=== PATIENT | female | born 1985 | race Caucasian/White ===

== ENCOUNTER 2017-09-14 00:18 | Inpatient (IN) | payer BC ==
[2017-09-14] MEDS ORDERED: Water For Irrigation,Sterile 1,000 ML Container IRR PRN (00:33)
[2017-09-14] MEDS ORDERED: Sodium Chloride 0.9% 2.5 ML Syringe FLUSH PRN (00:33)
[2017-09-14] MEDS ORDERED: Sodium Chloride 0.9% 10 ML Syringe FLUSH PRN (00:33)
[2017-09-14] MEDS ORDERED: Carboprost Tromethamine 250 MCG/1 ML Amp IM PRN (00:33)
[2017-09-14] MEDS ORDERED: Nalbuphine 10 MG/1 ML Vial IVPUSH PRN (00:33)
[2017-09-14] MEDS ORDERED: Misoprostol 200 MCG Tab PO PRN (00:33)
[2017-09-14] MEDS ORDERED: Ampicillin 2 GM in Sodium Chloride 0.9% 100 ML IV ONE (00:33)
[2017-09-14] MEDS ORDERED: Methylergonovine 0.2 MG/1 ML Amp IM PRN (00:33)
[2017-09-14] MEDS ORDERED: Lidocaine 1% 50 ML MDV INJECT PRN (00:33)
[2017-09-14] MEDS ORDERED: Misoprostol 25 MCG (1/4 of 100 MCG) Tab VAG PRN (00:38)
[2017-09-14] MEDS ORDERED: Terbutaline 1 MG/ML SDV SUBCUT PRN (00:38)
[2017-09-14] MEDS ORDERED: Misoprostol 25 MCG (1/4 of 100 MCG) Tab VAG SCH (00:45)
[2017-09-14] MEDS: Lactated Ringers 1,000 ML IV SCH ×4 (01:00→09:35)
[2017-09-14] MEDS: Butorphanol 1 MG/ML SDV IVPUSH PRN ×2 (04:06→08:06)
[2017-09-14] MEDS: Ampicillin 1 GM in Sodium Chloride 0.9% 50 ML IV SCH ×3 (06:21→14:08)
[2017-09-14] MEDS ORDERED: fentaNYL 100 MCG/2 ML SDV ONE (08:25)
[2017-09-14] MEDS ORDERED: Ropivacaine HCl/PF 100 ML ONE (08:26)
--- NOTE | 2017-09-14 09:07 | PCM.PREANE ---
Preanesthetic Assessment - Procedure Proposed Procedure: labor epidural - Anesthesia/Transfusion/Family Hx Anesthesia History: Prior Anesthesia Without Reaction Family History of Anesthesia Reaction: No Transfusion History: No Prior Transfusion(s) Intubation History: Unknown - Review of Systems General: Other (active labor) Pulmonary: No Symptoms Cardiovascular: No Symptoms Gastrointestinal: Other (severe GERD) Neurological: Other (pain of labor) Other: Reports: Anxiety - Physical Assessment NPO Status Date: 09/14/17 NPO Status Time: 07:00 Height: 5 ft 2 in Weight: 134 lb ASA Class: 2 Mental Status: Alert & Oriented x3 Airway Class: Mallampati = 1 Dentition: Reports: Normal Dentition Thyro-Mental Finger Breadths: 3 Mouth Opening Finger Breadths: 3 ROM/Head Extension: Full Lungs: Clear to Auscultation, Normal Respiratory Effort Cardiovascular: Regular Rate, Regular Rhythm, No Murmurs - Lab Values: Laboratory Last Values WBC 8.77 K/uL (4.0-11.0) 09/14/17 01:00 RBC 3.47 M/uL (4.30-5.90) L 09/14/17 01:00 Hgb 11.1 g/dL (12.0-16.0) L 09/14/17 01:00 Hct 33.4 % (36.0-46.0) L 09/14/17 01:00 MCV 96.3 fL (80.0-98.0) 09/14/17 01:00 MCH 32.0 pg (27.0-32.0) 09/14/17 01:00 MCHC 33.2 g/dL (31.0-37.0) 09/14/17 01:00 RDW Std Deviation 47.0 fl (28.0-62.0) 09/14/17 01:00 RDW Coeff of Blue 14 % (11.0-15.0) 09/14/17 01:00 Plt Count 202 K/uL (150-400) 09/14/17 01:00 MPV 11.60 fL (7.40-12.00) 09/14/17 01:00 Blood Type O NEGATIVE 09/14/17 01:00 Antibody Screen NEGATIVE 09/14/17 01:00 - Allergies Allergies/Adverse Reactions: Allergies Allergy/AdvReac Type Severity Reaction Status Date / Time codeine Allergy Nausea and Verified 09/14/17 00:32 Vomiting - Blood Blood Available: No Product(s) Available: None - Acknowledgements Anesthesia Type Planned: Epidural Pt an Appropriate Candidate for the Planned Anesthesia: Yes Alternatives and Risks of Anesthesia Discussed w Pt/Guardian: Yes Pt/Guardian Understands and Agrees with Anesthesia Plan: Yes PreAnesthesia Questionnaire HEENT History: Reports: None Respiratory History: Reports: Other (See Below) Other Respiratory History: pluerisy Gastrointestinal History: Reports: Other (See Below) Other Gastrointestinal History: heartburn Genitourinary History: Reports: Other (See Below) Other Genitourinary History: yeast infection during Musculoskeletal History: Reports: Back Pain, Chronic Other Musculoskeletal History: hx herniated disc in lower back Oncologic (Cancer) History: Reports: Cervix - Infectious Disease History Infectious Disease History: Reports: Chicken Pox - Past Surgical History HEENT Surgical History: Reports: Oral Surgery Other HEENT Surgeries/Procedures: teeth removed at 26 years of age wears dentures Oncologic Surgical History: Reports: Other (See Below) Other Oncologic Surgeries/Procedures: LEEP - SUBSTANCE USE Smoking Status *Q: Current Every Day Smoker Tobacco Use Within Last Twelve Months: Smokeless Tobacco Second Hand Smoke Exposure: No Recreational Drug Use History: No - CURRENT (IN HOUSE) MEDS Current Meds: Current Medications Butorphanol Tartrate (Stadol) 1 mg IVPUSH Q1H PRN PRN Reason: Pain Last Admin: 09/14/17 08:06 Dose: 1 mg Carboprost Tromethamine (Hemabate Ds) 250 mcg IM ASDIRECTED PRN PRN Reason: Post Hemorrhage Lactated Ringer's (Ringers, Lactated) 1,000 mls @ 150 mls/hr IV ASDIRECTED DENISE Last Admin: 09/14/17 08:41 Dose: 150 mls/hr Oxytocin/Sodium Chloride (Oxytocin 30 Unit/500 Ml-Ns) 30 unit in 500 mls @ 2 mls/hr IV TITRATE DENISE; 2 MUNITS/MIN PRN Reason: Protocol Ampicillin Sodium 1 gm/ Sodium (Chloride) 50 mls @ 100 mls/hr IV Q4H DENISE Last Admin: 09/14/17 06:21 Dose: 100 mls/hr Lidocaine HCl (Xylocaine 1%) 50 ml INJECT .ONCE PRN PRN Reason: Laceration repair Methylergonovine Maleate (Methergine) 0.2 mg IM ASDIRECTED PRN PRN Reason: Post Hemorrhage Misoprostol (Cytotec) 200 mcg PO .ONCE PRN PRN Reason: Post Hemorrhage Misoprostol (Cytotec) 25 mcg VAG .ONCE DENISE Last Admin: 09/14/17 02:12 Dose: 25 mcg Misoprostol (Cytotec) 25 mcg VAG Q4H PRN PRN Reason: Cervical Ripening Nalbuphine HCl (Nubain) 10 mg IVPUSH Q1H PRN PRN Reason: Pain (severe 7-10) Sodium Chloride (Saline Flush) 10 ml FLUSH ASDIRECTED PRN PRN Reason: Keep Vein Open Sodium Chloride (Saline Flush) 2.5 ml FLUSH ASDIRECTED PRN PRN Reason: Keep Vein Open Sterile Water (Sterile Water For Irrigation) 1,000 ml IRR ASDIRECTED PRN PRN Reason: delivery Terbutaline Sulfate (Brethine) 0.25 mg SUBCUT ASDIRECTED PRN PRN Reason: Tacysystole Discontinued Medications Fentanyl (Sublimaze) Confirm Administered Dose 100 mcg .ROUTE .STK-MED ONE Stop: 09/14/17 08:26 Ampicillin Sodium 2 gm/ Sodium (Chloride) 100 mls @ 200 mls/hr IV ONETIME ONE Stop: 09/14/17 01:02 Last Admin: 09/14/17 01:25 Dose: 200 mls/hr Ropivacaine (Naropin 0.2%) Confirm Administered Dose 100 mls @ as directed .ROUTE .STK-MED ONE Stop: 09/14/17 08:27
--- NOTE | 2017-09-14 10:39 | PCM.SN ---
- Free Text/Narrative Note: Pump alarmed. bedside changes and patient vitals observed - no change, comfortable, labor progressing.
[2017-09-14] MEDS: Oxytocin/0.9 % Sodium Chloride 30 UNIT/500 ML BAG IV SCH ×2 (16:05→16:36)
[2017-09-14] MEDS ORDERED: Oxytocin 10 Units/1 ML SDV ONE (16:26)
[2017-09-14] MEDS ORDERED: Bisacodyl 10 MG Supp RECTAL PRN (16:41)
[2017-09-14] MEDS ORDERED: Docusate Sodium 100 MG Cap PO PRN (16:41)
[2017-09-14] MEDS ORDERED: Benzocaine/Menthol 20%-0.5% Spray 78 GM Cannister TOP PRN (16:41)
[2017-09-14] MEDS ORDERED: Ibuprofen 400 MG Tab PO PRN (16:41)
[2017-09-14] MEDS ORDERED: Acetaminophen 500 MG Tab PO PRN ×2 (16:41)
[2017-09-14] MEDS ORDERED: Witch Hazel Medicated Pads 40/Jar TOP PRN (16:41)
[2017-09-14] MEDS ORDERED: Lanolin 100% Cream 7 GM Tube TOP PRN (16:41)
[2017-09-14] MEDS: Ibuprofen 800 MG Tab PO PRN (17:36)
[2017-09-14] MEDS: oxyCODONE 5 MG Tab PO PRN ×2 (18:09→21:28)
--- NOTE | 2017-09-14 21:26 | PCM48HPAN ---
Post Anesthesia Note - EVALUATION WITHIN 48HRS OF ANESTHETIC Vital Signs in Normal Range: Yes Patient Participated in Evaluation: Yes Respiratory Function Stable: Yes Airway Patent: Yes Cardiovascular Function Stable: Yes Hydration Status Stable: Yes Pain Control Satisfactory: Yes Nausea and Vomiting Control Satisfactory: Yes Mental Status Recovered: Yes - COMMENTS/OBSERVATIONS Free Text/Narrative:: epidural cath removed by RN intact after delivery early this afternoon. Holding baby and feeling very well without complaint. very happy with choice of having epidural analgesia to permit an easier labor than her prior two pregnancies/ deliveries.
[2017-09-15] MEDS: oxyCODONE 5 MG Tab PO PRN ×4 (01:21→17:41)
[2017-09-15] MEDS: Ibuprofen 800 MG Tab PO PRN ×3 (01:22→16:35)
[2017-09-15] MEDS ORDERED: Measles, Mumps & Rubella Vaccine 0.5 ML SDV SUBCUT ONE (10:56)
--- NOTE | 2017-09-15 11:01 | PCM.PNPP ---
- General Info Date of Service: 09/15/17 Admission Dx/Problem (Free Text): 32 yo P3 s/p PPD1 Subjective Update: Patient seen at bedside , ambulating , voiding tolerating regular diet, she complains of back pain and bilateral pedal edema , non tender Functional Status: Reports: Pain Controlled, Tolerating Diet - Review of Systems General: Reports: No Symptoms HEENT: Reports: No Symptoms Pulmonary: Reports: No Symptoms Cardiovascular: Reports: No Symptoms Gastrointestinal: Reports: No Symptoms Genitourinary: Reports: No Symptoms Musculoskeletal: Reports: No Symptoms Skin: Reports: No Symptoms Neurological: Reports: No Symptoms Psychiatric: Reports: No Symptoms - General Info Date of Service: 09/15/17 - Patient Data Vital Signs - Most Recent: Last Vital Signs Temp 36.3 C 09/15/17 08:16 Pulse 65 09/15/17 08:16 Resp 16 09/15/17 08:16 BP 95/63 09/15/17 08:16 Pulse Ox 97 09/15/17 08:16 Weight - Most Recent: 60.781 kg Lab Results - Last 24 Hours: Laboratory Results - last 24 hr 09/14/17 09/15/17 Range/Units 16:41 05:34 Hgb 10.0 L (12.0-16.0) g/dL Hct 30.7 L (36.0-46.0) % Rhogam Indicated NO, MOM+BABY RH NEG Med Orders - Current: Current Medications Acetaminophen (Tylenol Extra Strength) 500 mg PO Q4H PRN PRN Reason: Pain Last Admin: 09/14/17 21:29 Dose: 500 mg Acetaminophen (Tylenol Extra Strength) 1,000 mg PO Q4H PRN PRN Reason: Pain Benzocaine/Menthol (Dermoplast Pain Relief 20%-0.5% [place]) 78 gm TOP ASDIRECTED PRN PRN Reason: Perineal Comfort Measure Last Admin: 09/14/17 18:14 Dose: 1 sprays(dnu) Bisacodyl (Dulcolax) 10 mg RECTAL .ONCE PRN PRN Reason: Constipation Butorphanol Tartrate (Stadol) 1 mg IVPUSH Q1H PRN PRN Reason: Pain Last Admin: 09/14/17 08:06 Dose: 1 mg Carboprost Tromethamine (Hemabate Ds) 250 mcg IM ASDIRECTED PRN PRN Reason: Post Hemorrhage Docusate Sodium (Colace) 100 mg PO BID PRN PRN Reason: Constipation Emollient Ointment (Lansinoh Hpa) 0 gm TOP ASDIRECTED PRN PRN Reason: Sore Nipples Last Admin: 09/14/17 18:13 Dose: 1 applic Lactated Ringer's (Ringers, Lactated) 1,000 mls @ 150 mls/hr IV ASDIRECTED DENISE Last Admin: 09/14/17 09:35 Dose: 150 mls/hr Oxytocin/Sodium Chloride (Oxytocin 30 Unit/500 Ml-Ns) 30 unit in 500 mls @ 2 mls/hr IV TITRATE DENISE; 2 MUNITS/MIN PRN Reason: Protocol Last Admin: 09/14/17 16:36 Dose: 500 mls/hr Ampicillin Sodium 1 gm/ Sodium (Chloride) 50 mls @ 100 mls/hr IV Q4H [facility] Last Admin: 09/14/17 14:08 Dose: 100 mls/hr Ibuprofen (Motrin) 400 mg PO Q4H PRN PRN Reason: Pain Ibuprofen (Motrin) 800 mg PO Q6H PRN PRN Reason: Pain Last Admin: 09/15/17 08:12 Dose: 800 mg Lidocaine HCl (Xylocaine 1%) 50 ml INJECT .ONCE PRN PRN Reason: Laceration repair Measles/Mumps/Rubella Vaccine Live (M-M-R Ii Vaccine) 0.5 ml SUBCUT .ONCE ONE Stop: 09/15/17 10:57 Methylergonovine Maleate (Methergine) 0.2 mg IM ASDIRECTED PRN PRN Reason: Post Hemorrhage Misoprostol (Cytotec) 200 mcg PO .ONCE PRN PRN Reason: Post Hemorrhage Misoprostol (Cytotec) 25 mcg VAG .ONCE DENISE Last Admin: 09/14/17 02:12 Dose: 25 mcg Misoprostol (Cytotec) 25 mcg VAG Q4H PRN PRN Reason: Cervical Ripening Nalbuphine HCl (Nubain) 10 mg IVPUSH Q1H PRN PRN Reason: Pain (severe 7-10) Oxycodone HCl (Oxycodone) 5 mg PO Q2H PRN PRN Reason: Pain Last Admin: 09/15/17 08:13 Dose: 5 mg Sodium Chloride (Saline Flush) 10 ml FLUSH ASDIRECTED PRN PRN Reason: Keep Vein Open Sodium Chloride (Saline Flush) 2.5 ml FLUSH ASDIRECTED PRN PRN Reason: Keep Vein Open Sterile Water (Sterile Water For Irrigation) 1,000 ml IRR ASDIRECTED PRN PRN Reason: delivery Last Admin: 09/14/17 16:18 Dose: 1,000 ml Terbutaline Sulfate (Brethine) 0.25 mg SUBCUT ASDIRECTED PRN PRN Reason: Tacysystole Witch Nandini (Tucks) 1 pad TOP ASDIRECTED PRN PRN Reason: comfort care Last Admin: 09/14/17 18:15 Dose: 2 pad Discontinued Medications Fentanyl (Sublimaze) Confirm Administered Dose 100 mcg .ROUTE .STK-MED ONE Stop: 09/14/17 08:26 Ampicillin Sodium 2 gm/ Sodium (Chloride) 100 mls @ 200 mls/hr IV ONETIME ONE Stop: 09/14/17 01:02 Last Admin: 09/14/17 01:25 Dose: 200 mls/hr Ropivacaine (Naropin 0.2%) Confirm Administered Dose 100 mls @ as directed .ROUTE .STK-MED ONE Stop: 09/14/17 08:27 Oxytocin (Pitocin) Confirm Administered Dose 10 unit .ROUTE .STK-MED ONE Stop: 09/14/17 16:27 - Infant Interaction Infant Disposition, : Cadet at Bedside Support Person: - Recovery Exam Fundal Tone: Firm Fundal Level: 1 Fingerbreadths Below Umbilicus Fundal Placement: Midline Lochia Amount: Scant Lochia Color: Rubra/Red Perineum Description: Edematous Episiotomy/Laceration: Approximated Bladder Status: Voiding Urinary Elimination: Voided - Exam General: Alert HEENT: Pupils Equal Lungs: Clear to Auscultation Cardiovascular: Regular Rate GI/Abdominal Exam: Normal Bowel Sounds Extremities: Normal Inspection - Problem List & Annotations (1) Vaginal delivery SNOMED Code(s): 147998128 Code(s): O80 - ENCOUNTER FOR FULL-TERM UNCOMPLICATED DELIVERY Status: Acute Current Visit: Yes - Problem List Review Problem List Initiated/Reviewed/Updated: Yes - My Orders Last 24 Hours: My Active Orders 09/14/17 16:41 Acetaminophen [Tylenol Extra Strength] 1,000 mg PO Q4H PRN Acetaminophen [Tylenol Extra Strength] 500 mg PO Q4H PRN Benzocaine/Menthol [Dermoplast Pain Relief 20%-0.5% [place]] 78 gm TOP ASDIRECTED PRN Bisacodyl [Dulcolax] 10 mg RECTAL .ONCE PRN Docusate Sodium [Colace] 100 mg PO BID PRN Ibuprofen [Motrin] 400 mg PO Q4H PRN Ibuprofen [Motrin] 800 mg PO Q6H PRN Lanolin [Lansinoh HPA] See Dose Instructions TOP ASDIRECTED PRN Witch Nandini [Tucks] 1 pad TOP ASDIRECTED PRN oxyCODONE 5 mg PO Q2H PRN 09/14/17 16:42 Patient Status [ADT] Routine May Shower [RC] ASDIRECTED Vital Signs [RC] PER UNIT ROUTINE Assess Lochia [WOMSER] Per Unit Routine Assess Uterine Involution [WOMSER] Per Unit Routine Peripheral IV Discontinue [OM.PC] Routine 09/15/17 10:56 Vaccines to be Administered [RC] PER UNIT ROUTINE Measles, Mumps & Rubella [M-M-R II Vaccine] 0.5 ml SUBCUT .ONCE ONE 09/15/17 Breakfast Regular Diet [DIET] - Assessment Assessment:: 32 yo P3 s/p , 2nd degree laceration repaired , RH negative , rh negative - Plan Plan:: Discharge home today Continue Iron and PNV OTC pain control with Motrin and tylenol MMR before discharge
--- NOTE | 2017-09-15 17:41 | OR ---
SURGEON: SUHA PETER DATE OF PROCEDURE: PREOPERATIVE DIAGNOSES: A 32-year-old 5, para 2-0-2-2, at 39 weeks 0 days for an elective induction of labor. GBS positive , O negative. mild intermittent asthma. POSTOPERATIVE DIAGNOSES: A 32-year-old, para 3 now, status post normal spontaneous vaginal delivery. Second-degree perineal laceration repaired . ESTIMATED BLOOD LOSS: 350. ANESTHESIA: Epidural. BRIEF HISTORY: The patient is a 32-year-old, G5, P2-0-2-2, at 39 weeks 0 days, wanted to be induced electively because of the availability of her . She had an uncomplicated , except for lower back pain, which she managed with pain reliever and she was seen by chiropractor. O negative, received RhoGAM, had mild intermittent asthma which was well controlled. On admission for induction, she was 1, 70, -3. Ampicillin was given for GBS prophylaxis She received one dose of Cytotec after which she became 4, 50, -3. The patient progressed on her own and when she was re-evaluated, she was 6, 50, -2 , AROM done., Clear fluid was noted. The patient had a normal labor course and became fully dilated. Throughout the induction period, the patient had a category 1 heart tracing. When the patient was fully dilated, she was encouraged to push. The patient pushed for about an hour FINDINGS: A live female delivered at 1604 hours, score was 9 and 9. Wt 7lb 50z She had a 3-vessel cord and also a second-degree perineal laceration was noted which was repaired. PROCEDURE DETAILS: After the patient was noted to be fully dilated, she was encouraged to push. With the patient's good pushing effort,there was a gradual descent of head through the perineum. With maternal pushing effort, the head was delivered, then the shoulder was allowed to restitute. Anterior shoulder was delivered, followed by the posterior shoulder. There was cord noted around the body, which was reduced. After delivery of the baby, the baby was placed on the mother's abdomen. Delayed cord clamping was observed. The cord was then clamped and cut. The placenta was delivered via controlled contraction. After delivery of the placenta, placenta was inspected and noted to be intact. The perineum was also then inspected and noted to have a second-degree laceration which was repaired with 3-0 Monocryl interlocking. After repair of the perineum. The uterus was found to be firm, and the perineum was found to be hemostatic. All instrument and pad counts were correct x2, and the patient was bonding with mother. LYNNE JUAREZ /[id number] JOSÉ MIGUEL
[2017-09-17] MEDS ORDERED: Measles, Mumps & Rubella Vaccine 0.5 ML SDV SUBCUT ONE (10:56)
== END 2017-09-15 18:55 | disposition home or self-care (01) | DRG 560 ==
LOC: MW.OBCHECK 00:18 → MW.OB 00:23 → OBSVTOIN 16:04
PROVIDERS: ADMIT Obstetrics & Gynecology; ATTEND Obstetrics & Gynecology
PROC: 10E0XZZ Delivery of Products of Conception, External Approach (ICD-10-PCS; principal; 2017-09-14)
PROC: 3E0P7VZ Introduction of Hormone into Female Reproductive, Via Natural or Artificial Opening (ICD-10-PCS; 2017-09-14)
PROC: 10907ZC Drainage of Amniotic Fluid, Therapeutic from Products of Conception, Via Natural or Artificial Opening (ICD-10-PCS; 2017-09-14)
PROC: 0KQM0ZZ Repair Perineum Muscle, Open Approach (ICD-10-PCS; 2017-09-14)
DX: O70.1 Second degree perineal laceration during delivery (principal); Z3A.39 39 weeks gestation of pregnancy; Z37.0 Single live birth; J45.909 Unspecified asthma, uncomplicated
CPT/HCPCS: 36415; 51702; 59025; 59409; 85014; 85018; 85027; 86850; 86900; 86901; A9270-GY; J0290; J0595; J2590; J7030; J7050; J7120

== ENCOUNTER 2020-09-17 08:35 | Emergency (ER) | payer BC ==
[2020-09-17] MEDS ORDERED: Sodium Chloride 0.9% 2.5 ML Syringe FLUSH PRN (08:50)
[2020-09-17] MEDS ORDERED: Sodium Chloride 0.9% 10 ML Syringe FLUSH PRN (08:50)
[2020-09-17 09:33] LABS: CARBON DIOXIDE,CO2 31.7 mmol/L (21.0-32.0); POTASSIUM,K 2.8 mmol/L (3.5-5.1)
[2020-09-17] MEDS ORDERED: fentaNYL 50 MCG/ML SDV IVPUSH ONE ×2 (09:35→12:35)
[2020-09-17] MEDS ORDERED: Famotidine 20 MG/2 ML SDV IVPUSH ONE (09:35)
[2020-09-17] MEDS ORDERED: Ondansetron 4 MG/2 ML SDV IVPUSH ONE ×2 (09:35→12:35)
[2020-09-17] MEDS ORDERED: Potassium Chloride 10% 20 MEQ/15 ML Soln 30 ML UD Cup PO ONE (09:58)
[2020-09-17] MEDS ORDERED: Magnesium Sulfate/Water 2 GM in Premix Bag 1 BAG IV ONE (09:58)
[2020-09-17] MEDS ORDERED: Lactated Ringers 1,000 ML IV ONE (09:58)
--- NOTE | 2020-09-17 10:23 | EDM.PDOC ---
ED HPI GENERAL MEDICAL PROBLEM - General Chief Complaint: Abdominal Pain Stated Complaint: LIVER ISSUES Time Seen by Provider: 09/17/20 08:48 Source of Information: Reports: Patient, Old Records History Limitations: Reports: No Limitations - History of Present Illness INITIAL COMMENTS - FREE TEXT/NARRATIVE: This is a 35-year-old female with a past medical history of alcohol dependence and GERD, being worked up for new alcoholic liver disease presenting with nausea, vomiting, diarrhea, abdominal pain, fatigue, and cough. Symptoms present for 1 week. She is following with a family physician here in the area who is suspicious that the patient has alcoholic liver disease, although she has not been referred to a boiler house supervisor or screen print operator yet. The patient states that she was noted to have abnormal liver function tests which were ordered by her primary doctor within the past few weeks. No sick contacts. Denies fever, chest pain, shortness of breath, hematemesis, bloody stools, dysuria, urinary frequency. Does complain of some intermittent epigastric abdominal pain primarily when she is vomiting. At present she is having epigastric abdominal pain and nausea. ROS: A 10-point review of systems was negative, except as noted in the HPI (or in the ROS section of this note). Past medical history: Reviewed, no additional pertinent history. Surgical history: Reviewed in system, no additional pertinent history. Social history: Reviewed in system, no additional pertinent history. Family history: Reviewed in system, no additional pertinent history. PHYSICAL EXAM Vital signs reviewed. Nursing notes reviewed. Constitutional: Awake, alert, non-distressed. Head: Normocephalic, atraumatic. Eyes: EOMI, conjunctiva normal, no discharge, slight scleral icterus. Ears, Nose, Throat: External ears and nose normal, moist oral mucosa. Cardiovascular: Tachycardic, 2+ radial pulse, capillary refill less than 2 seconds. Pulmonary: normal work of breathing, no accessory muscle use. Abdomen/GI: Soft, mild epigastric tenderness, nondistended, no guarding or rigidity, no masses. Musculoskeletal: No deformities. Integumentary: Appropriate color for ethnicity, warm, dry, no pallor or jaundice, no rash. Neurologic: Alert, answering questions appropriately, normal speech, no facial droop, moving all extremities well. Psychiatric: Appropriate mood and affect, normal thought process. This patient was seen and evaluated during the 2019 SARS-CoV-2 novel coronavirus pandemic period. Community viral transmission is ongoing at time of this encounter and the emergency department is operating under pandemic response procedures. Left Upper Abdomen Pain Score (Numeric/FACES): 10 - Related Data Allergies Allergy/AdvReac Type Severity Reaction Status Date / Time codeine Allergy Nausea and Verified 09/17/20 08:42 Vomiting Home Meds: Home Meds Omeprazole 20 mg PO DAILY 09/17/20 [History] Ondansetron [Zofran] 4 mg PO Q8H PRN #15 tab 09/17/20 [Rx] Potassium Chloride 40 meq PO DAILY 5 Days #10 packet 09/17/20 [Rx] Past Medical History HEENT History: Reports: None Respiratory History: Reports: Other (See Below) Other Respiratory History: pluerisy Gastrointestinal History: Reports: Other (See Below) Other Gastrointestinal History: heartburn Genitourinary History: Reports: Other (See Below) Other Genitourinary History: yeast infection during Musculoskeletal History: Reports: Back Pain, Chronic Other Musculoskeletal History: hx herniated disc in lower back Oncologic (Cancer) History: Reports: Cervix - Infectious Disease History Infectious Disease History: Reports: Chicken Pox, Influenza - Past Surgical History HEENT Surgical History: Reports: Oral Surgery Other HEENT Surgeries/Procedures: teeth removed at 26 years of age wears dentures Oncologic Surgical History: Reports: Other (See Below) Other Oncologic Surgeries/Procedures: LEEP Social & Family History - Family History HEENT: Reports: Cataract, Glaucoma, Impaired Vision Cardiac: Reports: CAD, High Cholesterol, Hypertension GI: Reports: Cholelithiasis, Hepatitis OBGYN: Reports: Endometriosis Musculoskeletal: Reports: Arthritis, Back pain, Chronic, Neck Pain, Chronic, Osteoarthritis, RA Neurological: Reports: Alzheimers Disease, Dementia, Parkinson's Psychiatric: Reports: ADD, ADHD, Anxiety, Depression, Emotional Problems, Learning Disability, Mood Swings, Panic Attack Endocrine/Metabolic: Reports: Diabetes, type II, Hyperthyroidism Oncologic: Reports: Leukemia - Tobacco Use Tobacco Use Status *Q: Never Tobacco User - Caffeine Use Caffeine Use: Reports: Soda - Alcohol Use Days Per Week of Alcohol Use: 7 Number of Drinks Per Day: 7 Total Drinks Per Week: 49 - Recreational Drug Use Recreational Drug Use: No ED ROS GENERAL - Review of Systems Review Of Systems: See Below ED EXAM, GENERAL - Physical Exam Exam: See Below #1 Interpretation EKG Interpretation Comments: 12-Lead ECG Interpretation Acquired: 10:24 AM Rhythm: Sinus rhythm Rate: 60 bpm [place]: Normal Intervals: Normal Ectopy: None RV Strain: No obvious RV strain pattern. ST Segments/T-Waves: Biphasic T waves in leads V2 through 4, otherwise no acute changes Acute Ischemic Changes: None apparent Interpretation: No STEMI Course - Vital Signs Text/Narrative:: 35-year-old female presenting with a 1 week history of cough, abdominal pain, nausea, vomiting, diarrhea, fatigue, and jaundice. Patient mildly tachycardic but hemodynamically stable, afebrile, well-appearing, looks nontoxic. Differential diagnosis includes but is not limited to: Alcoholic hepatitis, obstructive hepatic pathology, cholecystitis, cholangitis, viral hepatitis, acetaminophen overdose, COVID-19, sepsis, intra-abdominal infection, gastritis, less likely acute coronary syndrome, pancreatitis, Boerhaave syndrome, and many others. CBC shows mild thrombocytopenia, otherwise normal cell lines. Metabolic panel shows hypokalemia with a potassium of 2.8, creatinine is mildly elevated at 1.1. Troponin is negative. Lipase is within normal limits, test is negative. LFTs show elevated total bilirubin at 7.7, AST 226, ALT 134, alkaline phosphatase 177. Patient has a history of alcoholic hepatitis by history although this is not documented in her chart and she does not receive care in our system. 10:22 AM: Ordered lactated Ringer's bolus, magnesium sulfate IV, p.o. potassium. IV fentanyl for pain, added on acetaminophen level. CT abdomen/pelvis and Covid test are pending. 11:10 AM: Tylenol level is negative. We are awaiting COVID-19 testing and radiology read of the CT abdomen/pelvis. Patient is resting comfortably. 12:07 PM: CT abdomen/pelvis shows severe diffuse hepatic steatosis, unchanged from most recent CT scan on 08/19/2020. Hepatomegaly and severe hepatic steatosis are stable. No acute findings today. We are waiting on the rapid Covid test. 2:19 PM: Covid testing is positive. I believe that explains the patient's symptoms of nausea, vomiting, diarrhea, abdominal pain, fatigue, and cough. She is not hypoxic and shows no signs of respiratory compromise or impairment at this point her twelve-lead EKG looks nonischemic and her troponin is negative. Her bilirubin is fairly elevated at 7.7, however, her CT abdomen/pelvis looks unchanged from July 2020. At this point I have a low suspicion for an obstructive pathology such as choledocholithiasis and the patient does not really have any infectious symptoms to suggest a sending cholangitis or any other acute intra-abdominal surgical emergency at this point. She has no leukocytosis and her tachycardia resolved with some IV fluids. Her LFTs are elevated however this could be due to either alcohol use or viral infection with COVID-19. I see no ECG changes such as U-waves to suggest severe hypokalemia. She does not seem to have any evidence of a surgical emergency at this point. I do not think that we need to involve a boiler house supervisor or screen print operator given that her primary doctor is working her up for her elevated LFTs. Otherwise her symptoms could be explained by COVID-19 infection. We did give her some magnesium sulfate and p.o. potassium. We gave her some Zofran and she is able to tolerate p.o. intake after this. Her pain seems to be fairly well controlled. We did discuss observation stay versus discharge home. Unfortunately, we do not have any beds at our facility for COVID-19 positive patients at this point. The patient is not interested in being transferred to another hospital to [facility] further treatment for her pain and nausea. She wants to go home. I am going to prescribe some Zofran for nausea and vomiting. We recommended acetaminophen as well, maximum dose 300 mg/day for any pain. I strictly explained the need to follow-up with your primary doctor in the next few days to recheck her serum potassium and her LFTs. I explained her CT scan findings and told her that she needs to follow-up with her primary doctor closely for further work-up of the elevated liver function tests to see if she needs to be referred to a boiler house supervisor or screen print operator for further work- up. The patient voiced understanding and has no questions at this point. We also discussed Covid isolation precautions and return precautions. Plan: Patient is stable to discharge home with outpatient primary care clinic follow-up. Strict emergency department return precautions were provided, patient indicated understanding. All questions were answered prior to departure. Discharged in good condition. Last Recorded V/S: Last Vital Signs Temp 35.6 C L 09/17/20 13:02 Pulse 104 H 09/17/20 08:43 Resp 18 09/17/20 08:43 BP 112/79 09/17/20 08:43 Pulse Ox 95 09/17/20 08:43 - Orders/Labs/Meds Orders: Active Orders 24 hr Category Date Time Status EKG 12 Lead [EKG Documentation Completion] [RC] STAT Care 09/17/20 09:38 Active Pulse Oximetry [RC] ASDIRECTED Care 09/17/20 08:50 Active Nothing Per Oral Diet [DIET] Diet 09/17/20 Breakfast Active CORONAVIRUS COVID-19 PCR PHL Stat Lab 09/17/20 12:15 Received Sodium Chloride 0.9% [Saline Flush] Med 09/17/20 08:50 Active 10 ml FLUSH ASDIRECTED PRN Sodium Chloride 0.9% [Saline Flush] Med 09/17/20 08:50 Active 2.5 ml FLUSH ASDIRECTED PRN Saline Lock Insert [OM.PC] Stat Oth 09/17/20 08:51 Ordered Medication Orders Sodium Chloride (Saline Flush) 10 ml FLUSH ASDIRECTED PRN PRN Reason: Keep Vein Open Last Admin: 09/17/20 10:07 Dose: 10 ml Documented by: [id number] Sodium Chloride (Saline Flush) 2.5 ml FLUSH ASDIRECTED PRN PRN Reason: Keep Vein Open Last Admin: 09/17/20 10:08 Dose: 2.5 ml Documented by: [id number] Labs: Laboratory Tests 09/17/20 09/17/20 09/17/20 Range/Units 09:00 09:00 09:00 WBC 9.64 (4.0-11.0) K/uL RBC 3.70 L (4.30-5.90) M/uL Hgb 14.7 (12.0-16.0) g/dL Hct 40.7 (36.0-46.0) % MCV 110.0 H (80.0-98.0) fL MCH 39.7 H (27.0-32.0) pg MCHC 36.1 (31.0-37.0) g/dL RDW Std Deviation 55.8 (28.0-62.0) fl RDW Coeff of Blue 14 (11.0-15.0) % Plt Count 147 L (150-400) K/uL MPV 12.70 H (7.40-12.00) fL Neut % (Auto) 88.3 H (48.0-80.0) % Lymph % (Auto) 6.5 L (16.0-40.0) % Barrow % (Auto) 5.0 (0.0-15.0) % Eos % (Auto) 0.0 (0.0-7.0) % Baso % (Auto) 0.2 (0.0-1.5) % Neut # (Auto) 8.5 H (1.4-5.7) K/uL Lymph # (Auto) 0.6 (0.6-2.4) K/uL Barrow # (Auto) 0.5 (0.0-0.8) K/uL Eos # (Auto) 0.0 (0.0-0.7) K/uL Baso # (Auto) 0.0 (0.0-0.1) K/uL Nucleated RBC % 0.0 /100WBC Nucleated RBCs # 0 K/uL Sodium 139 (136-145) mmol/L Potassium 2.8 L (3.5-5.1) mmol/L Chloride 96 L (98-107) mmol/L Carbon Dioxide 31.7 (21.0-32.0) mmol/L BUN 10 (7.0-18.0) mg/dL Creatinine 1.1 H (0.6-1.0) mg/dL Est Cr Clr Drug Dosing 48.10 mL/min Estimated GFR (MDRD) 56.2 ml/min Glucose 100 (74-106) mg/dL Calcium 8.6 (8.5-10.1) mg/dL Total Bilirubin 7.7 H (0.2-1.0) mg/dL AST 226 H (15-37) IU/L ALT 134 H (14-63) IU/L Alkaline Phosphatase 177 H (46-116) U/L Troponin I (0.000-0.056) ng/mL Total Protein 6.4 (6.4-8.2) g/dL Albumin 3.0 L (3.4-5.0) g/dL Globulin 3.4 (2.6-4.0) g/dL Albumin/Globulin Ratio 0.9 (0.9-1.6) Lipase 200 (73-393) U/L HCG, Qual NEGATIVE (NEG) Acetaminophen ug/mL SARS CoV-2 RNA Rapid TORITO (NEGATIVE) 09/17/20 09/17/20 09/17/20 Range/Units 09:00 09:00 12:15 WBC (4.0-11.0) K/uL RBC (4.30-5.90) M/uL Hgb (12.0-16.0) g/dL Hct (36.0-46.0) % MCV (80.0-98.0) fL MCH (27.0-32.0) pg MCHC (31.0-37.0) g/dL RDW Std Deviation (28.0-62.0) fl RDW Coeff of Blue (11.0-15.0) % Plt Count (150-400) K/uL MPV (7.40-12.00) fL Neut % (Auto) (48.0-80.0) % Lymph % (Auto) (16.0-40.0) % Barrow % (Auto) (0.0-15.0) % Eos % (Auto) (0.0-7.0) % Baso % (Auto) (0.0-1.5) % Neut # (Auto) (1.4-5.7) K/uL Lymph # (Auto) (0.6-2.4) K/uL Barrow # (Auto) (0.0-0.8) K/uL Eos # (Auto) (0.0-0.7) K/uL Baso # (Auto) (0.0-0.1) K/uL Nucleated RBC % /100WBC Nucleated RBCs # K/uL Sodium (136-145) mmol/L Potassium (3.5-5.1) mmol/L Chloride (98-107) mmol/L Carbon Dioxide (21.0-32.0) mmol/L BUN (7.0-18.0) mg/dL Creatinine (0.6-1.0) mg/dL Est Cr Clr Drug Dosing mL/min Estimated GFR (MDRD) ml/min Glucose (74-106) mg/dL Calcium (8.5-10.1) mg/dL Total Bilirubin (0.2-1.0) mg/dL AST (15-37) IU/L ALT (14-63) IU/L Alkaline Phosphatase (46-116) U/L Troponin I < 0.050 (0.000-0.056) ng/mL Total Protein (6.4-8.2) g/dL Albumin (3.4-5.0) g/dL Globulin (2.6-4.0) g/dL Albumin/Globulin Ratio (0.9-1.6) Lipase (73-393) U/L HCG, Qual (NEG) Acetaminophen <2.0 ug/mL SARS CoV-2 RNA Rapid TORITO POSITIVE H (NEGATIVE) Meds: Medications Generic Name Dose Route Start Last Admin Trade Name Freq PRN Reason Stop Dose Admin Sodium Chloride 10 ml 09/17/20 08:50 09/17/20 10:07 Saline Flush FLUSH 10 ml ASDIRECTED PRN Administration Keep Vein Open Sodium Chloride 2.5 ml 09/17/20 08:50 09/17/20 10:08 Saline Flush FLUSH 2.5 ml ASDIRECTED PRN Administration Keep Vein Open Discontinued Medications Generic Name Dose Route Start Last Admin Trade Name Freq PRN Reason Stop Dose Admin Famotidine 20 mg 09/17/20 09:35 09/17/20 10:18 Pepcid IVPUSH 09/17/20 09:36 20 mg ONETIME ONE Administration Fentanyl 50 mcg 09/17/20 09:35 09/17/20 10:13 Fentanyl IVPUSH 09/17/20 09:36 50 mcg ONETIME ONE Administration Fentanyl 50 mcg 09/17/20 12:35 09/17/20 12:58 Fentanyl IVPUSH 09/17/20 12:36 50 mcg ONETIME ONE Administration Lactated Ringer's 1,000 mls @ 999 mls/hr 09/17/20 09:58 09/17/20 10:05 Ringers, Lactated IV 09/17/20 10:58 999 mls/hr .BOLUS ONE Administration Magnesium Sulfate 2 gm/ Premix 50 mls @ 50 mls/hr 09/17/20 09:58 09/17/20 1 2:12 IV 09/17/20 10:57 50 mls/hr ONETIME ONE Administration Ondansetron HCl 4 mg 09/17/20 09:35 09/17/20 10:09 Zofran IVPUSH 09/17/20 09:36 4 mg ONETIME ONE Administration Ondansetron HCl 4 mg 09/17/20 12:35 09/17/20 12:54 Zofran IVPUSH 09/17/20 12:36 4 mg ONETIME ONE Administration Potassium Chloride 60 meq 09/17/20 09:58 09/17/20 10:23 Potassium Chloride PO 09/17/20 09:59 60 meq ONETIME ONE Administration Departure - Departure Time of Disposition: 14:24 Disposition: Home, Self-Care 01 Condition: Good Clinical Impression: COVID-19 virus infection, Hypokalemia, Serum total bilirubin elevated, Abnormal liver function test, Nausea, vomiting, and diarrhea - Discharge Information *PRESCRIPTION DRUG MONITORING PROGRAM REVIEWED*: Not Applicable *COPY OF PRESCRIPTION DRUG MONITORING REPORT IN PATIENT TATE: Not Applicable Prescriptions: Potassium Chloride 40 meq PO DAILY 5 Days #10 packet Ondansetron [Zofran] 4 mg PO Q8H PRN #15 tab PRN Reason: Nausea/Vomiting Instructions: COVID-19 Frequently Asked Questions, COVID-19, Liver Function Tests, Hypokalemia, Nausea and Vomiting, Adult, COVID-19: How to Protect Yourself and Others - CDC, Potassium Content of Foods, Prevent the Spread of COVID-19 if You Are Sick - [facility] Referrals: Amber Goldsmith CERTIFIED INCOME TAX PREPARER [Primary Care Provider] - 3 Days (For reevaluation of your symptoms and to have your blood potassium and liver function tests rechecked.) Forms: ED Department Discharge Additional Instructions: You were seen in the emergency department for abdominal pain, nausea, vomiting, diarrhea, and cough. The CT scan of your abdomen and pelvis shows no new findings compared to your most recent CT scan. Your liver function tests are abnormally elevated. This is not new. I do want you to follow-up closely with your primary doctor in the next few days to have your liver function tests and your blood potassium level rechecked. We are going to prescribe some potassium supplementation that you can take for the next few days to help improve your potassium level. We are also going to give you a handout about certain foods that you can eat to help boost your potassium. For pain, you can take acetaminophen which is available [id number]. You can take up to 3000 mg of acetaminophen in a 24-hour period. For diarrhea you can take [id number] Imodium A-D as directed on the package. Your COVID-19 test was positive. You need to stay home from work or school and isolate from others as much as possible. You need to wear a mask or face covering and you should cover your cough or sneeze. Wash your hands frequently. Try to isolate yourself from family members or others as much as you can. You may develop new symptoms such as a headache, sore throat, cough, sneezing, nasal congestion or drainage, chest congestion, nausea, vomiting, diarrhea, body aches, or chills. These are not unusual. Recommendations from the Centers for Disease Control (CDC) are that you should isolate at home for at least 10 days from the start of your symptoms. When your symptoms are improving for a period of 24 hours and you have no fever (without the use of fever reducing medications like acetaminophen or ibuprofen), you may discontinue isolation and go back to work/school. If you are still feeling unwell at the end of the 10-day period, you should continue to isolate until you have been feeling better for 24 hours. Anyone that lives with you or anyone that has been in close contact (within 6 feet for 15 total minutes) recently (3-4 days before your symptoms started) needs to be tested for COVID. You can take any standard wyvh-lvg-[id number] medications for cold or flu type symptoms including fever reducing medications (acetaminophen or ibuprofen), cough medications (Robitussin, cough drops or lozenges), or medications like TheraFlu or DayQuil/NyQuil. Be sure you are drinking plenty of fluids. If you are still feeling sick beyond 10-14 days after the onset of your symptoms I would recommend contacting your primary medical doctor's office for further guidance. Warning signs to come back to the emergency department include shortness of breath, chest pain, lightheadedness, loss of consciousness, if you are unable to swallow or handle drinking fluids, or if you have any other new and concerning symptoms. Thank you for choosing the [facility] emergency department in [place] for your medical needs today. It was a pleasure caring for you. The following information is given to patients seen in the emergency department who are being discharged. This information is to outline your options for follow-up care. We provide all patients seen in our emergency department with a follow-up referral. The need for follow-up, as well as the timing and circumstances, are variable depending upon the specifics of your emergency department visit. If you don't have a primary care physician on staff, we will provide you with a referral. We always advise you to contact your personal physician following an emergency department visit to inform them of the circumstance of the visit and for follow-up with them and/or the need for any referrals to a consulting specialist. The emergency department will also refer you to a specialist when appropriate. This referral assures that you have the opportunity for follow-up care with a specialist. All of these measure are taken in an effort to provide you with optimal care, which includes your follow-up. Under all circumstances we always encourage you to contact your private physician who remains a resource for coordinating your care. When calling for follow-up care, please make the office aware that this follow-up is from your recent emergency room visit. If for any reason you are refused follow-up, please contact the Emergency Department at and asked to speak to the emergency department charge nurse. If you do not have a primary care physician that is caring for you, you can contact these clinics below to set up an appointment to establish care: [facility] - Primary Care [address] [place] [address] [id number] [facility] [address] [place] [id number] Sepsis Event Note (ED) - Evaluation Sepsis Screening Result: No Definite Risk - Focused Exam Vital Signs: Vital Signs Temp Temp Pulse Resp BP Pulse Ox 09/17/20 13:02 35.6 C L 09/17/20 08:43 35.6 C L 104 H 18 112/79 95 - My Orders Last 24 Hours: My Active Orders 09/17/20 Breakfast Nothing Per Oral Diet [DIET] 09/17/20 08:50 Pulse Oximetry [RC] ASDIRECTED Sodium Chloride 0.9% [Saline Flush] 10 ml FLUSH ASDIRECTED PRN Sodium Chloride 0.9% [Saline Flush] 2.5 ml FLUSH ASDIRECTED PRN 09/17/20 08:51 Saline Lock Insert [OM.PC] Stat 09/17/20 09:38 EKG 12 Lead [EKG Documentation Completion] [RC] STAT 09/17/20 12:15 CORONAVIRUS COVID-19 PCR PHL Stat - Assessment/Plan Last 24 Hours: My Active Orders 09/17/20 Breakfast Nothing Per Oral Diet [DIET] 09/17/20 08:50 Pulse Oximetry [RC] ASDIRECTED Sodium Chloride 0.9% [Saline Flush] 10 ml FLUSH ASDIRECTED PRN Sodium Chloride 0.9% [Saline Flush] 2.5 ml FLUSH ASDIRECTED PRN 09/17/20 08:51 Saline Lock Insert [OM.PC] Stat 09/17/20 09:38 EKG 12 Lead [EKG Documentation Completion] [RC] STAT 09/17/20 12:15 CORONAVIRUS COVID-19 PCR PHL Stat
--- NOTE | 2020-09-17 11:53 | CT ---
INDICATION: Epigastric abdomen pain. TECHNIQUE: CT abdomen and pelvis acquired with 100 cc Isovue 370 IV contrast. COMPARISON: August 19, 2020. FINDINGS: Lower chest: Unremarkable. Liver: Enlarged with severe diffuse hepatic steatosis, these findings are unchanged. No focal lesion. Gallbladder and bile ducts: Unremarkable. No stones or inflammation. No biliary dilatation. Pancreas: Unremarkable. No mass or inflammation. Spleen: Unremarkable. Normal in size. No masses. Adrenal glands: Unremarkable. No nodules. Kidneys: Unremarkable. No masses, stones, or hydronephrosis. GI tract: Unremarkable. Normal in caliber. No sign of mass or inflammation. Normal appendix. Vasculature: Unremarkable. Mesenteric arteries are patent. Lymph nodes: No lymphadenopathy. Omentum/Peritoneum/Abdominal Wall: Unremarkable. No sign of mass or infiltration. No free air or significant free fluid. Pelvis: Unremarkable. Bones: Unremarkable for age. IMPRESSION: 1. No changes from the prior exam. 2. No acute or specific finding to explain epigastric abdomen pain. 3. Stable hepatomegaly and severe hepatic steatosis. Please note that all CT scans at this facility use dose modulation, iterative reconstruction, and/or weight-based dosing when appropriate to reduce radiation dose to as low as reasonably achievable. Dictated by Jayson Coley MD @ Sep 17 2020 11:38AM Signed by Dr. Jayson Coley @ Sep 17 2020 11:52AM
== END 2020-09-17 14:59 | disposition home or self-care (01) ==
LOC: MW.ED 08:35
DX: U07.1 COVID-19 (principal); E87.6 Hypokalemia; E80.6 Other disorders of bilirubin metabolism; R79.89 Other specified abnormal findings of blood chemistry; K21.9 Gastro-esophageal reflux disease without esophagitis; Z79.899 Other long term (current) drug therapy; Z88.5 Allergy status to narcotic agent
CPT/HCPCS: 36415; 74177; 80053; 80307; 83690; 84484; 84703; 85025; 87635; 93005; 96365; 96366; 96375; 96376; 99284; A9270; J2405; J3010; J3475; J3490; J7120; 93010; 99285; U0002

== ENCOUNTER 2020-09-19 14:38 | Emergency (ER) | payer BC ==
[2020-09-19] MEDS ORDERED: Sodium Chloride 0.9% 1,000 ML IV ONE (15:17)
[2020-09-19] MEDS ORDERED: Ibuprofen 400 MG Tab PO ONE (15:17)
--- NOTE | 2020-09-19 15:29 | PCM.SN.2 ---
- Free Text/Narrative Note: EKG Time 320pm Rate 90 NSR no LAN
--- NOTE | 2020-09-19 15:55 | CR ---
INDICATION: pain/SOB. 1 image sent. TECHNIQUE: Chest 1 view. COMPARISON: None. FINDINGS: Cardiovascular and mediastinum: Heart size and vasculature are normal in caliber and appearance. Mediastinum is within normal limits. Lungs and pleural space: Lungs are clear. No sign of infiltrate or mass. No sign of pleural effusion. No pneumothorax. Bones and soft tissues: No significant findings. IMPRESSION: Unremarkable chest. Dictated by: Garrett Edwards MD @ 09/19/2020 15:53:01 (Electronically Signed)
[2020-09-19 16:22] LABS: CARBON DIOXIDE,CO2 30.1 mmol/L (21.0-32.0); POTASSIUM,K 2.8 mmol/L (3.5-5.1)
[2020-09-19] MEDS ORDERED: Potassium Chloride 20 MEQ Tab.ER PO ONE (16:45)
--- NOTE | 2020-09-19 16:47 | EDM.PDOC ---
ED HPI GENERAL MEDICAL PROBLEM - General Chief Complaint: Respiratory Problem Stated Complaint: TROUBLE BREATHING,CHEST PAIN Time Seen by Provider: 09/19/20 14:39 Source of Information: Reports: Patient History Limitations: Reports: No Limitations - History of Present Illness INITIAL COMMENTS - FREE TEXT/NARRATIVE: HISTORY AND PHYSICAL: History of present illness: Patient is a 35-year-old female, who was diagnosed with COVID-19 2 days ago on 09/17/2020, who presents to the ED today with concern of generalized body aches, nausea, fatigue, and cough. Patient states that she was seen in the emergency room 2 days ago and was diagnosed with COVID-19. Patient states she is here today because she feels "too tired and rundown "and thought this was atypical of her Covid 19 diagnosis but states she does not feel worse than her evaluation 2 days ago in the ER but does express some improvement of symptoms. Patient states that she is in the process of being evaluated for new alcoholic liver disease and follows with a family practice physician but has not been formally evaluated by GI or a apartment rental clerk. Patient states that she has had abnormal liver function tests which is being further looked into by her primary care provider within the past 1 month. Patient denies any other symptoms or concerns. Patient denies fever, chills, chest pain, shortness of breath. Denies headache, neck stiff ness, change in vision, syncope, or near syncope. Denies vomiting, abdominal pain, diarrhea, constipation, or dysuria. Has not noted any blood in urine or stool. Patient has been eating and drinking appropriately. Review of systems: As per history of present illness and below otherwise all systems reviewed and negative. Past medical history: As per history of present illness and as reviewed below otherwise noncontributory. Surgical history: As per history of present illness and as reviewed below otherwise noncontributory. Social history: See social history for further information Family history: As per history of present illness and as reviewed below otherwise noncontributory. Physical exam: General: Patient is alert, oriented, and in no acute distress. Patient sitting comfortably on exam table. Vitals stable and reviewed by me along with nursing documentation. HEENT: Atraumatic, normocephalic, pupils equal and reactive bilaterally, negative for conjunctival pallor, slight scleral icterus, mucous membranes moist, TMs normal bilaterally, throat clear, neck supple, nontender, trachea midline. No drooling or trismus noted. No meningeal signs. No hot potato voice noted. Lungs: Patient speaking clearly without breathlessness, no wheezing or stridor, no accessory muscle use or respiratory distress. Auscultation deferred due to c fel[place] COV-ID 19 outbreak. Heart: Auscultation deferred due to current COV-ID 19 outbreak. Abdomen: Soft, nondistended, nontender. Negative for masses or hepatosplenomegaly. Negative for costovertebral tenderness. Pelvis: Stable nontender. Genitourinary: Deferred. Rectal: Deferred. Skin: Intact, warm, dry. No lesions or rashes noted. Extremities: Atraumatic, negative for cords or calf pain. Neurovascular unremarkable. Neuro: Awake, alert, oriented. Cranial nerves II through XII unremarkable. Cerebellum unremarkable. Motor and sensory unremarkable throughout. Exam nonfocal. Notes: Patient's vitals are stable, she is well-appearing and looks nontoxic on exam. Patient is hypokalemic but stable from prior labs 2 days ago during her ED visit. EKG does not show any U waves or evidence of severe hypokalemia, see Dr. Briseno's documentation for further EKG interpretation. Bilirubin as improved from prior labwork 2 days ago and patient does not complain of abdominal pain today. COVID19 2 days ago was positive and likely explains the cause of patients fatigue, cough, nausea, and generalized body aches. LFT's are stable from prior labwork with improving bilirubin. She is not hypoxic and vitals stable throughout stay in ED. Discussed the importance for follow up with her PCP in the next few days for repeat of her potassium and LFT's and need for further evaluation by GI/hepatology. Patient's symptoms improved with therapeutics in the ED today. Signs of that were prompt return to the ED thoroughly discussed with patient. Voices understanding and is agreeable to plan of care. Denies any further questions or concerns at this time. Diagnostics: EKG, CBC, CMP, Serum hcg, CXR, Trop Therapeutics: NS, Ibuprofen, Zofran, Potassium PO Prescription: None Impression: COVID-19 infection Transaminitis Hypokalemia Plan: 1. Your vital signs and oxygen saturation are well enough that you were able to monitor your symptoms at home. Continue to monitor for trouble breathing, new confusion or inability to arouse, bluish lips or face or any of the other symptoms we discussed -if this occurs please return to the emergency room.Continue to monitor your health at home for worsening symptoms so that you can be taken care of and treated quickly if needed. 2. Please self quarantine until 10 days have passed since your symptoms began AND you are fever free (<100.4 degrees fahrenheit) for 24 hours without the use of fever-reducing medications AND symptoms are improving. You should restrict activities outside of your home, except for getting medical care. Do not go to work, school, or public areas. Avoid using public transportation, ride-sharing, or taxis. 3. You may use ibuprofen as needed for pain and fever management. 4. For more specific guidelines regarding isolation/quarantine please visit this website. https://www.health.[place].gov/sites/www/files/documents/Files/BREANNA/coronavirus/Factsh eet_for_People_With_COVID-19.pdf Definitive disposition and diagnosis as appropriate pending reevaluation and review of above. chest Pain Score (Numeric/FACES): 10 generalized bodyaches Pain Score (Numeric/FACES): 10 - Related Data Allergies Allergy/AdvReac Type Severity Reaction Status Date / Time codeine Allergy Nausea and Verified 09/17/20 08:42 Vomiting Home Meds: Home Meds Omeprazole 20 mg PO DAILY 09/17/20 [History] Ondansetron [Zofran] 4 mg PO Q8H PRN #15 tab 09/17/20 [Rx] Potassium Chloride 40 meq PO DAILY 5 Days #10 packet 09/17/20 [Rx] Past Medical History HEENT History: Reports: None Respiratory History: Reports: Other (See Below) Other Respiratory History: pluerisy Gastrointestinal History: Reports: Other (See Below) Other Gastrointestinal History: heartburn Genitourinary History: Reports: Other (See Below) Other Genitourinary History: yeast infection during Musculoskeletal History: Reports: Back Pain, Chronic Other Musculoskeletal History: hx herniated disc in lower back Oncologic (Cancer) History: Reports: Cervix - Infectious Disease History Infectious Disease History: Reports: Chicken Pox, Influenza - Past Surgical History HEENT Surgical History: Reports: Oral Surgery Other HEENT Surgeries/Procedures: teeth removed at 26 years of age wears dentures Respiratory Surgical History: Reports: None GI Surgical History: Reports: None Female Surgical History: Reports: None Musculoskeletal Surgical History: Reports: None Oncologic Surgical History: Reports: Other (See Below) Other Oncologic Surgeries/Procedures: LEEP Social & Family History - Family History Family Medical History: No Pertinent Family History HEENT: Reports: Cataract, Glaucoma, Impaired Vision Cardiac: Reports: CAD, High Cholesterol, Hypertension GI: Reports: Cholelithiasis, Hepatitis OBGYN: Reports: Endometriosis Musculoskeletal: Reports: Arthritis, Back pain, Chronic, Neck Pain, Chronic, Osteoarthritis, RA Neurological: Reports: Alzheimers Disease, Dementia, Parkinson's Psychiatric: Reports: ADD, ADHD, Anxiety, Depression, Emotional Problems, Learning Disability, Mood Swings, Panic Attack Endocrine/Metabolic: Reports: Diabetes, type II, Hyperthyroidism Oncologic: Reports: Leukemia - Tobacco Use Tobacco Use Status *Q: Never Tobacco User Second Hand Smoke Exposure: No - Caffeine Use Caffeine Use: Reports: Coffee - Recreational Drug Use Recreational Drug Use: No ED ROS GENERAL - Review of Systems Review Of Systems: Comprehensive ROS is negative, except as noted in HPI. ED EXAM, GENERAL - Physical Exam Exam: See Below (see dictation) Course - Vital Signs Last Recorded V/S: Last Vital Signs Temp 97.6 F 09/19/20 14:47 Pulse 84 09/19/20 17:10 Resp 17 09/19/20 17:10 BP 114/63 09/19/20 17:10 Pulse Ox 100 09/19/20 17:10 - Orders/Labs/Meds Labs: Laboratory Tests 09/19/20 09/19/20 09/19/20 Range/Units 15:48 15:48 15:48 WBC 3.72 L (4.0-11.0) K/uL RBC 3.11 L (4.30-5.90) M/uL Hgb 12.3 (12.0-16.0) g/dL Hct 34.9 L (36.0-46.0) % MCV 112.2 H (80.0-98.0) fL MCH 39.5 H (27.0-32.0) pg MCHC 35.2 (31.0-37.0) g/dL RDW Std Deviation 56.6 (28.0-62.0) fl RDW Coeff of Blue 14 (11.0-15.0) % Plt Count 118 L (150-400) K/uL MPV 12.10 H (7.40-12.00) fL Neut % (Auto) 78.2 (48.0-80.0) % Lymph % (Auto) 10.5 L (16.0-40.0) % [place] % (Auto) 10.5 (0.0-15.0) % Eos % (Auto) 0.5 (0.0-7.0) % Baso % (Auto) 0.3 (0.0-1.5) % Neut # (Auto) 2.9 (1.4-5.7) K/uL Lymph # (Auto) 0.4 L (0.6-2.4) K/uL [place] # (Auto) 0.4 (0.0-0.8) K/uL Eos # (Auto) 0.0 (0.0-0.7) K/uL Baso # (Auto) 0.0 (0.0-0.1) K/uL Nucleated RBC % 0.0 /100WBC Nucleated RBCs # 0 K/uL Sodium 135 L (136-145) mmol/L Potassium 2.8 L (3.5-5.1) mmol/L Chloride 98 (98-107) mmol/L Carbon Dioxide 30.1 (21.0-32.0) mmol/L BUN 5 L (7.0-18.0) mg/dL Creatinine 1.1 H (0.6-1.0) mg/dL Est Cr Clr Drug Dosing 52.35 mL/min Estimated GFR (MDRD) 56.2 ml/min Glucose 110 H (74-106) mg/dL Calcium 8.3 L (8.5-10.1) mg/dL Total Bilirubin 4.7 H (0.2-1.0) mg/dL AST 287 H (15-37) IU/L ALT 132 H (14-63) IU/L Alkaline Phosphatase 150 H (46-116) U/L Troponin I (0.000-0.056) ng/mL Total Protein 5.5 L (6.4-8.2) g/dL Albumin 2.4 L (3.4-5.0) g/dL Globulin 3.1 (2.6-4.0) g/dL Albumin/Globulin Ratio 0.8 L (0.9-1.6) HCG, Qual NEGATIVE (NEG) 09/19/20 Range/Units 15:48 WBC (4.0-11.0) K/uL RBC (4.30-5.90) M/uL Hgb (12.0-16.0) g/dL Hct (36.0-46.0) % MCV (80.0-98.0) fL MCH (27.0-32.0) pg MCHC (31.0-37.0) g/dL RDW Std Deviation (28.0-62.0) fl RDW Coeff of Blue (11.0-15.0) % Plt Count (150-400) K/uL MPV (7.40-12.00) fL Neut % (Auto) (48.0-80.0) % Lymph % (Auto) (16.0-40.0) % [place] % (Auto) (0.0-15.0) % Eos % (Auto) (0.0-7.0) % Baso % (Auto) (0.0-1.5) % Neut # (Auto) (1.4-5.7) K/uL Lymph # (Auto) (0.6-2.4) K/uL [place] # (Auto) (0.0-0.8) K/uL Eos # (Auto) (0.0-0.7) K/uL Baso # (Auto) (0.0-0.1) K/uL Nucleated RBC % /100WBC Nucleated RBCs # K/uL Sodium (136-145) mmol/L Potassium (3.5-5.1) mmol/L Chloride (98-107) mmol/L Carbon Dioxide (21.0-32.0) mmol/L BUN (7.0-18.0) mg/dL Creatinine (0.6-1.0) mg/dL Est Cr Clr Drug Dosing mL/min Estimated GFR (MDRD) ml/min Glucose (74-106) mg/dL Calcium (8.5-10.1) mg/dL Total Bilirubin (0.2-1.0) mg/dL AST (15-37) IU/L ALT (14-63) IU/L Alkaline Phosphatase (46-116) U/L Troponin I < 0.050 (0.000-0.056) ng/mL Total Protein (6.4-8.2) g/dL Albumin (3.4-5.0) g/dL Globulin (2.6-4.0) g/dL Albumin/Globulin Ratio (0.9-1.6) HCG, Qual (NEG) Meds: Medications Discontinued Medications Generic Name Dose Route Start Last Admin Trade Name Freq PRN Reason Stop Dose Admin Sodium Chloride 1,000 mls @ 999 mls/hr 09/19/20 15:17 09/19/20 15:49 Normal Saline IV 09/19/20 16:17 999 mls/hr BOLUS ONE Administration Ibuprofen 600 mg 09/19/20 15:17 09/19/20 15:42 Motrin PO 09/19/20 15:18 600 mg ONETIME ONE Administration Potassium Chloride 40 meq 09/19/20 16:45 09/19/20 17:07 Klor-Con M20 PO 09/19/20 16:46 40 meq ONETIME ONE Administration Departure - Departure Time of Disposition: 16:46 Disposition: Home, Self-Care 01 Clinical Impression: COVID-19 virus infection, Hypokalemia, Transaminitis - Discharge Information Instructions: COVID-19 Frequently Asked Questions Referrals: Amber Goldsmith PHOTOGRAPHER APPRENTICE LITHOGRAPHIC [Primary Care Provider] - Forms: ED Department Discharge Additional Instructions: The following information is given to patients seen in the emergency department who are being discharged to home. This information is to outline your options for follow-up care. We provide all patients seen in our emergency department with a follow-up referral. The need for follow-up, as well as the timing and circumstances, are variable depending upon the specifics of your emergency department visit. If you don't have a primary care physician on staff, we will provide you with a referral. We always advise you to contact your personal physician following an emergency department visit to inform them of the circumstance of the visit and for follow-up with them and/or the need for any referrals to a consulting sp ecialist. The emergency department will also refer you to a specialist when appropriate. This referral assures that you have the opportunity for follow-up care with a specialist. All of these measure are taken in an effort to provide you with optimal care, which includes your follow-up. Under all circumstances we always encourage you to contact your private physician who remains a resource for coordinating your care. When calling for follow-up care, please make the office aware that this follow-up is from your recent emergency room visit. If for any reason you are refused follow-up, please contact the [facility] Emergency Department at and asked to speak to the emergency department charge nurse. [facility] [address] [place] [address] [id number] [facility] [address] [place] [address] 1. Your vital signs and oxygen saturation are well enough that you were able to monitor your symptoms at home. Continue to monitor for trouble breathing, new confusion or inability to arouse, bluish lips or face or any of the other symptoms we discussed -if this occurs please return to the emergency room.Continue to monitor your health at home for worsening symptoms so that you can be taken care of and treated quickly if needed. 2. Please self quarantine until 10 days have passed since your symptoms began AND you are fever free (<100.4 degrees fahrenheit) for 24 hours without the use of fever-reducing medications AND symptoms are improving. You should restrict activities outside of your home, except for getting medical care. Do not go to work, school, or public areas. Avoid using public transportation, ride-sharing, or taxis. 3. You may use ibuprofen as needed for pain and fever management. 4. For more specific guidelines regarding isolation/quarantine please visit this website. https://www.health.[place].gov/sites/www/files/documents/Files/BREANNA/coronavirus/Factsh eet_for_People_With_COVID-19.pdf Sepsis Event Note (ED) - Evaluation Sepsis Screening Result: No Definite Risk - Focused Exam Vital Signs: Vital Signs Temp Pulse Resp BP Pulse Ox 09/19/20 17:10 84 17 114/63 100 09/19/20 14:47 97.6 F 97 19 108/73 100
== END 2020-09-19 17:02 | disposition home or self-care (01) ==
LOC: MW.ED 14:38
DX: U07.1 COVID-19 (principal); E87.6 Hypokalemia; R74.01 Elevation of levels of liver transaminase levels; Z88.5 Allergy status to narcotic agent; Z79.899 Other long term (current) drug therapy
CPT/HCPCS: 36415; 71045; 80053; 84484; 84703; 85025; 93005; 99285; A9270; J7030; 93010; 99284

== ENCOUNTER 2020-10-05 13:47 | Observation (INO) | payer BC ==
[2020-10-05] MEDS ORDERED: Sodium Chloride 0.9% 1,000 ML IV ONE (14:12)
[2020-10-05 14:57] LABS: BLOOD UREA NITROGEN,BUN 6 mg/dL (7.0-18.0); CARBON DIOXIDE,CO2 27.8 mmol/L (21.0-32.0); CHLORIDE,CL 99 mmol/L (98-107); GLUCOSE RANDOM 89 mg/dL (74-106); LIPASE 137 U/L (73-393); SODIUM,NA 137 mmol/L (136-145)
[2020-10-05] MEDS ORDERED: Potassium Chloride 20 MEQ Tab.ER PO ONE (15:06)
--- NOTE | 2020-10-05 15:19 | US ---
INDICATION: Right upper quadrant abdominal pain and jaundice. TECHNIQUE: Ultrasound abdomen limited. Sonographic images of the right upper quadrant were obtained using bean-scale and color Doppler images. COMPARISON: CT abdomen and pelvis 09/17/2020. FINDINGS: Liver: The liver is enlarged measuring 21.3 cm in length. The liver parenchyma is diffusely echogenic consistent with hepatic steatosis. No masses. No intrahepatic biliary dilatation. The main portal vein demonstrates hepatopetal flow. Moderate ascites. Gallbladder: No stones or sludge. The gallbladder wall is upper limits of normal in thickness measuring 3 mm which is likely related to the presence of abdominal ascites. Negative sonographic Zepeda`s sign. Common bile duct: Normal in caliber measuring 2 mm. Pancreas: Not well seen due to overlying bowel gas. Right kidney: Measures 9.4 cm in length. Normal echotexture and cortex. No masses, stones, or hydronephrosis. Vasculature: Proximal abdominal aorta and IVC are normal. IMPRESSION: 1. Hepatomegaly and hepatic steatosis. 2. Moderate ascites new from the prior CT. Dictated by Grace Palma MD @ Oct 05 2020 3:08PM Signed by Dr. Grace Palma @ Oct 05 2020 3:18PM
[2020-10-05] MEDS ORDERED: Iopamidol 755 MG/ML 500 ML Multipack Bottle IVPUSH ONE ×2 (15:38→15:40)
--- NOTE | 2020-10-05 16:05 | CT ---
INDICATION : Abdominal pain. Abdominal distension. TECHNIQUE : CT Scan of the abdomen and pelvis. 56 cc of Isovue IV COMPARISON : CT scans of the abdomen and pelvis September 17, 2020 and August 19, 2020. FINDINGS: Lung bases: Clear. Liver: Markedly decreased attenuation with no mass. No portal vein thrombus. Gallbladder: No calcified stones. Spleen: Unremarkable. Pancreas: Unremarkable. Adrenal glands: Unremarkable. Kidneys: Unremarkable.No hydronephrosis. GI tract: There is extensive wall thickening and mucosal enhancement involving the entire colon. Gastric mucosa is also diffuse enhancing nonspecific. Aorta and retroperitoneum: Aorta is normal in caliber. Lymph nodes: No pathologic retroperitoneal, mesenteric, or pelvic lymph node enlargement. Urinary bladder: Unremarkable. Pelvis: Pelvic ascites. Unremarkable appearance of the uterus and ovaries. Miscellaneous abdomen:There is a large amount of abdominal ascites. Fluid is present in the 4 quadrants. Large amount of fluid in the upper pelvis. Skeletal:No suspicious lesions. IMPRESSION: 1. Pancolitis. This could be seen with infection or ulcerative colitis. The colitis shows worsening since the previous study. 2. Abnormal low dense liver. This is stable from the prior exam. Correlate with liver function studies. Suspect parenchymal liver disease. Correlate with history of alcohol use. This could be seen with steatohepatitis from nonalcoholic fatty liver disease or alcoholic hepatitis. 3. Significant development of ascites which could be from increased hepatic dysfunction. Please note that all CT scans at this facility use dose modulation, iterative reconstruction, and/or weight-based dosing when appropriate to reduce radiation dose to as low as reasonably achievable. Dictated by Jc Dyer MD @ Oct 05 2020 3:56PM Signed by Dr. Jc Dyer @ Oct 05 2020 4:04PM
--- NOTE | 2020-10-05 16:12 | PCM.SN.2 ---
- Free Text/Narrative Note: EKG normal sinus rhythm heart rate 98 [place] 79 [place] 137 QT 456 Q waves in V1 and V2 and nonspecific ST changes. This is compared to 09/19/2020 and the Q waves were persistent at that time through V3 which is likely lead placement. The rest of the changes are not new. Impression no obvious injury
[2020-10-05] MEDS ORDERED: HYDROmorphone 1 MG/ML Syringe IVPUSH ONE (16:45)
[2020-10-05] MEDS ORDERED: LORazepam 2 MG/ML SDV IVPUSH ONE (16:45)
[2020-10-05] MEDS ORDERED: Ondansetron 4 MG/2 ML SDV IVPUSH ONE (16:46)
[2020-10-05] MEDS ORDERED: Piperacillin/Tazobactam 4.5 GM in Sodium Chloride 0.9% 100 ML IV ONE (16:47)
--- NOTE | 2020-10-05 17:10 | EDM.PDOC ---
ED HPI GENERAL MEDICAL PROBLEM - General Chief Complaint: Abdominal Pain Stated Complaint: SWOLLEN ABDOMINEN/PAIN Time Seen by Provider: 10/05/20 13:53 Source of Information: Reports: Patient History Limitations: Reports: No Limitations - History of Present Illness INITIAL COMMENTS - FREE TEXT/NARRATIVE: HISTORY AND PHYSICAL: History of present illness: Is a 35-year-old female who presents to the ED today with concern of abdominal distention, increased hardness/firmness of her abdomen, and generalized abdominal pain that is worse on the right upper quadrant but states it is also "all over ". Patient states that she has been having symptoms for the last 2 to 3 days. Patient states that she used to have an issue with chronic alcoholism and "has liver issues "which have not been fully evaluated but is in the process of getting this figured out. Patient states that she stopped drinking in July. Patient states on Tuesday, it was her and her 's anniversary so she had "only 1 "alcoholic beverage that night. Patient states when she woke up the following morning, she began having abdominal distention, firmness, and generalized abdominal pain that is slightly worse on the right. Patient states that her belly "now looks like it did when she was ". Patient states that she has not had any drinks of alcohol since Tuesday and only had the one drink and has not had any since. Patient states that she has had a tubal ligation but denies any other abdominal surgeries. Patient states that she has had chills and has been shaking off and on but has not had a fever at home. Patient denies fever, chest pain, shortness of breath, or cough. Denies headache, neck stiff ness, change in vision, syncope, or near syncope. Denies nausea, vomiting, diarrhea, constipation, or dysuria. Has not noted any blood in urine or stool. Patient has been eating and drinking appropriately. Review of systems: As per history of present illness and below otherwise all systems reviewed and negative. Past medical history: As per history of present illness and as reviewed below otherwise noncontributory. Surgical history: As per history of present illness and as reviewed below otherwise noncontributory. Social history: See social history for further information Family history: As per history of present illness and as reviewed below otherwise noncontrib utory. Physical exam: General: Patient is alert, oriented, and in no acute distress. Patient laying comfortably on exam table. HEENT: Atraumatic, normocephalic, pupils equal and reactive bilaterally, negative for conjunctival pallor or scleral icterus, mucous membranes moist, TMs normal bilaterally, throat clear, neck supple, nontender, trachea midline. No drooling or trismus noted. No meningeal signs. No hot potato voice noted. Lungs: Clear to auscultation, breath sounds equal bilaterally, chest nontender. Heart: S1S2, regular rate and rhythm without overt murmur Abdomen: Abdomen is distended and tender diffusely; worse in the RUQ. Possible hepatomegaly but exam of abdomen limited due to pain. Negative for masses or splenomegaly. Negative for costovertebral tenderness. Pelvis: Stable nontender. Genitourinary: Deferred. Rectal: Deferred. Skin: Intact, warm, dry. No lesions or rashes noted. Extremities: Atraumatic, negative for cords or calf pain. Neurovascular unremarkable. Neuro: Awake, alert, oriented. Cranial nerves II through XII unremarkable. Cerebellum unremarkable. Motor and sensory unremarkable throughout. Exam nonfocal. Notes: Dr. Finney directly involved in patient care. Patient's bilirubin, AST, ALT, and alk phos are elevated today but are relevantly similar/the same to past labwork. Ultrasound of the right upper quadrant shows hepatomegaly with hepatic steatosis. Moderate ascites from prior CT. Abdominal pelvic CT shows pancolitis. The colitis shows worsening since prior study. Abnormal low-density liver. This is stable from prior. Correlate with history of alcohol use or suspect parenchymal liver disease. Hepatohepatitis versus alcoholic hepatitis. Significant development of ascites which could be from increased hepatic dysfunction. Diagnostic paracentesis to r/o SBP performed along with Dr. Finney. See procedure note below. Dr. Jackson consulted on patient and will admit to observation telemetry. Voices understanding and is agreeable to plan of care. Denies any further questions or concerns at this time. Diagnostics: EKC, CBC. CMP, UA, Lipase, Ammonia, Pt/INR, RUQ US, Abd/pelvic CT scan w cont, diagnostic paracentesis Therapeutics: NS, Dilaudid, Ativan, Lidocaine, Zosyn, Potassium Impression: Pancolitis Hepatitis Ascites Hypokalemia Plan: Admission to observation telemetry to Dr. Jackson Definitive disposition and diagnosis as appropriate pending reevaluation and review of above. Abdomen Pain Score (Numeric/FACES): 7 - Related Data Allergies Allergy/AdvReac Type Severity Reaction Status Date / Time codeine Allergy Mild Nausea and Verified 10/06/20 05:08 Vomiting Home Meds: Home Meds Magnesium 30 mg PO DAILY 10/05/20 [History] Zinc 50 mg PO DAILY 10/05/20 [History] Mirtazapine 15 mg PO BEDTIME 10/06/20 [History] Omeprazole 20 mg PO ACBREAKFAST 10/06/20 [History] traMADol [Ultram] 50 mg PO TID PRN 10/06/20 [History] Past Medical History HEENT History: Reports: None Other HEENT History: Yellow sclera Respiratory History: Reports: Other (See Below) Other Respiratory History: pluerisy Gastrointestinal History: Reports: Other (See Below) Other Gastrointestinal History: heartburn Genitourinary History: Reports: Other (See Below) Other Genitourinary History: yeast infection during Musculoskeletal History: Reports: Back Pain, Chronic Other Musculoskeletal History: hx herniated disc in lower back Oncologic (Cancer) History: Reports: Cervix - Infectious Disease History Infectious Disease History: Reports: Chicken Pox, Influenza, Novel Coronavirus - Past Surgical History HEENT Surgical History: Reports: Oral Surgery Other HEENT Surgeries/Procedures: teeth removed at 26 years of age wears dentures Respiratory Surgical History: Reports: None GI Surgical History: Reports: None Female Surgical History: Reports: None Musculoskeletal Surgical History: Reports: None Oncologic Surgical History: Reports: Other (See Below) Other Oncologic Surgeries/Procedures: LEEP Social & Family History - Family History Family Medical History: No Pertinent Family History HEENT: Reports: Cataract, Glaucoma, Impaired Vision Cardiac: Reports: CAD, High Cholesterol, Hypertension GI: Reports: Cholelithiasis, Hepatitis OBGYN: Reports: Endometriosis Musculoskeletal: Reports: Arthritis, Back pain, Chronic, Neck Pain, Chronic, Osteoarthritis, RA Neurological: Reports: Alzheimers Disease, Dementia, Parkinson's Psychiatric: Reports: ADD, ADHD, Anxiety, Depression, Emotional Problems, Learning Disability, Mood Swings, Panic Attack Endocrine/Metabolic: Reports: Diabetes, type II, Hyperthyroidism Oncologic: Reports: Leukemia - Tobacco Use Tobacco Use Status *Q: Current Some Day Tobacco User Years of Tobacco use: 16 Packs/Tins Daily: 0.2 - Caffeine Use Caffeine Use: Reports: Coffee, Energy Drinks - Recreational Drug Use Recreational Drug Use: No ED ROS GENERAL - Review of Systems Review Of Systems: Comprehensive ROS is negative, except as noted in HPI. ED EXAM, GENERAL - Physical Exam Exam: See Below (see dictation) Course - Vital Signs Last Recorded V/S: Last Vital Signs Temp 96.9 F 10/08/20 07:30 Pulse 95 10/08/20 07:30 Resp 16 10/08/20 04:00 BP 95/65 10/08/20 07:30 Pulse Ox 98 10/08/20 07:30 - Orders/Labs/Meds Orders: Medication Orders Albuterol/Ipratropium (Duoneb 3.0-0.5 Mg/3 Ml) 3 ml NEB Q4HRRT PRN PRN Reason: Shortness Of Breath/wheezing Docusate Sodium (Colace) 100 mg PO BID PRN PRN Reason: Constipation Last Admin: 10/07/20 23:52 Dose: 100 mg Documented by: Admin: 10/07/20 09:28 Dose: 100 mg Documented by: TAVO Cosigned by: LINDA Folic Acid (Folic Acid) 1 mg PO DAILY [facility] Last Admin: 10/08/20 09:02 Dose: 1 mg Documented by: Admin: 10/07/20 09:28 Dose: 1 mg Documented by: TAVO Cosigned by: LINDA Admin: 10/06/20 08:23 Dose: 1 mg Documented by: BRADY Heparin Sodium (Porcine) (Heparin Sodium) 5,000 units SUBCUT Q8H [facility] Last Admin: 10/08/20 06:10 Dose: 5,000 units Documented by: Admin: 10/07/20 20:48 Dose: 5,000 units Documented by: Admin: 10/07/20 13:52 Dose: 5,000 units Documented by: Admin: 10/07/20 04:46 Dose: 5,000 units Documented by: Admin: 10/06/20 21:20 Dose: 5,000 units Documented by: Admin: 10/06/20 14:54 Dose: 5,000 units Documented by: Admin: 10/06/20 04:51 Dose: 5,000 units Documented by: GISSEL Hydromorphone HCl (Dilaudid) 1 mg IVPUSH Q4H PRN PRN Reason: Pain Last Admin: 10/08/20 11:51 Dose: 1 mg Documented by: Admin: 10/08/20 06:34 Dose: 1 mg Documented by: Admin: 10/07/20 23:40 Dose: 1 mg Documented by: Admin: 10/07/20 19:00 Dose: 1 mg Documented by: Admin: 10/07/20 14:16 Dose: 1 mg Documented by: Admin: 10/07/20 09:52 Dose: 1 mg Documented by: TAVO Cosigned by: LINDA Admin: 10/07/20 04:53 Dose: 1 mg Documented by: Admin: 10/06/20 23:43 Dose: 1 mg Documented by: Admin: 10/06/20 17:47 Dose: 1 mg Documented by: Admin: 10/06/20 12:58 Dose: 1 mg Documented by: Admin: 10/06/20 08:22 Dose: 1 mg Documented by: Admin: 10/06/20 04:51 Dose: 1 mg Documented by: Admin: 10/05/20 23:43 Dose: 1 mg Documented by: GISSEL Piperacillin Sod/Tazobactam (Sod 4.5 gm/ Sodium Chloride) 100 mls @ 100 mls/hr IV Q8H [facility] Last Admin: 10/08/20 09:04 Dose: 100 mls/hr Documented by: Infusion: 10/08/20 00:34 Dose: 100 mls/hr Documented by: Admin: 10/07/20 23:34 Dose: 100 mls/hr Documented by: Infusion: 10/07/20 17:14 Dose: 100 mls/hr Documented by: Admin: 10/07/20 16:14 Dose: 100 mls/hr Documented by: Infusion: 10/07/20 08:55 Dose: 100 mls/hr Documented by: Admin: 10/07/20 07:55 Dose: 100 mls/hr Documented by: TAVO Cosigned by: LINDA Infusion: 10/07/20 00:31 Dose: 100 mls/hr Documented by: TAVO Cosigned by: LINDA Admin: 10/06/20 23:31 Dose: 100 mls/hr Documented by: Infusion: 10/06/20 17:59 Dose: 100 mls/hr Documented by: Admin: 10/06/20 16:59 Dose: 100 mls/hr Documented by: Infusion: 10/06/20 09:18 Dose: 100 mls/hr Documented by: Admin: 10/06/20 08:18 Dose: 100 mls/hr Documented by: Infusion: 10/06/20 00:49 Dose: 100 mls/hr Documented by: Admin: 10/05/20 23:49 Dose: 100 mls/hr Documented by: GISSEL Pantoprazole Sodium 40 mg/ (Sodium Chloride) 10 mls @ 300 mls/hr IV DAILY DENISE Last Admin: 10/08/20 09:03 Dose: 300 mls/hr Documented by: Infusion: 10/07/20 09:30 Dose: 300 mls/hr Documented by: Admin: 10/07/20 09:28 Dose: 300 mls/hr Documented by: TAVO Cosigned by: LINDA Infusion: 10/06/20 08:23 Dose: 300 mls/hr Documented by: TAVO Cosigned by: LINDA Admin: 10/06/20 08:21 Dose: 300 mls/hr Documented by: BRADY Ibuprofen (Motrin) 200 mg PO Q8H PRN PRN Reason: Headache/Pain Ondansetron HCl (Zofran) 4 mg IVPUSH Q4H PRN PRN Reason: Nausea/Vomiting Last Admin: 10/08/20 11:50 Dose: 4 mg Documented by: Admin: 10/08/20 06:11 Dose: 4 mg Documented by: Admin: 10/07/20 23:28 Dose: 4 mg Documented by: Admin: 10/07/20 18:46 Dose: 4 mg Documented by: Admin: 10/07/20 13:52 Dose: 4 mg Documented by: Admin: 10/07/20 09:28 Dose: 4 mg Documented by: TAVO Cosigned by: LINDA Admin: 10/07/20 04:38 Dose: 4 mg Documented by: Admin: 10/06/20 23:26 Dose: 4 mg Documented by: Admin: 10/06/20 16:59 Dose: 4 mg Documented by: Admin: 10/06/20 11:51 Dose: 4 mg Documented by: Admin: 10/06/20 08:23 Dose: 4 mg Documented by: Admin: 10/06/20 04:51 Dose: 4 mg Documented by: Admin: 10/05/20 23:43 Dose: 4 mg Documented by: GISSEL Thiamine HCl (Vitamin B-1) 100 mg PO BEDTIME DENISE Last Admin: 10/07/20 20:50 Dose: 100 mg Documented by: Admin: 10/06/20 20:26 Dose: 100 mg Documented by: Admin: 10/05/20 21:46 Dose: 100 mg Documented by: GISSEL Labs: Laboratory Tests 10/05/20 10/05/20 10/05/20 Range/Units 14:25 14:25 14:25 WBC 9.10 (4.0-11.0) K/uL RBC 2.88 L (4.30-5.90) M/uL Hgb 11.2 L (12.0-16.0) g/dL Hct 33.1 L (36.0-46.0) % MCV 114.9 H (80.0-98.0) fL MCH 38.9 H (27.0-32.0) pg MCHC 33.8 (31.0-37.0) g/dL RDW Std Deviation 56.4 (28.0-62.0) fl RDW Coeff of Blue 14 (11.0-15.0) % Plt Count 220 (150-400) K/uL MPV 11.60 (7.40-12.00) fL Neut % (Auto) 81.5 H (48.0-80.0) % Lymph % (Auto) 11.5 L (16.0-40.0) % [place] % (Auto) 6.5 (0.0-15.0) % Eos % (Auto) 0.3 (0.0-7.0) % Baso % (Auto) 0.2 (0.0-1.5) % Neut # (Auto) 7.4 H (1.4-5.7) K/uL Lymph # (Auto) 1.1 (0.6-2.4) K/uL [place] # (Auto) 0.6 (0.0-0.8) K/uL Eos # (Auto) 0.0 (0.0-0.7) K/uL Baso # (Auto) 0.0 (0.0-0.1) K/uL Nucleated RBC % 0.0 /100WBC Nucleated RBCs # 0 K/uL INR 1.31 Sodium 137 (136-145) mmol/L Potassium 3.0 L (3.5-5.1) mmol/L Chloride 99 (98-107) mmol/L Carbon Dioxide 27.8 (21.0-32.0) mmol/L BUN 6 L (7.0-18.0) mg/dL Creatinine 1.0 (0.6-1.0) mg/dL Est Cr Clr Drug Dosing 57.21 mL/min Estimated GFR (MDRD) > 60.0 ml/min Glucose 89 (74-106) mg/dL Calcium 8.4 L (8.5-10.1) mg/dL Total Bilirubin 5.8 H (0.2-1.0) mg/dL AST 197 H (15-37) IU/L ALT 124 H (14-63) IU/L Alkaline Phosphatase 190 H (46-116) U/L Ammonia (19-54) ug/dL Lactate Dehydrogenase (81-234) U/L Total Protein 5.6 L (6.4-8.2) g/dL Albumin 2.4 L (3.4-5.0) g/dL Globulin 3.2 (2.6-4.0) g/dL Albumin/Globulin Ratio 0.8 L (0.9-1.6) Lipase 137 (73-393) U/L Urine Color Urine Appearance Urine pH (5.0-8.0) Ur Specific Compton (1.001-1.035) Urine Protein (NEGATIVE) mg/dL Urine Glucose (UA) (NEGATIVE) mg/dL Urine Ketones (NEGATIVE) mg/dL Urine Occult Blood (NEGATIVE) Urine Nitrite (NEGATIVE) Urine Bilirubin (NEGATIVE) Urine Ictotest Urine Urobilinogen (<2.0) EU/dL Ur Leukocyte Esterase (NEGATIVE) Urine RBC (0-2/HPF) Urine WBC (0-5/HPF) Ur Epithelial Cells (NONE-FEW) Urine Bacteria (NEGATIVE) Urine Mucus (NONE-MOD) Fluid Type Fluid Color Fluid Appearance Fluid WBC /uL Fluid RBC /uL Fluid Mononuclear Cell % Fl Polymorphonucl Cell % Fluid Glucose mg/dL Fluid Total Protein g/dL Fluid Albumin g/dL Fluid LDH U/L 10/05/20 10/05/20 10/05/20 Range/Units 14:25 14:25 14:36 WBC (4.0-11.0) K/uL RBC (4.30-5.90) M/uL Hgb (12.0-16.0) g/dL Hct (36.0-46.0) % MCV (80.0-98.0) fL MCH (27.0-32.0) pg MCHC (31.0-37.0) g/dL RDW Std Deviation (28.0-62.0) fl RDW Coeff of Blue (11.0-15.0) % Plt Count (150-400) K/uL MPV (7.40-12.00) fL Neut % (Auto) (48.0-80.0) % Lymph % (Auto) (16.0-40.0) % [place] % (Auto) (0.0-15.0) % Eos % (Auto) (0.0-7.0) % Baso % (Auto) (0.0-1.5) % Neut # (Auto) (1.4-5.7) K/uL Lymph # (Auto) (0.6-2.4) K/uL [place] # (Auto) (0.0-0.8) K/uL Eos # (Auto) (0.0-0.7) K/uL Baso # (Auto) (0.0-0.1) K/uL Nucleated RBC % /100WBC Nucleated RBCs # K/uL INR Sodium (136-145) mmol/L Potassium (3.5-5.1) mmol/L Chloride (98-107) mmol/L Carbon Dioxide (21.0-32.0) mmol/L BUN (7.0-18.0) mg/dL Creatinine (0.6-1.0) mg/dL Est Cr Clr Drug Dosing mL/min Estimated GFR (MDRD) ml/min Glucose (74-106) mg/dL Calcium (8.5-10.1) mg/dL Total Bilirubin (0.2-1.0) mg/dL AST (15-37) IU/L ALT (14-63) IU/L Alkaline Phosphatase (46-116) U/L Ammonia 21 (19-54) ug/dL Lactate Dehydrogenase 382 H (81-234) U/L Total Protein (6.4-8.2) g/dL Albumin (3.4-5.0) g/dL Globulin (2.6-4.0) g/dL Albumin/Globulin Ratio (0.9-1.6) Lipase (73-393) U/L Urine Color DARK YELLOW Urine Appearance SLT CLOUDY Urine pH 6.5 (5.0-8.0) Ur Specific Compton 1.025 (1.001-1.035) Urine Protein NEGATIVE (NEGATIVE) mg/dL Urine Glucose (UA) NEGATIVE (NEGATIVE) mg/dL Urine Ketones TRACE H (NEGATIVE) mg/dL Urine Occult Blood NEGATIVE (NEGATIVE) Urine Nitrite POSITIVE H (NEGATIVE) Urine Bilirubin MODERATE H (NEGATIVE) Urine Ictotest POSITIVE Urine Urobilinogen 4.0 H (<2.0) EU/dL Ur Leukocyte Esterase NEGATIVE (NEGATIVE) Urine RBC 0-3 (0-2/HPF) Urine WBC 0-3 (0-5/HPF) Ur Epithelial Cells MODERATE (NONE-FEW) Urine Bacteria FEW (NEGATIVE) Urine Mucus LIGHT (NONE-MOD) Fluid Type Fluid Color Fluid Appearance Fluid WBC /uL Fluid RBC /uL Fluid Mononuclear Cell % Fl Polymorphonucl Cell % Fluid Glucose mg/dL Fluid Total Protein g/dL Fluid Albumin g/dL Fluid LDH U/L 10/05/20 10/05/20 10/05/20 Range/Units 18:20 18:20 18:20 WBC (4.0-11.0) K/uL RBC (4.30-5.90) M/uL Hgb (12.0-16.0) g/dL Hct (36.0-46.0) % MCV (80.0-98.0) fL MCH (27.0-32.0) pg MCHC (31.0-37.0) g/dL RDW Std Deviation (28.0-62.0) fl RDW Coeff of Blue (11.0-15.0) % Plt Count (150-400) K/uL MPV (7.40-12.00) fL Neut % (Auto) (48.0-80.0) % Lymph % (Auto) (16.0-40.0) % [place] % (Auto) (0.0-15.0) % Eos % (Auto) (0.0-7.0) % Baso % (Auto) (0.0-1.5) % Neut # (Auto) (1.4-5.7) K/uL Lymph # (Auto) (0.6-2.4) K/uL [place] # (Auto) (0.0-0.8) K/uL Eos # (Auto) (0.0-0.7) K/uL Baso # (Auto) (0.0-0.1) K/uL Nucleated RBC % /100WBC Nucleated RBCs # K/uL INR Sodium (136-145) mmol/L Potassium (3.5-5.1) mmol/L Chloride (98-107) mmol/L Carbon Dioxide (21.0-32.0) mmol/L BUN (7.0-18.0) mg/dL Creatinine (0.6-1.0) mg/dL Est Cr Clr Drug Dosing mL/min Estimated GFR (MDRD) ml/min Glucose (74-106) mg/dL Calcium (8.5-10.1) mg/dL Total Bilirubin (0.2-1.0) mg/dL AST (15-37) IU/L ALT (14-63) IU/L Alkaline Phosphatase (46-116) U/L Ammonia (19-54) ug/dL Lactate Dehydrogenase (81-234) U/L Total Protein (6.4-8.2) g/dL Albumin (3.4-5.0) g/dL Globulin (2.6-4.0) g/dL Albumin/Globulin Ratio (0.9-1.6) Lipase (73-393) U/L Urine Color Urine Appearance Urine pH (5.0-8.0) Ur Specific Compton (1.001-1.035) Urine Protein (NEGATIVE) mg/dL Urine Glucose (UA) (NEGATIVE) mg/dL Urine Ketones (NEGATIVE) mg/dL Urine Occult Blood (NEGATIVE) Urine Nitrite (NEGATIVE) Urine Bilirubin (NEGATIVE) Urine Ictotest Urine Urobilinogen (<2.0) EU/dL Ur Leukocyte Esterase (NEGATIVE) Urine RBC (0-2/HPF) Urine WBC (0-5/HPF) Ur Epithelial Cells (NONE-FEW) Urine Bacteria (NEGATIVE) Urine Mucus (NONE-MOD) Fluid Type PER PER PER Fluid Color YELLOW Fluid Appearance CLEAR Fluid WBC 33 /uL Fluid RBC < 3000 /uL Fluid Mononuclear Cell 88 % Fl Polymorphonucl Cell 12 % Fluid Glucose 94 mg/dL Fluid Total Protein <2.0 g/dL Fluid Albumin <0.6 g/dL Fluid LDH 44 U/L 10/05/20 Range/Units 19:53 WBC (4.0-11.0) K/uL RBC (4.30-5.90) M/uL Hgb (12.0-16.0) g/dL Hct (36.0-46.0) % MCV (80.0-98.0) fL MCH (27.0-32.0) pg MCHC (31.0-37.0) g/dL RDW Std Deviation (28.0-62.0) fl RDW Coeff of Blue (11.0-15.0) % Plt Count (150-400) K/uL MPV (7.40-12.00) fL Neut % (Auto) (48.0-80.0) % Lymph % (Auto) (16.0-40.0) % [place] % (Auto) (0.0-15.0) % Eos % (Auto) (0.0-7.0) % Baso % (Auto) (0.0-1.5) % Neut # (Auto) (1.4-5.7) K/uL Lymph # (Auto) (0.6-2.4) K/uL [place] # (Auto) (0.0-0.8) K/uL Eos # (Auto) (0.0-0.7) K/uL Baso # (Auto) (0.0-0.1) K/uL Nucleated RBC % /100WBC Nucleated RBCs # K/uL INR Sodium (136-145) mmol/L Potassium (3.5-5.1) mmol/L Chloride (98-107) mmol/L Carbon Dioxide (21.0-32.0) mmol/L BUN (7.0-18.0) mg/dL Creatinine (0.6-1.0) mg/dL Est Cr Clr Drug Dosing mL/min Estimated GFR (MDRD) ml/min Glucose (74-106) mg/dL Calcium (8.5-10.1) mg/dL Total Bilirubin (0.2-1.0) mg/dL AST (15-37) IU/L ALT (14-63) IU/L Alkaline Phosphatase (46-116) U/L Ammonia 64 H (19-54) ug/dL Lactate Dehydrogenase (81-234) U/L Total Protein (6.4-8.2) g/dL Albumin (3.4-5.0) g/dL Globulin (2.6-4.0) g/dL Albumin/Globulin Ratio (0.9-1.6) Lipase (73-393) U/L Urine Color Urine Appearance Urine pH (5.0-8.0) Ur Specific [place] (1.001-1.035) Urine Protein (NEGATIVE) mg/dL Urine Glucose (UA) (NEGATIVE) mg/dL Urine Ketones (NEGATIVE) mg/dL Urine Occult Blood (NEGATIVE) Urine Nitrite (NEGATIVE) Urine Bilirubin (NEGATIVE) Urine Ictotest Urine Urobilinogen (<2.0) EU/dL Ur Leukocyte Esterase (NEGATIVE) Urine RBC (0-2/HPF) Urine WBC (0-5/HPF) Ur Epithelial Cells (NONE-FEW) Urine Bacteria (NEGATIVE) Urine Mucus (NONE-MOD) Fluid Type Fluid Color Fluid Appearance Fluid WBC /uL Fluid RBC /uL Fluid Mononuclear Cell % Fl Polymorphonucl Cell % Fluid Glucose mg/dL Fluid Total Protein g/dL Fluid Albumin g/dL Fluid LDH U/L Meds: Medications Generic Name Dose Route Start Last Admin Trade Name Freq PRN Reason Stop Dose Admin Albuterol/Ipratropium 3 ml 10/05/20 19:18 Duoneb 3.0-0.5 Mg/3 Ml NEB Q4HRRT PRN Shortness Of Breath/wheezing Docusate Sodium 100 mg 10/07/20 09:16 10/07/20 23:52 Colace PO 100 mg BID PRN Administration Constipation Folic Acid 1 mg 10/06/20 09:00 10/08/20 09:02 Folic Acid PO 1 mg DAILY DENISE Administration Heparin Sodium (Porcine) 5,000 units 10/06/20 05:30 10/08/20 06:10 Heparin Sodium SUBCUT 5,000 units Q8H DENISE Administration Hydromorphone HCl 1 mg 10/05/20 21:45 10/08/20 11:51 Dilaudid IVPUSH 1 mg Q4H PRN Administration Pain Piperacillin Sod/Tazobactam 100 mls @ 100 mls/hr 10/06/20 00:00 10/08/20 09:04 Sod 4.5 gm/ Sodium Chloride IV 100 mls/hr Q8H DENISE Administration Pantoprazole Sodium 40 mg/ 10 mls @ 300 mls/hr 10/06/20 09:00 10/08/20 09:03 Sodium Chloride IV 300 mls/hr DAILY DENISE Administration Ibuprofen 200 mg 10/07/20 11:33 Motrin PO Q8H PRN Headache/Pain Ondansetron HCl 4 mg 10/05/20 21:45 10/08/20 11:50 Zofran IVPUSH 4 mg Q4H PRN Administration Nausea/Vomiting Thiamine HCl 100 mg 10/05/20 21:00 10/07/20 20:50 Vitamin B-1 PO 100 mg BEDTIME DENISE Administration Discontinued Medications Generic Name Dose Route Start Last Admin Trade Name Freq PRN Reason Stop Dose Admin [place] Butter/Phenylephrine 1 each 10/06/20 00:04 10/06/20 04:49 Preparation H Supp RECTAL 10/06/20 00:05 1 each ONETIME ONE Administration Furosemide 20 mg 10/06/20 00:10 10/06/20 00:50 Lasix PO 10/06/20 00:11 Not Given ONETIME ONE Heparin Sodium (Porcine) 5,000 units 10/05/20 19:30 10/05/20 21:46 Heparin Sodium SUBCUT 5,000 units Q8H DENISE Administration Hydromorphone HCl 1 mg 10/05/20 16:45 10/05/20 17:38 Dilaudid IVPUSH 10/05/20 16:46 1 mg ONETIME ONE Administration Sodium Chloride 1,000 mls @ 999 mls/hr 10/05/20 14:12 10/05/20 15:38 Normal Saline IV 10/05/20 15:12 999 mls/hr BOLUS ONE Administration Piperacillin Sod/Tazobactam 100 mls @ 100 mls/hr 10/05/20 16:47 10/05/20 17:26 Sod 4.5 gm/ Sodium Chloride IV 10/05/20 17:46 100 mls/hr ONETIME ONE Administration Magnesium Sulfate 2 gm in 50 mls @ 50 mls/hr 10/06/20 11:09 10/06/20 11:51 Magnesium Sulfate In Water Premix IV 10/06/20 12:08 50 mls/hr ONETIME ONE Administration Ibuprofen 400 mg 10/07/20 03:14 10/07/20 03:41 Motrin PO 10/07/20 03:15 400 mg ONETIME ONE Administration Ibuprofen 200 mg 10/07/20 09:14 10/07/20 09:52 Motrin PO 200 mg Q4H PRN Administration Headache/Pain Iopamidol 56 ml 10/05/20 15:40 10/05/20 15:40 Isovue Multipack-370 (76%) IVPUSH 10/05/20 15:41 56 ml ONETIME ONE Administration Lactulose 10 gm 10/05/20 21:21 10/05/20 21:45 Chronulac PO 10/05/20 21:22 10 gm ONETIME ONE Administration Lidocaine HCl 10 ml 10/05/20 15:36 10/05/20 17:46 Xylocaine-Mpf 1% INJECT 10/05/20 15:37 Not Given ONETIME ONE Lidocaine HCl 10 ml 10/05/20 16:06 10/05/20 17:46 Xylocaine-Mpf 1% INJECT 10/05/20 16:07 10 ml ONETIME ONE Administration Lorazepam 1 mg 10/05/20 16:45 10/05/20 17:38 Ativan IVPUSH 10/05/20 16:46 1 mg ONETIME ONE Administration Ondansetron HCl 4 mg 10/05/20 16:46 10/05/20 17:37 Zofran IVPUSH 10/05/20 16:47 4 mg ONETIME ONE Administration Pantoprazole Sodium 40 mg 10/06/20 07:30 Protonix PO ACBREAKFAST DENISE Potassium Chloride 40 meq 10/05/20 15:06 10/05/20 15:41 Klor-Con M20 PO 10/05/20 15:07 40 meq ONETIME ONE Administration Potassium Chloride 20 meq 10/06/20 14:00 10/07/20 13:52 Potassium Chloride PO 10/07/20 14:01 20 meq TID DENISE Administration Potassium Chloride 40 meq 10/07/20 20:40 10/08/20 09:43 Klor-Con M20 PO 10/07/20 20:41 Not Given ONETIME ONE Potassium Chloride 40 meq 10/07/20 23:30 10/07/20 23:26 Klor-Con M20 PO 10/07/20 23:31 40 meq ONETIME ONE Administration Potassium Chloride 40 meq 10/08/20 08:11 10/08/20 09:03 Klor-Con M20 PO 10/08/20 08:12 40 meq ONETIME ONE Administration Spironolactone 50 mg 10/06/20 00:10 10/06/20 00:54 Aldactone PO 10/06/20 00:11 50 mg ONETIME ONE Administration Departure - Departure Time of Disposition: 19:32 Disposition: Refer to Observation Clinical Impression: Pancolitis, Hepatitis, Hypokalemia, Transaminitis Ascites Qualifiers: Ascites type: other type Qualified Code(s): R18.8 - Other ascites - Discharge Information Sepsis Event Note (ED) - Evaluation Sepsis Screening Result: No Definite Risk - Free Text/Narrative Note: Procedure: Diagnostic paracentesis Indication: Ascites with abdominal pain Procedure simplex operator: NYASIA Tracey and Rocky Finney MD Attending physician: Rocky Finney MD Ultrasound was used to binu location Consent: Consent was obtained from patient prior to the procedure. All indications, risks versus benefits, were thoroughly discussed and explained at length with patient. All questions were answered. Seizure summary: Ultrasound was used to binu location A timeout was performed. Hands were washed immediately prior to the procedure. I wore a mask with protective eyewear/shield, sterile gown and gloves were used throughout the entire procedure. The area was cleansed and draped in the usual sterile fashion with chlorhexidine scrub. Anesthesia was achieved with 1% lidocaine. To the left lower side of the abdomen was prepped and draped in a sterile fashion using chlorhexidine scrub. 1% lidocaine was used to numb the skin, soft tissue, and peritoneum. The paracentesis catheter was inserted and advanced with negative pressure until yellow/clear-colored fluid was aspirated. Approximately 20 mL of ascitic fluid was collected and sent to the lab for further analysis. The catheter was removed and there was not any fluid leaking. A Tegaderm sterile Band-Aid was applied over the puncture wound. Patient tolerated the procedure well without any immediate complications. Estimated blood loss 0.
[2020-10-05] MEDS ORDERED: Albuterol/Ipratropium 3.0-0.5 MG/3 ML Neb Soln NEB PRN (19:18)
--- NOTE | 2020-10-05 19:23 | PCM.HP.2 ---
H&P History of Present Illness - General Date of Service: 10/05/20 Admit Problem/Dx: Admission Diagnosis/Problem Admission Diagnosis/Problem Colitis - History of Present Illness Initial Comments - Free Text/Narative: This is a 35-year-old female with a past medical history of alcohol dependence and GERD, being worked up for new alcoholic liver disease presenting with with concern of increasing abdominal distention, and generalized abdominal pain which is more pronounced on the right upper quadrant. Patient states that she has been having symptoms for the last 2 to 3 days. Patient states that she has known liver issues due to her chronic alcohol use, for which she follows with her PCP, hasn't seen a GI/escrow representative yet because she was diagnosed with covid few weeks back. . Patient states that she stopped drinking in July but on Tuesday, it was her and her 's anniversary so she had "only 1 "alcoholic beverage that night and next AM her symptoms started. Patient states that she has not had any drinks of alcohol since Tuesday. Patient states that she has had chills and has been shaking off and on but has not had a fever at home. Denied chest pain, shortness of breath, hematemesis, bloody stools, dysuria, urinary frequency, SOB, cough. Abdomen Pain Score (Numeric/FACES): 7 - Related Data Allergies/Adverse Reactions: Allergies Allergy/AdvReac Type Severity Reaction Status Date / Time codeine Allergy Nausea and Verified 10/05/20 14:09 Vomiting Home Medications: Home Meds Magnesium 30 mg PO 10/05/20 [History] Zinc 50 mg PO 10/05/20 [History] Past Medical History HEENT History: Reports: None Other HEENT History: Yellow sclera Respiratory History: Reports: Other (See Below) Other Respiratory History: pluerisy Gastrointestinal History: Reports: Other (See Below) Other Gastrointestinal History: heartburn Genitourinary History: Reports: Other (See Below) Other Genitourinary History: yeast infection during Musculoskeletal History: Reports: Back Pain, Chronic Other Musculoskeletal History: hx herniated disc in lower back Oncologic (Cancer) History: Reports: Cervix - Infectious Disease History Infectious Disease History: Reports: Chicken Pox, Influenza, Novel Coronavirus - Past Surgical History HEENT Surgical History: Reports: Oral Surgery Other HEENT Surgeries/Procedures: teeth removed at 26 years of age wears dentures Respiratory Surgical History: Reports: None GI Surgical History: Reports: None Female Surgical History: Reports: None Musculoskeletal Surgical History: Reports: None Oncologic Surgical History: Reports: Other (See Below) Other Oncologic Surgeries/Procedures: LEEP Social & Family History - Family History Family Medical History: No Pertinent Family History HEENT: Reports: Cataract, Glaucoma, Impaired Vision Cardiac: Reports: CAD, High Cholesterol, Hypertension GI: Reports: Cholelithiasis, Hepatitis OBGYN: Reports: Endometriosis Musculoskeletal: Reports: Arthritis, Back pain, Chronic, Neck Pain, Chronic, Osteoarthritis, RA Neurological: Reports: Alzheimers Disease, Dementia, Parkinson's Psychiatric: Reports: ADD, ADHD, Anxiety, Depression, Emotional Problems, Learning Disability, Mood Swings, Panic Attack Endocrine/Metabolic: Reports: Diabetes, type II, Hyperthyroidism Oncologic: Reports: Leukemia - Tobacco Use Tobacco Use Status *Q: Current Some Day Tobacco User Years of Tobacco use: 16 Packs/Tins Daily: 0.2 - Caffeine Use Caffeine Use: Reports: Coffee, Energy Drinks - Recreational Drug Use Recreational Drug Use: No H&P Review of Systems - Review of Systems: Review Of Systems: See Below General: Reports: Chills, Weakness. Denies: Fever, Malaise, Fatigue Pulmonary: Denies: Shortness of Breath, Wheezing Cardiovascular: Denies: Chest Pain, Palpitations, Dyspnea on Exertion Gastrointestinal: Reports: Abdominal Pain, Anorexia, Distension. Denies: Black Stool, Bloody Stool, Constipation, Difficulty Swallowing, Hematemesis, Melena, Mucous in Stool Musculoskeletal: Denies: Neck Pain, Shoulder Pain, Arm Pain Skin: Denies: Cyanosis, Jaundice, Mottled, Pallor, Diaphoresis, Dryness Psychiatric: Denies: Confusion, Depression, Mood Lability, Agitation Neurological: Denies: Confusion, Dizziness, Headache, Numbness Exam - Exam Exam: See Below - Vital Signs Vital Signs: Last Vital Signs Temp 36.0 C L 10/05/20 14:01 Pulse 109 H 10/05/20 14:01 Resp 18 10/05/20 14: BP 110/80 10/05/20 14:01 Pulse Ox 98 10/05/20 14:01 Weight: 46.6 kg - Exam Quality Assessment: No: Supplemental Oxygen General: Alert, Oriented, Mild Distress Neck: Supple, Trachea Midline Lungs: Clear to Auscultation, Normal Respiratory Effort Cardiovascular: Regular Rate, Regular Rhythm GI/Abdominal Exam: Distended, Tender, Abnormal Bowel Sounds, Hepatomegaly. No: Splenomegaly Extremities: Normal Inspection, Normal Range of Motion, Non-Tender. No: Pedal Edema Skin: Warm Neuro Extensive - Mental Status: Alert, Oriented x3, Normal Mood/Affect, Normal Cognition, Memory Intact - Patient Data Lab Results Last 24 hrs: Laboratory Results - last 24 hr 10/05/20 10/05/20 10/05/20 Range/Units 14:25 14:25 14:25 WBC 9.10 (4.0-11.0) K/uL RBC 2.88 L (4.30-5.90) M/uL Hgb 11.2 L (12.0-16.0) g/dL Hct 33.1 L (36.0-46.0) % MCV 114.9 H (80.0-98.0) fL MCH 38.9 H (27.0-32.0) pg MCHC 33.8 (31.0-37.0) g/dL RDW Std Deviation 56.4 (28.0-62.0) fl RDW Coeff of Blue 14 (11.0-15.0) % Plt Count 220 (150-400) K/uL MPV 11.60 (7.40-12.00) fL Neut % (Auto) 81.5 H (48.0-80.0) % Lymph % (Auto) 11.5 L (16.0-40.0) % [place] % (Auto) 6.5 (0.0-15.0) % Eos % (Auto) 0.3 (0.0-7.0) % Baso % (Auto) 0.2 (0.0-1.5) % Neut # (Auto) 7.4 H (1.4-5.7) K/uL Lymph # (Auto) 1.1 (0.6-2.4) K/uL [place] # (Auto) 0.6 (0.0-0.8) K/uL Eos # (Auto) 0.0 (0.0-0.7) K/uL Baso # (Auto) 0.0 (0.0-0.1) K/uL Nucleated RBC % 0.0 /100WBC Nucleated RBCs # 0 K/uL INR 1.31 Sodium 137 (136-145) mmol/L Potassium 3.0 L (3.5-5.1) mmol/L Chloride 99 (98-107) mmol/L Carbon Dioxide 27.8 (21.0-32.0) mmol/L BUN 6 L (7.0-18.0) mg/dL Creatinine 1.0 (0.6-1.0) mg/dL Est Cr Clr Drug Dosing 57.21 mL/min Estimated GFR (MDRD) > 60.0 ml/min Glucose 89 (74-106) mg/dL Calcium 8.4 L (8.5-10.1) mg/dL Total Bilirubin 5.8 H (0.2-1.0) mg/dL AST 197 H (15-37) IU/L ALT 124 H (14-63) IU/L Alkaline Phosphatase 190 H (46-116) U/L Ammonia (19-54) ug/dL Lactate Dehydrogenase (81-234) U/L Total Protein 5.6 L (6.4-8.2) g/dL Albumin 2.4 L (3.4-5.0) g/dL Globulin 3.2 (2.6-4.0) g/dL Albumin/Globulin Ratio 0.8 L (0.9-1.6) Lipase 137 (73-393) U/L Urine Color Urine Appearance Urine pH (5.0-8.0) Ur Specific [place] (1.001-1.035) Urine Protein (NEGATIVE) mg/dL Urine Glucose (UA) (NEGATIVE) mg/dL Urine Ketones (NEGATIVE) mg/dL Urine Occult Blood (NEGATIVE) Urine Nitrite (NEGATIVE) Urine Bilirubin (NEGATIVE) Urine Ictotest Urine Urobilinogen (<2.0) EU/dL Ur Leukocyte Esterase (NEGATIVE) Urine RBC (0-2/HPF) Urine WBC (0-5/HPF) Ur Epithelial Cells (NONE-FEW) Urine Bacteria (NEGATIVE) Urine Mucus (NONE-MOD) Fluid Type Fluid Color Fluid Appearance Fluid WBC /uL Fluid RBC /uL Fluid Mononuclear Cell % Fl Polymorphonucl Cell % Fluid Glucose mg/dL Fluid Total Protein g/dL Fluid Albumin g/dL Fluid LDH U/L 10/05/20 10/05/20 10/05/20 Range/Units 14:25 14:25 14:36 WBC (4.0-11.0) K/uL RBC (4.30-5.90) M/uL Hgb (12.0-16.0) g/dL Hct (36.0-46.0) % MCV (80.0-98.0) fL MCH (27.0-32.0) pg MCHC (31.0-37.0) g/dL RDW Std Deviation (28.0-62.0) fl RDW Coeff of Blue (11.0-15.0) % Plt Count (150-400) K/uL MPV (7.40-12.00) fL Neut % (Auto) (48.0-80.0) % Lymph % (Auto) (16.0-40.0) % [place] % (Auto) (0.0-15.0) % Eos % (Auto) (0.0-7.0) % Baso % (Auto) (0.0-1.5) % Neut # (Auto) (1.4-5.7) K/uL Lymph # (Auto) (0.6-2.4) K/uL [place] # (Auto) (0.0-0.8) K/uL Eos # (Auto) (0.0-0.7) K/uL Baso # (Auto) (0.0-0.1) K/uL Nucleated RBC % /100WBC Nucleated RBCs # K/uL INR Sodium (136-145) mmol/L Potassium (3.5-5.1) mmol/L Chloride (98-107) mmol/L Carbon Dioxide (21.0-32.0) mmol/L BUN (7.0-18.0) mg/dL Creatinine (0.6-1.0) mg/dL Est Cr Clr Drug Dosing mL/min Estimated GFR (MDRD) ml/min Glucose (74-106) mg/dL Calcium (8.5-10.1) mg/dL Total Bilirubin (0.2-1.0) mg/dL AST (15-37) IU/L ALT (14-63) IU/L Alkaline Phosphatase (46-116) U/L Ammonia 21 (19-54) ug/dL Lactate Dehydrogenase 382 H (81-234) U/L Total Protein (6.4-8.2) g/dL Albumin (3.4-5.0) g/dL Globulin (2.6-4.0) g/dL Albumin/Globulin Ratio (0.9-1.6) Lipase (73-393) U/L Urine Color DARK YELLOW Urine Appearance SLT CLOUDY Urine pH 6.5 (5.0-8.0) Ur Specific [place] 1.025 (1.001-1.035) Urine Protein NEGATIVE (NEGATIVE) mg/dL Urine Glucose (UA) NEGATIVE (NEGATIVE) mg/dL Urine Ketones TRACE H (NEGATIVE) mg/dL Urine Occult Blood NEGATIVE (NEGATIVE) Urine Nitrite POSITIVE H (NEGATIVE) Urine Bilirubin MODERATE H (NEGATIVE) Urine Ictotest POSITIVE Urine Urobilinogen 4.0 H (<2.0) EU/dL Ur Leukocyte Esterase NEGATIVE (NEGATIVE) Urine RBC 0-3 (0-2/HPF) Urine WBC 0-3 (0-5/HPF) Ur Epithelial Cells MODERATE (NONE-FEW) Urine Bacteria FEW (NEGATIVE) Urine Mucus LIGHT (NONE-MOD) Fluid Type Fluid Color Fluid Appearance Fluid WBC /uL Fluid RBC /uL Fluid Mononuclear Cell % Fl Polymorphonucl Cell % Fluid Glucose mg/dL Fluid Total Protein g/dL Fluid Albumin g/dL Fluid LDH U/L 10/05/20 10/05/20 10/05/20 Range/Units 18:20 18:20 18:20 WBC (4.0-11.0) K/uL RBC (4.30-5.90) M/uL Hgb (12.0-16.0) g/dL Hct (36.0-46.0) % MCV (80.0-98.0) fL MCH (27.0-32.0) pg MCHC (31.0-37.0) g/dL RDW Std Deviation (28.0-62.0) fl RDW Coeff of Blue (11.0-15.0) % Plt Count (150-400) K/uL MPV (7.40-12.00) fL Neut % (Auto) (48.0-80.0) % Lymph % (Auto) (16.0-40.0) % [place] % (Auto) (0.0-15.0) % Eos % (Auto) (0.0-7.0) % Baso % (Auto) (0.0-1.5) % Neut # (Auto) (1.4-5.7) K/uL Lymph # (Auto) (0.6-2.4) K/uL [place] # (Auto) (0.0-0.8) K/uL Eos # (Auto) (0.0-0.7) K/uL Baso # (Auto) (0.0-0.1) K/uL Nucleated RBC % /100WBC Nucleated RBCs # K/uL INR Sodium (136-145) mmol/L Potassium (3.5-5.1) mmol/L Chloride (98-107) mmol/L Carbon Dioxide (21.0-32.0) mmol/L BUN (7.0-18.0) mg/dL Creatinine (0.6-1.0) mg/dL Est Cr Clr Drug Dosing mL/min Estimated GFR (MDRD) ml/min Glucose (74-106) mg/dL Calcium (8.5-10.1) mg/dL Total Bilirubin (0.2-1.0) mg/dL AST (15-37) IU/L ALT (14-63) IU/L Alkaline Phosphatase (46-116) U/L Ammonia (19-54) ug/dL Lactate Dehydrogenase (81-234) U/L Total Protein (6.4-8.2) g/dL Albumin (3.4-5.0) g/dL Globulin (2.6-4.0) g/dL Albumin/Globulin Ratio (0.9-1.6) Lipase (73-393) U/L Urine Color Urine Appearance Urine pH (5.0-8.0) Ur Specific [place] (1.001-1.035) Urine Protein (NEGATIVE) mg/dL Urine Glucose (UA) (NEGATIVE) mg/dL Urine Ketones (NEGATIVE) mg/dL Urine Occult Blood (NEGATIVE) Urine Nitrite (NEGATIVE) Urine Bilirubin (NEGATIVE) Urine Ictotest Urine Urobilinogen (<2.0) EU/dL Ur Leukocyte Esterase (NEGATIVE) Urine RBC (0-2/HPF) Urine WBC (0-5/HPF) Ur Epithelial Cells (NONE-FEW) Urine Bacteria (NEGATIVE) Urine Mucus (NONE-MOD) Fluid Type PER PER Fluid Color YELLOW Fluid Appearance CLEAR Fluid WBC 33 /uL Fluid RBC < 3000 /uL Fluid Mononuclear Cell 88 % Fl Polymorphonucl Cell 12 % Fluid Glucose 94 mg/dL Fluid Total Protein <2.0 g/dL Fluid Albumin <0.6 g/dL Fluid LDH 44 U/L Result Diagrams: 10/05/20 14:25 10/05/20 14:25 Donny Results Last 24 hrs: Microbiology 10/05/20 16:51 Anaerobic Blood Culture - Final Blood - Venous - Lab Draw 10/05/20 16:08 Anaerobic Blood Culture - Final Blood - Venous Sepsis Event Note - Evaluation Sepsis Screening Result: No Definite Risk - Focused Exam Vital Signs: Vital Signs Temp Pulse Resp BP Pulse Ox 10/05/20 14:01 36.0 C L 109 H 18 110/80 98 - Problem List (1) Ascites SNOMED Code(s): 178889788 ICD Code: R18.8 - OTHER ASCITES Status: Acute Current Visit: Yes Qualifiers: Ascites type: other type Qualified Code(s): R18.8 - Other ascites (2) Hepatitis SNOMED Code(s): 475162659 ICD Code: K75.9 - INFLAMMATORY LIVER DISEASE, UNSPECIFIED Status: Acute Current Visit: Yes (3) Hypokalemia SNOMED Code(s): 53017542 ICD Code: E87.6 - HYPOKALEMIA Status: Acute Current Visit: Yes (4) Pancolitis SNOMED Code(s): 010061252 ICD Code: K51.00 - ULCERATIVE (CHRONIC) PANCOLITIS WITHOUT COMPLICATIONS Status: Acute Current Visit: Yes (5) Transaminitis SNOMED Code(s): 349313094, 730330495 ICD Code: R74.01 - ELEVATION OF LEVELS OF LIVER TRANSAMINASE LEVELS Status: Acute Current Visit: Yes (6) Abnormal liver function test SNOMED Code(s): 894483726 ICD Code: R94.5 - ABNORMAL RESULTS OF LIVER FUNCTION STUDIES Status: Acute Current Visit: No (7) Alcoholic hepatitis SNOMED Code(s): 542279957 ICD Code: K70.10 - ALCOHOLIC HEPATITIS WITHOUT ASCITES Status: Acute Current Visit: Yes Problem List Initiated/Reviewed/Updated: Yes Orders Last 24hrs: Active Orders 24 hr Category Date Time Status Admission Status [Patient Status] [ADT] Stat ADT 10/05/20 18:58 Active Antiembolic Devices [RC] PER UNIT ROUTINE Care 10/05/20 19:20 Ordered EKG Documentation Completion [RC] STAT Care 10/05/20 14:15 Active Oxygen Therapy [RC] PRN Care 10/05/20 19:18 Ordered RT Aerosol Therapy [RC] ASDIRECTED Care 10/05/20 19:20 Ordered VTE/DVT Education [RC] PER UNIT ROUTINE Care 10/05/20 19:18 Ordered Vital Signs [RC] Q4H Care 10/05/20 19:18 Ordered AMMONIA VENOUS [CHEM] Stat Lab 10/05/20 19:22 Ordered CULTURE BLOOD [BC] Stat Lab 10/05/20 16:08 Results CULTURE BLOOD [BC] Stat Lab 10/05/20 16:51 Results CULTURE BODY FLUID + SMEAR [RM] Stat Lab 10/05/20 18:20 Received CULTURE URINE [RM] Stat Lab 10/05/20 14:36 Received GLUCOSE,BODY FLUID [BF] Stat Lab 10/05/20 18:20 Results GRAM STAIN [RM] Stat Lab 10/05/20 18:20 Received LACTATE DEHYDROGENASE,BODY FL [BF] Stat Lab 10/05/20 18:20 Results PROTEIN,BODY FLUID [BF] Stat Lab 10/05/20 18:20 Results Albuterol/Ipratropium [DuoNeb 3.0-0.5 MG/3 ML] Med 10/05/20 19:18 Ordered 3 ml NEB Q4HRRT PRN Heparin Sodium Med 10/05/20 19:30 Ordered 5,000 units SUBCUT Q8H Piperacillin/Tazobactam [Piperacil-Tazobact] 4.5 gm Med 10/06/20 00:00 Ordered Sodium Chloride 0.9% [Normal Saline] 100 ml IV Q8H Blood Culture x2 Reflex Set [OM.PC] Stat Oth 10/05/20 15:34 Ordered Sequential Compression Device [OM.PC] Per Unit Routine Oth 10/05/20 19:19 Ordered Resuscitation Status Routine Resus Stat 10/05/20 19:18 Ordered Medication Orders Albuterol/Ipratropium (Duoneb 3.0-0.5 Mg/3 Ml) 3 ml NEB Q4HRRT PRN PRN Reason: Shortness Of Breath/wheezing Heparin Sodium (Porcine) (Heparin Sodium) 5,000 units SUBCUT Q8H DENISE Piperacillin Sod/Tazobactam (Sod 4.5 gm/ Sodium Chloride) 100 mls @ 100 mls/hr IV Q8H DENISE Assessment/Plan Comment:: 35 y/o F admitted for abdominla pain Known h/o alcoholic hepatitis SAAG is 1.8 g/dl, ascites likely due to PHT CT scan showed pancolitis, start IV antibiotics f/u on UA start clear diet and advance as tolerated Zofran for N/V Dilaudid for pain [employer] daily Will need outpatient eval by escrow representative Counselled against alcohol use
[2020-10-05] MEDS ORDERED: Heparin Sodium 5,000 Units/ML Vial SUBCUT SCH (19:30)
[2020-10-05] MEDS ORDERED: Lactulose Soln 10 GM/15 ML 15 ML UD Cup PO ONE (21:21)
[2020-10-05] MEDS: Thiamine 100 MG Tab PO SCH (21:46)
[2020-10-05] MEDS: Ondansetron 4 MG/2 ML SDV IVPUSH PRN (23:43)
[2020-10-05] MEDS: HYDROmorphone 1 MG/ML Syringe IVPUSH PRN (23:43)
[2020-10-05] MEDS: Piperacillin/Tazobactam 4.5 GM in Sodium Chloride 0.9% 100 ML IV SCH (23:49)
[2020-10-06] MEDS ORDERED: Cocoa Butter/Phenylephrine Rectal Supp RECTAL ONE (00:04)
[2020-10-06] MEDS ORDERED: Spironolactone 25 MG Tab PO ONE (00:10)
[2020-10-06] MEDS ORDERED: Furosemide 20 MG Tab PO ONE (00:10)
[2020-10-06] MEDS: HYDROmorphone 1 MG/ML Syringe IVPUSH PRN ×5 (04:51→23:43)
[2020-10-06] MEDS: Heparin Sodium 5,000 Units/ML Vial SUBCUT SCH ×3 (04:51→21:20)
[2020-10-06] MEDS: Ondansetron 4 MG/2 ML SDV IVPUSH PRN ×5 (04:51→23:26)
[2020-10-06 06:59] LABS: BLOOD UREA NITROGEN,BUN 7 mg/dL (7.0-18.0); CARBON DIOXIDE,CO2 28.2 mmol/L (21.0-32.0); CHLORIDE,CL 101 mmol/L (98-107); GLUCOSE RANDOM 92 mg/dL (74-106); SODIUM,NA 137 mmol/L (136-145)
[2020-10-06] MEDS ORDERED: Pantoprazole 40 MG Tab.CR PO SCH (07:30)
[2020-10-06] MEDS: Piperacillin/Tazobactam 4.5 GM in Sodium Chloride 0.9% 100 ML IV SCH ×3 (08:18→23:31)
[2020-10-06] MEDS: Pantoprazole 40 MG in Sodium Chloride 0.9% 10 ML IV SCH (08:21)
[2020-10-06] MEDS: Folic Acid 1 MG Tab PO SCH (08:23)
[2020-10-06] MEDS ORDERED: Magnesium Sulfate/Water 2 GM/50 ML BAG IV ONE (11:09)
[2020-10-06] MEDS: Potassium Chloride 10% 20 MEQ/15 ML Soln 30 ML UD Cup PO SCH ×2 (14:54→21:21)
--- NOTE | 2020-10-06 16:58 | PCM.PN ---
<Marcos Grajeda - Last Filed: 10/06/20 17:07> - General Info Date of Service: 10/06/20 Subjective Update: Patient denies fever, chills, nausea. Patient states abdominal pain and right upper quadrant pain. Patient also states generalized weakness and fatigue with decreased appetite. - Review of Systems General: Reports: Weakness, Fatigue. Denies: Fever, Chills Pulmonary: Denies: Shortness of Breath Cardiovascular: Denies: Chest Pain Gastrointestinal: Reports: Abdominal Pain, Decreased Appetite, Diarrhea Neurological: Denies: Confusion, Dizziness, Headache - Patient Data Vitals - Most Recent: Last Vital Signs Temp 96.9 F 10/06/20 12:00 Pulse 89 10/06/20 12:00 Resp 16 10/06/20 12:00 BP 112/76 10/06/20 12:00 Pulse Ox 97 10/06/20 12:00 Weight - Most Recent: 44.622 kg I&O - Last 24 Hours: Intake & Output 10/06/20 10/06/20 10/06/20 06:59 14:59 22:59 Intake Total 700 Output Total 400 Balance 300 Lab Results Last 24 Hours: Laboratory Results - last 24 hr 10/05/20 10/05/20 10/05/20 Range/Units 18:20 18:20 18:20 WBC (4.0-11.0) K/uL RBC (4.30-5.90) M/uL Hgb (12.0-16.0) g/dL Hct (36.0-46.0) % MCV (80.0-98.0) fL MCH (27.0-32.0) pg MCHC (31.0-37.0) g/dL RDW Std Deviation (28.0-62.0) fl RDW Coeff of Blue (11.0-15.0) % Plt Count (150-400) K/uL MPV (7.40-12.00) fL Neut % (Auto) (48.0-80.0) % Lymph % (Auto) (16.0-40.0) % [place] % (Auto) (0.0-15.0) % Eos % (Auto) (0.0-7.0) % Baso % (Auto) (0.0-1.5) % Neut # (Auto) (1.4-5.7) K/uL Lymph # (Auto) (0.6-2.4) K/uL [place] # (Auto) (0.0-0.8) K/uL Eos # (Auto) (0.0-0.7) K/uL Baso # (Auto) (0.0-0.1) K/uL Nucleated RBC % /100WBC Nucleated RBCs # K/uL Sodium (136-145) mmol/L Potassium (3.5-5.1) mmol/L Chloride (98-107) mmol/L Carbon Dioxide (21.0-32.0) mmol/L BUN (7.0-18.0) mg/dL Creatinine (0.6-1.0) mg/dL Est Cr Clr Drug Dosing mL/min Estimated GFR (MDRD) ml/min Glucose (74-106) mg/dL Calcium (8.5-10.1) mg/dL Phosphorus (2.6-4.7) mg/dL Magnesium (1.8-2.4) mg/dL Total Bilirubin (0.2-1.0) mg/dL AST (15-37) IU/L ALT (14-63) IU/L Alkaline Phosphatase (46-116) U/L Ammonia (19-54) ug/dL Total Protein (6.4-8.2) g/dL Albumin (3.4-5.0) g/dL Globulin (2.6-4.0) g/dL Albumin/Globulin Ratio (0.9-1.6) Fluid Type PER PER PER Fluid Color YELLOW Fluid Appearance CLEAR Fluid WBC 33 /uL Fluid RBC < 3000 /uL Fluid Mononuclear Cell 88 % Fl Polymorphonucl Cell 12 % Fluid Glucose 94 mg/dL Fluid Total Protein <2.0 g/dL Fluid Albumin <0.6 g/dL Fluid LDH 44 U/L 10/05/20 10/06/20 10/06/20 Range/Units 19:53 05:53 05:53 WBC 10.07 (4.0-11.0) K/uL RBC 2.52 L (4.30-5.90) M/uL Hgb 9.8 L (12.0-16.0) g/dL Hct 29.1 L (36.0-46.0) % MCV 115.5 H (80.0-98.0) fL MCH 38.9 H (27.0-32.0) pg MCHC 33.7 (31.0-37.0) g/dL RDW Std Deviation 56.4 (28.0-62.0) fl RDW Coeff of Blue 14 (11.0-15.0) % Plt Count 184 (150-400) K/uL MPV 11.60 (7.40-12.00) fL Neut % (Auto) 77.6 (48.0-80.0) % Lymph % (Auto) 14.8 L (16.0-40.0) % [place] % (Auto) 6.6 (0.0-15.0) % Eos % (Auto) 0.6 (0.0-7.0) % Baso % (Auto) 0.4 (0.0-1.5) % Neut # (Auto) 7.8 H (1.4-5.7) K/uL Lymph # (Auto) 1.5 (0.6-2.4) K/uL [place] # (Auto) 0.7 (0.0-0.8) K/uL Eos # (Auto) 0.1 (0.0-0.7) K/uL Baso # (Auto) 0.0 (0.0-0.1) K/uL Nucleated RBC % 0.0 /100WBC Nucleated RBCs # 0 K/uL Sodium 137 (136-145) mmol/L Potassium 3.0 L (3.5-5.1) mmol/L Chloride 101 (98-107) mmol/L Carbon Dioxide 28.2 (21.0-32.0) mmol/L BUN 7 (7.0-18.0) mg/dL Creatinine 0.7 (0.6-1.0) mg/dL Est Cr Clr Drug Dosing 78.27 mL/min Estimated GFR (MDRD) > 60.0 ml/min Glucose 92 (74-106) mg/dL Calcium 7.8 L (8.5-10.1) mg/dL Phosphorus 3.2 (2.6-4.7) mg/dL Magnesium 1.6 L (1.8-2.4) mg/dL Total Bilirubin 4.8 H (0.2-1.0) mg/dL AST 133 H (15-37) IU/L ALT 95 H (14-63) IU/L Alkaline Phosphatase 150 H (46-116) U/L Ammonia 64 H (19-54) ug/dL Total Protein 4.8 L (6.4-8.2) g/dL Albumin 2.0 L (3.4-5.0) g/dL Globulin 2.8 (2.6-4.0) g/dL Albumin/Globulin Ratio 0.7 L (0.9-1.6) Fluid Type Fluid Color Fluid Appearance Fluid WBC /uL Fluid RBC /uL Fluid Mononuclear Cell % Fl Polymorphonucl Cell % Fluid Glucose mg/dL Fluid Total Protein g/dL Fluid Albumin g/dL Fluid LDH U/L 10/06/20 Range/Units 12:15 WBC (4.0-11.0) K/uL RBC (4.30-5.90) M/uL Hgb 10.1 L (12.0-16.0) g/dL Hct 30.3 L (36.0-46.0) % MCV (80.0-98.0) fL MCH (27.0-32.0) pg MCHC (31.0-37.0) g/dL RDW Std Deviation (28.0-62.0) fl RDW Coeff of Blue (11.0-15.0) % Plt Count (150-400) K/uL MPV (7.40-12.00) fL Neut % (Auto) (48.0-80.0) % Lymph % (Auto) (16.0-40.0) % [place] % (Auto) (0.0-15.0) % Eos % (Auto) (0.0-7.0) % Baso % (Auto) (0.0-1.5) % Neut # (Auto) (1.4-5.7) K/uL Lymph # (Auto) (0.6-2.4) K/uL [place] # (Auto) (0.0-0.8) K/uL Eos # (Auto) (0.0-0.7) K/uL Baso # (Auto) (0.0-0.1) K/uL Nucleated RBC % /100WBC Nucleated RBCs # K/uL Sodium (136-145) mmol/L Potassium (3.5-5.1) mmol/L Chloride (98-107) mmol/L Carbon Dioxide (21.0-32.0) mmol/L BUN (7.0-18.0) mg/dL Creatinine (0.6-1.0) mg/dL Est Cr Clr Drug Dosing mL/min Estimated GFR (MDRD) ml/min Glucose (74-106) mg/dL Calcium (8.5-10.1) mg/dL Phosphorus (2.6-4.7) mg/dL Magnesium (1.8-2.4) mg/dL Total Bilirubin (0.2-1.0) mg/dL AST (15-37) IU/L ALT (14-63) IU/L Alkaline Phosphatase (46-116) U/L Ammonia (19-54) ug/dL Total Protein (6.4-8.2) g/dL Albumin (3.4-5.0) g/dL Globulin (2.6-4.0) g/dL Albumin/Globulin Ratio (0.9-1.6) Fluid Type Fluid Color Fluid Appearance Fluid WBC /uL Fluid RBC /uL Fluid Mononuclear Cell % Fl Polymorphonucl Cell % Fluid Glucose mg/dL Fluid Total Protein g/dL Fluid Albumin g/dL Fluid LDH U/L Donny Results Last 24 Hours: Microbiology 10/05/20 16:08 Aerobic Blood Culture - Preliminary Blood - Venous NO GROWTH AFTER 1 DAY Anaerobic Blood Culture - Final 10/05/20 18:20 Gram Stain - Final Peritoneal Fluid Body Fluid Culture - Preliminary NO GROWTH AFTER 1 DAY 10/05/20 16:51 Anaerobic Blood Culture - Final Blood - Venous - Lab Draw Med Orders - Current: Current Medications Albuterol/Ipratropium (Duoneb 3.0-0.5 Mg/3 Ml) 3 ml NEB Q4HRRT PRN PRN Reason: Shortness Of Breath/wheezing Folic Acid (Folic Acid) 1 mg PO DAILY DENISE Last Admin: 10/06/20 08:23 Dose: 1 mg Documented by: Heparin Sodium (Porcine) (Heparin Sodium) 5,000 units SUBCUT Q8H DENISE Last Admin: 10/06/20 14:54 Dose: 5,000 units Documented by: Hydromorphone HCl (Dilaudid) 1 mg IVPUSH Q4H PRN PRN Reason: Pain Last Admin: 10/06/20 12:58 Dose: 1 mg Documented by: Piperacillin Sod/Tazobactam (Sod 4.5 gm/ Sodium Chloride) 100 mls @ 100 mls/hr IV Q8H [facility] Last Admin: 10/06/20 08:18 Dose: 100 mls/hr Documented by: Pantoprazole Sodium 40 mg/ (Sodium Chloride) 10 mls @ 300 mls/hr IV DAILY [facility] Last Admin: 10/06/20 08:21 Dose: 300 mls/hr Documented by: Ondansetron HCl (Zofran) 4 mg IVPUSH Q4H PRN PRN Reason: Nausea/Vomiting Last Admin: 10/06/20 11:51 Dose: 4 mg Documented by: Potassium Chloride (Potassium Chloride) 20 meq PO TID DENISE Stop: 10/07/20 14:01 Last Admin: 10/06/20 14:54 Dose: 20 meq Documented by: Thiamine HCl (Vitamin B-1) 100 mg PO BEDTIME [facility] Last Admin: 10/05/20 21:46 Dose: 100 mg Documented by: Discontinued Medications Megargel Butter/Phenylephrine (Preparation H Supp) 1 each RECTAL ONETIME ONE Stop: 10/06/20 00:05 Last Admin: 10/06/20 04:49 Dose: 1 each Documented by: Furosemide (Lasix) 20 mg PO ONETIME ONE Stop: 10/06/20 00:11 Last Admin: 10/06/20 00:50 Dose: Not Given Documented by: Heparin Sodium (Porcine) (Heparin Sodium) 5,000 units SUBCUT Q8H [facility] Last Admin: 10/05/20 21:46 Dose: 5,000 units Documented by: Hydromorphone HCl (Dilaudid) 1 mg IVPUSH ONETIME ONE Stop: 10/05/20 16:46 Last Admin: 10/05/20 17:38 Dose: 1 mg Documented by: Sodium Chloride (Normal Saline) 1,000 mls @ 999 mls/hr IV BOLUS ONE Stop: 10/05/20 15:12 Last Admin: 10/05/20 15:38 Dose: 999 mls/hr Documented by: Piperacillin Sod/Tazobactam (Sod 4.5 gm/ Sodium Chloride) 100 mls @ 100 mls/hr IV ONETIME ONE Stop: 10/05/20 17:46 Last Admin: 10/05/20 17:26 Dose: 100 mls/hr Documented by: Magnesium Sulfate (Magnesium Sulfate In Water Premix) 2 gm in 50 mls @ 50 mls/hr IV ONETIME ONE Stop: 10/06/20 12:08 Last Admin: 10/06/20 11:51 Dose: 50 mls/hr Documented by: Iopamidol (Isovue Multipack-370 (76%)) 56 ml IVPUSH ONETIME ONE Stop: 10/05/20 15:41 Last Admin: 10/05/20 15:40 Dose: 56 ml Documented by: Lactulose (Chronulac) 10 gm PO ONETIME ONE Stop: 10/05/20 21:22 Last Admin: 10/05/20 21:45 Dose: 10 gm Documented by: Lidocaine HCl (Xylocaine-Mpf 1%) 10 ml INJECT ONETIME ONE Stop: 10/05/20 15:37 Last Admin: 10/05/20 17:46 Dose: Not Given Documented by: Lidocaine HCl (Xylocaine-Mpf 1%) 10 ml INJECT ONETIME ONE Stop: 10/05/20 16:07 Last Admin: 10/05/20 17:46 Dose: 10 ml Documented by: Lorazepam (Ativan) 1 mg IVPUSH ONETIME ONE Stop: 10/05/20 16:46 Last Admin: 10/05/20 17:38 Dose: 1 mg Documented by: Ondansetron HCl (Zofran) 4 mg IVPUSH ONETIME ONE Stop: 10/05/20 16:47 Last Admin: 10/05/20 17:37 Dose: 4 mg Documented by: Pantoprazole Sodium (Protonix) 40 mg PO ACBREAKFAST DENISE Potassium Chloride (Klor-Con M20) 40 meq PO ONETIME ONE Stop: 10/05/20 15:07 Last Admin: 10/05/20 15:41 Dose: 40 meq Documented by: Spironolactone (Aldactone) 50 mg PO ONETIME ONE Stop: 10/06/20 00:11 Last Admin: 10/06/20 00:54 Dose: 50 mg Documented by: - Exam General: Alert, Oriented Lungs: Clear to Auscultation, Normal Respiratory Effort Cardiovascular: Regular Rate, Regular Rhythm GI/Abdominal Exam: Normal Bowel Sounds, Soft, Tender Psy/Mental Status: Alert Sepsis Event Note - Evaluation Sepsis Screening Result: No Definite Risk - Focused Exam Vital Signs: Vital Signs Temp Pulse Resp BP Pulse Ox 10/06/20 12:00 96.9 F 89 16 112/76 97 10/06/20 08:00 97 F 97 18 111/80 99 - Problem List Review Problem List Initiated/Reviewed/Updated: Yes - My Orders Last 24 Hours: My Active Orders 10/06/20 Lunch Clear Liquid Diet [DIET] 10/06/20 11:23 OCCULT BLOOD DIAGNOSTIC [OP] Routine 10/06/20 14:00 Potassium Chloride 20 meq PO TID - Plan Plan:: PancolitisZosyn Q8, clear liquid diet advance as tolerated, Zofran, Dilaudid, daily CMP HepatitisDaily CMP, outpatient evaluation beamer helper Hypokalemia K+ 3.0, 20 mEq potassium chloride rider solution TID prescribed Hypomagnesemia Mg+ 1.6, 2 g magnesium sulfate prescribed <Kacey Jackson - Last Filed: 10/07/20 12:35> - Patient Data Vitals - Most Recent: Last Vital Signs Temp 35.6 C L 10/07/20 11:00 Pulse 93 10/07/20 11:00 Resp 16 10/07/20 11:00 BP 101/66 10/07/20 11:00 Pulse Ox 100 10/07/20 11:00 I&O - Last 24 Hours: Intake & Output 10/06/20 10/07/20 10/07/20 22:59 06:59 14:59 Intake Total 300 860 Output Total 350 300 Balance -50 560 Lab Results Last 24 Hours: Laboratory Results - last 24 hr 10/06/20 10/07/20 10/07/20 Range/Units 12:15 08:35 08:35 WBC 7.40 (4.0-11.0) K/uL RBC 2.57 L (4.30-5.90) M/uL Hgb 10.1 L 10.1 L (12.0-16.0) g/dL Hct 30.3 L 29.8 L (36.0-46.0) % MCV 116.0 H (80.0-98.0) fL MCH 39.3 H (27.0-32.0) pg MCHC 33.9 (31.0-37.0) g/dL RDW Std Deviation 56.3 (28.0-62.0) fl RDW Coeff of Blue 13 (11.0-15.0) % Plt Count 180 (150-400) K/uL MPV 11.50 (7.40-12.00) fL Neut % (Auto) 79.4 (48.0-80.0) % Lymph % (Auto) 13.4 L (16.0-40.0) % [place] % (Auto) 5.8 (0.0-15.0) % Eos % (Auto) 1.1 (0.0-7.0) % Baso % (Auto) 0.3 (0.0-1.5) % Neut # (Auto) 5.9 H (1.4-5.7) K/uL Lymph # (Auto) 1.0 (0.6-2.4) K/uL [place] # (Auto) 0.4 (0.0-0.8) K/uL Eos # (Auto) 0.1 (0.0-0.7) K/uL Baso # (Auto) 0.0 (0.0-0.1) K/uL Nucleated RBC % 0.0 /100WBC Nucleated RBCs # 0 K/uL Sodium 136 (136-145) mmol/L Potassium 3.0 L (3.5-5.1) mmol/L Chloride 100 (98-107) mmol/L Carbon Dioxide 27.3 (21.0-32.0) mmol/L BUN 6 L (7.0-18.0) mg/dL Creatinine 0.8 (0.6-1.0) mg/dL Est Cr Clr Drug Dosing 68.48 mL/min Estimated GFR (MDRD) > 60.0 ml/min Glucose 97 (74-106) mg/dL Calcium 7.9 L (8.5-10.1) mg/dL Phosphorus 2.5 L (2.6-4.7) mg/dL Magnesium 2.1 (1.8-2.4) mg/dL Total Bilirubin 3.9 H (0.2-1.0) mg/dL AST 147 H (15-37) IU/L ALT 95 H (14-63) IU/L Alkaline Phosphatase 152 H (46-116) U/L Total Protein 5.2 L (6.4-8.2) g/dL Albumin 2.2 L (3.4-5.0) g/dL Globulin 3.0 (2.6-4.0) g/dL Albumin/Globulin Ratio 0.7 L (0.9-1.6) Donny Results Last 24 Hours: Microbiology 10/05/20 18:20 Gram Stain - Final Peritoneal Fluid Body Fluid Culture - Preliminary NO GROWTH AFTER 2 DAYS 10/05/20 14:36 Urine Culture - Final Urine, Clean Catch MIXED ELIJAH >100,000 CFU/ML 10/05/20 16:51 Aerobic Blood Culture - Preliminary Blood - Venous - Lab Draw NO GROWTH AFTER 1 DAY Anaerobic Blood Culture - Final 10/05/20 16:08 Aerobic Blood Culture - Preliminary Blood - Venous NO GROWTH AFTER 1 DAY Anaerobic Blood Culture - Final Med Orders - Current: Current Medications Albuterol/Ipratropium (Duoneb 3.0-0.5 Mg/3 Ml) 3 ml NEB Q4HRRT PRN PRN Reason: Shortness Of Breath/wheezing Docusate Sodium (Colace) 100 mg PO BID PRN PRN Reason: Constipation Last Admin: 10/07/20 09:28 Dose: 100 mg Documented by: Folic Acid (Folic Acid) 1 mg PO DAILY [facility] Last Admin: 10/07/20 09:28 Dose: 1 mg Documented by: Heparin Sodium (Porcine) (Heparin Sodium) 5,000 units SUBCUT Q8H [facility] Last Admin: 10/07/20 04:46 Dose: 5,000 units Documented by: Hydromorphone HCl (Dilaudid) 1 mg IVPUSH Q4H PRN PRN Reason: Pain Last Admin: 10/07/20 09:52 Dose: 1 mg Documented by: Piperacillin Sod/Tazobactam (Sod 4.5 gm/ Sodium Chloride) 100 mls @ 100 mls/hr IV Q8H [facility] Last Admin: 10/07/20 07:55 Dose: 100 mls/hr Documented by: Pantoprazole Sodium 40 mg/ (Sodium Chloride) 10 mls @ 300 mls/hr IV DAILY [facility] Last Admin: 10/07/20 09:28 Dose: 300 mls/hr Documented by: Ibuprofen (Motrin) 200 mg PO Q8H PRN PRN Reason: Headache/Pain Ondansetron HCl (Zofran) 4 mg IVPUSH Q4H PRN PRN Reason: Nausea/Vomiting Last Admin: 10/07/20 09:28 Dose: 4 mg Documented by: Potassium Chloride (Potassium Chloride) 20 meq PO TID DENISE Stop: 10/07/20 14:01 Last Admin: 10/07/20 06:59 Dose: 20 meq Documented by: Thiamine HCl (Vitamin B-1) 100 mg PO BEDTIME DENISE Last Admin: 10/06/20 20:26 Dose: 100 mg Documented by: Discontinued Medications Megargel Butter/Phenylephrine (Preparation H Supp) 1 each RECTAL ONETIME ONE Stop: 10/06/20 00:05 Last Admin: 10/06/20 04:49 Dose: 1 each Documented by: Furosemide (Lasix) 20 mg PO ONETIME ONE Stop: 10/06/20 00:11 Last Admin: 10/06/20 00:50 Dose: Not Given Documented by: Heparin Sodium (Porcine) (Heparin Sodium) 5,000 units SUBCUT Q8H DENISE Last Admin: 10/05/20 21:46 Dose: 5,000 units Documented by: Hydromorphone HCl (Dilaudid) 1 mg IVPUSH ONETIME ONE Stop: 10/05/20 16:46 Last Admin: 10/05/20 17:38 Dose: 1 mg Documented by: Sodium Chloride (Normal Saline) 1,000 mls @ 999 mls/hr IV BOLUS ONE Stop: 10/05/20 15:12 Last Admin: 10/05/20 15:38 Dose: 999 mls/hr Documented by: Piperacillin Sod/Tazobactam (Sod 4.5 gm/ Sodium Chloride) 100 mls @ 100 mls/hr IV ONETIME ONE Stop: 10/05/20 17:46 Last Admin: 10/05/20 17:26 Dose: 100 mls/hr Documented by: Magnesium Sulfate (Magnesium Sulfate In Water Premix) 2 gm in 50 mls @ 50 mls/hr IV ONETIME ONE Stop: 10/06/20 12:08 Last Admin: 10/06/20 11:51 Dose: 50 mls/hr Documented by: Ibuprofen (Motrin) 400 mg PO ONETIME ONE Stop: 10/07/20 03:15 Last Admin: 10/07/20 03:41 Dose: 400 mg Documented by: Ibuprofen (Motrin) 200 mg PO Q4H PRN PRN Reason: Headache/Pain Last Admin: 10/07/20 09:52 Dose: 200 mg Documented by: Iopamidol (Isovue Multipack-370 (76%)) 56 ml IVPUSH ONETIME ONE Stop: 10/05/20 15:41 Last Admin: 10/05/20 15:40 Dose: 56 ml Documented by: Lactulose (Chronulac) 10 gm PO ONETIME ONE Stop: 10/05/20 21:22 Last Admin: 10/05/20 21:45 Dose: 10 gm Documented by: Lidocaine HCl (Xylocaine-Mpf 1%) 10 ml INJECT ONETIME ONE Stop: 10/05/20 15:37 Last Admin: 10/05/20 17:46 Dose: Not Given Documented by: Lidocaine HCl (Xylocaine-Mpf 1%) 10 ml INJECT ONETIME ONE Stop: 10/05/20 16:07 Last Admin: 10/05/20 17:46 Dose: 10 ml Documented by: Lorazepam (Ativan) 1 mg IVPUSH ONETIME ONE Stop: 10/05/20 16:46 Last Admin: 10/05/20 17:38 Dose: 1 mg Documented by: Ondansetron HCl (Zofran) 4 mg IVPUSH ONETIME ONE Stop: 10/05/20 16:47 Last Admin: 10/05/20 17:37 Dose: 4 mg Documented by: Pantoprazole Sodium (Protonix) 40 mg PO ACBREAKFAST DENISE Potassium Chloride (Klor-Con M20) 40 meq PO ONETIME ONE Stop: 10/05/20 15:07 Last Admin: 10/05/20 15:41 Dose: 40 meq Documented by: Spironolactone (Aldactone) 50 mg PO ONETIME ONE Stop: 10/06/20 00:11 Last Admin: 10/06/20 00:54 Dose: 50 mg Documented by: Sepsis Event Note - Focused Exam Vital Signs: Vital Signs Temp Pulse Resp BP Pulse Ox 10/07/20 11:00 35.6 C L 93 16 101/66 100 10/07/20 07:00 36.0 C L 92 18 105/74 100 10/07/20 03:43 35.9 C L 91 18 105/70 99 - Problem List & Annotations (1) Ascites SNOMED Code(s): 001583238 Code(s): R18.8 - OTHER ASCITES Status: Acute Current Visit: Yes Qualifiers: Ascites type: other type Qualified Code(s): R18.8 - Other ascites (2) Hepatitis SNOMED Code(s): 800153139 Code(s): K75.9 - INFLAMMATORY LIVER DISEASE, UNSPECIFIED Status: Acute Current Visit: Yes (3) Hypokalemia SNOMED Code(s): 20752940 Code(s): E87.6 - HYPOKALEMIA Status: Acute Current Visit: Yes (4) Pancolitis SNOMED Code(s): 321558818 Code(s): K51.00 - ULCERATIVE (CHRONIC) PANCOLITIS WITHOUT COMPLICATIONS Status: Acute Current Visit: Yes (5) Transaminitis SNOMED Code(s): 513840366, 986854232 Code(s): R74.01 - ELEVATION OF LEVELS OF LIVER TRANSAMINASE LEVELS Status: Acute Current Visit: Yes (6) Abnormal liver function test SNOMED Code(s): 881888923 Code(s): R94.5 - ABNORMAL RESULTS OF LIVER FUNCTION STUDIES Status: Acute Current Visit: No (7) Alcoholic hepatitis SNOMED Code(s): 744976767 Code(s): K70.10 - ALCOHOLIC HEPATITIS WITHOUT ASCITES Status: Acute Current Visit: Yes - My Orders Last 24 Hours: My Active Orders 10/06/20 20:37 Communication Order [RC] PRN - Plan Plan:: I have seen and evaluated the patient and agree with the residents note unless specified in my note
[2020-10-06] MEDS: Thiamine 100 MG Tab PO SCH (20:26)
[2020-10-07] MEDS ORDERED: Ibuprofen 400 MG Tab PO ONE (03:14)
[2020-10-07] MEDS: Ondansetron 4 MG/2 ML SDV IVPUSH PRN ×5 (04:38→23:28)
[2020-10-07] MEDS: Heparin Sodium 5,000 Units/ML Vial SUBCUT SCH ×3 (04:46→20:48)
[2020-10-07] MEDS: HYDROmorphone 1 MG/ML Syringe IVPUSH PRN ×5 (04:53→23:40)
[2020-10-07] MEDS: Potassium Chloride 10% 20 MEQ/15 ML Soln 30 ML UD Cup PO SCH ×2 (06:59→13:52)
[2020-10-07] MEDS: Piperacillin/Tazobactam 4.5 GM in Sodium Chloride 0.9% 100 ML IV SCH ×3 (07:55→23:34)
[2020-10-07] MEDS ORDERED: Ibuprofen 200 MG Tab PO PRN ×2 (09:14→11:33)
[2020-10-07 09:23] LABS: BLOOD UREA NITROGEN,BUN 6 mg/dL (7.0-18.0); CARBON DIOXIDE,CO2 27.3 mmol/L (21.0-32.0); CHLORIDE,CL 100 mmol/L (98-107); GLUCOSE RANDOM 97 mg/dL (74-106); SODIUM,NA 136 mmol/L (136-145)
[2020-10-07] MEDS: Pantoprazole 40 MG in Sodium Chloride 0.9% 10 ML IV SCH (09:28)
[2020-10-07] MEDS: Folic Acid 1 MG Tab PO SCH (09:28)
[2020-10-07] MEDS: Docusate Sodium 100 MG Cap PO PRN ×2 (09:28→23:52)
[2020-10-07] MEDS ORDERED: Potassium Chloride 20 MEQ Tab.ER PO ONE ×2 (20:40→23:30)
[2020-10-07] MEDS: Thiamine 100 MG Tab PO SCH (20:50)
--- NOTE | 2020-10-07 22:50 | PCM.PN ---
<Marcos Grajeda - Last Filed: 10/07/20 20:43> - General Info Date of Service: 10/07/20 Subjective Update: Patient states decreased abdominal pain decreased right upper quadrant pain this morning. Patient denies nausea or vomiting, and would like to advance her diet to see how she tolerates. Patient denies fever chills. - Review of Systems General: Reports: Weakness. Denies: Fever, Chills Pulmonary: Denies: Shortness of Breath, Pleuritic Chest Pain Cardiovascular: Denies: Chest Pain, Palpitations Gastrointestinal: Reports: Abdominal Pain, Decreased Appetite. Denies: Nausea, Vomiting Neurological: Denies: Dizziness, Headache Psychiatric: Denies: Confusion - Patient Data Vitals - Most Recent: Last Vital Signs Temp 97.0 F 10/07/20 15:00 Pulse 81 10/07/20 15:00 Resp 16 10/07/20 15:00 BP 112/74 10/07/20 15:00 Pulse Ox 100 10/07/20 15:00 Weight - Most Recent: 44.622 kg I&O - Last 24 Hours: Intake & Output 10/07/20 10/07/20 10/07/20 06:59 14:59 22:59 Intake Total 860 960 Output Total 300 250 Balance 560 710 Lab Results Last 24 Hours: Laboratory Results - last 24 hr 10/07/20 10/07/20 Range/Units 08:35 08:35 WBC 7.40 (4.0-11.0) K/uL RBC 2.57 L (4.30-5.90) M/uL Hgb 10.1 L (12.0-16.0) g/dL Hct 29.8 L (36.0-46.0) % MCV 116.0 H (80.0-98.0) fL MCH 39.3 H (27.0-32.0) pg MCHC 33.9 (31.0-37.0) g/dL RDW Std Deviation 56.3 (28.0-62.0) fl RDW Coeff of Blue 13 (11.0-15.0) % Plt Count 180 (150-400) K/uL MPV 11.50 (7.40-12.00) fL Neut % (Auto) 79.4 (48.0-80.0) % Lymph % (Auto) 13.4 L (16.0-40.0) % [place] % (Auto) 5.8 (0.0-15.0) % Eos % (Auto) 1.1 (0.0-7.0) % Baso % (Auto) 0.3 (0.0-1.5) % Neut # (Auto) 5.9 H (1.4-5.7) K/uL Lymph # (Auto) 1.0 (0.6-2.4) K/uL [place] # (Auto) 0.4 (0.0-0.8) K/uL Eos # (Auto) 0.1 (0.0-0.7) K/uL Baso # (Auto) 0.0 (0.0-0.1) K/uL Nucleated RBC % 0.0 /100WBC Nucleated RBCs # 0 K/uL Sodium 136 (136-145) mmol/L Potassium 3.0 L (3.5-5.1) mmol/L Chloride 100 (98-107) mmol/L Carbon Dioxide 27.3 (21.0-32.0) mmol/L BUN 6 L (7.0-18.0) mg/dL Creatinine 0.8 (0.6-1.0) mg/dL Est Cr Clr Drug Dosing 68.48 mL/min Estimated GFR (MDRD) > 60.0 ml/min Glucose 97 (74-106) mg/dL Calcium 7.9 L (8.5-10.1) mg/dL Phosphorus 2.5 L (2.6-4.7) mg/dL Magnesium 2.1 (1.8-2.4) mg/dL Total Bilirubin 3.9 H (0.2-1.0) mg/dL AST 147 H (15-37) IU/L ALT 95 H (14-63) IU/L Alkaline Phosphatase 152 H (46-116) U/L Total Protein 5.2 L (6.4-8.2) g/dL Albumin 2.2 L (3.4-5.0) g/dL Globulin 3.0 (2.6-4.0) g/dL Albumin/Globulin Ratio 0.7 L (0.9-1.6) Donny Results Last 24 Hours: Microbiology 10/05/20 16:51 Aerobic Blood Culture - Preliminary Blood - Venous - Lab Draw NO GROWTH AFTER 2 DAYS Anaerobic Blood Culture - Final 10/05/20 16:08 Aerobic Blood Culture - Preliminary Blood - Venous NO GROWTH AFTER 2 DAYS Anaerobic Blood Culture - Final 10/05/20 18:20 Gram Stain - Final Peritoneal Fluid Body Fluid Culture - Preliminary NO GROWTH AFTER 2 DAYS 10/05/20 14:36 Urine Culture - Final Urine, Clean Catch MIXED ELIJAH >100,000 CFU/ML Med Orders - Current: Current Medications Albuterol/Ipratropium (Duoneb 3.0-0.5 Mg/3 Ml) 3 ml NEB Q4HRRT PRN PRN Reason: Shortness Of Breath/wheezing Docusate Sodium (Colace) 100 mg PO BID PRN PRN Reason: Constipation Last Admin: 10/07/20 09:28 Dose: 100 mg Documented by: Folic Acid (Folic Acid) 1 mg PO DAILY [facility] Last Admin: 10/07/20 09:28 Dose: 1 mg Documented by: Heparin Sodium (Porcine) (Heparin Sodium) 5,000 units SUBCUT Q8H [facility] Last Admin: 10/07/20 13:52 Dose: 5,000 units Documented by: Hydromorphone HCl (Dilaudid) 1 mg IVPUSH Q4H PRN PRN Reason: Pain Last Admin: 10/07/20 19:00 Dose: 1 mg Documented by: Piperacillin Sod/Tazobactam (Sod 4.5 gm/ Sodium Chloride) 100 mls @ 100 mls/hr IV Q8H [facility] Last Admin: 10/07/20 16:14 Dose: 100 mls/hr Documented by: Pantoprazole Sodium 40 mg/ (Sodium Chloride) 10 mls @ 300 mls/hr IV DAILY [facility] Last Admin: 10/07/20 09:28 Dose: 300 mls/hr Documented by: Ibuprofen (Motrin) 200 mg PO Q8H PRN PRN Reason: Headache/Pain Ondansetron HCl (Zofran) 4 mg IVPUSH Q4H PRN PRN Reason: Nausea/Vomiting Last Admin: 10/07/20 18:46 Dose: 4 mg Documented by: Thiamine HCl (Vitamin B-1) 100 mg PO BEDTIME [facility] Last Admin: 10/06/20 20:26 Dose: 100 mg Documented by: Discontinued Medications Butner Butter/Phenylephrine (Preparation H Supp) 1 each RECTAL ONETIME ONE Stop: 10/06/20 00:05 Last Admin: 10/06/20 04:49 Dose: 1 each Documented by: Furosemide (Lasix) 20 mg PO ONETIME ONE Stop: 10/06/20 00:11 Last Admin: 10/06/20 00:50 Dose: Not Given Documented by: Heparin Sodium (Porcine) (Heparin Sodium) 5,000 units SUBCUT Q8H [facility] Last Admin: 10/05/20 21:46 Dose: 5,000 units Documented by: Hydromorphone HCl (Dilaudid) 1 mg IVPUSH ONETIME ONE Stop: 10/05/20 16:46 Last Admin: 10/05/20 17:38 Dose: 1 mg Documented by: Sodium Chloride (Normal Saline) 1,000 mls @ 999 mls/hr IV BOLUS ONE Stop: 10/05/20 15:12 Last Admin: 10/05/20 15:38 Dose: 999 mls/hr Documented by: Piperacillin Sod/Tazobactam (Sod 4.5 gm/ Sodium Chloride) 100 mls @ 100 mls/hr IV ONETIME ONE Stop: 10/05/20 17:46 Last Admin: 10/05/20 17:26 Dose: 100 mls/hr Documented by: Magnesium Sulfate (Magnesium Sulfate In Water Premix) 2 gm in 50 mls @ 50 mls/hr IV ONETIME ONE Stop: 10/06/20 12:08 Last Admin: 10/06/20 11:51 Dose: 50 mls/hr Documented by: Ibuprofen (Motrin) 400 mg PO ONETIME ONE Stop: 10/07/20 03:15 Last Admin: 10/07/20 03:41 Dose: 400 mg Documented by: Ibuprofen (Motrin) 200 mg PO Q4H PRN PRN Reason: Headache/Pain Last Admin: 10/07/20 09:52 Dose: 200 mg Documented by: Iopamidol (Isovue Multipack-370 (76%)) 56 ml IVPUSH ONETIME ONE Stop: 10/05/20 15:41 Last Admin: 10/05/20 15:40 Dose: 56 ml Documented by: Lactulose (Chronulac) 10 gm PO ONETIME ONE Stop: 10/05/20 21:22 Last Admin: 10/05/20 21:45 Dose: 10 gm Documented by: Lidocaine HCl (Xylocaine-Mpf 1%) 10 ml INJECT ONETIME ONE Stop: 10/05/20 15:37 Last Admin: 10/05/20 17:46 Dose: Not Given Documented by: Lidocaine HCl (Xylocaine-Mpf 1%) 10 ml INJECT ONETIME ONE Stop: 10/05/20 16:07 Last Admin: 10/05/20 17:46 Dose: 10 ml Documented by: Lorazepam (Ativan) 1 mg IVPUSH ONETIME ONE Stop: 10/05/20 16:46 Last Admin: 10/05/20 17:38 Dose: 1 mg Documented by: Ondansetron HCl (Zofran) 4 mg IVPUSH ONETIME ONE Stop: 10/05/20 16:47 Last Admin: 10/05/20 17:37 Dose: 4 mg Documented by: Pantoprazole Sodium (Protonix) 40 mg PO ACBREAKFAST [facility] Potassium Chloride (Klor-Con M20) 40 meq PO ONETIME ONE Stop: 10/05/20 15:07 Last Admin: 10/05/20 15:41 Dose: 40 meq Documented by: Potassium Chloride (Potassium Chloride) 20 meq PO TID [facility] Stop: 10/07/20 14:01 Last Admin: 10/07/20 13:52 Dose: 20 meq Documented by: Spironolactone (Aldactone) 50 mg PO ONETIME ONE Stop: 10/06/20 00:11 Last Admin: 10/06/20 00:54 Dose: 50 mg Documented by: - Exam General: Alert, Oriented Lungs: Clear to Auscultation, Normal Respiratory Effort Cardiovascular: Regular Rate, Regular Rhythm GI/Abdominal Exam: Normal Bowel Sounds, Soft, Tender Extremities: No Pedal Edema Sepsis Event Note - Evaluation Sepsis Screening Result: No Definite Risk - Focused Exam Vital Signs: Vital Signs Temp Pulse Resp BP Pulse Ox 10/07/20 15:00 97.0 F 81 16 112/74 100 10/07/20 11:00 96.1 F L 93 16 101/66 100 - Problem List & Annotations (1) Alcoholic hepatitis SNOMED Code(s): 189185720 Code(s): K70.10 - ALCOHOLIC HEPATITIS WITHOUT ASCITES Status: Acute (2) Hepatitis SNOMED Code(s): 506689949 Code(s): K75.9 - INFLAMMATORY LIVER DISEASE, UNSPECIFIED Status: Acute (3) Transaminitis SNOMED Code(s): 856362980, 017180970 Code(s): R74.01 - ELEVATION OF LEVELS OF LIVER TRANSAMINASE LEVELS Status: Acute - Problem List Review Problem List Initiated/Reviewed/Updated: Yes - My Orders Last 24 Hours: My Active Orders 10/07/20 Breakfast Soft Diet [DIET] 10/07/20 09:16 Docusate Sodium [Colace] 100 mg PO BID PRN 10/07/20 11:33 Ibuprofen [Motrin] 200 mg PO Q8H PRN 10/08/20 05:11 CBC WITH AUTO DIFF [HEME] AM CMP [COMPREHENSIVE METABOLIC PN,CMP] [CHEM] AM - Plan Plan:: PancolitisZosyn Q8, soft diet, Zofran, Dilaudid, daily CMP HepatitisDaily CMP, outpatient evaluation external grinder <Kacey Jackson - Last Filed: 10/08/20 21:15> - Patient Data Vitals - Most Recent: Last Vital Signs Temp 36.1 C 10/08/20 07:30 Pulse 95 10/08/20 07:30 Resp 16 10/08/20 04:00 BP 95/65 10/08/20 07:30 Pulse Ox 98 10/08/20 07:30 I&O - Last 24 Hours: Intake & Output 10/08/20 10/08/20 10/08/20 06:59 14:59 22:59 Intake Total 948 860 Output Total 651 350 Balance 297 510 Lab Results Last 24 Hours: Laboratory Results - last 24 hr 10/06/20 10/07/20 10/08/20 Range/Units 05:53 08:35 06:38 WBC 5.78 (4.0-11.0) K/uL RBC 2.53 L (4.30-5.90) M/uL Hgb 9.9 L (12.0-16.0) g/dL Hct 28.9 L (36.0-46.0) % MCV 114.2 H (80.0-98.0) fL MCH 39.1 H (27.0-32.0) pg MCHC 34.3 (31.0-37.0) g/dL RDW Std Deviation 54.9 (28.0-62.0) fl RDW Coeff of Blue 13 (11.0-15.0) % Plt Count 170 (150-400) K/uL MPV 11.40 (7.40-12.00) fL Neut % (Auto) 74.2 (48.0-80.0) % Lymph % (Auto) 17.8 (16.0-40.0) % [place] % (Auto) 6.4 (0.0-15.0) % Eos % (Auto) 0.9 (0.0-7.0) % Baso % (Auto) 0.7 (0.0-1.5) % Neut # (Auto) 4.3 (1.4-5.7) K/uL Lymph # (Auto) 1.0 (0.6-2.4) K/uL [place] # (Auto) 0.4 (0.0-0.8) K/uL Eos # (Auto) 0.1 (0.0-0.7) K/uL Baso # (Auto) 0.0 (0.0-0.1) K/uL Nucleated RBC % 0.0 /100WBC Nucleated RBCs # 0 K/uL Sodium (136-145) mmol/L Potassium (3.5-5.1) mmol/L Chloride (98-107) mmol/L Carbon Dioxide (21.0-32.0) mmol/L BUN (7.0-18.0) mg/dL Creatinine (0.6-1.0) mg/dL Est Cr Clr Drug Dosing mL/min Estimated GFR (MDRD) ml/min Glucose (74-106) mg/dL Calcium (8.5-10.1) mg/dL Total Bilirubin (0.2-1.0) mg/dL AST (15-37) IU/L ALT (14-63) IU/L Alkaline Phosphatase (46-116) U/L Total Protein (6.4-8.2) g/dL Albumin (3.4-5.0) g/dL Globulin (2.6-4.0) g/dL Albumin/Globulin Ratio (0.9-1.6) Vitamin B12 1157 H (193-986) pg/mL Hepatitis A IgM Ab Negative (Negative) Hep Bs Antigen Negative (Negative) Hep B Core IgM Ab Negative (Negative) Hepatitis C Antibody <0.1 (0.0-0.9) s/co ratio 10/08/20 Range/Units 06:38 WBC (4.0-11.0) K/uL RBC (4.30-5.90) M/uL Hgb (12.0-16.0) g/dL Hct (36.0-46.0) % MCV (80.0-98.0) fL MCH (27.0-32.0) pg MCHC (31.0-37.0) g/dL RDW Std Deviation (28.0-62.0) fl RDW Coeff of Blue (11.0-15.0) % Plt Count (150-400) K/uL MPV (7.40-12.00) fL Neut % (Auto) (48.0-80.0) % Lymph % (Auto) (16.0-40.0) % [place] % (Auto) (0.0-15.0) % Eos % (Auto) (0.0-7.0) % Baso % (Auto) (0.0-1.5) % Neut # (Auto) (1.4-5.7) K/uL Lymph # (Auto) (0.6-2.4) K/uL [place] # (Auto) (0.0-0.8) K/uL Eos # (Auto) (0.0-0.7) K/uL Baso # (Auto) (0.0-0.1) K/uL Nucleated RBC % /100WBC Nucleated RBCs # K/uL Sodium 139 (136-145) mmol/L Potassium 3.2 L (3.5-5.1) mmol/L Chloride 101 (98-107) mmol/L Carbon Dioxide 28.0 (21.0-32.0) mmol/L BUN 5 L (7.0-18.0) mg/dL Creatinine 0.7 (0.6-1.0) mg/dL Est Cr Clr Drug Dosing 78.27 mL/min Estimated GFR (MDRD) > 60.0 ml/min Glucose 69 L (74-106) mg/dL Calcium 8.1 L (8.5-10.1) mg/dL Total Bilirubin 3.3 H (0.2-1.0) mg/dL AST 80 H (15-37) IU/L ALT 93 H (14-63) IU/L Alkaline Phosphatase 147 H (46-116) U/L Total Protein 5.1 L (6.4-8.2) g/dL Albumin 2.2 L (3.4-5.0) g/dL Globulin 2.9 (2.6-4.0) g/dL Albumin/Globulin Ratio 0.8 L (0.9-1.6) Vitamin B12 (193-986) pg/mL Hepatitis A IgM Ab (Negative) Hep Bs Antigen (Negative) Hep B Core IgM Ab (Negative) Hepatitis C Antibody (0.0-0.9) s/co ratio Donny Results Last 24 Hours: Microbiology 10/05/20 16:51 Aerobic Blood Culture - Preliminary Blood - Venous - Lab Draw NO GROWTH AFTER 3 DAYS Anaerobic Blood Culture - Final 10/05/20 16:08 Aerobic Blood Culture - Preliminary Blood - Venous NO GROWTH AFTER 3 DAYS Anaerobic Blood Culture - Final 10/05/20 18:20 Gram Stain - Final Peritoneal Fluid Body Fluid Culture - Final NO GROWTH AFTER 3 DAYS Med Orders - Current: Current Medications Discontinued Medications Albuterol/Ipratropium (Duoneb 3.0-0.5 Mg/3 Ml) 3 ml NEB Q4HRRT PRN PRN Reason: Shortness Of Breath/wheezing Butner Butter/Phenylephrine (Preparation H Supp) 1 each RECTAL ONETIME ONE Stop: 10/06/20 00:05 Last Admin: 10/06/20 04:49 Dose: 1 each Documented by: Docusate Sodium (Colace) 100 mg PO BID PRN PRN Reason: Constipation Last Admin: 10/07/20 23:52 Dose: 100 mg Documented by: Folic Acid (Folic Acid) 1 mg PO DAILY [facility] Last Admin: 10/08/20 09:02 Dose: 1 mg Documented by: Furosemide (Lasix) 20 mg PO ONETIME ONE Stop: 10/06/20 00:11 Last Admin: 10/06/20 00:50 Dose: Not Given Documented by: Heparin Sodium (Porcine) (Heparin Sodium) 5,000 units SUBCUT Q8H [facility] Last Admin: 10/05/20 21:46 Dose: 5,000 units Documented by: Heparin Sodium (Porcine) (Heparin Sodium) 5,000 units SUBCUT Q8H [facility] Last Admin: 10/08/20 12:53 Dose: 5,000 units Documented by: Hydromorphone HCl (Dilaudid) 1 mg IVPUSH ONETIME ONE Stop: 10/05/20 16:46 Last Admin: 10/05/20 17:38 Dose: 1 mg Documented by: Hydromorphone HCl (Dilaudid) 1 mg IVPUSH Q4H PRN PRN Reason: Pain Last Admin: 10/08/20 11:51 Dose: 1 mg Documented by: Sodium Chloride (Normal Saline) 1,000 mls @ 999 mls/hr IV BOLUS ONE Stop: 10/05/20 15:12 Last Admin: 10/05/20 15:38 Dose: 999 mls/hr Documented by: Piperacillin Sod/Tazobactam (Sod 4.5 gm/ Sodium Chloride) 100 mls @ 100 mls/hr IV ONETIME ONE Stop: 10/05/20 17:46 Last Admin: 10/05/20 17:26 Dose: 100 mls/hr Documented by: Piperacillin Sod/Tazobactam (Sod 4.5 gm/ Sodium Chloride) 100 mls @ 100 mls/hr IV Q8H [facility] Last Admin: 10/08/20 09:04 Dose: 100 mls/hr Documented by: Pantoprazole Sodium 40 mg/ (Sodium Chloride) 10 mls @ 300 mls/hr IV DAILY [facility] Last Admin: 10/08/20 09:03 Dose: 300 mls/hr Documented by: Magnesium Sulfate (Magnesium Sulfate In Water Premix) 2 gm in 50 mls @ 50 mls/hr IV ONETIME ONE Stop: 10/06/20 12:08 Last Admin: 10/06/20 11:51 Dose: 50 mls/hr Documented by: Ibuprofen (Motrin) 400 mg PO ONETIME ONE Stop: 10/07/20 03:15 Last Admin: 10/07/20 03:41 Dose: 400 mg Documented by: Ibuprofen (Motrin) 200 mg PO Q4H PRN PRN Reason: Headache/Pain Last Admin: 10/07/20 09:52 Dose: 200 mg Documented by: Ibuprofen (Motrin) 200 mg PO Q8H PRN PRN Reason: Headache/Pain Iopamidol (Isovue Multipack-370 (76%)) 56 ml IVPUSH ONETIME ONE Stop: 10/05/20 15:41 Last Admin: 10/05/20 15:40 Dose: 56 ml Documented by: Lactulose (Chronulac) 10 gm PO ONETIME ONE Stop: 10/05/20 21:22 Last Admin: 10/05/20 21:45 Dose: 10 gm Documented by: Lactulose (Chronulac) 10 gm PO ONETIME ONE Stop: 10/08/20 12:20 Last Admin: 10/08/20 12:53 Dose: 10 gm Documented by: Lidocaine HCl (Xylocaine-Mpf 1%) 10 ml INJECT ONETIME ONE Stop: 10/05/20 15:37 Last Admin: 10/05/20 17:46 Dose: Not Given Documented by: Lidocaine HCl (Xylocaine-Mpf 1%) 10 ml INJECT ONETIME ONE Stop: 10/05/20 16:07 Last Admin: 10/05/20 17:46 Dose: 10 ml Documented by: Lorazepam (Ativan) 1 mg IVPUSH ONETIME ONE Stop: 10/05/20 16:46 Last Admin: 10/05/20 17:38 Dose: 1 mg Documented by: Ondansetron HCl (Zofran) 4 mg IVPUSH ONETIME ONE Stop: 10/05/20 16:47 Last Admin: 10/05/20 17:37 Dose: 4 mg Documented by: Ondansetron HCl (Zofran) 4 mg IVPUSH Q4H PRN PRN Reason: Nausea/Vomiting Last Admin: 10/08/20 11:50 Dose: 4 mg Documented by: Pantoprazole Sodium (Protonix) 40 mg PO ACBREAKFAST [facility] Potassium Chloride (Klor-Con M20) 40 meq PO ONETIME ONE Stop: 10/05/20 15:07 Last Admin: 10/05/20 15:41 Dose: 40 meq Documented by: Potassium Chloride (Potassium Chloride) 20 meq PO TID [facility] Stop: 10/07/20 14:01 Last Admin: 10/07/20 13:52 Dose: 20 meq Documented by: Potassium Chloride (Klor-Con M20) 40 meq PO ONETIME ONE Stop: 10/07/20 20:41 Last Admin: 10/08/20 09:43 Dose: Not Given Documented by: Potassium Chloride (Klor-Con M20) 40 meq PO ONETIME ONE Stop: 10/07/20 23:31 Last Admin: 10/07/20 23:26 Dose: 40 meq Documented by: Potassium Chloride (Klor-Con M20) 40 meq PO ONETIME ONE Stop: 10/08/20 08:12 Last Admin: 10/08/20 09:03 Dose: 40 meq Documented by: Spironolactone (Aldactone) 50 mg PO ONETIME ONE Stop: 10/06/20 00:11 Last Admin: 10/06/20 00:54 Dose: 50 mg Documented by: Thiamine HCl (Vitamin B-1) 100 mg PO BEDTIME [facility] Last Admin: 10/07/20 20:50 Dose: 100 mg Documented by: - Problem List & Annotations (1) Ascites SNOMED Code(s): 382280814 Code(s): R18.8 - OTHER ASCITES Status: Acute Qualifiers: Ascites type: other type Qualified Code(s): R18.8 - Other ascites (2) Hepatitis SNOMED Code(s): 120810386 Code(s): K75.9 - INFLAMMATORY LIVER DISEASE, UNSPECIFIED Status: Acute (3) Hypokalemia SNOMED Code(s): 19494689 Code(s): E87.6 - HYPOKALEMIA Status: Acute (4) Pancolitis SNOMED Code(s): 022053770 Code(s): K51.00 - ULCERATIVE (CHRONIC) PANCOLITIS WITHOUT COMPLICATIONS Status: Acute (5) Transaminitis SNOMED Code(s): 461321522, 285247437 Code(s): R74.01 - ELEVATION OF LEVELS OF LIVER TRANSAMINASE LEVELS Status: Acute (6) Abnormal liver function test SNOMED Code(s): 419152038 Code(s): R94.5 - ABNORMAL RESULTS OF LIVER FUNCTION STUDIES Status: Acute (7) Alcoholic hepatitis SNOMED Code(s): 157701559 Code(s): K70.10 - ALCOHOLIC HEPATITIS WITHOUT ASCITES Status: Acute - Plan Plan:: I have seen and evaluated the patient and agree with the residents note unless specified in my note
[2020-10-08] MEDS: Heparin Sodium 5,000 Units/ML Vial SUBCUT SCH ×2 (06:10→12:53)
[2020-10-08] MEDS: Ondansetron 4 MG/2 ML SDV IVPUSH PRN ×2 (06:11→11:50)
[2020-10-08] MEDS: HYDROmorphone 1 MG/ML Syringe IVPUSH PRN ×2 (06:34→11:51)
[2020-10-08 07:14] LABS: BLOOD UREA NITROGEN,BUN 5 mg/dL (7.0-18.0); CHLORIDE,CL 101 mmol/L (98-107); POTASSIUM,K 3.2 mmol/L (3.5-5.1); SODIUM,NA 139 mmol/L (136-145)
[2020-10-08 07:25] LABS: GLUCOSE RANDOM 69 mg/dL (74-106)
[2020-10-08] MEDS ORDERED: Potassium Chloride 20 MEQ Tab.ER PO ONE (08:11)
[2020-10-08] MEDS: Folic Acid 1 MG Tab PO SCH (09:02)
[2020-10-08] MEDS: Pantoprazole 40 MG in Sodium Chloride 0.9% 10 ML IV SCH (09:03)
[2020-10-08] MEDS: Piperacillin/Tazobactam 4.5 GM in Sodium Chloride 0.9% 100 ML IV SCH (09:04)
[2020-10-08] MEDS ORDERED: Lactulose Soln 10 GM/15 ML 15 ML UD Cup PO ONE (12:19)
--- NOTE | 2020-10-08 17:40 | PCM.DCSUM1 ---
<Marcos Grajeda - Last Filed: 10/08/20 18:00> Discharge Summary - Hospital Course Free Text/Narrative:: 35-year-old female admitted for pancolitis. Past medical history includes alcohol dependence and GERD. Patient presented to the ED with concerns of new alcoholic liver disease, increasing abdominal distention, and generalized abdominal pain specifically right upper quadrant. Patient states that she has been having symptoms for the last 2 to 3 days. Patient states that she has known liver issues due to her chronic alcohol use, for which she follows with her PCP, but hasn't seen a GI/educational audiologist yet because she was diagnosed with covid few weeks ago. Patient denies any recent substantial alcohol consumption but states that she had 1 alcoholic beverage 2 days prior to admission. Ultrasound abdomen findings, liver parenchyma echogenic with hepatic steatosis no biliary dilatation, moderate ascites. No cholecystitis, hepatomegaly and hepatic steatosis, moderate ascites. Abdomen pelvis CT impression pancolitis. Patient treated with Zosyn, diet was advanced to soft as tolerated, Dilaudid for abdominal pain, Zofran for nausea. Patient stable throughout admission, experience bouts of hypokalemia which was replaced with oral potassium supplementation. Transaminitis on discharge AST, 80 ALT, 93 alkaline phosphatase 147. Patient also stated mild right upper quadrant tenderness and constipation upon discharge. Patient given the choice to stay one more night if needed, patient stated that she would like to go home. Patient discharged on 3 days of Flag Simonayl. Prescribed lactulose and advised to follow a healthy liver diet (low protein), prescribed tramadol for pain, Zofran for nausea. Patient to follow up outpatient with educational audiologist, PCP, and will review any medications with PCP as needed. - Discharge Data Discharge Date: 10/08/20 Discharge Disposition: Home, Self-Care 01 Condition: Stable - Referral to Home Health Primary Care Physician: Amber Goldsmith NP - Discharge Diagnosis/Problem(s) (1) Alcoholic hepatitis SNOMED Code(s): 605676213 ICD Code: K70.10 - ALCOHOLIC HEPATITIS WITHOUT ASCITES Status: Acute (2) Hepatitis SNOMED Code(s): 578641812 ICD Code: K75.9 - INFLAMMATORY LIVER DISEASE, UNSPECIFIED Status: Acute (3) Transaminitis SNOMED Code(s): 014534663, 254409630 ICD Code: R74.01 - ELEVATION OF LEVELS OF LIVER TRANSAMINASE LEVELS Status: Acute - Patient Instructions Diet, Other: LOW PROTEIN DIET Activity: As Tolerated Driving: Do Not Drive Showering/Bathing: May Shower Notify Provider of: Fever, Increased Pain, Swelling and Redness, Drainage, Nausea and/or Vomiting Other/Special Instructions: Follow up with PCP, [employer]. Take medications as prescribed. Discuss Lactulose with PCP regarding specific daily dosage - Discharge Plan Prescriptions/Med Rec: Ciprofloxacin HCl [Cipro] 500 mg PO BID 3 Days #6 tablet metroNIDAZOLE [Flagyl] 500 mg PO Q8H 3 Days #9 tab Lactulose 10 gm PO DAILY #300 ml traMADol [Ultram] 50 mg PO TID PRN #18 tab PRN Reason: Pain (Severe 7-10) Ondansetron [Zofran] 4 mg PO Q8H PRN #18 tab PRN Reason: Nausea/Vomiting Home Medications: Home Meds Magnesium 30 mg PO DAILY 10/05/20 [History] Zinc 50 mg PO DAILY 10/05/20 [History] Mirtazapine 15 mg PO BEDTIME 10/06/20 [History] Omeprazole 20 mg PO ACBREAKFAST 10/06/20 [History] Ciprofloxacin HCl [Cipro] 500 mg PO BID 3 Days #6 tablet 10/08/20 [Rx] Lactulose 10 gm PO DAILY #300 ml 10/08/20 [Rx] Ondansetron [Zofran] 4 mg PO Q8H PRN #18 tab 10/08/20 [Rx] metroNIDAZOLE [Flagyl] 500 mg PO Q8H 3 Days #9 tab 10/08/20 [Rx] traMADol [Ultram] 50 mg PO TID PRN #18 tab 10/08/20 [Rx] Patient Handouts: Paracentesis, Care After, Hypokalemia, Tramadol tablets, Ascites, Lactulose oral solution, Ciprofloxacin tablets, Metronidazole tablets or capsules Referrals: Amber Goldsmith NP [Primary Care Provider] - 10/14/20 10:15 am - Discharge Summary/Plan Comment DC Time >30 min.: Yes - Review of Systems General: Denies: Fever, Chills Pulmonary: Denies: Shortness of Breath Cardiovascular: Denies: Chest Pain, Dyspnea on Exertion Gastrointestinal: Reports: Abdominal Pain, Constipation. Denies: Diarrhea, Nausea, Vomiting Neurological: Denies: Confusion, Dizziness, Headache - Patient Data Vitals - Most Recent: Last Vital Signs Temp 96.9 F 10/08/20 07:30 Pulse 95 10/08/20 07:30 Resp 16 10/08/20 04:00 BP 95/65 10/08/20 07:30 Pulse Ox 98 10/08/20 07:30 Weight - Most Recent: 44.622 kg I&O - Last 24 hours: Intake & Output 10/08/20 10/08/20 10/08/20 06:59 14:59 22:59 Intake Total 948 860 Output Total 651 350 Balance 297 510 Lab Results - Last 24 hrs: Laboratory Results - last 24 hr 10/06/20 10/07/20 10/08/20 Range/Units 05:53 08:35 06:38 WBC 5.78 (4.0-11.0) K/uL RBC 2.53 L (4.30-5.90) M/uL Hgb 9.9 L (12.0-16.0) g/dL Hct 28.9 L (36.0-46.0) % MCV 114.2 H (80.0-98.0) fL MCH 39.1 H (27.0-32.0) pg MCHC 34.3 (31.0-37.0) g/dL RDW Std Deviation 54.9 (28.0-62.0) fl RDW Coeff of Blue 13 (11.0-15.0) % Plt Count 170 (150-400) K/uL MPV 11.40 (7.40-12.00) fL Neut % (Auto) 74.2 (48.0-80.0) % Lymph % (Auto) 17.8 (16.0-40.0) % [place] % (Auto) 6.4 (0.0-15.0) % Eos % (Auto) 0.9 (0.0-7.0) % Baso % (Auto) 0.7 (0.0-1.5) % Neut # (Auto) 4.3 (1.4-5.7) K/uL Lymph # (Auto) 1.0 (0.6-2.4) K/uL [place] # (Auto) 0.4 (0.0-0.8) K/uL Eos # (Auto) 0.1 (0.0-0.7) K/uL Baso # (Auto) 0.0 (0.0-0.1) K/uL Nucleated RBC % 0.0 /100WBC Nucleated RBCs # 0 K/uL Sodium (136-145) mmol/L Potassium (3.5-5.1) mmol/L Chloride (98-107) mmol/L Carbon Dioxide (21.0-32.0) mmol/L BUN (7.0-18.0) mg/dL Creatinine (0.6-1.0) mg/dL Est Cr Clr Drug Dosing mL/min Estimated GFR (MDRD) ml/min Glucose (74-106) mg/dL Calcium (8.5-10.1) mg/dL Total Bilirubin (0.2-1.0) mg/dL AST (15-37) IU/L ALT (14-63) IU/L Alkaline Phosphatase (46-116) U/L Total Protein (6.4-8.2) g/dL Albumin (3.4-5.0) g/dL Globulin (2.6-4.0) g/dL Albumin/Globulin Ratio (0.9-1.6) Vitamin B12 1157 H (193-986) pg/mL Hepatitis A IgM Ab Negative (Negative) Hep Bs Antigen Negative (Negative) Hep B Core IgM Ab Negative (Negative) Hepatitis C Antibody <0.1 (0.0-0.9) s/co ratio 10/08/20 Range/Units 06:38 WBC (4.0-11.0) K/uL RBC (4.30-5.90) M/uL Hgb (12.0-16.0) g/dL Hct (36.0-46.0) % MCV (80.0-98.0) fL MCH (27.0-32.0) pg MCHC (31.0-37.0) g/dL RDW Std Deviation (28.0-62.0) fl RDW Coeff of Blue (11.0-15.0) % Plt Count (150-400) K/uL MPV (7.40-12.00) fL Neut % (Auto) (48.0-80.0) % Lymph % (Auto) (16.0-40.0) % [place] % (Auto) (0.0-15.0) % Eos % (Auto) (0.0-7.0) % Baso % (Auto) (0.0-1.5) % Neut # (Auto) (1.4-5.7) K/uL Lymph # (Auto) (0.6-2.4) K/uL [place] # (Auto) (0.0-0.8) K/uL Eos # (Auto) (0.0-0.7) K/uL Baso # (Auto) (0.0-0.1) K/uL Nucleated RBC % /100WBC Nucleated RBCs # K/uL Sodium 139 (136-145) mmol/L Potassium 3.2 L (3.5-5.1) mmol/L Chloride 101 (98-107) mmol/L Carbon Dioxide 28.0 (21.0-32.0) mmol/L BUN 5 L (7.0-18.0) mg/dL Creatinine 0.7 (0.6-1.0) mg/dL Est Cr Clr Drug Dosing 78.27 mL/min Estimated GFR (MDRD) > 60.0 ml/min Glucose 69 L (74-106) mg/dL Calcium 8.1 L (8.5-10.1) mg/dL Total Bilirubin 3.3 H (0.2-1.0) mg/dL AST 80 H (15-37) IU/L ALT 93 H (14-63) IU/L Alkaline Phosphatase 147 H (46-116) U/L Total Protein 5.1 L (6.4-8.2) g/dL Albumin 2.2 L (3.4-5.0) g/dL Globulin 2.9 (2.6-4.0) g/dL Albumin/Globulin Ratio 0.8 L (0.9-1.6) Vitamin B12 (193-986) pg/mL Hepatitis A IgM Ab (Negative) Hep Bs Antigen (Negative) Hep B Core IgM Ab (Negative) Hepatitis C Antibody (0.0-0.9) s/co ratio IAN Results - Last 24 hrs: Microbiology 10/05/20 16:51 Aerobic Blood Culture - Preliminary Blood - Venous - Lab Draw NO GROWTH AFTER 3 DAYS Anaerobic Blood Culture - Final 10/05/20 16:08 Aerobic Blood Culture - Preliminary Blood - Venous NO GROWTH AFTER 3 DAYS Anaerobic Blood Culture - Final 10/05/20 18:20 Gram Stain - Final Peritoneal Fluid Body Fluid Culture - Final NO GROWTH AFTER 3 DAYS Med Orders - Current: Current Medications Discontinued Medications Albuterol/Ipratropium (Duoneb 3.0-0.5 Mg/3 Ml) 3 ml NEB Q4HRRT PRN PRN Reason: Shortness Of Breath/wheezing Wilkinson Butter/Phenylephrine (Preparation H Supp) 1 each RECTAL ONETIME ONE Stop: 10/06/20 00:05 Last Admin: 10/06/20 04:49 Dose: 1 each Documented by: Docusate Sodium (Colace) 100 mg PO BID PRN PRN Reason: Constipation Last Admin: 10/07/20 23:52 Dose: 100 mg Documented by: Folic Acid (Folic Acid) 1 mg PO DAILY [facility] Last Admin: 10/08/20 09:02 Dose: 1 mg Documented by: Furosemide (Lasix) 20 mg PO ONETIME ONE Stop: 10/06/20 00:11 Last Admin: 10/06/20 00:50 Dose: Not Given Documented by: Heparin Sodium (Porcine) (Heparin Sodium) 5,000 units SUBCUT Q8H [facility] Last Admin: 10/05/20 21:46 Dose: 5,000 units Documented by: Heparin Sodium (Porcine) (Heparin Sodium) 5,000 units SUBCUT Q8H [facility] Last Admin: 10/08/20 12:53 Dose: 5,000 units Documented by: Hydromorphone HCl (Dilaudid) 1 mg IVPUSH ONETIME ONE Stop: 10/05/20 16:46 Last Admin: 10/05/20 17:38 Dose: 1 mg Documented by: Hydromorphone HCl (Dilaudid) 1 mg IVPUSH Q4H PRN PRN Reason: Pain Last Admin: 10/08/20 11:51 Dose: 1 mg Documented by: Sodium Chloride (Normal Saline) 1,000 mls @ 999 mls/hr IV BOLUS ONE Stop: 10/05/20 15:12 Last Admin: 10/05/20 15:38 Dose: 999 mls/hr Documented by: Piperacillin Sod/Tazobactam (Sod 4.5 gm/ Sodium Chloride) 100 mls @ 100 mls/hr IV ONETIME ONE Stop: 10/05/20 17:46 Last Admin: 10/05/20 17:26 Dose: 100 mls/hr Documented by: Piperacillin Sod/Tazobactam (Sod 4.5 gm/ Sodium Chloride) 100 mls @ 100 mls/hr IV Q8H DENISE Last Admin: 10/08/20 09:04 Dose: 100 mls/hr Documented by: Pantoprazole Sodium 40 mg/ (Sodium Chloride) 10 mls @ 300 mls/hr IV DAILY DENISE Last Admin: 10/08/20 09:03 Dose: 300 mls/hr Documented by: Magnesium Sulfate (Magnesium Sulfate In Water Premix) 2 gm in 50 mls @ 50 mls/hr IV ONETIME ONE Stop: 10/06/20 12:08 Last Admin: 10/06/20 11:51 Dose: 50 mls/hr Documented by: Ibuprofen (Motrin) 400 mg PO ONETIME ONE Stop: 10/07/20 03:15 Last Admin: 10/07/20 03:41 Dose: 400 mg Documented by: Ibuprofen (Motrin) 200 mg PO Q4H PRN PRN Reason: Headache/Pain Last Admin: 10/07/20 09:52 Dose: 200 mg Documented by: Ibuprofen (Motrin) 200 mg PO Q8H PRN PRN Reason: Headache/Pain Iopamidol (Isovue Multipack-370 (76%)) 56 ml IVPUSH ONETIME ONE Stop: 10/05/20 15:41 Last Admin: 10/05/20 15:40 Dose: 56 ml Documented by: Lactulose (Chronulac) 10 gm PO ONETIME ONE Stop: 10/05/20 21:22 Last Admin: 10/05/20 21:45 Dose: 10 gm Documented by: Lactulose (Chronulac) 10 gm PO ONETIME ONE Stop: 10/08/20 12:20 Last Admin: 10/08/20 12:53 Dose: 10 gm Documented by: Lidocaine HCl (Xylocaine-Mpf 1%) 10 ml INJECT ONETIME ONE Stop: 10/05/20 15:37 Last Admin: 10/05/20 17:46 Dose: Not Given Documented by: Lidocaine HCl (Xylocaine-Mpf 1%) 10 ml INJECT ONETIME ONE Stop: 10/05/20 16:07 Last Admin: 10/05/20 17:46 Dose: 10 ml Documented by: Lorazepam (Ativan) 1 mg IVPUSH ONETIME ONE Stop: 10/05/20 16:46 Last Admin: 10/05/20 17:38 Dose: 1 mg Documented by: Ondansetron HCl (Zofran) 4 mg IVPUSH ONETIME ONE Stop: 10/05/20 16:47 Last Admin: 10/05/20 17:37 Dose: 4 mg Documented by: Ondansetron HCl (Zofran) 4 mg IVPUSH Q4H PRN PRN Reason: Nausea/Vomiting Last Admin: 10/08/20 11:50 Dose: 4 mg Documented by: Pantoprazole Sodium (Protonix) 40 mg PO ACBREAKFAST [facility] Potassium Chloride (Klor-Con M20) 40 meq PO ONETIME ONE Stop: 10/05/20 15:07 Last Admin: 10/05/20 15:41 Dose: 40 meq Documented by: Potassium Chloride (Potassium Chloride) 20 meq PO TID [facility] Stop: 10/07/20 14:01 Last Admin: 10/07/20 13:52 Dose: 20 meq Documented by: Potassium Chloride (Klor-Con M20) 40 meq PO ONETIME ONE Stop: 10/07/20 20:41 Last Admin: 10/08/20 09:43 Dose: Not Given Documented by: Potassium Chloride (Klor-Con M20) 40 meq PO ONETIME ONE Stop: 10/07/20 23:31 Last Admin: 10/07/20 23:26 Dose: 40 meq Documented by: Potassium Chloride (Klor-Con M20) 40 meq PO ONETIME ONE Stop: 10/08/20 08:12 Last Admin: 10/08/20 09:03 Dose: 40 meq Documented by: Spironolactone (Aldactone) 50 mg PO ONETIME ONE Stop: 10/06/20 00:11 Last Admin: 10/06/20 00:54 Dose: 50 mg Documented by: Thiamine HCl (Vitamin B-1) 100 mg PO BEDTIME [facility] Last Admin: 10/07/20 20:50 Dose: 100 mg Documented by: - Exam General: Reports: Alert, Oriented Lungs: Reports: Clear to Auscultation, Normal Respiratory Effort Cardiovascular: Reports: Regular Rate, Regular Rhythm GI/Abdominal Exam: Normal Bowel Sounds, Soft, Tender (RUQ) Extremities: No Pedal Edema <Manuel,Hooria - Last Filed: 10/12/20 19:02> Discharge Summary - Hospital Course Free Text/Narrative:: .' I have seen and evaluated the patient. I have discussed findings and treatment plan with resident. I agree with the assessment and plan in the following note. - Referral to Home Health Primary Care Physician: Amber Goldsmith NP - Discharge Diagnosis/Problem(s) (1) Ascites SNOMED Code(s): 933751336 ICD Code: R18.8 - OTHER ASCITES Status: Acute Qualifiers: Ascites type: other type Qualified Code(s): R18.8 - Other ascites (2) Hepatitis SNOMED Code(s): 253552640 ICD Code: K75.9 - INFLAMMATORY LIVER DISEASE, UNSPECIFIED Status: Acute (3) Hypokalemia SNOMED Code(s): 77997435 ICD Code: E87.6 - HYPOKALEMIA Status: Acute (4) Pancolitis SNOMED Code(s): 813316233 ICD Code: K51.00 - ULCERATIVE (CHRONIC) PANCOLITIS WITHOUT COMPLICATIONS Status: Acute (5) Transaminitis SNOMED Code(s): 390501568, 540345930 ICD Code: R74.01 - ELEVATION OF LEVELS OF LIVER TRANSAMINASE LEVELS Status: Acute (6) Abnormal liver function test SNOMED Code(s): 344714130 ICD Code: R94.5 - ABNORMAL RESULTS OF LIVER FUNCTION STUDIES Status: Acute (7) Alcoholic hepatitis SNOMED Code(s): 396611846 ICD Code: K70.10 - ALCOHOLIC HEPATITIS WITHOUT ASCITES Status: Acute - Patient Data Vitals - Most Recent: Last Vital Signs Temp 36.1 C 10/08/20 07:30 Pulse 95 10/08/20 07:30 Resp 16 10/08/20 04:00 BP 95/65 10/08/20 07:30 Pulse Ox 98 10/08/20 07:30 Med Orders - Current: Current Medications Discontinued Medications Albuterol/Ipratropium (Duoneb 3.0-0.5 Mg/3 Ml) 3 ml NEB Q4HRRT PRN PRN Reason: Shortness Of Breath/wheezing [place] Butter/Phenylephrine (Preparation H Supp) 1 each RECTAL ONETIME ONE Stop: 10/06/20 00:05 Last Admin: 10/06/20 04:49 Dose: 1 each Documented by: Docusate Sodium (Colace) 100 mg PO BID PRN PRN Reason: Constipation Last Admin: 10/07/20 23:52 Dose: 100 mg Documented by: Folic Acid (Folic Acid) 1 mg PO DAILY [facility] Last Admin: 10/08/20 09:02 Dose: 1 mg Documented by: Furosemide (Lasix) 20 mg PO ONETIME ONE Stop: 10/06/20 00:11 Last Admin: 10/06/20 00:50 Dose: Not Given Documented by: Heparin Sodium (Porcine) (Heparin Sodium) 5,000 units SUBCUT Q8H [facility] Last Admin: 10/05/20 21:46 Dose: 5,000 units Documented by: Heparin Sodium (Porcine) (Heparin Sodium) 5,000 units SUBCUT Q8H [facility] Last Admin: 10/08/20 12:53 Dose: 5,000 units Documented by: Hydromorphone HCl (Dilaudid) 1 mg IVPUSH ONETIME ONE Stop: 10/05/20 16:46 Last Admin: 10/05/20 17:38 Dose: 1 mg Documented by: Hydromorphone HCl (Dilaudid) 1 mg IVPUSH Q4H PRN PRN Reason: Pain Last Admin: 10/08/20 11:51 Dose: 1 mg Documented by: Sodium Chloride (Normal Saline) 1,000 mls @ 999 mls/hr IV BOLUS ONE Stop: 10/05/20 15:12 Last Admin: 10/05/20 15:38 Dose: 999 mls/hr Documented by: Piperacillin Sod/Tazobactam (Sod 4.5 gm/ Sodium Chloride) 100 mls @ 100 mls/hr IV ONETIME ONE Stop: 10/05/20 17:46 Last Admin: 10/05/20 17:26 Dose: 100 mls/hr Documented by: Piperacillin Sod/Tazobactam (Sod 4.5 gm/ Sodium Chloride) 100 mls @ 100 mls/hr IV Q8H [facility] Last Admin: 10/08/20 09:04 Dose: 100 mls/hr Documented by: Pantoprazole Sodium 40 mg/ (Sodium Chloride) 10 mls @ 300 mls/hr IV DAILY [facility] Last Admin: 10/08/20 09:03 Dose: 300 mls/hr Documented by: Magnesium Sulfate (Magnesium Sulfate In Water Premix) 2 gm in 50 mls @ 50 mls/hr IV ONETIME ONE Stop: 10/06/20 12:08 Last Admin: 10/06/20 11:51 Dose: 50 mls/hr Documented by: Ibuprofen (Motrin) 400 mg PO ONETIME ONE Stop: 10/07/20 03:15 Last Admin: 10/07/20 03:41 Dose: 400 mg Documented by: Ibuprofen (Motrin) 200 mg PO Q4H PRN PRN Reason: Headache/Pain Last Admin: 10/07/20 09:52 Dose: 200 mg Documented by: Ibuprofen (Motrin) 200 mg PO Q8H PRN PRN Reason: Headache/Pain Iopamidol (Isovue Multipack-370 (76%)) 56 ml IVPUSH ONETIME ONE Stop: 10/05/20 15:41 Last Admin: 10/05/20 15:40 Dose: 56 ml Documented by: Lactulose (Chronulac) 10 gm PO ONETIME ONE Stop: 10/05/20 21:22 Last Admin: 10/05/20 21:45 Dose: 10 gm Documented by: Lactulose (Chronulac) 10 gm PO ONETIME ONE Stop: 10/08/20 12:20 Last Admin: 10/08/20 12:53 Dose: 10 gm Documented by: Lidocaine HCl (Xylocaine-Mpf 1%) 10 ml INJECT ONETIME ONE Stop: 10/05/20 15:37 Last Admin: 10/05/20 17:46 Dose: Not Given Documented by: Lidocaine HCl (Xylocaine-Mpf 1%) 10 ml INJECT ONETIME ONE Stop: 10/05/20 16:07 Last Admin: 10/05/20 17:46 Dose: 10 ml Documented by: Lorazepam (Ativan) 1 mg IVPUSH ONETIME ONE Stop: 10/05/20 16:46 Last Admin: 10/05/20 17:38 Dose: 1 mg Documented by: Ondansetron HCl (Zofran) 4 mg IVPUSH ONETIME ONE Stop: 10/05/20 16:47 Last Admin: 10/05/20 17:37 Dose: 4 mg Documented by: Ondansetron HCl (Zofran) 4 mg IVPUSH Q4H PRN PRN Reason: Nausea/Vomiting Last Admin: 10/08/20 11:50 Dose: 4 mg Documented by: Pantoprazole Sodium (Protonix) 40 mg PO ACBREAKFAST [facility] Potassium Chloride (Klor-Con M20) 40 meq PO ONETIME ONE Stop: 10/05/20 15:07 Last Admin: 10/05/20 15:41 Dose: 40 meq Documented by: Potassium Chloride (Potassium Chloride) 20 meq PO TID [facility]ISE Stop: 10/07/20 14:01 Last Admin: 10/07/20 13:52 Dose: 20 meq Documented by: Potassium Chloride (Klor-Con M20) 40 meq PO ONETIME ONE Stop: 10/07/20 20:41 Last Admin: 10/08/20 09:43 Dose: Not Given Documented by: Potassium Chloride (Klor-Con M20) 40 meq PO ONETIME ONE Stop: 10/07/20 23:31 Last Admin: 10/07/20 23:26 Dose: 40 meq Documented by: Potassium Chloride (Klor-Con M20) 40 meq PO ONETIME ONE Stop: 10/08/20 08:12 Last Admin: 10/08/20 09:03 Dose: 40 meq Documented by: Spironolactone (Aldactone) 50 mg PO ONETIME ONE Stop: 10/06/20 00:11 Last Admin: 10/06/20 00:54 Dose: 50 mg Documented by: Thiamine HCl (Vitamin B-1) 100 mg PO BEDTIME [facility] Last Admin: 10/07/20 20:50 Dose: 100 mg Documented by:
== END 2020-10-08 15:30 | disposition home or self-care (01) ==
LOC: MW.ED 13:47 → MW.MS 20:51
PROVIDERS: ADMIT Student in an Organized Health Care Education/Training Program; ATTEND Student in an Organized Health Care Education/Training Program
DX: K70.11 Alcoholic hepatitis with ascites (principal); K21.9 Gastro-esophageal reflux disease without esophagitis; I25.10 Atherosclerotic heart disease of native coronary artery without angina pectoris; E78.00 Pure hypercholesterolemia, unspecified; I10 Essential (primary) hypertension; E11.9 Type 2 diabetes mellitus without complications; F41.9 Anxiety disorder, unspecified; F32.9 Major depressive disorder, single episode, unspecified; E05.90 Thyrotoxicosis, unspecified without thyrotoxic crisis or storm; F17.210 Nicotine dependence, cigarettes, uncomplicated; G30.9 Alzheimer's disease, unspecified; F02.81 Dementia in other diseases classified elsewhere, unspecified severity, with behavioral disturbance; E87.6 Hypokalemia; K51.00 Ulcerative (chronic) pancolitis without complications; Z88.5 Allergy status to narcotic agent; Z98.890 Other specified postprocedural states; Z79.899 Other long term (current) drug therapy
CPT/HCPCS: 36415; 49083; 74177; 76705; 80053; 80074; 81001; 82140; 82607; 82945; 83615; 83690; 83735; 84100; 84157; 85014; 85018; 85025; 85610; 87040; 87070; 87086; 87205; 89050; 93005; 96365; 96375; 99285; A9270; C9113; J1170; J1644; J2001; J2060; J2405; J2543; J3475; J7030; J7050; Q9967; 93010

== ENCOUNTER 2020-10-10 18:28 | Inpatient (IN) | payer BC ==
--- NOTE | 2020-10-10 19:02 | EDM.PDOC ---
ED HPI GENERAL MEDICAL PROBLEM - General Chief Complaint: Fever Stated Complaint: FEVER Time Seen by Provider: 10/10/20 18:31 Source of Information: Reports: Patient History Limitations: Reports: No Limitations - History of Present Illness INITIAL COMMENTS - FREE TEXT/NARRATIVE: HISTORY AND PHYSICAL: History of present illness: Patient is a 35-year-old female who presents to the emergency room with complaints of generalized abdominal pain and low grade fevers. She was admitted to our hospital on 10/05/2020 through 10/08/2020 for ascites, alcoholic hepatitis, pancolitis and received IV Zosyn and pain medication. She has a past medical history of alcohol dependence, GERD and liver disease. She states her last alcoholic drink was October 05 and has not had any since. It was shortly after having this alcoholic beverage that she started to have abdominal pain and was admitted. After she was discharged on 10/08 she states she felt that her abdomen was slowly "filling back up" and is tender to touch. She has had fevers of 99-100 Fahrenheit. 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 Patient denies any chills, headache, change in vision, syncope or near syncope. Denies any chest pain, back pain, shortness of breath or cough. Denies any nausea, vomiting, diarrhea, constipation or dysuria. Has not noted any blood in urine or stool. Patient has been eating and drinking appropriately. Review of systems: As per history of present illness and below otherwise all systems reviewed and negative. Past medical history: As per history of present illness and as reviewed below otherwise noncontributory. Surgical history: As per history of present illness and as reviewed below otherwise no ncontributory. Social history: See social history for further information Family history: As per history of present illness and as reviewed below otherwise noncontributory. Physical exam: General: Well developed and well nourished 35 year old female. Alert and orientated x 3. Nontoxic in appearance and in no acute distress. Vital signs are stable and have been reviewed by me. Nursing notes were reviewed. HEENT: Atraumatic, normocephalic, pupils equal and reactive bilaterally, negative for conjunctival pallor or scleral icterus, mucous membranes moist, TMs normal bilaterally, throat clear, neck supple, nontender, trachea midline. No drooling or trismus noted. No meningeal signs. No hot potato voice noted. Lungs: Clear to auscultation, breath sounds equal bilaterally, chest nontender. Normal work of breathing, no accessory muscles used. Heart: S1S2, regular rate and rhythm without overt murmur Abdomen: Moderately distended/ascites, semi-firm to touch, tender throughout. Paracentesis sites noted without erythema (mild redness where tape dressing was). Negative for costovertebral tenderness. Pelvis: Stable nontender. Skin: Paracentesis sites noted to left lower abdomen without erythema (mild redness where tape dressing was). Otherwise skin is intact, warm, dry. No lesions or rashes noted. Hematologic: No petechiae or purpra. Mucosa appropriate color and normal nail bed color and refill. Extremities: Atraumatic, moves all extremities per self without difficulty or deficits, negative for cords or calf pain. Neurovascular unremarkable. Neuro: Awake, alert, oriented. Cranial nerves II through XII unremarkable. Cerebellum unremarkable. Motor and sensory unremarkable throughout. Exam nonfocal. Psychiatric: Mood and affect are appropriate. Normal thought process. Answering questions appropriately. Notes: Patient's potassium is 3.0, AST 135, ALT in 90, alk phos 161, total bili 3.2, lipase is 830. Her urine shows +2 bacteria with positive nitrates. Patient had been on Cipro and Flagyl p.o., patient states she has been compliant with these. Since she has failed outpatient therapy I will offer her admission for the pancreatitis and UTI. I have talked with the patient about today's findings, in addition to providing specific details for plan of care. She is agreeable to admission. Dr. Brooks, hospitalist was consulted and he is agreeable to admit this patient for further care and management. Diagnostics: CBC, CMP, Lipase, UA, HCGU, [employer]: Dilaudid, Zofran, Zosyn, K-Gonzalo 40meQ Impression: UTI (failed outpatient therapy) Pancreatitis Hypokalemia Plan: Observation admission with telemetry to [facility] Definitive disposition and diagnosis as appropriate pending reevaluation and review of above. Duration: Day(s): Location: Reports: Abdomen Abdomen Pain Score (Numeric/FACES): 10 - Related Data Allergies Allergy/AdvReac Type Severity Reaction Status Date / Time codeine Allergy Mild Nausea and Verified 10/10/20 18:37 Vomiting Home Meds: Home Meds Magnesium 30 mg PO DAILY 10/05/20 [History] Zinc 50 mg PO DAILY 10/05/20 [History] Mirtazapine 15 mg PO BEDTIME 10/06/20 [History] Omeprazole 20 mg PO ACBREAKFAST 10/06/20 [History] Ciprofloxacin HCl [Cipro] 500 mg PO BID 3 Days #6 tablet 10/08/20 [Rx] Lactulose 10 gm PO DAILY #300 ml 10/08/20 [Rx] Ondansetron [Zofran] 4 mg PO Q8H PRN #18 tab 10/08/20 [Rx] metroNIDAZOLE [Flagyl] 500 mg PO Q8H 3 Days #9 tab 10/08/20 [Rx] traMADol [Ultram] 50 mg PO TID PRN #18 tab 10/08/20 [Rx] Past Medical History HEENT History: Reports: None Other HEENT History: Yellow sclera Respiratory History: Reports: Other (See Below) Other Respiratory History: pluerisy Gastrointestinal History: Reports: Other (See Below) Other Gastrointestinal History: heartburn Genitourinary History: Reports: Other (See Below) Other Genitourinary History: yeast infection during Musculoskeletal History: Reports: Back Pain, Chronic Other Musculoskeletal History: hx herniated disc in lower back Oncologic (Cancer) History: Reports: Cervix - Infectious Disease History Infectious Disease History: Reports: Chicken Pox, Influenza, Novel Coronavirus - Past Surgical History HEENT Surgical History: Reports: Oral Surgery Other HEENT Surgeries/Procedures: teeth removed at 26 years of age wears dentures Respiratory Surgical History: Reports: None GI Surgical History: Reports: None Female Surgical History: Reports: None Musculoskeletal Surgical History: Reports: None Oncologic Surgical History: Reports: Other (See Below) Other Oncologic Surgeries/Procedures: LEEP Social & Family History - Family History Family Medical History: No Pertinent Family History HEENT: Reports: Cataract, Glaucoma, Impaired Vision Cardiac: Reports: CAD, High Cholesterol, Hypertension GI: Reports: Cholelithiasis, Hepatitis OBGYN: Reports: Endometriosis Musculoskeletal: Reports: Arthritis, Back pain, Chronic, Neck Pain, Chronic, Osteoarthritis, RA Neurological: Reports: Alzheimers Disease, Dementia, Parkinson's Psychiatric: Reports: ADD, ADHD, Anxiety, Depression, Emotional Problems, Learning Disability, Mood Swings, Panic Attack Endocrine/Metabolic: Reports: Diabetes, type II, Hyperthyroidism Oncologic: Reports: Leukemia - Tobacco Use Tobacco Use Status *Q: Never Tobacco User - Caffeine Use Caffeine Use: Reports: None - Recreational Drug Use Recreational Drug Use: No ED ROS GENERAL - Review of Systems Review Of Systems: Comprehensive ROS is negative, except as noted in HPI. ED EXAM, GENERAL - Physical Exam Exam: See Below (See dictation) Course - Vital Signs Last Recorded V/S: Last Vital Signs Temp 97.3 F 10/10/20 18:38 Pulse 113 H 10/10/20 19:24 Resp 18 10/10/20 19:24 BP 108/60 10/10/20 19:24 Pulse Ox 100 10/10/20 19:24 - Orders/Labs/Meds Orders: Active Orders 24 hr Category Date Time Status Admission Status [Patient Status] [ADT] Stat ADT 10/10/20 20:16 Ordered CULTURE URINE [RM] Stat Lab 10/10/20 19:05 Received HCG QUALITATIVE,URINE [URCHEM] Stat Lab 10/10/20 20:22 Ordered MAGNESIUM [CHEM] Stat Lab 10/10/20 20:16 Ordered Piperacillin/Tazobactam [Piperacil-Tazobact] 4.5 gm Med 10/10/20 20:16 Ordered Sodium Chloride 0.9% [Normal Saline] 100 ml IV ONETIME Potassium Chloride Riders [KCL 40 MEQ in Water 100 ML] Med 10/10/20 20:20 Ordered 40 meq Premix Bag 1 bag IV ONETIME Medication Orders Piperacillin Sod/Tazobactam (Sod 4.5 gm/ Sodium Chloride) 100 mls @ 100 mls/hr IV ONETIME ONE Stop: 10/10/20 21:15 Potassium Chloride 40 meq/ (Premix) 100 mls @ 25 mls/hr IV ONETIME ONE Stop: 10/11/20 00:19 Labs: Laboratory Tests 10/10/20 10/10/20 10/10/20 Range/Units 09:20 09:20 19:05 WBC 8.65 (4.0-11.0) K/uL RBC 2.65 L (4.30-5.90) M/uL Hgb 10.3 L (12.0-16.0) g/dL Hct 30.5 L (36.0-46.0) % MCV 115.1 H (80.0-98.0) fL MCH 38.9 H (27.0-32.0) pg MCHC 33.8 (31.0-37.0) g/dL RDW Std Deviation 59.4 (28.0-62.0) fl RDW Coeff of Blue 14 (11.0-15.0) % Plt Count 183 (150-400) K/uL MPV 11.10 (7.40-12.00) fL Neut % (Auto) 79.1 (48.0-80.0) % Lymph % (Auto) 10.3 L (16.0-40.0) % Greer % (Auto) 10.2 (0.0-15.0) % Eos % (Auto) 0.2 (0.0-7.0) % Baso % (Auto) 0.2 (0.0-1.5) % Neut # (Auto) 6.8 H (1.4-5.7) K/uL Lymph # (Auto) 0.9 (0.6-2.4) K/uL Greer # (Auto) 0.9 H (0.0-0.8) K/uL Eos # (Auto) 0.0 (0.0-0.7) K/uL Baso # (Auto) 0.0 (0.0-0.1) K/uL Nucleated RBC % 0.0 /100WBC Nucleated RBCs # 0 K/uL Lactate (0.20-2.00) mmol/L Sodium 136 (136-145) mmol/L Potassium 3.0 L (3.5-5.1) mmol/L Chloride 102 (98-107) mmol/L Carbon Dioxide 27.4 (21.0-32.0) mmol/L BUN 6 L (7.0-18.0) mg/dL Creatinine 0.8 (0.6-1.0) mg/dL Est Cr Clr Drug Dosing 76.89 mL/min Estimated GFR (MDRD) > 60.0 ml/min Glucose 96 (74-106) mg/dL Calcium 8.0 L (8.5-10.1) mg/dL Total Bilirubin 3.2 H (0.2-1.0) mg/dL AST 135 H (15-37) IU/L ALT 90 H (14-63) IU/L Alkaline Phosphatase 161 H (46-116) U/L Total Protein 5.5 L (6.4-8.2) g/dL Albumin 2.2 L (3.4-5.0) g/dL Globulin 3.3 (2.6-4.0) g/dL Albumin/Globulin Ratio 0.7 L (0.9-1.6) Lipase 830 H (73-393) U/L Urine Color DARK YELLOW Urine Appearance SLT CLOUDY Urine pH 7.0 (5.0-8.0) Ur Specific [place] >= 1.030 (1.001-1.035) Urine Protein 100 H (NEGATIVE) mg/dL Urine Glucose (UA) NEGATIVE (NEGATIVE) mg/dL Urine Ketones TRACE H (NEGATIVE) mg/dL Urine Occult Blood TRACE-INTACT H (NEGATIVE) Urine Nitrite POSITIVE H (NEGATIVE) Urine Bilirubin MODERATE H (NEGATIVE) Urine Ictotest POSITIVE Urine Urobilinogen 1.0 (<2.0) EU/dL Ur Leukocyte Esterase TRACE H (NEGATIVE) Urine RBC 0-2 (0-2/HPF) Urine WBC 0-2 (0-5/HPF) Ur Epithelial Cells FEW (NONE-FEW) Other Crystals Urine Bacteria 2+ H (NEGATIVE) Urine Mucus MODERATE (NONE-MOD) 10/10/20 Range/Units 19:20 WBC (4.0-11.0) K/uL RBC (4.30-5.90) M/uL Hgb (12.0-16.0) g/dL Hct (36.0-46.0) % MCV (80.0-98.0) fL MCH (27.0-32.0) pg MCHC (31.0-37.0) g/dL RDW Std Deviation (28.0-62.0) fl RDW Coeff of Blue (11.0-15.0) % Plt Count (150-400) K/uL MPV (7.40-12.00) fL Neut % (Auto) (48.0-80.0) % Lymph % (Auto) (16.0-40.0) % Greer % (Auto) (0.0-15.0) % Eos % (Auto) (0.0-7.0) % Baso % (Auto) (0.0-1.5) % Neut # (Auto) (1.4-5.7) K/uL Lymph # (Auto) (0.6-2.4) K/uL Greer # (Auto) (0.0-0.8) K/uL Eos # (Auto) (0.0-0.7) K/uL Baso # (Auto) (0.0-0.1) K/uL Nucleated RBC % /100WBC Nucleated RBCs # K/uL Lactate 1.9 (0.20-2.00) mmol/L Sodium (136-145) mmol/L Potassium (3.5-5.1) mmol/L Chloride (98-107) mmol/L Carbon Dioxide (21.0-32.0) mmol/L BUN (7.0-18.0) mg/dL Creatinine (0.6-1.0) mg/dL Est Cr Clr Drug Dosing mL/min Estimated GFR (MDRD) ml/min Glucose (74-106) mg/dL Calcium (8.5-10.1) mg/dL Total Bilirubin (0.2-1.0) mg/dL AST (15-37) IU/L ALT (14-63) IU/L Alkaline Phosphatase (46-116) U/L Total Protein (6.4-8.2) g/dL Albumin (3.4-5.0) g/dL Globulin (2.6-4.0) g/dL Albumin/Globulin Ratio (0.9-1.6) Lipase (73-393) U/L Urine Color Urine Appearance Urine pH (5.0-8.0) Ur Specific [place] (1.001-1.035) Urine Protein (NEGATIVE) mg/dL Urine Glucose (UA) (NEGATIVE) mg/dL Urine Ketones (NEGATIVE) mg/dL Urine Occult Blood (NEGATIVE) Urine Nitrite (NEGATIVE) Urine Bilirubin (NEGATIVE) Urine Ictotest Urine Urobilinogen (<2.0) EU/dL Ur Leukocyte Esterase (NEGATIVE) Urine RBC (0-2/HPF) Urine WBC (0-5/HPF) Ur Epithelial Cells (NONE-FEW) Other Crystals Urine Bacteria (NEGATIVE) Urine Mucus (NONE-MOD) Meds: Medications Generic Name Dose Route Start Last Admin Trade Name Freq PRN Reason Stop Dose Admin Piperacillin Sod/Tazobactam 100 mls @ 100 mls/hr 10/10/20 20:16 Sod 4.5 gm/ Sodium Chloride IV 10/10/20 21:15 ONETIME ONE Potassium Chloride 40 meq/ 100 mls @ 25 mls/hr 10/10/20 20:20 Premix IV 10/11/20 00:19 ONETIME ONE Discontinued Medications Generic Name Dose Route Start Last Admin Trade Name Galoq PRN Reason Stop Dose Admin Hydromorphone HCl 1 mg 10/10/20 19:20 10/10/20 19:29 Dilaudid IVPUSH 10/10/20 19:21 1 mg ONETIME ONE Administration Ondansetron HCl 4 mg 10/10/20 19:35 10/10/20 19:40 Zofran IVPUSH 10/10/20 19:36 4 mg ONETIME ONE Administration Potassium Chloride 40 meq 10/10/20 20:19 Klor-Con M20 PO 10/10/20 20:20 ONETIME ONE Departure - Departure Time of Disposition: 20:20 Disposition: Refer to Observation Clinical Impression: Hypokalemia Pancreatitis Qualifiers: Chronicity: acute Pancreatitis type: unspecified pancreatitis type Acute pancreatitis complication: unspecified Qualified Code(s): K85.90 - Acute pancreatitis without necrosis or infection, unspecified UTI (urinary tract infection) Qualifiers: Urinary tract infection type: acute cystitis Hematuria presence: with hematuria Qualified Code(s): N30.01 - Acute cystitis with hematuria - Discharge Information Referrals: Amber Goldsmith [employer]RO[employer] PLATFORM DEVELOPER [Primary Care Provider] - Forms: ED Department Discharge Sepsis Event Note (ED) - Evaluation Sepsis Screening Result: Possible Sepsis Risk - Focused Exam Vital Signs: Vital Signs Temp Pulse Resp BP Pulse Ox 10/10/20 19:24 113 H 18 108/60 100 10/10/20 18:38 97.3 F 108 H 18 106/64 100 - My Orders Last 24 Hours: My Active Orders 10/10/20 19:05 CULTURE URINE [RM] Stat 10/10/20 20:16 Admission Status [Patient Status] [ADT] Stat MAGNESIUM [CHEM] Stat Piperacillin/Tazobactam [Piperacil-Tazobact] 4.5 gm Sodium Chloride 0.9% [Normal Saline] 100 ml IV ONETIME 10/10/20 20:20 Potassium Chloride Riders [KCL 40 MEQ in Water 100 ML] 40 meq Premix Bag 1 bag IV ONETIME 10/10/20 20:22 HCG QUALITATIVE,URINE [URCHEM] Stat - Assessment/Plan Last 24 Hours: My Active Orders 10/10/20 19:05 CULTURE URINE [RM] Stat 10/10/20 20:16 Admission Status [Patient Status] [ADT] Stat MAGNESIUM [CHEM] Stat Piperacillin/Tazobactam [Piperacil-Tazobact] 4.5 gm Sodium Chloride 0.9% [Normal Saline] 100 ml IV ONETIME 10/10/20 20:20 Potassium Chloride Riders [KCL 40 MEQ in Water 100 ML] 40 meq Premix Bag 1 bag IV ONETIME 10/10/20 20:22 HCG QUALITATIVE,URINE [URCHEM] Stat
[2020-10-10] MEDS ORDERED: HYDROmorphone 1 MG/ML Syringe IVPUSH ONE (19:20)
[2020-10-10] MEDS ORDERED: Ondansetron 4 MG/2 ML SDV IVPUSH ONE (19:35)
[2020-10-10 19:48] LABS: BLOOD UREA NITROGEN,BUN 6 mg/dL (7.0-18.0); CARBON DIOXIDE,CO2 27.4 mmol/L (21.0-32.0); CHLORIDE,CL 102 mmol/L (98-107); GLUCOSE RANDOM 96 mg/dL (74-106); LIPASE 830 U/L (73-393); SODIUM,NA 136 mmol/L (136-145)
[2020-10-10] MEDS ORDERED: Piperacillin/Tazobactam 4.5 GM in Sodium Chloride 0.9% 100 ML IV ONE (20:16)
[2020-10-10] MEDS ORDERED: Potassium Chloride 20 MEQ Tab.ER PO ONE (20:19)
[2020-10-10] MEDS ORDERED: Potassium Chloride Riders 40 MEQ in Premix Bag 1 BAG IV ONE (20:20)
[2020-10-10] MEDS ORDERED: Sodium Chloride 0.9% with KCl 1,000 ML IV SCH (21:15)
--- NOTE | 2020-10-10 22:39 | PCM.HP.2 ---
H&P History of Present Illness - General Date of Service: 10/10/20 Admit Problem/Dx: Admission Diagnosis/Problem Admission Diagnosis/Problem Pancreatitis - History of Present Illness Initial Comments - Free Text/Narative: 35 yo female with pmh of ETOH abuse and cirrhosis who was admitted 10/05-10/08 for pancolitis/UTI/ascities. Patient had CT scan that showed pancolitis, she received paracentesis and was treated with Zosyn. She was discharged on Ciprofloxacin and Flagyl. PAtient returns with similar abdominal pain and feeling of bloating with myalgias. She was found to have a UTI and lipase of 830. Abdomen Pain Score (Numeric/FACES): 10 - Related Data Allergies/Adverse Reactions: Allergies Allergy/AdvReac Type Severity Reaction Status Date / Time codeine Allergy Mild Nausea and Verified 10/10/20 18:37 Vomiting Home Medications: Home Meds Magnesium 30 mg PO DAILY 10/05/20 [History] Zinc 50 mg PO DAILY 10/05/20 [History] Mirtazapine 15 mg PO BEDTIME 10/06/20 [History] Omeprazole 20 mg PO ACBREAKFAST 10/06/20 [History] Ciprofloxacin HCl [Cipro] 500 mg PO BID 3 Days #6 tablet 10/08/20 [Rx] Lactulose 10 gm PO DAILY #300 ml 10/08/20 [Rx] Ondansetron [Zofran] 4 mg PO Q8H PRN #18 tab 10/08/20 [Rx] metroNIDAZOLE [Flagyl] 500 mg PO Q8H 3 Days #9 tab 10/08/20 [Rx] traMADol [Ultram] 50 mg PO TID PRN #18 tab 10/08/20 [Rx] Past Medical History HEENT History: Reports: None Other HEENT History: Yellow sclera Respiratory History: Reports: Other (See Below) Other Respiratory History: pluerisy Gastrointestinal History: Reports: Other (See Below) Other Gastrointestinal History: heartburn Genitourinary History: Reports: Other (See Below) Other Genitourinary History: yeast infection during Musculoskeletal History: Reports: Back Pain, Chronic Other Musculoskeletal History: hx herniated disc in lower back Oncologic (Cancer) History: Reports: Cervix - Infectious Disease History Infectious Disease History: Reports: Chicken Pox, Influenza, Novel Coronavirus - Past Surgical History HEENT Surgical History: Reports: Oral Surgery Other HEENT Surgeries/Procedures: teeth removed at 26 years of age wears dentures Respiratory Surgical History: Reports: None GI Surgical History: Reports: None Female Surgical History: Reports: None Musculoskeletal Surgical History: Reports: None Oncologic Surgical History: Reports: Other (See Below) Other Oncologic Surgeries/Procedures: LEEP Social & Family History - Family History Family Medical History: No Pertinent Family History HEENT: Reports: Cataract, Glaucoma, Impaired Vision Cardiac: Reports: CAD, High Cholesterol, Hypertension GI: Reports: Cholelithiasis, Hepatitis OBGYN: Reports: Endometriosis Musculoskeletal: Reports: Arthritis, Back pain, Chronic, Neck Pain, Chronic, Osteoarthritis, RA Neurological: Reports: Alzheimers Disease, Dementia, Parkinson's Psychiatric: Reports: ADD, ADHD, Anxiety, Depression, Emotional Problems, Learning Disability, Mood Swings, Panic Attack Endocrine/Metabolic: Reports: Diabetes, type II, Hyperthyroidism Oncologic: Reports: Leukemia - Tobacco Use Tobacco Use Status *Q: Never Tobacco User - Caffeine Use Caffeine Use: Reports: None - Recreational Drug Use Recreational Drug Use: No H&P Review of Systems - Review of Systems: Review Of Systems: Comprehensive ROS is negative, except as noted in HPI. Exam - Exam Exam: See Below - Vital Signs Vital Signs: Last Vital Signs Temp 36.3 C 10/10/20 18:38 Pulse 95 10/10/20 21:30 Resp 16 10/10/20 21:30 BP 111/73 10/10/20 20:38 Pulse Ox 100 10/10/20 21:30 Weight: 52.163 kg - Exam General: Alert, Oriented HEENT: Mucosa Moist & [place] Neck: Supple Lungs: Clear to Auscultation, Normal Respiratory Effort Cardiovascular: Regular Rate, Regular Rhythm GI/Abdominal Exam: Normal Bowel Sounds, Soft, Non-Tender, No Distention, No Mass Extremities: Pedal Edema (+2) Skin: Warm, Dry, Intact Neurological: Cranial Nerves Intact. No: Focal Deficit - Patient Data Lab Results Last 24 hrs: Laboratory Results - last 24 hr 10/10/20 10/10/20 10/10/20 Range/Units 09:20 09:20 19:05 WBC 8.65 (4.0-11.0) K/uL RBC 2.65 L (4.30-5.90) M/uL Hgb 10.3 L (12.0-16.0) g/dL Hct 30.5 L (36.0-46.0) % MCV 115.1 H (80.0-98.0) fL MCH 38.9 H (27.0-32.0) pg MCHC 33.8 (31.0-37.0) g/dL RDW Std Deviation 59.4 (28.0-62.0) fl RDW Coeff of Blue 14 (11.0-15.0) % Plt Count 183 (150-400) K/uL MPV 11.10 (7.40-12.00) fL Neut % (Auto) 79.1 (48.0-80.0) % Lymph % (Auto) 10.3 L (16.0-40.0) % [place] % (Auto) 10.2 (0.0-15.0) % Eos % (Auto) 0.2 (0.0-7.0) % Baso % (Auto) 0.2 (0.0-1.5) % Neut # (Auto) 6.8 H (1.4-5.7) K/uL Lymph # (Auto) 0.9 (0.6-2.4) K/uL [place] # (Auto) 0.9 H (0.0-0.8) K/uL Eos # (Auto) 0.0 (0.0-0.7) K/uL Baso # (Auto) 0.0 (0.0-0.1) K/uL Nucleated RBC % 0.0 /100WBC Nucleated RBCs # 0 K/uL Lactate (0.20-2.00) mmol/L Sodium 136 (136-145) mmol/L Potassium 3.0 L (3.5-5.1) mmol/L Chloride 102 (98-107) mmol/L Carbon Dioxide 27.4 (21.0-32.0) mmol/L BUN 6 L (7.0-18.0) mg/dL Creatinine 0.8 (0.6-1.0) mg/dL Est Cr Clr Drug Dosing 76.89 mL/min Estimated GFR (MDRD) > 60.0 ml/min Glucose 96 (74-106) mg/dL Calcium 8.0 L (8.5-10.1) mg/dL Magnesium (1.8-2.4) mg/dL Total Bilirubin 3.2 H (0.2-1.0) mg/dL AST 135 H (15-37) IU/L ALT 90 H (14-63) IU/L Alkaline Phosphatase 161 H (46-116) U/L Total Protein 5.5 L (6.4-8.2) g/dL Albumin 2.2 L (3.4-5.0) g/dL Globulin 3.3 (2.6-4.0) g/dL Albumin/Globulin Ratio 0.7 L (0.9-1.6) Lipase 830 H (73-393) U/L Urine Color DARK YELLOW Urine Appearance SLT CLOUDY Urine pH 7.0 (5.0-8.0) Ur Specific [place] >= 1.030 (1.001-1.035) Urine Protein 100 H (NEGATIVE) mg/dL Urine Glucose (UA) NEGATIVE (NEGATIVE) mg/dL Urine Ketones TRACE H (NEGATIVE) mg/dL Urine Occult Blood TRACE-INTACT H (NEGATIVE) Urine Nitrite POSITIVE H (NEGATIVE) Urine Bilirubin MODERATE H (NEGATIVE) Urine Ictotest POSITIVE Urine Urobilinogen 1.0 (<2.0) EU/dL Ur Leukocyte Esterase TRACE H (NEGATIVE) Urine RBC 0-2 (0-2/HPF) Urine WBC 0-2 (0-5/HPF) Ur Epithelial Cells FEW (NONE-FEW) Other Crystals Urine Bacteria 2+ H (NEGATIVE) Urine Mucus MODERATE (NONE-MOD) Urine HCG, Qual (NEGATIVE) 10/10/20 10/10/20 10/10/20 Range/Units 19:05 19:20 19:20 WBC (4.0-11.0) K/uL RBC (4.30-5.90) M/uL Hgb (12.0-16.0) g/dL Hct (36.0-46.0) % MCV (80.0-98.0) fL MCH (27.0-32.0) pg MCHC (31.0-37.0) g/dL RDW Std Deviation (28.0-62.0) fl RDW Coeff of Blue (11.0-15.0) % Plt Count (150-400) K/uL MPV (7.40-12.00) fL Neut % (Auto) (48.0-80.0) % Lymph % (Auto) (16.0-40.0) % [place] % (Auto) (0.0-15.0) % Eos % (Auto) (0.0-7.0) % Baso % (Auto) (0.0-1.5) % Neut # (Auto) (1.4-5.7) K/uL Lymph # (Auto) (0.6-2.4) K/uL [place] # (Auto) (0.0-0.8) K/uL Eos # (Auto) (0.0-0.7) K/uL Baso # (Auto) (0.0-0.1) K/uL Nucleated RBC % /100WBC Nucleated RBCs # K/uL Lactate 1.9 (0.20-2.00) mmol/L Sodium (136-145) mmol/L Potassium (3.5-5.1) mmol/L Chloride (98-107) mmol/L Carbon Dioxide (21.0-32.0) mmol/L BUN (7.0-18.0) mg/dL Creatinine (0.6-1.0) mg/dL Est Cr Clr Drug Dosing mL/min Estimated GFR (MDRD) ml/min Glucose (74-106) mg/dL Calcium (8.5-10.1) mg/dL Magnesium 1.8 (1.8-2.4) mg/dL Total Bilirubin (0.2-1.0) mg/dL AST (15-37) IU/L ALT (14-63) IU/L Alkaline Phosphatase (46-116) U/L Total Protein (6.4-8.2) g/dL Albumin (3.4-5.0) g/dL Globulin (2.6-4.0) g/dL Albumin/Globulin Ratio (0.9-1.6) Lipase (73-393) U/L Urine Color Urine Appearance Urine pH (5.0-8.0) Ur Specific [place] (1.001-1.035) Urine Protein (NEGATIVE) mg/dL Urine Glucose (UA) (NEGATIVE) mg/dL Urine Ketones (NEGATIVE) mg/dL Urine Occult Blood (NEGATIVE) Urine Nitrite (NEGATIVE) Urine Bilirubin (NEGATIVE) Urine Ictotest Urine Urobilinogen (<2.0) EU/dL Ur Leukocyte Esterase (NEGATIVE) Urine RBC (0-2/HPF) Urine WBC (0-5/HPF) Ur Epithelial Cells (NONE-FEW) Other Crystals Urine Bacteria (NEGATIVE) Urine Mucus (NONE-MOD) Urine HCG, Qual NEGATIVE (NEGATIVE) Result Diagrams: 10/10/20 09:20 10/10/20 09:20 Sepsis Event Note - Evaluation Sepsis Screening Result: Possible Sepsis Risk - Focused Exam Vital Signs: Vital Signs Temp Pulse Resp BP Pulse Ox 10/10/20 21:30 95 16 100 10/10/20 20:38 103 H 16 111/73 100 10/10/20 19:24 113 H 18 108/60 100 10/10/20 18:38 36.3 C 108 H 18 106/64 100 Problem List Initiated/Reviewed/Updated: Yes Orders Last 24hrs: Active Orders 24 hr Category Date Time Status Admission Status [Patient Status] [ADT] Stat ADT 10/10/20 20:16 Active Antiembolic Devices [RC] PER UNIT ROUTINE Care 10/10/20 22:32 Ordered Oxygen Therapy [RC] PRN Care 10/10/20 22:31 Ordered Up ad Imani [RC] ASDIRECTED Care 10/10/20 22:31 Ordered VTE/DVT Education [RC] PER UNIT ROUTINE Care 10/10/20 22:31 Ordered Vital Signs [RC] Q4H Care 10/10/20 22:31 Ordered Nothing per Oral Now Diet [DIET] Diet 10/10/20 Breakfast Ordered CBC WITH AUTO DIFF [HEME] AM Lab 10/11/20 05:11 Ordered COMPREHENSIVE METABOLIC PN,CMP [CHEM] AM Lab 10/11/20 05:11 Ordered CULTURE BLOOD [BC] Stat Lab 10/10/20 22:30 Ordered CULTURE BLOOD [BC] Stat Lab 10/10/20 22:30 Ordered CULTURE URINE [RM] Stat Lab 10/10/20 19:05 Received INR,PT,PROTHROMBIN TIME [COAG] Routine Lab 10/10/20 22:31 Ordered HYDROmorphone [Dilaudid] Med 10/10/20 22:33 Ordered 1 mg IVPUSH Q3H PRN Lactulose [Chronulac] Med 10/11/20 09:00 Ordered 10 gm PO DAILY Omeprazole Med 10/11/20 07:30 Ordered 20 mg PO ACBREAKFAST Piperacillin/Tazobactam [Piperacil-Tazobact] 3.375 gm Med 10/11/20 02:00 Ordered Sodium Chloride 0.9% [Normal Saline] 50 ml IV Q6H Potassium Chloride Riders [KCL 40 MEQ in Water 100 ML] Med 10/10/20 20:20 Active 40 meq Premix Bag 1 bag IV ONETIME Sodium Chloride 0.9% @ 150 MLS/HR (1,000ml) Med 10/10/20 22:30 Ordered Sodium Chloride 0.9% [Normal Saline] 1,000 ml IV ASDIRECTED Sodium Chloride 0.9% with KCl [Normal Saline with 40 Med 10/10/20 21:15 Active mEq KCl] 1,000 ml IV ASDIRECTED Blood Culture x2 Reflex Set [OM.PC] Stat Oth 10/10/20 22:30 Ordered Sequential Compression Device [OM.PC] Per Unit Routine Oth 10/10/20 22:31 Ordered Resuscitation Status Routine Resus Stat 10/10/20 22:31 Ordered Medication Orders Hydromorphone HCl (Dilaudid) 1 mg IVPUSH Q3H PRN PRN Reason: Pain Potassium Chloride 40 meq/ (Premix) 100 mls @ 25 mls/hr IV ONETIME ONE Stop: 10/11/20 00:19 Last Admin: 10/10/20 21:02 Dose: Not Given Documented by: JOSEPH Potassium Chloride/Sodium Chloride (Normal Saline With 40 Meq Kcl) 1,000 mls @ 175 mls/hr IV ASDIRECTED DENISE Last Admin: 10/10/20 21:28 Dose: 175 mls/hr Documented by: WE[place]INGTON Piperacillin Sod/Tazobactam (Sod 3.375 gm/ Sodium Chloride) 50 mls @ 100 mls/hr IV Q6H DENISE Sodium Chloride (Normal Saline) 1,000 mls @ 150 mls/hr IV ASDIRECTED DENISE Lactulose (Chronulac) 10 gm PO DAILY DENISE Omeprazole (Omeprazole) 20 mg PO ACBREAKFAST PENDING SALE TO [facility] Assessment/Plan Comment:: 35 yo female with pmh of cirrhosis and colitis, who is admitted for UTI and pancreatitis Pancreatitis: treating with bowel rest and IV fluids UTI/pancolitis: treating with Zosyn, cultures pending Cirrhosis: patient will likely need to be place on lasix once pancreatitis has resolved
[2020-10-11] MEDS: HYDROmorphone 1 MG/ML Syringe IVPUSH PRN ×6 (00:15→21:04)
[2020-10-11] MEDS: Piperacillin/Tazobactam 3.375 GM in Sodium Chloride 0.9% 50 ML IV SCH ×4 (02:02→21:10)
[2020-10-11] MEDS: Sodium Chloride 0.9% 1,000 ML IV SCH ×2 (05:10→13:14)
[2020-10-11 07:00] LABS: BLOOD UREA NITROGEN,BUN 5 mg/dL (7.0-18.0); CARBON DIOXIDE,CO2 26.3 mmol/L (21.0-32.0); CHLORIDE,CL 106 mmol/L (98-107); GLUCOSE RANDOM 72 mg/dL (74-106); LIPASE 475 U/L (73-393); POTASSIUM,K 3.8 mmol/L (3.5-5.1); SODIUM,NA 138 mmol/L (136-145)
[2020-10-11] MEDS: Omeprazole 20 MG Cap.CR PO SCH (07:31)
[2020-10-11] MEDS: Lactulose Soln 10 GM/15 ML 15 ML UD Cup PO SCH (08:33)
--- NOTE | 2020-10-11 13:48 | PCM.PN ---
- General Info Date of Service: 10/11/20 - Review of Systems Systems Review Comment:: patient reports abdominal pain, swelling of legs - Patient Data Vitals - Most Recent: Last Vital Signs Temp 36.6 C 10/11/20 12:00 Pulse 91 10/11/20 12:00 Resp 16 10/11/20 12:00 BP 103/67 10/11/20 12:00 Pulse Ox 100 10/11/20 12:00 Weight - Most Recent: 48.172 kg I&O - Last 24 Hours: Intake & Output 10/10/20 10/11/20 10/11/20 22:59 06:59 14:59 Intake Total 1050 Output Total 200 Balance 850 Lab Results Last 24 Hours: Laboratory Results - last 24 hr 10/10/20 10/10/20 10/10/20 Range/Units 09:20 09:20 19:05 WBC 8.65 (4.0-11.0) K/uL RBC 2.65 L (4.30-5.90) M/uL Hgb 10.3 L (12.0-16.0) g/dL Hct 30.5 L (36.0-46.0) % MCV 115.1 H (80.0-98.0) fL MCH 38.9 H (27.0-32.0) pg MCHC 33.8 (31.0-37.0) g/dL RDW Std Deviation 59.4 (28.0-62.0) fl RDW Coeff of Blue 14 (11.0-15.0) % Plt Count 183 (150-400) K/uL MPV 11.10 (7.40-12.00) fL Neut % (Auto) 79.1 (48.0-80.0) % Lymph % (Auto) 10.3 L (16.0-40.0) % Saline % (Auto) 10.2 (0.0-15.0) % Eos % (Auto) 0.2 (0.0-7.0) % Baso % (Auto) 0.2 (0.0-1.5) % Neut # (Auto) 6.8 H (1.4-5.7) K/uL Lymph # (Auto) 0.9 (0.6-2.4) K/uL Saline # (Auto) 0.9 H (0.0-0.8) K/uL Eos # (Auto) 0.0 (0.0-0.7) K/uL Baso # (Auto) 0.0 (0.0-0.1) K/uL Nucleated RBC % 0.0 /100WBC Nucleated RBCs # 0 K/uL INR Lactate (0.20-2.00) mmol/L Sodium 136 (136-145) mmol/L Potassium 3.0 L (3.5-5.1) mmol/L Chloride 102 (98-107) mmol/L Carbon Dioxide 27.4 (21.0-32.0) mmol/L BUN 6 L (7.0-18.0) mg/dL Creatinine 0.8 (0.6-1.0) mg/dL Est Cr Clr Drug Dosing 76.89 mL/min Estimated GFR (MDRD) > 60.0 ml/min Glucose 96 (74-106) mg/dL Calcium 8.0 L (8.5-10.1) mg/dL Magnesium (1.8-2.4) mg/dL Total Bilirubin 3.2 H (0.2-1.0) mg/dL AST 135 H (15-37) IU/L ALT 90 H (14-63) IU/L Alkaline Phosphatase 161 H (46-116) U/L Total Protein 5.5 L (6.4-8.2) g/dL Albumin 2.2 L (3.4-5.0) g/dL Globulin 3.3 (2.6-4.0) g/dL Albumin/Globulin Ratio 0.7 L (0.9-1.6) Lipase 830 H (73-393) U/L Urine Color DARK YELLOW Urine Appearance SLT CLOUDY Urine pH 7.0 (5.0-8.0) Ur Specific [place] >= 1.030 (1.001-1.035) Urine Protein 100 H (NEGATIVE) mg/dL Urine Glucose (UA) NEGATIVE (NEGATIVE) mg/dL Urine Ketones TRACE H (NEGATIVE) mg/dL Urine Occult Blood TRACE-INTACT H (NEGATIVE) Urine Nitrite POSITIVE H (NEGATIVE) Urine Bilirubin MODERATE H (NEGATIVE) Urine Ictotest POSITIVE Urine Urobilinogen 1.0 (<2.0) EU/dL Ur Leukocyte Esterase TRACE H (NEGATIVE) Urine RBC 0-2 (0-2/HPF) Urine WBC 0-2 (0-5/HPF) Ur Epithelial Cells FEW (NONE-FEW) Other Crystals Urine Bacteria 2+ H (NEGATIVE) Urine Mucus MODERATE (NONE-MOD) Urine HCG, Qual (NEGATIVE) 10/10/20 10/10/20 10/10/20 Range/Units 19:05 19:20 19:20 WBC (4.0-11.0) K/uL RBC (4.30-5.90) M/uL Hgb (12.0-16.0) g/dL Hct (36.0-46.0) % MCV (80.0-98.0) fL MCH (27.0-32.0) pg MCHC (31.0-37.0) g/dL RDW Std Deviation (28.0-62.0) fl RDW Coeff of Blue (11.0-15.0) % Plt Count (150-400) K/uL MPV (7.40-12.00) fL Neut % (Auto) (48.0-80.0) % Lymph % (Auto) (16.0-40.0) % Saline % (Auto) (0.0-15.0) % Eos % (Auto) (0.0-7.0) % Baso % (Auto) (0.0-1.5) % Neut # (Auto) (1.4-5.7) K/uL Lymph # (Auto) (0.6-2.4) K/uL Saline # (Auto) (0.0-0.8) K/uL Eos # (Auto) (0.0-0.7) K/uL Baso # (Auto) (0.0-0.1) K/uL Nucleated RBC % /100WBC Nucleated RBCs # K/uL INR Lactate 1.9 (0.20-2.00) mmol/L Sodium (136-145) mmol/L Potassium (3.5-5.1) mmol/L Chloride (98-107) mmol/L Carbon Dioxide (21.0-32.0) mmol/L BUN (7.0-18.0) mg/dL Creatinine (0.6-1.0) mg/dL Est Cr Clr Drug Dosing mL/min Estimated GFR (MDRD) ml/min Glucose (74-106) mg/dL Calcium (8.5-10.1) mg/dL Magnesium 1.8 (1.8-2.4) mg/dL Total Bilirubin (0.2-1.0) mg/dL AST (15-37) IU/L ALT (14-63) IU/L Alkaline Phosphatase (46-116) U/L Total Protein (6.4-8.2) g/dL Albumin (3.4-5.0) g/dL Globulin (2.6-4.0) g/dL Albumin/Globulin Ratio (0.9-1.6) Lipase (73-393) U/L Urine Color Urine Appearance Urine pH (5.0-8.0) Ur Specific [place] (1.001-1.035) Urine Protein (NEGATIVE) mg/dL Urine Glucose (UA) (NEGATIVE) mg/dL Urine Ketones (NEGATIVE) mg/dL Urine Occult Blood (NEGATIVE) Urine Nitrite (NEGATIVE) Urine Bilirubin (NEGATIVE) Urine Ictotest Urine Urobilinogen (<2.0) EU/dL Ur Leukocyte Esterase (NEGATIVE) Urine RBC (0-2/HPF) Urine WBC (0-5/HPF) Ur Epithelial Cells (NONE-FEW) Other Crystals Urine Bacteria (NEGATIVE) Urine Mucus (NONE-MOD) Urine HCG, Qual NEGATIVE (NEGATIVE) 10/10/20 10/11/20 10/11/20 Range/Units 19:20 05:50 05:50 WBC 6.91 (4.0-11.0) K/uL RBC 2.31 L (4.30-5.90) M/uL Hgb 8.9 L (12.0-16.0) g/dL Hct 27.1 L (36.0-46.0) % MCV 117.3 H (80.0-98.0) fL MCH 38.5 H (27.0-32.0) pg MCHC 32.8 (31.0-37.0) g/dL RDW Std Deviation 61.7 (28.0-62.0) fl RDW Coeff of Blue 15 (11.0-15.0) % Plt Count 150 (150-400) K/uL MPV 11.80 (7.40-12.00) fL Neut % (Auto) 75.0 (48.0-80.0) % Lymph % (Auto) 12.2 L (16.0-40.0) % Saline % (Auto) 11.1 (0.0-15.0) % Eos % (Auto) 1.0 (0.0-7.0) % Baso % (Auto) 0.7 (0.0-1.5) % Neut # (Auto) 5.2 (1.4-5.7) K/uL Lymph # (Auto) 0.8 (0.6-2.4) K/uL Saline # (Auto) 0.8 (0.0-0.8) K/uL Eos # (Auto) 0.1 (0.0-0.7) K/uL Baso # (Auto) 0.1 (0.0-0.1) K/uL Nucleated RBC % 0.0 /100WBC Nucleated RBCs # 0 K/uL INR 1.36 Lactate (0.20-2.00) mmol/L Sodium 138 (136-145) mmol/L Potassium 3.8 (3.5-5.1) mmol/L Chloride 106 (98-107) mmol/L Carbon Dioxide 26.3 (21.0-32.0) mmol/L BUN 5 L (7.0-18.0) mg/dL Creatinine 0.7 (0.6-1.0) mg/dL Est Cr Clr Drug Dosing 84.49 mL/min Estimated GFR (MDRD) > 60.0 ml/min Glucose 72 L (74-106) mg/dL Calcium 7.5 L (8.5-10.1) mg/dL Magnesium (1.8-2.4) mg/dL Total Bilirubin 3.3 H (0.2-1.0) mg/dL AST 97 H (15-37) IU/L ALT 75 H (14-63) IU/L Alkaline Phosphatase 130 H (46-116) U/L Total Protein 4.6 L (6.4-8.2) g/dL Albumin 1.8 L (3.4-5.0) g/dL Globulin 2.8 (2.6-4.0) g/dL Albumin/Globulin Ratio 0.6 L (0.9-1.6) Lipase 475 H (73-393) U/L Urine Color Urine Appearance Urine pH (5.0-8.0) Ur Specific [place] (1.001-1.035) Urine Protein (NEGATIVE) mg/dL Urine Glucose (UA) (NEGATIVE) mg/dL Urine Ketones (NEGATIVE) mg/dL Urine Occult Blood (NEGATIVE) Urine Nitrite (NEGATIVE) Urine Bilirubin (NEGATIVE) Urine Ictotest Urine Urobilinogen (<2.0) EU/dL Ur Leukocyte Esterase (NEGATIVE) Urine RBC (0-2/HPF) Urine WBC (0-5/HPF) Ur Epithelial Cells (NONE-FEW) Other Crystals Urine Bacteria (NEGATIVE) Urine Mucus (NONE-MOD) Urine HCG, Qual (NEGATIVE) Donny Results Last 24 Hours: Microbiology 10/10/20 23:18 Anaerobic Blood Culture - Final Blood - Venous - Lab Draw 10/10/20 23:02 Anaerobic Blood Culture - Final Blood - Venous Med Orders - Current: Current Medications Hydromorphone HCl (Dilaudid) 1 mg IVPUSH Q3H PRN PRN Reason: Pain Last Admin: 10/11/20 13:12 Dose: 1 mg Documented by: Potassium Chloride/Sodium Chloride (Normal Saline With 40 Meq Kcl) 1,000 mls @ 175 mls/hr IV ASDIRECTED [facility] Last Admin: 10/10/20 21:28 Dose: 175 mls/hr Documented by: Piperacillin Sod/Tazobactam (Sod 3.375 gm/ Sodium Chloride) 50 mls @ 100 mls/hr IV Q6H [facility] Last Admin: 10/11/20 13:20 Dose: 100 mls/hr Documented by: Sodium Chloride (Normal Saline) 1,000 mls @ 75 mls/hr IV ASDIRECTED [facility] Last Admin: 10/11/20 13:14 Dose: 150 mls/hr Documented by: Lactulose (Chronulac) 10 gm PO DAILY [facility] Last Admin: 10/11/20 08:33 Dose: 10 gm Documented by: Omeprazole (Omeprazole) 20 mg PO ACBREAKFAST [facility] Last Admin: 10/11/20 07:31 Dose: 20 mg Documented by: Ondansetron HCl (Zofran) 4 mg IVPUSH Q4H PRN PRN Reason: Nausea/Vomiting Discontinued Medications Hydromorphone HCl (Dilaudid) 1 mg IVPUSH ONETIME ONE Stop: 10/10/20 19:21 Last Admin: 12/11/20 19:29 Dose: 1 mg Documented by: Piperacillin Sod/Tazobactam (Sod 4.5 gm/ Sodium Chloride) 100 mls @ 100 mls/hr IV ONETIME ONE Stop: 10/10/20 21:15 Last Admin: 10/10/20 20:37 Dose: 100 mls/hr Documented by: Potassium Chloride 40 meq/ (Premix) 100 mls @ 25 mls/hr IV ONETIME ONE Stop: 10/11/20 00:19 Last Admin: 10/10/20 21:02 Dose: Not Given Documented by: Ondansetron HCl (Zofran) 4 mg IVPUSH ONETIME ONE Stop: 10/10/20 19:36 Last Admin: 10/10/20 19:40 Dose: 4 mg Documented by: Potassium Chloride (Klor-Con M20) 40 meq PO ONETIME ONE Stop: 10/10/20 20:20 Last Admin: 10/10/20 20:25 Dose: Not Given Documented by: - Exam General: Alert, Oriented Neck: Supple Lungs: Clear to Auscultation, Normal Respiratory Effort Cardiovascular: Regular Rate, Regular Rhythm GI/Abdominal Exam: Normal Bowel Sounds, Soft, Non-Tender, Distended (mildly). No: Guarding, Rigid, Rebound Extremities: Non-Tender, Pedal Edema (+1 edema) Skin: Warm, Dry, Intact Neurological: No New Focal Deficit Sepsis Event Note - Evaluation Sepsis Screening Result: No Definite Risk - Focused Exam Vital Signs: Vital Signs Temp Pulse Resp BP Pulse Ox 10/11/20 12:00 36.6 C 91 16 103/67 100 10/11/20 08:00 36.9 C 87 16 99/66 95 10/11/20 04:00 36.3 C 79 16 104/71 100 - Problem List Review Problem List Initiated/Reviewed/Updated: Yes - My Orders Last 24 Hours: My Active Orders 10/10/20 22:25 Telemetry Monitoring [Cardiac Monitoring] [RC] Q8H 10/10/20 22:30 Sodium Chloride 0.9% [Normal Saline] 1,000 ml IV ASDIRECTED Blood Culture x2 Reflex Set [OM.PC] Stat 10/10/20 22:31 Oxygen Therapy [RC] PRN Up ad Imani [RC] ASDIRECTED VTE/DVT Education [RC] PER UNIT ROUTINE Vital Signs [RC] Q4H Sequential Compression Device [OM.PC] Per Unit Routine Resuscitation Status Routine 10/10/20 22:32 Antiembolic Devices [RC] Q12H 10/10/20 22:33 HYDROmorphone [Dilaudid] 1 mg IVPUSH Q3H PRN 10/10/20 23:02 CULTURE BLOOD [BC] Stat 10/10/20 23:18 CULTURE BLOOD [BC] Stat 10/11/20 02:00 Piperacillin/Tazobactam [Piperacil-Tazobact] 3.375 gm Sodium Chloride 0.9% [Normal Saline] 50 ml IV Q6H 10/11/20 04:37 Ondansetron [Zofran] 4 mg IVPUSH Q4H PRN 10/11/20 07:30 Omeprazole 20 mg PO ACBREAKFAST 10/11/20 09:00 Lactulose [Chronulac] 10 gm PO DAILY 10/11/20 13:44 Abdomen Ltd [US] Routine - Plan Plan:: 35 yo female with pmh of cirrhosis and colitis, who is admitted for UTI and pancreatitis Pancreatitis: still having pain so will keep NPO, will decrease IV fluid rate as she has been making good urine and will want to avoid to much fluid overload due to her cirrhosis. UTI/pancolitis: treating with Zosyn, cultures pending Cirrhosis: patient will likely need to be place on lasix once pancreatitis has resolved
[2020-10-12] MEDS: HYDROmorphone 1 MG/ML Syringe IVPUSH PRN ×5 (01:41→20:14)
[2020-10-12] MEDS: Sodium Chloride 0.9% 1,000 ML IV SCH ×3 (01:48→17:42)
[2020-10-12] MEDS: Piperacillin/Tazobactam 3.375 GM in Sodium Chloride 0.9% 50 ML IV SCH ×4 (01:49→20:07)
[2020-10-12] MEDS: Omeprazole 20 MG Cap.CR PO SCH (06:53)
[2020-10-12 07:14] LABS: BLOOD UREA NITROGEN,BUN 5 mg/dL (7.0-18.0); CARBON DIOXIDE,CO2 24.9 mmol/L (21.0-32.0); CHLORIDE,CL 105 mmol/L (98-107); GLUCOSE RANDOM 88 mg/dL (74-106); POTASSIUM,K 3.2 mmol/L (3.5-5.1); SODIUM,NA 138 mmol/L (136-145)
[2020-10-12] MEDS: Lactulose Soln 10 GM/15 ML 15 ML UD Cup PO SCH (08:31)
[2020-10-12] MEDS: Ondansetron 4 MG/2 ML SDV IVPUSH PRN (10:01)
[2020-10-12] MEDS ORDERED: oxyCODONE 5 MG Tab PO PRN (12:16)
[2020-10-12] MEDS ORDERED: Potassium Chloride 20 MEQ Tab.ER PO ONE (12:20)
[2020-10-12] MEDS ORDERED: Magnesium Sulfate/Water 2 GM/50 ML Premix Bag IV ONE (12:21)
--- NOTE | 2020-10-12 12:23 | PCM.PN ---
- General Info Date of Service: 10/12/20 - Review of Systems Systems Review Comment:: reports abdominal pain controlled on meds - Patient Data Vitals - Most Recent: Last Vital Signs Temp 36.2 C 10/12/20 07:45 Pulse 104 H 10/12/20 07:45 Resp 17 10/12/20 07:45 BP 100/61 10/12/20 07:45 Pulse Ox 100 10/12/20 07:45 Weight - Most Recent: 48.172 kg I&O - Last 24 Hours: Intake & Output 10/11/20 10/12/20 10/12/20 22:59 06:59 14:59 Intake Total 1570 974 Output Total 400 500 Balance 1170 474 Lab Results Last 24 Hours: Laboratory Results - last 24 hr 10/12/20 10/12/20 Range/Units 05:40 05:40 WBC 6.04 (4.0-11.0) K/uL RBC 1.84 L (4.30-5.90) M/uL Hgb 8.0 L (12.0-16.0) g/dL Hct 21.6 L (36.0-46.0) % MCV 117.4 H (80.0-98.0) fL MCH 43.5 H (27.0-32.0) pg MCHC 37.0 (31.0-37.0) g/dL RDW Std Deviation 58.5 (28.0-62.0) fl RDW Coeff of Blue 14 (11.0-15.0) % Plt Count 130 L (150-400) K/uL MPV 11.80 (7.40-12.00) fL Neut % (Auto) 66.8 (48.0-80.0) % Lymph % (Auto) 18.0 (16.0-40.0) % Gosper % (Auto) 13.4 (0.0-15.0) % Eos % (Auto) 1.5 (0.0-7.0) % Baso % (Auto) 0.3 (0.0-1.5) % Neut # (Auto) 4.0 (1.4-5.7) K/uL Lymph # (Auto) 1.1 (0.6-2.4) K/uL Gosper # (Auto) 0.8 (0.0-0.8) K/uL Eos # (Auto) 0.1 (0.0-0.7) K/uL Baso # (Auto) 0.0 (0.0-0.1) K/uL Nucleated RBC % 0.0 /100WBC Nucleated RBCs # 0 K/uL Sodium 138 (136-145) mmol/L Potassium 3.2 L (3.5-5.1) mmol/L Chloride 105 (98-107) mmol/L Carbon Dioxide 24.9 (21.0-32.0) mmol/L BUN 5 L (7.0-18.0) mg/dL Creatinine 0.8 (0.6-1.0) mg/dL Est Cr Clr Drug Dosing 73.93 mL/min Estimated GFR (MDRD) > 60.0 ml/min Glucose 88 (74-106) mg/dL Calcium 7.5 L (8.5-10.1) mg/dL Phosphorus 2.5 L (2.6-4.7) mg/dL Magnesium 1.6 L (1.8-2.4) mg/dL Total Bilirubin 2.7 H (0.2-1.0) mg/dL AST 78 H (15-37) IU/L ALT 65 H (14-63) IU/L Alkaline Phosphatase 119 H (46-116) U/L Total Protein 4.5 L (6.4-8.2) g/dL Albumin 1.7 L (3.4-5.0) g/dL Globulin 2.8 (2.6-4.0) g/dL Albumin/Globulin Ratio 0.6 L (0.9-1.6) Donny Results Last 24 Hours: Microbiology 10/10/20 19:05 Urine Culture - Final Urine, Clean Catch Normal Urogenital Nina YEAST 10/10/20 23:18 Aerobic Blood Culture - Preliminary Blood - Venous - Lab Draw NO GROWTH AFTER 1 DAY Anaerobic Blood Culture - Final 10/10/20 23:02 Aerobic Blood Culture - Preliminary Blood - Venous NO GROWTH AFTER 1 DAY Anaerobic Blood Culture - Final Med Orders - Current: Current Medications Piperacillin Sod/Tazobactam (Sod 3.375 gm/ Sodium Chloride) 50 mls @ 100 mls/hr IV Q6H DENISE Last Admin: 10/12/20 08:30 Dose: 100 mls/hr Documented by: Sodium Chloride (Normal Saline) 1,000 mls @ 75 mls/hr IV Q13H [facility] Last Admin: 10/12/20 01:48 Dose: 75 mls/hr Documented by: Lactulose (Chronulac) 10 gm PO DAILY [facility] Last Admin: 10/12/20 08:31 Dose: 10 gm Documented by: Magnesium Sulfate (Magnesium Sulfate In Water Premix) 2 gm IV ONETIME ONE Stop: 10/12/20 12:22 Omeprazole (Omeprazole) 20 mg PO ACBREAKFAST [facility] Last Admin: 10/12/20 06:53 Dose: 20 mg Documented by: Ondansetron HCl (Zofran) 4 mg IVPUSH Q4H PRN PRN Reason: Nausea/Vomiting Last Admin: 10/12/20 10:01 Dose: 4 mg Documented by: Oxycodone HCl (Oxycodone) 5 mg PO Q4H PRN PRN Reason: Pain Potassium Chloride (Klor-Con M20) 40 meq PO ONETIME ONE Stop: 10/12/20 12:21 Discontinued Medications Hydromorphone HCl (Dilaudid) 1 mg IVPUSH ONETIME ONE Stop: 10/10/20 19:21 Last Admin: 10/10/20 19:29 Dose: 1 mg Documented by: Hydromorphone HCl (Dilaudid) 1 mg IVPUSH Q3H PRN PRN Reason: Pain Last Admin: 10/12/20 09:51 Dose: 1 mg Documented by: Piperacillin Sod/Tazobactam (Sod 4.5 gm/ Sodium Chloride) 100 mls @ 100 mls/hr IV ONETIME ONE Stop: 10/10/20 21:15 Last Admin: 10/10/20 20:37 Dose: 100 mls/hr Documented by: Potassium Chloride 40 meq/ (Premix) 100 mls @ 25 mls/hr IV ONETIME ONE Stop: 10/11/20 00:19 Last Admin: 10/10/20 21:02 Dose: Not Given Documented by: Potassium Chloride/Sodium Chloride (Normal Saline With 40 Meq Kcl) 1,000 mls @ 175 mls/hr IV ASDIRECTED [facility] Last Admin: 10/10/20 21:28 Dose: 175 mls/hr Documented by: Sodium Chloride (Normal Saline) 1,000 mls @ 75 mls/hr IV ASDIRECTED [facility] Last Admin: 10/11/20 13:14 Dose: 150 mls/hr Documented by: Ondansetron HCl (Zofran) 4 mg IVPUSH ONETIME ONE Stop: 10/10/20 19:36 Last Admin: 10/10/20 19:40 Dose: 4 mg Documented by: Potassium Chloride (Klor-Con M20) 40 meq PO ONETIME ONE Stop: 10/10/20 20:20 Last Admin: 10/10/20 20:25 Dose: Not Given Documented by: - Exam General: Alert, Oriented Lungs: Clear to Auscultation, Normal Respiratory Effort Cardiovascular: Regular Rate, Regular Rhythm GI/Abdominal Exam: Soft, Non-Tender, No Distention Extremities: Non-Tender, Pedal Edema (+1) Skin: Warm, Dry, Intact Sepsis Event Note - Evaluation Sepsis Screening Result: No Definite Risk - Focused Exam Vital Signs: Vital Signs Temp Pulse Resp BP Pulse Ox 10/12/20 07:45 36.2 C 104 H 17 100/61 100 10/12/20 04:00 36.6 C 86 16 105/65 98 10/12/20 00:50 36.6 C 105 H 17 101/67 100 - Problem List Review Problem List Initiated/Reviewed/Updated: Yes - My Orders Last 24 Hours: My Active Orders 10/11/20 13:44 Abdomen Ltd [US] Routine 10/11/20 14:00 Sodium Chloride 0.9% [Normal Saline] 1,000 ml IV Q13H 10/12/20 Breakfast Clear Liquid Diet [DIET] 10/12/20 12:16 oxyCODONE 5 mg PO Q4H PRN 10/12/20 12:20 Potassium Chloride [Klor-Con M20] 40 meq PO ONETIME ONE 10/12/20 12:21 Magnesium Sulfate/Water [Magnesium Sulfate in Water Premix] 2 gm IV ONETIME ON E 10/13/20 05:11 CBC WITH AUTO DIFF [HEME] AM COMPREHENSIVE METABOLIC PN,CMP [CHEM] AM MAGNESIUM [CHEM] AM PHOSPHORUS [CHEM] AM - Plan Plan:: 35 yo female with pmh of cirrhosis and colitis, who is admitted for UTI and pancreatitis Pancreatitis: Will advance to clear liquid diet and switch to PO pain medication. UTI/pancolitis: treating with Zosyn, cultures pending Cirrhosis: patient will likely need to be place on lasix once pancreatitis has resolved
[2020-10-12] MEDS ORDERED: Magnesium Sulfate/Water 2 GM/50 ML BAG IV ONE ×2 (12:45→14:15)
--- NOTE | 2020-10-12 16:05 | US ---
INDICATION: Pancreatitis. TECHNIQUE: Limited right upper quadrant ultrasound. COMPARISON: Correlation is made with an abdominopelvic CT October 05, 2020. FINDINGS: The liver is quite echogenic and enlarged. This is likely related to fatty infiltration or other intrinsic hepatic parenchymal process. The liver measures 17.6 cm in cephalocaudal extent. There is right upper quadrant ascites. There is minimal sludge in the gallbladder. The gallbladder wall is slightly thickened. This may be due to underlying liver disease. No sonographic Zepeda`s sign. Normal common bile duct of 5 mm. No hydronephrosis of the right kidney which measures 9.9 cm in length by 3.8 cm in AP dimension. The visualized inferior vena cava is grossly unremarkable. The visualized proximal aorta is grossly unremarkable. The pancreas is incompletely visualized, better seen on the prior CT October 05, 2020. IMPRESSION: 1. Abnormal appearing liver which is echogenic and enlarged. This may reflect fatty infiltration or other intrinsic hepatic parenchymal processes. 2. Mildly thick-walled gallbladder with sludge. No sonographic Zepeda`s sign. 3. Right upper quadrant ascites. 4. Incomplete visualization of the pancreas. Dictated by Kleber Nance MD @ Oct 12 2020 4:00PM Signed by Dr. Kleber Nance @ Oct 12 2020 4:04PM
[2020-10-13] MEDS: Piperacillin/Tazobactam 3.375 GM in Sodium Chloride 0.9% 50 ML IV SCH ×4 (01:19→20:26)
[2020-10-13] MEDS: HYDROmorphone 1 MG/ML Syringe IVPUSH PRN ×5 (01:23→14:44)
[2020-10-13] MEDS: Sodium Chloride 0.9% 1,000 ML IV SCH (05:12)
[2020-10-13 06:37] LABS: BLOOD UREA NITROGEN,BUN 3 mg/dL (7.0-18.0); CARBON DIOXIDE,CO2 25.6 mmol/L (21.0-32.0); CHLORIDE,CL 106 mmol/L (98-107); GLUCOSE RANDOM 89 mg/dL (74-106); POTASSIUM,K 3.2 mmol/L (3.5-5.1); SODIUM,NA 139 mmol/L (136-145)
[2020-10-13] MEDS: Omeprazole 20 MG Cap.CR PO SCH (06:59)
[2020-10-13] MEDS ORDERED: Phosphorus #1 250 MG Tab PO ONE (08:20)
[2020-10-13] MEDS ORDERED: Potassium Chloride 20 MEQ Tab.ER PO ONE (08:20)
[2020-10-13] MEDS: Lactulose Soln 10 GM/15 ML 15 ML UD Cup PO SCH (10:05)
[2020-10-13] MEDS ORDERED: Fluconazole 150 MG Tab PO ONE (10:23)
--- NOTE | 2020-10-13 11:36 | PCM.PN ---
<Anca Arceo - Last Filed: 10/13/20 11:36> - General Info Date of Service: 10/13/20 Subjective Update: pt. endorsing pain abdomen w. concerns about switching to PO meds; requesting food due to increasing appetite however Having BM in AM .o issue; more formed than usual. - Review of Systems General: Reports: No Symptoms HEENT: Reports: No Symptoms Pulmonary: Reports: No Symptoms Cardiovascular: Reports: No Symptoms, Edema Gastrointestinal: Reports: Abdominal Pain, Flatus, Nausea. Denies: Constipation, Decreased Appetite, Vomiting Genitourinary: Reports: No Symptoms Musculoskeletal: Reports: Joint Swelling Neurological: Reports: No Symptoms. Denies: Confusion, Dizziness Psychiatric: Reports: No Symptoms - Patient Data Vitals - Most Recent: Last Vital Signs Temp 97.3 F 10/13/20 07:30 Pulse 87 10/13/20 07:30 Resp 17 10/13/20 07:30 BP 94/61 10/13/20 07:30 Pulse Ox 99 10/13/20 07:30 Weight - Most Recent: 48.172 kg I&O - Last 24 Hours: Intake & Output 10/12/20 10/13/20 10/13/20 22:59 06:59 14:59 Intake Total 550 850 Output Total 350 600 Balance 200 250 Lab Results Last 24 Hours: Laboratory Results - last 24 hr 10/12/20 10/13/20 10/13/20 Range/Units 05:40 05:45 05:45 WBC 6.04 5.19 (4.0-11.0) K/uL RBC 1.84 L 2.26 L (4.30-5.90) M/uL Hgb 8.0 L 8.9 L (12.0-16.0) g/dL Hct 21.6 L 26.4 L (36.0-46.0) % MCV 117.4 H 116.8 H (80.0-98.0) fL MCH 43.5 H 39.4 H (27.0-32.0) pg MCHC 37.0 33.7 (31.0-37.0) g/dL RDW Std Deviation 58.5 58.1 (28.0-62.0) fl RDW Coeff of Blue 14 14 (11.0-15.0) % Plt Count 130 L 135 L (150-400) K/uL MPV 11.80 11.30 (7.40-12.00) fL Neut % (Auto) 66.8 (48.0-80.0) % Lymph % (Auto) 18.0 (16.0-40.0) % [place] % (Auto) 13.4 (0.0-15.0) % Eos % (Auto) 1.5 (0.0-7.0) % Baso % (Auto) 0.3 (0.0-1.5) % Neut # (Auto) 4.0 (1.4-5.7) K/uL Lymph # (Auto) 1.1 (0.6-2.4) K/uL [place] # (Auto) 0.8 (0.0-0.8) K/uL Eos # (Auto) 0.1 (0.0-0.7) K/uL Baso # (Auto) 0.0 (0.0-0.1) K/uL Add Manual Diff YES Neutrophils % (Manual) 80 (48.0-80.0) % Band Neutrophils % 1 % Lymphocytes % (Manual) 11 L (16.0-40.0) % Monocytes % (Manual) 7 (0.0-15.0) % Eosinophils % (Manual) 1 (0.0-7.0) % Nucleated RBC % 0.0 0.0 /100WBC Absolute Seg Neuts 4.2 (1.4-5.7) Band Neutrophils # 0.1 Lymphocytes # (Manual) 0.6 (0.6-2.4) Monocytes # (Manual) 0.4 (0.0-0.8) Eosinophils # (Manual) 0.1 (0.0-0.7) Nucleated RBCs # 0 0 K/uL INR Sodium 139 (136-145) mmol/L Potassium 3.2 L (3.5-5.1) mmol/L Chloride 106 (98-107) mmol/L Carbon Dioxide 25.6 (21.0-32.0) mmol/L BUN 3 L (7.0-18.0) mg/dL Creatinine 0.7 (0.6-1.0) mg/dL Est Cr Clr Drug Dosing 84.49 mL/min Estimated GFR (MDRD) > 60.0 ml/min Glucose 89 (74-106) mg/dL Calcium 7.6 L (8.5-10.1) mg/dL Phosphorus 1.6 L (2.6-4.7) mg/dL Magnesium 1.9 (1.8-2.4) mg/dL Total Bilirubin 2.6 H (0.2-1.0) mg/dL AST 91 H (15-37) IU/L ALT 66 H (14-63) IU/L Alkaline Phosphatase 125 H (46-116) U/L Total Protein 4.8 L (6.4-8.2) g/dL Albumin 1.8 L (3.4-5.0) g/dL Globulin 3.0 (2.6-4.0) g/dL Albumin/Globulin Ratio 0.6 L (0.9-1.6) 10/13/20 Range/Units 08:31 WBC (4.0-11.0) K/uL RBC (4.30-5.90) M/uL Hgb (12.0-16.0) g/dL Hct (36.0-46.0) % MCV (80.0-98.0) fL MCH (27.0-32.0) pg MCHC (31.0-37.0) g/dL RDW Std Deviation (28.0-62.0) fl RDW Coeff of Blue (11.0-15.0) % Plt Count (150-400) K/uL MPV (7.40-12.00) fL Neut % (Auto) (48.0-80.0) % Lymph % (Auto) (16.0-40.0) % [place] % (Auto) (0.0-15.0) % Eos % (Auto) (0.0-7.0) % Baso % (Auto) (0.0-1.5) % Neut # (Auto) (1.4-5.7) K/uL Lymph # (Auto) (0.6-2.4) K/uL [place] # (Auto) (0.0-0.8) K/uL Eos # (Auto) (0.0-0.7) K/uL Baso # (Auto) (0.0-0.1) K/uL Add Manual Diff Neutrophils % (Manual) (48.0-80.0) % Band Neutrophils % % Lymphocytes % (Manual) (16.0-40.0) % Monocytes % (Manual) (0.0-15.0) % Eosinophils % (Manual) (0.0-7.0) % Nucleated RBC % /100WBC Absolute Seg Neuts (1.4-5.7) Band Neutrophils # Lymphocytes # (Manual) (0.6-2.4) Monocytes # (Manual) (0.0-0.8) Eosinophils # (Manual) (0.0-0.7) Nucleated RBCs # K/uL INR 1.25 Sodium (136-145) mmol/L Potassium (3.5-5.1) mmol/L Chloride (98-107) mmol/L Carbon Dioxide (21.0-32.0) mmol/L BUN (7.0-18.0) mg/dL Creatinine (0.6-1.0) mg/dL Est Cr Clr Drug Dosing mL/min Estimated GFR (MDRD) ml/min Glucose (74-106) mg/dL Calcium (8.5-10.1) mg/dL Phosphorus (2.6-4.7) mg/dL Magnesium (1.8-2.4) mg/dL Total Bilirubin (0.2-1.0) mg/dL AST (15-37) IU/L ALT (14-63) IU/L Alkaline Phosphatase (46-116) U/L Total Protein (6.4-8.2) g/dL Albumin (3.4-5.0) g/dL Globulin (2.6-4.0) g/dL Albumin/Globulin Ratio (0.9-1.6) Donny Results Last 24 Hours: Microbiology 10/10/20 23:18 Aerobic Blood Culture - Preliminary Blood - Venous - Lab Draw NO GROWTH AFTER 2 DAYS Anaerobic Blood Culture - Final 10/10/20 23:02 Aerobic Blood Culture - Preliminary Blood - Venous NO GROWTH AFTER 2 DAYS Anaerobic Blood Culture - Final 10/10/20 19:05 Urine Culture - Final Urine, Clean Catch Normal Urogenital Nina YEAST Med Orders - Current: Current Medications Hydromorphone HCl (Dilaudid) 1 mg IVPUSH Q3H PRN PRN Reason: Pain Last Admin: 10/13/20 08:25 Dose: 1 mg Documented by: Piperacillin Sod/Tazobactam (Sod 3.375 gm/ Sodium Chloride) 50 mls @ 100 mls/hr IV Q6H [facility] Last Admin: 10/13/20 08:25 Dose: 100 mls/hr Documented by: Lactulose (Chronulac) 10 gm PO DAILY [facility] Last Admin: 10/13/20 10:05 Dose: 10 gm Documented by: Mirtazapine (Remeron) 15 mg PO BEDTIME [facility] Omeprazole (Omeprazole) 20 mg PO ACBREAKFAST [facility] Last Admin: 10/13/20 06:59 Dose: 20 mg Documented by: Ondansetron HCl (Zofran) 4 mg IVPUSH Q4H PRN PRN Reason: Nausea/Vomiting Last Admin: 10/12/20 10:01 Dose: 4 mg Documented by: Discontinued Medications Fluconazole (Diflucan) 150 mg PO ONETIME ONE Stop: 10/13/20 10:24 Last Admin: 10/13/20 11:04 Dose: 150 mg Documented by: Hydromorphone HCl (Dilaudid) 1 mg IVPUSH ONETIME ONE Stop: 10/10/20 19:21 Last Admin: 10/10/20 19:29 Dose: 1 mg Documented by: Hydromorphone HCl (Dilaudid) 1 mg IVPUSH Q3H PRN PRN Reason: Pain Last Admin: 10/12/20 09:51 Dose: 1 mg Documented by: Piperacillin Sod/Tazobactam (Sod 4.5 gm/ Sodium Chloride) 100 mls @ 100 mls/hr IV ONETIME ONE Stop: 10/10/20 21:15 Last Admin: 10/10/20 20:37 Dose: 100 mls/hr Documented by: Potassium Chloride 40 meq/ (Premix) 100 mls @ 25 mls/hr IV ONETIME ONE Stop: 10/11/20 00:19 Last Admin: 10/10/20 21:02 Dose: Not Given Documented by: Potassium Chloride/Sodium Chloride (Normal Saline With 40 Meq Kcl) 1,000 mls @ 175 mls/hr IV ASDIRECTED [facility] Last Admin: 10/10/20 21:28 Dose: 175 mls/hr Documented by: Sodium Chloride (Normal Saline) 1,000 mls @ 75 mls/hr IV ASDIRECTED [facility] Last Admin: 10/11/20 13:14 Dose: 150 mls/hr Documented by: Sodium Chloride (Normal Saline) 1,000 mls @ 75 mls/hr IV Q13H [facility] Last Admin: 10/13/20 05:12 Dose: 75 mls/hr Documented by: Magnesium Sulfate (Magnesium Sulfate In Water Premix) 2 gm in 50 mls @ 50 mls/hr IV ONETIME ONE Stop: 10/12/20 13:44 Last Admin: 10/12/20 14:52 Dose: Not Given Documented by: Magnesium Sulfate (Magnesium Sulfate In Water Premix) 2 gm in 50 mls @ 50 mls/hr IV ONETIME ONE Stop: 10/12/20 15:14 Last Admin: 10/12/20 15:26 Dose: 50 mls/hr Documented by: Ondansetron HCl (Zofran) 4 mg IVPUSH ONETIME ONE Stop: 10/10/20 19:36 Last Admin: 10/10/20 19:40 Dose: 4 mg Documented by: Oxycodone HCl (Oxycodone) 5 mg PO Q4H PRN PRN Reason: Pain Last Admin: 10/12/20 13:24 Dose: 5 mg Documented by: Potassium Chloride (Klor-Con M20) 40 meq PO ONETIME ONE Stop: 10/10/20 20:20 Last Admin: 10/10/20 20:25 Dose: Not Given Documented by: Potassium Chloride (Klor-Con M20) 40 meq PO ONETIME ONE Stop: 10/12/20 12:21 Last Admin: 10/12/20 13:23 Dose: 40 meq Documented by: Potassium Chloride (Klor-Con M20) 40 meq PO ONETIME ONE Stop: 10/13/20 08:21 Last Admin: 10/13/20 10:04 Dose: 40 meq Documented by: Sodium Phosphate (Neutra-Phos) 250 mg PO ONETIME ONE Stop: 10/13/20 08:21 Last Admin: 10/13/20 10:05 Dose: 250 mg Documented by: - Exam General: Alert, Oriented, Cooperative, No Acute Distress HEENT: EOMI Neck: Supple Lungs: Clear to Auscultation, Normal Respiratory Effort Cardiovascular: Regular Rate, Regular Rhythm GI/Abdominal Exam: Soft, Other (generalized tenderness w. minimal asciitis ; negative murphys sign; no flank tendenress ) Back Exam: Normal Inspection Extremities: Other (trace edema of l.e ) Neurological: No New Focal Deficit Psy/Mental Status: Alert Sepsis Event Note - Evaluation Sepsis Screening Result: No Definite Risk - Focused Exam Vital Signs: Vital Signs Temp Pulse Resp BP Pulse Ox 10/13/20 07:30 97.3 F 87 17 94/61 99 10/13/20 04:00 97 F 94 17 103/68 100 10/13/20 00:00 97.3 F 99 17 96/61 100 - Problem List Review Problem List Initiated/Reviewed/Updated: Yes - My Orders Last 24 Hours: My Active Orders 10/13/20 Lunch Full Liquid Diet [DIET] 10/13/20 21:00 Mirtazapine [Remeron] 15 mg PO BEDTIME - Plan Plan:: 35 yo female with pmh of cirrhosis and colitis, who is admitted for UTI and pancreatitis Pancreatitis: Will advance to clear liquid diet ; will continue IV pain meds and attempt to switch/wean to oral PRN UTI/pancolitis: Continue Zosyn, cultures pending Cirrhosis: Child -Guo score of B: follow up w. Hepatology in [place], [place] pending. Advised to abstain from ETOH x 6 months Diflucan one time today for vaginal irritation Hyomagnesemia: 2 gm Mg provided ; recheck in am JEFFREY: improving ; discontinue IV fluids Switched to Inpatient status <Kacey Jackson - Last Filed: 10/14/20 20:52> - Patient Data Vitals - Most Recent: Last Vital Signs Temp 36.2 C 10/14/20 17:00 Pulse 96 10/14/20 17:00 Resp 16 10/14/20 17:00 BP 97/59 L 10/14/20 17:00 Pulse Ox 97 10/14/20 17:00 I&O - Last 24 Hours: Intake & Output 10/14/20 10/14/20 10/14/20 06:59 14:59 22:59 Intake Total 600 0 Output Total 300 Balance 300 2049 Lab Results Last 24 Hours: Laboratory Results - last 24 hr 10/14/20 10/14/20 Range/Units 05:47 05:47 WBC 4.17 (4.0-11.0) K/uL RBC 2.35 L (4.30-5.90) M/uL Hgb 9.0 L (12.0-16.0) g/dL Hct 27.4 L (36.0-46.0) % MCV 116.6 H (80.0-98.0) fL MCH 38.3 H (27.0-32.0) pg MCHC 32.8 (31.0-37.0) g/dL RDW Std Deviation 58.7 (28.0-62.0) fl RDW Coeff of Blue 14 (11.0-15.0) % Plt Count 131 L (150-400) K/uL MPV 11.50 (7.40-12.00) fL Neut % (Auto) 66.7 (48.0-80.0) % Lymph % (Auto) 18.7 (16.0-40.0) % [place] % (Auto) 12.2 (0.0-15.0) % Eos % (Auto) 1.7 (0.0-7.0) % Baso % (Auto) 0.7 (0.0-1.5) % Neut # (Auto) 2.8 (1.4-5.7) K/uL Lymph # (Auto) 0.8 (0.6-2.4) K/uL [place] # (Auto) 0.5 (0.0-0.8) K/uL Eos # (Auto) 0.1 (0.0-0.7) K/uL Baso # (Auto) 0.0 (0.0-0.1) K/uL Nucleated RBC % 0.0 /100WBC Nucleated RBCs # 0 K/uL Sodium 138 (136-145) mmol/L Potassium 3.4 L (3.5-5.1) mmol/L Chloride 105 (98-107) mmol/L Carbon Dioxide 24.6 (21.0-32.0) mmol/L BUN 2 L (7.0-18.0) mg/dL Creatinine 0.7 (0.6-1.0) mg/dL Est Cr Clr Drug Dosing 84.49 mL/min Estimated GFR (MDRD) > 60.0 ml/min Glucose 132 H (74-106) mg/dL Calcium 7.8 L (8.5-10.1) mg/dL Total Bilirubin 2.1 H (0.2-1.0) mg/dL AST 90 H (15-37) IU/L ALT 65 H (14-63) IU/L Alkaline Phosphatase 124 H (46-116) U/L Total Protein 5.0 L (6.4-8.2) g/dL Albumin 1.7 L (3.4-5.0) g/dL Globulin 3.3 (2.6-4.0) g/dL Albumin/Globulin Ratio 0.5 L (0.9-1.6) Donny Results Last 24 Hours: Microbiology 10/10/20 23:18 Aerobic Blood Culture - Preliminary Blood - Venous - Lab Draw NO GROWTH AFTER 3 DAYS Anaerobic Blood Culture - Final 10/10/20 23:02 Aerobic Blood Culture - Preliminary Blood - Venous NO GROWTH AFTER 3 DAYS Anaerobic Blood Culture - Final Med Orders - Current: Current Medications Hydromorphone HCl (Dilaudid) 2 mg PO Q6H PRN PRN Reason: Pain Last Admin: 10/14/20 16:31 Dose: 2 mg Documented by: Lactulose (Chronulac) 10 gm PO DAILY [facility] Last Admin: 10/14/20 10:07 Dose: 10 gm Documented by: Mirtazapine (Remeron) 15 mg PO BEDTIME [facility] Last Admin: 10/14/20 20:49 Dose: Not Given Documented by: Multivitamins/Minerals/Vitamin C (Tab-A-Pedro) 1 tab PO DAILY [facility] Last Admin: 10/14/20 10:07 Dose: 1 tab Documented by: Omeprazole (Omeprazole) 20 mg PO ACBREAKFAST [facility] Last Admin: 10/14/20 06:51 Dose: 20 mg Documented by: Ondansetron HCl (Zofran) 4 mg IVPUSH Q4H PRN PRN Reason: Nausea/Vomiting Last Admin: 10/14/20 02:27 Dose: 4 mg Documented by: Discontinued Medications Fluconazole (Diflucan) 150 mg PO ONETIME ONE Stop: 10/13/20 10:24 Last Admin: 10/13/20 11:04 Dose: 150 mg Documented by: Furosemide (Lasix) 20 mg IVPUSH NOW ONE Stop: 10/14/20 11:18 Last Admin: 10/14/20 11:42 Dose: 20 mg Documented by: Hydromorphone HCl (Dilaudid) 1 mg IVPUSH ONETIME ONE Stop: 10/10/20 19:21 Last Admin: 10/10/20 19:29 Dose: 1 mg Documented by: Hydromorphone HCl (Dilaudid) 1 mg IVPUSH Q3H PRN PRN Reason: Pain Last Admin: 10/12/20 09:51 Dose: 1 mg Documented by: Hydromorphone HCl (Dilaudid) 1 mg IVPUSH Q3H PRN PRN Reason: Pain Last Admin: 10/13/20 14:44 Dose: 1 mg Documented by: Hydromorphone HCl (Dilaudid) 1 mg IVPUSH Q6H PRN PRN Reason: Pain Last Admin: 10/14/20 10:07 Dose: 1 mg Documented by: Hydromorphone HCl (Dilaudid) 1 mg IVPUSH ONETIME ONE Stop: 10/13/20 18:01 Last Admin: 10/13/20 18:03 Dose: 1 mg Documented by: Piperacillin Sod/Tazobactam (Sod 4.5 gm/ Sodium Chloride) 100 mls @ 100 mls/hr IV ONETIME ONE Stop: 10/10/20 21:15 Last Admin: 10/10/20 20:37 Dose: 100 mls/hr Documented by: Potassium Chloride 40 meq/ (Premix) 100 mls @ 25 mls/hr IV ONETIME ONE Stop: 10/11/20 00:19 Last Admin: 10/10/20 21:02 Dose: Not Given Documented by: Potassium Chloride/Sodium Chloride (Normal Saline With 40 Meq Kcl) 1,000 mls @ 175 mls/hr IV ASDIRECTED [facility] Last Admin: 10/10/20 21:28 Dose: 175 mls/hr Documented by: Piperacillin Sod/Tazobactam (Sod 3.375 gm/ Sodium Chloride) 50 mls @ 100 mls/hr IV Q6H [facility] Last Admin: 10/14/20 09:41 Dose: 100 mls/hr Documented by: Sodium Chloride (Normal Saline) 1,000 mls @ 75 mls/hr IV ASDIRECTED [facility] Last Admin: 10/11/20 13:14 Dose: 150 mls/hr Documented by: Sodium Chloride (Normal Saline) 1,000 mls @ 75 mls/hr IV Q13H [facility] Last Infusion: 10/13/20 18:34 Dose: Infused Documented by: Magnesium Sulfate (Magnesium Sulfate In Water Premix) 2 gm in 50 mls @ 50 mls/hr IV ONETIME ONE Stop: 10/12/20 13:44 Last Admin: 10/12/20 14:52 Dose: Not Given Documented by: Magnesium Sulfate (Magnesium Sulfate In Water Premix) 2 gm in 50 mls @ 50 mls/hr IV ONETIME ONE Stop: 10/12/20 15:14 Last Admin: 10/12/20 15:26 Dose: 50 mls/hr Documented by: Ondansetron HCl (Zofran) 4 mg IVPUSH ONETIME ONE Stop: 10/10/20 19:36 Last Admin: 10/10/20 19:40 Dose: 4 mg Documented by: Oxycodone HCl (Oxycodone) 5 mg PO Q4H PRN PRN Reason: Pain Last Admin: 10/12/20 13:24 Dose: 5 mg Documented by: Potassium Chloride (Klor-Con M20) 40 meq PO ONETIME ONE Stop: 10/10/20 20:20 Last Admin: 10/10/20 20:25 Dose: Not Given Documented by: Potassium Chloride (Klor-Con M20) 40 meq PO ONETIME ONE Stop: 10/12/20 12:21 Last Admin: 10/12/20 13:23 Dose: 40 meq Documented by: Potassium Chloride (Klor-Con M20) 40 meq PO ONETIME ONE Stop: 10/13/20 08:21 Last Admin: 10/13/20 10:04 Dose: 40 meq Documented by: Potassium Chloride (Klor-Con M20) 40 meq PO ONETIME ONE Stop: 10/14/20 08:28 Last Admin: 10/14/20 10:07 Dose: 40 meq Documented by: Sodium Phosphate (Neutra-Phos) 250 mg PO ONETIME ONE Stop: 10/13/20 08:21 Last Admin: 10/13/20 10:05 Dose: 250 mg Documented by: Sepsis Event Note - Focused Exam Vital Signs: Vital Signs Temp Pulse Resp BP Pulse Ox 10/14/20 17:00 36.2 C 96 16 97/59 L 97 10/14/20 13:58 36.3 C 100 18 102/62 100 10/14/20 11:50 36.6 C 94 18 103/62 100 - Problem List & Annotations (1) Pancreatitis SNOMED Code(s): 50677186 Code(s): K85.90 - ACUTE PANCREATITIS WITHOUT NECROSIS OR INFECTION, UNSP Status: Acute Current Visit: Yes Qualifiers: Chronicity: acute Pancreatitis type: unspecified pancreatitis type Acute pancreatitis complication: unspecified Qualified Code(s): K85.90 - Acute pancreatitis without necrosis or infection, unspecified (2) Alcoholic hepatitis SNOMED Code(s): 931646417 Code(s): K70.10 - ALCOHOLIC HEPATITIS WITHOUT ASCITES Status: Acute Current Visit: No (3) Ascites SNOMED Code(s): 383998922 Code(s): R18.8 - OTHER ASCITES Status: Acute Current Visit: No Qualifiers: Ascites type: other type Qualified Code(s): R18.8 - Other ascites (4) Nausea, vomiting, and diarrhea SNOMED Code(s): 3682046 Code(s): R11.2 - NAUSEA WITH VOMITING, UNSPECIFIED; R19.7 - DIARRHEA, UNSPECIFIED Status: Acute Current Visit: No (5) UTI (urinary tract infection) SNOMED Code(s): 13292283 Code(s): N39.0 - URINARY TRACT INFECTION, SITE NOT SPECIFIED Status: Acute Current Visit: Yes Qualifiers: Urinary tract infection type: acute cystitis Hematuria presence: with hematuria Qualified Code(s): N30.01 - Acute cystitis with hematuria - Plan Plan:: I have seen and evaluated the patient. I have discussed findings and treatment plan with resident. I agree with the assessment and plan in the following note.
[2020-10-13] MEDS: Ondansetron 4 MG/2 ML SDV IVPUSH PRN (11:42)
[2020-10-13] MEDS ORDERED: HYDROmorphone 1 MG/ML Syringe IVPUSH ONE (18:00)
[2020-10-13] MEDS: Mirtazapine 15 MG Tab PO SCH (20:26)
[2020-10-14] MEDS: Piperacillin/Tazobactam 3.375 GM in Sodium Chloride 0.9% 50 ML IV SCH ×2 (02:23→09:41)
[2020-10-14] MEDS: Ondansetron 4 MG/2 ML SDV IVPUSH PRN (02:27)
[2020-10-14] MEDS: HYDROmorphone 1 MG/ML Syringe IVPUSH PRN ×2 (02:28→10:07)
[2020-10-14 06:29] LABS: BLOOD UREA NITROGEN,BUN 2 mg/dL (7.0-18.0); CARBON DIOXIDE,CO2 24.6 mmol/L (21.0-32.0); CHLORIDE,CL 105 mmol/L (98-107); GLUCOSE RANDOM 132 mg/dL (74-106); POTASSIUM,K 3.4 mmol/L (3.5-5.1); SODIUM,NA 138 mmol/L (136-145)
[2020-10-14] MEDS: Omeprazole 20 MG Cap.CR PO SCH (06:51)
[2020-10-14] MEDS ORDERED: Potassium Chloride 20 MEQ Tab.ER PO ONE (08:27)
[2020-10-14] MEDS: Multivitamin Tab PO SCH (10:07)
[2020-10-14] MEDS: Lactulose Soln 10 GM/15 ML 15 ML UD Cup PO SCH (10:07)
[2020-10-14] MEDS ORDERED: Furosemide 40 MG/4 ML VIAL IVPUSH ONE (11:17)
--- NOTE | 2020-10-14 12:43 | PCM.PN ---
<Anca Arceo - Last Filed: 10/14/20 12:36> - General Info Date of Service: 10/14/20 Subjective Update: Mentions some discomfort in abdomen; better compared to yesterday. Requesting more solid foods this AM. Passing BM and urine. Mention swelling in pelvic area has not improved despite elevation and ambulation. - Review of Systems General: Reports: No Symptoms HEENT: Reports: No Symptoms Pulmonary: Reports: No Symptoms Cardiovascular: Reports: No Symptoms Gastrointestinal: Reports: Abdominal Pain, Flatus. Denies: Constipation, Diarrhea, Nausea, Vomiting Genitourinary: Reports: No Symptoms Musculoskeletal: Reports: No Symptoms Neurological: Reports: No Symptoms - Patient Data Vitals - Most Recent: Last Vital Signs Temp 97.8 F 10/14/20 11:50 Pulse 94 10/14/20 11:50 Resp 18 10/14/20 11:50 BP 103/62 10/14/20 11:50 Pulse Ox 100 10/14/20 11:50 Weight - Most Recent: 48.172 kg I&O - Last 24 Hours: Intake & Output 10/13/20 10/14/20 10/14/20 22:59 06:59 14:59 Intake Total 1300 600 Output Total 550 300 Balance 750 300 Lab Results Last 24 Hours: Laboratory Results - last 24 hr 10/14/20 10/14/20 Range/Units 05:47 05:47 WBC 4.17 (4.0-11.0) K/uL RBC 2.35 L (4.30-5.90) M/uL Hgb 9.0 L (12.0-16.0) g/dL Hct 27.4 L (36.0-46.0) % MCV 116.6 H (80.0-98.0) fL MCH 38.3 H (27.0-32.0) pg MCHC 32.8 (31.0-37.0) g/dL RDW Std Deviation 58.7 (28.0-62.0) fl RDW Coeff of Blue 14 (11.0-15.0) % Plt Count 131 L (150-400) K/uL MPV 11.50 (7.40-12.00) fL Neut % (Auto) 66.7 (48.0-80.0) % Lymph % (Auto) 18.7 (16.0-40.0) % Eddy % (Auto) 12.2 (0.0-15.0) % Eos % (Auto) 1.7 (0.0-7.0) % Baso % (Auto) 0.7 (0.0-1.5) % Neut # (Auto) 2.8 (1.4-5.7) K/uL Lymph # (Auto) 0.8 (0.6-2.4) K/uL Eddy # (Auto) 0.5 (0.0-0.8) K/uL Eos # (Auto) 0.1 (0.0-0.7) K/uL Baso # (Auto) 0.0 (0.0-0.1) K/uL Nucleated RBC % 0.0 /100WBC Nucleated RBCs # 0 K/uL Sodium 138 (136-145) mmol/L Potassium 3.4 L (3.5-5.1) mmol/L Chloride 105 (98-107) mmol/L Carbon Dioxide 24.6 (21.0-32.0) mmol/L BUN 2 L (7.0-18.0) mg/dL Creatinine 0.7 (0.6-1.0) mg/dL Est Cr Clr Drug Dosing 84.49 mL/min Estimated GFR (MDRD) > 60.0 ml/min Glucose 132 H (74-106) mg/dL Calcium 7.8 L (8.5-10.1) mg/dL Total Bilirubin 2.1 H (0.2-1.0) mg/dL AST 90 H (15-37) IU/L ALT 65 H (14-63) IU/L Alkaline Phosphatase 124 H (46-116) U/L Total Protein 5.0 L (6.4-8.2) g/dL Albumin 1.7 L (3.4-5.0) g/dL Globulin 3.3 (2.6-4.0) g/dL Albumin/Globulin Ratio 0.5 L (0.9-1.6) Donny Results Last 24 Hours: Microbiology 10/10/20 23:18 Aerobic Blood Culture - Preliminary Blood - Venous - Lab Draw NO GROWTH AFTER 3 DAYS Anaerobic Blood Culture - Final 10/10/20 23:02 Aerobic Blood Culture - Preliminary Blood - Venous NO GROWTH AFTER 3 DAYS Anaerobic Blood Culture - Final Med Orders - Current: Current Medications Hydromorphone HCl (Dilaudid) 2 mg PO Q6H PRN PRN Reason: Pain Lactulose (Chronulac) 10 gm PO DAILY [facility] Last Admin: 10/14/20 10:07 Dose: 10 gm Documented by: Mirtazapine (Remeron) 15 mg PO BEDTIME [facility] Last Admin: 10/13/20 20:26 Dose: Not Given Documented by: Multivitamins/Minerals/Vitamin C (Tab-A-Pedro) 1 tab PO DAILY [facility] Last Admin: 10/14/20 10:07 Dose: 1 tab Documented by: Omeprazole (Omeprazole) 20 mg PO ACBREAKFAST [facility] Last Admin: 10/14/20 06:51 Dose: 20 mg Documented by: Ondansetron HCl (Zofran) 4 mg IVPUSH Q4H PRN PRN Reason: Nausea/Vomiting Last Admin: 10/14/20 02:27 Dose: 4 mg Documented by: Discontinued Medications Fluconazole (Diflucan) 150 mg PO ONETIME ONE Stop: 10/13/20 10:24 Last Admin: 10/13/20 11:04 Dose: 150 mg Documented by: Furosemide (Lasix) 20 mg IVPUSH NOW ONE Stop: 10/14/20 11:18 Last Admin: 10/14/20 11:42 Dose: 20 mg Documented by: Hydromorphone HCl (Dilaudid) 1 mg IVPUSH ONETIME ONE Stop: 10/10/20 19:21 Last Admin: 10/10/20 19:29 Dose: 1 mg Documented by: Hydromorphone HCl (Dilaudid) 1 mg IVPUSH Q3H PRN PRN Reason: Pain Last Admin: 10/12/20 09:51 Dose: 1 mg Documented by: Hydromorphone HCl (Dilaudid) 1 mg IVPUSH Q3H PRN PRN Reason: Pain Last Admin: 10/13/20 14:44 Dose: 1 mg Documented by: Hydromorphone HCl (Dilaudid) 1 mg IVPUSH Q6H PRN PRN Reason: Pain Last Admin: 10/14/20 10:07 Dose: 1 mg Documented by: Hydromorphone HCl (Dilaudid) 1 mg IVPUSH ONETIME ONE Stop: 10/13/20 18:01 Last Admin: 10/13/20 18:03 Dose: 1 mg Documented by: Piperacillin Sod/Tazobactam (Sod 4.5 gm/ Sodium Chloride) 100 mls @ 100 mls/hr IV ONETIME ONE Stop: 10/10/20 21:15 Last Admin: 10/10/20 20:37 Dose: 100 mls/hr Documented by: Potassium Chloride 40 meq/ (Premix) 100 mls @ 25 mls/hr IV ONETIME ONE Stop: 10/11/20 00:19 Last Admin: 10/10/20 21:02 Dose: Not Given Documented by: Potassium Chloride/Sodium Chloride (Normal Saline With 40 Meq Kcl) 1,000 mls @ 175 mls/hr IV ASDIRECTED [facility] Last Admin: 10/10/20 21:28 Dose: 175 mls/hr Documented by: Piperacillin Sod/Tazobactam (Sod 3.375 gm/ Sodium Chloride) 50 mls @ 100 mls/hr IV Q6H [facility] Last Admin: 10/14/20 09:41 Dose: 100 mls/hr Documented by: Sodium Chloride (Normal Saline) 1,000 mls @ 75 mls/hr IV ASDIRECTED [facility] Last Admin: 10/11/20 13:14 Dose: 150 mls/hr Documented by: Sodium Chloride (Normal Saline) 1,000 mls @ 75 mls/hr IV Q13H [facility] Last Infusion: 10/13/20 18:34 Dose: Infused Documented by: Magnesium Sulfate (Magnesium Sulfate In Water Premix) 2 gm in 50 mls @ 50 mls/hr IV ONETIME ONE Stop: 10/12/20 13:44 Last Admin: 10/12/20 14:52 Dose: Not Given Documented by: Magnesium Sulfate (Magnesium Sulfate In Water Premix) 2 gm in 50 mls @ 50 mls/hr IV ONETIME ONE Stop: 10/12/20 15:14 Last Admin: 10/12/20 15:26 Dose: 50 mls/hr Documented by: Ondansetron HCl (Zofran) 4 mg IVPUSH ONETIME ONE Stop: 10/10/20 19:36 Last Admin: 10/10/20 19:40 Dose: 4 mg Documented by: Oxycodone HCl (Oxycodone) 5 mg PO Q4H PRN PRN Reason: Pain Last Admin: 10/12/20 13:24 Dose: 5 mg Documented by: Potassium Chloride (Klor-Con M20) 40 meq PO ONETIME ONE Stop: 10/10/20 20:20 Last Admin: 10/10/20 20:25 Dose: Not Given Documented by: Potassium Chloride (Klor-Con M20) 40 meq PO ONETIME ONE Stop: 10/12/20 12:21 Last Admin: 10/12/20 13:23 Dose: 40 meq Documented by: Potassium Chloride (Klor-Con M20) 40 meq PO ONETIME ONE Stop: 10/13/20 08:21 Last Admin: 10/13/20 10:04 Dose: 40 meq Documented by: Potassium Chloride (Klor-Con M20) 40 meq PO ONETIME ONE Stop: 10/14/20 08:28 Last Admin: 10/14/20 10:07 Dose: 40 meq Documented by: Sodium Phosphate (Neutra-Phos) 250 mg PO ONETIME ONE Stop: 10/13/20 08:21 Last Admin: 10/13/20 10:05 Dose: 250 mg Documented by: - Exam Quality Assessment: No: Supplemental Oxygen General: Alert, Oriented, Cooperative, No Acute Distress HEENT: EOMI Neck: Supple Lungs: Clear to Auscultation, Normal Respiratory Effort Cardiovascular: Regular Rate, Regular Rhythm, Other (+1 pitting edema of lower extremity b/l ) GI/Abdominal Exam: Soft, Non-Tender, No Organomegaly, Other (mild abdominal swelling w.o tendenress note d in LUQ > RUQ ) (Female) Exam: Other (pitting/dependant edema ; nursing staff in room ) Back Exam: Full Range of Motion Extremities: Normal Range of Motion Neurological: No New Focal Deficit Psy/Mental Status: Alert, Normal Mood Sepsis Event Note - Evaluation Sepsis Screening Result: No Definite Risk - Focused Exam Vital Signs: Vital Signs Temp Pulse Resp BP Pulse Ox 10/14/20 11:50 97.8 F 94 18 103/62 100 10/14/20 08:00 98.3 F 93 16 98/69 99 10/14/20 04:00 97.1 F 93 16 95/62 98 - Problem List Review Problem List Initiated/Reviewed/Updated: Yes - My Orders Last 24 Hours: My Active Orders 10/13/20 21:00 Mirtazapine [Remeron] 15 mg PO BEDTIME 10/14/20 09:00 Multivitamins [Tab-A-Pedro] 1 tab PO DAILY 10/15/20 05:11 CBC WITH AUTO DIFF [HEME] AM COMPREHENSIVE METABOLIC PN,CMP [CHEM] AM 10/16/20 05:11 CBC WITH AUTO DIFF [HEME] AM COMPREHENSIVE METABOLIC PN,CMP [CHEM] AM - Plan Plan:: 35 yo female with pmh of cirrhosis and colitis, who is admitted for UTI and pancreatitis Pancreatitis: Will advance to soft diet; switch to oral pain meds and attempt to switch/wean to oral PRN (oral Dilaudid) Negative UA w. yeast on Urine culture : Diflucan provided Pancolitis: advance diet as tolerated Cirrhosis: Child -Guo score of B: follow up w. Hepatology in [place] pending. Pitting edema: one time dose of 20 IV Lasix provided this AM ; recheck for response Hyomagnesemia: 2 gm Mg provided ; recheck in am JEFFREY: improving ; discontinue IV fluids Switched to Inpatient status <Kacey Jackson - Last Filed: 10/14/20 20:27> - Patient Data Vitals - Most Recent: Last Vital Signs Temp 36.2 C 10/14/20 17:00 Pulse 96 10/14/20 17:00 Resp 16 10/14/20 17:00 BP 97/59 L 10/14/20 17:00 Pulse Ox 97 10/14/20 17:00 I&O - Last 24 Hours: Intake & Output 10/14/20 10/14/20 10/14/20 06:59 14:59 22:59 Intake Total 600 0 Output Total 300 Balance 300 2049 Lab Results Last 24 Hours: Laboratory Results - last 24 hr 10/14/20 10/14/20 Range/Units 05:47 05:47 WBC 4.17 (4.0-11.0) K/uL RBC 2.35 L (4.30-5.90) M/uL Hgb 9.0 L (12.0-16.0) g/dL Hct 27.4 L (36.0-46.0) % MCV 116.6 H (80.0-98.0) fL MCH 38.3 H (27.0-32.0) pg MCHC 32.8 (31.0-37.0) g/dL RDW Std Deviation 58.7 (28.0-62.0) fl RDW Coeff of Blue 14 (11.0-15.0) % Plt Count 131 L (150-400) K/uL MPV 11.50 (7.40-12.00) fL Neut % (Auto) 66.7 (48.0-80.0) % Lymph % (Auto) 18.7 (16.0-40.0) % Eddy % (Auto) 12.2 (0.0-15.0) % Eos % (Auto) 1.7 (0.0-7.0) % Baso % (Auto) 0.7 (0.0-1.5) % Neut # (Auto) 2.8 (1.4-5.7) K/uL Lymph # (Auto) 0.8 (0.6-2.4) K/uL Eddy # (Auto) 0.5 (0.0-0.8) K/uL Eos # (Auto) 0.1 (0.0-0.7) K/uL Baso # (Auto) 0.0 (0.0-0.1) K/uL Nucleated RBC % 0.0 /100WBC Nucleated RBCs # 0 K/uL Sodium 138 (136-145) mmol/L Potassium 3.4 L (3.5-5.1) mmol/L Chloride 105 (98-107) mmol/L Carbon Dioxide 24.6 (21.0-32.0) mmol/L BUN 2 L (7.0-18.0) mg/dL Creatinine 0.7 (0.6-1.0) mg/dL Est Cr Clr Drug Dosing 84.49 mL/min Estimated GFR (MDRD) > 60.0 ml/min Glucose 132 H (74-106) mg/dL Calcium 7.8 L (8.5-10.1) mg/dL Total Bilirubin 2.1 H (0.2-1.0) mg/dL AST 90 H (15-37) IU/L ALT 65 H (14-63) IU/L Alkaline Phosphatase 124 H (46-116) U/L Total Protein 5.0 L (6.4-8.2) g/dL Albumin 1.7 L (3.4-5.0) g/dL Globulin 3.3 (2.6-4.0) g/dL Albumin/Globulin Ratio 0.5 L (0.9-1.6) Donny Results Last 24 Hours: Microbiology 10/10/20 23:18 Aerobic Blood Culture - Preliminary Blood - Venous - Lab Draw NO GROWTH AFTER 3 DAYS Anaerobic Blood Culture - Final 10/10/20 23:02 Aerobic Blood Culture - Preliminary Blood - Venous NO GROWTH AFTER 3 DAYS Anaerobic Blood Culture - Final Med Orders - Current: Current Medications Hydromorphone HCl (Dilaudid) 2 mg PO Q6H PRN PRN Reason: Pain Last Admin: 10/14/20 16:31 Dose: 2 mg Documented by: Lactulose (Chronulac) 10 gm PO DAILY [facility] Last Admin: 10/14/20 10:07 Dose: 10 gm Documented by: Mirtazapine (Remeron) 15 mg PO BEDTIME [facility] Last Admin: 10/13/20 20:26 Dose: Not Given Documented by: Multivitamins/Minerals/Vitamin C (Tab-A-Pedro) 1 tab PO DAILY [facility] Last Admin: 10/14/20 10:07 Dose: 1 tab Documented by: Omeprazole (Omeprazole) 20 mg PO ACBREAKFAST [facility] Last Admin: 10/14/20 06:51 Dose: 20 mg Documented by: Ondansetron HCl (Zofran) 4 mg IVPUSH Q4H PRN PRN Reason: Nausea/Vomiting Last Admin: 10/14/20 02:27 Dose: 4 mg Documented by: Discontinued Medications Fluconazole (Diflucan) 150 mg PO ONETIME ONE Stop: 10/13/20 10:24 Last Admin: 10/13/20 11:04 Dose: 150 mg Documented by: Furosemide (Lasix) 20 mg IVPUSH NOW ONE Stop: 10/14/20 11:18 Last Admin: 10/14/20 11:42 Dose: 20 mg Documented by: Hydromorphone HCl (Dilaudid) 1 mg IVPUSH ONETIME ONE Stop: 10/10/20 19:21 Last Admin: 10/10/20 19:29 Dose: 1 mg Documented by: Hydromorphone HCl (Dilaudid) 1 mg IVPUSH Q3H PRN PRN Reason: Pain Last Admin: 10/12/20 09:51 Dose: 1 mg Documented by: Hydromorphone HCl (Dilaudid) 1 mg IVPUSH Q3H PRN PRN Reason: Pain Last Admin: 10/13/20 14:44 Dose: 1 mg Documented by: Hydromorphone HCl (Dilaudid) 1 mg IVPUSH Q6H PRN PRN Reason: Pain Last Admin: 10/14/20 10:07 Dose: 1 mg Documented by: Hydromorphone HCl (Dilaudid) 1 mg IVPUSH ONETIME ONE Stop: 10/13/20 18:01 Last Admin: 10/13/20 18:03 Dose: 1 mg Documented by: Piperacillin Sod/Tazobactam (Sod 4.5 gm/ Sodium Chloride) 100 mls @ 100 mls/hr IV ONETIME ONE Stop: 10/10/20 21:15 Last Admin: 10/10/20 20:37 Dose: 100 mls/hr Documented by: Potassium Chloride 40 meq/ (Premix) 100 mls @ 25 mls/hr IV ONETIME ONE Stop: 10/11/20 00:19 Last Admin: 10/10/20 21:02 Dose: Not Given Documented by: Potassium Chloride/Sodium Chloride (Normal Saline With 40 Meq Kcl) 1,000 mls @ 175 mls/hr IV ASDIRECTED [facility] Last Admin: 10/10/20 21:28 Dose: 175 mls/hr Documented by: Piperacillin Sod/Tazobactam (Sod 3.375 gm/ Sodium Chloride) 50 mls @ 100 mls/hr IV Q6H [facility] Last Admin: 10/14/20 09:41 Dose: 100 mls/hr Documented by: Sodium Chloride (Normal Saline) 1,000 mls @ 75 mls/hr IV ASDIRECTED [facility] Last Admin: 10/11/20 13:14 Dose: 150 mls/hr Documented by: Sodium Chloride (Normal Saline) 1,000 mls @ 75 mls/hr IV Q13H [facility] Last Infusion: 10/13/20 18:34 Dose: Infused Documented by: Magnesium Sulfate (Magnesium Sulfate In Water Premix) 2 gm in 50 mls @ 50 mls/hr IV ONETIME ONE Stop: 10/12/20 13:44 Last Admin: 10/12/20 14:52 Dose: Not Given Documented by: Magnesium Sulfate (Magnesium Sulfate In Water Premix) 2 gm in 50 mls @ 50 mls/hr IV ONETIME ONE Stop: 10/12/20 15:14 Last Admin: 10/12/20 15:26 Dose: 50 mls/hr Documented by: Ondansetron HCl (Zofran) 4 mg IVPUSH ONETIME ONE Stop: 10/10/20 19:36 Last Admin: 10/10/20 19:40 Dose: 4 mg Documented by: Oxycodone HCl (Oxycodone) 5 mg PO Q4H PRN PRN Reason: Pain Last Admin: 10/12/20 13:24 Dose: 5 mg Documented by: Potassium Chloride (Klor-Con M20) 40 meq PO ONETIME ONE Stop: 10/10/20 20:20 Last Admin: 10/10/20 20:25 Dose: Not Given Documented by: Potassium Chloride (Klor-Con M20) 40 meq PO ONETIME ONE Stop: 10/12/20 12:21 Last Admin: 10/12/20 13:23 Dose: 40 meq Documented by: Potassium Chloride (Klor-Con M20) 40 meq PO ONETIME ONE Stop: 10/13/20 08:21 Last Admin: 10/13/20 10:04 Dose: 40 meq Documented by: Potassium Chloride (Klor-Con M20) 40 meq PO ONETIME ONE Stop: 10/14/20 08:28 Last Admin: 10/14/20 10:07 Dose: 40 meq Documented by: Sodium Phosphate (Neutra-Phos) 250 mg PO ONETIME ONE Stop: 10/13/20 08:21 Last Admin: 10/13/20 10:05 Dose: 250 mg Documented by: Sepsis Event Note - Focused Exam Vital Signs: Vital Signs Temp Pulse Resp BP Pulse Ox 10/14/20 17:00 36.2 C 96 16 97/59 L 97 10/14/20 13:58 36.3 C 100 18 102/62 100 10/14/20 11:50 36.6 C 94 18 103/62 100 - Problem List & Annotations (1) Pancreatitis SNOMED Code(s): 77360061 Code(s): K85.90 - ACUTE PANCREATITIS WITHOUT NECROSIS OR INFECTION, UNSP Status: Acute Current Visit: Yes Qualifiers: Chronicity: acute Pancreatitis type: unspecified pancreatitis type Acute pancreatitis complication: unspecified Qualified Code(s): K85.90 - Acute pancreatitis without necrosis or infection, unspecified (2) Alcoholic hepatitis SNOMED Code(s): 031800569 Code(s): K70.10 - ALCOHOLIC HEPATITIS WITHOUT ASCITES Status: Acute Current Visit: No (3) Ascites SNOMED Code(s): 496479752 Code(s): R18.8 - OTHER ASCITES Status: Acute Current Visit: No Qualifiers: Ascites type: other type Qualified Code(s): R18.8 - Other ascites (4) Nausea, vomiting, and diarrhea SNOMED Code(s): 3199315 Code(s): R11.2 - NAUSEA WITH VOMITING, UNSPECIFIED; R19.7 - DIARRHEA, UNSPECIFIED Status: Acute Current Visit: No (5) UTI (urinary tract infection) SNOMED Code(s): 28997077 Code(s): N39.0 - URINARY TRACT INFECTION, SITE NOT SPECIFIED Status: Acute Current Visit: Yes Qualifiers: Urinary tract infection type: acute cystitis Hematuria presence: with hematuria Qualified Code(s): N30.01 - Acute cystitis with hematuria - Plan Plan:: I have seen and evaluated the patient. I have discussed findings and treatment plan with resident. I agree with the assessment and plan in the following note.
[2020-10-14] MEDS: HYDROmorphone 2 MG Tab PO PRN ×2 (16:31→22:40)
[2020-10-14] MEDS: Mirtazapine 15 MG Tab PO SCH (20:49)
[2020-10-15] MEDS: HYDROmorphone 2 MG Tab PO PRN (05:05)
[2020-10-15 06:07] LABS: BLOOD UREA NITROGEN,BUN 2 mg/dL (7.0-18.0); CARBON DIOXIDE,CO2 27.5 mmol/L (21.0-32.0); CHLORIDE,CL 103 mmol/L (98-107); GLUCOSE RANDOM 97 mg/dL (74-106); POTASSIUM,K 3.4 mmol/L (3.5-5.1); SODIUM,NA 138 mmol/L (136-145)
[2020-10-15] MEDS: Omeprazole 20 MG Cap.CR PO SCH (06:32)
[2020-10-15] MEDS ORDERED: Potassium Chloride 20 MEQ Tab.ER PO ONE (08:16)
[2020-10-15] MEDS: Lactulose Soln 10 GM/15 ML 15 ML UD Cup PO SCH (09:13)
[2020-10-15] MEDS: Multivitamin Tab PO SCH (09:13)
[2020-10-15] MEDS ORDERED: Furosemide 40 MG/4 ML VIAL IVPUSH ONE (09:31)
[2020-10-15] MEDS ORDERED: Hydrocortisone 2.5% Crm 30 GM Tube PRN (10:27)
[2020-10-15] MEDS: oxyCODONE 5 MG Tab PO PRN ×3 (11:16→23:05)
--- NOTE | 2020-10-15 11:41 | PCM.PN ---
<Anca Arceo - Last Filed: 10/15/20 12:31> - General Info Date of Service: 10/15/20 Subjective Update: Bedside: mentions good pain control. Moderate response to yesterdays lasix dosing but still having some pelvic swelling. Having multiple BM and urinating w.o issue. Requesting bfast as appetitie is improving. Functional Status: Reports: Pain Controlled - Review of Systems General: Reports: No Symptoms HEENT: Reports: No Symptoms Pulmonary: Reports: No Symptoms Cardiovascular: Reports: No Symptoms Gastrointestinal: Reports: Abdominal Pain, Diarrhea, Flatus. Denies: Constipation, Decreased Appetite, Melena, Nausea, Vomiting Genitourinary: Reports: No Symptoms Musculoskeletal: Reports: No Symptoms Neurological: Denies: Confusion, Dizziness, Headache Psychiatric: Reports: No Symptoms - Patient Data Vitals - Most Recent: Last Vital Signs Temp 97 F 10/15/20 08:00 Pulse 105 H 10/15/20 08:00 Resp 17 10/15/20 08:00 BP 109/62 10/15/20 08:00 Pulse Ox 100 10/15/20 08:00 Weight - Most Recent: 48.172 kg I&O - Last 24 Hours: Intake & Output 10/14/20 10/15/20 10/15/20 22:59 06:59 14:59 Intake Total 2049 600 Output Total 700 Balance 0 -100 Lab Results Last 24 Hours: Laboratory Results - last 24 hr 10/15/20 10/15/20 Range/Units 05:31 05:31 WBC 7.19 (4.0-11.0) K/uL RBC 2.56 L (4.30-5.90) M/uL Hgb 9.9 L (12.0-16.0) g/dL Hct 30.0 L (36.0-46.0) % MCV 117.2 H (80.0-98.0) fL MCH 38.7 H (27.0-32.0) pg MCHC 33.0 (31.0-37.0) g/dL RDW Std Deviation 59.3 (28.0-62.0) fl RDW Coeff of Blue 14 (11.0-15.0) % Plt Count 164 (150-400) K/uL MPV 11.10 (7.40-12.00) fL Neut % (Auto) 61.6 (48.0-80.0) % Lymph % (Auto) 23.4 (16.0-40.0) % [place] % (Auto) 12.2 (0.0-15.0) % Eos % (Auto) 1.8 (0.0-7.0) % Baso % (Auto) 1.0 (0.0-1.5) % Neut # (Auto) 4.4 (1.4-5.7) K/uL Lymph # (Auto) 1.7 (0.6-2.4) K/uL [place] # (Auto) 0.9 H (0.0-0.8) K/uL Eos # (Auto) 0.1 (0.0-0.7) K/uL Baso # (Auto) 0.1 (0.0-0.1) K/uL Nucleated RBC % 0.0 /100WBC Nucleated RBCs # 0 K/uL Sodium 138 (136-145) mmol/L Potassium 3.4 L (3.5-5.1) mmol/L Chloride 103 (98-107) mmol/L Carbon Dioxide 27.5 (21.0-32.0) mmol/L BUN 2 L (7.0-18.0) mg/dL Creatinine 0.7 (0.6-1.0) mg/dL Est Cr Clr Drug Dosing 84.49 mL/min Estimated GFR (MDRD) > 60.0 ml/min Glucose 97 (74-106) mg/dL Calcium 8.4 L (8.5-10.1) mg/dL Total Bilirubin 2.0 H (0.2-1.0) mg/dL AST 94 H (15-37) IU/L ALT 68 H (14-63) IU/L Alkaline Phosphatase 142 H (46-116) U/L Total Protein 5.6 L (6.4-8.2) g/dL Albumin 1.9 L (3.4-5.0) g/dL Globulin 3.7 (2.6-4.0) g/dL Albumin/Globulin Ratio 0.5 L (0.9-1.6) Donny Results Last 24 Hours: Microbiology 10/10/20 23:18 Aerobic Blood Culture - Preliminary Blood - Venous - Lab Draw NO GROWTH AFTER 4 DAYS Anaerobic Blood Culture - Final 10/10/20 23:02 Aerobic Blood Culture - Preliminary Blood - Venous NO GROWTH AFTER 4 DAYS Anaerobic Blood Culture - Final Med Orders - Current: Current Medications [place] Butter/Phenylephrine (Preparation H Supp) 1 each RECTAL DAILY [facility] Hydrocortisone (Hydrocortisone 2.5% Crm) 1 gm .XX TID PRN PRN Reason: Hemorrhoids Lactulose (Chronulac) 10 gm PO DAILY [facility] Last Admin: 10/15/20 09:13 Dose: Not Given Documented by: Multivitamins/Minerals/Vitamin C (Tab-A-Pedro) 1 tab PO DAILY [facility] Last Admin: 10/15/20 09:13 Dose: 1 tab Documented by: Omeprazole (Omeprazole) 20 mg PO ACBREAKFAST [facility] Last Admin: 10/15/20 06:32 Dose: 20 mg Documented by: Ondansetron HCl (Zofran) 4 mg IVPUSH Q4H PRN PRN Reason: Nausea/Vomiting Last Admin: 10/14/20 02:27 Dose: 4 mg Documented by: Oxycodone HCl (Oxycodone) 5 mg PO Q6H PRN PRN Reason: Pain Last Admin: 10/15/20 11:16 Dose: 5 mg Documented by: Discontinued Medications Fluconazole (Diflucan) 150 mg PO ONETIME ONE Stop: 10/13/20 10:24 Last Admin: 10/13/20 11:04 Dose: 150 mg Documented by: Furosemide (Lasix) 20 mg IVPUSH NOW ONE Stop: 10/14/20 11:18 Last Admin: 10/14/20 11:42 Dose: 20 mg Documented by: Furosemide (Lasix) 40 mg IVPUSH NOW ONE Stop: 10/15/20 09:32 Last Admin: 10/15/20 10:20 Dose: 40 mg Documented by: Hydromorphone HCl (Dilaudid) 1 mg IVPUSH ONETIME ONE Stop: 10/10/20 19:21 Last Admin: 10/10/20 19:29 Dose: 1 mg Documented by: Hydromorphone HCl (Dilaudid) 1 mg IVPUSH Q3H PRN PRN Reason: Pain Last Admin: 10/12/20 09:51 Dose: 1 mg Documented by: Hydromorphone HCl (Dilaudid) 1 mg IVPUSH Q3H PRN PRN Reason: Pain Last Admin: 10/13/20 14:44 Dose: 1 mg Documented by: Hydromorphone HCl (Dilaudid) 1 mg IVPUSH Q6H PRN PRN Reason: Pain Last Admin: 10/14/20 10:07 Dose: 1 mg Documented by: Hydromorphone HCl (Dilaudid) 1 mg IVPUSH ONETIME ONE Stop: 10/13/20 18:01 Last Admin: 10/13/20 18:03 Dose: 1 mg Documented by: Hydromorphone HCl (Dilaudid) 2 mg PO Q6H PRN PRN Reason: Pain Last Admin: 10/15/20 05:05 Dose: 2 mg Documented by: Piperacillin Sod/Tazobactam (Sod 4.5 gm/ Sodium Chloride) 100 mls @ 100 mls/hr IV ONETIME ONE Stop: 10/10/20 21:15 Last Admin: 10/10/20 20:37 Dose: 100 mls/hr Documented by: Potassium Chloride 40 meq/ (Premix) 100 mls @ 25 mls/hr IV ONETIME ONE Stop: 10/11/20 00:19 Last Admin: 10/10/20 21:02 Dose: Not Given Documented by: Potassium Chloride/Sodium Chloride (Normal Saline With 40 Meq Kcl) 1,000 mls @ 175 mls/hr IV ASDIRECTED [facility] Last Admin: 10/10/20 21:28 Dose: 175 mls/hr Documented by: Piperacillin Sod/Tazobactam (Sod 3.375 gm/ Sodium Chloride) 50 mls @ 100 mls/hr IV Q6H [facility] Last Admin: 10/14/20 09:41 Dose: 100 mls/hr Documented by: Sodium Chloride (Normal Saline) 1,000 mls @ 75 mls/hr IV ASDIRECTED [facility] Last Admin: 10/11/20 13:14 Dose: 150 mls/hr Documented by: Sodium Chloride (Normal Saline) 1,000 mls @ 75 mls/hr IV Q13H [facility] Last Infusion: 10/13/20 18:34 Dose: Infused Documented by: Magnesium Sulfate (Magnesium Sulfate In Water Premix) 2 gm in 50 mls @ 50 mls/hr IV ONETIME ONE Stop: 10/12/20 13:44 Last Admin: 10/12/20 14:52 Dose: Not Given Documented by: Magnesium Sulfate (Magnesium Sulfate In Water Premix) 2 gm in 50 mls @ 50 mls /hr IV ONETIME ONE Stop: 10/12/20 15:14 Last Admin: 10/12/20 15:26 Dose: 50 mls/hr Documented by: Mirtazapine (Remeron) 15 mg PO BEDTIME [facility] Last Admin: 10/14/20 20:49 Dose: Not Given Documented by: Ondansetron HCl (Zofran) 4 mg IVPUSH ONETIME ONE Stop: 10/10/20 19:36 Last Admin: 10/10/20 19:40 Dose: 4 mg Documented by: Oxycodone HCl (Oxycodone) 5 mg PO Q4H PRN PRN Reason: Pain Last Admin: 10/12/20 13:24 Dose: 5 mg Documented by: Potassium Chloride (Klor-Con M20) 40 meq PO ONETIME ONE Stop: 10/10/20 20:20 Last Admin: 10/10/20 20:25 Dose: Not Given Documented by: Potassium Chloride (Klor-Con M20) 40 meq PO ONETIME ONE Stop: 10/12/20 12:21 Last Admin: 10/12/20 13:23 Dose: 40 meq Documented by: Potassium Chloride (Klor-Con M20) 40 meq PO ONETIME ONE Stop: 10/13/20 08:21 Last Admin: 10/13/20 10:04 Dose: 40 meq Documented by: Potassium Chloride (Klor-Con M20) 40 meq PO ONETIME ONE Stop: 10/14/20 08:28 Last Admin: 10/14/20 10:07 Dose: 40 meq Documented by: Potassium Chloride (Klor-Con M20) 20 meq PO ONETIME ONE Stop: 10/15/20 08:17 Last Admin: 10/15/20 09:13 Dose: 20 meq Documented by: Sodium Phosphate (Neutra-Phos) 250 mg PO ONETIME ONE Stop: 10/13/20 08:21 Last Admin: 10/13/20 10:05 Dose: 250 mg Documented by: - Exam Quality Assessment: No: Supplemental Oxygen General: Alert, Oriented, Cooperative HEENT: EOMI Neck: Supple Lungs: Clear to Auscultation, Normal Respiratory Effort Cardiovascular: Regular Rate, Regular Rhythm GI/Abdominal Exam: Soft, Other (diffuse abd tenderness; improved since yesterday ; decrease in edema of abdoemn/pelvis ) Back Exam: Full Range of Motion Extremities: Other (+1-2 lower extremity edema ) Neurological: No New Focal Deficit Psy/Mental Status: Alert, Normal Affect, Normal Mood Sepsis Event Note - Evaluation Sepsis Screening Result: No Definite Risk - Focused Exam Vital Signs: Vital Signs Temp Pulse Resp BP Pulse Ox 10/15/20 08:00 97 F 105 H 17 109/62 100 10/15/20 04:19 97.7 F 98 17 96/62 98 10/15/20 00:13 97.4 F 96 19 95/64 100 - Problem List & Annotations (1) Pancreatitis SNOMED Code(s): 64978964 Code(s): K85.90 - ACUTE PANCREATITIS WITHOUT NECROSIS OR INFECTION, UNSP Status: Acute Current Visit: Yes Qualifiers: Chronicity: acute Pancreatitis type: unspecified pancreatitis type Acute pancreatitis complication: unspecified Qualified Code(s): K85.90 - Acute pancreatitis without necrosis or infection, unspecified (2) Abnormal liver function test SNOMED Code(s): 631288549 Code(s): R94.5 - ABNORMAL RESULTS OF LIVER FUNCTION STUDIES Status: Acute Current Visit: No (3) Alcoholic hepatitis SNOMED Code(s): 948493448 Code(s): K70.10 - ALCOHOLIC HEPATITIS WITHOUT ASCITES Status: Acute Current Visit: No (4) Ascites SNOMED Code(s): 490795769 Code(s): R18.8 - OTHER ASCITES Status: Acute Current Visit: No Qualifiers: Ascites type: other type Qualified Code(s): R18.8 - Other ascites (5) Hepatitis SNOMED Code(s): 526242806 Code(s): K75.9 - INFLAMMATORY LIVER DISEASE, UNSPECIFIED Status: Acute Current Visit: No - Problem List Review Problem List Initiated/Reviewed/Updated: Yes - My Orders Last 24 Hours: My Active Orders 10/16/20 05:11 CBC WITH AUTO DIFF [HEME] AM COMPREHENSIVE METABOLIC PN,CMP [CHEM] AM - Plan Plan:: 35 yo female with pmh of cirrhosis and colitis, who is admitted for UTI and pancreatitis Pancreatitis: switched pain medications to PO oxycodone for pain control; advancing diet as tolerated. Appetite improving this AM Cirrhosis: good response to yesterday onetime Lasix dosing; repeat this AM and recheck response in AM Will make outpatient w. GI follow-up (hepatology referral) Hypokalemia: replete 20 meq today and recheck CMP in AM <Kacey Jackson - Last Filed: 10/15/20 23:15> - Patient Data Vitals - Most Recent: Last Vital Signs Temp 36.2 C 10/15/20 19:40 Pulse 126 H 10/15/20 19:40 Resp 19 10/15/20 19:40 BP 113/80 10/15/20 19:40 Pulse Ox 98 10/15/20 19:40 I&O - Last 24 Hours: Intake & Output 10/15/20 10/15/20 10/16/20 14:59 22:59 06:59 Intake Total 1200 Output Total 350 Balance 850 Lab Results Last 24 Hours: Laboratory Results - last 24 hr 10/15/20 10/15/20 Range/Units 05:31 05:31 WBC 7.19 (4.0-11.0) K/uL RBC 2.56 L (4.30-5.90) M/uL Hgb 9.9 L (12.0-16.0) g/dL Hct 30.0 L (36.0-46.0) % MCV 117.2 H (80.0-98.0) fL MCH 38.7 H (27.0-32.0) pg MCHC 33.0 (31.0-37.0) g/dL RDW Std Deviation 59.3 (28.0-62.0) fl RDW Coeff of Blue 14 (11.0-15.0) % Plt Count 164 (150-400) K/uL MPV 11.10 (7.40-12.00) fL Neut % (Auto) 61.6 (48.0-80.0) % Lymph % (Auto) 23.4 (16.0-40.0) % [place] % (Auto) 12.2 (0.0-15.0) % Eos % (Auto) 1.8 (0.0-7.0) % Baso % (Auto) 1.0 (0.0-1.5) % Neut # (Auto) 4.4 (1.4-5.7) K/uL Lymph # (Auto) 1.7 (0.6-2.4) K/uL [place] # (Auto) 0.9 H (0.0-0.8) K/uL Eos # (Auto) 0.1 (0.0-0.7) K/uL Baso # (Auto) 0.1 (0.0-0.1) K/uL Nucleated RBC % 0.0 /100WBC Nucleated RBCs # 0 K/uL Sodium 138 (136-145) mmol/L Potassium 3.4 L (3.5-5.1) mmol/L Chloride 103 (98-107) mmol/L Carbon Dioxide 27.5 (21.0-32.0) mmol/L BUN 2 L (7.0-18.0) mg/dL Creatinine 0.7 (0.6-1.0) mg/dL Est Cr Clr Drug Dosing 84.49 mL/min Estimated GFR (MDRD) > 60.0 ml/min Glucose 97 (74-106) mg/dL Calcium 8.4 L (8.5-10.1) mg/dL Total Bilirubin 2.0 H (0.2-1.0) mg/dL AST 94 H (15-37) IU/L ALT 68 H (14-63) IU/L Alkaline Phosphatase 142 H (46-116) U/L Total Protein 5.6 L (6.4-8.2) g/dL Albumin 1.9 L (3.4-5.0) g/dL Globulin 3.7 (2.6-4.0) g/dL Albumin/Globulin Ratio 0.5 L (0.9-1.6) Donny Results Last 24 Hours: Microbiology 10/10/20 23:18 Aerobic Blood Culture - Preliminary Blood - Venous - Lab Draw NO GROWTH AFTER 4 DAYS Anaerobic Blood Culture - Final 10/10/20 23:02 Aerobic Blood Culture - Preliminary Blood - Venous NO GROWTH AFTER 4 DAYS Anaerobic Blood Culture - Final Med Orders - Current: Current Medications [place] Butter/Phenylephrine (Preparation H Supp) 1 each RECTAL DAILY [facility] Last Admin: 10/15/20 11:45 Dose: Not Given Documented by: Hydrocortisone (Hydrocortisone 2.5% Crm) 1 gm .XX TID PRN PRN Reason: Hemorrhoids Last Admin: 10/15/20 17:20 Dose: 1 applic Documented by: Lactulose (Chronulac) 10 gm PO DAILY [facility] Last Admin: 10/15/20 09:13 Dose: Not Given Documented by: Multivitamins/Minerals/Vitamin C (Tab-A-Pedor) 1 tab PO DAILY [facility] Last Admin: 10/15/20 09:13 Dose: 1 tab Documented by: Omeprazole (Omeprazole) 20 mg PO ACBREAKFAST [facility] Last Admin: 10/15/20 06:32 Dose: 20 mg Documented by: Ondansetron HCl (Zofran) 4 mg IVPUSH Q4H PRN PRN Reason: Nausea/Vomiting Last Admin: 10/14/20 02:27 Dose: 4 mg Documented by: Oxycodone HCl (Oxycodone) 5 mg PO Q6H PRN PRN Reason: Pain Last Admin: 10/15/20 23:05 Dose: 5 mg Documented by: Discontinued Medications Fluconazole (Diflucan) 150 mg PO ONETIME ONE Stop: 10/13/20 10:24 Last Admin: 10/13/20 11:04 Dose: 150 mg Documented by: Furosemide (Lasix) 20 mg IVPUSH NOW ONE Stop: 10/14/20 11:18 Last Admin: 10/14/20 11:42 Dose: 20 mg Documented by: Furosemide (Lasix) 40 mg IVPUSH NOW ONE Stop: 10/15/20 09:32 Last Admin: 10/15/20 10:20 Dose: 40 mg Documented by: Hydromorphone HCl (Dilaudid) 1 mg IVPUSH ONETIME ONE Stop: 10/10/20 19:21 Last Admin: 10/10/20 19:29 Dose: 1 mg Documented by: Hydromorphone HCl (Dilaudid) 1 mg IVPUSH Q3H PRN PRN Reason: Pain Last Admin: 10/12/20 09:51 Dose: 1 mg Documented by: Hydromorphone HCl (Dilaudid) 1 mg IVPUSH Q3H PRN PRN Reason: Pain Last Admin: 10/13/20 14:44 Dose: 1 mg Documented by: Hydromorphone HCl (Dilaudid) 1 mg IVPUSH Q6H PRN PRN Reason: Pain Last Admin: 10/14/20 10:07 Dose: 1 mg Documented by: Hydromorphone HCl (Dilaudid) 1 mg IVPUSH ONETIME ONE Stop: 10/13/20 18:01 Last Admin: 10/13/20 18:03 Dose: 1 mg Documented by: Hydromorphone HCl (Dilaudid) 2 mg PO Q6H PRN PRN Reason: Pain Last Admin: 10/15/20 05:05 Dose: 2 mg Documented by: Piperacillin Sod/Tazobactam (Sod 4.5 gm/ Sodium Chloride) 100 mls @ 100 mls/hr IV ONETIME ONE Stop: 10/10/20 21:15 Last Admin: 10/10/20 20:37 Dose: 100 mls/hr Documented by: Potassium Chloride 40 meq/ (Premix) 100 mls @ 25 mls/hr IV ONETIME ONE Stop: 10/11/20 00:19 Last Admin: 10/10/20 21:02 Dose: Not Given Documented by: Potassium Chloride/Sodium Chloride (Normal Saline With 40 Meq Kcl) 1,000 mls @ 175 mls/hr IV ASDIRECTED [facility] Last Admin: 10/10/20 21:28 Dose: 175 mls/hr Documented by: Piperacillin Sod/Tazobactam (Sod 3.375 gm/ Sodium Chloride) 50 mls @ 100 mls/hr IV Q6H [facility] Last Admin: 10/14/20 09:41 Dose: 100 mls/hr Documented by: Sodium Chloride (Normal Saline) 1,000 mls @ 75 mls/hr IV ASDIRECTED [facility] Last Admin: 10/11/20 13:14 Dose: 150 mls/hr Documented by: Sodium Chloride (Normal Saline) 1,000 mls @ 75 mls/hr IV Q13H [facility] Last Infusion: 10/13/20 18:34 Dose: Infused Documented by: Magnesium Sulfate (Magnesium Sulfate In Water Premix) 2 gm in 50 mls @ 50 mls/hr IV ONETIME ONE Stop: 10/12/20 13:44 Last Admin: 10/12/20 14:52 Dose: Not Given Documented by: Magnesium Sulfate (Magnesium Sulfate In Water Premix) 2 gm in 50 mls @ 50 mls/hr IV ONETIME ONE Stop: 10/12/20 15:14 Last Admin: 10/12/20 15:26 Dose: 50 mls/hr Documented by: Mirtazapine (Remeron) 15 mg PO BEDTIME [facility] Last Admin: 10/14/20 20:49 Dose: Not Given Documented by: Ondansetron HCl (Zofran) 4 mg IVPUSH ONETIME ONE Stop: 10/10/20 19:36 Last Admin: 10/10/20 19:40 Dose: 4 mg Documented by: Oxycodone HCl (Oxycodone) 5 mg PO Q4H PRN PRN Reason: Pain Last Admin: 10/12/20 13:24 Dose: 5 mg Documented by: Potassium Chloride (Klor-Con M20) 40 meq PO ONETIME ONE Stop: 10/10/20 20:20 Last Admin: 10/10/20 20:25 Dose: Not Given Documented by: Potassium Chloride (Klor-Con M20) 40 meq PO ONETIME ONE Stop: 10/12/20 12:21 Last Admin: 10/12/20 13:23 Dose: 40 meq Documented by: Potassium Chloride (Klor-Con M20) 40 meq PO ONETIME ONE Stop: 10/13/20 08:21 Last Admin: 10/13/20 10:04 Dose: 40 meq Documented by: Potassium Chloride (Klor-Con M20) 40 meq PO ONETIME ONE Stop: 10/14/20 08:28 Last Admin: 10/14/20 10:07 Dose: 40 meq Documented by: Potassium Chloride (Klor-Con M20) 20 meq PO ONETIME ONE Stop: 10/15/20 08:17 Last Admin: 10/15/20 09:13 Dose: 20 meq Documented by: Sodium Phosphate (Neutra-Phos) 250 mg PO ONETIME ONE Stop: 10/13/20 08:21 Last Admin: 10/13/20 10:05 Dose: 250 mg Documented by: Sepsis Event Note - Focused Exam Vital Signs: Vital Signs Temp Pulse Resp BP Pulse Ox 10/15/20 19:40 36.2 C 126 H 19 113/80 98 10/15/20 16:00 36.4 C 104 H 16 106/68 100 10/15/20 12:00 36.3 C 97 16 98/62 98 - Problem List & Annotations (1) Pancreatitis SNOMED Code(s): 64798943 Code(s): K85.90 - ACUTE PANCREATITIS WITHOUT NECROSIS OR INFECTION, UNSP Status: Acute Current Visit: Yes Qualifiers: Chronicity: acute Pancreatitis type: unspecified pancreatitis type Acute pancreatitis complication: unspecified Qualified Code(s): K85.90 - Acute pancreatitis without necrosis or infection, unspecified (2) Alcoholic hepatitis SNOMED Code(s): 052886663 Code(s): K70.10 - ALCOHOLIC HEPATITIS WITHOUT ASCITES Status: Acute Current Visit: No (3) Ascites SNOMED Code(s): 682530859 Code(s): R18.8 - OTHER ASCITES Status: Acute Current Visit: No Qualifiers: Ascites type: other type Qualified Code(s): R18.8 - Other ascites (4) Nausea, vomiting, and diarrhea SNOMED Code(s): 9978644 Code(s): R11.2 - NAUSEA WITH VOMITING, UNSPECIFIED; R19.7 - DIARRHEA, UNSPECIFIED Status: Acute Current Visit: No (5) UTI (urinary tract infection) SNOMED Code(s): 55284837 Code(s): N39.0 - URINARY TRACT INFECTION, SITE NOT SPECIFIED Status: Acute Current Visit: Yes Qualifiers: Urinary tract infection type: acute cystitis Hematuria presence: with hematuria Qualified Code(s): N30.01 - Acute cystitis with hematuria - Plan Plan:: I have seen and evaluated the patient and agree with the residents note unless specified in my note
[2020-10-15] MEDS: Cocoa Butter/Phenylephrine Rectal Supp RECTAL SCH (11:45)
[2020-10-16] MEDS: oxyCODONE 5 MG Tab PO PRN ×3 (05:08→17:08)
[2020-10-16 06:05] LABS: BLOOD UREA NITROGEN,BUN 2 mg/dL (7.0-18.0); CARBON DIOXIDE,CO2 26.7 mmol/L (21.0-32.0); CHLORIDE,CL 104 mmol/L (98-107); GLUCOSE RANDOM 92 mg/dL (74-106); POTASSIUM,K 3.1 mmol/L (3.5-5.1); SODIUM,NA 138 mmol/L (136-145)
[2020-10-16] MEDS ORDERED: Potassium Chloride 20 MEQ Tab.ER PO ONE (07:44)
[2020-10-16] MEDS: Multivitamin Tab PO SCH (08:20)
[2020-10-16] MEDS: Omeprazole 20 MG Cap.CR PO SCH (08:20)
[2020-10-16] MEDS: Lactulose Soln 10 GM/15 ML 15 ML UD Cup PO SCH (08:21)
[2020-10-16] MEDS: Cocoa Butter/Phenylephrine Rectal Supp RECTAL SCH (08:24)
--- NOTE | 2020-10-16 12:53 | PCM.PN ---
<Anca Arceo - Last Filed: 10/16/20 12:54> - General Info Date of Service: 10/16/20 Subjective Update: Bedside: mentions some increased pain overnight and this AM after trialing to advance diet to regular diet. Has noticed more swelling in thighs and pelvis compared to her lower extremities this AM (kept legs elevated overnight) - Review of Systems General: Reports: No Symptoms HEENT: Reports: No Symptoms Pulmonary: Reports: No Symptoms Cardiovascular: Reports: Edema Gastrointestinal: Reports: Abdominal Pain, Decreased Appetite. Denies: Constipation, Diarrhea, Melena, Nausea, Vomiting Genitourinary: Reports: No Symptoms Musculoskeletal: Reports: Leg Pain Skin: Reports: No Symptoms Neurological: Reports: No Symptoms. Denies: Confusion, Dizziness Psychiatric: Reports: No Symptoms - Patient Data Vitals - Most Recent: Last Vital Signs Temp 97.7 F 10/16/20 12:27 Pulse 49 L 10/16/20 12:27 Resp 20 10/16/20 12:27 BP 114/63 10/16/20 12:27 Pulse Ox 100 10/16/20 12:27 Weight - Most Recent: 48.172 kg I&O - Last 24 Hours: Intake & Output 10/15/20 10/16/20 10/16/20 22:59 06:59 14:59 Intake Total 1200 600 Output Total 350 600 Balance 850 0 Lab Results Last 24 Hours: Laboratory Results - last 24 hr 10/16/20 10/16/20 Range/Units 05:00 05:00 WBC 4.99 (4.0-11.0) K/uL RBC 2.16 L (4.30-5.90) M/uL Hgb 8.3 L (12.0-16.0) g/dL Hct 24.9 L (36.0-46.0) % MCV 115.3 H (80.0-98.0) fL MCH 38.4 H (27.0-32.0) pg MCHC 33.3 (31.0-37.0) g/dL RDW Std Deviation 58.5 (28.0-62.0) fl RDW Coeff of Blue 14 (11.0-15.0) % Plt Count 139 L (150-400) K/uL MPV 11.70 (7.40-12.00) fL Neut % (Auto) 62.2 (48.0-80.0) % Lymph % (Auto) 24.2 (16.0-40.0) % [place] % (Auto) 11.2 (0.0-15.0) % Eos % (Auto) 1.4 (0.0-7.0) % Baso % (Auto) 1.0 (0.0-1.5) % Neut # (Auto) 3.1 (1.4-5.7) K/uL Lymph # (Auto) 1.2 (0.6-2.4) K/uL [place] # (Auto) 0.6 (0.0-0.8) K/uL Eos # (Auto) 0.1 (0.0-0.7) K/uL Baso # (Auto) 0.1 (0.0-0.1) K/uL Nucleated RBC % 0.0 /100WBC Nucleated RBCs # 0 K/uL Sodium 138 (136-145) mmol/L Potassium 3.1 L (3.5-5.1) mmol/L Chloride 104 (98-107) mmol/L Carbon Dioxide 26.7 (21.0-32.0) mmol/L BUN 2 L (7.0-18.0) mg/dL Creatinine 0.5 L (0.6-1.0) mg/dL Est Cr Clr Drug Dosing 118.29 mL/min Estimated GFR (MDRD) > 60.0 ml/min Glucose 92 (74-106) mg/dL Calcium 8.0 L (8.5-10.1) mg/dL Total Bilirubin 1.5 H (0.2-1.0) mg/dL AST 69 H (15-37) IU/L ALT 53 (14-63) IU/L Alkaline Phosphatase 110 (46-116) U/L Total Protein 4.7 L (6.4-8.2) g/dL Albumin 1.6 L (3.4-5.0) g/dL Globulin 3.1 (2.6-4.0) g/dL Albumin/Globulin Ratio 0.5 L (0.9-1.6) Donny Results Last 24 Hours: Microbiology 10/10/20 23:18 Aerobic Blood Culture - Final Blood - Venous - Lab Draw NO GROWTH AFTER 5 DAYS Anaerobic Blood Culture - Final 10/10/20 23:02 Aerobic Blood Culture - Final Blood - Venous NO GROWTH AFTER 5 DAYS Anaerobic Blood Culture - Final Med Orders - Current: Current Medications [place] Butter/Phenylephrine (Preparation H Supp) 1 each RECTAL DAILY [facility] Last Admin: 10/16/20 08:24 Dose: Not Given Documented by: Hydrocortisone (Hydrocortisone 2.5% Crm) 1 gm .XX TID PRN PRN Reason: Hemorrhoids Last Admin: 10/15/20 17:20 Dose: 1 applic Documented by: Lactulose (Chronulac) 10 gm PO DAILY [facility] Last Admin: 10/16/20 08:21 Dose: 10 gm Documented by: Multivitamins/Minerals/Vitamin C (Tab-A-Pedro) 1 tab PO DAILY [facility] Last Admin: 10/16/20 08:20 Dose: 1 tab Documented by: Omeprazole (Omeprazole) 20 mg PO ACBREAKFAST [facility] Last Admin: 10/16/20 08:20 Dose: 20 mg Documented by: Ondansetron HCl (Zofran) 4 mg IVPUSH Q4H PRN PRN Reason: Nausea/Vomiting Last Admin: 10/14/20 02:27 Dose: 4 mg Documented by: Oxycodone HCl (Oxycodone) 5 mg PO Q6H PRN PRN Reason: Pain Last Admin: 10/16/20 11:08 Dose: 5 mg Documented by: Discontinued Medications Fluconazole (Diflucan) 150 mg PO ONETIME ONE Stop: 10/13/20 10:24 Last Admin: 10/13/20 11:04 Dose: 150 mg Documented by: Furosemide (Lasix) 20 mg IVPUSH NOW ONE Stop: 10/14/20 11:18 Last Admin: 10/14/20 11:42 Dose: 20 mg Documented by: Furosemide (Lasix) 40 mg IVPUSH NOW ONE Stop: 10/15/20 09:32 Last Admin: 10/15/20 10:20 Dose: 40 mg Documented by: Hydromorphone HCl (Dilaudid) 1 mg IVPUSH ONETIME ONE Stop: 10/10/20 19:21 Last Admin: 10/10/20 19:29 Dose: 1 mg Documented by: Hydromorphone HCl (Dilaudid) 1 mg IVPUSH Q3H PRN PRN Reason: Pain Last Admin: 10/12/20 09:51 Dose: 1 mg Documented by: Hydromorphone HCl (Dilaudid) 1 mg IVPUSH Q3H PRN PRN Reason: Pain Last Admin: 10/13/20 14:44 Dose: 1 mg Documented by: Hydromorphone HCl (Dilaudid) 1 mg IVPUSH Q6H PRN PRN Reason: Pain Last Admin: 10/14/20 10:07 Dose: 1 mg Documented by: Hydromorphone HCl (Dilaudid) 1 mg IVPUSH ONETIME ONE Stop: 10/13/20 18:01 Last Admin: 10/13/20 18:03 Dose: 1 mg Documented by: Hydromorphone HCl (Dilaudid) 2 mg PO Q6H PRN PRN Reason: Pain Last Admin: 10/15/20 05:05 Dose: 2 mg Documented by: Piperacillin Sod/Tazobactam (Sod 4.5 gm/ Sodium Chloride) 100 mls @ 100 mls/hr IV ONETIME ONE Stop: 10/10/20 21:15 Last Admin: 10/10/20 20:37 Dose: 100 mls/hr Documented by: Potassium Chloride 40 meq/ (Premix) 100 mls @ 25 mls/hr IV ONETIME ONE Stop: 10/11/20 00:19 Last Admin: 10/10/20 21:02 Dose: Not Given Documented by: Potassium Chloride/Sodium Chloride (Normal Saline With 40 Meq Kcl) 1,000 mls @ [facility] Last Admin: 10/10/20 21:28 Dose: 175 mls/hr Documented by: Piperacillin Sod/Tazobactam (Sod 3.375 gm/ Sodium Chloride) 50 mls @ 100 mls/hr IV Q6H [facility] Last Admin: 10/14/20 09:41 Dose: 100 mls/hr Documented by: Sodium Chloride (Normal Saline) 1,000 mls @ 75 mls/hr IV ASDIRECTED [facility] Last Admin: 10/11/20 13:14 Dose: 150 mls/hr Documented by: Sodium Chloride (Normal Saline) 1,000 mls @ 75 mls/hr IV Q13H [facility] Last Infusion: 10/13/20 18:34 Dose: Infused Documented by: Magnesium Sulfate (Magnesium Sulfate In Water Premix) 2 gm in 50 mls @ 50 mls/hr IV ONETIME ONE Stop: 10/12/20 13:44 Last Admin: 10/12/20 14:52 Dose: Not Given Documented by: Magnesium Sulfate (Magnesium Sulfate In Water Premix) 2 gm in 50 mls @ 50 mls/hr IV ONETIME ONE Stop: 10/12/20 15:14 Last Admin: 10/12/20 15:26 Dose: 50 mls/hr Documented by: Mirtazapine (Remeron) 15 mg PO BEDTIME [facility] Last Admin: 10/14/20 20:49 Dose: Not Given Documented by: Ondansetron HCl (Zofran) 4 mg IVPUSH ONETIME ONE Stop: 10/10/20 19:36 Last Admin: 10/10/20 19:40 Dose: 4 mg Documented by: Oxycodone HCl (Oxycodone) 5 mg PO Q4H PRN PRN Reason: Pain Last Admin: 10/12/20 13:24 Dose: 5 mg Documented by: Potassium Chloride (Klor-Con M20) 40 meq PO ONETIME ONE Stop: 10/10/20 20:20 Last Admin: 10/10/20 20:25 Dose: Not Given Documented by: Potassium Chloride (Klor-Con M20) 40 meq PO ONETIME ONE Stop: 10/12/20 12:21 Last Admin: 10/12/20 13:23 Dose: 40 meq Documented by: Potassium Chloride (Klor-Con M20) 40 meq PO ONETIME ONE Stop: 10/13/20 08:21 Last Admin: 10/13/20 10:04 Dose: 40 meq Documented by: Potassium Chloride (Klor-Con M20) 40 meq PO ONETIME ONE Stop: 10/14/20 08:28 Last Admin: 10/14/20 10:07 Dose: 40 meq Documented by: Potassium Chloride (Klor-Con M20) 20 meq PO ONETIME ONE Stop: 10/15/20 08:17 Last Admin: 10/15/20 09:13 Dose: 20 meq Documented by: Potassium Chloride (Klor-Con M20) 40 meq PO ONETIME ONE Stop: 10/16/20 07:45 Last Admin: 10/16/20 08:20 Dose: 40 meq Documented by: Sodium Phosphate (Neutra-Phos) 250 mg PO ONETIME ONE Stop: 10/13/20 08:21 Last Admin: 10/13/20 10:05 Dose: 250 mg Documented by: - Exam Quality Assessment: No: Supplemental Oxygen General: Alert, Oriented, Cooperative, No Acute Distress HEENT: EOMI Neck: Supple Lungs: Clear to Auscultation, Normal Respiratory Effort Cardiovascular: Regular Rhythm, Tachycardia GI/Abdominal Exam: Soft, Other (minimal tenderness noted in RUQ; improved from yesterday ) Extremities: Other (reduced swelling in l.e ; increaed eedema noted in thighs and dependant regions e.g pelvis ) Neurological: No New Focal Deficit Psy/Mental Status: Alert Sepsis Event Note - Evaluation Sepsis Screening Result: No Definite Risk - Focused Exam Vital Signs: Vital Signs Temp Pulse Resp BP Pulse Ox 10/16/20 12:27 97.7 F 49 L 20 114/63 100 10/16/20 10:36 113 H 16 103/68 100 10/16/20 08:00 97.4 F 101 H 22 H 88/62 L 99 10/16/20 04:00 97.3 F 100 19 98/63 99 - Problem List & Annotations (1) Pancreatitis SNOMED Code(s): 77301941 Code(s): K85.90 - ACUTE PANCREATITIS WITHOUT NECROSIS OR INFECTION, UNSP Status: Acute Qualifiers: Chronicity: acute Pancreatitis type: unspecified pancreatitis type Acute pancreatitis complication: unspecified Qualified Code(s): K85.90 - Acute pancreatitis without necrosis or infection, unspecified (2) Abnormal liver function test SNOMED Code(s): 499946310 Code(s): R94.5 - ABNORMAL RESULTS OF LIVER FUNCTION STUDIES Status: Acute (3) Alcoholic hepatitis SNOMED Code(s): 205009901 Code(s): K70.10 - ALCOHOLIC HEPATITIS WITHOUT ASCITES Status: Acute (4) Ascites SNOMED Code(s): 110229279 Code(s): R18.8 - OTHER ASCITES Status: Acute Qualifiers: Ascites type: other type Qualified Code(s): R18.8 - Other ascites (5) Hepatitis SNOMED Code(s): 499732039 Code(s): K75.9 - INFLAMMATORY LIVER DISEASE, UNSPECIFIED Status: Acute - Problem List Review Problem List Initiated/Reviewed/Updated: Yes - My Orders Last 24 Hours: My Active Orders 10/15/20 12:33 Communication Order [RC] STAT - Plan Plan:: I have seen and evaluated the patient and agree with the residents note unless specified in my note 35 yo female with pmh of cirrhosis and colitis, who is admitted for pancreatitis Pancreatitis: switched pain medications to PO oxycodone for pain control; return to soft diet as advancing last night increased pain; continue current pain regimen as is . Edema of l.e : may trial small 20 mg IV push dose this AM ; if pressures continue to improve Cirrhosis: repeat lasix this AM and recheck response in AM Will make outpatient w. GI follow-up (hepatology referral) Hypokalemia: replete 20 meq today and recheck CMP in AM <Kacey Jackson - Last Filed: 10/17/20 18:02> - Patient Data Vitals - Most Recent: Last Vital Signs Temp 37.1 C 10/16/20 16:00 Pulse 103 H 10/16/20 16:00 Resp 22 H 10/16/20 16:00 BP 102/65 10/16/20 16:00 Pulse Ox 98 10/16/20 16:00 Med Orders - Current: Current Medications Discontinued Medications [place] Butter/Phenylephrine (Preparation H Supp) 1 each RECTAL DAILY [facility] Last Admin: 10/16/20 08:24 Dose: Not Given Documented by: Fluconazole (Diflucan) 150 mg PO ONETIME ONE Stop: 10/13/20 10:24 Last Admin: 10/13/20 11:04 Dose: 150 mg Documented by: Furosemide (Lasix) 20 mg IVPUSH NOW ONE Stop: 10/14/20 11:18 Last Admin: 10/14/20 11:42 Dose: 20 mg Documented by: Furosemide (Lasix) 40 mg IVPUSH NOW ONE Stop: 10/15/20 09:32 Last Admin: 10/15/20 10:20 Dose: 40 mg Documented by: Furosemide (Lasix) 20 mg IVPUSH NOW ONE Stop: 10/16/20 14:15 Last Admin: 10/16/20 14:42 Dose: 20 mg Documented by: Hydrocortisone (Hydrocortisone 2.5% Crm) 1 gm .XX TID PRN PRN Reason: Hemorrhoids Last Admin: 10/15/20 17:20 Dose: 1 applic Documented by: Hydromorphone HCl (Dilaudid) 1 mg IVPUSH ONETIME ONE Stop: 12/11/20 19:21 Last Admin: 10/10/20 19:29 Dose: 1 mg Documented by: Hydromorphone HCl (Dilaudid) 1 mg IVPUSH Q3H PRN PRN Reason: Pain Last Admin: 10/12/20 09:51 Dose: 1 mg Documented by: Hydromorphone HCl (Dilaudid) 1 mg IVPUSH Q3H PRN PRN Reason: Pain Last Admin: 10/13/20 14:44 Dose: 1 mg Documented by: Hydromorphone HCl (Dilaudid) 1 mg IVPUSH Q6H PRN PRN Reason: Pain Last Admin: 10/14/20 10:07 Dose: 1 mg Documented by: Hydromorphone HCl (Dilaudid) 1 mg IVPUSH ONETIME ONE Stop: 10/13/20 18:01 Last Admin: 10/13/20 18:03 Dose: 1 mg Documented by: Hydromorphone HCl (Dilaudid) 2 mg PO Q6H PRN PRN Reason: Pain Last Admin: 10/15/20 05:05 Dose: 2 mg Documented by: Piperacillin Sod/Tazobactam (Sod 4.5 gm/ Sodium Chloride) 100 mls @ 100 mls/hr IV ONETIME ONE Stop: 10/10/20 21:15 Last Admin: 10/10/20 20:37 Dose: 100 mls/hr Documented by: Potassium Chloride 40 meq/ (Premix) 100 mls @ 25 mls/hr IV ONETIME ONE Stop: 10/11/20 00:19 Last Admin: 10/10/20 21:02 Dose: Not Given Documented by: Potassium Chloride/Sodium Chloride (Normal Saline With 40 Meq Kcl) 1,000 mls @ 175 mls/hr IV ASDIRECTED [facility] Last Admin: 10/10/20 21:28 Dose: 175 mls/hr Documented by: Piperacillin Sod/Tazobactam (Sod 3.375 gm/ Sodium Chloride) 50 mls @ 100 mls/hr IV Q6H [facility] Last Admin: 10/14/20 09:41 Dose: 100 mls/hr Documented by: Sodium Chloride (Normal Saline) 1,000 mls @ 75 mls/hr IV ASDIRECTED [facility] Last Admin: 10/11/20 13:14 Dose: 150 mls/hr Documented by: Sodium Chloride (Normal Saline) 1,000 mls @ 75 mls/hr IV Q13H [facility] Last Infusion: 10/13/20 18:34 Dose: Infused Documented by: Magnesium Sulfate (Magnesium Sulfate In Water Premix) 2 gm in 50 mls @ 50 ml s/hr IV ONETIME ONE Stop: 10/12/20 13:44 Last Admin: 10/12/20 14:52 Dose: Not Given Documented by: Magnesium Sulfate (Magnesium Sulfate In Water Premix) 2 gm in 50 mls @ 50 mls/hr IV ONETIME ONE Stop: 10/12/20 15:14 Last Admin: 10/12/20 15:26 Dose: 50 mls/hr Documented by: Lactulose (Chronulac) 10 gm PO DAILY [facility] Last Admin: 10/16/20 08:21 Dose: 10 gm Documented by: Mirtazapine (Remeron) 15 mg PO BEDTIME [facility] Last Admin: 10/14/20 20:49 Dose: Not Given Documented by: Multivitamins/Minerals/Vitamin C (Tab-A-Pedro) 1 tab PO DAILY [facility] Last Admin: 10/16/20 08:20 Dose: 1 tab Documented by: Omeprazole (Omeprazole) 20 mg PO ACBREAKFAST [facility] Last Admin: 10/16/20 08:20 Dose: 20 mg Documented by: Ondansetron HCl (Zofran) 4 mg IVPUSH ONETIME ONE Stop: 10/10/20 19:36 Last Admin: 10/10/20 19:40 Dose: 4 mg Documented by: Ondansetron HCl (Zofran) 4 mg IVPUSH Q4H PRN PRN Reason: Nausea/Vomiting Last Admin: 10/14/20 02:27 Dose: 4 mg Documented by: Oxycodone HCl (Oxycodone) 5 mg PO Q4H PRN PRN Reason: Pain Last Admin: 10/12/20 13:24 Dose: 5 mg Documented by: Oxycodone HCl (Oxycodone) 5 mg PO Q6H PRN PRN Reason: Pain Last Admin: 10/16/20 17:08 Dose: 5 mg Documented by: Potassium Chloride (Klor-Con M20) 40 meq PO ONETIME ONE Stop: 10/10/20 20:20 Last Admin: 10/10/20 20:25 Dose: Not Given Documented by: Potassium Chloride (Klor-Con M20) 40 meq PO ONETIME ONE Stop: 10/12/20 12:21 Last Admin: 10/12/20 13:23 Dose: 40 meq Documented by: Potassium Chloride (Klor-Con M20) 40 meq PO ONETIME ONE Stop: 10/13/20 08:21 Last Admin: 10/13/20 10:04 Dose: 40 meq Documented by: Potassium Chloride (Klor-Con M20) 40 meq PO ONETIME ONE Stop: 10/14/20 08:28 Last Admin: 10/14/20 10:07 Dose: 40 meq Documented by: Potassium Chloride (Klor-Con M20) 20 meq PO ONETIME ONE Stop: 10/15/20 08:17 Last Admin: 10/15/20 09:13 Dose: 20 meq Documented by: Potassium Chloride (Klor-Con M20) 40 meq PO ONETIME ONE Stop: 10/16/20 07:45 Last Admin: 10/16/20 08:20 Dose: 40 meq Documented by: Sodium Phosphate (Neutra-Phos) 250 mg PO ONETIME ONE Stop: 10/13/20 08:21 Last Admin: 10/13/20 10:05 Dose: 250 mg Documented by: - Problem List & Annotations (1) Pancreatitis SNOMED Code(s): 26114903 Code(s): K85.90 - ACUTE PANCREATITIS WITHOUT NECROSIS OR INFECTION, UNSP Status: Acute Qualifiers: Chronicity: acute Pancreatitis type: unspecified pancreatitis type Acute pancreatitis complication: unspecified Qualified Code(s): K85.90 - Acute pancreatitis without necrosis or infection, unspecified (2) Alcoholic hepatitis SNOMED Code(s): 111037561 Code(s): K70.10 - ALCOHOLIC HEPATITIS WITHOUT ASCITES Status: Acute (3) Ascites SNOMED Code(s): 863321494 Code(s): R18.8 - OTHER ASCITES Status: Acute Qualifiers: Ascites type: other type Qualified Code(s): R18.8 - Other ascites (4) Nausea, vomiting, and diarrhea SNOMED Code(s): 8300278 Code(s): R11.2 - NAUSEA WITH VOMITING, UNSPECIFIED; R19.7 - DIARRHEA, UNSPECIFIED Status: Acute (5) UTI (urinary tract infection) SNOMED Code(s): 42261734 Code(s): N39.0 - URINARY TRACT INFECTION, SITE NOT SPECIFIED Status: Acute Qualifiers: Urinary tract infection type: acute cystitis Hematuria presence: with hematuria Qualified Code(s): N30.01 - Acute cystitis with hematuria - Plan Plan:: I have seen and evaluated the patient and agree with the residents note unless specified in my note
[2020-10-16] MEDS ORDERED: Furosemide 40 MG/4 ML VIAL IVPUSH ONE (14:14)
--- NOTE | 2020-10-16 18:09 | PCM.DCSUM1 ---
Discharge Summary - Hospital Course Free Text/Narrative:: 35 yo female with pmh of ETOH abuse and cirrhosis who was admitted 10/05-10/08 for pancolitis/UTI/ascities. Patient had CT scan that showed pancolitis, she received paracentesis and was treated with Zosyn. She was discharged on Ciprofloxacin and Flagyl. PAtient returns with similar abdominal pain and feeling of bloating with myalgias. She was found to have a UTI and lipase of 830. Hospital course. Pancreatitis: continued IV fluids. Started pain control via IV and was ultimately switched over to p.o. oxycodone after advancing diet to soft diet. Lower extremity and abdominal edema appreciated with as needed doses of Lasix given throughout stay; fluid retention improved however patient was given outpatient PRN doses of lasix 20 daily PRN. Electrolytes repleted as needed. Day 3 of admission patient was endorsing increasing appetite and was tolerating oxycodone every 6 hours. Patient requested discharge. Oxycodone for 5 days up until GI follow-up with Rebekah scheduled. Advised to avoid alcohol and advancing diet as tolerated. Completed course of abx. for UTI. ADvised to follow up with PCP and GI specialty. Appointment scheduled (patient made her own appointment) pt requested discharge. discharged in stable condition - Discharge Data Discharge Date: 10/16/20 Discharge Disposition: Home, Self-Care 01 Condition: Fair - Referral to Home Health Primary Care Physician: Amber Goldsmith NP - Discharge Diagnosis/Problem(s) (1) Pancreatitis SNOMED Code(s): 39201651 ICD Code: K85.90 - ACUTE PANCREATITIS WITHOUT NECROSIS OR INFECTION, UNSP Status: Acute Qualifiers: Chronicity: acute Pancreatitis type: unspecified pancreatitis type Acute pancreatitis complication: unspecified Qualified Code(s): K85.90 - Acute pancreatitis without necrosis or infection, unspecified (2) Abnormal liver function test SNOMED Code(s): 023113244 ICD Code: R94.5 - ABNORMAL RESULTS OF LIVER FUNCTION STUDIES Status: Acute (3) Alcoholic hepatitis SNOMED Code(s): 887490227 ICD Code: K70.10 - ALCOHOLIC HEPATITIS WITHOUT ASCITES Status: Acute (4) Ascites SNOMED Code(s): 081224111 ICD Code: R18.8 - OTHER ASCITES Status: Acute Qualifiers: Ascites type: other type Qualified Code(s): R18.8 - Other ascites (5) Hepatitis SNOMED Code(s): 428519872 ICD Code: K75.9 - INFLAMMATORY LIVER DISEASE, UNSPECIFIED Status: Acute - Patient Instructions Diet: No Alcoholic Beverages, GI Soft/Low Residue/Low Fiber Fluid Restriction: 2000 mL Notify Provider of: Fever, Swelling and Redness - Discharge Plan *PRESCRIPTION DRUG MONITORING PROGRAM REVIEWED*: Yes *COPY OF PRESCRIPTION DRUG MONITORING REPORT IN PATIENT TATE: No Prescriptions/Med Rec: Furosemide 20 mg PO DAILY PRN 10 Days #10 tablet PRN Reason: Edema oxyCODONE 5 mg PO Q6H PRN 6 Days #24 tablet PRN Reason: Pain Home Medications: Home Meds Omeprazole 20 mg PO ACBREAKFAST 10/06/20 [History] Lactulose 10 gm PO DAILY #300 ml 10/08/20 [Rx] Ondansetron [Zofran] 4 mg PO Q8H PRN #18 tab 10/08/20 [Rx] traMADol [Ultram] 50 mg PO TID PRN #18 tab 10/08/20 [Rx] Lasara Butter/Phenylephrine [Preparation H] 1 each RECTAL DAILY supp 10/16/20 [Rx] Furosemide 20 mg PO DAILY PRN 10 Days #10 tablet 10/16/20 [Rx] Multivitamins [Tab-A-Pedro] 1 tab PO DAILY tablet 10/16/20 [Rx] oxyCODONE 5 mg PO Q6H PRN 6 Days #24 tablet 10/16/20 [Rx] Oxygen Therapy Mode: Room Air Patient Handouts: Furosemide tablets, Acute Pancreatitis, [id number], Oxycodone tablets or capsules Referrals: Amber Goldsmith NP [Primary Care Provider] - 10/21/20 10:15 am - Discharge Summary/Plan Comment DC Time >30 min.: No - Patient Data Vitals - Most Recent: Last Vital Signs Temp 98.7 F 10/16/20 16:00 Pulse 103 H 10/16/20 16:00 Resp 22 H 10/16/20 16:00 BP 102/65 10/16/20 16:00 Pulse Ox 98 10/16/20 16:00 Weight - Most Recent: 48.172 kg I&O - Last 24 hours: Intake & Output 10/16/20 10/16/20 10/16/20 06:59 14:59 22:59 Intake Total 600 Output Total 600 Balance 0 Lab Results - Last 24 hrs: Laboratory Results - last 24 hr 10/16/20 10/16/20 Range/Units 05:00 05:00 WBC 4.99 (4.0-11.0) K/uL RBC 2.16 L (4.30-5.90) M/uL Hgb 8.3 L (12.0-16.0) g/dL Hct 24.9 L (36.0-46.0) % MCV 115.3 H (80.0-98.0) fL MCH 38.4 H (27.0-32.0) pg MCHC 33.3 (31.0-37.0) g/dL RDW Std Deviation 58.5 (28.0-62.0) fl RDW Coeff of Blue 14 (11.0-15.0) % Plt Count 139 L (150-400) K/uL MPV 11.70 (7.40-12.00) fL Neut % (Auto) 62.2 (48.0-80.0) % Lymph % (Auto) 24.2 (16.0-40.0) % [place] % (Auto) 11.2 (0.0-15.0) % Eos % (Auto) 1.4 (0.0-7.0) % Baso % (Auto) 1.0 (0.0-1.5) % Neut # (Auto) 3.1 (1.4-5.7) K/uL Lymph # (Auto) 1.2 (0.6-2.4) K/uL [place] # (Auto) 0.6 (0.0-0.8) K/uL Eos # (Auto) 0.1 (0.0-0.7) K/uL Baso # (Auto) 0.1 (0.0-0.1) K/uL Nucleated RBC % 0.0 /100WBC Nucleated RBCs # 0 K/uL Sodium 138 (136-145) mmol/L Potassium 3.1 L (3.5-5.1) mmol/L Chloride 104 (98-107) mmol/L Carbon Dioxide 26.7 (21.0-32.0) mmol/L BUN 2 L (7.0-18.0) mg/dL Creatinine 0.5 L (0.6-1.0) mg/dL Est Cr Clr Drug Dosing 118.29 mL/min Estimated GFR (MDRD) > 60.0 ml/min Glucose 92 (74-106) mg/dL Calcium 8.0 L (8.5-10.1) mg/dL Total Bilirubin 1.5 H (0.2-1.0) mg/dL AST 69 H (15-37) IU/L ALT 53 (14-63) IU/L Alkaline Phosphatase 110 (46-116) U/L Total Protein 4.7 L (6.4-8.2) g/dL Albumin 1.6 L (3.4-5.0) g/dL Globulin 3.1 (2.6-4.0) g/dL Albumin/Globulin Ratio 0.5 L (0.9-1.6) IAN Results - Last 24 hrs: Microbiology 10/10/20 23:18 Aerobic Blood Culture - Final Blood - Venous - Lab Draw NO GROWTH AFTER 5 DAYS Anaerobic Blood Culture - Final 10/10/20 23:02 Aerobic Blood Culture - Final Blood - Venous NO GROWTH AFTER 5 DAYS Anaerobic Blood Culture - Final Med Orders - Current: Current Medications Lasara Butter/Phenylephrine (Preparation H Supp) 1 each RECTAL DAILY [facility] Last Admin: 10/16/20 08:24 Dose: Not Given Documented by: Hydrocortisone (Hydrocortisone 2.5% Crm) 1 gm .XX TID PRN PRN Reason: Hemorrhoids Last Admin: 10/15/20 17:20 Dose: 1 applic Documented by: Lactulose (Chronulac) 10 gm PO DAILY [facility] Last Admin: 10/16/20 08:21 Dose: 10 gm Documented by: Multivitamins/Minerals/Vitamin C (Tab-A-Pedro) 1 tab PO DAILY [facility]ISE Last Admin: 10/16/20 08:20 Dose: 1 tab Documented by: Omeprazole (Omeprazole) 20 mg PO ACBREAKFAST [facility] Last Admin: 10/16/20 08:20 Dose: 20 mg Documented by: Ondansetron HCl (Zofran) 4 mg IVPUSH Q4H PRN PRN Reason: Nausea/Vomiting Last Admin: 10/14/20 02:27 Dose: 4 mg Documented by: Oxycodone HCl (Oxycodone) 5 mg PO Q6H PRN PRN Reason: Pain Last Admin: 10/16/20 17:08 Dose: 5 mg Documented by: Discontinued Medications Fluconazole (Diflucan) 150 mg PO ONETIME ONE Stop: 10/13/20 10:24 Last Admin: 10/13/20 11:04 Dose: 150 mg Documented by: Furosemide (Lasix) 20 mg IVPUSH NOW ONE Stop: 10/14/20 11:18 Last Admin: 10/14/20 11:42 Dose: 20 mg Documented by: Furosemide (Lasix) 40 mg IVPUSH NOW ONE Stop: 10/15/20 09:32 Last Admin: 10/15/20 10:20 Dose: 40 mg Documented by: Furosemide (Lasix) 20 mg IVPUSH NOW ONE Stop: 10/16/20 14:15 Last Admin: 10/16/20 14:42 Dose: 20 mg Documented by: Hydromorphone HCl (Dilaudid) 1 mg IVPUSH ONETIME ONE Stop: 10/10/20 19:21 Last Admin: 10/10/20 19:29 Dose: 1 mg Documented by: Hydromorphone HCl (Dilaudid) 1 mg IVPUSH Q3H PRN PRN Reason: Pain Last Admin: 10/12/20 09:51 Dose: 1 mg Documented by: Hydromorphone HCl (Dilaudid) 1 mg IVPUSH Q3H PRN PRN Reason: Pain Last Admin: 10/13/20 14:44 Dose: 1 mg Documented by: Hydromorphone HCl (Dilaudid) 1 mg IVPUSH Q6H PRN PRN Reason: Pain Last Admin: 10/14/20 10:07 Dose: 1 mg Documented by: Hydromorphone HCl (Dilaudid) 1 mg IVPUSH ONETIME ONE Stop: 10/13/20 18:01 Last Admin: 10/13/20 18:03 Dose: 1 mg Documented by: Hydromorphone HCl (Dilaudid) 2 mg PO Q6H PRN PRN Reason: Pain Last Admin: 10/15/20 05:05 Dose: 2 mg Documented by: Piperacillin Sod/Tazobactam (Sod 4.5 gm/ Sodium Chloride) 100 mls @ 100 mls/hr IV ONETIME ONE Stop: 10/10/20 21:15 Last Admin: 10/10/20 20:37 Dose: 100 mls/hr Documented by: Potassium Chloride 40 meq/ (Premix) 100 mls @ 25 mls/hr IV ONETIME ONE Stop: 10/11/20 00:19 Last Admin: 10/10/20 21:02 Dose: Not Given Documented by: Potassium Chloride/Sodium Chloride (Normal Saline With 40 Meq Kcl) 1,000 mls @ 175 mls/hr IV ASDIRECTED [facility] Last Admin: 10/10/20 21:28 Dose: 175 mls/hr Documented by: Piperacillin Sod/Tazobactam (Sod 3.375 gm/ Sodium Chloride) 50 mls @ 100 mls/hr IV Q6H [facility] Last Admin: 10/14/20 09:41 Dose: 100 mls/hr Documented by: Sodium Chloride (Normal Saline) 1,000 mls @ 75 mls/hr IV ASDIRECTED [facility] Last Admin: 10/11/20 13:14 Dose: 150 mls/hr Documented by: Sodium Chloride (Normal Saline) 1,000 mls @ 75 mls/hr IV Q13H [facility] Last Infusion: 10/13/20 18:34 Dose: Infused Documented by: Magnesium Sulfate (Magnesium Sulfate In Water Premix) 2 gm in 50 mls @ 50 mls/hr IV ONETIME ONE Stop: 10/12/20 13:44 Last Admin: 10/12/20 14:52 Dose: Not Given Documented by: Magnesium Sulfate (Magnesium Sulfate In Water Premix) 2 gm in 50 mls @ 50 mls/hr IV ONETIME ONE Stop: 10/12/20 15:14 Last Admin: 10/12/20 15:26 Dose: 50 mls/hr Documented by: Mirtazapine (Remeron) 15 mg PO BEDTIME DENISE Last Admin: 10/14/20 20:49 Dose: Not Given Documented by: Ondansetron HCl (Zofran) 4 mg IVPUSH ONETIME ONE Stop: 10/10/20 19:36 Last Admin: 10/10/20 19:40 Dose: 4 mg Documented by: Oxycodone HCl (Oxycodone) 5 mg PO Q4H PRN PRN Reason: Pain Last Admin: 10/12/20 13:24 Dose: 5 mg Documented by: Potassium Chloride (Klor-Con M20) 40 meq PO ONETIME ONE Stop: 10/10/20 20:20 Last Admin: 10/10/20 20:25 Dose: Not Given Documented by: Potassium Chloride (Klor-Con M20) 40 meq PO ONETIME ONE Stop: 10/12/20 12:21 Last Admin: 10/12/20 13:23 Dose: 40 meq Documented by: Potassium Chloride (Klor-Con M20) 40 meq PO ONETIME ONE Stop: 10/13/20 08:21 Last Admin: 10/13/20 10:04 Dose: 40 meq Documented by: Potassium Chloride (Klor-Con M20) 40 meq PO ONETIME ONE Stop: 10/14/20 08:28 Last Admin: 10/14/20 10:07 Dose: 40 meq Documented by: Potassium Chloride (Klor-Con M20) 20 meq PO ONETIME ONE Stop: 10/15/20 08:17 Last Admin: 10/15/20 09:13 Dose: 20 meq Documented by: Potassium Chloride (Klor-Con M20) 40 meq PO ONETIME ONE Stop: 10/16/20 07:45 Last Admin: 10/16/20 08:20 Dose: 40 meq Documented by: Sodium Phosphate (Neutra-Phos) 250 mg PO ONETIME ONE Stop: 10/13/20 08:21 Last Admin: 10/13/20 10:05 Dose: 250 mg Documented by:
== END 2020-10-16 18:30 | disposition home or self-care (01) | DRG 282 ==
LOC: MW.ED 18:28 → MW.MS 20:16 → OBSVTOIN 10-13 14:35
PROVIDERS: ADMIT Internal Medicine; ATTEND Internal Medicine
DX: K85.90 Acute pancreatitis without necrosis or infection, unspecified (principal); N30.01 Acute cystitis with hematuria; R94.5 Abnormal results of liver function studies; K70.11 Alcoholic hepatitis with ascites; M54.9 Dorsalgia, unspecified; G89.29 Other chronic pain; E83.42 Hypomagnesemia; K51.00 Ulcerative (chronic) pancolitis without complications; N17.9 Acute kidney failure, unspecified; K74.60 Unspecified cirrhosis of liver; Z79.899 Other long term (current) drug therapy; Z88.5 Allergy status to narcotic agent
CPT/HCPCS: 36415; 76705; 76705-26; 80053; 81001; 81025; 83605; 83690; 83735; 84100; 85025; 85610; 87040; 87086; 96361; 96365; 96367; 96375; 96376; 99284-25; 99285; A9270-GY; G0378; J1170; J1940; J2405; J2543; J3475; J3480; J7030; J7050

== ENCOUNTER 2020-11-06 16:53 | Emergency (ER) | payer BC ==
[2020-11-06] MEDS ORDERED: Acetaminophen/oxyCODONE 325-5 MG Tab PO ONE (17:35)
[2020-11-06] MEDS ORDERED: Octyl 2-Cyanoacrylate 1 Tube TOP ONE (17:35)
--- NOTE | 2020-11-06 17:37 | EDM.PDOC ---
ED HPI GENERAL MEDICAL PROBLEM - General Chief Complaint: General Stated Complaint: PROCUDURE COMPLICATIONS Time Seen by Provider: 11/06/20 17:14 Source of Information: Reports: Patient History Limitations: Reports: No Limitations - History of Present Illness INITIAL COMMENTS - FREE TEXT/NARRATIVE: Is a 35-year-old female with history of liver cirrhosis who presents today for l eaking from her paracentesis site. Patient gets weekly paracentesis done at [facility]. States that since her paracentesis yesterday she has had a constant leak that she cannot stop at home. Patient does report some abdominal pain has had abdominal pain for the past few days. Patient denies any fever chills nausea vomiting or other complaints. abdomen Pain Score (Numeric/FACES): 9 - Related Data Allergies Allergy/AdvReac Type Severity Reaction Status Date / Time codeine Allergy Mild Nausea and Verified 11/06/20 17:16 Vomiting Home Meds: Home Meds Omeprazole 20 mg PO BIDAC 10/06/20 [History] Ondansetron [Zofran] 4 mg PO Q8H PRN #18 tab 10/08/20 [Rx] traMADol [Ultram] 50 mg PO TID PRN #18 tab 10/08/20 [Rx] [place] Butter/Phenylephrine [Preparation H] 1 each RECTAL DAILY supp 10/16/20 [Rx] Furosemide 20 mg PO DAILY PRN 10 Days #10 tablet 10/16/20 [Rx] Multivitamins [Tab-A-Pedro] 1 tab PO DAILY tablet 10/16/20 [Rx] oxyCODONE 5 mg PO Q6H PRN 6 Days #24 tablet 10/16/20 [Rx] Albuterol Sulfate [Albuterol Sulfate Hfa] 2 puff INH Q4HRRT PRN 11/06/20 [History] Escitalopram [Lexapro] 10 mg PO DAILY 11/06/20 [History] Famotidine 20 mg PO DAILY 11/06/20 [History] Lactulose 10 gm PO BID PRN 11/06/20 [History] busPIRone [Buspar] 15 mg PO TID PRN 11/06/20 [History] Past Medical History HEENT History: Reports: None Other HEENT History: Yellow sclera Respiratory History: Reports: Other (See Below) Other Respiratory History: pluerisy Gastrointestinal History: Reports: Cirrhosis, Other (See Below) Other Gastrointestinal History: heartburn Genitourinary History: Reports: Other (See Below) Other Genitourinary History: yeast infection during [employer] History: Reports: Musculoskeletal History: Reports: Back Pain, Chronic Other Musculoskeletal History: hx herniated disc in lower back Psychiatric History: Reports: Anxiety Oncologic (Cancer) History: Reports: Cervix - Infectious Disease History Infectious Disease History: Reports: Chicken Pox, Influenza, Novel Coronavirus - Past Surgical History HEENT Surgical History: Reports: Oral Surgery Other HEENT Surgeries/Procedures: teeth removed at 26 years of age wears dentures Respiratory Surgical History: Reports: None GI Surgical History: Reports: Other (See Below) Other GI Surgeries/Procedures: weekly paracenthesis in [facility] Female Surgical History: Reports: None Musculoskeletal Surgical History: Reports: None Oncologic Surgical History: Reports: Other (See Below) Other Oncologic Surgeries/Procedures: LEEP Social & Family History - Family History Family Medical History: No Pertinent Family History HEENT: Reports: Cataract, Glaucoma, Impaired Vision Cardiac: Reports: CAD, High Cholesterol, Hypertension GI: Reports: Cholelithiasis, Hepatitis OBGYN: Reports: Endometriosis Musculoskeletal: Reports: Arthritis, Back pain, Chronic, Neck Pain, Chronic, Osteoarthritis, RA Neurological: Reports: Alzheimers Disease, Dementia, Parkinson's Psychiatric: Reports: ADD, ADHD, Anxiety, Depression, Emotional Problems, Learning Disability, Mood Swings, Panic Attack Endocrine/Metabolic: Reports: Diabetes, type II, Hyperthyroidism Oncologic: Reports: Leukemia - Tobacco Use Tobacco Use Status *Q: Never Tobacco User Second Hand Smoke Exposure: No - Caffeine Use Caffeine Use: Reports: None - Recreational Drug Use Recreational Drug Use: No ED ROS GENERAL - Review of Systems Review Of Systems: See Below Constitutional: Reports: No Symptoms HEENT: Reports: No Symptoms Respiratory: Reports: No Symptoms Cardiovascular: Reports: No Symptoms Endocrine: Reports: No Symptoms GI/Abdominal: Reports: Abdominal Pain : Reports: No Symptoms Musculoskeletal: Reports: No Symptoms Skin: Reports: No Symptoms Neurological: Reports: No Symptoms Psychiatric: Reports: No Symptoms Hematologic/Lymphatic: Reports: No Symptoms Immunologic: Reports: No Symptoms ED EXAM, GENERAL - Physical Exam Exam: See Below Exam Limited By: No Limitations General Appearance: Alert, WD/WN, No Apparent Distress Eye Exam: Bilateral Eye: EOMI, PERRL Respiratory/Chest: No Respiratory Distress, Lungs Clear Cardiovascular: Normal Peripheral Pulses, Regular Rate, Rhythm GI/Abdominal: Soft, Distended, Tender Neurological: Alert, Oriented, CN II-XII Intact, Normal Cognition, Normal Gait Course - Vital Signs Last Recorded V/S: Last Vital Signs Temp 96.9 F 11/06/20 17:09 Pulse 93 11/06/20 18:29 Resp 16 11/06/20 18:29 BP 102/70 11/06/20 18:29 Pulse Ox 100 11/06/20 18:29 - Orders/Labs/Meds Meds: Medications Discontinued Medications Generic Name Dose Route Start Last Admin Trade Name Tanvir PRN Reason Stop Dose Admin Octyl Cyanoacrylate 1 applic 11/06/20 17:35 11/06/20 17:48 Dermabond Advance TOP 11/06/20 17:36 1 applic ONETIME ONE Administration Oxycodone/Acetaminophen 1 tab 11/06/20 17:35 11/06/20 17:47 Percocet 325-5 Mg PO 11/06/20 17:36 1 tab ONETIME ONE Administration - Re-Assessments/Exams Free Text/Narrative Re-Assessment/Exam: 11/06/20 18:43 Applied Dermabond to the area and the bleeding has stopped. We also put a call out to her interventional radiology to confirm and to make sure that they are analyzing her paracentesis fluid. Departure - Departure Time of Disposition: 18:42 Disposition: Home, Self-Care 01 Condition: Good Clinical Impression: Status post abdominal paracentesis - Discharge Information *PRESCRIPTION DRUG MONITORING PROGRAM REVIEWED*: Not Applicable *COPY OF PRESCRIPTION DRUG MONITORING REPORT IN PATIENT TATE: Not Applicable Referrals: Amber Goldsmith NP [Primary Care Provider] - Forms: ED Department Discharge Additional Instructions: The following information is given to patients seen in the emergency department who are being discharged to home. This information is to outline your options for follow-up care. We provide all patients seen in our emergency department with a follow-up referral. The need for follow-up, as well as the timing and circumstances, are variable depending upon the specifics of your emergency department visit. If you don't have a primary care physician on staff, we will provide you with a referral. We always advise you to contact your personal physician following an emergency department visit to inform them of the circumstance of the visit and for follow-up with them and/or the need for any referrals to a consulting specialist. The emergency department will also refer you to a specialist when appropriate. This referral assures that you have the opportunity for follow-up care with a specialist. All of these measure are taken in an effort to provide you with optimal care, which includes your follow-up. Under all circumstances we always encourage you to contact your private physician who remains a resource for coordinating your care. When calling for follow-up care, please make the office aware that this follow-up is from your recent emergency room visit. If for any reason you are refused follow-up, please contact the [facility] Emergency Department at and asked to speak to the emergency department charge nurse. Please follow up with your primary care physician. If you do not have a primary care physician, see below: [facility] [address] [place] [id number] [facility] [address] [place] [id number] Continue to follow-up with your primary care physician and [facility]. If you have any increased nausea vomiting abdominal pain or fevers chills please return to the ED. Sepsis Event Note (ED) - Evaluation Sepsis Screening Result: No Definite Risk - Focused Exam Vital Signs: Vital Signs Temp Pulse Resp BP Pulse Ox 11/06/20 18:29 93 16 102/70 100 11/06/20 17:09 96.9 F 95 17 102/52 L 100 - Assessment/Plan Assessment:: Is a 35-year-old female who presents today for leaking from a paracentesis site. Patient does have abdominal pain begins weekly paracentesis. Patient also believes that her fluid that is tapped is also analyzed weekly. There is some concern for SBP but it for also hospitalist already testing the fluid and has not found the infection will likely not complete a paracentesis today. Will use Dermabond to stop the leaking.
== END 2020-11-06 19:08 | disposition home or self-care (01) ==
LOC: MW.ED 16:53
DX: Z48.817 Encounter for surgical aftercare following surgery on the skin and subcutaneous tissue (principal); F41.9 Anxiety disorder, unspecified; Z88.5 Allergy status to narcotic agent; Z79.899 Other long term (current) drug therapy
CPT/HCPCS: 99283; A9270-GY

== ENCOUNTER 2020-11-11 14:41 | Emergency (ER) | payer BC ==
--- NOTE | 2020-11-11 15:27 | EDM.PDOC ---
ED HPI GENERAL MEDICAL PROBLEM - General Chief Complaint: Gastrointestinal Problem Stated Complaint: DOG JUMPED ON STOMACH, ABOMINAL PAIN, THROWING UP Time Seen by Provider: 11/11/20 14:43 Source of Information: Reports: Patient History Limitations: Reports: No Limitations - History of Present Illness INITIAL COMMENTS - FREE TEXT/NARRATIVE: Presents to the emergency room stating that her 70 pound dog jumped on top of her abdomen yesterday. Since that time she has had more intense pain over her right abdomen above baseline along with some nausea, vomiting x1 and hematuria. She states that hematuria has since cleared. This patient has a history of alcoholic cirrhosis with ascites. She will go for a paracentesis on Tuesday as she usually is drained weekly. She is followed by Dr. [facility]th[facility] in [place]. Abdominal Pain Score (Numeric/FACES): 6 - Related Data Allergies Allergy/AdvReac Type Severity Reaction Status Date / Time codeine Allergy Mild Nausea and Verified 11/11/20 15:01 Vomiting Home Meds: Home Meds Omeprazole 20 mg PO BIDAC 10/06/20 [History] [place] Butter/Phenylephrine [Preparation H] 1 each RECTAL DAILY supp 10/16/20 [Rx] Furosemide 20 mg PO DAILY PRN 10 Days #10 tablet 10/16/20 [Rx] Multivitamins [Tab-A-Pedro] 1 tab PO DAILY tablet 10/16/20 [Rx] oxyCODONE 5 mg PO Q6H PRN 6 Days #24 tablet 10/16/20 [Rx] Albuterol Sulfate [Albuterol Sulfate Hfa] 2 puff INH Q4HRRT PRN 11/06/20 [History] Escitalopram [Lexapro] 10 mg PO DAILY 11/06/20 [History] Famotidine 20 mg PO DAILY 11/06/20 [History] Lactulose 10 gm PO BID PRN 11/06/20 [History] busPIRone [Buspar] 15 mg PO TID PRN 11/06/20 [History] LORazepam [Ativan] 0.5 mg PO ASDIRECTED 11/11/20 [History] Past Medical History HEENT History: Reports: None Other HEENT History: Yellow sclera Respiratory History: Reports: Other (See Below) Other Respiratory History: pluerisy Gastrointestinal History: Reports: Cirrhosis, Other (See Below) Other Gastrointestinal History: heartburn Genitourinary History: Reports: Other (See Below) Other Genitourinary History: 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: Musculoskeletal History: Reports: Back Pain, Chronic Other Musculoskeletal History: hx herniated disc in lower back Psychiatric History: Reports: Anxiety Oncologic (Cancer) History: Reports: Cervix - Infectious Disease History Infectious Disease History: Reports: Chicken Pox, Influenza, Novel Coronavirus - Past Surgical History HEENT Surgical History: Reports: Oral Surgery Other HEENT Surgeries/Procedures: teeth removed at 26 years of age wears dentures Respiratory Surgical History: Reports: None GI Surgical History: Reports: Other (See Below) Other GI Surgeries/Procedures: weekly paracenthesis in [place]-Radiology Dept Female Surgical History: Reports: None Musculoskeletal Surgical History: Reports: None Oncologic Surgical History: Reports: Other (See Below) Other Oncologic Surgeries/Procedures: LEEP Social & Family History - Family History Family Medical History: No Pertinent Family History HEENT: Reports: Cataract, Glaucoma, Impaired Vision Cardiac: Reports: CAD, High Cholesterol, Hypertension GI: Reports: Cholelithiasis, Hepatitis OBGYN: Reports: Endometriosis Musculoskeletal: Reports: Arthritis, Back pain, Chronic, Neck Pain, Chronic, Osteoarthritis, RA Neurological: Reports: Alzheimers Disease, Dementia, Parkinson's Psychiatric: Reports: ADD, ADHD, Anxiety, Depression, Emotional Problems, Learning Disability, Mood Swings, Panic Attack Endocrine/Metabolic: Reports: Diabetes, type II, Hyperthyroidism Oncologic: Reports: Leukemia - Tobacco Use Tobacco Use Status *Q: Never Tobacco User - Caffeine Use Caffeine Use: Reports: None - Recreational Drug Use Recreational Drug Use: No ED ROS GENERAL - Review of Systems Review Of Systems: Comprehensive ROS is negative, except as noted in HPI. ED EXAM, GI/ABD - Physical Exam Exam: See Below Exam Limited By: No Limitations General Appearance: Alert, No Apparent Distress Ears: Normal External Exam Nose: Normal Inspection Throat/Mouth: Normal Inspection Head: Atraumatic, Normocephalic Neck: Normal Inspection Respiratory/Chest: No Respiratory Distress, Lungs Clear, Normal Breath Sounds Cardiovascular: Normal Peripheral Pulses, Regular Rate, Rhythm, No Murmur, Other (Plus pitting edema to the lower legs ankles and forefeet) GI/Abdominal Exam: Distended, Other (Diffuse tenderness. I do appreciate more tenderness on the right than the left side of the abdomen. There is no e cchymosis, lesion erythema.) Back Exam: Normal Inspection Extremities: Pedal Edema (2+) Neurological: Alert, Oriented Psychiatric: Normal Affect, Normal Mood Skin Exam: Warm, Dry, Intact, Normal Color, No Rash Lymphatic: No Adenopathy Course - Vital Signs Last Recorded V/S: Last Vital Signs Temp 36.1 C 11/11/20 15:03 Pulse 99 11/11/20 16:18 Resp 17 11/11/20 16:18 BP 94/64 11/11/20 16:18 Pulse Ox 100 11/11/20 16:18 - Orders/Labs/Meds Labs: Laboratory Tests 11/11/20 11/11/20 Range/Units 15:08 15:46 Sodium 143 (136-145) mmol/L Potassium 4.2 (3.5-5.1) mmol/L Chloride 108 H (98-107) mmol/L Carbon Dioxide 28.6 (21.0-32.0) mmol/L BUN 6 L (7.0-18.0) mg/dL Creatinine 0.5 L (0.6-1.0) mg/dL Est Cr Clr Drug Dosing 121.41 mL/min Estimated GFR (MDRD) > 60.0 ml/min Glucose 89 (74-106) mg/dL Calcium 8.4 L (8.5-10.1) mg/dL Total Bilirubin 0.5 (0.2-1.0) mg/dL AST 58 H (15-37) IU/L ALT 37 (14-63) IU/L Alkaline Phosphatase 116 (46-116) U/L Total Protein 6.1 L (6.4-8.2) g/dL Albumin 1.9 L (3.4-5.0) g/dL Globulin 4.2 H (2.6-4.0) g/dL Albumin/Globulin Ratio 0.5 L (0.9-1.6) Urine Color YELLOW Urine Appearance CLEAR Urine pH 7.5 (5.0-8.0) Ur Specific [place] 1.015 (1.001-1.035) Urine Protein NEGATIVE (NEGATIVE) mg/dL Urine Glucose (UA) NEGATIVE (NEGATIVE) mg/dL Urine Ketones NEGATIVE (NEGATIVE) mg/dL Urine Occult Blood NEGATIVE (NEGATIVE) Urine Nitrite NEGATIVE (NEGATIVE) Urine Bilirubin NEGATIVE (NEGATIVE) Urine Urobilinogen 0.2 (<2.0) EU/dL Ur Leukocyte Esterase NEGATIVE (NEGATIVE) Meds: Medications Discontinued Medications Generic Name Dose Route Start Last Admin Trade Name Tanvir PRN Reason Stop Dose Admin Fentanyl 50 mcg 11/11/20 16:29 Sublimaze IM 11/11/20 16:30 ONETIME ONE Departure - Departure Time of Disposition: 16:34 Disposition: Home, Self-Care 01 Condition: Good Clinical Impression: Ascites due to alcoholic cirrhosis - Discharge Information Referrals: Amber Goldsmith NP [Primary Care Provider] - Forms: ED Department Discharge Additional Instructions: The following information is given to patients seen in the emergency department who are being discharged to home. This information is to outline your options for follow-up care. We provide all patients seen in our emergency department with a follow-up referral. The need for follow-up, as well as the timing and circumstances, are variable depending upon the specifics of your emergency department visit. If you don't have a primary care physician on staff, we will provide you with a referral. We always advise you to contact your personal physician following an emergency department visit to inform them of the circumstance of the visit and for follow-up with them and/or the need for any referrals to a consulting specialist. The emergency department will also refer you to a specialist when appropriate. This referral assures that you have the opportunity for follow-up care with a specialist. All of these measure are taken in an effort to provide you with optimal care, which includes your follow-up. Under all circumstances we always encourage you to contact your private physician who remains a resource for coordinating your care. When calling for follow-up care, please make the office aware that this follow-up is from your recent emergency room visit. If for any reason you are refused follow-up, please contact the [facility] Emergency Department at and asked to speak to the emergency department charge nurse. 1. Follow up with GI on Tuesday as previously scheduled. Sepsis Event Note (ED) - Evaluation Sepsis Screening Result: No Definite Risk - Focused Exam Vital Signs: Vital Signs Temp Pulse Resp BP Pulse Ox 11/11/20 16:18 99 17 94/64 100 11/11/20 15:03 36.1 C 96 16 99/58 L 98
[2020-11-11 16:17] LABS: BLOOD UREA NITROGEN,BUN 6 mg/dL (7.0-18.0); CARBON DIOXIDE,CO2 28.6 mmol/L (21.0-32.0); CHLORIDE,CL 108 mmol/L (98-107); GLUCOSE RANDOM 89 mg/dL (74-106); POTASSIUM,K 4.2 mmol/L (3.5-5.1); SODIUM,NA 143 mmol/L (136-145)
[2020-11-11] MEDS: fentaNYL 100 MCG/2 ML SDV IM ONE (16:54)
== END 2020-11-11 17:06 | disposition home or self-care (01) ==
LOC: MW.ED 14:41
DX: K70.31 Alcoholic cirrhosis of liver with ascites (principal); Z88.5 Allergy status to narcotic agent; Z79.899 Other long term (current) drug therapy
CPT/HCPCS: 36415; 80053; 81003; 96372; 99284; J3010; 99282

== ENCOUNTER 2020-11-15 20:50 | Observation (INO) | payer BC ==
[2020-11-15] MEDS ORDERED: HYDROmorphone 1 MG/ML Syringe IVPUSH ONE (21:22)
[2020-11-15] MEDS ORDERED: Sodium Chloride 0.9% 2.5 ML Syringe FLUSH PRN (21:22)
[2020-11-15] MEDS ORDERED: Sodium Chloride 0.9% 10 ML Syringe FLUSH PRN (21:22)
[2020-11-15] MEDS ORDERED: Ondansetron 4 MG/2 ML SDV IVPUSH ONE (21:22)
--- NOTE | 2020-11-15 21:27 | EDM.PDOC ---
ED HPI GENERAL MEDICAL PROBLEM - General Chief Complaint: Abdominal Pain Stated Complaint: NAUSEA,DIZZINESS,CIRRHOSIS Time Seen by Provider: 11/15/20 21:03 - History of Present Illness INITIAL COMMENTS - FREE TEXT/NARRATIVE: History of present illness: [] The patient complains of abdominal pain. Yesterday she had paracentesis. She has it weekly now. She was diagnosed with cirrhosis and ascites on October 05. After yesterday's tap she has discomfort in her abdomen. Since yesterday she has a new and sharper pain than usual after paracentesis. Has nausea. She has normal BMs. The patient fall today and landed on her stomach while she was shopping and this exacerbated the pain. The pain is worse now. She has vomited twice. The patient's cirrhosis was a result of chronic alcohol use. She gets cared for by a GI doctor and [place]. Review of systems: As per history of present illness and below otherwise all systems reviewed and negative. Past medical history: As per history of present illness and as reviewed below otherwise noncontributory. Surgical history: As per history of present illness and as reviewed below otherwise noncontributory. Social history: No reported history of drug or alcohol abuse. Family history: As per history of present illness and as reviewed below otherwise noncontributory. Physical exam: Constitutional - well developed, well-nourished and in no acute distress HEENT - normocephalic, no evidence of trauma - external nose and mouth normal - no mass in neck and no JVD - mucosae moist EYES - full EOM, PERRL, no icterus - no evidence of inflammation, injection, or drainage Respiratory - no respiratory distress, equal bilateral expansion, lungs clear to auscultation and no abnormal lung sounds Cardiovascular - Regular Rhythm with S1 and S2 appreciated and no murmur, gallop or rub. GI - abdomen soft with slight distension - normal bowel sounds - no guard or rebound tender diffusely Musculoskeletal no gross deformity of long bones or joints - no tenderness, s welling or edema Neurologic - Alert and oriented times four - CN II-XII grossly intact - motor sensory and coordination symmetrically normal Psychiatric - appropriate mood and affect with normal thought content Hematologic - No petechiae or purpura - mucosa appropriate color and sclera not pale - normal nail bed color and refill Integument - no rash or evidence of trauma - normal turgor Diagnostics: [] Therapeutics: [] Impression: [] Plan: [] Definitive disposition and diagnosis as appropriate pending reevaluation and review of above. Abdomen Pain Score (Numeric/FACES): 9 - Related Data Allergies Allergy/AdvReac Type Severity Reaction Status Date / Time codeine Allergy Mild Nausea and Verified 11/15/20 21:00 Vomiting Home Meds: Home Meds Omeprazole 20 mg PO BIDAC 10/06/20 [History] [place] Butter/Phenylephrine [Preparation H] 1 each RECTAL DAILY supp 10/16/20 [Rx] Furosemide 20 mg PO DAILY PRN 10 Days #10 tablet 10/16/20 [Rx] Multivitamins [Tab-A-Pedro] 1 tab PO DAILY tablet 10/16/20 [Rx] oxyCODONE 5 mg PO Q6H PRN 6 Days #24 tablet 10/16/20 [Rx] Albuterol Sulfate [Albuterol Sulfate Hfa] 2 puff INH Q4HRRT PRN 11/06/20 [History] Escitalopram [Lexapro] 10 mg PO DAILY 11/06/20 [History] Famotidine 20 mg PO DAILY 11/06/20 [History] Lactulose 10 gm PO BID PRN 11/06/20 [History] busPIRone [Buspar] 15 mg PO TID PRN 11/06/20 [History] LORazepam [Ativan] 0.5 mg PO ASDIRECTED 11/11/20 [History] Past Medical History HEENT History: Reports: None Other HEENT History: Yellow sclera Cardiovascular History: Reports: None Respiratory History: Reports: Other (See Below) Other Respiratory History: Pluerisy Gastrointestinal History: Reports: Cirrhosis, Other (See Below) Other Gastrointestinal History: heartburn Genitourinary History: Reports: Other (See Below) 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: Musculoskeletal History: Reports: Back Pain, Chronic Other Musculoskeletal History: hx herniated disc in lower back Neurological History: Reports: None Psychiatric History: Reports: Anxiety 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 Hematologic History: Reports: None Immunologic History: Reports: None Oncologic (Cancer) History: Reports: Cervix Dermatologic History: Reports: None - Infectious Disease History Infectious Disease History: Reports: Chicken Pox, Influenza, Novel Coronavirus - Past Surgical History Head Surgeries/Procedures: Reports: None HEENT Surgical History: Reports: Oral Surgery Other HEENT Surgeries/Procedures: teeth removed at 26 years of age wears dentures Respiratory Surgical History: Reports: None GI Surgical History: Reports: Other (See Below) Other GI Surgeries/Procedures: Weekly paracentesis in [place]-Radiology Dept Female Surgical History: Reports: None Musculoskeletal Surgical History: Reports: None Oncologic Surgical History: Reports: Other (See Below) Other Oncologic Surgeries/Procedures: LEEP Social & Family History - Family History Family Medical History: No Pertinent Family History HEENT: Reports: Cataract, Glaucoma, Impaired Vision Cardiac: Reports: CAD, High Cholesterol, Hypertension GI: Reports: Cholelithiasis, Hepatitis OBGYN: Reports: Endometriosis Musculoskeletal: Reports: Arthritis, Back pain, Chronic, Neck Pain, Chronic, Osteoarthritis, RA Neurological: Reports: Alzheimers Disease, Dementia, Parkinson's Psychiatric: Reports: ADD, ADHD, Anxiety, Depression, Emotional Problems, Learning Disability, Mood Swings, Panic Attack Endocrine/Metabolic: Reports: Diabetes, type II, Hyperthyroidism Oncologic: Reports: Leukemia - Tobacco Use Tobacco Use Status *Q: Former Tobacco User Used Tobacco, but Quit: No - Caffeine Use Caffeine Use: Reports: None - Recreational Drug Use Recreational Drug Use: No ED ROS GENERAL - Review of Systems Review Of Systems: Comprehensive ROS is negative, except as noted in HPI. ED EXAM, GENERAL - Physical Exam Exam: See Below Free Text/Narrative:: My physical exam is in the HPI Course - Vital Signs Text/Narrative:: [id number] patient requiring repeat parenteral pain medicine. Patient not taking p.o. yet. Patient has ascites on the CT but not enough to actually safely obtain it by paracentesis in the supine position. Case discussed with Dr. Jackson and patient admitted to obs on telemetry. Hydration to be aggressively undertaken and she will reassess the patient. Last Recorded V/S: Last Vital Signs Temp 36.1 C 11/15/20 21:00 Pulse 121 H 11/15/20 23:32 Resp 18 11/15/20 23:32 BP 92/59 L 11/15/20 23:32 Pulse Ox 100 11/15/20 23:32 - Orders/Labs/Meds Orders: Active Orders 24 hr Category Date Time Status Admission Status [Patient Status] [ADT] Stat ADT 11/15/20 23:37 Ordered UA W/IAN RFLX IF INDICATED [URIN] Stat Lab 11/15/20 23:31 Ordered Sodium Chloride 0.9% [Normal Saline] 500 ml Med 11/15/20 23:45 Ordered IV .BOLUS Sodium Chloride 0.9% [Saline Flush] Med 11/15/20 21:22 Active 10 ml FLUSH ASDIRECTED PRN Sodium Chloride 0.9% [Saline Flush] Med 11/15/20 21:22 Active 2.5 ml FLUSH ASDIRECTED PRN Saline Lock Insert [OM.PC] Stat Oth 11/15/20 21:22 Ordered Medication Orders Sodium Chloride (Normal Saline) 500 mls @ 1,000 mls/hr IV .BOLUS DENISE Sodium Chloride (Saline Flush) 10 ml FLUSH ASDIRECTED PRN PRN Reason: Keep Vein Open Sodium Chloride (Saline Flush) 2.5 ml FLUSH ASDIRECTED PRN PRN Reason: Keep Vein Open Labs: Laboratory Tests 11/15/20 11/15/20 11/15/20 Range/Units 21:00 21:00 21:00 WBC 7.82 (4.0-11.0) K/uL RBC 2.99 L (4.30-5.90) M/uL Hgb 10.5 L (12.0-16.0) g/dL Hct 32.6 L (36.0-46.0) % MCV 109.0 H (80.0-98.0) fL MCH 35.1 H (27.0-32.0) pg MCHC 32.2 (31.0-37.0) g/dL RDW Std Deviation 54.3 (28.0-62.0) fl RDW Coeff of Blue 14 (11.0-15.0) % Plt Count 261 (150-400) K/uL MPV 10.30 (7.40-12.00) fL Neut % (Auto) 58.1 (48.0-80.0) % Lymph % (Auto) 28.9 (16.0-40.0) % [place] % (Auto) 6.4 (0.0-15.0) % Eos % (Auto) 5.6 (0.0-7.0) % Baso % (Auto) 1.0 (0.0-1.5) % Neut # (Auto) 4.5 (1.4-5.7) K/uL Lymph # (Auto) 2.3 (0.6-2.4) K/uL [place] # (Auto) 0.5 (0.0-0.8) K/uL Eos # (Auto) 0.4 (0.0-0.7) K/uL Baso # (Auto) 0.1 (0.0-0.1) K/uL Nucleated RBC % 0.0 /100WBC Nucleated RBCs # 0 K/uL INR 1.05 APTT 25.4 (18.6-31.3) SEC Sodium 143 (136-145) mmol/L Potassium 3.8 (3.5-5.1) mmol/L Chloride 107 (98-107) mmol/L Carbon Dioxide 28.0 (21.0-32.0) mmol/L BUN 7 (7.0-18.0) mg/dL Creatinine 0.7 (0.6-1.0) mg/dL Est Cr Clr Drug Dosing 87.87 mL/min Estimated GFR (MDRD) > 60.0 ml/min Glucose 73 L (74-106) mg/dL Calcium 8.3 L (8.5-10.1) mg/dL Magnesium 1.6 L (1.8-2.4) mg/dL Total Bilirubin 0.4 (0.2-1.0) mg/dL AST 52 H (15-37) IU/L ALT 29 (14-63) IU/L Alkaline Phosphatase 98 (46-116) U/L Total Protein 5.9 L (6.4-8.2) g/dL Albumin 1.9 L (3.4-5.0) g/dL Globulin 4.0 (2.6-4.0) g/dL Albumin/Globulin Ratio 0.5 L (0.9-1.6) Lipase 398 H (73-393) U/L SARS-CoV-2 RNA ([place]) (NEGATIVE) 11/15/20 Range/Units 22:05 WBC (4.0-11.0) K/uL RBC (4.30-5.90) M/uL Hgb (12.0-16.0) g/dL Hct (36.0-46.0) % MCV (80.0-98.0) fL MCH (27.0-32.0) pg MCHC (31.0-37.0) g/dL RDW Std Deviation (28.0-62.0) fl RDW Coeff of Blue (11.0-15.0) % Plt Count (150-400) K/uL MPV (7.40-12.00) fL Neut % (Auto) (48.0-80.0) % Lymph % (Auto) (16.0-40.0) % [place] % (Auto) (0.0-15.0) % Eos % (Auto) (0.0-7.0) % Baso % (Auto) (0.0-1.5) % Neut # (Auto) (1.4-5.7) K/uL Lymph # (Auto) (0.6-2.4) K/uL [place] # (Auto) (0.0-0.8) K/uL Eos # (Auto) (0.0-0.7) K/uL Baso # (Auto) (0.0-0.1) K/uL Nucleated RBC % /100WBC Nucleated RBCs # K/uL INR APTT (18.6-31.3) SEC Sodium (136-145) mmol/L Potassium (3.5-5.1) mmol/L Chloride (98-107) mmol/L Carbon Dioxide (21.0-32.0) mmol/L BUN (7.0-18.0) mg/dL Creatinine (0.6-1.0) mg/dL Est Cr Clr Drug Dosing mL/min Estimated GFR (MDRD) ml/min Glucose (74-106) mg/dL Calcium (8.5-10.1) mg/dL Magnesium (1.8-2.4) mg/dL Total Bilirubin (0.2-1.0) mg/dL AST (15-37) IU/L ALT (14-63) IU/L Alkaline Phosphatase (46-116) U/L Total Protein (6.4-8.2) g/dL Albumin (3.4-5.0) g/dL Globulin (2.6-4.0) g/dL Albumin/Globulin Ratio (0.9-1.6) Lipase (73-393) U/L SARS-CoV-2 RNA ([place]) NEGATIVE (NEGATIVE) Meds: Medications Generic Name Dose Route Start Last Admin Trade Name Tanvir PRN Reason Stop Dose Admin Sodium Chloride 500 mls @ 1,000 mls/hr 11/15/20 23:45 Normal Saline IV .BOLUS DENISE Sodium Chloride 10 ml 11/15/20 21:22 Saline Flush FLUSH ASDIRECTED PRN Keep Vein Open Sodium Chloride 2.5 ml 11/15/20 21:22 Saline Flush FLUSH ASDIRECTED PRN Keep Vein Open Discontinued Medications Generic Name Dose Route Start Last Admin Trade Name Tanvir PRN Reason Stop Dose Admin Hydromorphone HCl 1 mg 11/15/20 21:22 11/15/20 21:32 Dilaudid IVPUSH 11/15/20 21:23 1 mg ONETIME ONE Administration Hydromorphone HCl 0.5 mg 11/15/20 23:24 Dilaudid IVPUSH 11/15/20 23:25 ONETIME ONE Iopamidol 100 ml 11/15/20 22:34 11/15/20 22:34 Isovue Multipack-370 (76%) IVPUSH 11/15/20 22:35 100 ml ONETIME STA Administration Ondansetron HCl 4 mg 11/15/20 21:22 11/15/20 21:32 Zofran IVPUSH 11/15/20 21:23 4 mg ONETIME ONE Administration Departure - Departure Time of Disposition: 23:40 Disposition: Refer to Observation Condition: Good Clinical Impression: Cirrhosis of liver, Intractable abdominal pain Pancreatitis Qualifiers: Chronicity: acute Pancreatitis type: unspecified pancreatitis type Acute pancreatitis complication: unspecified Qualified Code(s): K85.90 - Acute pancreatitis without necrosis or infection, unspecified - Discharge Information Referrals: Amber Goldsmith NP [Primary Care Provider] - Forms: ED Department Discharge Sepsis Event Note (ED) - Evaluation Sepsis Screening Result: No Definite Risk - Focused Exam Vital Signs: Vital Signs Temp Pulse Resp BP Pulse Ox 11/15/20 23:32 121 H 18 92/59 L 100 11/15/20 22:01 102 H 16 92/59 L 98 11/15/20 21:00 36.1 C 117 H 18 92/59 L 100 - My Orders Last 24 Hours: My Active Orders 11/15/20 21:22 Sodium Chloride 0.9% [Saline Flush] 10 ml FLUSH ASDIRECTED PRN Sodium Chloride 0.9% [Saline Flush] 2.5 ml FLUSH ASDIRECTED PRN Saline Lock Insert [OM.PC] Stat 11/15/20 23:31 UA W/IAN RFLX IF INDICATED [URIN] Stat 11/15/20 23:37 Admission Status [Patient Status] [ADT] Stat 11/15/20 23:45 Sodium Chloride 0.9% [Normal Saline] 500 ml IV .BOLUS - Assessment/Plan Last 24 Hours: My Active Orders 11/15/20 21:22 Sodium Chloride 0.9% [Saline Flush] 10 ml FLUSH ASDIRECTED PRN Sodium Chloride 0.9% [Saline Flush] 2.5 ml FLUSH ASDIRECTED PRN Saline Lock Insert [OM.PC] Stat 11/15/20 23:31 UA W/IAN RFLX IF INDICATED [URIN] Stat 11/15/20 23:37 Admission Status [Patient Status] [ADT] Stat 11/15/20 23:45 Sodium Chloride 0.9% [Normal Saline] 500 ml IV .BOLUS
[2020-11-15 21:37] LABS: BLOOD UREA NITROGEN,BUN 7 mg/dL (7.0-18.0); CHLORIDE,CL 107 mmol/L (98-107); GLUCOSE RANDOM 73 mg/dL (74-106); LIPASE 398 U/L (73-393); POTASSIUM,K 3.8 mmol/L (3.5-5.1); SODIUM,NA 143 mmol/L (136-145)
[2020-11-15] MEDS ORDERED: Iopamidol 755 MG/ML 500 ML Multipack Bottle IVPUSH STA (22:34)
--- NOTE | 2020-11-15 23:20 | CT ---
INDICATION: Abdominal pain and elevated lipase. History of serosa send ascites. Fell onto abdomen today. COMPARISON: 10/05/2020. TECHNIQUE: CT of the abdomen and pelvis with IV contrast. 100 cc IV Isovue-370. FINDINGS: Imaged lung bases are unremarkable. Cirrhotic liver morphology. Small gallstone. Spleen is unremarkable. Pancreas is within normal limits. The adrenal glands and kidneys are unremarkable. Mild ascites is decreased from prior. Abdominal aorta is normal in caliber. Bladder is distended. Uterus is present. No evidence of bowel obstruction. Mild colonic wall thickening is significantly improved from prior. No enlarged lymph nodes identified in the abdomen or pelvis. Prominent periportal lymph nodes could be reactive. Bones are unremarkable. IMPRESSION: 1. Cirrhotic liver morphology. 2. Mild ascites, decreased from prior. 3. Single small gallstone. 4. Mild colonic wall thickening, significantly improved from prior. Please note that all CT scans at this facility use dose modulation, iterative reconstruction, and/or weight-based dosing when appropriate to reduce radiation dose to as low as reasonably achievable. Dictated by Garrett Palma MD @ Nov 15 2020 11:13PM Signed by Dr. Garrett Palma @ Nov 15 2020 11:19PM
[2020-11-15] MEDS ORDERED: HYDROmorphone 2 MG/ML Syringe IVPUSH ONE (23:24)
[2020-11-15] MEDS ORDERED: Albuterol/Ipratropium 3.0-0.5 MG/3 ML Neb Soln NEB PRN (23:41)
[2020-11-15] MEDS ORDERED: Magnesium Sulfate/Water 2 GM/50 ML BAG IV ONE (23:44)
[2020-11-15] MEDS ORDERED: Sodium Chloride 0.9% 500 ML IV SCH (23:45)
[2020-11-15] MEDS ORDERED: 25% Dextrose in Water 10 ML Syringe IVPUSH PRN (23:48)
[2020-11-16] MEDS: Lactated Ringers 1,000 ML IV SCH ×2 (00:51→09:34)
[2020-11-16] MEDS ORDERED: Enoxaparin 40 MG/0.4 ML Syringe SUBCUT SCH ×2 (01:01→23:45)
[2020-11-16] MEDS: Pantoprazole 40 MG in Sodium Chloride 0.9% 10 ML IV SCH (01:16)
[2020-11-16] MEDS: HYDROmorphone 2 MG/ML Syringe IVPUSH PRN ×7 (02:48→21:37)
[2020-11-16] MEDS: Ondansetron 4 MG/2 ML SDV IVPUSH PRN ×2 (02:48→15:39)
[2020-11-16 06:38] LABS: BLOOD UREA NITROGEN,BUN 8 mg/dL (7.0-18.0); CARBON DIOXIDE,CO2 27.3 mmol/L (21.0-32.0); CHLORIDE,CL 110 mmol/L (98-107); GLUCOSE RANDOM 91 mg/dL (74-106); POTASSIUM,K 3.9 mmol/L (3.5-5.1); SODIUM,NA 143 mmol/L (136-145)
[2020-11-16] MEDS: Enoxaparin 40 MG/0.4 ML Syringe SUBCUT SCH (10:15)
[2020-11-16] MEDS ORDERED: Furosemide 20 MG Tab PO PRN (10:45)
[2020-11-16] MEDS ORDERED: Lactulose Soln 10 GM/15 ML 15 ML UD Cup PO PRN (10:45)
--- NOTE | 2020-11-16 14:06 | PCM.HP.2 ---
H&P History of Present Illness - General Date of Service: 11/16/20 Admit Problem/Dx: Admission Diagnosis/Problem Admission Diagnosis/Problem Pancreatitis Abdomen Pain Score (Numeric/FACES): 9 - Related Data Allergies/Adverse Reactions: Allergies Allergy/AdvReac Type Severity Reaction Status Date / Time codeine Allergy Mild Nausea and Verified 11/16/20 02:54 Vomiting Home Medications: Home Meds Omeprazole 20 mg PO BIDAC 10/06/20 [History] Furosemide 20 mg PO DAILY PRN 10 Days #10 tablet 10/16/20 [Rx] Multivitamins [Tab-A-Pedro] 1 tab PO DAILY tablet 10/16/20 [Rx] Lactulose 10 gm PO BID PRN 11/06/20 [History] LORazepam [Ativan] 0.5 mg PO BEDTIME PRN 11/11/20 [History] Past Medical History HEENT History: Reports: None Other HEENT History: Yellow sclera Cardiovascular History: Reports: None Respiratory History: Reports: Other (See Below) Other Respiratory History: Pluerisy Gastrointestinal History: Reports: Cirrhosis, Other (See Below) Other Gastrointestinal History: heartburn Genitourinary History: Reports: Other (See Below) Other Genitourinary History: yeast infection during [employer] History: Reports: Musculoskeletal History: Reports: Back Pain, Chronic Other Musculoskeletal History: hx herniated disc in lower back Neurological History: Reports: None Psychiatric History: Reports: Anxiety Insulin Pump Model and Hydrometer Calibrator: None Hematologic History: Reports: None Immunologic History: Reports: None Oncologic (Cancer) History: Reports: Cervix Dermatologic History: Reports: None - Infectious Disease History Infectious Disease History: Reports: Chicken Pox, Influenza, Novel Coronavirus - Past Surgical History Head Surgeries/Procedures: Reports: None HEENT Surgical History: Reports: Oral Surgery Other HEENT Surgeries/Procedures: teeth removed at 26 years of age wears dentures Respiratory Surgical History: Reports: None GI Surgical History: Reports: Other (See Below) Other GI Surgeries/Procedures: Weekly paracentesis in [place]-Radiology Dept Female Surgical History: Reports: None Musculoskeletal Surgical History: Reports: None Oncologic Surgical History: Reports: Other (See Below) Other Oncologic Surgeries/Procedures: LEEP Social & Family History - Family History Family Medical History: No Pertinent Family History HEENT: Reports: Cataract, Glaucoma, Impaired Vision Cardiac: Reports: CAD, High Cholesterol, Hypertension GI: Reports: Cholelithiasis, Hepatitis OBGYN: Reports: Endometriosis Musculoskeletal: Reports: Arthritis, Back pain, Chronic, Neck Pain, Chronic, Osteoarthritis, RA Neurological: Reports: Alzheimers Disease, Dementia, Parkinson's Psychiatric: Reports: ADD, ADHD, Anxiety, Depression, Emotional Problems, Learning Disability, Mood Swings, Panic Attack Endocrine/Metabolic: Reports: Diabetes, type II, Hyperthyroidism Oncologic: Reports: Leukemia - Tobacco Use Tobacco Use Status *Q: Former Tobacco User Used Tobacco, but Quit: No - Caffeine Use Caffeine Use: Reports: None - Recreational Drug Use Recreational Drug Use: No Exam - Vital Signs Vital Signs: Last Vital Signs Temp 98 F 11/16/20 12:00 Pulse 121 H 11/15/20 23:32 Resp 18 11/16/20 12:00 BP 105/66 11/16/20 12:00 Pulse Ox 99 11/16/20 12:00 Weight: 103 lb 7 oz - Patient Data Lab Results Last 24 hrs: Laboratory Results - last 24 hr 11/15/20 11/15/20 11/15/20 Range/Units 21:00 21:00 21:00 WBC 7.82 (4.0-11.0) K/uL RBC 2.99 L (4.30-5.90) M/uL Hgb 10.5 L (12.0-16.0) g/dL Hct 32.6 L (36.0-46.0) % MCV 109.0 H (80.0-98.0) fL MCH 35.1 H (27.0-32.0) pg MCHC 32.2 (31.0-37.0) g/dL RDW Std Deviation 54.3 (28.0-62.0) fl RDW Coeff of Blue 14 (11.0-15.0) % Plt Count 261 (150-400) K/uL MPV 10.30 (7.40-12.00) fL Neut % (Auto) 58.1 (48.0-80.0) % Lymph % (Auto) 28.9 (16.0-40.0) % Starke % (Auto) 6.4 (0.0-15.0) % Eos % (Auto) 5.6 (0.0-7.0) % Baso % (Auto) 1.0 (0.0-1.5) % Neut # (Auto) 4.5 (1.4-5.7) K/uL Lymph # (Auto) 2.3 (0.6-2.4) K/uL Starke # (Auto) 0.5 (0.0-0.8) K/uL Eos # (Auto) 0.4 (0.0-0.7) K/uL Baso # (Auto) 0.1 (0.0-0.1) K/uL Nucleated RBC % 0.0 /100WBC Nucleated RBCs # 0 K/uL INR 1.05 APTT 25.4 (18.6-31.3) SEC Sodium 143 (136-145) mmol/L Potassium 3.8 (3.5-5.1) mmol/L Chloride 107 (98-107) mmol/L Carbon Dioxide 28.0 (21.0-32.0) mmol/L BUN 7 (7.0-18.0) mg/dL Creatinine 0.7 (0.6-1.0) mg/dL Est Cr Clr Drug Dosing 87.87 mL/min Estimated GFR (MDRD) > 60.0 ml/min Glucose 73 L (74-106) mg/dL POC Glucose (60-110) mg/dL Calcium 8.3 L (8.5-10.1) mg/dL Phosphorus (2.6-4.7) mg/dL Magnesium 1.6 L (1.8-2.4) mg/dL Total Bilirubin 0.4 (0.2-1.0) mg/dL AST 52 H (15-37) IU/L ALT 29 (14-63) IU/L Alkaline Phosphatase 98 (46-116) U/L Total Protein 5.9 L (6.4-8.2) g/dL Albumin 1.9 L (3.4-5.0) g/dL Globulin 4.0 (2.6-4.0) g/dL Albumin/Globulin Ratio 0.5 L (0.9-1.6) Lipase 398 H (73-393) U/L Urine Color Urine Appearance Urine pH (5.0-8.0) Ur Specific Melville (1.001-1.035) Urine Protein (NEGATIVE) mg/dL Urine Glucose (UA) (NEGATIVE) mg/dL Urine Ketones (NEGATIVE) mg/dL Urine Occult Blood (NEGATIVE) Urine Nitrite (NEGATIVE) Urine Bilirubin (NEGATIVE) Urine Urobilinogen (<2.0) EU/dL Ur Leukocyte Esterase (NEGATIVE) SARS-CoV-2 RNA ([place]) (NEGATIVE) 11/15/20 11/15/20 11/16/20 Range/Units 22:05 23:30 01:23 WBC (4.0-11.0) K/uL RBC (4.30-5.90) M/uL Hgb (12.0-16.0) g/dL Hct (36.0-46.0) % MCV (80.0-98.0) fL MCH (27.0-32.0) pg MCHC (31.0-37.0) g/dL RDW Std Deviation (28.0-62.0) fl RDW Coeff of Blue (11.0-15.0) % Plt Count (150-400) K/uL MPV (7.40-12.00) fL Neut % (Auto) (48.0-80.0) % Lymph % (Auto) (16.0-40.0) % Starke % (Auto) (0.0-15.0) % Eos % (Auto) (0.0-7.0) % Baso % (Auto) (0.0-1.5) % Neut # (Auto) (1.4-5.7) K/uL Lymph # (Auto) (0.6-2.4) K/uL Starke # (Auto) (0.0-0.8) K/uL Eos # (Auto) (0.0-0.7) K/uL Baso # (Auto) (0.0-0.1) K/uL Nucleated RBC % /100WBC Nucleated RBCs # K/uL INR APTT (18.6-31.3) SEC Sodium (136-145) mmol/L Potassium (3.5-5.1) mmol/L Chloride (98-107) mmol/L Carbon Dioxide (21.0-32.0) mmol/L BUN (7.0-18.0) mg/dL Creatinine (0.6-1.0) mg/dL Est Cr Clr Drug Dosing mL/min Estimated GFR (MDRD) ml/min Glucose (74-106) mg/dL POC Glucose 100 (60-110) mg/dL Calcium (8.5-10.1) mg/dL Phosphorus (2.6-4.7) mg/dL Magnesium (1.8-2.4) mg/dL Total Bilirubin (0.2-1.0) mg/dL AST (15-37) IU/L ALT (14-63) IU/L Alkaline Phosphatase (46-116) U/L Total Protein (6.4-8.2) g/dL Albumin (3.4-5.0) g/dL Globulin (2.6-4.0) g/dL Albumin/Globulin Ratio (0.9-1.6) Lipase (73-393) U/L Urine Color YELLOW Urine Appearance CLEAR Urine pH 7.0 (5.0-8.0) Ur Specific Melville <= 1.005 (1.001-1.035) Urine Protein NEGATIVE (NEGATIVE) mg/dL Urine Glucose (UA) NEGATIVE (NEGATIVE) mg/dL Urine Ketones NEGATIVE (NEGATIVE) mg/dL Urine Occult Blood NEGATIVE (NEGATIVE) Urine Nitrite NEGATIVE (NEGATIVE) Urine Bilirubin NEGATIVE (NEGATIVE) Urine Urobilinogen 1.0 (<2.0) EU/dL Ur Leukocyte Esterase NEGATIVE (NEGATIVE) SARS-CoV-2 RNA ([place]) NEGATIVE (NEGATIVE) 11/16/20 11/16/20 11/16/20 Range/Units 06:10 06:10 07:31 WBC 5.71 (4.0-11.0) K/uL RBC 2.61 L (4.30-5.90) M/uL Hgb 9.0 L (12.0-16.0) g/dL Hct 28.6 L (36.0-46.0) % MCV 109.6 H (80.0-98.0) fL MCH 34.5 H (27.0-32.0) pg MCHC 31.5 (31.0-37.0) g/dL RDW Std Deviation 55.8 (28.0-62.0) fl RDW Coeff of Blue 14 (11.0-15.0) % Plt Count 205 (150-400) K/uL MPV 10.20 (7.40-12.00) fL Neut % (Auto) 57.4 (48.0-80.0) % Lymph % (Auto) 27.7 (16.0-40.0) % Starke % (Auto) 6.5 (0.0-15.0) % Eos % (Auto) 7.7 H (0.0-7.0) % Baso % (Auto) 0.7 (0.0-1.5) % Neut # (Auto) 3.3 (1.4-5.7) K/uL Lymph # (Auto) 1.6 (0.6-2.4) K/uL Starke # (Auto) 0.4 (0.0-0.8) K/uL Eos # (Auto) 0.4 (0.0-0.7) K/uL Baso # (Auto) 0.0 (0.0-0.1) K/uL Nucleated RBC % 0.0 /100WBC Nucleated RBCs # 0 K/uL INR APTT (18.6-31.3) SEC Sodium 143 (136-145) mmol/L Potassium 3.9 (3.5-5.1) mmol/L Chloride 110 H (98-107) mmol/L Carbon Dioxide 27.3 (21.0-32.0) mmol/L BUN 8 (7.0-18.0) mg/dL Creatinine 0.5 L (0.6-1.0) mg/dL Est Cr Clr Drug Dosing 115.21 mL/min Estimated GFR (MDRD) > 60.0 ml/min Glucose 91 (74-106) mg/dL POC Glucose 90 (60-110) mg/dL Calcium 8.0 L (8.5-10.1) mg/dL Phosphorus 4.3 (2.6-4.7) mg/dL Magnesium 2.1 (1.8-2.4) mg/dL Total Bilirubin (0.2-1.0) mg/dL AST (15-37) IU/L ALT (14-63) IU/L Alkaline Phosphatase (46-116) U/L Total Protein (6.4-8.2) g/dL Albumin (3.4-5.0) g/dL Globulin (2.6-4.0) g/dL Albumin/Globulin Ratio (0.9-1.6) Lipase (73-393) U/L Urine Color Urine Appearance Urine pH (5.0-8.0) Ur Specific Melville (1.001-1.035) Urine Protein (NEGATIVE) mg/dL Urine Glucose (UA) (NEGATIVE) mg/dL Urine Ketones (NEGATIVE) mg/dL Urine Occult Blood (NEGATIVE) Urine Nitrite (NEGATIVE) Urine Bilirubin (NEGATIVE) Urine Urobilinogen (<2.0) EU/dL Ur Leukocyte Esterase (NEGATIVE) SARS-CoV-2 RNA ([place]) (NEGATIVE) Result Diagrams: 11/16/20 06:10 11/16/20 06:10 Sepsis Event Note - Evaluation Sepsis Screening Result: No Definite Risk - Focused Exam Vital Signs: Vital Signs Temp Resp BP Pulse Ox 11/16/20 12:00 98 F 18 105/66 99 11/16/20 07:53 97 F 18 94/48 L 100 11/16/20 04:50 97.1 F 18 89/52 L 97 Orders Last 24hrs: Active Orders 24 hr Category Date Time Status Admission Status [Patient Status] [ADT] Stat ADT 11/15/20 23:37 Active Ambulate [RC] ASDIRECTED Care 11/15/20 23:41 Active Cardiac Monitoring Discontinue [RC] Click to Edit Care 11/16/20 11:45 Active Oxygen Therapy [RC] PRN Care 11/15/20 23:41 Active RT Aerosol Therapy [RC] ASDIRECTED Care 11/15/20 23:43 Active VTE/DVT Education [RC] PER UNIT ROUTINE Care 11/15/20 23:41 Active Vital Signs [RC] Q4H Care 11/15/20 23:41 Active Mechanical Soft Diet [DIET] Diet 11/16/20 Lunch Active Albuterol/Ipratropium [DuoNeb 3.0-0.5 MG/3 ML] Med 11/15/20 23:41 Active 3 ml NEB Q4HRRT PRN Dextrose 25% in Water Med 11/15/20 23:48 Active 10 ml IVPUSH Q6H PRN Enoxaparin [Lovenox] Med 11/16/20 09:00 Active 40 mg SUBCUT Q24H Furosemide [Lasix] Med 11/16/20 10:45 Active 20 mg PO DAILY PRN HYDROmorphone [Dilaudid] Med 11/15/20 23:41 Active 0.5 mg IVPUSH Q3H PRN LORazepam [Ativan] Med 11/16/20 21:00 Active 0.5 mg PO BEDTIME PRN Lactulose [Chronulac] Med 11/16/20 10:45 Active 10 gm PO BID PRN Ondansetron [Zofran] Med 11/15/20 23:41 Active 4 mg IVPUSH Q4H PRN Pantoprazole [ProTONIX IV] 40 mg Med 11/16/20 01:15 Active Sodium Chloride 0.9% [Normal Saline] 10 ml IV Q24H Sodium Chloride 0.9% [Normal Saline] 500 ml Med 11/15/20 23:45 Active IV .BOLUS Sodium Chloride 0.9% [Saline Flush] Med 11/15/20 21:22 Active 10 ml FLUSH ASDIRECTED PRN Sodium Chloride 0.9% [Saline Flush] Med 11/15/20 21:22 Active 2.5 ml FLUSH ASDIRECTED PRN Saline Lock Insert [OM.PC] Stat Oth 11/15/20 21:22 Ordered Medication Orders Albuterol/Ipratropium (Duoneb 3.0-0.5 Mg/3 Ml) 3 ml NEB Q4HRRT PRN PRN Reason: Shortness Of Breath/wheezing Dextrose/Water (Dextrose 25% In Water) 10 ml IVPUSH Q6H PRN PRN Reason: Hypoglycemia Enoxaparin Sodium (Lovenox) 40 mg SUBCUT Q24H [facility] Last Admin: 11/16/20 10:15 Dose: Not Given Documented by: LE Furosemide (Lasix) 20 mg PO DAILY PRN PRN Reason: Edema Hydromorphone HCl (Dilaudid) 0.5 mg IVPUSH Q3H PRN PRN Reason: Pain (severe 7-10) Last Admin: 11/16/20 12:36 Dose: 0.5 mg Documented by: Admin: 11/16/20 09:37 Dose: 0.5 mg Documented by: Admin: 11/16/20 06:29 Dose: 0.5 mg Documented by: Admin: 11/16/20 02:48 Dose: 0.5 mg Documented by: GISSEL Sodium Chloride (Normal Saline) 500 mls @ 1,000 mls/hr IV .BOLUS DENISE Last Admin: 11/15/20 23:45 Dose: 1,000 mls/hr Documented by: BREWKRI Pantoprazole Sodium 40 mg/ (Sodium Chloride) 10 mls @ 300 mls/hr IV Q24H DENISE Last Admin: 11/16/20 01:16 Dose: 300 mls/hr Documented by: GISSEL Lactulose (Chronulac) 10 gm PO BID PRN PRN Reason: Constipation Lorazepam (Ativan) 0.5 mg PO BEDTIME PRN PRN Reason: ANXIETY/INSOMNIA Ondansetron HCl (Zofran) 4 mg IVPUSH Q4H PRN PRN Reason: Nausea/Vomiting Last Admin: 11/16/20 02:48 Dose: 4 mg Documented by: GISSEL Sodium Chloride (Saline Flush) 10 ml FLUSH ASDIRECTED PRN PRN Reason: Keep Vein Open Sodium Chloride (Saline Flush) 2.5 ml FLUSH ASDIRECTED PRN PRN Reason: Keep Vein Open
--- NOTE | 2020-11-16 14:12 | PCM.HP.2 ---
<Nataly Leavitt - Last Filed: 11/16/20 14:07> H&P History of Present Illness - General Date of Service: 11/16/20 Admit Problem/Dx: Admission Diagnosis/Problem Admission Diagnosis/Problem Pancreatitis Source of Information: Patient History Limitations: Reports: No Limitations - History of Present Illness Initial Comments - Free Text/Narative: Patient is a jaky 35-year-old female with a past medical history of alcohol abuse leading to cirrhosis requiring weekly paracentesis. Patient is status post paracentesis [address] [facility] with GI doctor patient follows. Came in to ED last night with a abdominal pain described as being new and sharper than usual. Describes some associated nausea followed by vomiting, continues to have normal bowel movements. States she had also fallen onto her belly and had her 70 pound dog pounds onto her abdomen contributing to further pain. Patient has not been able to tolerate any p.o. intake since October. Describes the pain as being ache in the mid epigastric region, does not describe pain is radiating anywhere. ER course: CBC, CMP, normal saline bolus, Dilaudid, Zofran, UA, Covid Abdomen Pain Score (Numeric/FACES): 9 - Related Data Allergies/Adverse Reactions: Allergies Allergy/AdvReac Type Severity Reaction Status Date / Time codeine Allergy Mild Nausea and Verified 11/16/20 02:54 Vomiting Home Medications: Home Meds Omeprazole 20 mg PO BIDAC 10/06/20 [History] Furosemide 20 mg PO DAILY PRN 10 Days #10 tablet 10/16/20 [Rx] Multivitamins [Tab-A-Pedro] 1 tab PO DAILY tablet 10/16/20 [Rx] Lactulose 10 gm PO BID PRN 11/06/20 [History] LORazepam [Ativan] 0.5 mg PO BEDTIME PRN 11/11/20 [History] Past Medical History HEENT History: Reports: None Other HEENT History: Yellow sclera Cardiovascular History: Reports: None Respiratory History: Reports: Other (See Below) Other Respiratory History: Pluerisy Gastrointestinal History: Reports: Cirrhosis, Other (See Below) Other Gastrointestinal History: heartburn Genitourinary History: Reports: Other (See Below) Other Genitourinary History: yeast infection during OVERCOILER History: Reports: Musculoskeletal History: Reports: Back Pain, Chronic Other Musculoskeletal History: hx herniated disc in lower back Neurological History: Reports: None Psychiatric History: Reports: Anxiety Insulin Pump Model and Senior It Security Analyst: None Hematologic History: Reports: None Immunologic History: Reports: None Oncologic (Cancer) History: Reports: Cervix Dermatologic History: Reports: None - Infectious Disease History Infectious Disease History: Reports: Chicken Pox, Influenza, Novel Coronavirus - Past Surgical History Head Surgeries/Procedures: Reports: None HEENT Surgical History: Reports: Oral Surgery Other HEENT Surgeries/Procedures: teeth removed at 26 years of age wears dentures Respiratory Surgical History: Reports: None GI Surgical History: Reports: Other (See Below) Other GI Surgeries/Procedures: Weekly paracentesis in [place]-Radiology Dept Female Surgical History: Reports: None Musculoskeletal Surgical History: Reports: None Oncologic Surgical History: Reports: Other (See Below) Other Oncologic Surgeries/Procedures: LEEP Social & Family History - Family History Family Medical History: No Pertinent Family History HEENT: Reports: Cataract, Glaucoma, Impaired Vision Cardiac: Reports: CAD, High Cholesterol, Hypertension GI: Reports: Cholelithiasis, Hepatitis OBGYN: Reports: Endometriosis Musculoskeletal: Reports: Arthritis, Back pain, Chronic, Neck Pain, Chronic, Osteoarthritis, RA Neurological: Reports: Alzheimers Disease, Dementia, Parkinson's Psychiatric: Reports: ADD, ADHD, Anxiety, Depression, Emotional Problems, Lear lobito Disability, Mood Swings, Panic Attack Endocrine/Metabolic: Reports: Diabetes, type II, Hyperthyroidism Oncologic: Reports: Leukemia - Tobacco Use Tobacco Use Status *Q: Former Tobacco User Used Tobacco, but Quit: No - Caffeine Use Caffeine Use: Reports: None - Recreational Drug Use Recreational Drug Use: No H&P Review of Systems - Review of Systems: Review Of Systems: See Below General: Reports: No Symptoms HEENT: Reports: No Symptoms Pulmonary: Reports: No Symptoms Cardiovascular: Reports: No Symptoms Gastrointestinal: Reports: No Symptoms Genitourinary: Reports: No Symptoms Musculoskeletal: Reports: No Symptoms Skin: Reports: No Symptoms Psychiatric: Reports: No Symptoms Neurological: Reports: No Symptoms Hematologic/Lymphatic: Reports: No Symptoms Immunologic: Reports: No Symptoms Exam - Exam Exam: See Below - Vital Signs Vital Signs: Last Vital Signs Temp 98 F 11/16/20 12:00 Pulse 121 H 11/15/20 23:32 Resp 18 11/16/20 12:00 BP 105/66 11/16/20 12:00 Pulse Ox 99 11/16/20 12:00 Weight: 46.918 kg - Exam Quality Assessment: DVT Prophylaxis General: Alert, Oriented HEENT: Conjunctiva Clear, EACs Clear, EOMI, Hearing Intact, Mucosa Moist & [place], Nares Patent, Normal Nasal Septum Neck: No: Lymphadenopathy Lungs: Clear to Auscultation, Normal Respiratory Effort Cardiovascular: Regular Rate, Regular Rhythm GI/Abdominal Exam: Normal Bowel Sounds, Soft, Distended, Tender Extremities: Normal Inspection, Normal Range of Motion, Non-Tender, No Pedal Edema, Normal Capillary Refill Peripheral Pulses: 2+: Radial (L), Radial (R), Dorsalis Pedis (L), Dorsalis Pedis (R) Skin: Warm, Dry, Intact Neurological: Cranial Nerves Intact, Reflexes Equal Bilateral Neuro Extensive - Mental Status: Alert, Oriented x3, Normal Mood/Affect, Normal Cognition, Memory Intact Neuro Extensive - Motor, Sensory, Reflexes: CN II-XII Intact, Normal Gait, Normal Reflexes DTR: 2+: Bicep (L), Bicep (R), Achilles (L), Achilles (R) Psychiatric: Alert, Normal Affect, Normal Mood - Patient Data Lab Results Last 24 hrs: Laboratory Results - last 24 hr 11/15/20 11/15/20 11/15/20 Range/Units 21:00 21:00 21:00 WBC 7.82 (4.0-11.0) K/uL RBC 2.99 L (4.30-5.90) M/uL Hgb 10.5 L (12.0-16.0) g/dL Hct 32.6 L (36.0-46.0) % MCV 109.0 H (80.0-98.0) fL MCH 35.1 H (27.0-32.0) pg MCHC 32.2 (31.0-37.0) g/dL RDW Std Deviation 54.3 (28.0-62.0) fl RDW Coeff of Blue 14 (11.0-15.0) % Plt Count 261 (150-400) K/uL MPV 10.30 (7.40-12.00) fL Neut % (Auto) 58.1 (48.0-80.0) % Lymph % (Auto) 28.9 (16.0-40.0) % [place] % (Auto) 6.4 (0.0-15.0) % Eos % (Auto) 5.6 (0.0-7.0) % Baso % (Auto) 1.0 (0.0-1.5) % Neut # (Auto) 4.5 (1.4-5.7) K/uL Lymph # (Auto) 2.3 (0.6-2.4) K/uL [place] # (Auto) 0.5 (0.0-0.8) K/uL Eos # (Auto) 0.4 (0.0-0.7) K/uL Baso # (Auto) 0.1 (0.0-0.1) K/uL Nucleated RBC % 0.0 /100WBC Nucleated RBCs # 0 K/uL INR 1.05 APTT 25.4 (18.6-31.3) SEC Sodium 143 (136-145) mmol/L Potassium 3.8 (3.5-5.1) mmol/L Chloride 107 (98-107) mmol/L Carbon Dioxide 28.0 (21.0-32.0) mmol/L BUN 7 (7.0-18.0) mg/dL Creatinine 0.7 (0.6-1.0) mg/dL Est Cr Clr Drug Dosing 87.87 mL/min Estimated GFR (MDRD) > 60.0 ml/min Glucose 73 L (74-106) mg/dL POC Glucose (60-110) mg/dL Calcium 8.3 L (8.5-10.1) mg/dL Phosphorus (2.6-4.7) mg/dL Magnesium 1.6 L (1.8-2.4) mg/dL Total Bilirubin 0.4 (0.2-1.0) mg/dL AST 52 H (15-37) IU/L ALT 29 (14-63) IU/L Alkaline Phosphatase 98 (46-116) U/L Total Protein 5.9 L (6.4-8.2) g/dL Albumin 1.9 L (3.4-5.0) g/dL Globulin 4.0 (2.6-4.0) g/dL Albumin/Globulin Ratio 0.5 L (0.9-1.6) Lipase 398 H (73-393) U/L Urine Color Urine Appearance Urine pH (5.0-8.0) Ur Specific [place] (1.001-1.035) Urine Protein (NEGATIVE) mg/dL Urine Glucose (UA) (NEGATIVE) mg/dL Urine Ketones (NEGATIVE) mg/dL Urine Occult Blood (NEGATIVE) Urine Nitrite (NEGATIVE) Urine Bilirubin (NEGATIVE) Urine Urobilinogen (<2.0) EU/dL Ur Leukocyte Esterase (NEGATIVE) SARS-CoV-2 RNA (TOR[place]) (NEGATIVE) 11/15/20 11/15/20 11/16/20 Range/Units 22:05 23:30 01:23 WBC (4.0-11.0) K/uL RBC (4.30-5.90) M/uL Hgb (12.0-16.0) g/dL Hct (36.0-46.0) % MCV (80.0-98.0) fL MCH (27.0-32.0) pg MCHC (31.0-37.0) g/dL RDW Std Deviation (28.0-62.0) fl RDW Coeff of Blue (11.0-15.0) % Plt Count (150-400) K/uL MPV (7.40-12.00) fL Neut % (Auto) (48.0-80.0) % Lymph % (Auto) (16.0-40.0) % [place] % (Auto) (0.0-15.0) % Eos % (Auto) (0.0-7.0) % Baso % (Auto) (0.0-1.5) % Neut # (Auto) (1.4-5.7) K/uL Lymph # (Auto) (0.6-2.4) K/uL [place] # (Auto) (0.0-0.8) K/uL Eos # (Auto) (0.0-0.7) K/uL Baso # (Auto) (0.0-0.1) K/uL Nucleated RBC % /100WBC Nucleated RBCs # K/uL INR APTT (18.6-31.3) SEC Sodium (136-145) mmol/L Potassium (3.5-5.1) mmol/L Chloride (98-107) mmol/L Carbon Dioxide (21.0-32.0) mmol/L BUN (7.0-18.0) mg/dL Creatinine (0.6-1.0) mg/dL Est Cr Clr Drug Dosing mL/min Estimated GFR (MDRD) ml/min Glucose (74-106) mg/dL POC Glucose 100 (60-110) mg/dL Calcium (8.5-10.1) mg/dL Phosphorus (2.6-4.7) mg/dL Magnesium (1.8-2.4) mg/dL Total Bilirubin (0.2-1.0) mg/dL AST (15-37) IU/L ALT (14-63) IU/L Alkaline Phosphatase (46-116) U/L Total Protein (6.4-8.2) g/dL Albumin (3.4-5.0) g/dL Globulin (2.6-4.0) g/dL Albumin/Globulin Ratio (0.9-1.6) Lipase (73-393) U/L Urine Color YELLOW Urine Appearance CLEAR Urine pH 7.0 (5.0-8.0) Ur Specific [place] <= 1.005 (1.001-1.035) Urine Protein NEGATIVE (NEGATIVE) mg/dL Urine Glucose (UA) NEGATIVE (NEGATIVE) mg/dL Urine Ketones NEGATIVE (NEGATIVE) mg/dL Urine Occult Blood NEGATIVE (NEGATIVE) Urine Nitrite NEGATIVE (NEGATIVE) Urine Bilirubin NEGATIVE (NEGATIVE) Urine Urobilinogen 1.0 (<2.0) EU/dL Ur Leukocyte Esterase NEGATIVE (NEGATIVE) SARS-CoV-2 RNA ([place]) NEGATIVE (NEGATIVE) 11/16/20 11/16/20 11/16/20 Range/Units 06:10 06:10 07:31 WBC 5.71 (4.0-11.0) K/uL RBC 2.61 L (4.30-5.90) M/uL Hgb 9.0 L (12.0-16.0) g/dL Hct 28.6 L (36.0-46.0) % MCV 109.6 H (80.0-98.0) fL MCH 34.5 H (27.0-32.0) pg MCHC 31.5 (31.0-37.0) g/dL RDW Std Deviation 55.8 (28.0-62.0) fl RDW Coeff of Blue 14 (11.0-15.0) % Plt Count 205 (150-400) K/uL MPV 10.20 (7.40-12.00) fL Neut % (Auto) 57.4 (48.0-80.0) % Lymph % (Auto) 27.7 (16.0-40.0) % [place] % (Auto) 6.5 (0.0-15.0) % Eos % (Auto) 7.7 H (0.0-7.0) % Baso % (Auto) 0.7 (0.0-1.5) % Neut # (Auto) 3.3 (1.4-5.7) K/uL Lymph # (Auto) 1.6 (0.6-2.4) K/uL [place] # (Auto) 0.4 (0.0-0.8) K/uL Eos # (Auto) 0.4 (0.0-0.7) K/uL Baso # (Auto) 0.0 (0.0-0.1) K/uL Nucleated RBC % 0.0 /100WBC Nucleated RBCs # 0 K/uL INR APTT (18.6-31.3) SEC Sodium 143 (136-145) mmol/L Potassium 3.9 (3.5-5.1) mmol/L Chloride 110 H (98-107) mmol/L Carbon Dioxide 27.3 (21.0-32.0) mmol/L BUN 8 (7.0-18.0) mg/dL Creatinine 0.5 L (0.6-1.0) mg/dL Est Cr Clr Drug Dosing 115.21 mL/min Estimated GFR (MDRD) > 60.0 ml/min Glucose 91 (74-106) mg/dL POC Glucose 90 (60-110) mg/dL Calcium 8.0 L (8.5-10.1) mg/dL Phosphorus 4.3 (2.6-4.7) mg/dL Magnesium 2.1 (1.8-2.4) mg/dL Total Bilirubin (0.2-1.0) mg/dL AST (15-37) IU/L ALT (14-63) IU/L Alkaline Phosphatase (46-116) U/L Total Protein (6.4-8.2) g/dL Albumin (3.4-5.0) g/dL Globulin (2.6-4.0) g/dL Albumin/Globulin Ratio (0.9-1.6) Lipase (73-393) U/L Urine Color Urine Appearance Urine pH (5.0-8.0) Ur Specific [place] (1.001-1.035) Urine Protein (NEGATIVE) mg/dL Urine Glucose (UA) (NEGATIVE) mg/dL Urine Ketones (NEGATIVE) mg/dL Urine Occult Blood (NEGATIVE) Urine Nitrite (NEGATIVE) Urine Bilirubin (NEGATIVE) Urine Urobilinogen (<2.0) EU/dL Ur Leukocyte Esterase (NEGATIVE) SARS-CoV-2 RNA ([place]) (NEGATIVE) Result Diagrams: 11/16/20 06:10 11/16/20 06:10 Sepsis Event Note - Evaluation Sepsis Screening Result: No Definite Risk - Focused Exam Vital Signs: Vital Signs Temp Resp BP Pulse Ox 11/16/20 12:00 98 F 18 105/66 99 11/16/20 07:53 97 F 18 94/48 L 100 11/16/20 04:50 97.1 F 18 89/52 L 97 - Problem List (1) Cirrhosis of liver SNOMED Code(s): 38713582 ICD Code: K74.60 - UNSPECIFIED CIRRHOSIS OF LIVER Status: Acute Current Visit: Yes (2) Pancreatitis SNOMED Code(s): 43653867 ICD Code: K85.90 - ACUTE PANCREATITIS WITHOUT NECROSIS OR INFECTION, UNSP Status: Acute Current Visit: Yes Qualifiers: Chronicity: acute Pancreatitis type: unspecified pancreatitis type Acute pancreatitis complication: unspecified Qualified Code(s): K85.90 - Acute pancreatitis without necrosis or infection, unspecified Problem List Initiated/Reviewed/Updated: Yes Orders Last 24hrs: Active Orders 24 hr Category Date Time Status Admission Status [Patient Status] [ADT] Stat ADT 11/15/20 23:37 Active Ambulate [RC] ASDIRECTED Care 11/15/20 23:41 Active Cardiac Monitoring Discontinue [RC] Click to Edit Care 11/16/20 11:45 Active Oxygen Therapy [RC] PRN Care 11/15/20 23:41 Active RT Aerosol Therapy [RC] ASDIRECTED Care 11/15/20 23:43 Active VTE/DVT Education [RC] PER UNIT ROUTINE Care 11/15/20 23:41 Active Vital Signs [RC] Q4H Care 11/15/20 23:41 Active Mechanical Soft Diet [DIET] Diet 11/16/20 Lunch Active Albuterol/Ipratropium [DuoNeb 3.0-0.5 MG/3 ML] Med 11/15/20 23:41 Active 3 ml NEB Q4HRRT PRN Dextrose 25% in Water Med 11/15/20 23:48 Active 10 ml IVPUSH Q6H PRN Enoxaparin [Lovenox] Med 11/16/20 09:00 Active 40 mg SUBCUT Q24H HYDROmorphone [Dilaudid] Med 11/15/20 23:41 Active 0.5 mg IVPUSH Q3H PRN Lactulose [Chronulac] Med 11/16/20 10:45 Stop Req 10 gm PO BID PRN Ondansetron [Zofran] Med 11/15/20 23:41 Active 4 mg IVPUSH Q4H PRN Pantoprazole [ProTONIX IV] 40 mg Med 11/16/20 01:15 Active Sodium Chloride 0.9% [Normal Saline] 10 ml IV Q24H Sodium Chloride 0.9% [Normal Saline] 500 ml Med 11/15/20 23:45 Active IV .BOLUS Sodium Chloride 0.9% [Saline Flush] Med 11/15/20 21:22 Active 10 ml FLUSH ASDIRECTED PRN Sodium Chloride 0.9% [Saline Flush] Med 11/15/20 21:22 Active 2.5 ml FLUSH ASDIRECTED PRN Saline Lock Insert [OM.PC] Stat Oth 11/15/20 21:22 Ordered Medication Orders Albuterol/Ipratropium (Duoneb 3.0-0.5 Mg/3 Ml) 3 ml NEB Q4HRRT PRN PRN Reason: Shortness Of Breath/wheezing Dextrose/Water (Dextrose 25% In Water) 10 ml IVPUSH Q6H PRN PRN Reason: Hypoglycemia Enoxaparin Sodium (Lovenox) 40 mg SUBCUT Q24H [facility] Last Admin: 11/16/20 10:15 Dose: Not Given Documented by: ALBIMAR Hydromorphone HCl (Dilaudid) 0.5 mg IVPUSH Q3H PRN PRN Reason: Pain (severe 7-10) Last Admin: 11/16/20 12:36 Dose: 0.5 mg Documented by: ALLYIMARegina Admin: 11/16/20 09:37 Dose: 0.5 mg Documented by: ALLYIMARegina Admin: 11/16/20 06:29 Dose: 0.5 mg Documented by: Admin: 11/16/20 02:48 Dose: 0.5 mg Documented by: GISSEL Sodium Chloride (Normal Saline) 500 mls @ 1,000 mls/hr IV .BOLUS DENISE Last Admin: 11/15/20 23:45 Dose: 1,000 mls/hr Documented by: INDIA Pantoprazole Sodium 40 mg/ (Sodium Chloride) 10 mls @ 300 mls/hr IV Q24H DENISE Last Admin: 11/16/20 01:16 Dose: 300 mls/hr Documented by: GISSEL Lactulose (Chronulac) 10 gm PO BID PRN PRN Reason: Constipation Ondansetron HCl (Zofran) 4 mg IVPUSH Q4H PRN PRN Reason: Nausea/Vomiting Last Admin: 11/16/20 02:48 Dose: 4 mg Documented by: GISSEL Sodium Chloride (Saline Flush) 10 ml FLUSH ASDIRECTED PRN PRN Reason: Keep Vein Open Sodium Chloride (Saline Flush) 2.5 ml FLUSH ASDIRECTED PRN PRN Reason: Keep Vein Open Assessment/Plan Comment:: 35-year-old female was admitted due to midepigastric pain status post paracentesis 2 times days. Significant history of alcohol abuse liver cirrhosis requiring paracentesis. 1. Midepigastric pain with history of pancreatitis: Status post paracentesis 2 days from right lower quadrant, some abdominal distention however CT showed minimal ascites fluid, pain well controlled, was kept n.p.o. overnight, this morning is hungry therefore will try patient on clear liquid diet and advance as tolerated. 2. Liver cirrhosis 2/2 EtOH abuse: Appropriate liver enzymes, no physical signs of jaundice, asymptomatic soft blood pressures as expected with cirrhosis, continue to monitor closely. Follow-up with GI in [place] post discharge Dispo: 1 to 2 days DVT prophylaxis Lovenox 40 subcu daily, GI prophylaxis pantoprazole 40 IV daily, activity ad daylin. <Kacey Jackson - Last Filed: 11/16/20 22:40> H&P History of Present Illness - General Admit Problem/Dx: Admission Diagnosis/Problem Admission Diagnosis/Problem Pancreatitis Exam - Vital Signs Vital Signs: Last Vital Signs Temp 36.4 C 11/16/20 20:45 Pulse 94 11/16/20 20:45 Resp 18 11/16/20 20:45 BP 97/57 L 11/16/20 20:45 Pulse Ox 99 11/16/20 20:45 - Patient Data Lab Results Last 24 hrs: Laboratory Results - last 24 hr 11/15/20 11/15/20 11/16/20 Range/Units 22:05 23:30 01:23 WBC (4.0-11.0) K/uL RBC (4.30-5.90) M/uL Hgb (12.0-16.0) g/dL Hct (36.0-46.0) % MCV (80.0-98.0) fL MCH (27.0-32.0) pg MCHC (31.0-37.0) g/dL RDW Std Deviation (28.0-62.0) fl RDW Coeff of Blue (11.0-15.0) % Plt Count (150-400) K/uL MPV (7.40-12.00) fL Neut % (Auto) (48.0-80.0) % Lymph % (Auto) (16.0-40.0) % [place] % (Auto) (0.0-15.0) % Eos % (Auto) (0.0-7.0) % Baso % (Auto) (0.0-1.5) % Neut # (Auto) (1.4-5.7) K/uL Lymph # (Auto) (0.6-2.4) K/uL [place] # (Auto) (0.0-0.8) K/uL Eos # (Auto) (0.0-0.7) K/uL Baso # (Auto) (0.0-0.1) K/uL Nucleated RBC % /100WBC Nucleated RBCs # K/uL Sodium (136-145) mmol/L Potassium (3.5-5.1) mmol/L Chloride (98-107) mmol/L Carbon Dioxide (21.0-32.0) mmol/L BUN (7.0-18.0) mg/dL Creatinine (0.6-1.0) mg/dL Est Cr Clr Drug Dosing mL/min Estimated GFR (MDRD) ml/min Glucose (74-106) mg/dL POC Glucose 100 (60-110) mg/dL Calcium (8.5-10.1) mg/dL Phosphorus (2.6-4.7) mg/dL Magnesium (1.8-2.4) mg/dL Urine Color YELLOW Urine Appearance CLEAR Urine pH 7.0 (5.0-8.0) Ur Specific [place] <= 1.005 (1.001-1.035) Urine Protein NEGATIVE (NEGATIVE) mg/dL Urine Glucose (UA) NEGATIVE (NEGATIVE) mg/dL Urine Ketones NEGATIVE (NEGATIVE) mg/dL Urine Occult Blood NEGATIVE (NEGATIVE) Urine Nitrite NEGATIVE (NEGATIVE) Urine Bilirubin NEGATIVE (NEGATIVE) Urine Urobilinogen 1.0 (<2.0) EU/dL Ur Leukocyte Esterase NEGATIVE (NEGATIVE) SARS-CoV-2 RNA ([place]) NEGATIVE (NEGATIVE) 11/16/20 11/16/20 11/16/20 Range/Units 06:10 06:10 07:31 WBC 5.71 (4.0-11.0) K/uL RBC 2.61 L (4.30-5.90) M/uL Hgb 9.0 L (12.0-16.0) g/dL Hct 28.6 L (36.0-46.0) % MCV 109.6 H (80.0-98.0) fL MCH 34.5 H (27.0-32.0) pg MCHC 31.5 (31.0-37.0) g/dL RDW Std Deviation 55.8 (28.0-62.0) fl RDW Coeff of Blue 14 (11.0-15.0) % Plt Count 205 (150-400) K/uL MPV 10.20 (7.40-12.00) fL Neut % (Auto) 57.4 (48.0-80.0) % Lymph % (Auto) 27.7 (16.0-40.0) % [place] % (Auto) 6.5 (0.0-15.0) % Eos % (Auto) 7.7 H (0.0-7.0) % Baso % (Auto) 0.7 (0.0-1.5) % Neut # (Auto) 3.3 (1.4-5.7) K/uL Lymph # (Auto) 1.6 (0.6-2.4) K/uL [place] # (Auto) 0.4 (0.0-0.8) K/uL Eos # (Auto) 0.4 (0.0-0.7) K/uL Baso # (Auto) 0.0 (0.0-0.1) K/uL Nucleated RBC % 0.0 /100WBC Nucleated RBCs # 0 K/uL Sodium 143 (136-145) mmol/L Potassium 3.9 (3.5-5.1) mmol/L Chloride 110 H (98-107) mmol/L Carbon Dioxide 27.3 (21.0-32.0) mmol/L BUN 8 (7.0-18.0) mg/dL Creatinine 0.5 L (0.6-1.0) mg/dL Est Cr Clr Drug Dosing 115.21 mL/min Estimated GFR (MDRD) > 60.0 ml/min Glucose 91 (74-106) mg/dL POC Glucose 90 (60-110) mg/dL Calcium 8.0 L (8.5-10.1) mg/dL Phosphorus 4.3 (2.6-4.7) mg/dL Magnesium 2.1 (1.8-2.4) mg/dL Urine Color Urine Appearance Urine pH (5.0-8.0) Ur Specific [place] (1.001-1.035) Urine Protein (NEGATIVE) mg/dL Urine Glucose (UA) (NEGATIVE) mg/dL Urine Ketones (NEGATIVE) mg/dL Urine Occult Blood (NEGATIVE) Urine Nitrite (NEGATIVE) Urine Bilirubin (NEGATIVE) Urine Urobilinogen (<2.0) EU/dL Ur Leukocyte Esterase (NEGATIVE) SARS-CoV-2 RNA ([place]) (NEGATIVE) Result Diagrams: 11/16/20 06:10 11/16/20 06:10 Sepsis Event Note - Focused Exam Vital Signs: Vital Signs Temp Pulse Resp BP BP Pulse Ox 11/16/20 20:45 36.4 C 94 18 97/57 L 99 11/16/20 15:43 36.3 C 16 112/61 100 11/16/20 12:00 36.6 C 18 105/66 99 Orders Last 24hrs: Active Orders 24 hr Category Date Time Status Admission Status [Patient Status] [ADT] Stat ADT 11/15/20 23:37 Active Ambulate [RC] ASDIRECTED Care 11/15/20 23:41 Active Cardiac Monitoring Discontinue [RC] Click to Edit Care 11/16/20 11:45 Active Oxygen Therapy [RC] PRN Care 11/15/20 23:41 Active RT Aerosol Therapy [RC] ASDIRECTED Care 11/15/20 23:43 Active VTE/DVT Education [RC] PER UNIT ROUTINE Care 11/15/20 23:41 Active Vital Signs [RC] Q4H Care 11/15/20 23:41 Active Mechanical Soft Diet [DIET] Diet 11/16/20 Lunch Active Albuterol/Ipratropium [DuoNeb 3.0-0.5 MG/3 ML] Med 11/15/20 23:41 Active 3 ml NEB Q4HRRT PRN Dextrose 25% in Water Med 11/15/20 23:48 Active 10 ml IVPUSH Q6H PRN Enoxaparin [Lovenox] Med 11/16/20 09:00 Active 40 mg SUBCUT Q24H HYDROmorphone [Dilaudid] Med 11/15/20 23:41 Active 0.5 mg IVPUSH Q3H PRN Ibuprofen [Motrin] Med 11/16/20 18:42 Active 200 mg PO Q6H PRN Ondansetron [Zofran] Med 11/15/20 23:41 Active 4 mg IVPUSH Q4H PRN Pantoprazole [ProTONIX IV] 40 mg Med 11/16/20 01:15 Active Sodium Chloride 0.9% [Normal Saline] 10 ml IV Q24H Sodium Chloride 0.9% [Normal Saline] 500 ml Med 11/15/20 23:45 Active IV .BOLUS Medication Orders Albuterol/Ipratropium (Duoneb 3.0-0.5 Mg/3 Ml) 3 ml NEB Q4HRRT PRN PRN Reason: Shortness Of Breath/wheezing Dextrose/Water (Dextrose 25% In Water) 10 ml IVPUSH Q6H PRN PRN Reason: Hypoglycemia Enoxaparin Sodium (Lovenox) 40 mg SUBCUT Q24H DENISE Last Admin: 11/16/20 10:15 Dose: Not Given Documented by: LE Hydromorphone HCl (Dilaudid) 0.5 mg IVPUSH Q3H PRN PRN Reason: Pain (severe 7-10) Last Admin: 11/16/20 21:37 Dose: 0.5 mg Documented by: Admin: 11/16/20 18:35 Dose: 0.5 mg Documented by: Admin: 11/16/20 15:30 Dose: 0.5 mg Documented by: Admin: 11/16/20 12:36 Dose: 0.5 mg Documented by: Admin: 11/16/20 09:37 Dose: 0.5 mg Documented by: [email or web address] Admin: 11/16/20 06:29 Dose: 0.5 mg Documented by: Admin: 11/16/20 02:48 Dose: 0.5 mg Documented by: GISSEL Sodium Chloride (Normal Saline) 500 mls @ 1,000 mls/hr IV .BOLUS DENISE Last Admin: 11/15/20 23:45 Dose: 1,000 mls/hr Documented by: INDIA Pantoprazole Sodium 40 mg/ (Sodium Chloride) 10 mls @ 300 mls/hr IV Q24H DENISE Last Admin: 11/16/20 01:16 Dose: 300 mls/hr Documented by: GISSEL Ibuprofen (Motrin) 200 mg PO Q6H PRN PRN Reason: Pain (moderate 4-6) Last Admin: 11/16/20 18:54 Dose: 200 mg Documented by: EMMETT Ondansetron HCl (Zofran) 4 mg IVPUSH Q4H PRN PRN Reason: Nausea/Vomiting Last Admin: 11/16/20 15:39 Dose: 4 mg Documented by: Admin: 11/16/20 02:48 Dose: 4 mg Documented by: GISSEL Sodium Chloride (Saline Flush) 10 ml FLUSH ASDIRECTED PRN PRN Reason: Keep Vein Open Sodium Chloride (Saline Flush) 2.5 ml FLUSH ASDIRECTED PRN PRN Reason: Keep Vein Open Assessment/Plan Comment:: I performed a history and physical exam of the patient and discussed management with resident. I have reviewed the residents note and agree with documented findings and plan unless otherwise specified in my note.
[2020-11-16] MEDS: Ibuprofen 200 MG Tab PO PRN (18:54)
[2020-11-16] MEDS ORDERED: LORazepam 0.5 MG Tab PO PRN (21:00)
[2020-11-17] MEDS: HYDROmorphone 2 MG/ML Syringe IVPUSH PRN ×2 (00:45→04:02)
[2020-11-17] MEDS: Pantoprazole 40 MG in Sodium Chloride 0.9% 10 ML IV SCH (00:46)
[2020-11-17] MEDS: Ondansetron 4 MG/2 ML SDV IVPUSH PRN (00:52)
[2020-11-17 04:27] LABS: BLOOD UREA NITROGEN,BUN 9 mg/dL (7.0-18.0); CARBON DIOXIDE,CO2 27.2 mmol/L (21.0-32.0); CHLORIDE,CL 110 mmol/L (98-107); GLUCOSE RANDOM 94 mg/dL (74-106); POTASSIUM,K 4.3 mmol/L (3.5-5.1); SODIUM,NA 142 mmol/L (136-145)
[2020-11-17] MEDS: Ibuprofen 200 MG Tab PO PRN (04:28)
[2020-11-17] MEDS ORDERED: HYDROmorphone 1 MG/ML Syringe IVPUSH PRN (07:30)
[2020-11-17] MEDS ORDERED: Magnesium Sulfate/Water 2 GM/50 ML BAG IV ONE (07:30)
[2020-11-17] MEDS: Enoxaparin 40 MG/0.4 ML Syringe SUBCUT SCH (08:24)
--- NOTE | 2020-11-17 08:53 | PCM.PN ---
- General Info Date of Service: 11/17/20 Subjective Update: 35 y.o female w. ETOH cirrhosis: mentions wanting to try more solid food. Pain is the same as yesterday. - Review of Systems General: Denies: Fever, Fatigue HEENT: Reports: No Symptoms Pulmonary: Reports: No Symptoms Cardiovascular: Reports: No Symptoms Gastrointestinal: Reports: Abdominal Pain, Nausea. Denies: Decreased Appetite, Diarrhea, Vomiting Genitourinary: Reports: No Symptoms Musculoskeletal: Reports: No Symptoms Skin: Reports: No Symptoms Neurological: Reports: No Symptoms Psychiatric: Reports: No Symptoms - Patient Data Vitals - Most Recent: Last Vital Signs Temp 96.7 F L 11/17/20 04:06 Pulse 82 11/17/20 04:06 Resp 18 11/17/20 04:06 BP 103/55 L 11/17/20 04:06 Pulse Ox 100 11/17/20 04:06 Weight - Most Recent: 46.918 kg I&O - Last 24 Hours: Intake & Output 11/16/20 11/17/20 11/17/20 22:59 06:59 14:59 Intake Total 960 650 50 Output Total 1150 2250 Balance -190 -1600 50 Lab Results Last 24 Hours: Laboratory Results - last 24 hr 11/17/20 11/17/20 Range/Units 04:00 04:00 WBC 4.33 (4.0-11.0) K/uL RBC 2.52 L (4.30-5.90) M/uL Hgb 8.9 L (12.0-16.0) g/dL Hct 27.2 L (36.0-46.0) % MCV 107.9 H (80.0-98.0) fL MCH 35.3 H (27.0-32.0) pg MCHC 32.7 (31.0-37.0) g/dL RDW Std Deviation 52.3 (28.0-62.0) fl RDW Coeff of Blue 13 (11.0-15.0) % Plt Count 183 (150-400) K/uL MPV 9.90 (7.40-12.00) fL Neut % (Auto) 52.9 (48.0-80.0) % Lymph % (Auto) 30.3 (16.0-40.0) % [place] % (Auto) 7.4 (0.0-15.0) % Eos % (Auto) 8.5 H (0.0-7.0) % Baso % (Auto) 0.9 (0.0-1.5) % Neut # (Auto) 2.3 (1.4-5.7) K/uL Lymph # (Auto) 1.3 (0.6-2.4) K/uL [place] # (Auto) 0.3 (0.0-0.8) K/uL Eos # (Auto) 0.4 (0.0-0.7) K/uL Baso # (Auto) 0.0 (0.0-0.1) K/uL Nucleated RBC % 0.0 /100WBC Nucleated RBCs # 0 K/uL Sodium 142 (136-145) mmol/L Potassium 4.3 (3.5-5.1) mmol/L Chloride 110 H (98-107) mmol/L Carbon Dioxide 27.2 (21.0-32.0) mmol/L BUN 9 (7.0-18.0) mg/dL Creatinine 0.6 (0.6-1.0) mg/dL Est Cr Clr Drug Dosing 96.01 mL/min Estimated GFR (MDRD) > 60.0 ml/min Glucose 94 (74-106) mg/dL Calcium 8.5 (8.5-10.1) mg/dL Phosphorus 4.3 (2.6-4.7) mg/dL Magnesium 1.7 L (1.8-2.4) mg/dL Total Bilirubin 0.4 (0.2-1.0) mg/dL AST 61 H (15-37) IU/L ALT 31 (14-63) IU/L Alkaline Phosphatase 72 (46-116) U/L Total Protein 5.0 L (6.4-8.2) g/dL Albumin 1.6 L (3.4-5.0) g/dL Globulin 3.4 (2.6-4.0) g/dL Albumin/Globulin Ratio 0.5 L (0.9-1.6) Med Orders - Current: Current Medications Albuterol/Ipratropium (Duoneb 3.0-0.5 Mg/3 Ml) 3 ml NEB Q4HRRT PRN PRN Reason: Shortness Of Breath/wheezing Dextrose/Water (Dextrose 25% In Water) 10 ml IVPUSH Q6H PRN PRN Reason: Hypoglycemia Enoxaparin Sodium (Lovenox) 40 mg SUBCUT Q24H [facility] Last Admin: 11/17/20 08:24 Dose: Not Given Documented by: Hydromorphone HCl (Dilaudid) 0.5 mg IVPUSH Q3H PRN PRN Reason: Pain (severe 7-10) Last Admin: 11/17/20 08:07 Dose: 0.5 mg Documented by: Sodium Chloride (Normal Saline) 500 mls @ 1,000 mls/hr IV .BOLUS [facility] Last Admin: 11/15/20 23:45 Dose: 1,000 mls/hr Documented by: Pantoprazole Sodium 40 mg/ (Sodium Chloride) 10 mls @ 300 mls/hr IV Q24H [facility] Last Admin: 11/17/20 00:46 Dose: 300 mls/hr Documented by: Ibuprofen (Motrin) 200 mg PO Q6H PRN PRN Reason: Pain (moderate 4-6) Last Admin: 11/17/20 04:28 Dose: 200 mg Documented by: Multivitamins/Minerals/Vitamin C (Tab-A-Pedro) 1 tab PO DAILY [facility] Last Admin: 11/17/20 08:14 Dose: 1 tab Documented by: Ondansetron HCl (Zofran) 4 mg IVPUSH Q4H PRN PRN Reason: Nausea/Vomiting Last Admin: 11/17/20 00:52 Dose: 4 mg Documented by: Sodium Chloride (Saline Flush) 10 ml FLUSH ASDIRECTED PRN PRN Reason: Keep Vein Open Sodium Chloride (Saline Flush) 2.5 ml FLUSH ASDIRECTED PRN PRN Reason: Keep Vein Open Discontinued Medications Enoxaparin Sodium (Lovenox) 40 mg SUBCUT Q24H [facility] Enoxaparin Sodium (Lovenox) 40 mg SUBCUT Q24H [facility] Last Admin: 11/16/20 01:07 Dose: Not Given Documented by: Furosemide (Lasix) 20 mg PO DAILY PRN PRN Reason: Edema Hydromorphone HCl (Dilaudid) 1 mg IVPUSH ONETIME ONE Stop: 11/15/20 21:23 Last Admin: 11/15/20 21:32 Dose: 1 mg Documented by: Hydromorphone HCl (Dilaudid) 0.5 mg IVPUSH ONETIME ONE Stop: 11/15/20 23:25 Last Admin: 11/15/20 23:39 Dose: 0.5 mg Documented by: Hydromorphone HCl (Dilaudid) 0.5 mg IVPUSH Q3H PRN PRN Reason: Pain (severe 7-10) Last Admin: 11/17/20 04:02 Dose: 0.5 mg Documented by: Lactated Ringer's (Ringers, Lactated) 1,000 mls @ 100 mls/hr IV ASDIRECTED [facility] Last Admin: 11/16/20 09:34 Dose: 100 mls/hr Documented by: Magnesium Sulfate (Magnesium Sulfate In Water Premix) 2 gm in 50 mls @ 50 mls/hr IV ONETIME ONE Stop: 11/16/20 00:43 Last Admin: 11/15/20 23:55 Dose: 50 mls/hr Documented by: Magnesium Sulfate (Magnesium Sulfate In Water Premix) 2 gm in 50 mls @ 50 mls/hr IV ONETIME ONE Stop: 11/17/20 08:29 Last Admin: 11/17/20 08:11 Dose: 50 mls/hr Documented by: Iopamidol (Isovue Multipack-370 (76%)) 100 ml IVPUSH ONETIME STA Stop: 11/15/20 22:35 Last Admin: 11/15/20 22:34 Dose: 100 ml Documented by: Lactulose (Chronulac) 10 gm PO BID PRN PRN Reason: Constipation Lorazepam (Ativan) 0.5 mg PO BEDTIME PRN PRN Reason: ANXIETY/INSOMNIA Ondansetron HCl (Zofran) 4 mg IVPUSH ONETIME ONE Stop: 11/15/20 21:23 Last Admin: 11/15/20 21:32 Dose: 4 mg Documented by: - Exam General: Alert, Oriented HEENT: EOMI Neck: Supple Lungs: Clear to Auscultation, Normal Respiratory Effort Cardiovascular: Regular Rate, Regular Rhythm GI/Abdominal Exam: Tender Back Exam: Normal Inspection Extremities: Other (trace edema in lower extremities ) Neurological: No New Focal Deficit Psy/Mental Status: Alert, Normal Affect, Normal Mood Sepsis Event Note - Evaluation Sepsis Screening Result: No Definite Risk - Focused Exam Vital Signs: Vital Signs Temp Pulse Resp BP Pulse Ox 11/17/20 04:06 96.7 F L 82 18 103/55 L 100 11/17/20 00:43 96.9 F 88 18 103/65 100 - Problem List Review Problem List Initiated/Reviewed/Updated: Yes - My Orders Last 24 Hours: My Active Orders 11/17/20 09:00 Multivitamins [Tab-A-Pedro] 1 tab PO DAILY - Plan Plan:: 35-year-old female was admitted due to midepigastric pain status post paracentesis . Significant history of alcohol abuse liver cirrhosis requiring paracentesis. 1. Midepigastric pain with history of pancreatitis: Recheck ultrasound for asciitis fluid accumulation -Switch to PO oxycodone and advance diet to GI 2. Liver cirrhosis 2/2 EtOH abuse: -AST> ALT. Avoid hepatotoxic medications Follow-up with GI in [place] post discharge
[2020-11-17] MEDS ORDERED: Multivitamin Tab PO SCH (09:00)
[2020-11-17] MEDS ORDERED: oxyCODONE 5 MG Tab PO PRN (09:31)
[2020-11-17] MEDS ORDERED: LORazepam 0.5 MG Tab PO PRN (09:34)
[2020-11-17] MEDS ORDERED: Furosemide 20 MG Tab PO SCH (09:45)
--- NOTE | 2020-11-17 09:47 | PCM.DCSUM1 ---
<Anca Arceo - Last Filed: 11/17/20 10:45> Discharge Summary - Hospital Course Free Text/Narrative:: Discharge summary Hospital course: Patient is a 35-year-old female with a significant past medical history of alcohol abuse with alcoholic cirrhosis requiring weekly paracentesis. Present ing today status post paracentesis (on tuesday11-14-2020) with acute onset abdominal discomfort with nausea. States she also had her dog fall onto her belly further contributing to her pain. Labs performed suggested no significant infectious process and or worsening anemia (MAcrocytic anemia stable, transminitis in light of cirrhosis acceptable; magnesium low but was repleted) . Patient was given Dilaudid and Zofran in the ED. Patient was continued on home medication of lactulose and furosemide for lower extremity swelling. Pain was controlled with Dilaudid 0.5 mg every 3 hours as needed. Throughout stay patient began to tolerate diet and requesting more food. Switched back to pain control of oxycodone 5 mg every 4 hours and resumed home medication of lorazepam as needed. CT scan performed showed minimal ascites and a cirrhotic liver. Patient was discharged and advised to follow-up with outpatient gastroenterology as previously scheduled. Discharged with written prescription of oxycodone 5 mg every 4 hours x4 days. Patient requested discharge. Tolerating p.o. diet. Having daily bowel movements. Refill lactulose and home medication of oxycodone. Discharge condition: Stable Disposition: Home Follow-up: GI PCP - Discharge Data Discharge Date: 11/17/20 Discharge Disposition: Home, Self-Care 01 Condition: Good - Referral to Home Health Primary Care Physician: Amber Goldsmith NP - Discharge Plan Prescriptions/Med Rec: Lactulose 10 gm PO BID PRN 10 Days #1 bottle PRN Reason: Constipation oxyCODONE 5 mg PO Q4H PRN 4 Days #24 tablet PRN Reason: Pain Home Medications: Home Meds Omeprazole 20 mg PO BIDAC 10/06/20 [History] Furosemide 20 mg PO DAILY PRN 10 Days #10 tablet 10/16/20 [Rx] Multivitamins [Tab-A-Pedro] 1 tab PO DAILY tablet 10/16/20 [Rx] LORazepam [Ativan] 0.5 mg PO BEDTIME PRN 11/11/20 [History] Furosemide [Lasix] 20 mg PO DAILY tablet 11/17/20 [Rx] Ibuprofen [Motrin] 200 mg PO Q6H PRN tablet 11/17/20 [Rx] LORazepam [Ativan] 0.5 mg PO Q12H PRN tablet 11/17/20 [Rx] Lactulose 10 gm PO BID PRN 10 Days #1 bottle 11/17/20 [Rx] Multivitamins [Tab-A-Pedro] 1 tab PO DAILY tablet 11/17/20 [Rx] oxyCODONE 5 mg PO Q4H PRN 4 Days #24 tablet 11/17/20 [Rx] Patient Handouts: Acute Pancreatitis, [id number], Oxycodone tablets or capsules, Lorazepam tablets, Lactulose oral solution Forms: ED Department Discharge Referrals: Amber Goldsmith NP [Primary Care Provider] - 11/18/20 10:15 am (Please arrive 15 minutes before appointment time. Bring photo ID and insurance. Please wear mask.) - Discharge Summary/Plan Comment DC Time >30 min.: No - Patient Data Vitals - Most Recent: Last Vital Signs Temp 96.7 F L 11/17/20 08:00 Pulse 78 11/17/20 08:00 Resp 16 11/17/20 08:00 BP 92/41 L 11/17/20 08:00 Pulse Ox 97 11/17/20 08:00 Weight - Most Recent: 46.918 kg I&O - Last 24 hours: Intake & Output 11/16/20 11/17/20 11/17/20 22:59 06:59 14:59 Intake Total 960 650 50 Output Total 1150 2250 Balance -190 -1600 50 Lab Results - Last 24 hrs: Laboratory Results - last 24 hr 11/17/20 11/17/20 Range/Units 04:00 04:00 WBC 4.33 (4.0-11.0) K/uL RBC 2.52 L (4.30-5.90) M/uL Hgb 8.9 L (12.0-16.0) g/dL Hct 27.2 L (36.0-46.0) % MCV 107.9 H (80.0-98.0) fL MCH 35.3 H (27.0-32.0) pg MCHC 32.7 (31.0-37.0) g/dL RDW Std Deviation 52.3 (28.0-62.0) fl RDW Coeff of Blue 13 (11.0-15.0) % Plt Count 183 (150-400) K/uL MPV 9.90 (7.40-12.00) fL Neut % (Auto) 52.9 (48.0-80.0) % Lymph % (Auto) 30.3 (16.0-40.0) % [place] % (Auto) 7.4 (0.0-15.0) % Eos % (Auto) 8.5 H (0.0-7.0) % Baso % (Auto) 0.9 (0.0-1.5) % Neut # (Auto) 2.3 (1.4-5.7) K/uL Lymph # (Auto) 1.3 (0.6-2.4) K/uL [place] # (Auto) 0.3 (0.0-0.8) K/uL Eos # (Auto) 0.4 (0.0-0.7) K/uL Baso # (Auto) 0.0 (0.0-0.1) K/uL Nucleated RBC % 0.0 /100WBC Nucleated RBCs # 0 K/uL Sodium 142 (136-145) mmol/L Potassium 4.3 (3.5-5.1) mmol/L Chloride 110 H (98-107) mmol/L Carbon Dioxide 27.2 (21.0-32.0) mmol/L BUN 9 (7.0-18.0) mg/dL Creatinine 0.6 (0.6-1.0) mg/dL Est Cr Clr Drug Dosing 96.01 mL/min Estimated GFR (MDRD) > 60.0 ml/min Glucose 94 (74-106) mg/dL Calcium 8.5 (8.5-10.1) mg/dL Phosphorus 4.3 (2.6-4.7) mg/dL Magnesium 1.7 L (1.8-2.4) mg/dL Total Bilirubin 0.4 (0.2-1.0) mg/dL AST 61 H (15-37) IU/L ALT 31 (14-63) IU/L Alkaline Phosphatase 72 (46-116) U/L Total Protein 5.0 L (6.4-8.2) g/dL Albumin 1.6 L (3.4-5.0) g/dL Globulin 3.4 (2.6-4.0) g/dL Albumin/Globulin Ratio 0.5 L (0.9-1.6) Med Orders - Current: Current Medications Albuterol/Ipratropium (Duoneb 3.0-0.5 Mg/3 Ml) 3 ml NEB Q4HRRT PRN PRN Reason: Shortness Of Breath/wheezing Dextrose/Water (Dextrose 25% In Water) 10 ml IVPUSH Q6H PRN PRN Reason: Hypoglycemia Enoxaparin Sodium (Lovenox) 40 mg SUBCUT Q24H [facility] Last Admin: 11/17/20 08:24 Dose: Not Given Documented by: Furosemide (Lasix) 20 mg PO DAILY [facility] Sodium Chloride (Normal Saline) 500 mls @ 1,000 mls/hr IV .BOLUS [facility] Last Admin: 11/15/20 23:45 Dose: 1,000 mls/hr Documented by: Pantoprazole Sodium 40 mg/ (Sodium Chloride) 10 mls @ 300 mls/hr IV Q24H [facility] Last Admin: 11/17/20 00:46 Dose: 300 mls/hr Documented by: Ibuprofen (Motrin) 200 mg PO Q6H PRN PRN Reason: Pain (moderate 4-6) Last Admin: 11/17/20 04:28 Dose: 200 mg Documented by: Lorazepam (Ativan) 0.5 mg PO Q12H PRN PRN Reason: Anxiety Multivitamins/Minerals/Vitamin C (Tab-A-Pedro) 1 tab PO DAILY [facility] Last Admin: 11/17/20 08:14 Dose: 1 tab Documented by: Ondansetron HCl (Zofran) 4 mg IVPUSH Q4H PRN PRN Reason: Nausea/Vomiting Last Admin: 11/17/20 00:52 Dose: 4 mg Documented by: Oxycodone HCl (Oxycodone) 5 mg PO Q4H PRN PRN Reason: Pain Sodium Chloride (Saline Flush) 10 ml FLUSH ASDIRECTED PRN PRN Reason: Keep Vein Open Sodium Chloride (Saline Flush) 2.5 ml FLUSH ASDIRECTED PRN PRN Reason: Keep Vein Open Discontinued Medications Enoxaparin Sodium (Lovenox) 40 mg SUBCUT Q24H [facility] Enoxaparin Sodium (Lovenox) 40 mg SUBCUT Q24H [facility] Last Admin: 11/16/20 01:07 Dose: Not Given Documented by: Furosemide (Lasix) 20 mg PO DAILY PRN PRN Reason: Edema Hydromorphone HCl (Dilaudid) 1 mg IVPUSH ONETIME ONE Stop: 11/15/20 21:23 Last Admin: 11/15/20 21:32 Dose: 1 mg Documented by: Hydromorphone HCl (Dilaudid) 0.5 mg IVPUSH ONETIME ONE Stop: 11/15/20 23:25 Last Admin: 11/15/20 23:39 Dose: 0.5 mg Documented by: Hydromorphone HCl (Dilaudid) 0.5 mg IVPUSH Q3H PRN PRN Reason: Pain (severe 7-10) Last Admin: 11/17/20 04:02 Dose: 0.5 mg Documented by: Hydromorphone HCl (Dilaudid) 0.5 mg IVPUSH Q3H PRN PRN Reason: Pain (severe 7-10) Last Admin: 11/17/20 08:07 Dose: 0.5 mg Documented by: Lactated Ringer's (Ringers, Lactated) 1,000 mls @ 100 mls/hr IV ASDIRECTED [facility] Last Admin: 11/16/20 09:34 Dose: 100 mls/hr Documented by: Magnesium Sulfate (Magnesium Sulfate In Water Premix) 2 gm in 50 mls @ 50 mls/hr IV ONETIME ONE Stop: 11/16/20 00:43 Last Admin: 11/15/20 23:55 Dose: 50 mls/hr Documented by: Magnesium Sulfate (Magnesium Sulfate In Water Premix) 2 gm in 50 mls @ 50 mls/hr IV ONETIME ONE Stop: 11/17/20 08:29 Last Admin: 11/17/20 08:11 Dose: 50 mls/hr Documented by: Iopamidol (Isovue Multipack-370 (76%)) 100 ml IVPUSH ONETIME STA Stop: 11/15/20 22:35 Last Admin: 11/15/20 22:34 Dose: 100 ml Documented by: Lactulose (Chronulac) 10 gm PO BID PRN PRN Reason: Constipation Lorazepam (Ativan) 0.5 mg PO BEDTIME PRN PRN Reason: ANXIETY/INSOMNIA Ondansetron HCl (Zofran) 4 mg IVPUSH ONETIME ONE Stop: 11/15/20 21:23 Last Admin: 11/15/20 21:32 Dose: 4 mg Documented by: <Kacey Jackson - Last Filed: 11/18/20 10:48> Discharge Summary - Hospital Course Free Text/Narrative:: I have seen and evaluated the patient and agree with the residents note unless specified in my note - Referral to Home Health Primary Care Physician: Amber Goldsmith NP - Patient Data Vitals - Most Recent: Last Vital Signs Temp 35.9 C L 11/17/20 08:00 Pulse 78 11/17/20 08:00 Resp 16 11/17/20 08:00 BP 92/41 L 11/17/20 08:00 Pulse Ox 97 11/17/20 08:00 Med Orders - Current: Current Medications Discontinued Medications Albuterol/Ipratropium (Duoneb 3.0-0.5 Mg/3 Ml) 3 ml NEB Q4HRRT PRN PRN Reason: Shortness Of Breath/wheezing Dextrose/Water (Dextrose 25% In Water) 10 ml IVPUSH Q6H PRN PRN Reason: Hypoglycemia Enoxaparin Sodium (Lovenox) 40 mg SUBCUT Q24H [facility] Enoxaparin Sodium (Lovenox) 40 mg SUBCUT Q24H [facility] Last Admin: 11/16/20 01:07 Dose: Not Given Documented by: Enoxaparin Sodium (Lovenox) 40 mg SUBCUT Q24H [facility] Last Admin: 11/17/20 08:24 Dose: Not Given Documented by: Furosemide (Lasix) 20 mg PO DAILY PRN PRN Reason: Edema Furosemide (Lasix) 20 mg PO DAILY [facility] Last Admin: 11/17/20 09:59 Dose: 20 mg Documented by: Hydromorphone HCl (Dilaudid) 1 mg IVPUSH ONETIME ONE Stop: 11/15/20 21:23 Last Admin: 11/15/20 21:32 Dose: 1 mg Documented by: Hydromorphone HCl (Dilaudid) 0.5 mg IVPUSH ONETIME ONE Stop: 11/15/20 23:25 Last Admin: 11/15/20 23:39 Dose: 0.5 mg Documented by: Hydromorphone HCl (Dilaudid) 0.5 mg IVPUSH Q3H PRN PRN Reason: Pain (severe 7-10) Last Admin: 11/17/20 04:02 Dose: 0.5 mg Documented by: Hydromorphone HCl (Dilaudid) 0.5 mg IVPUSH Q3H PRN PRN Reason: Pain (severe 7-10) Last Admin: 11/17/20 08:07 Dose: 0.5 mg Documented by: Sodium Chloride (Normal Saline) 500 mls @ 1,000 mls/hr IV .BOLUS [facility] Last Admin: 11/15/20 23:45 Dose: 1,000 mls/hr Documented by: Lactated Ringer's (Ringers, Lactated) 1,000 mls @ 100 mls/hr IV ASDIRECTED [facility] Last Admin: 11/16/20 09:34 Dose: 100 mls/hr Documented by: Magnesium Sulfate (Magnesium Sulfate In Water Premix) 2 gm in 50 mls @ 50 mls/hr IV ONETIME ONE Stop: 11/16/20 00:43 Last Admin: 11/15/20 23:55 Dose: 50 mls/hr Documented by: Pantoprazole Sodium 40 mg/ (Sodium Chloride) 10 mls @ 300 mls/hr IV Q24H [facility] Last Admin: 11/17/20 00:46 Dose: 300 mls/hr Documented by: Magnesium Sulfate (Magnesium Sulfate In Water Premix) 2 gm in 50 mls @ 50 mls/hr IV ONETIME ONE Stop: 11/17/20 08:29 Last Admin: 11/17/20 08:11 Dose: 50 mls/hr Documented by: Ibuprofen (Motrin) 200 mg PO Q6H PRN PRN Reason: Pain (moderate 4-6) Last Admin: 11/17/20 04:28 Dose: 200 mg Documented by: Iopamidol (Isovue Multipack-370 (76%)) 100 ml IVPUSH ONETIME STA Stop: 11/15/20 22:35 Last Admin: 11/15/20 22:34 Dose: 100 ml Documented by: Lactulose (Chronulac) 10 gm PO BID PRN PRN Reason: Constipation Lorazepam (Ativan) 0.5 mg PO BEDTIME PRN PRN Reason: ANXIETY/INSOMNIA Lorazepam (Ativan) 0.5 mg PO Q12H PRN PRN Reason: Anxiety Last Admin: 11/17/20 09:59 Dose: 0.5 mg Documented by: Multivitamins/Minerals/Vitamin C (Tab-A-Pedro) 1 tab PO DAILY [facility] Last Admin: 11/17/20 08:14 Dose: 1 tab Documented by: Ondansetron HCl (Zofran) 4 mg IVPUSH ONETIME ONE Stop: 11/15/20 21:23 Last Admin: 11/15/20 21:32 Dose: 4 mg Documented by: Ondansetron HCl (Zofran) 4 mg IVPUSH Q4H PRN PRN Reason: Nausea/Vomiting Last Admin: 11/17/20 00:52 Dose: 4 mg Documented by: Oxycodone HCl (Oxycodone) 5 mg PO Q4H PRN PRN Reason: Pain Sodium Chloride (Saline Flush) 10 ml FLUSH ASDIRECTED PRN PRN Reason: Keep Vein Open Sodium Chloride (Saline Flush) 2.5 ml FLUSH ASDIRECTED PRN PRN Reason: Keep Vein Open
== END 2020-11-17 11:05 | disposition home or self-care (01) ==
LOC: MW.ED 20:50 → MW.ICU 23:37
PROVIDERS: ADMIT Student in an Organized Health Care Education/Training Program; ATTEND Student in an Organized Health Care Education/Training Program
DX: K70.31 Alcoholic cirrhosis of liver with ascites (principal); K85.90 Acute pancreatitis without necrosis or infection, unspecified; Z88.5 Allergy status to narcotic agent; Z79.899 Other long term (current) drug therapy; Z87.891 Personal history of nicotine dependence; Z20.822 Contact with and (suspected) exposure to COVID-19
CPT/HCPCS: 36415; 74177; 80048; 80053; 81003; 82962; 83690; 83735; 84100; 85025; 85610; 85730; 87635; 96361; 96365; 96375; 96376; 99285; A9270; C9113; G0378; J1170; J2405; J3475; J7040; J7120; Q9967; 99284; U0002

== ENCOUNTER 2020-11-21 17:43 | Emergency (ER) | payer BC ==
[2020-11-21] MEDS ORDERED: Sodium Chloride 0.9% 1,000 ML IV ONE (18:13)
[2020-11-21] MEDS ORDERED: HYDROmorphone 1 MG/ML Syringe IVPUSH ONE ×2 (18:14→20:10)
[2020-11-21] MEDS ORDERED: Ondansetron 4 MG/2 ML SDV IVPUSH ONE (18:14)
--- NOTE | 2020-11-21 18:21 | EDM.PDOC ---
<Yefri Dooleyophe - Last Filed: 11/21/20 22:01> ED HPI GENERAL MEDICAL PROBLEM - General Chief Complaint: Abdominal Pain Stated Complaint: SICK Time Seen by Provider: 11/21/20 18:06 - Related Data Allergies Allergy/AdvReac Type Severity Reaction Status Date / Time codeine Allergy Mild Nausea and Verified 11/21/20 18:43 Vomiting Home Meds: Home Meds Omeprazole 20 mg PO BIDAC 10/06/20 [History] Furosemide 20 mg PO DAILY PRN 10 Days #10 tablet 10/16/20 [Rx] Multivitamins [Tab-A-Pedro] 1 tab PO DAILY tablet 10/16/20 [Rx] LORazepam [Ativan] 0.5 mg PO BEDTIME PRN 11/11/20 [History] Furosemide [Lasix] 20 mg PO DAILY tablet 11/17/20 [Rx] Ibuprofen [Motrin] 200 mg PO Q6H PRN tablet 11/17/20 [Rx] LORazepam [Ativan] 0.5 mg PO Q12H PRN tablet 11/17/20 [Rx] Lactulose 10 gm PO BID PRN 10 Days #1 bottle 11/17/20 [Rx] Multivitamins [Tab-A-Pedro] 1 tab PO DAILY tablet 11/17/20 [Rx] oxyCODONE 5 mg PO Q4H PRN 4 Days #24 tablet 11/17/20 [Rx] Departure - Departure Time of Disposition: 22:01 Disposition: DC/Tfer to Acute Hospital 02 Preliminary Cause of *Q: Cardiac Arrest Condition: Fair Clinical Impression: Abdominal pain - Discharge Information Referrals: Amber Goldsmith NECK SKEWER [Primary Care Provider] - Forms: ED Department Discharge - Assessment/Plan Plan: Pt received in sign out from Dr. Chacon at 1900. Labs with normal WBC, minimal hypernatremia likely reflects mild dehydration but requires not acute interventions. CT remains pending. Final dispo based on this result and response to therapy. 2011: On repeat assessment patient continues to report severe pain on exam she has significant tenderness in the periumbilical and bilateral lower quadrant areas. CT scan shows some trace ascites and findings consistent with acute pancreatitis. She has some stable inflammation of the ascending colon as well her appendix is also mildly dilated with some periappendiceal stranding. This raises the possibility of acute appendicitis. Though her white count is normal and she has a significant hx of abdominal pain and chronic pancreatitis. Given this concern for marcelina and her pain level I think she will again need admission. However, will discuss with general surgery as well given the CT findings and the lower abd tenderness. 2030: Pt discussed with Dr. Hylton. Given her liver failure history and appendicitis on CT recommends transfer to [place]. 2139: There was a delay due to another critical trauma patient in the ED. The patient remains stable though pain persists. Pt discussed with Dr. Crisostomo in [place]. Pt accepted for transfer. <Antony Chacon - Last Filed: 11/22/20 07:19> ED HPI GENERAL MEDICAL PROBLEM - History of Present Illness INITIAL COMMENTS - FREE TEXT/NARRATIVE: CHIEF COMPLAINT(S): Abdominal pain HISTORY OF PRESENT ILLNESS: This is a 35-year-old woman with a past medical history of alcoholic cirrhosis and history of chronic pancreatitis with recent admission who comes to the emergency department with a chief complaint of abdominal pain. The patient states that she was approximately discharged 1 week ago. She states that she was inpatient for approximately 3 days. She states that her pain is normally controlled with ibuprofen and was discharged with oxycodone which ended 2 days ago. She states that the pain worsened today. She states that it is different from prior located in her left lower quadrant however throughout her abdomen. She states that the pain is sharp and achy rated 11 out of 10. She states that she has some associated nausea but denies any vomiting. She denies any radiation of this pain. She states that the pain is exacerbated by eating. She states that nothing is making it better. She denies any hematemesis, bilious emesis, melena, hematochezia. She states that she does have a history of ascites but that is decreased and that she usually comes every week for a paracentesis. She states that her last bowel movement was this morning and she denies any constipation. She states that she takes lac tulose. She states that she has also had some decreased appetite and decreased p.o. intake secondary to the pain. She denies any fevers, chills, chest pain, shortness of breath. REVIEW OF SYSTEMS: Constitutional: Denies fever, chills. Eyes: Denies eye pain Ears, Nose, Mouth, & Throat: Denies earache Cardiovascular: Denies chest pain Respiratory: Denies shortness of breath Gastrointestinal: Positive for abdominal pain and nausea. Denies vomiting, diarrhea, hematochezia, hematemesis, bilious emesis, melena Genitourinary: Denies hematuria, dysuria, vaginal bleeding, vaginal discharge Skin:Denies a rash Neurological: Denies blurred vision Psychiatric: Denies depression PAST MEDICAL HISTORY: As per history of present illness and as reviewed below otherwise noncontributory. SURGICAL HISTORY: As per history of present illness and as reviewed below otherwise noncontributory. SOCIAL HISTORY: As per history of present illness and as reviewed below otherwise noncontributory. FAMILY HISTORY: As per history of present illness and as reviewed below otherwise noncontributory. EXAMINATION OF ORGAN SYSTEMS/BODY AREAS: Constitutional: Blood pressure, HR, RR, Temp General: Overall well-appearing woman who is in no acute distress Psychiatric: Appropriate mood and affect. Eyes: No scleral icterus or conjunctival erythema ENMT: Moist mucous membranes. No pharyngeal erythema Cardiovascular: Regular, rate, and rhythm. No gallops, murmurs, or rubs. Bilateral upper extremity pulses symmetric and intact. No peripheral edema. No JVD. Respiratory: Lungs clear to auscultation bilaterally. No wheezes, rales, or rhonchi. Gastrointestinal: Diffuse tenderness to palpation worse in the epigastric and left lower quadrant region. No rebound or guarding. Normal bowel sounds. Negative Zepeda's McBurney's. Genitourinary: No suprapubic tenderness no CVA tenderness Musculoskeletal: Normal range of motion. Skin: No lesions or abrasions. Neurological: Alert, GCS 15 MEDICAL DECISION MAKING AND COURSE IN THE ED WITH INTERPRETATION/REVIEW OF DIAGNOSTIC STUDIES: This is a 35-year-old woman with a past medical history of alcoholic cirrhosis and chronic pancreatitis who comes to the emergency department with diffuse abdominal pain worse in the epigastric and left lower quadrant region who has normal vital signs and is afebrile. At this time given that this is a different location for pain we will obtain a repeat CT to evaluate for any abnormality. I did review the patient's chart prior and it appears that there was some colonic thickening last time. This was new at that time. Will obtain labs including CBC, CMP, and lipase. Will obtain an hCG. We will provide the patient with 1 L of normal saline and provide the patient with 1 mg of IV Dilaudid and 4 mg of IV Zofran. We will place the patient on n.p.o. status. Laboratory: CBC reveals a macrocytic anemia with a hemoglobin of 10.5 and hematocrit of 32.7 with MCV of 106.9. Platelets are normal. This is mildly improved from prior. INR is normal. Lactic acid is 1.2. CMP reveals hyponatremia at 146, hypochloremia at 108, mild elevation in AST, lipase of 190 and hypoalbuminemia at 2.2. DISPOSITION: The patient is signed out to Dr. Dooley pending CT and reeval CONDITION: Fair PROCEDURES: None FINAL IMPRESSION(S)/DIAGNOSES: 1. Acute abdominal pain suspect acute on chronic pancreatitis Antony Chacon M.D. abd Pain Score (Numeric/FACES): 10 Past Medical History HEENT History: Reports: None Other HEENT History: Yellow sclera Cardiovascular History: Reports: None Respiratory History: Reports: Other (See Below) Other Respiratory History: Pluerisy Gastrointestinal History: Reports: Cirrhosis, Other (See Below) Other Gastrointestinal History: heartburn Genitourinary History: Reports: Other (See Below) Other Genitourinary History: yeast infection during [employer] History: Reports: Musculoskeletal History: Reports: Back Pain, Chronic Other Musculoskeletal History: hx herniated disc in lower back Neurological History: Reports: None Psychiatric History: Reports: Anxiety Insulin Pump Model and Bar Examiner: None Hematologic History: Reports: None Immunologic History: Reports: None Oncologic (Cancer) History: Reports: Cervix Dermatologic History: Reports: None - Infectious Disease History Infectious Disease History: Reports: Chicken Pox, Influenza, Novel Coronavirus - Past Surgical History Head Surgeries/Procedures: Reports: None HEENT Surgical History: Reports: Oral Surgery Other HEENT Surgeries/Procedures: teeth removed at 26 years of age wears dentures Respiratory Surgical History: Reports: None GI Surgical History: Reports: Other (See Below) Other GI Surgeries/Procedures: Weekly paracentesis in [place]-Radiology Dept Female Surgical History: Reports: None Musculoskeletal Surgical History: Reports: None Oncologic Surgical History: Reports: Other (See Below) Other Oncologic Surgeries/Procedures: LEEP Social & Family History - Family History Family Medical History: No Pertinent Family History HEENT: Reports: Cataract, Glaucoma, Impaired Vision Cardiac: Reports: CAD, High Cholesterol, Hypertension GI: Reports: Cholelithiasis, Hepatitis OBGYN: Reports: Endometriosis Musculoskeletal: Reports: Arthritis, Back pain, Chronic, Neck Pain, Chronic, Osteoarthritis, RA Neurological: Reports: Alzheimers Disease, Dementia, Parkinson's Psychiatric: Reports: ADD, ADHD, Anxiety, Depression, Emotional Problems, Learning Disability, Mood Swings, Panic Attack Endocrine/Metabolic: Reports: Diabetes, type II, Hyperthyroidism Oncologic: Reports: Leukemia - Caffeine Use Caffeine Use: Reports: None ED ROS GENERAL - Review of Systems Review Of Systems: See Below ED EXAM, GENERAL - Physical Exam Exam: See Below Course - Vital Signs Last Recorded V/S: Last Vital Signs Temp 36.2 C 11/21/20 23:48 Pulse 80 11/21/20 23:48 Resp 18 11/21/20 23:48 BP 95/60 11/21/20 23:48 Pulse Ox 100 11/21/20 23:48 - Orders/Labs/Meds Labs: Laboratory Tests 11/21/20 11/21/20 11/21/20 Range/Units 18:27 18:27 18:27 WBC 5.46 (4.0-11.0) K/uL RBC 3.06 L (4.30-5.90) M/uL Hgb 10.5 L (12.0-16.0) g/dL Hct 32.7 L (36.0-46.0) % MCV 106.9 H (80.0-98.0) fL MCH 34.3 H (27.0-32.0) pg MCHC 32.1 (31.0-37.0) g/dL RDW Std Deviation 53.7 (28.0-62.0) fl RDW Coeff of Blue 14 (11.0-15.0) % Plt Count 246 (150-400) K/uL MPV 10.40 (7.40-12.00) fL Neut % (Auto) 53.9 (48.0-80.0) % Lymph % (Auto) 26.9 (16.0-40.0) % [place] % (Auto) 11.2 (0.0-15.0) % Eos % (Auto) 6.4 (0.0-7.0) % Baso % (Auto) 1.6 H (0.0-1.5) % Neut # (Auto) 2.9 (1.4-5.7) K/uL Lymph # (Auto) 1.5 (0.6-2.4) K/uL [place] # (Auto) 0.6 (0.0-0.8) K/uL Eos # (Auto) 0.4 (0.0-0.7) K/uL Baso # (Auto) 0.1 (0.0-0.1) K/uL Nucleated RBC % 0.0 /100WBC Nucleated RBCs # 0 K/uL INR 1.00 Lactate 1.2 (0.20-2.00) mmol/L Sodium (136-145) mmol/L Potassium (3.5-5.1) mmol/L Chloride (98-107) mmol/L Carbon Dioxide (21.0-32.0) mmol/L BUN (7.0-18.0) mg/dL Creatinine (0.6-1.0) mg/dL Est Cr Clr Drug Dosing mL/min Estimated GFR (MDRD) ml/min Glucose (74-106) mg/dL Calcium (8.5-10.1) mg/dL Total Bilirubin (0.2-1.0) mg/dL AST (15-37) IU/L ALT (14-63) IU/L Alkaline Phosphatase (46-116) U/L Total Protein (6.4-8.2) g/dL Albumin (3.4-5.0) g/dL Globulin (2.6-4.0) g/dL Albumin/Globulin Ratio (0.9-1.6) Lipase (73-393) U/L HCG, Qual (NEG) SARS-CoV-2 RNA (TORITO) (NEGATIVE) 11/21/20 11/21/20 11/21/20 Range/Units 18:27 18:27 20:34 WBC (4.0-11.0) K/uL RBC (4.30-5.90) M/uL Hgb (12.0-16.0) g/dL Hct (36.0-46.0) % MCV (80.0-98.0) fL MCH (27.0-32.0) pg MCHC (31.0-37.0) g/dL RDW Std Deviation (28.0-62.0) fl RDW Coeff of Blue (11.0-15.0) % Plt Count (150-400) K/uL MPV (7.40-12.00) fL Neut % (Auto) (48.0-80.0) % Lymph % (Auto) (16.0-40.0) % [place] % (Auto) (0.0-15.0) % Eos % (Auto) (0.0-7.0) % Baso % (Auto) (0.0-1.5) % Neut # (Auto) (1.4-5.7) K/uL Lymph # (Auto) (0.6-2.4) K/uL [place] # (Auto) (0.0-0.8) K/uL Eos # (Auto) (0.0-0.7) K/uL Baso # (Auto) (0.0-0.1) K/uL Nucleated RBC % /100WBC Nucleated RBCs # K/uL INR Lactate (0.20-2.00) mmol/L Sodium 146 H (136-145) mmol/L Potassium 3.7 (3.5-5.1) mmol/L Chloride 108 H (98-107) mmol/L Carbon Dioxide 28.1 (21.0-32.0) mmol/L BUN 4 L (7.0-18.0) mg/dL Creatinine 0.6 (0.6-1.0) mg/dL Est Cr Clr Drug Dosing 100.24 mL/min Estimated GFR (MDRD) > 60.0 ml/min Glucose 77 (74-106) mg/dL Calcium 8.9 (8.5-10.1) mg/dL Total Bilirubin 0.5 (0.2-1.0) mg/dL AST 58 H (15-37) IU/L ALT 35 (14-63) IU/L Alkaline Phosphatase 90 (46-116) U/L Total Protein 6.4 (6.4-8.2) g/dL Albumin 2.2 L (3.4-5.0) g/dL Globulin 4.2 H (2.6-4.0) g/dL Albumin/Globulin Ratio 0.5 L (0.9-1.6) Lipase 190 (73-393) U/L HCG, Qual NEGATIVE (NEG) SARS-CoV-2 RNA ([place]IT[place]) NEGATIVE (NEGATIVE) Meds: Medications Discontinued Medications Generic Name Dose Route Start Last Admin Trade Name Tanvir PRN Reason Stop Dose Admin Hydromorphone HCl 1 mg 11/21/20 18:14 11/21/20 18:26 Dilaudid IVPUSH 11/21/20 18:15 1 mg ONETIME ONE Administration Hydromorphone HCl 1 mg 11/21/20 20:10 11/21/20 20:26 Dilaudid IVPUSH 11/21/20 20:11 1 mg ONETIME ONE Administration Sodium Chloride 1,000 mls @ 999 mls/hr 11/21/20 18:13 11/21/20 18:25 Normal Saline IV 11/21/20 19:13 999 mls/hr .BOLUS ONE Administration Ceftriaxone Sodium/Dextrose 1 50 mls @ 100 mls/hr 11/21/20 21:44 11/21/20 21:58 gm/ Premix IV 11/21/20 22:13 100 mls/hr ONETIME ONE Administration Metronidazole 500 mg/ Premix 100 mls @ 100 mls/hr 11/21/20 21:44 11/21/20 21:58 IV 11/21/20 22:43 100 mls/hr ONETIME ONE Administration Iopamidol 100 ml 11/21/20 19:21 11/21/20 19:21 Isovue Multipack-370 (76%) IVPUSH 11/21/20 19:22 100 ml ONETIME ONE Administration Lorazepam 1 mg 11/21/20 23:37 11/21/20 23:48 Ativan IVPUSH 11/21/20 23:38 1 mg ONETIME ONE Administration Ondansetron HCl 4 mg 11/21/20 18:14 11/21/20 18:26 Zofran IVPUSH 11/21/20 18:15 4 mg ONETIME ONE Administration Sepsis Event Note (ED) - Focused Exam Vital Signs: Vital Signs Temp Pulse Resp BP Pulse Ox 11/21/20 23:48 36.2 C 80 18 95/60 100 11/21/20 22:00 90 18 103/67 100 11/21/20 21:37 72 20 94/64 95
[2020-11-21 18:54] LABS: BLOOD UREA NITROGEN,BUN 4 mg/dL (7.0-18.0); CARBON DIOXIDE,CO2 28.1 mmol/L (21.0-32.0); CHLORIDE,CL 108 mmol/L (98-107); GLUCOSE RANDOM 77 mg/dL (74-106); LIPASE 190 U/L (73-393); POTASSIUM,K 3.7 mmol/L (3.5-5.1); SODIUM,NA 146 mmol/L (136-145)
[2020-11-21] MEDS ORDERED: Iopamidol 755 MG/ML 500 ML Multipack Bottle IVPUSH ONE (19:21)
--- NOTE | 2020-11-21 19:54 | CT ---
INDICATION: Left lower quadrant pain, history of pancreatitis TECHNIQUE: CT abdomen and pelvis acquired with 100 cc Isovue 370 IV contrast. COMPARISON: November 15, 2020 FINDINGS: Lower chest: Unremarkable. Liver: Hepatic steatosis. Mildly nodular hepatic contour. Spleen: Unremarkable. Pancreas: Mild fat stranding around the pancreas Gallbladder and bile ducts: Unremarkable. Adrenal glands: Unremarkable. Kidneys: Unremarkable. GI tract: Large amount of feces in the colon. The appendix measures 6.3 mm in diameter. There is some fat stranding around the appendix. There is also some wall thickening of the ascending colon. Small amount of ascites. There is some fat stranding around the duodenum. The duodenal stanley appear mildly edematous. No extraluminal air. Vascular structures: Unremarkable. Lymph nodes: Unremarkable. Miscellaneous: Unremarkable. No free air or significant free fluid. Pelvic Organs: Although incompletely distended, the urinary bladder wall appears diffusely thickened. Bones: Unremarkable for age. IMPRESSION: Peripancreatic fat stranding concerning for acute pancreatitis. Correlate with lipase. No peripancreatic fluid collection. Mild wall thickening of the duodenum is likely reactive. Mild wall thickening of the urinary bladder could be due to infection or underdistention. Correlate with urinalysis. The appendix is mildly dilated with some periappendiceal fat stranding. Acute appendicitis cannot be excluded. Persistent wall thickening of the ascending colon may represent colitis. Small amount of ascites, decreased compared to the prior study. Hepatic steatosis. Nodular hepatic contour consistent with history of cirrhosis. Findings discussed with Dr. Dooley at 7:50 p.m. on November 21, 2020. Please note that all CT scans at this facility use dose modulation, iterative reconstruction, and/or weight-based dosing when appropriate to reduce radiation dose to as low as reasonably achievable. Dictated by Paulina Mccann MD @ Nov 21 2020 7:52PM Signed by Dr. Paulina Mccann @ Nov 21 2020 7:52PM
[2020-11-21] MEDS ORDERED: cefTRIAXone 1 GM in Premix Bag 1 BAG IV ONE (21:44)
[2020-11-21] MEDS ORDERED: metroNIDAZOLE/Normal Saline 500 MG in Premix Bag 1 BAG IV ONE (21:44)
[2020-11-21] MEDS ORDERED: LORazepam 2 MG/ML SDV IVPUSH ONE (23:37)
== END 2020-11-22 00:03 ==
LOC: MW.ED 17:43
DX: R10.33 Periumbilical pain (principal); R10.32 Left lower quadrant pain; R10.31 Right lower quadrant pain; R10.13 Epigastric pain; Z20.822 Contact with and (suspected) exposure to COVID-19; Z88.5 Allergy status to narcotic agent; Z79.899 Other long term (current) drug therapy
CPT/HCPCS: 36415; 74177; 80053; 83605; 83690; 84703; 85025; 85610; 87635; 96365; 96368; 96375; 96376; 99285; J0696; J1170; J2060; J2405; J3490; J7030; Q9967; U0002

== ENCOUNTER 2020-12-10 13:44 | Emergency (ER) | payer BC ==
[2020-12-10] MEDS ORDERED: Sodium Chloride 0.9% 2.5 ML Syringe FLUSH PRN (13:49)
[2020-12-10] MEDS ORDERED: Sodium Chloride 0.9% 10 ML Syringe FLUSH PRN (13:49)
--- NOTE | 2020-12-10 14:03 | EDM.PDOC ---
ED HPI GENERAL MEDICAL PROBLEM - General Chief Complaint: Abdominal Pain Stated Complaint: PANCREATITIS FLAIRE UP Time Seen by Provider: 12/10/20 13:46 Source of Information: Reports: Patient History Limitations: Reports: No Limitations - History of Present Illness INITIAL COMMENTS - FREE TEXT/NARRATIVE: HISTORY AND PHYSICAL: History of present illness: Patient is a 35-year-old female who presents to the emergency room with complaints of left-sided abdominal pain. Patient has a past medical history of alcohol abuse leading to cirrhosis requiring weekly paracentesis. Patient has been seen and evaluated for her abdominal ascites, alcoholic hepatitis, and pancreatitis multiple times through our emergency room -often requiring admission. 2 weeks ago the patient was seen in our emergency room and CT scan revealed some stranding of the appendix along with her pancreatitis and she was therefore transferred to [facility] in [facility] for further evaluation. She states she stayed in the hospital for 3 days receiving IV antibiotics but her appendix "calm down" and did not require appendectomy. She states since her discharge she has had her "normal abdominal pain" that she deals with on a routine basis. 3 days ago while driving she felt intense pain to her left abdomen which she describes as a sharp burning sensation. Since then she has had steady pain and tenderness. Patient denies any fever, chills, headache, change in vision, syncope or near syncope. Denies any chest pain, back pain, shortness of breath or cough. Denies any nausea, vomiting, diarrhea, constipation or dysuria. Has not noted any blood in urine or stool. Patient has been eating and drinking appropriately. Patient does see a communications instructor at [facility] in [place] and has seen/consulted with specialist at [facility]. States she has an appointment monthly with them (x 3 months) and then will come up with a game plan. She states she is frustrated because her labs/evaluation through [facility] "has been good... so they likely will just have me follow up with my primary care provider for this". Voices her frustration of this acute on chronic abdominal pain leaves her in the hospital every few weeks. Review of systems: As per history of present illness and below otherwise all systems reviewed and negative. Past medical history: As per history of present illness and as reviewed below otherwise noncontributory. Surgical history: As per history of present illness and as reviewed below otherwise noncontributory. Social history: See social history for further information Family history: As per history of present illness and as reviewed below otherwise noncontributory. Physical exam: General: Well developed and well nourished 35 year old female. Alert and orientated x 3. Nontoxic in appearance and in no acute distress. Vital signs are stable and have been reviewed by me. Nursing notes were reviewed. HEENT: Atraumatic, normocephalic, pupils equal and reactive bilaterally, negative for conjunctival pallor or scleral icterus, mucous membranes moist, TMs normal bilaterally, throat clear, neck supple, nontender, trachea midline. No drooling or trismus noted. No meningeal signs. No hot potato voice noted. Lungs: Clear to auscultation bilaterally. No wheezes, rales, or rhonchi. Chest nontender. Normal work of breathing, no accessory muscles used. Heart: S1S2, regular rate and rhythm without overt murmur, gallops, or rubs. No JVD. No peripheral edema Abdomen: Soft, nondistended, diffuse left mid abdominal tenderness. No noted ascites. Normoactive bowel sounds. Negative for masses or costovertebral tenderness. Skin: Intact, warm, dry. No lesions or rashes noted. Hematologic: No petechiae or purpra. Mucosa appropriate color and normal nail bed color and refill. Extremities: Atraumatic, moves all extremities per self without difficulty or deficits, negative for cords or calf pain. Neurovascular unremarkable. Neuro: Awake, alert, oriented. Cranial nerves II through XII unremarkable. Cerebellum unremarkable. Motor and sensory unremarkable throughout. Exam nonfocal. Psychiatric: Mood and affect are appropriate. Normal thought process. Answering questions appropriately. Notes: *This patient was seen and evaluated during the 2019 SARS-CoV-2 novel coronavirus pandemic period. Community viral transmission is ongoing at time of this encounter and the emergency department is operating under pandemic response procedures. No acutely abnormal labs are noted today. At this time I do not see a need for imaging, as this is not new or unusual pain. VSS. She feels improved after receiving fluids and medications. I have talked with the patient about today's findings, in addition to providing specific details for plan of care. Patient is requesting to be discharged to home, does not desire admission today. Patient recently had her oxycodone filled less than 10 days ago. Will prescribe additional narcotics to this patient. She appears nontoxic and has been drinking fluids without any vomiting or nausea. Reassessment at the time of disposition demonstrates that the patient is in no acute distress. The patient is stable for discharge, counseling was provided and we discussed in great detail signs and symptoms that would prompt them to return to the Emergency Department. Medication, follow up and supportive care measures were reviewed and discussed. Voices understanding and is agreeable to plan of care. Denies any further questions or concerns at this time. Diagnostics: CBC, CMP, Lipase, UA, HCGU Therapeutics: Normal Saline, Zofran, Dilaudid Prescription: None Impression: Abdominal Pain Plan: 1. No significant findings were noted on your lab work today. If your symptoms should worsen, new symptoms develop or any of the signs and symptoms we discussed should arise please return to the emergency room or call 911 (if needed). 2. You can alternate Tylenol and ibuprofen as needed for pain and fever management. Your chronic pain medications should be filled/managed by your primary care provider or specialist at [facility]. 3. We encourage you to follow up with your primary care provider and/or recommended specialist in the next few days for re-evaluation and further care/management. Definitive disposition and diagnosis as appropriate pending reevaluation and review of above. abd Pain Score (Numeric/FACES): 7 - Related Data Allergies Allergy/AdvReac Type Severity Reaction Status Date / Time codeine Allergy Mild Nausea and Verified 12/10/20 14:32 Vomiting Home Meds: Home Meds Furosemide [Lasix] 20 mg PO DAILY tablet 11/17/20 [Rx] Lactulose 10 gm PO BID PRN 10 Days #1 bottle 11/17/20 [Rx] LORazepam [Ativan] 0.5 mg PO BID PRN 12/10/20 [History] Spironolactone [Aldactone] 50 mg PO DAILY 12/10/20 [History] oxyCODONE 5 mg PO DAILY PRN 12/10/20 [History] Past Medical History HEENT History: Reports: None Other HEENT History: Yellow sclera Cardiovascular History: Reports: None Respiratory History: Reports: Other (See Below) Other Respiratory History: Pluerisy Gastrointestinal History: Reports: Cirrhosis, Other (See Below) Other Gastrointestinal History: heartburn Genitourinary History: Reports: Other (See Below) Other Genitourinary History: yeast infection during [employer] History: Reports: Musculoskeletal History: Reports: Back Pain, Chronic Other Musculoskeletal History: hx herniated disc in lower back Neurological History: Reports: None Psychiatric History: Reports: Anxiety Insulin Pump Model and Adzing And Boring Machine Feeder: None Hematologic History: Reports: None Immunologic History: Reports: None Oncologic (Cancer) History: Reports: Cervix Dermatologic History: Reports: None - Infectious Disease History Infectious Disease History: Reports: Chicken Pox, Influenza, Novel Coronavirus - Past Surgical History Head Surgeries/Procedures: Reports: None HEENT Surgical History: Reports: Oral Surgery Other HEENT Surgeries/Procedures: teeth removed at 26 years of age wears dentures Respiratory Surgical History: Reports: None GI Surgical History: Reports: Other (See Below) Other GI Surgeries/Procedures: 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 Female Surgical History: Reports: None Musculoskeletal Surgical History: Reports: None Oncologic Surgical History: Reports: Other (See Below) Other Oncologic Surgeries/Procedures: LEEP Social & Family History - Family History Family Medical History: No Pertinent Family History HEENT: Reports: Cataract, Glaucoma, Impaired Vision Cardiac: Reports: CAD, High Cholesterol, Hypertension GI: Reports: Cholelithiasis, Hepatitis OBGYN: Reports: Endometriosis Musculoskeletal: Reports: Arthritis, Back pain, Chronic, Neck Pain, Chronic, Osteoarthritis, RA Neurological: Reports: Alzheimers Disease, Dementia, Parkinson's Psychiatric: Reports: ADD, ADHD, Anxiety, Depression, Emotional Problems, Le arning Disability, Mood Swings, Panic Attack Endocrine/Metabolic: Reports: Diabetes, type II, Hyperthyroidism Oncologic: Reports: Leukemia - Caffeine Use Caffeine Use: Reports: None ED ROS GENERAL - Review of Systems Review Of Systems: Comprehensive ROS is negative, except as noted in HPI. ED EXAM, RENAL/ - Physical Exam Exam: See Below (See dictation) Course - Vital Signs Last Recorded V/S: Last Vital Signs Temp 97.7 F 12/10/20 14:15 Pulse 83 12/10/20 16:47 Resp 16 12/10/20 14:15 BP 92/59 L 12/10/20 16:47 Pulse Ox 98 12/10/20 16:47 - Orders/Labs/Meds Orders: Active Orders 24 hr Category Date Time Status Sodium Chloride 0.9% [Saline Flush] Med 12/10/20 13:49 Active 10 ml FLUSH ASDIRECTED PRN Sodium Chloride 0.9% [Saline Flush] Med 12/10/20 13:49 Active 2.5 ml FLUSH ASDIRECTED PRN Saline Lock Insert [OM.PC] Stat Oth 12/10/20 13:49 Ordered Medication Orders Sodium Chloride (Saline Flush) 10 ml FLUSH ASDIRECTED PRN PRN Reason: Keep Vein Open Last Admin: 12/10/20 15:11 Dose: 10 ml Documented by: KAYLI Sodium Chloride (Saline Flush) 2.5 ml FLUSH ASDIRECTED PRN PRN Reason: Keep Vein Open Last Admin: 12/10/20 15:11 Dose: 2.5 ml Documented by: KAYLI Labs: Laboratory Tests 12/10/20 12/10/20 12/10/20 Range/Units 15:08 15:08 15:08 WBC 6.60 (4.0-11.0) K/uL RBC 3.47 L (4.30-5.90) M/uL Hgb 11.5 L (12.0-16.0) g/dL Hct 35.1 L (36.0-46.0) % MCV 101.2 H (80.0-98.0) fL MCH 33.1 H (27.0-32.0) pg MCHC 32.8 (31.0-37.0) g/dL RDW Std Deviation 51.3 (28.0-62.0) fl RDW Coeff of Blue 14 (11.0-15.0) % Plt Count 221 (150-400) K/uL MPV 10.80 (7.40-12.00) fL Neut % (Auto) 67.2 (48.0-80.0) % Lymph % (Auto) 23.6 (16.0-40.0) % Pickett % (Auto) 5.9 (0.0-15.0) % Eos % (Auto) 2.7 (0.0-7.0) % Baso % (Auto) 0.6 (0.0-1.5) % Neut # (Auto) 4.4 (1.4-5.7) K/uL Lymph # (Auto) 1.6 (0.6-2.4) K/uL Pickett # (Auto) 0.4 (0.0-0.8) K/uL Eos # (Auto) 0.2 (0.0-0.7) K/uL Baso # (Auto) 0.0 (0.0-0.1) K/uL Nucleated RBC % 0.0 /100WBC Nucleated RBCs # 0 K/uL Lactate 1.7 (0.20-2.00) mmol/L Sodium 141 (136-145) mmol/L Potassium 3.7 (3.5-5.1) mmol/L Chloride 104 (98-107) mmol/L Carbon Dioxide 28.2 (21.0-32.0) mmol/L BUN 7 (7.0-18.0) mg/dL Creatinine 0.7 (0.6-1.0) mg/dL Est Cr Clr Drug Dosing 76.53 mL/min Estimated GFR (MDRD) > 60.0 ml/min Glucose 79 (74-106) mg/dL Calcium 8.6 (8.5-10.1) mg/dL Total Bilirubin 0.5 (0.2-1.0) mg/dL AST 23 (15-37) IU/L ALT 21 (14-63) IU/L Alkaline Phosphatase 80 (46-116) U/L Total Protein 6.9 (6.4-8.2) g/dL Albumin 2.5 L (3.4-5.0) g/dL Globulin 4.4 H (2.6-4.0) g/dL Albumin/Globulin Ratio 0.6 L (0.9-1.6) Lipase 333 (73-393) U/L Urine Color Urine Appearance Urine pH (5.0-8.0) Ur Specific Perryman (1.001-1.035) Urine Protein (NEGATIVE) mg/dL Urine Glucose (UA) (NEGATIVE) mg/dL Urine Ketones (NEGATIVE) mg/dL Urine Occult Blood (NEGATIVE) Urine Nitrite (NEGATIVE) Urine Bilirubin (NEGATIVE) Urine Urobilinogen (<2.0) EU/dL Ur Leukocyte Esterase (NEGATIVE) Urine RBC (0-2/HPF) Urine WBC (0-5/HPF) Ur Epithelial Cells (NONE-FEW) Calcium Oxalate Crystal (NEGATIVE) Urine Bacteria (NEGATIVE) 12/10/20 Range/Units 18:09 WBC (4.0-11.0) K/uL RBC (4.30-5.90) M/uL Hgb (12.0-16.0) g/dL Hct (36.0-46.0) % MCV (80.0-98.0) fL MCH (27.0-32.0) pg MCHC (31.0-37.0) g/dL RDW Std Deviation (28.0-62.0) fl RDW Coeff of Blue (11.0-15.0) % Plt Count (150-400) K/uL MPV (7.40-12.00) fL Neut % (Auto) (48.0-80.0) % Lymph % (Auto) (16.0-40.0) % Pickett % (Auto) (0.0-15.0) % Eos % (Auto) (0.0-7.0) % Baso % (Auto) (0.0-1.5) % Neut # (Auto) (1.4-5.7) K/uL Lymph # (Auto) (0.6-2.4) K/uL Pickett # (Auto) (0.0-0.8) K/uL Eos # (Auto) (0.0-0.7) K/uL Baso # (Auto) (0.0-0.1) K/uL Nucleated RBC % /100WBC Nucleated RBCs # K/uL Lactate (0.20-2.00) mmol/L Sodium (136-145) mmol/L Potassium (3.5-5.1) mmol/L Chloride (98-107) mmol/L Carbon Dioxide (21.0-32.0) mmol/L BUN (7.0-18.0) mg/dL Creatinine (0.6-1.0) mg/dL Est Cr Clr Drug Dosing mL/min Estimated GFR (MDRD) ml/min Glucose (74-106) mg/dL Calcium (8.5-10.1) mg/dL Total Bilirubin (0.2-1.0) mg/dL AST (15-37) IU/L ALT (14-63) IU/L Alkaline Phosphatase (46-116) U/L Total Protein (6.4-8.2) g/dL Albumin (3.4-5.0) g/dL Globulin (2.6-4.0) g/dL Albumin/Globulin Ratio (0.9-1.6) Lipase (73-393) U/L Urine Color YELLOW Urine Appearance CLEAR Urine pH 5.5 (5.0-8.0) Ur Specific Perryman >= 1.030 (1.001-1.035) Urine Protein NEGATIVE (NEGATIVE) mg/dL Urine Glucose (UA) NEGATIVE (NEGATIVE) mg/dL Urine Ketones NEGATIVE (NEGATIVE) mg/dL Urine Occult Blood SMALL H (NEGATIVE) Urine Nitrite NEGATIVE (NEGATIVE) Urine Bilirubin NEGATIVE (NEGATIVE) Urine Urobilinogen 1.0 (<2.0) EU/dL Ur Leukocyte Esterase NEGATIVE (NEGATIVE) Urine RBC 3-5 (0-2/HPF) Urine WBC 0-1 (0-5/HPF) Ur Epithelial Cells RARE (NONE-FEW) Calcium Oxalate Crystal MODERATE (NEGATIVE) Urine Bacteria RARE (NEGATIVE) Meds: Medications Generic Name Dose Route Start Last Admin Trade Name Freq PRN Reason Stop Dose Admin Sodium Chloride 10 ml 12/10/20 13:49 12/10/20 15:11 Saline Flush FLUSH 10 ml ASDIRECTED PRN Administration Keep Vein Open Sodium Chloride 2.5 ml 12/10/20 13:49 12/10/20 15:11 Saline Flush FLUSH 2.5 ml ASDIRECTED PRN Administration Keep Vein Open Discontinued Medications Generic Name Dose Route Start Last Admin Trade Name Freq PRN Reason Stop Dose Admin Hydromorphone HCl 1 mg 12/10/20 14:21 12/10/20 15:11 Dilaudid IVPUSH 12/10/20 14:22 1 mg ONETIME ONE Administration Sodium Chloride 1,000 mls @ 999 mls/hr 12/10/20 14:21 12/10/20 15:10 Normal Saline IV 12/10/20 15:21 999 mls/hr STAT ONE Administration Sodium Chloride 1,000 mls @ 999 mls/hr 12/10/20 17:02 12/10/20 17:12 Normal Saline IV 12/10/20 18:02 999 mls/hr STAT ONE Administration Sodium Chloride 1,000 mls @ 999 mls/hr 12/10/20 17:22 12/10/20 17:43 Normal Saline IV 12/10/20 18:22 Not Given STAT ONE Ketorolac Tromethamine 30 mg 12/10/20 17:22 12/10/20 17:43 Toradol IVPUSH 12/10/20 17:23 30 mg ONETIME ONE Administration Ondansetron HCl 4 mg 12/10/20 14:21 12/10/20 15:11 Zofran IVPUSH 12/10/20 14:22 4 mg ONETIME ONE Administration Departure - Departure Time of Disposition: 18:30 Disposition: Home, Self-Care 01 Clinical Impression: Abdominal pain Qualifiers: Abdominal location: left upper quadrant Qualified Code(s): R10.12 - Left upper quadrant pain - Discharge Information Instructions: Abdominal Pain, Adult, [id number] Referrals: Amber Goldsmith [employer] [Primary Care Provider] - Forms: ED Department Discharge Additional Instructions: The following information is given to patients seen in the emergency department who are being discharged to home. This information is to outline your options for follow-up care. We provide all patients seen in our emergency department with a follow-up referral. The need for follow-up, as well as the timing and circumstances, are variable depending upon the specifics of your emergency department visit. If you don't have a primary care physician on staff, we will provide you with a referral. We always advise you to contact your personal physician following an emergency department visit to inform them of the circumstance of the visit and for follow-up with them and/or the need for any referrals to a consulting specialist. The emergency department will also refer you to a specialist when appropriate. This referral assures that you have the opportunity for follow-up care with a specialist. All of these measure are taken in an effort to provide you with optimal care, which includes your follow-up. Under all circumstances we always encourage you to contact your private physician who remains a resource for coordinating your care. When calling for follow-up care, please make the office aware that this follow-up is from your recent emergency room visit. If for any reason you are refused follow-up, please contact the [facility] at and asked to speak to the emergency department charge nurse. [facility] [address] [place] [id number] [address] Thank you for choosing the [facility] emergency department in [facility] for your medical needs today. It was a pleasure caring for you. Today you were seen in the emergency department for abdominal pain. 1. No significant findings were noted on your lab work today. If your symptoms should worsen, new symptoms develop or any of the signs and symptoms we discussed should arise please return to the emergency room or call 911 (if needed). 2. You can alternate Tylenol and ibuprofen as needed for pain and fever management. Your chronic pain medications should be filled/managed by your primary care provider or specialist at [facility]. 3. We encourage you to follow up with your primary care provider and/or recommended specialist in the next few days for re-evaluation and further care/management. Sepsis Event Note (ED) - Focused Exam Vital Signs: Vital Signs Temp Pulse Resp BP Pulse Ox 12/10/20 16:47 83 92/59 L 98 12/10/20 16:17 78 89/51 L 99 12/10/20 15:47 76 96/62 99 12/10/20 15:17 90 108/78 100 12/10/20 14:15 97.7 F 122 H 16 108/58 L 98 - My Orders Last 24 Hours: My Active Orders 12/10/20 13:49 Sodium Chloride 0.9% [Saline Flush] 10 ml FLUSH ASDIRECTED PRN Sodium Chloride 0.9% [Saline Flush] 2.5 ml FLUSH ASDIRECTED PRN Saline Lock Insert [OM.PC] Stat - Assessment/Plan Last 24 Hours: My Active Orders 12/10/20 13:49 Sodium Chloride 0.9% [Saline Flush] 10 ml FLUSH ASDIRECTED PRN Sodium Chloride 0.9% [Saline Flush] 2.5 ml FLUSH ASDIRECTED PRN Saline Lock Insert [OM.PC] Stat
[2020-12-10] MEDS ORDERED: Ondansetron 4 MG/2 ML SDV IVPUSH ONE (14:21)
[2020-12-10] MEDS ORDERED: Sodium Chloride 0.9% 1,000 ML IV ONE ×3 (14:21→17:22)
[2020-12-10] MEDS ORDERED: HYDROmorphone 1 MG/ML Syringe IVPUSH ONE (14:21)
[2020-12-10 15:41] LABS: BLOOD UREA NITROGEN,BUN 7 mg/dL (7.0-18.0); CARBON DIOXIDE,CO2 28.2 mmol/L (21.0-32.0); CHLORIDE,CL 104 mmol/L (98-107); GLUCOSE RANDOM 79 mg/dL (74-106); LIPASE 333 U/L (73-393); POTASSIUM,K 3.7 mmol/L (3.5-5.1); SODIUM,NA 141 mmol/L (136-145)
[2020-12-10] MEDS ORDERED: Ketorolac 30 MG/ML SDV IVPUSH ONE (17:22)
== END 2020-12-10 18:41 | disposition home or self-care (01) ==
LOC: MW.ED 13:44
DX: R10.12 Left upper quadrant pain (principal); Z88.5 Allergy status to narcotic agent
CPT/HCPCS: 36415; 80053; 81001; 83605; 83690; 85025; 96374; 96375; 99284; J1170; J1885; J2405; J7030; 99283

== ENCOUNTER 2020-12-21 19:16 | Emergency (ER) | payer BC ==
[2020-12-21] MEDS ORDERED: Sodium Chloride 0.9% 10 ML Syringe FLUSH PRN (19:38)
[2020-12-21] MEDS ORDERED: Sodium Chloride 0.9% 1,000 ML IV ONE (19:38)
[2020-12-21] MEDS ORDERED: Sodium Chloride 0.9% 2.5 ML Syringe FLUSH PRN (19:38)
[2020-12-21] MEDS ORDERED: Pantoprazole 40 MG in Sodium Chloride 0.9% 10 ML IV ONE (19:38)
[2020-12-21] MEDS ORDERED: fentaNYL 50 MCG/ML SDV IVPUSH ONE (19:38)
[2020-12-21 20:04] LABS: BLOOD UREA NITROGEN,BUN 5 mg/dL (7.0-18.0); CARBON DIOXIDE,CO2 26.5 mmol/L (21.0-32.0); CHLORIDE,CL 105 mmol/L (98-107); GLUCOSE RANDOM 93 mg/dL (74-106); LIPASE 191 U/L (73-393); POTASSIUM,K 3.1 mmol/L (3.5-5.1); SODIUM,NA 142 mmol/L (136-145)
[2020-12-21] MEDS ORDERED: Ondansetron 4 MG/2 ML SDV IVPUSH ONE (20:24)
[2020-12-21] MEDS ORDERED: HYDROmorphone 1 MG/ML Syringe IVPUSH ONE (20:39)
--- NOTE | 2020-12-21 21:16 | EDM.PDOC ---
ED HPI GENERAL MEDICAL PROBLEM - General Chief Complaint: Abdominal Pain Stated Complaint: VOMITING Time Seen by Provider: 12/21/20 19:28 - History of Present Illness INITIAL COMMENTS - FREE TEXT/NARRATIVE: HISTORY AND PHYSICAL: History of present illness: This is a 35-year-old female with a history significant for cirrhosis presumed secondary to alcohol use disorder who presents ER today secondary to episode of coffee-ground emesis and abdominal pain. Patient reports that she has been diagnosed with cirrhosis and is currently being followed in [place] for possible liver transplant. She reports during her evaluation they told her that at this time her liver is not bad enough to require transplant and that if she would continue with abstinence from alcohol and eat appropriately that there is a good chance that her liver would regenerate and that she would not need a transplant. Patient reports that her last alcoholic beverage was in September 2020. Patient denies any history of diabetes, kidney problems, lung problems, heart problems, strokes, stomach ulcers. Patient denies any abdominal or chest surgeries in the past. Patient reports an allergy to codeine which causes nausea. Patient denies any drug use. Patient reports that earlier today she started feeling nauseous and having abdominal discomfort. She reports that she has had decreased p.o. intake over the last 1 to 2 days but has been tolerating some liquids and solids. Patient reports that after feeling nauseous she went to vomit and noticed that it was a significant amount of emesis that looked like dark coffee so she came to the ED. Patient reports that she is never had stomach ulcers or coffee-ground emesis in the past. Patient denies any history of esophageal varices in the past. Patient reports she is not on beta-marleny and has not been recommended for a beta-marleny in the past. Patient denies any recent fevers, shakes, chills, diarrhea, dysuria, frequency, urgency, chest pain, shortness of breath. Patient reports that the pain is greatest in the left upper and left lower quadrant region. Patient reports that she has not required blood transfusion in the past. Patient denies any melena or bright red blood per rectum. Patient denies hematemesis. Review of systems: As per history of present illness and below otherwise all systems reviewed and negative. Past medical history: As per history of present illness and as reviewed below otherwise noncontributory. Surgical history: As per history of present illness and as reviewed below otherwise noncontributory. Social history: No reported history of drug or alcohol abuse. Family history: As per history of present illness and as reviewed below otherwise noncontributory. Physical exam: This patient was seen and evaluated during the 2019 SARS-CoV-2 novel coronavirus pandemic period. Community viral transmission is ongoing at time of this encounter and the emergency department is operating under pandemic response procedures. Constitutional: Patient is oriented to person, place, and time. Appears well- developed and well-nourished. No distress. HEENT: Moist mucous membranes Head: Normocephalic and atraumatic Eyes: Right eye exhibits no discharge. Left eye exhibits no discharge. No scleral icterus Neck: Normal range of motion. No tracheal deviation present. Cardiovascular: Normal rate and regular rhythm. Pulmonary: Effort normal, no respiratory distress. Abd: Soft, nondistended, no rebound/guarding, no psoas or obturator signs, no tenderness at Mcberney's point, no Zepeda's sign. Pt does not present with an exam that would be consistent with an acute surgical abdomen at this time, diffuse mild tenderness to palpation throughout her abdomen with greatest pain in the left side. Mild tenderness palpation left upper and left lower quadrants diffuse. Musculoskeletal: Normal range of motion Neurologic: Alert and oriented to person, place and time. Skin: Reed, warm and dry. Psychiatric: Normal mood and affect. Behavior is normal. Judgment and thought content normal. Nursing note and vital signs have been reviewed Patient's ER physical exam significant for diffuse tenderness to palpation throughout her abdomen but greatest in the left upper and left lower quadrants. Patient is tachycardic with a heart rate of 115-120. Rectal exam: Heme-negative brown stool. (Patient currently on menses) Diagnostics: CBC, CMP, INR within normal limits. Patient's hemoglobin and platelet counts are at baseline. CT the abdomen pelvis without IV contrast reveals no acute pathology. Therapeutics: Fentanyl 50 mics IV x1, NSS x1 L, Dilaudid x1 mg IV, Zofran 4 mg IV Assessment and plan: This is a 35-year-old female with a history of alcohol related liver disease resulting in cirrhosis who presents ER today complaining of abdominal pain with coffee-ground emesis. Patient reports that she does take lactulose for elevated ammonia level in the past. Patient will have a CBC, CMP, INR, CT scan of the abdomen pelvis obtained. Patient has been given Protonix, Zofran, fentanyl, Dilaudid for pain. Patient be given NSS x1 L. Patient be reevaluated. 10 PM: Patient's been reevaluated by me multiple times throughout the ED visit. Patient currently has some mild discomfort to her left upper and left lower quadrant. Patient has received adequate analgesia in the ED. Patient's labs are all within normal limits. Patient CT scan of her abdomen pelvis did not reveal any acute pathology that require further inpatient evaluation. Patient's labs are at baseline for her without evidence of significant anemia with a heme- negative rectal exam. Patient's heart rate currently is ranging between 65bpm to 90 bpm. Given no significant anemia, heme-negative stool, normal CT scan of the abdomen pelvis, nonsurgical abdominal exam, normalization of her vital signs, I feel that the patient will be stable for discharged home with continued close outpatient follow-up with her primary care physician. Reassessment at the time of disposition demonstrates that the patient is in no acute distress. The patient has remained stable throughout the entire ED visit and is without objective evidence for acute process requiring urgent intervention or hospitalization. The patient is stable for discharge, counseling is provided as documented above, discussed symptomatic treatment and specific conditions for return. I have spoken with the patient/caregiver and discussed todays findings, in addition to providing specific details for the plan of care. Questions are answered and there is agreement with the plan. Definitive disposition and diagnosis as appropriate pending reevaluation and review of above. abdominal Pain Score (Numeric/FACES): 11 - Related Data Allergies Allergy/AdvReac Type Severity Reaction Status Date / Time codeine Allergy Mild Nausea and Verified 12/21/20 19:27 Vomiting Home Meds: Home Meds Furosemide [Lasix] 20 mg PO DAILY tablet 11/17/20 [Rx] Lactulose 10 gm PO BID PRN 10 Days #1 bottle 11/17/20 [Rx] LORazepam [Ativan] 0.5 mg PO BID PRN 12/10/20 [History] Spironolactone [Aldactone] 50 mg PO DAILY 12/10/20 [History] oxyCODONE 5 mg PO DAILY PRN 12/10/20 [History] Omeprazole Magnesium [Prilosec Otc] 20 mg PO BID #30 tablet. 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: Musculoskeletal History: Reports: Back Pain, Chronic Other Musculoskeletal History: hx herniated disc in lower back Neurological History: Reports: None Psychiatric History: Reports: Anxiety Insulin Pump Model and Per Diem Nurse: None Hematologic History: Reports: None Immunologic History: Reports: None Oncologic (Cancer) History: Reports: Cervix Dermatologic History: Reports: None - Infectious Disease History Infectious Disease History: Reports: Chicken Pox, Influenza, Novel Coronavirus - Past Surgical History Head Surgeries/Procedures: Reports: None HEENT Surgical History: Reports: Oral Surgery Other HEENT Surgeries/Procedures: teeth removed at 26 years of age wears dentures Respiratory Surgical History: Reports: None GI Surgical History: Reports: Other (See Below) Other GI Surgeries/Procedures: Weekly paracentesis in [place]-Radiology Dept Female Surgical History: Reports: None Musculoskeletal Surgical History: Reports: None Oncologic Surgical History: Reports: Other (See Below) Other Oncologic Surgeries/Procedures: LEEP Social & Family History - Family History Family Medical History: No Pertinent Family History HEENT: Reports: Cataract, Glaucoma, Impaired Vision Cardiac: Reports: CAD, High Cholesterol, Hypertension GI: Reports: Cholelithiasis, Hepatitis OBGYN: Reports: Endometriosis Musculoskeletal: Reports: Arthritis, Back pain, Chronic, Neck Pain, Chronic, Os teoarthritis, RA Neurological: Reports: Alzheimers Disease, Dementia, Parkinson's Psychiatric: Reports: ADD, ADHD, Anxiety, Depression, Emotional Problems, Learning Disability, Mood Swings, Panic Attack Endocrine/Metabolic: Reports: Diabetes, type II, Hyperthyroidism Oncologic: Reports: Leukemia - Tobacco Use Tobacco Use Status *Q: Never Tobacco User - Caffeine Use Caffeine Use: Reports: Soda - Recreational Drug Use Recreational Drug Use: No ED ROS GENERAL - Review of Systems Review Of Systems: See Below ED EXAM, GENERAL - Physical Exam Exam: See Below Course - Vital Signs Last Recorded V/S: Last Vital Signs Temp 98.1 F 12/21/20 19:27 Pulse 117 H 12/21/20 19:27 Resp 20 12/21/20 19:27 BP 103/63 12/21/20 19:27 Pulse Ox 100 12/21/20 19:27 - Orders/Labs/Meds Orders: Active Orders 24 hr Category Date Time Status Sodium Chloride 0.9% [Saline Flush] Med 12/21/20 19:38 Active 10 ml FLUSH ASDIRECTED PRN Sodium Chloride 0.9% [Saline Flush] Med 12/21/20 19:38 Active 2.5 ml FLUSH ASDIRECTED PRN Saline Lock Insert [OM.PC] Stat Oth 12/21/20 19:38 Ordered Medication Orders Sodium Chloride (Saline Flush) 10 ml FLUSH ASDIRECTED PRN PRN Reason: Keep Vein Open Last Admin: 12/21/20 19:51 Dose: 10 ml Documented by: GRACIA Sodium Chloride (Saline Flush) 2.5 ml FLUSH ASDIRECTED PRN PRN Reason: Keep Vein Open Last Admin: 12/21/20 19:51 Dose: 2.5 ml Documented by: GRACIA Labs: Laboratory Tests 12/21/20 12/21/20 12/21/20 Range/Units 19:32 19:32 19:32 WBC 4.91 (4.0-11.0) K/uL RBC 3.21 L (4.30-5.90) M/uL Hgb 10.4 L (12.0-16.0) g/dL Hct 31.7 L (36.0-46.0) % MCV 98.8 H (80.0-98.0) fL MCH 32.4 H (27.0-32.0) pg MCHC 32.8 (31.0-37.0) g/dL RDW Std Deviation 51.2 (28.0-62.0) fl RDW Coeff of Blue 14 (11.0-15.0) % Plt Count 228 (150-400) K/uL MPV 10.70 (7.40-12.00) fL Neut % (Auto) 64.8 (48.0-80.0) % Lymph % (Auto) 20.6 (16.0-40.0) % [place] % (Auto) 11.6 (0.0-15.0) % Eos % (Auto) 2.6 (0.0-7.0) % Baso % (Auto) 0.4 (0.0-1.5) % Neut # (Auto) 3.2 (1.4-5.7) K/uL Lymph # (Auto) 1.0 (0.6-2.4) K/uL [place] # (Auto) 0.6 (0.0-0.8) K/uL Eos # (Auto) 0.1 (0.0-0.7) K/uL Baso # (Auto) 0.0 (0.0-0.1) K/uL Nucleated RBC % 0.0 /100WBC Nucleated RBCs # 0 K/uL INR 1.05 APTT 26.1 (18.6-31.3) SEC Sodium 142 (136-145) mmol/L Potassium 3.1 L (3.5-5.1) mmol/L Chloride 105 (98-107) mmol/L Carbon Dioxide 26.5 (21.0-32.0) mmol/L BUN 5 L (7.0-18.0) mg/dL Creatinine 0.7 (0.6-1.0) mg/dL Est Cr Clr Drug Dosing 84.97 mL/min Estimated GFR (MDRD) > 60.0 ml/min Glucose 93 (74-106) mg/dL Calcium 8.2 L (8.5-10.1) mg/dL Magnesium 1.7 L (1.8-2.4) mg/dL Total Bilirubin 0.3 (0.2-1.0) mg/dL AST 26 (15-37) IU/L ALT 19 (14-63) IU/L Alkaline Phosphatase 70 (46-116) U/L Total Protein 6.4 (6.4-8.2) g/dL Albumin 2.5 L (3.4-5.0) g/dL Globulin 3.9 (2.6-4.0) g/dL Albumin/Globulin Ratio 0.6 L (0.9-1.6) Lipase 191 (73-393) U/L Urine Color Urine Appearance Urine pH (5.0-8.0) Ur Specific [place] (1.001-1.035) Urine Protein (NEGATIVE) mg/dL Urine Glucose (UA) (NEGATIVE) mg/dL Urine Ketones (NEGATIVE) mg/dL Urine Occult Blood (NEGATIVE) Urine Nitrite (NEGATIVE) Urine Bilirubin (NEGATIVE) Urine Urobilinogen (<2.0) EU/dL Ur Leukocyte Esterase (NEGATIVE) Urine RBC (0-2/HPF) Urine WBC (0-5/HPF) Ur Epithelial Cells (NONE-FEW) Urine Bacteria (NEGATIVE) Urine Mucus (NONE-MOD) Urine HCG, Qual (NEGATIVE) SARS-CoV-2 RNA ([place]IT[place]) (NEGATIVE) Blood Type Antibody Screen 12/21/20 12/21/20 12/21/20 Range/Units 19:45 19:45 20:01 WBC (4.0-11.0) K/uL RBC (4.30-5.90) M/uL Hgb (12.0-16.0) g/dL Hct (36.0-46.0) % MCV (80.0-98.0) fL MCH (27.0-32.0) pg MCHC (31.0-37.0) g/dL RDW Std Deviation (28.0-62.0) fl RDW Coeff of Blue (11.0-15.0) % Plt Count (150-400) K/uL MPV (7.40-12.00) fL Neut % (Auto) (48.0-80.0) % Lymph % (Auto) (16.0-40.0) % [place] % (Auto) (0.0-15.0) % Eos % (Auto) (0.0-7.0) % Baso % (Auto) (0.0-1.5) % Neut # (Auto) (1.4-5.7) K/uL Lymph # (Auto) (0.6-2.4) K/uL [place] # (Auto) (0.0-0.8) K/uL Eos # (Auto) (0.0-0.7) K/uL Baso # (Auto) (0.0-0.1) K/uL Nucleated RBC % /100WBC Nucleated RBCs # K/uL INR APTT (18.6-31.3) SEC Sodium (136-145) mmol/L Potassium (3.5-5.1) mmol/L Chloride (98-107) mmol/L Carbon Dioxide (21.0-32.0) mmol/L BUN (7.0-18.0) mg/dL Creatinine (0.6-1.0) mg/dL Est Cr Clr Drug Dosing mL/min Estimated GFR (MDRD) ml/min Glucose (74-106) mg/dL Calcium (8.5-10.1) mg/dL Magnesium (1.8-2.4) mg/dL Total Bilirubin (0.2-1.0) mg/dL AST (15-37) IU/L ALT (14-63) IU/L Alkaline Phosphatase (46-116) U/L Total Protein (6.4-8.2) g/dL Albumin (3.4-5.0) g/dL Globulin (2.6-4.0) g/dL Albumin/Globulin Ratio (0.9-1.6) Lipase (73-393) U/L Urine Color YELLOW Urine Appearance SLT CLOUDY Urine pH 6.5 (5.0-8.0) Ur Specific [place] 1.020 (1.001-1.035) Urine Protein NEGATIVE (NEGATIVE) mg/dL Urine Glucose (UA) NEGATIVE (NEGATIVE) mg/dL Urine Ketones NEGATIVE (NEGATIVE) mg/dL Urine Occult Blood MODERATE H (NEGATIVE) Urine Nitrite NEGATIVE (NEGATIVE) Urine Bilirubin NEGATIVE (NEGATIVE) Urine Urobilinogen 1.0 (<2.0) EU/dL Ur Leukocyte Esterase NEGATIVE (NEGATIVE) Urine RBC 0-2 (0-2/HPF) Urine WBC 0-2 (0-5/HPF) Ur Epithelial Cells MODERATE (NONE-FEW) Urine Bacteria FEW (NEGATIVE) Urine Mucus MODERATE (NONE-MOD) Urine HCG, Qual NEGATIVE (NEGATIVE) SARS-CoV-2 RNA ([place]) NEGATIVE (NEGATIVE) Blood Type Antibody Screen 12/21/20 Range/Units 21:03 WBC (4.0-11.0) K/uL RBC (4.30-5.90) M/uL Hgb (12.0-16.0) g/dL Hct (36.0-46.0) % MCV (80.0-98.0) fL MCH (27.0-32.0) pg MCHC (31.0-37.0) g/dL RDW Std Deviation (28.0-62.0) fl RDW Coeff of Blue (11.0-15.0) % Plt Count (150-400) K/uL MPV (7.40-12.00) fL Neut % (Auto) (48.0-80.0) % Lymph % (Auto) (16.0-40.0) % [place] % (Auto) (0.0-15.0) % Eos % (Auto) (0.0-7.0) % Baso % (Auto) (0.0-1.5) % Neut # (Auto) (1.4-5.7) K/uL Lymph # (Auto) (0.6-2.4) K/uL [place] # (Auto) (0.0-0.8) K/uL Eos # (Auto) (0.0-0.7) K/uL Baso # (Auto) (0.0-0.1) K/uL Nucleated RBC % /100WBC Nucleated RBCs # K/uL INR APTT (18.6-31.3) SEC Sodium (136-145) mmol/L Potassium (3.5-5.1) mmol/L Chloride (98-107) mmol/L Carbon Dioxide (21.0-32.0) mmol/L BUN (7.0-18.0) mg/dL Creatinine (0.6-1.0) mg/dL Est Cr Clr Drug Dosing mL/min Estimated GFR (MDRD) ml/min Glucose (74-106) mg/dL Calcium (8.5-10.1) mg/dL Magnesium (1.8-2.4) mg/dL Total Bilirubin (0.2-1.0) mg/dL AST (15-37) IU/L ALT (14-63) IU/L Alkaline Phosphatase (46-116) U/L Total Protein (6.4-8.2) g/dL Albumin (3.4-5.0) g/dL Globulin (2.6-4.0) g/dL Albumin/Globulin Ratio (0.9-1.6) Lipase (73-393) U/L Urine Color Urine Appearance Urine pH (5.0-8.0) Ur Specific [place] (1.001-1.035) Urine Protein (NEGATIVE) mg/dL Urine Glucose (UA) (NEGATIVE) mg/dL Urine Ketones (NEGATIVE) mg/dL Urine Occult Blood (NEGATIVE) Urine Nitrite (NEGATIVE) Urine Bilirubin (NEGATIVE) Urine Urobilinogen (<2.0) EU/dL Ur Leukocyte Esterase (NEGATIVE) Urine RBC (0-2/HPF) Urine WBC (0-5/HPF) Ur Epithelial Cells (NONE-FEW) Urine Bacteria (NEGATIVE) Urine Mucus (NONE-MOD) Urine HCG, Qual (NEGATIVE) SARS-CoV-2 RNA ([place]) (NEGATIVE) Blood Type O NEGATIVE Antibody Screen NEGATIVE Meds: Medications Generic Name Dose Route Start Last Admin Trade Name Freq PRN Reason Stop Dose Admin Sodium Chloride 10 ml 12/21/20 19:38 12/21/20 19:51 Saline Flush FLUSH 10 ml ASDIRECTED PRN Administration Keep Vein Open Sodium Chloride 2.5 ml 12/21/20 19:38 12/21/20 19:51 Saline Flush FLUSH 2.5 ml ASDIRECTED PRN Administration Keep Vein Open Discontinued Medications Generic Name Dose Route Start Last Admin Trade Name Freq PRN Reason Stop Dose Admin Fentanyl 50 mcg 12/21/20 19:38 12/21/20 19:51 Fentanyl IVPUSH 12/21/20 19:39 50 mcg ONETIME ONE Administration Hydromorphone HCl 1 mg 12/21/20 20:39 12/21/20 20:46 Dilaudid IVPUSH 12/21/20 20:40 1 mg ONETIME ONE Administration Sodium Chloride 1,000 mls @ 999 mls/hr 12/21/20 19:38 12/21/20 19:51 Normal Saline IV 12/21/20 20:38 999 mls/hr .Bolus ONE Administration Pantoprazole Sodium 40 mg/ 10 mls @ 300 mls/hr 12/21/20 19:38 12/21/20 19:51 Sodium Chloride IV 12/21/20 19:39 300 mls/hr NOW ONE Administration Ondansetron HCl 4 mg 12/21/20 20:24 12/21/20 20:36 Zofran IVPUSH 12/21/20 20:25 4 mg ONETIME ONE Administration Departure - Departure Time of Disposition: 22:01 Disposition: Home, Self-Care 01 Condition: Good Clinical Impression: Coffee ground emesis, Upper GI bleed, Gastritis, History of cirrhosis Abdominal pain Qualifiers: Abdominal location: left upper quadrant Qualified Code(s): R10.12 - Left upper quadrant pain - Discharge Information Instructions: Gastritis, Adult, Abdominal Pain, Adult, [id number], Hematemesis Referrals: Amber Goldsmith NP [Primary Care Provider] - Forms: ED Department Discharge Additional Instructions: You have been seen and evaluated in the ER today secondary to vomiting of coffee-ground material. Your blood tests and CAT scans have all been unremarkable here in the ED. Please make an appointment to follow-up with your primary doctor in the next 1 to 2 days to be reevaluated so so that you can discuss with him your pain management needs. You will be discharged home with Prilosec 20 mg twice a day to assist with the gastritis. Please return to the ER if you have any new or concerning symptoms including worsening bleeding or worsening vomiting of coffee-ground material. The following information is given to patients seen in the emergency department who are being discharged to home. This information is to outline your options for follow-up care. We provide all patients seen in our emergency department with a follow-up referral. The need for follow-up, as well as the timing and circumstances, are variable depending upon the specifics of your emergency department visit. If you don't have a primary care physician on staff, we will provide you with a referral. We always advise you to contact your personal physician following an emergency department visit to inform them of the circumstance of the visit and for follow-up with them and/or the need for any referrals to a consulting specialist. The emergency department will also refer you to a specialist when appropriate. This referral assures that you have the opportunity for follow-up care with a specialist. All of these measure are taken in an effort to provide you with optimal care, which includes your follow-up. Under all circumstances we always encourage you to contact your private physician who remains a resource for coordinating your care. When calling for follow-up care, please make the office aware that this follow-up is from your recent emergency room visit. If for any reason you are refused follow-up, please contact the [facility] Emergency Department at and asked to speak to the emergency department charge nurse. [facility] [address] [place] [address] [id number] [address] Sepsis Event Note (ED) - Evaluation Sepsis Screening Result: No Definite Risk - Focused Exam Vital Signs: Vital Signs Temp Pulse Resp BP Pulse Ox 12/21/20 19:27 98.1 F 117 H 20 103/63 100 - My Orders Last 24 Hours: My Active Orders 12/21/20 19:38 Sodium Chloride 0.9% [Saline Flush] 10 ml FLUSH ASDIRECTED PRN Sodium Chloride 0.9% [Saline Flush] 2.5 ml FLUSH ASDIRECTED PRN Saline Lock Insert [OM.PC] Stat - Assessment/Plan Last 24 Hours: My Active Orders 12/21/20 19:38 Sodium Chloride 0.9% [Saline Flush] 10 ml FLUSH ASDIRECTED PRN Sodium Chloride 0.9% [Saline Flush] 2.5 ml FLUSH ASDIRECTED PRN Saline Lock Insert [OM.PC] Stat
--- NOTE | 2020-12-21 21:44 | CT ---
INDICATION: Abdominal pain. Cirrhosis. Emesis. TECHNIQUE: Noncontrast CT of the abdomen and pelvis. COMPARISON: November 21, 2020. FINDINGS: Clear included lung bases. Slightly nodular contour liver may reflect some degree of cirrhosis. Please correlate clinically. The spleen is within normal limits. Cholelithiasis. No evidence for cholecystitis. Normal appendix. No diverticular disease. Moderately large amount of colonic stool compatible with colonic constipation. No fecal impaction. No bowel obstruction. The stomach and duodenum although incompletely distended are grossly unremarkable. Particulate matter in the stomach likely from a recently ingested meal. Normal unenhanced adrenal glands and kidneys. Normal pancreas. The abdominal aorta, iliac arteries, and inferior vena cava are normal. Normal urinary bladder, uterus and adnexa are unremarkable. The included skeleton is negative for acute fractures. IMPRESSION: 1. Probable colonic constipation. Please correlate clinically. 2. Gallstones. No evidence for cholecystitis. Please note that all CT scans at this facility use dose modulation, iterative reconstruction, and/or weight-based dosing when appropriate to reduce radiation dose to as low as reasonably achievable. Dictated by Kleber Nance MD @ Dec 21 2020 9:33PM Signed by Dr. Kleber Nance @ Dec 21 2020 9:41PM
== END 2020-12-21 22:22 | disposition home or self-care (01) ==
LOC: MW.ED 19:16
DX: K29.71 Gastritis, unspecified, with bleeding (principal); K74.60 Unspecified cirrhosis of liver; Z88.5 Allergy status to narcotic agent; Z79.899 Other long term (current) drug therapy; Z20.822 Contact with and (suspected) exposure to COVID-19
CPT/HCPCS: 36415; 74176; 80053; 81001; 81025; 83690; 83735; 85025; 85610; 85730; 86850; 86900; 86901; 87635; 96374; 96375; 99284; C9113; J1170; J2405; J3010; J7030; U0002

== ENCOUNTER 2021-01-05 14:32 | Emergency (ER) | payer SELFPAY ==
[2021-01-05] MEDS ORDERED: Sodium Chloride 0.9% 2.5 ML Syringe FLUSH PRN (15:26)
[2021-01-05] MEDS ORDERED: Sodium Chloride 0.9% 10 ML Syringe FLUSH PRN (15:26)
[2021-01-05] MEDS ORDERED: Sodium Chloride 0.9% 1,000 ML IV ONE (15:42)
[2021-01-05] MEDS ORDERED: HYDROmorphone 2 MG/ML Syringe IVPUSH ONE ×2 (16:44→19:28)
[2021-01-05 16:54] LABS: BLOOD UREA NITROGEN,BUN 6 mg/dL (7.0-18.0); CARBON DIOXIDE,CO2 27.8 mmol/L (21.0-32.0); CHLORIDE,CL 107 mmol/L (98-107); GLUCOSE RANDOM 86 mg/dL (74-106); LIPASE 246 U/L (73-393); POTASSIUM,K 3.9 mmol/L (3.5-5.1); SODIUM,NA 143 mmol/L (136-145)
[2021-01-05] MEDS ORDERED: Ondansetron 4 MG/2 ML SDV IVPUSH ONE (17:14)
[2021-01-05] MEDS ORDERED: Iopamidol 755 MG/ML 500 ML Multipack Bottle IVPUSH STA (18:30)
--- NOTE | 2021-01-05 19:18 | CT ---
Indication: Right-sided abdominal pain Technique: Volumetric multidetector CT images of the abdomen and pelvis were obtained after the administration of intravenous contrast. 80 cc Isovue 370 low osmolar intravenous contrast Comparison: CT abdomen and pelvis with contrast November 21, 2020 Findings: The lung bases are clear. The liver is normal in attenuation without intrahepatic biliary ductal dilatation. The portal vein is patent. There is dependent calculus within the gallbladder. There is no evidence of pericholecystic fluid. There is no significant common biliary ductal dilatation or abrupt cut off. The spleen is normal in enhancement and size. The stomach and duodenum are grossly unremarkable. The pancreas is normal in enhancement without significant atrophy. The adrenal glands are unremarkable. The kidneys demonstrate preserved corticomedullary differentiation without evidence of obstructive uropathy. There is moderate stool seen throughout the colon. There is no evidence of significant colonic diverticula. There is nonspecific fluid distention of the cecum. The appendix is unremarkable. There is no significant mesenteric, retroperitoneal, or pelvic sidewall lymph nodes. The aorta is nonaneurysmal. There is no significant atherosclerotic disease appreciated. There is demonstration of an involuting right ovarian follicle with minimal physiologic fluid seen within the pelvis. There is no free fluid or free air. The anterior abdominal wall is intact without significant hernias. The lumbar vertebral body heights are grossly maintained in satisfactory alignment without evidence of displaced fracture, lytic or blastic lesion. Impression: Moderate stool seen throughout the colon. Mild nonspecific fluid distention of the cecum which could represent mild colitis changes. Normal appendix. Incidental note is made of an involuting follicle within the right ovary which may represent recent ovarian follicle or cyst rupture. Correlate with history of clinical symptoms. Otherwise, no acute intra-abdominal abnormality is appreciated. Please note that all CT scans at this facility use dose modulation, iterative reconstruction, and/or weight-based dosing when appropriate to reduce radiation dose to as low as reasonably achievable. Dictated by Angel Hernandez MD @ Jan 05 2021 7:07PM Signed by Dr. Angel Hernandez @ Jan 05 2021 7:16PM
--- NOTE | 2021-01-05 19:25 | EDM.PDOC ---
ED HPI GENERAL MEDICAL PROBLEM - General Chief Complaint: Abdominal Pain Stated Complaint: Abdominal Pain Time Seen by Provider: 01/05/21 14:52 Source of Information: Reports: Patient History Limitations: Reports: No Limitations - History of Present Illness INITIAL COMMENTS - FREE TEXT/NARRATIVE: HISTORY AND PHYSICAL: History of present illness: Robbie is a 35-year-old female with a history of cirrhosis secondary to alcohol use who presents emergency room today with concern of right upper abdominal pain that radiates into her right lower abdominal area over the past several hours. Patient states that she did not qualify for a liver transplant as she states that she is in the ""stages of cirrhosis. States that her liver is not bad enough for transplant. Patient states she has not consumed alcohol since September 2020. Patient states she has not taken anything for her symptoms and any other associated symptoms. Patient does state that her abdominal pain today is worse than her usual but she has been seen and evaluated for prior. Patient denies fever, chills, chest pain, shortness of breath, or cough. Denies headache, neck stiff ness, change in vision, syncope, or near syncope. Denies nausea, vomiting, diarrhea, constipation, or dysuria. Has not noted any blood in urine or stool. Patient has been eating and drinking appropriately. Review of systems: As per history of present illness and below otherwise all systems reviewed and negative. Past medical history: As per history of present illness and as reviewed below otherwise noncontributory. Surgical history: As per history of present illness and as reviewed below otherwise noncontributory. Social history: See social history for further information Family history: As per history of present illness and as reviewed below otherwise noncontributory. Physical exam: General: Patient is alert, oriented, and in no acute distress. Patient sitting comfortably on exam table. HEENT: Atraumatic, normocephalic, pupils equal and reactive bilaterally, negative for conjunctival pallor or scleral icterus, mucous membranes moist, TMs normal bilaterally, throat clear, neck supple, nontender, trachea midline. No drooling or trismus noted. No meningeal signs. No hot potato voice noted. Lungs: Clear to auscultation, breath sounds equal bilaterally, chest nontender. Heart: S1S2, regular rate and rhythm without overt murmur Abdomen: Soft, nondistended, moderate right sided abdominal tenderness without guarding. Negative rebound/mixon. Negative for masses or hepatosplenomegaly. Negative for costovertebral tenderness. Pelvis: Stable nontender. Genitourinary: Deferred. Rectal: Deferred. Skin: Intact, warm, dry. No lesions or rashes noted. Extremities: Atraumatic, negative for cords or calf pain. Neurovascular unremarkable. Neuro: Awake, alert, oriented. Cranial nerves II through XII unremarkable. Cerebellum unremarkable. Motor and sensory unremarkable throughout. Exam nonfocal. Notes: Upon initial arrival to the ED, patient does have moderate significant right- sided abdominal pain. Patient has been seen frequently in the emergency room for abdominal pain and has had multiple abdominal pelvic CT scans over the course of the past several months. I discussed this thoroughly with patient but she does state that her pain today is "different "and is more "significant "than her other pain of her abdomen in the past. At this time, routine lab work and scan of her abdomen and pelvis with the CT was warranted due to the new and more severe symptoms. Upon reexamination of patient, she is more comfortable with therapeutics given today in the emergency room. She remains vitally stable throughout stay in ED. All incidental findings of imaging today discussed with patient and the import ance to have this followed up with a primary care provider. Patient is able to tolerate PO intake in the ED. Patient provided with stool collection supplies to provide at home and return to our lab due to colitis concern. Patient was started on ciprofloxacin for empiric treatment for possible infectious colitis. Strict return precautions thoroughly discussed with patient. Discussed importance for follow-up with a primary care provider. Voices understanding and is agreeable to plan of care. Denies any further questions or concerns at this time. Diagnostics: CBC, CMP, UA, Lipase, Abd/Pelvic CT w cont, hcg Therapeutics: NS, Zofran, Dilaudid Prescription: Ciprofloxacin, Stool studies Impression: Right sided abdominal pain Colitis, unspecified, mild Plan: 1. Take medication as prescribed. You can use ibuprofen as directed for pain and discomfort. 2. Follow-up with your primary care provider as discussed. Return to the ED as needed and as discussed. 3. Stool collection supplies have been provided to you. Once you are able to leave a sample, return as to our lab for further diagnostics. Definitive disposition and diagnosis as appropriate pending reevaluation and review of above. Abdominal Pain Score (Numeric/FACES): 10 - Related Data Allergies Allergy/AdvReac Type Severity Reaction Status Date / Time codeine Allergy Mild Nausea and Verified 01/05/21 15:02 Vomiting Home Meds: Home Meds Furosemide [Lasix] 20 mg PO DAILY tablet 11/17/20 [Rx] Lactulose 10 gm PO BID PRN 10 Days #1 bottle 11/17/20 [Rx] LORazepam [Ativan] 0.5 mg PO BID PRN 12/10/20 [History] Spironolactone [Aldactone] 50 mg PO DAILY 12/10/20 [History] oxyCODONE 5 mg PO DAILY PRN 12/10/20 [History] Ciprofloxacin [Ciprofloxacin HCl] 500 mg PO BID 5 Days #10 tab 01/05/21 [Rx] Omeprazole Magnesium [Prilosec Otc] 20 mg PO BID PRN 01/05/21 [History] Past Medical History HEENT History: Reports: None Other HEENT History: Yellow sclera Cardiovascular History: Reports: None Respiratory History: Reports: Other (See Below) Other Respiratory History: Pluerisy Gastrointestinal History: Reports: Cirrhosis, Other (See Below) Other Gastrointestinal History: heartburn Genitourinary History: Reports: Other (See Below) Other Genitourinary History: yeast infection during [employer] History: Reports: Musculoskeletal History: Reports: Back Pain, Chronic Other Musculoskeletal History: hx herniated disc in lower back Neurological History: Reports: None Psychiatric History: Reports: Anxiety 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 Hematologic History: Reports: None Immunologic History: Reports: None Oncologic (Cancer) History: Reports: Cervix Dermatologic History: Reports: None - Infectious Disease History Infectious Disease History: Reports: Chicken Pox, Influenza, Novel Coronavirus - Past Surgical History Head Surgeries/Procedures: Reports: None HEENT Surgical History: Reports: Oral Surgery Other HEENT Surgeries/Procedures: teeth removed at 26 years of age wears dentures Respiratory Surgical History: Reports: None GI Surgical History: Reports: Other (See Below) Other GI Surgeries/Procedures: Weekly paracentesis in [place] Female Surgical History: Reports: None Musculoskeletal Surgical History: Reports: None Oncologic Surgical History: Reports: Other (See Below) Other Oncologic Surgeries/Procedures: LEEP Social & Family History - Family History Family Medical History: No Pertinent Family History HEENT: Reports: Cataract, Glaucoma, Impaired Vision Cardiac: Reports: CAD, High Cholesterol, Hypertension GI: Reports: Cholelithiasis, Hepatitis OBGYN: Reports: Endometriosis Musculoskeletal: Reports: Arthritis, Back pain, Chronic, Neck Pain, Chronic, Osteoarthritis, RA Neurological: Reports: Alzheimers Disease, Dementia, Parkinson's Psychiatric: Reports: ADD, ADHD, Anxiety, Depression, Emotional Problems, Lear lobito Disability, Mood Swings, Panic Attack Endocrine/Metabolic: Reports: Diabetes, type II, Hyperthyroidism Oncologic: Reports: Leukemia - Tobacco Use Tobacco Use Status *Q: Unknown Ever Used Tobacco - Caffeine Use Caffeine Use: Reports: None - Recreational Drug Use Recreational Drug Use: No ED ROS GENERAL - Review of Systems Review Of Systems: Comprehensive ROS is negative, except as noted in HPI. ED EXAM, GENERAL - Physical Exam Exam: See Below (see dictation) Course - Vital Signs Last Recorded V/S: Last Vital Signs Temp 97.6 F 01/05/21 15:03 Pulse 88 01/05/21 16:55 Resp 16 01/05/21 16:55 BP 100/60 01/05/21 16:55 Pulse Ox 100 01/05/21 16:55 - Orders/Labs/Meds Orders: Active Orders 24 hr Category Date Time Status CULTURE URINE [RM] Stat Lab 01/05/21 15:32 Received Sodium Chloride 0.9% [Saline Flush] Med 01/05/21 15:26 Active 10 ml FLUSH ASDIRECTED PRN Sodium Chloride 0.9% [Saline Flush] Med 01/05/21 15:26 Active 2.5 ml FLUSH ASDIRECTED PRN Saline Lock Insert [OM.PC] Stat Oth 01/05/21 15:26 Ordered Medication Orders Sodium Chloride (Saline Flush) 10 ml FLUSH ASDIRECTED PRN PRN Reason: Keep Vein Open Last Admin: 01/05/21 16:21 Dose: 10 ml Documented by: [id number] Sodium Chloride (Saline Flush) 2.5 ml FLUSH ASDIRECTED PRN PRN Reason: Keep Vein Open Last Admin: 01/05/21 16:21 Dose: 2.5 ml Documented by: [id number] Labs: Laboratory Tests 01/05/21 01/05/21 01/05/21 Range/Units 15:32 16:12 16:12 WBC 4.54 (4.0-11.0) K/uL RBC 3.52 L (4.30-5.90) M/uL Hgb 11.2 L (12.0-16.0) g/dL Hct 34.0 L (36.0-46.0) % MCV 96.6 (80.0-98.0) fL MCH 31.8 (27.0-32.0) pg MCHC 32.9 (31.0-37.0) g/dL RDW Std Deviation 49.9 (28.0-62.0) fl RDW Coeff of Lbue 14 (11.0-15.0) % Plt Count 222 (150-400) K/uL MPV 10.90 (7.40-12.00) fL Neut % (Auto) 50.9 (48.0-80.0) % Lymph % (Auto) 32.8 (16.0-40.0) % Turner % (Auto) 13.0 (0.0-15.0) % Eos % (Auto) 2.4 (0.0-7.0) % Baso % (Auto) 0.9 (0.0-1.5) % Neut # (Auto) 2.3 (1.4-5.7) K/uL Lymph # (Auto) 1.5 (0.6-2.4) K/uL Turner # (Auto) 0.6 (0.0-0.8) K/uL Eos # (Auto) 0.1 (0.0-0.7) K/uL Baso # (Auto) 0.0 (0.0-0.1) K/uL Nucleated RBC % 0.0 /100WBC Nucleated RBCs # 0 K/uL Sodium 143 (136-145) mmol/L Potassium 3.9 (3.5-5.1) mmol/L Chloride 107 (98-107) mmol/L Carbon Dioxide 27.8 (21.0-32.0) mmol/L BUN 6 L (7.0-18.0) mg/dL Creatinine 0.6 (0.6-1.0) mg/dL Est Cr Clr Drug Dosing 83.54 mL/min Estimated GFR (MDRD) > 60.0 ml/min Glucose 86 (74-106) mg/dL Calcium 9.6 (8.5-10.1) mg/dL Total Bilirubin 0.4 (0.2-1.0) mg/dL AST 22 (15-37) IU/L ALT 20 (14-63) IU/L Alkaline Phosphatase 63 (46-116) U/L Total Protein 7.2 (6.4-8.2) g/dL Albumin 3.0 L (3.4-5.0) g/dL Globulin 4.2 H (2.6-4.0) g/dL Albumin/Globulin Ratio 0.7 L (0.9-1.6) Lipase 246 (73-393) U/L HCG, Qual (NEG) Urine Color STRAW Urine Appearance CLEAR Urine pH 7.5 (5.0-8.0) Ur Specific [place] 1.010 (1.001-1.035) Urine Protein NEGATIVE (NEGATIVE) mg/dL Urine Glucose (UA) NEGATIVE (NEGATIVE) mg/dL Urine Ketones NEGATIVE (NEGATIVE) mg/dL Urine Occult Blood NEGATIVE (NEGATIVE) Urine Nitrite NEGATIVE (NEGATIVE) Urine Bilirubin NEGATIVE (NEGATIVE) Urine Urobilinogen 0.2 (<2.0) EU/dL Ur Leukocyte Esterase SMALL H (NEGATIVE) Urine RBC 0-2 (0-2/HPF) Urine WBC 3-5 (0-5/HPF) Ur Epithelial Cells FEW (NONE-FEW) Urine Bacteria FEW (NEGATIVE) Urine Yeast OCCASIONAL 01/05/21 Range/Units 16:12 WBC (4.0-11.0) K/uL RBC (4.30-5.90) M/uL Hgb (12.0-16.0) g/dL Hct (36.0-46.0) % MCV (80.0-98.0) fL MCH (27.0-32.0) pg MCHC (31.0-37.0) g/dL RDW Std Deviation (28.0-62.0) fl RDW Coeff of Blue (11.0-15.0) % Plt Count (150-400) K/uL MPV (7.40-12.00) fL Neut % (Auto) (48.0-80.0) % Lymph % (Auto) (16.0-40.0) % Turner % (Auto) (0.0-15.0) % Eos % (Auto) (0.0-7.0) % Baso % (Auto) (0.0-1.5) % Neut # (Auto) (1.4-5.7) K/uL Lymph # (Auto) (0.6-2.4) K/uL Turner # (Auto) (0.0-0.8) K/uL Eos # (Auto) (0.0-0.7) K/uL Baso # (Auto) (0.0-0.1) K/uL Nucleated RBC % /100WBC Nucleated RBCs # K/uL Sodium (136-145) mmol/L Potassium (3.5-5.1) mmol/L Chloride (98-107) mmol/L Carbon Dioxide (21.0-32.0) mmol/L BUN (7.0-18.0) mg/dL Creatinine (0.6-1.0) mg/dL Est Cr Clr Drug Dosing mL/min Estimated GFR (MDRD) ml/min Glucose (74-106) mg/dL Calcium (8.5-10.1) mg/dL Total Bilirubin (0.2-1.0) mg/dL AST (15-37) IU/L ALT (14-63) IU/L Alkaline Phosphatase (46-116) U/L Total Protein (6.4-8.2) g/dL Albumin (3.4-5.0) g/dL Globulin (2.6-4.0) g/dL Albumin/Globulin Ratio (0.9-1.6) Lipase (73-393) U/L HCG, Qual NEGATIVE (NEG) Urine Color Urine Appearance Urine pH (5.0-8.0) Ur Specific [place] (1.001-1.035) Urine Protein (NEGATIVE) mg/dL Urine Glucose (UA) (NEGATIVE) mg/dL Urine Ketones (NEGATIVE) mg/dL Urine Occult Blood (NEGATIVE) Urine Nitrite (NEGATIVE) Urine Bilirubin (NEGATIVE) Urine Urobilinogen (<2.0) EU/dL Ur Leukocyte Esterase (NEGATIVE) Urine RBC (0-2/HPF) Urine WBC (0-5/HPF) Ur Epithelial Cells (NONE-FEW) Urine Bacteria (NEGATIVE) Urine Yeast Meds: Medications Generic Name Dose Route Start Last Admin Trade Name Freq PRN Reason Stop Dose Admin Sodium Chloride 10 ml 01/05/21 15:26 01/05/21 16:21 Saline Flush FLUSH 10 ml ASDIRECTED PRN Administration Keep Vein Open Sodium Chloride 2.5 ml 01/05/21 15:26 01/05/21 16:21 Saline Flush FLUSH 2.5 ml ASDIRECTED PRN Administration Keep Vein Open Discontinued Medications Generic Name Dose Route Start Last Admin Trade Name Tanvir PRN Reason Stop Dose Admin Hydromorphone HCl 0.5 mg 01/05/21 16:44 01/05/21 16:55 Dilaudid IVPUSH 01/05/21 16:45 0.5 mg ONETIME ONE Administration Hydromorphone HCl 0.5 mg 01/05/21 19:28 01/05/21 19:35 Dilaudid IVPUSH 01/05/21 19:29 0.5 mg ONETIME ONE Administration Sodium Chloride 1,000 mls @ 999 mls/hr 01/05/21 15:42 01/05/21 16:21 Normal Saline IV 01/05/21 16:42 999 mls/hr STAT ONE Administration Iopamidol 80 ml 01/05/21 18:30 01/05/21 19:17 Isovue Multipack-370 (76%) IVPUSH 01/05/21 18:31 80 ml ONETIME STA Administration Ondansetron HCl 4 mg 01/05/21 17:14 01/05/21 18:05 Zofran IVPUSH 01/05/21 17:15 4 mg ONETIME ONE Administration Departure - Departure Time of Disposition: 19:24 Disposition: Home, Self-Care 01 Clinical Impression: Colitis Abdominal pain Qualifiers: Abdominal location: left upper quadrant Qualified Code(s): R10.12 - Left upper quadrant pain - Discharge Information Prescriptions: Ciprofloxacin [Ciprofloxacin HCl] 500 mg PO BID 5 Days #10 tab Instructions: Colitis Referrals: Carlin Mansfield MD [Primary Care Provider] - Forms: ED Department Discharge Additional Instructions: The following information is given to patients seen in the emergency department who are being discharged to home. This information is to outline your options for follow-up care. We provide all patients seen in our emergency department with a follow-up referral. The need for follow-up, as well as the timing and circumstances, are variable depending upon the specifics of your emergency department visit. If you don't have a primary care physician on staff, we will provide you with a referral. We always advise you to contact your personal physician following an emergency department visit to inform them of the circumstance of the visit and for follow-up with them and/or the need for any referrals to a consulting specialist. The emergency department will also refer you to a specialist when appropriate. This referral assures that you have the opportunity for follow-up care with a specialist. All of these measure are taken in an effort to provide you with optimal care, which includes your follow-up. Under all circumstances we always encourage you to contact your private tushar small who remains a resource for coordinating your care. When calling for follow-up care, please make the office aware that this follow-up is from your recent emergency room visit. If for any reason you are refused follow-up, please contact the [facility] Emergency Department at and asked to speak to the emergency department charge nurse. [facility] [address] [place] [address] [place] [address] 1. Take medication as prescribed. You can use ibuprofen as directed for pain and discomfort. 2. Follow-up with your primary care provider as discussed. Return to the ED as needed and as discussed. 3. Stool collection supplies have been provided to you. Once you are able to leave a sample, return as to our lab for further diagnostics. Sepsis Event Note (ED) - Evaluation Sepsis Screening Result: No Definite Risk - Focused Exam Vital Signs: Vital Signs Temp Pulse Resp BP Pulse Ox 01/05/21 16:55 88 16 100/60 100 01/05/21 15:03 97.6 F 103 H 17 100/66 98 - My Orders Last 24 Hours: My Active Orders 01/05/21 15:26 Sodium Chloride 0.9% [Saline Flush] 10 ml FLUSH ASDIRECTED PRN Sodium Chloride 0.9% [Saline Flush] 2.5 ml FLUSH ASDIRECTED PRN Saline Lock Insert [OM.PC] Stat 01/05/21 15:32 CULTURE URINE [RM] Stat - Assessment/Plan Last 24 Hours: My Active Orders 01/05/21 15:26 Sodium Chloride 0.9% [Saline Flush] 10 ml FLUSH ASDIRECTED PRN Sodium Chloride 0.9% [Saline Flush] 2.5 ml FLUSH ASDIRECTED PRN Saline Lock Insert [OM.PC] Stat 01/05/21 15:32 CULTURE URINE [RM] Stat
== END 2021-01-05 19:46 | disposition home or self-care (01) ==
LOC: MW.ED 14:32
DX: K52.9 Noninfective gastroenteritis and colitis, unspecified (principal); Z88.5 Allergy status to narcotic agent; Z79.899 Other long term (current) drug therapy
CPT/HCPCS: 74177; 80053; 81001; 83690; 84703; 85025; 87086; 96374; 96375; 96376; 99284; J1170; J2405; J7030; Q9967

== ENCOUNTER 2021-01-13 15:59 | Emergency (ER) | payer SELFPAY ==
[2021-01-13] MEDS ORDERED: Sodium Chloride 0.9% 1,000 ML IV ONE (16:53)
[2021-01-13] MEDS ORDERED: oxyCODONE 5 MG Tab PO ONE (16:53)
--- NOTE | 2021-01-13 16:56 | EDM.PDOC ---
ED HPI GENERAL MEDICAL PROBLEM - General Chief Complaint: Genitourinary Problem Stated Complaint: CIRRHOSIS BLOOD IN URINE Time Seen by Provider: 01/13/21 16:19 Source of Information: Reports: Patient History Limitations: Reports: No Limitations - History of Present Illness INITIAL COMMENTS - FREE TEXT/NARRATIVE: Patient is a 35-year-old female with a history of liver cirrhosis who presents today for possible blood in her urine. Patient dates that she was at work and she did flush the toilet [place] and behind her and said that she had blood in her urine and told her she should come straight to the hospital. Patient denies any blood in her urine that she seen she denies any new abdominal pain no nausea vomiting fever chills other than the blood in her urine patient has no other complaints. Right Abdomen Pain Score (Numeric/FACES): 8 - Related Data Allergies Allergy/AdvReac Type Severity Reaction Status Date / Time codeine Allergy Mild Nausea and Verified 01/13/21 16:30 Vomiting Home Meds: Home Meds Furosemide [Lasix] 20 mg PO DAILY tablet 11/17/20 [Rx] Lactulose 10 gm PO BID PRN 10 Days #1 bottle 11/17/20 [Rx] LORazepam [Ativan] 0.5 mg PO BID PRN 12/10/20 [History] Spironolactone [Aldactone] 50 mg PO DAILY 12/10/20 [History] oxyCODONE 5 mg PO DAILY PRN 12/10/20 [History] Ciprofloxacin [Ciprofloxacin HCl] 500 mg PO BID 5 Days #10 tab 01/05/21 [Rx] Omeprazole Magnesium [Prilosec Otc] 20 mg PO BID PRN 01/05/21 [History] Past Medical History HEENT History: Reports: None Other HEENT History: Yellow sclera Cardiovascular History: Reports: None Respiratory History: Reports: Other (See Below) Other Respiratory History: Pluerisy Gastrointestinal History: Reports: Cirrhosis, Other (See Below) Other Gastrointestinal History: heartburn Genitourinary History: Reports: Other (See Below) Other Genitourinary History: yeast infection during IV RN History: Reports: Musculoskeletal History: Reports: Back Pain, Chronic Other Musculoskeletal History: hx herniated disc in lower back Neurological History: Reports: None Psychiatric History: Reports: Anxiety Insulin Pump Model and Hopper Attendant: None Hematologic History: Reports: None Immunologic History: Reports: None Oncologic (Cancer) History: Reports: Cervix Dermatologic History: Reports: None - Infectious Disease History Infectious Disease History: Reports: Chicken Pox, Influenza, Novel Coronavirus - Past Surgical History Head Surgeries/Procedures: Reports: None HEENT Surgical History: Reports: Oral Surgery Other HEENT Surgeries/Procedures: teeth removed at 26 years of age wears dentures Respiratory Surgical History: Reports: None GI Surgical History: Reports: Other (See Below) Other GI Surgeries/Procedures: Weekly paracentesis in [facility] Female Surgical History: Reports: None Musculoskeletal Surgical History: Reports: None Oncologic Surgical History: Reports: Other (See Below) Other Oncologic Surgeries/Procedures: LEEP Social & Family History - Family History Family Medical History: No Pertinent Family History HEENT: Reports: Cataract, Glaucoma, Impaired Vision Cardiac: Reports: CAD, High Cholesterol, Hypertension GI: Reports: Cholelithiasis, Hepatitis OBGYN: Reports: Endometriosis Musculoskeletal: Reports: Arthritis, Back pain, Chronic, Neck Pain, Chronic, Osteoarthritis, RA Neurological: Reports: Alzheimers Disease, Dementia, Parkinson's Psychiatric: Reports: ADD, ADHD, Anxiety, Depression, Emotional Problems, Learning Disability, Mood Swings, Panic Attack Endocrine/Metabolic: Reports: Diabetes, type II, Hyperthyroidism Oncologic: Reports: Leukemia - Tobacco Use Tobacco Use Status *Q: Never Tobacco User - Caffeine Use Caffeine Use: Reports: None - Recreational Drug Use Recreational Drug Use: No ED ROS GENERAL - Review of Systems Review Of Systems: See Below Constitutional: Reports: No Symptoms HEENT: Reports: No Symptoms Respiratory: Reports: No Symptoms Cardiovascular: Reports: No Symptoms Endocrine: Reports: No Symptoms GI/Abdominal: Reports: No Symptoms : Reports: Hematuria Musculoskeletal: Reports: No Symptoms Skin: Reports: No Symptoms Neurological: Reports: No Symptoms Psychiatric: Reports: No Symptoms Hematologic/Lymphatic: Reports: No Symptoms Immunologic: Reports: No Symptoms ED EXAM, GI/ABD - Physical Exam Exam: See Below Exam Limited By: No Limitations General Appearance: Alert, WD/WN Eyes: Bilateral: EOMI Respiratory/Chest: No Respiratory Distress, Lungs Clear, Normal Breath Sounds Cardiovascular: Normal Peripheral Pulses, Regular Rate, Rhythm GI/Abdominal Exam: Normal Bowel Sounds, Soft, Non-Tender Extremities: Normal Inspection Neurological: Alert, Oriented, Normal Cognition, Normal Gait Course - Vital Signs Last Recorded V/S: Last Vital Signs Temp 98 F 01/13/21 16:30 Pulse 110 H 01/13/21 16:30 Resp 18 01/13/21 16:30 BP 106/66 01/13/21 16:30 Pulse Ox 100 01/13/21 16:30 - Orders/Labs/Meds Labs: Laboratory Tests 01/13/21 01/13/21 01/13/21 Range/Units 16:18 16:18 17:23 WBC 4.59 (4.0-11.0) K/uL RBC 3.45 L (4.30-5.90) M/uL Hgb 10.7 L (12.0-16.0) g/dL Hct 32.4 L (36.0-46.0) % MCV 93.9 (80.0-98.0) fL MCH 31.0 (27.0-32.0) pg MCHC 33.0 (31.0-37.0) g/dL RDW Std Deviation 49.0 (28.0-62.0) fl RDW Coeff of Blue 14 (11.0-15.0) % Plt Count 198 (150-400) K/uL MPV 10.90 (7.40-12.00) fL Neut % (Auto) 59.7 (48.0-80.0) % Lymph % (Auto) 30.3 (16.0-40.0) % [place] % (Auto) 6.5 (0.0-15.0) % Eos % (Auto) 3.1 (0.0-7.0) % Baso % (Auto) 0.4 (0.0-1.5) % Neut # (Auto) 2.7 (1.4-5.7) K/uL Lymph # (Auto) 1.4 (0.6-2.4) K/uL [place] # (Auto) 0.3 (0.0-0.8) K/uL Eos # (Auto) 0.1 (0.0-0.7) K/uL Baso # (Auto) 0.0 (0.0-0.1) K/uL Nucleated RBC % 0.0 /100WBC Nucleated RBCs # 0 K/uL Sodium (136-145) mmol/L Potassium (3.5-5.1) mmol/L Chloride (98-107) mmol/L Carbon Dioxide (21.0-32.0) mmol/L BUN (7.0-18.0) mg/dL Creatinine (0.6-1.0) mg/dL Est Cr Clr Drug Dosing mL/min Estimated GFR (MDRD) ml/min Glucose (74-106) mg/dL Calcium (8.5-10.1) mg/dL Total Bilirubin (0.2-1.0) mg/dL AST (15-37) IU/L ALT (14-63) IU/L Alkaline Phosphatase (46-116) U/L Total Protein (6.4-8.2) g/dL Albumin (3.4-5.0) g/dL Globulin (2.6-4.0) g/dL Albumin/Globulin Ratio (0.9-1.6) Lipase (73-393) U/L Urine Color YELLOW Urine Appearance CLEAR Urine pH 7.0 (5.0-8.0) Ur Specific [place] 1.010 (1.001-1.035) Urine Protein NEGATIVE (NEGATIVE) mg/dL Urine Glucose (UA) NEGATIVE (NEGATIVE) mg/dL Urine Ketones NEGATIVE (NEGATIVE) mg/dL Urine Occult Blood NEGATIVE (NEGATIVE) Urine Nitrite NEGATIVE (NEGATIVE) Urine Bilirubin NEGATIVE (NEGATIVE) Urine Urobilinogen 1.0 (<2.0) EU/dL Ur Leukocyte Esterase NEGATIVE (NEGATIVE) Urine HCG, Qual NEGATIVE (NEGATIVE) 01/13/21 Range/Units 17:23 WBC (4.0-11.0) K/uL RBC (4.30-5.90) M/uL Hgb (12.0-16.0) g/dL Hct (36.0-46.0) % MCV (80.0-98.0) fL MCH (27.0-32.0) pg MCHC (31.0-37.0) g/dL RDW Std Deviation (28.0-62.0) fl RDW Coeff of Blue (11.0-15.0) % Plt Count (150-400) K/uL MPV (7.40-12.00) fL Neut % (Auto) (48.0-80.0) % Lymph % (Auto) (16.0-40.0) % [place] % (Auto) (0.0-15.0) % Eos % (Auto) (0.0-7.0) % Baso % (Auto) (0.0-1.5) % Neut # (Auto) (1.4-5.7) K/uL Lymph # (Auto) (0.6-2.4) K/uL [place] # (Auto) (0.0-0.8) K/uL Eos # (Auto) (0.0-0.7) K/uL Baso # (Auto) (0.0-0.1) K/uL Nucleated RBC % /100WBC Nucleated RBCs # K/uL Sodium 138 (136-145) mmol/L Potassium 3.3 L (3.5-5.1) mmol/L Chloride 102 (98-107) mmol/L Carbon Dioxide 28.1 (21.0-32.0) mmol/L BUN 5 L (7.0-18.0) mg/dL Creatinine 0.8 (0.6-1.0) mg/dL Est Cr Clr Drug Dosing 73.09 mL/min Estimated GFR (MDRD) > 60.0 ml/min Glucose 80 (74-106) mg/dL Calcium 8.4 L (8.5-10.1) mg/dL Total Bilirubin 0.2 (0.2-1.0) mg/dL AST 19 (15-37) IU/L ALT 17 (14-63) IU/L Alkaline Phosphatase 58 (46-116) U/L Total Protein 6.8 (6.4-8.2) g/dL Albumin 2.9 L (3.4-5.0) g/dL Globulin 3.9 (2.6-4.0) g/dL Albumin/Globulin Ratio 0.7 L (0.9-1.6) Lipase 92 (73-393) U/L Urine Color Urine Appearance Urine pH (5.0-8.0) Ur Specific [place] (1.001-1.035) Urine Protein (NEGATIVE) mg/dL Urine Glucose (UA) (NEGATIVE) mg/dL Urine Ketones (NEGATIVE) mg/dL Urine Occult Blood (NEGATIVE) Urine Nitrite (NEGATIVE) Urine Bilirubin (NEGATIVE) Urine Urobilinogen (<2.0) EU/dL Ur Leukocyte Esterase (NEGATIVE) Urine HCG, Qual (NEGATIVE) Meds: Medications Discontinued Medications Generic Name Dose Route Start Last Admin Trade Name Freq PRN Reason Stop Dose Admin Sodium Chloride 1,000 mls @ 999 mls/hr 01/13/21 16:53 01/13/21 17:09 Normal Saline IV 01/13/21 17:53 Not Given .BOLUS ONE Oxycodone HCl 5 mg 01/13/21 16:53 01/13/21 17:14 Oxycodone 5 Mg Tab PO 01/13/21 16:54 5 mg ONETIME ONE Administration - Re-Assessments/Exams Free Text/Narrative Re-Assessment/Exam: 01/13/21 18:10 10 urine shows no signs of blood. Patient labs reviewed as well. Patient will be discharged home and patient is tolerating p.o. and stable. Departure - Departure Time of Disposition: 18:10 Disposition: Home, Self-Care 01 Condition: Good Clinical Impression: Abdominal pain Qualifiers: Abdominal location: left upper quadrant Qualified Code(s): R10.12 - Left upper quadrant pain - Discharge Information *PRESCRIPTION DRUG MONITORING PROGRAM REVIEWED*: Not Applicable *COPY OF PRESCRIPTION DRUG MONITORING REPORT IN PATIENT TATE: Not Applicable Instructions: Abdominal Pain, Adult Referrals: Carlin Mansfield MD [Primary Care Provider] - Forms: ED Department Discharge Additional Instructions: The following information is given to patients seen in the emergency department who are being discharged to home. This information is to outline your options for follow-up care. We provide all patients seen in our emergency department with a follow-up referral. The need for follow-up, as well as the timing and circumstances, are variable depending upon the specifics of your emergency department visit. If you don't have a primary care physician on staff, we will provide you with a referral. We always advise you to contact your personal physician following an emergency department visit to inform them of the circumstance of the visit and for follow-up with them and/or the need for any referrals to a consulting specialist. The emergency department will also refer you to a specialist when appropriate. This referral assures that you have the opportunity for follow-up care with a specialist. All of these measure are taken in an effort to provide you with optimal care, which includes your follow-up. Under all circumstances we always encourage you to contact your private physician who remains a resource for coordinating your care. When calling for follow-up care, please make the office aware that this follow-up is from your recent emergency room visit. If for any reason you are refused follow-up, please contact the [facility] Emergency Department at and asked to speak to the emergency department charge nurse. Please follow up with your primary care physician. If you do not have a primary care physician, see below: [facility] [address] [place] [id number] [facility] [address] [place] [address] Please follow-up with your primary care physician. If you have any other concerning symptoms or signs please return to the ED immediately. Sepsis Event Note (ED) - Evaluation Sepsis Screening Result: No Definite Risk - Focused Exam Vital Signs: Vital Signs Temp Pulse Resp BP Pulse Ox 01/13/21 16:30 98 F 110 H 18 106/66 100 - Assessment/Plan Plan: Robbie is a 35-year-old female presents today for possible blood in her urine. We will repeat do UA and reassess patient.
[2021-01-13 17:57] LABS: BLOOD UREA NITROGEN,BUN 5 mg/dL (7.0-18.0); CARBON DIOXIDE,CO2 28.1 mmol/L (21.0-32.0); CHLORIDE,CL 102 mmol/L (98-107); GLUCOSE RANDOM 80 mg/dL (74-106); LIPASE 92 U/L (73-393); POTASSIUM,K 3.3 mmol/L (3.5-5.1); SODIUM,NA 138 mmol/L (136-145)
== END 2021-01-13 18:25 | disposition home or self-care (01) ==
LOC: MW.ED 15:59
DX: R10.12 Left upper quadrant pain (principal); Z88.5 Allergy status to narcotic agent; Z79.899 Other long term (current) drug therapy
CPT/HCPCS: 36415; 80053; 81003; 81025; 83690; 85025; 99283; A9270; 99282

== ENCOUNTER 2021-01-15 20:05 | Emergency (ER) | payer SELFPAY ==
[2021-01-15] MEDS ORDERED: Sodium Chloride 0.9% 2.5 ML Syringe FLUSH PRN (20:12)
[2021-01-15] MEDS ORDERED: Sodium Chloride 0.9% 10 ML Syringe FLUSH PRN (20:12)
[2021-01-15] MEDS ORDERED: Sodium Chloride 0.9% 1,000 ML IV ONE (20:12)
--- NOTE | 2021-01-15 20:14 | EDM.PDOC ---
<Rocky Finney - Last Filed: 01/16/21 00:08> ED HPI GENERAL MEDICAL PROBLEM - General Chief Complaint: Chest Pain Stated Complaint: SHARP ABD PAIN AND CHEST PAIN Time Seen by Provider: 01/15/21 20:07 - Related Data Allergies Allergy/AdvReac Type Severity Reaction Status Date / Time No Known Allergies Allergy Verified 01/15/21 20:11 Home Meds: Home Meds Furosemide [Lasix] 20 mg PO DAILY tablet 11/17/20 [Rx] Lactulose 10 gm PO BID PRN 10 Days #1 bottle 11/17/20 [Rx] LORazepam [Ativan] 0.5 mg PO BID PRN 12/10/20 [History] Spironolactone [Aldactone] 50 mg PO DAILY 12/10/20 [History] oxyCODONE 5 mg PO DAILY PRN 12/10/20 [History] Ciprofloxacin [Ciprofloxacin HCl] 500 mg PO BID 5 Days #10 tab 01/05/21 [Rx] Omeprazole Magnesium [Prilosec Otc] 20 mg PO BID PRN 01/05/21 [History] ED ROS GENERAL - Review of Systems Review Of Systems: Comprehensive ROS is negative, except as noted in HPI. ED EXAM, GENERAL - Physical Exam Exam: See Below Free Text/Narrative:: Physical exam is in the HPI Course - Vital Signs Text/Narrative:: 20 the patient still has abdominal pain. She is waiting for a second troponin regarding the chest pain. Has not had any chest pain while she is here and her troponin is negative. Plan to medicate for her chronic recurring abdominal pain and advised follow-up with her primary. Departure - Departure Time of Disposition: 00:08 Disposition: Home, Self-Care 01 Condition: Good Clinical Impression: Atypical chest pain Abdominal pain Qualifiers: Abdominal location: left upper quadrant Qualified Code(s): R10.12 - Left upper quadrant pain Instructions: Abdominal Pain, Adult, [id number] Referrals: PCP,Unobtain [Primary Care Provider] - Forms: ED Department Discharge Additional Instructions: [facility] - [facility] [address] [place] [id number] [address] [address] The following information is given to patients seen in the emergency department who are being discharged to home. This information is to outline your options for follow-up care. We provide all patients seen in our emergency department wit h a follow-up referral. The need for follow-up, as well as the timing and circumstances, are variable depending upon the specifics of your emergency department visit. If you don't have a primary care physician on staff, we will provide you with a referral. We always advise you to contact your personal physician following an emergency department visit to inform them of the circumstance of the visit and for follow-up with them and/or the need for any referrals to a consulting specialist. The emergency department will also refer you to a specialist when appropriate. This referral assures that you have the opportunity for follow-up care with a specialist. All of these measure are taken in an effort to provide you with optimal care, which includes your follow-up. Under all circumstances we always encourage you to contact your private physician who remains a resource for coordinating your care. When calling for follow-up care, please make the office aware that this follow-up is from your recent emergency room visit. If for any reason you are refused follow-up, please contact the [facility] Emergency Department at and asked to speak to the emergency department charge nurse. <Emely Valdivia E - Last Filed: 01/16/21 09:50> ED HPI GENERAL MEDICAL PROBLEM - General Source of Information: Reports: Patient History Limitations: Reports: No Limitations - History of Present Illness INITIAL COMMENTS - FREE TEXT/NARRATIVE: HISTORY AND PHYSICAL: History of present illness: Patient is a 35-year-old female who presents to the emergency room with complaints of abdominal and chest pain. She states yesterday she was lifting a heavy tote that hit her in the upper abdomen/mid sternum. She states her abdomen is sore and not relieved with her prescribed oxycodone. She also has been taking her Zofran, which has now relieved her nausea. This evening she started to have chest pressure which "scared me". She thought it was related to her chronic abdominal pain/injury with the tote and took an Lorazepam which "typically calms me down". States the chest and abdominal discomfort has not improved. Patient has a history of cirrhosis secondary to alcohol abuse, pancreatitis, hepatitis, and chronic abdominal pain. Patient reports she has not consumed alcohol since September 2020. Patient denies any fever, chills, headache, change in vision, syncope or near syncope. Denies any back pain, shortness of breath or cough. Denies any vomiting, diarrhea, constipation or dysuria. Has not noted any blood in urine or stool. Patient has been eating and drinking appropriately. Review of systems: As per history of present illness and below otherwise all systems reviewed and negative. Past medical history: As per history of present illness and as reviewed below otherwise noncontrib utory. Surgical history: As per history of present illness and as reviewed below otherwise noncontributory. Social history: See social history for further information Family history: As per history of present illness and as reviewed below otherwise noncontributory. Physical exam: General: Well developed and well nourished 35 year old female. Alert and orientated x 3. Nontoxic in appearance and in no acute distress. Vital signs are stable and have been reviewed by me. Nursing notes were reviewed. HEENT: Atraumatic, normocephalic, pupils equal and reactive bilaterally, negative for conjunctival pallor or scleral icterus, mucous membranes moist, trachea midline. No drooling or trismus noted. No meningeal signs. No hot potato voice noted. Lungs: Clear to auscultation bilaterally. No wheezes, rales, or rhonchi. Chest tender, pain is reproducible. Normal work of breathing, no accessory muscles used. Heart: S1S2, regular rate and rhythm without overt murmur, gallops, or rubs. No JVD. No peripheral edema Abdomen: Soft, nondistended, diffuse tenderness in all 4 quadrantes (upper quadrants moreseo). Normoactive bowel sounds. Negative for masses or costovertebral tenderness. Skin: Intact, warm, dry. No lesions or rashes noted. Hematologic: No petechiae or purpra. Mucosa appropriate color and normal nail bed color and refill. Extremities: Atraumatic, moves all extremities per self without difficulty or deficits, negative for cords or calf pain. Neurovascular unremarkable. Neuro: Awake, alert, oriented. Cranial nerves II through XII unremarkable. Cerebellum unremarkable. Motor and sensory unremarkable throughout. Exam nonfocal. Psychiatric: Mood and affect are appropriate. Normal thought process. Answering questions appropriately. Notes: *This patient was seen and evaluated during the 2019 SARS-CoV-2 novel coronavirus pandemic period. Community viral transmission is ongoing at time of this encounter and the emergency department is operating under pandemic response procedures. Patient states her chest pain has improved but continues to have "my usual abdominal pain". Will give a GI cocktail for additional pain. Will do a repeat Troponin at 4 hours from pain onset. VSS. Patient is in no acute distress. Repeat Troponin results are pending. Dr Finney is aware of this patient and has agreed to assume care of patient. Dr [facility]. Diagnostics: CBC, CMP, Lipase, UA, HCGU, CXR, EKG Therapeutics: IV fluids, ASA, morphine Impression: Abdominal pain Chest Pain Definitive disposition and diagnosis as appropriate pending reevaluation and review of above. Onset: Today chest area Pain Score (Numeric/FACES): 8 Past Medical History HEENT History: Reports: None Other HEENT History: Yellow sclera Cardiovascular History: Reports: None Respiratory History: Reports: Other (See Below) Other Respiratory History: Pluerisy Gastrointestinal History: Reports: Cirrhosis, Other (See Below) Other Gastrointestinal History: heartburn Genitourinary History: Reports: Other (See Below) Other Genitourinary History: yeast infection during [employer] History: Reports: Musculoskeletal History: Reports: Back Pain, Chronic Other Musculoskeletal History: hx herniated disc in lower back Neurological History: Reports: None Psychiatric History: Reports: Anxiety Insulin Pump Model and Physician Industrial: None Hematologic History: Reports: None Immunologic History: Reports: None Oncologic (Cancer) History: Reports: Cervix Dermatologic History: Reports: None - Infectious Disease History Infectious Disease History: Reports: Chicken Pox, Influenza, Novel Coronavirus - Past Surgical History Head Surgeries/Procedures: Reports: None HEENT Surgical History: Reports: Oral Surgery Other HEENT Surgeries/Procedures: teeth removed at 26 years of age wears dentures Respiratory Surgical History: Reports: None GI Surgical History: Reports: Other (See Below) Other GI Surgeries/Procedures: Weekly paracentesis in [place] Female Surgical History: Reports: None Musculoskeletal Surgical History: Reports: None Oncologic Surgical History: Reports: Other (See Below) Other Oncologic Surgeries/Procedures: LEEP Social & Family History - Family History Family Medical History: No Pertinent Family History HEENT: Reports: Cataract, Glaucoma, Impaired Vision Cardiac: Reports: CAD, High Cholesterol, Hypertension GI: Reports: Cholelithiasis, Hepatitis OBGYN: Reports: Endometriosis Musculoskeletal: Reports: Arthritis, Back pain, Chronic, Neck Pain, Chronic, Osteoarthritis, RA Neurological: Reports: Alzheimers Disease, Dementia, Parkinson's Psychiatric: Reports: ADD, ADHD, Anxiety, Depression, Emotional Problems, Learning Disability, Mood Swings, Panic Attack Endocrine/Metabolic: Reports: Diabetes, type II, Hyperthyroidism Oncologic: Reports: Leukemia - Caffeine Use Caffeine Use: Reports: None Course - Vital Signs Last Recorded V/S: Last Vital Signs Temp 98.0 F 01/16/21 00:30 Pulse 77 01/16/21 00:30 Resp 18 01/16/21 00:30 BP 107/53 L 01/16/21 00:30 Pulse Ox 98 01/16/21 00:30 - Orders/Labs/Meds Orders: Active Orders 24 hr Category Date Time Status Saline Lock Insert [OM.PC] Stat Oth 01/15/21 20:12 Ordered Labs: Laboratory Tests 01/15/21 01/15/21 01/15/21 Range/Units 20:43 20:43 20:46 WBC 4.49 (4.0-11.0) K/uL RBC 3.43 L (4.30-5.90) M/uL Hgb 10.5 L (12.0-16.0) g/dL Hct 32.1 L (36.0-46.0) % MCV 93.6 (80.0-98.0) fL MCH 30.6 (27.0-32.0) pg MCHC 32.7 (31.0-37.0) g/dL RDW Std Deviation 49.1 (28.0-62.0) fl RDW Coeff of Blue 14 (11.0-15.0) % Plt Count 218 (150-400) K/uL MPV 11.20 (7.40-12.00) fL Neut % (Auto) 55.9 (48.0-80.0) % Lymph % (Auto) 32.3 (16.0-40.0) % [place] % (Auto) 8.9 (0.0-15.0) % Eos % (Auto) 1.6 (0.0-7.0) % Baso % (Auto) 1.3 (0.0-1.5) % Neut # (Auto) 2.5 (1.4-5.7) K/uL Lymph # (Auto) 1.5 (0.6-2.4) K/uL [place] # (Auto) 0.4 (0.0-0.8) K/uL Eos # (Auto) 0.1 (0.0-0.7) K/uL Baso # (Auto) 0.1 (0.0-0.1) K/uL Nucleated RBC % 0.0 /100WBC Nucleated RBCs # 0 K/uL Sodium 142 (136-145) mmol/L Potassium 3.8 (3.5-5.1) mmol/L Chloride 106 (98-107) mmol/L Carbon Dioxide 25.5 (21.0-32.0) mmol/L BUN 5 L (7.0-18.0) mg/dL Creatinine 0.6 (0.6-1.0) mg/dL Est Cr Clr Drug Dosing 100.24 mL/min Estimated GFR (MDRD) > 60.0 ml/min Glucose 85 (74-106) mg/dL Calcium 8.4 L (8.5-10.1) mg/dL Total Bilirubin 0.5 (0.2-1.0) mg/dL AST 22 (15-37) IU/L ALT 17 (14-63) IU/L Alkaline Phosphatase 56 (46-116) U/L Troponin I < 0.050 (0.000-0.056) ng/mL Total Protein 6.9 (6.4-8.2) g/dL Albumin 2.9 L (3.4-5.0) g/dL Globulin 4.0 (2.6-4.0) g/dL Albumin/Globulin Ratio 0.7 L (0.9-1.6) Lipase 164 (73-393) U/L Urine Color YELLOW Urine Appearance HAZY Urine pH 5.5 (5.0-8.0) Ur Specific [place] 1.010 (1.001-1.035) Urine Protein NEGATIVE (NEGATIVE) mg/dL Urine Glucose (UA) NEGATIVE (NEGATIVE) mg/dL Urine Ketones NEGATIVE (NEGATIVE) mg/dL Urine Occult Blood LARGE H (NEGATIVE) Urine Nitrite NEGATIVE (NEGATIVE) Urine Bilirubin NEGATIVE (NEGATIVE) Urine Urobilinogen 0.2 (<2.0) EU/dL Ur Leukocyte Esterase NEGATIVE (NEGATIVE) Urine RBC 0-4 (0-2/HPF) Urine WBC 0-1 (0-5/HPF) Ur Epithelial Cells FEW (NONE-FEW) Urine Bacteria FEW (NEGATIVE) Urine HCG, Qual (NEGATIVE) 01/15/21 01/15/21 Range/Units 20:46 23:02 WBC (4.0-11.0) K/uL RBC (4.30-5.90) M/uL Hgb (12.0-16.0) g/dL Hct (36.0-46.0) % MCV (80.0-98.0) fL MCH (27.0-32.0) pg MCHC (31.0-37.0) g/dL RDW Std Deviation (28.0-62.0) fl RDW Coeff of Blue (11.0-15.0) % Plt Count (150-400) K/uL MPV (7.40-12.00) fL Neut % (Auto) (48.0-80.0) % Lymph % (Auto) (16.0-40.0) % [place] % (Auto) (0.0-15.0) % Eos % (Auto) (0.0-7.0) % Baso % (Auto) (0.0-1.5) % Neut # (Auto) (1.4-5.7) K/uL Lymph # (Auto) (0.6-2.4) K/uL [place] # (Auto) (0.0-0.8) K/uL Eos # (Auto) (0.0-0.7) K/uL Baso # (Auto) (0.0-0.1) K/uL Nucleated RBC % /100WBC Nucleated RBCs # K/uL Sodium (136-145) mmol/L Potassium (3.5-5.1) mmol/L Chloride (98-107) mmol/L Carbon Dioxide (21.0-32.0) mmol/L BUN (7.0-18.0) mg/dL Creatinine (0.6-1.0) mg/dL Est Cr Clr Drug Dosing mL/min Estimated GFR (MDRD) ml/min Glucose (74-106) mg/dL Calcium (8.5-10.1) mg/dL Total Bilirubin (0.2-1.0) mg/dL AST (15-37) IU/L ALT (14-63) IU/L Alkaline Phosphatase (46-116) U/L Troponin I < 0.050 (0.000-0.056) ng/mL Total Protein (6.4-8.2) g/dL Albumin (3.4-5.0) g/dL Globulin (2.6-4.0) g/dL Albumin/Globulin Ratio (0.9-1.6) Lipase (73-393) U/L Urine Color Urine Appearance Urine pH (5.0-8.0) Ur Specific [place] (1.001-1.035) Urine Protein (NEGATIVE) mg/dL Urine Glucose (UA) (NEGATIVE) mg/dL Urine Ketones (NEGATIVE) mg/dL Urine Occult Blood (NEGATIVE) Urine Nitrite (NEGATIVE) Urine Bilirubin (NEGATIVE) Urine Urobilinogen (<2.0) EU/dL Ur Leukocyte Esterase (NEGATIVE) Urine RBC (0-2/HPF) Urine WBC (0-5/HPF) Ur Epithelial Cells (NONE-FEW) Urine Bacteria (NEGATIVE) Urine HCG, Qual NEGATIVE (NEGATIVE) Meds: Medications Discontinued Medications Generic Name Dose Route Start Last Admin Trade Name Galoq PRN Reason Stop Dose Admin Aspirin 324 mg 01/15/21 20:21 01/15/21 20:35 Aspirin 81 Mg Tab.Chew PO 01/15/21 20:22 324 mg ONETIME ONE Administration Al Hydroxide/Mg Hydroxide 15 0 ml 01/15/21 21:36 01/15/21 21:53 ml/ Metoclopramide HCl 5 mg/ PO 01/15/21 21:37 25 each Lidocaine HCl 5 ml ONETIME ONE Administration Hydromorphone HCl 1 mg 01/16/21 00:05 01/16/21 00:15 Hydromorphone 1 Mg/Ml Syringe IVPUSH 01/16/21 00:06 1 mg ONETIME ONE Administration Sodium Chloride 1,000 mls @ 999 mls/hr 01/15/21 20:12 01/15/21 20:31 Normal Saline IV 01/15/21 21:12 999 mls/hr STAT ONE Administration Morphine Sulfate 4 mg 01/15/21 20:21 01/15/21 20:35 Morphine 4 Mg/Ml Syringe IVPUSH 01/15/21 20:22 4 mg ONETIME ONE Administration Oxycodone HCl 5 mg 01/15/21 22:21 01/15/21 22:46 Oxycodone 5 Mg Tab PO 01/15/21 22:22 5 mg ONETIME ONE Administration Pantoprazole Sodium 40 mg 01/15/21 22:22 01/15/21 22:46 Pantoprazole 40 Mg Tab.Cr PO 01/15/21 22:23 40 mg STAT STA Administration Sodium Chloride 10 ml 01/15/21 20:12 Sodium Chloride 0.9% 10 Ml Syringe FLUSH ASDIRECTED PRN Keep Vein Open Sodium Chloride 2.5 ml 01/15/21 20:12 Sodium Chloride 0.9% 2.5 Ml Syringe FLUSH ASDIRECTED PRN Keep Vein Open Sepsis Event Note (ED) - Focused Exam Vital Signs: Vital Signs Temp Pulse Resp BP Pulse Ox 01/16/21 00:30 98.0 F 77 18 107/53 L 98 01/15/21 21:55 86 18 103/68 100 - My Orders Last 24 Hours: My Active Orders 01/15/21 20:12 Saline Lock Insert [OM.PC] Stat - Assessment/Plan Last 24 Hours: My Active Orders 01/15/21 20:12 Saline Lock Insert [OM.PC] Stat
--- NOTE | 2021-01-15 20:17 | PCM.SN.2 ---
- Free Text/Narrative Note: EKG done at 2010 him with heart rate 85 and axis 60 Q waves in the anterior leads compared to 10/05/2020 no change impression no acute injury
[2021-01-15] MEDS ORDERED: Morphine 4 MG/ML Syringe IVPUSH ONE (20:21)
[2021-01-15] MEDS ORDERED: Aspirin 81 MG Tab.Chew PO ONE (20:21)
[2021-01-15 21:17] LABS: BLOOD UREA NITROGEN,BUN 5 mg/dL (7.0-18.0); CARBON DIOXIDE,CO2 25.5 mmol/L (21.0-32.0); CHLORIDE,CL 106 mmol/L (98-107); GLUCOSE RANDOM 85 mg/dL (74-106); LIPASE 164 U/L (73-393); POTASSIUM,K 3.8 mmol/L (3.5-5.1); SODIUM,NA 142 mmol/L (136-145)
[2021-01-15] MEDS ORDERED: Alum Hydrox/Mag Hydrox/Simeth 15 ML, Metoclopramide 5 MG, Lidocaine 2% 5 ML PO ONE ×3 (21:36)
[2021-01-15] MEDS ORDERED: oxyCODONE 5 MG Tab PO ONE (22:21)
[2021-01-15] MEDS ORDERED: Pantoprazole 40 MG Tab.CR PO STA (22:22)
--- NOTE | 2021-01-15 22:34 | CR ---
INDICATION: Chest pain TECHNIQUE: Chest radiograph 1 view COMPARISON: 09/19/2020 FINDINGS: Mediastinum: The mediastinum is normal in appearance. The heart silhouette is normal in size and morphology. Lung: Both lungs are unremarkable in appearance. No sign of pleural effusion seen. No pneumothorax is identified. Bone and Soft tissue: Unremarkable for age. IMPRESSION: 1. No acute cardiopulmonary disease is seen. Dictated by: Carlos Otero MD @ 01/15/2021 22:33:03 (Electronically Signed)
[2021-01-16] MEDS ORDERED: HYDROmorphone 1 MG/ML Syringe IVPUSH ONE (00:05)
== END 2021-01-16 00:36 | disposition home or self-care (01) ==
LOC: MW.ED 20:05
DX: R07.89 Other chest pain (principal); R10.12 Left upper quadrant pain; Z79.899 Other long term (current) drug therapy
CPT/HCPCS: 36415; 71045; 80053; 81001; 81025; 83690; 84484; 85025; 93005; 96374; 96375; 99285; A9270; J1170; J2270; J7030; 93010; 99284

== ENCOUNTER 2021-01-17 12:54 | Emergency (ER) | payer SELFPAY ==
[2021-01-17] MEDS ORDERED: Sodium Chloride 0.9% 1,000 ML IV ONE (13:23)
[2021-01-17] MEDS ORDERED: Ketorolac 15 MG/ML SDV IVPUSH ONE (13:23)
--- NOTE | 2021-01-17 13:29 | EDM.PDOC ---
ED HPI GENERAL MEDICAL PROBLEM - General Chief Complaint: Abdominal Pain Stated Complaint: PAIN FROM CIRROSIS RELATED ISSUES Time Seen by Provider: 01/17/21 13:02 Source of Information: Reports: Patient History Limitations: Reports: No Limitations - History of Present Illness INITIAL COMMENTS - FREE TEXT/NARRATIVE: Patient is a 35-year-old female who presents today for possible syncope. Patient has history of liver issues from drinking in the past. Patient states that while using the bathroom she stood up and felt lightheaded and passed out for which she has a few seconds. Patient did not have any confusion upon awaking. Patient also denied any shaking while she was past as well. Patient currently states she feels tired and fatigued. Patient denies any nausea or v omiting or diarrhea or urinary symptoms. Patient denied any chest pain or palpitations during the syncope episode. Right Upper Abdomen Pain Score (Numeric/FACES): 9 - Related Data Allergies Allergy/AdvReac Type Severity Reaction Status Date / Time No Known Allergies Allergy Verified 01/17/21 13:04 Home Meds: Home Meds Furosemide [Lasix] 20 mg PO DAILY tablet 11/17/20 [Rx] Lactulose 10 gm PO BID PRN 10 Days #1 bottle 11/17/20 [Rx] LORazepam [Ativan] 0.5 mg PO BID PRN 12/10/20 [History] Spironolactone [Aldactone] 50 mg PO DAILY 12/10/20 [History] oxyCODONE 5 mg PO DAILY PRN 12/10/20 [History] Omeprazole Magnesium [Prilosec Otc] 20 mg PO BID PRN 01/05/21 [History] Past Medical History HEENT History: Reports: None Other HEENT History: Yellow sclera Cardiovascular History: Reports: None Respiratory History: Reports: Other (See Below) Other Respiratory History: Pluerisy Gastrointestinal History: Reports: Cirrhosis, Other (See Below) Other Gastrointestinal History: heartburn Genitourinary History: Reports: Other (See Below) Other Genitourinary History: 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: Musculoskeletal History: Reports: Back Pain, Chronic Other Musculoskeletal History: hx herniated disc in lower back Neurological History: Reports: None Psychiatric History: Reports: Anxiety Endocrine/Metabolic History: Reports: None Insulin Pump Model and Coding File Clerk: None Hematologic History: Reports: None Immunologic History: Reports: None Oncologic (Cancer) History: Reports: Cervix Dermatologic History: Reports: None - Infectious Disease History Infectious Disease History: Reports: Chicken Pox, Influenza, Novel Coronavirus - Past Surgical History Head Surgeries/Procedures: Reports: None HEENT Surgical History: Reports: Oral Surgery Other HEENT Surgeries/Procedures: teeth removed at 26 years of age wears dentures Respiratory Surgical History: Reports: None GI Surgical History: Reports: Other (See Below) Other GI Surgeries/Procedures: Weekly paracentesis in [place] Female Surgical History: Reports: None Musculoskeletal Surgical History: Reports: None Oncologic Surgical History: Reports: Other (See Below) Other Oncologic Surgeries/Procedures: LEEP Social & Family History - Family History Family Medical History: No Pertinent Family History HEENT: Reports: Cataract, Glaucoma, Impaired Vision Cardiac: Reports: CAD, High Cholesterol, Hypertension GI: Reports: Cholelithiasis, Hepatitis OBGYN: Reports: Endometriosis Musculoskeletal: Reports: Arthritis, Back pain, Chronic, Neck Pain, Chronic, Osteoarthritis, RA Neurological: Reports: Alzheimers Disease, Dementia, Parkinson's Psychiatric: Reports: ADD, ADHD, Anxiety, Depression, Emotional Problems, Learning Disability, Mood Swings, Panic Attack Endocrine/Metabolic: Reports: Diabetes, type II, Hyperthyroidism Oncologic: Reports: Leukemia - Tobacco Use Tobacco Use Status *Q: Former Tobacco User Used Tobacco, but Quit: Yes Month/Year Tobacco Last Used: 12/2020 - Caffeine Use Caffeine Use: Reports: Soda - Recreational Drug Use Recreational Drug Use: No ED ROS GENERAL - Review of Systems Review Of Systems: See Below Constitutional: Reports: No Symptoms HEENT: Reports: No Symptoms Respiratory: Reports: No Symptoms Cardiovascular: Reports: Syncope Endocrine: Reports: No Symptoms GI/Abdominal: Reports: No Symptoms : Reports: No Symptoms Musculoskeletal: Reports: No Symptoms Skin: Reports: No Symptoms Neurological: Reports: No Symptoms Psychiatric: Reports: No Symptoms Hematologic/Lymphatic: Reports: No Symptoms Immunologic: Reports: No Symptoms ED EXAM, GI/ABD - Physical Exam Exam: See Below Exam Limited By: No Limitations General Appearance: Alert, WD/WN Eyes: Bilateral: EOMI Respiratory/Chest: No Respiratory Distress, Lungs Clear Cardiovascular: Normal Peripheral Pulses, Regular Rate, Rhythm GI/Abdominal Exam: Normal Bowel Sounds, Soft, No Distention Neurological: Alert, Oriented, Normal Cognition, Normal Gait #1 Interpretation EKG Date: 01/17/21 Time: 13:55 Rhythm: NSR Rate (Beats/Min): 84 ST-T: Normal Course - Vital Signs Last Recorded V/S: Last Vital Signs Temp 96.9 F 01/17/21 13:06 Pulse 95 01/17/21 13:06 Resp 18 01/17/21 13:06 BP 96/62 01/17/21 13:06 Pulse Ox 100 01/17/21 13:06 - Orders/Labs/Meds Orders: Active Orders 24 hr Category Date Time Status EKG 12 Lead [EKG Documentation Completion] [RC] STAT Care 01/17/21 13:29 Active Labs: Laboratory Tests 01/17/21 01/17/21 01/17/21 Range/Units 13:40 13:50 13:50 WBC 3.83 L (4.0-11.0) K/uL RBC 3.59 L (4.30-5.90) M/uL Hgb 11.0 L (12.0-16.0) g/dL Hct 33.9 L (36.0-46.0) % MCV 94.4 (80.0-98.0) fL MCH 30.6 (27.0-32.0) pg MCHC 32.4 (31.0-37.0) g/dL RDW Std Deviation 49.4 (28.0-62.0) fl RDW Coeff of Blue 14 (11.0-15.0) % Plt Count 222 (150-400) K/uL MPV 11.10 (7.40-12.00) fL Neut % (Auto) 58.3 (48.0-80.0) % Lymph % (Auto) 29.2 (16.0-40.0) % [place] % (Auto) 9.9 (0.0-15.0) % Eos % (Auto) 1.6 (0.0-7.0) % Baso % (Auto) 1.0 (0.0-1.5) % Neut # (Auto) 2.2 (1.4-5.7) K/uL Lymph # (Auto) 1.1 (0.6-2.4) K/uL [place] # (Auto) 0.4 (0.0-0.8) K/uL Eos # (Auto) 0.1 (0.0-0.7) K/uL Baso # (Auto) 0.0 (0.0-0.1) K/uL Nucleated RBC % 0.0 /100WBC Nucleated RBCs # 0 K/uL Lactate 1.3 (0.20-2.00) mmol/L Sodium (136-145) mmol/L Potassium (3.5-5.1) mmol/L Chloride (98-107) mmol/L Carbon Dioxide (21.0-32.0) mmol/L BUN (7.0-18.0) mg/dL Creatinine (0.6-1.0) mg/dL Est Cr Clr Drug Dosing mL/min Estimated GFR (MDRD) ml/min Glucose (74-106) mg/dL Calcium (8.5-10.1) mg/dL Total Bilirubin (0.2-1.0) mg/dL AST (15-37) IU/L ALT (14-63) IU/L Alkaline Phosphatase (46-116) U/L Creatine Kinase (26-308) U/L Troponin I (0.000-0.056) ng/mL Total Protein (6.4-8.2) g/dL Albumin (3.4-5.0) g/dL Globulin (2.6-4.0) g/dL Albumin/Globulin Ratio (0.9-1.6) Urine HCG, Qual NEGATIVE (NEGATIVE) 01/17/21 Range/Units 13:50 WBC (4.0-11.0) K/uL RBC (4.30-5.90) M/uL Hgb (12.0-16.0) g/dL Hct (36.0-46.0) % MCV (80.0-98.0) fL MCH (27.0-32.0) pg MCHC (31.0-37.0) g/dL RDW Std Deviation (28.0-62.0) fl RDW Coeff of Blue (11.0-15.0) % Plt Count (150-400) K/uL MPV (7.40-12.00) fL Neut % (Auto) (48.0-80.0) % Lymph % (Auto) (16.0-40.0) % [place] % (Auto) (0.0-15.0) % Eos % (Auto) (0.0-7.0) % Baso % (Auto) (0.0-1.5) % Neut # (Auto) (1.4-5.7) K/uL Lymph # (Auto) (0.6-2.4) K/uL [place] # (Auto) (0.0-0.8) K/uL Eos # (Auto) (0.0-0.7) K/uL Baso # (Auto) (0.0-0.1) K/uL Nucleated RBC % /100WBC Nucleated RBCs # K/uL Lactate (0.20-2.00) mmol/L Sodium 142 (136-145) mmol/L Potassium 4.2 (3.5-5.1) mmol/L Chloride 107 (98-107) mmol/L Carbon Dioxide 27.0 (21.0-32.0) mmol/L BUN 6 L (7.0-18.0) mg/dL Creatinine 0.8 (0.6-1.0) mg/dL Est Cr Clr Drug Dosing 3.57 mL/min Estimated GFR (MDRD) > 60.0 ml/min Glucose 84 (74-106) mg/dL Calcium 9.0 (8.5-10.1) mg/dL Total Bilirubin 0.4 (0.2-1.0) mg/dL AST 22 (15-37) IU/L ALT 17 (14-63) IU/L Alkaline Phosphatase 56 (46-116) U/L Creatine Kinase 31 (26-308) U/L Troponin I < 0.050 (0.000-0.056) ng/mL Total Protein 7.0 (6.4-8.2) g/dL Albumin 3.1 L (3.4-5.0) g/dL Globulin 3.9 (2.6-4.0) g/dL Albumin/Globulin Ratio 0.8 L (0.9-1.6) Urine HCG, Qual (NEGATIVE) Meds: Medications Discontinued Medications Generic Name Dose Route Start Last Admin Trade Name Freq PRN Reason Stop Dose Admin Sodium Chloride 1,000 mls @ 999 mls/hr 01/17/21 13:23 01/17/21 13:36 Normal Saline IV 01/17/21 14:23 999 mls/hr .BOLUS ONE Administration Ketorolac Tromethamine 15 mg 01/17/21 13:23 01/17/21 13:36 Ketorolac 15 Mg/Ml Sdv IVPUSH 01/17/21 13:24 15 mg ONETIME ONE Administration - Re-Assessments/Exams Free Text/Narrative Re-Assessment/Exam: 01/17/21 15:03 Patient presented today for syncope we performed EKG and troponins. Everything seems to be at his baseline. Patient will be discharged home to follow-up with primary care physician. Departure - Departure Time of Disposition: 15:09 Disposition: Home, Self-Care 01 Condition: Good Clinical Impression: Syncope - Discharge Information *PRESCRIPTION DRUG MONITORING PROGRAM REVIEWED*: Not Applicable *COPY OF PRESCRIPTION DRUG MONITORING REPORT IN PATIENT TATE: Not Applicable Instructions: Abdominal Pain, Adult, [id number] Referrals: PCP,None [Primary Care Provider] - Forms: ED Department Discharge Additional Instructions: The following information is given to patients seen in the emergency department who are being discharged to home. This information is to outline your options for follow-up care. We provide all patients seen in our emergency department with a follow-up referral. The need for follow-up, as well as the timing and circumstances, are variable depending upon the specifics of your emergency department visit. If you don't have a primary care physician on staff, we will provide you with a referral. We always advise you to contact your personal physician following an emergency department visit to inform them of the circumstance of the visit and for follow-up with them and/or the need for any referrals to a consulting specialist. The emergency department will also refer you to a specialist when appropriate. This referral assures that you have the opportunity for follow-up care with a specialist. All of these measure are taken in an effort to provide you with optimal care, which includes your follow-up. Under all circumstances we always encourage you to contact your private physician who remains a resource for coordinating your care. When calling for follow-up care, please make the office aware that this follow-up is from your recent emergency room visit. If for any reason you are refused follow-up, please contact the [facility] Emergency Department at and asked to speak to the emergency department charge nurse. Please follow up with your primary care physician. If you do not have a primary care physician, see below: [facility] [address] [place], [place] [address] My [facility] [address], [place] [id number] [facility] [address] [place] [address] But was a number for primary care physicians and also engagement director. We worked up for syncope we did EKGs that was normal as well as labs. We recommend you follow-up if continue to have symptoms with cardiology. If you have any acute symptoms please return to the ED immediately. Sepsis Event Note (ED) - Evaluation Sepsis Screening Result: No Definite Risk - Focused Exam Vital Signs: Vital Signs Temp Pulse Resp BP Pulse Ox 01/17/21 13:06 96.9 F 95 18 96/62 100 - My Orders Last 24 Hours: My Active Orders 01/17/21 13:29 EKG 12 Lead [EKG Documentation Completion] [RC] STAT - Assessment/Plan Last 24 Hours: My Active Orders 01/17/21 13:29 EKG 12 Lead [EKG Documentation Completion] [RC] STAT Plan: Robbie is a 35-year-old female presents today for syncope episode. Patient also complains of abdominal pain she has chronic abdominal pain in the past 6 oxycodone for it as well. Will obtain EKG x-ray troponins reassess.
[2021-01-17 14:40] LABS: BLOOD UREA NITROGEN,BUN 6 mg/dL (7.0-18.0); CHLORIDE,CL 107 mmol/L (98-107); GLUCOSE RANDOM 84 mg/dL (74-106); POTASSIUM,K 4.2 mmol/L (3.5-5.1); SODIUM,NA 142 mmol/L (136-145)
== END 2021-01-17 15:41 | disposition home or self-care (01) ==
LOC: MW.ED 12:54
DX: R55 Syncope and collapse (principal); Z87.891 Personal history of nicotine dependence
CPT/HCPCS: 36415; 80053; 81025; 82550; 83605; 84484; 85025; 93005; 96374; 99284; J1885; J7030

== ENCOUNTER 2021-01-23 15:01 | Emergency (ER) | payer SELFPAY ==
[2021-01-23] MEDS ORDERED: HYDROmorphone 1 MG/ML Syringe IM ONE (15:56)
--- NOTE | 2021-01-23 16:00 | EDM.PDOC ---
ED HPI GENERAL MEDICAL PROBLEM - General Chief Complaint: Abdominal Pain Stated Complaint: PAIN IN ABDOMEN Time Seen by Provider: 01/23/21 15:20 Source of Information: Reports: Patient History Limitations: Reports: No Limitations - History of Present Illness INITIAL COMMENTS - FREE TEXT/NARRATIVE: Patient is a 35-year-old female who presents today for abdominal pain. Patient has been to the ED multiple times for the similar complaint in the past. Of solids well. Patient states she has liver issues and is scheduled to have some liver intervention possible transplant but she tells me she is scheduled for. Patient states that her liver doctors in my not. Patient that she takes chronic pain meds such as a oxycodone with recent increase to 10 mg. Patient dates it is not helping with her liver pain. Patient also reports some possible liver something heavy at work and may be aggravated her pain. Patient reports nausea vomiting diarrhea as well. Abdomen Pain Score (Numeric/FACES): 10 - Related Data Allergies Allergy/AdvReac Type Severity Reaction Status Date / Time No Known Allergies Allergy Verified 01/23/21 15:13 Home Meds: Home Meds Furosemide [Lasix] 20 mg PO DAILY tablet 11/17/20 [Rx] Lactulose 10 gm PO BID PRN 10 Days #1 bottle 11/17/20 [Rx] LORazepam [Ativan] 0.5 mg PO BID PRN 12/10/20 [History] Spironolactone [Aldactone] 50 mg PO DAILY 12/10/20 [History] oxyCODONE 5 mg PO DAILY PRN 12/10/20 [History] Omeprazole Magnesium [Prilosec Otc] 20 mg PO BID PRN 01/05/21 [History] Past Medical History HEENT History: Reports: None Other HEENT History: Yellow sclera Cardiovascular History: Reports: None Respiratory History: Reports: Other (See Below) Other Respiratory History: Pluerisy Gastrointestinal History: Reports: Cirrhosis, Other (See Below) Other Gastrointestinal History: heartburn Genitourinary History: Reports: Other (See Below) Other Genitourinary History: yeast infection during [employer] History: Reports: Musculoskeletal History: Reports: Back Pain, Chronic Other Musculoskeletal History: hx herniated disc in lower back Neurological History: Reports: None Psychiatric History: Reports: Anxiety Endocrine/Metabolic History: Reports: None Insulin Pump Model and Crystal Grinder: None Hematologic History: Reports: None Immunologic History: Reports: None Oncologic (Cancer) History: Reports: Cervix Dermatologic History: Reports: None - Infectious Disease History Infectious Disease History: Reports: Chicken Pox, Influenza, Novel Coronavirus - Past Surgical History Head Surgeries/Procedures: Reports: None HEENT Surgical History: Reports: Oral Surgery Other HEENT Surgeries/Procedures: teeth removed at 26 years of age wears dentures Respiratory Surgical History: Reports: None GI Surgical History: Reports: Other (See Below) Other GI Surgeries/Procedures: Weekly paracentesis in [place] Female Surgical History: Reports: None Musculoskeletal Surgical History: Reports: None Oncologic Surgical History: Reports: Other (See Below) Other Oncologic Surgeries/Procedures: LEEP Social & Family History - Family History Family Medical History: No Pertinent Family History HEENT: Reports: Cataract, Glaucoma, Impaired Vision Cardiac: Reports: CAD, High Cholesterol, Hypertension GI: Reports: Cholelithiasis, Hepatitis OBGYN: Reports: Endometriosis Musculoskeletal: Reports: Arthritis, Back pain, Chronic, Neck Pain, Chronic, Osteoarthritis, RA Neurological: Reports: Alzheimers Disease, Dementia, Parkinson's Psychiatric: Reports: ADD, ADHD, Anxiety, Depression, Emotional Problems, Learning Disability, Mood Swings, Panic Attack Endocrine/Metabolic: Reports: Diabetes, type II, Hyperthyroidism Oncologic: Reports: Leukemia - Tobacco Use Tobacco Use Status *Q: Never Tobacco User - Caffeine Use Caffeine Use: Reports: None - Recreational Drug Use Recreational Drug Use: No ED ROS GENERAL - Review of Systems Review Of Systems: See Below Constitutional: Reports: No Symptoms HEENT: Reports: No Symptoms Respiratory: Reports: No Symptoms Cardiovascular: Reports: No Symptoms Endocrine: Reports: No Symptoms GI/Abdominal: Reports: Abdominal Pain : Reports: No Symptoms Musculoskeletal: Reports: No Symptoms Skin: Reports: No Symptoms Neurological: Reports: No Symptoms Psychiatric: Reports: No Symptoms Hematologic/Lymphatic: Reports: No Symptoms Immunologic: Reports: No Symptoms ED EXAM, GI/ABD - Physical Exam Exam: See Below Exam Limited By: No Limitations General Appearance: Alert, WD/WN Respiratory/Chest: No Respiratory Distress Cardiovascular: Normal Peripheral Pulses, Regular Rate, Rhythm GI/Abdominal Exam: Soft, Tender Neurological: Alert, Oriented Course - Vital Signs Last Recorded V/S: Last Vital Signs Temp 96.8 F L 01/23/21 15:14 Pulse 111 H 01/23/21 15:14 Resp 18 01/23/21 15:14 BP 105/56 L 01/23/21 15:14 Pulse Ox 100 01/23/21 15:14 - Orders/Labs/Meds Labs: Laboratory Tests 01/23/21 01/23/21 01/23/21 Range/Units 16:10 16:10 16:26 WBC 4.31 (4.0-11.0) K/uL RBC 3.59 L (4.30-5.90) M/uL Hgb 10.9 L (12.0-16.0) g/dL Hct 33.4 L (36.0-46.0) % MCV 93.0 (80.0-98.0) fL MCH 30.4 (27.0-32.0) pg MCHC 32.6 (31.0-37.0) g/dL RDW Std Deviation 47.6 (28.0-62.0) fl RDW Coeff of Blue 14 (11.0-15.0) % Plt Count 263 (150-400) K/uL MPV 11.10 (7.40-12.00) fL Neut % (Auto) 50.4 (48.0-80.0) % Lymph % (Auto) 33.6 (16.0-40.0) % [place] % (Auto) 9.3 (0.0-15.0) % Eos % (Auto) 6.0 (0.0-7.0) % Baso % (Auto) 0.7 (0.0-1.5) % Neut # (Auto) 2.2 (1.4-5.7) K/uL Lymph # (Auto) 1.5 (0.6-2.4) K/uL [place] # (Auto) 0.4 (0.0-0.8) K/uL Eos # (Auto) 0.3 (0.0-0.7) K/uL Baso # (Auto) 0.0 (0.0-0.1) K/uL Nucleated RBC % 0.0 /100WBC Nucleated RBCs # 0 K/uL Sodium (136-145) mmol/L Potassium (3.5-5.1) mmol/L Chloride (98-107) mmol/L Carbon Dioxide (21.0-32.0) mmol/L BUN (7.0-18.0) mg/dL Creatinine (0.6-1.0) mg/dL Est Cr Clr Drug Dosing mL/min Estimated GFR (MDRD) ml/min Glucose (74-106) mg/dL Calcium (8.5-10.1) mg/dL Total Bilirubin (0.2-1.0) mg/dL AST (15-37) IU/L ALT (14-63) IU/L Alkaline Phosphatase (46-116) U/L Total Protein (6.4-8.2) g/dL Albumin (3.4-5.0) g/dL Globulin (2.6-4.0) g/dL Albumin/Globulin Ratio (0.9-1.6) Urine Color YELLOW Urine Appearance CLEAR Urine pH 6.0 (5.0-8.0) Ur Specific [place] 1.010 (1.001-1.035) Urine Protein NEGATIVE (NEGATIVE) mg/dL Urine Glucose (UA) NEGATIVE (NEGATIVE) mg/dL Urine Ketones NEGATIVE (NEGATIVE) mg/dL Urine Occult Blood NEGATIVE (NEGATIVE) Urine Nitrite NEGATIVE (NEGATIVE) Urine Bilirubin NEGATIVE (NEGATIVE) Urine Urobilinogen 0.2 (<2.0) EU/dL Ur Leukocyte Esterase NEGATIVE (NEGATIVE) Urine Opiates Screen NEGATIVE (NEGATIVE) Ur Oxycodone Screen POSITIVE (NEGATIVE) Urine Methadone Screen NEGATIVE (NEGATIVE) Ur Barbiturates Screen NEGATIVE (NEGATIVE) Ur Phencyclidine Scrn NEGATIVE (NEGATIVE) Ur Amphetamine Screen NEGATIVE (NEGATIVE) U Methamphetamines Scrn NEGATIVE (NEGATIVE) U Benzodiazepines Scrn POSITIVE (NEGATIVE) U Cocaine Metab Screen NEGATIVE (NEGATIVE) U Marijuana (THC) Screen NEGATIVE (NEGATIVE) 01/23/21 Range/Units 16:26 WBC (4.0-11.0) K/uL RBC (4.30-5.90) M/uL Hgb (12.0-16.0) g/dL Hct (36.0-46.0) % MCV (80.0-98.0) fL MCH (27.0-32.0) pg MCHC (31.0-37.0) g/dL RDW Std Deviation (28.0-62.0) fl RDW Coeff of Blue (11.0-15.0) % Plt Count (150-400) K/uL MPV (7.40-12.00) fL Neut % (Auto) (48.0-80.0) % Lymph % (Auto) (16.0-40.0) % [place] % (Auto) (0.0-15.0) % Eos % (Auto) (0.0-7.0) % Baso % (Auto) (0.0-1.5) % Neut # (Auto) (1.4-5.7) K/uL Lymph # (Auto) (0.6-2.4) K/uL [place] # (Auto) (0.0-0.8) K/uL Eos # (Auto) (0.0-0.7) K/uL Baso # (Auto) (0.0-0.1) K/uL Nucleated RBC % /100WBC Nucleated RBCs # K/uL Sodium 139 (136-145) mmol/L Potassium 3.7 (3.5-5.1) mmol/L Chloride 102 (98-107) mmol/L Carbon Dioxide 31.5 (21.0-32.0) mmol/L BUN 7 (7.0-18.0) mg/dL Creatinine 0.8 (0.6-1.0) mg/dL Est Cr Clr Drug Dosing 75.88 mL/min Estimated GFR (MDRD) > 60.0 ml/min Glucose 83 (74-106) mg/dL Calcium 9.2 (8.5-10.1) mg/dL Total Bilirubin 0.2 (0.2-1.0) mg/dL AST 17 (15-37) IU/L ALT 19 (14-63) IU/L Alkaline Phosphatase 77 (46-116) U/L Total Protein 7.3 (6.4-8.2) g/dL Albumin 3.1 L (3.4-5.0) g/dL Globulin 4.2 H (2.6-4.0) g/dL Albumin/Globulin Ratio 0.7 L (0.9-1.6) Urine Color Urine Appearance Urine pH (5.0-8.0) Ur Specific [place] (1.001-1.035) Urine Protein (NEGATIVE) mg/dL Urine Glucose (UA) (NEGATIVE) mg/dL Urine Ketones (NEGATIVE) mg/dL Urine Occult Blood (NEGATIVE) Urine Nitrite (NEGATIVE) Urine Bilirubin (NEGATIVE) Urine Urobilinogen (<2.0) EU/dL Ur Leukocyte Esterase (NEGATIVE) Urine Opiates Screen (NEGATIVE) Ur Oxycodone Screen (NEGATIVE) Urine Methadone Screen (NEGATIVE) Ur Barbiturates Screen (NEGATIVE) Ur Phencyclidine Scrn (NEGATIVE) Ur Amphetamine Screen (NEGATIVE) U Methamphetamines Scrn (NEGATIVE) U Benzodiazepines Scrn (NEGATIVE) U Cocaine Metab Screen (NEGATIVE) U Marijuana (THC) Screen (NEGATIVE) Meds: Medications Discontinued Medications Generic Name Dose Route Start Last Admin Trade Name Freq PRN Reason Stop Dose Admin Hydromorphone HCl 1 mg 01/23/21 15:56 01/23/21 16:09 Hydromorphone 1 Mg/Ml Syringe IM 01/23/21 15:57 1 mg ONETIME ONE Administration Ondansetron HCl 4 mg 01/23/21 16:39 01/23/21 16:47 Ondansetron 4 Mg Tab.Dis PO 01/23/21 16:40 4 mg ONETIME ONE Administration Departure - Departure Time of Disposition: 17:24 Disposition: Home, Self-Care 01 Clinical Impression: Abdominal pain Qualifiers: Abdominal location: left upper quadrant Qualified Code(s): R10.12 - Left upper quadrant pain - Discharge Information *PRESCRIPTION DRUG MONITORING PROGRAM REVIEWED*: Not Applicable *COPY OF PRESCRIPTION DRUG MONITORING REPORT IN PATIENT TATE: Not Applicable Instructions: Abdominal Pain, Adult, [id number] Referrals: Carlin Mansfield MD [Primary Care Provider] - Forms: ED Department Discharge Additional Instructions: The following information is given to patients seen in the emergency department who are being discharged to home. This information is to outline your options for follow-up care. We provide all patients seen in our emergency department with a follow-up referral. The need for follow-up, as well as the timing and circumstances, are variable depending upon the specifics of your emergency department visit. If you don't have a primary care physician on staff, we will provide you with a referral. We always advise you to contact your personal physician following an emergency department visit to inform them of the circumstance of the visit and for follow-up with them and/or the need for any referrals to a consulting specialist. The emergency department will also refer you to a specialist when appropriate. This referral assures that you have the opportunity for follow-up care with a specialist. All of these measure are taken in an effort to provide you with optimal care, which includes your follow-up. Under all circumstances we always encourage you to contact your private physician who remains a resource for coordinating your care. When calling for follow-up care, please make the office aware that this follow-up is from your recent emergency room visit. If for any reason you are refused follow-up, please contact the [facility] Emergency Department at and asked to speak to the emergency department charge nurse. Please follow up with your primary care physician. If you do not have a primary care physician, see below: [facility] [address] [place] [id number] My [facility] [address] [place] [address] Follow-up to primary care physician. We reviewed your previous charts and then your CT scan there is no stones or signs of liver damage. Your liver enzymes are completely normal. We have no source of your liver pain please follow-up with your primary care physician for pain control. Sepsis Event Note (ED) - Evaluation Sepsis Screening Result: No Definite Risk - Focused Exam Vital Signs: Vital Signs Temp Pulse Resp BP Pulse Ox 01/23/21 15:14 96.8 F L 111 H 18 105/56 L 100 - Assessment/Plan Plan: Is a 35-year-old female who presents today for abdominal pain. Patient that she has chronic abdominal pain is right working with some heavy that may aggravate the pain. On exam patient abdomen is tender have resting patient multiple times in patches multiple scans in the past as well seems to be similar to her chronic pain. Patient is crying at bedside. We will attempt to relieve patient's pain and have her follow-up with primary care.
[2021-01-23] MEDS ORDERED: Ondansetron 4 MG Tab.DIS PO ONE (16:39)
[2021-01-23 17:17] LABS: BLOOD UREA NITROGEN,BUN 7 mg/dL (7.0-18.0); CARBON DIOXIDE,CO2 31.5 mmol/L (21.0-32.0); CHLORIDE,CL 102 mmol/L (98-107); GLUCOSE RANDOM 83 mg/dL (74-106); POTASSIUM,K 3.7 mmol/L (3.5-5.1); SODIUM,NA 139 mmol/L (136-145)
== END 2021-01-23 17:33 | disposition home or self-care (01) ==
LOC: MW.ED 15:01
DX: R10.12 Left upper quadrant pain (principal); G89.29 Other chronic pain; R11.2 Nausea with vomiting, unspecified; R19.7 Diarrhea, unspecified
CPT/HCPCS: 36415; 80053; 80305; 81003; 85025; 96372; 99284; A9270; J1170; 99282

== ENCOUNTER 2021-01-24 20:27 | Emergency (ER) | payer OTHER, BC ==
--- NOTE | 2021-01-24 21:34 | CT ---
INDICATION: Head trauma. Neck pain. TECHNIQUE: Noncontrast head CT. FINDINGS: No intracranial hemorrhage or hydrocephalus. No mass effect or shift of midline structures. No evidence for ischemic change or infarction. The bean-white matter differentiation is preserved. No calvarial or skullbase fracture. Included paranasal sinuses and mastoid air cells are clear. The temporomandibular joints are symmetric and intact. IMPRESSION: Negative noncontrast head CT. Please note that all CT scans at this facility use dose modulation, iterative reconstruction, and/or weight-based dosing when appropriate to reduce radiation dose to as low as reasonably achievable. Dictated by Kleber Nance MD @ Jan 24 2021 9:33PM Signed by Dr. Kleber Nance @ Jan 24 2021 9:33PM
[2021-01-24] MEDS ORDERED: traMADol 50 MG Tab PO ONE (21:53)
[2021-01-24] MEDS ORDERED: Ibuprofen 600 MG Tab PO ONE (21:53)
--- NOTE | 2021-01-24 21:53 | EDM.PDOC ---
ED HPI GENERAL MEDICAL PROBLEM - General Chief Complaint: Head Injury Stated Complaint: FELL AT WORK, HIT HEAD AND PASSED OUT Time Seen by Provider: 01/24/21 20:55 - History of Present Illness INITIAL COMMENTS - FREE TEXT/NARRATIVE: HISTORY AND PHYSICAL: History of present illness: This is a 35-year-old female with a history significant for end-stage liver disease, pancreatitis, history of alcohol use disorder, who presents ER today secondary to slip and fall while she was in the bathroom try to pull up her pants after urinating. Patient reports that she believes she slipped backwards and hit her head on the back of the toilet and had a positive LOC for an unclear amount of time. Patient presents ER today complaining of pain to her right lower back neck and head. Patient denies any recent fevers, shakes, chills, na usea, vomiting, diarrhea, dysuria, frequency, urgency, chest pain, shortness of breath. Patient denies any bleeding. Patient reports that this happened while she was working at [employer]. Review of systems: As per history of present illness and below otherwise all systems reviewed and negative. Past medical history: As per history of present illness and as reviewed below otherwise noncontribut ory. Surgical history: As per history of present illness and as reviewed below otherwise noncontributory. Social history: No reported history of drug or alcohol abuse. Family history: As per history of present illness and as reviewed below otherwise noncontributory. Physical exam: This patient was seen and evaluated during the 2019 SARS-CoV-2 novel coronavirus pandemic period. Community viral transmission is ongoing at time of this encounter and the emergency department is operating under pandemic response procedures. Constitutional: Patient is oriented to person, place, and time. Appears well- developed and well-nourished. No distress. HEENT: Moist mucous membranes Head: Normocephalic and atraumatic Eyes: Right eye exhibits no discharge. Left eye exhibits no discharge. No scleral icterus Neck: Normal range of motion. No tracheal deviation present. Cardiovascular: Normal rate and regular rhythm. Pulmonary: Effort normal, no respiratory distress. Abdominal: No distention Musculoskeletal: Normal range of motion Neurologic: Alert and oriented to person, place and time. Skin: [place], warm and dry. Psychiatric: Normal mood and affect. Behavior is normal. Judgment and thought content normal. Nursing note and vital signs have been reviewed Patient has no C-spine T-spine or L-spine tenderness to palpation. Patient has no left upper or right upper quadrant tenderness to palpation. Patient has no crepitus to palpation to the anterior chest wall. Patient is neurologically intact. Patient does not present with any signs or or symptoms that would be consistent with acute intracranial, intra-abdominal, intrathoracic, or long bone injury. All long bones have been palpated and range of motion been performed and there is no evidence of any acute pathology. Patient does have tenderness to palpation to her posterior scalp as well as tenderness palpation to her right and left lateral neck. Patient has tenderness palpation to her right flank region with no evidence of any bruising or soft tissue swelling or crepitance. Diagnostics: CT head and C-spine: No acute fracture or dislocation. Urinalysis normal without any evidence of hematuria. Assessment and plan: This is a 35-year-old female who presents ER today secondary to head injury with positive LOC after falling and hitting the back of her head. Patient have a CT scan of her head and C-spine to assess for any possibility of cervical spine injury or intracranial pathology. Patient's urinalysis revealed no evidence of hematuria. Patient does have flank pain and has been given adequate analgesia here in the ED. Patient is clinically and hemodynamic stable. CT scan is negative patient will likely be discharged home with outpatient follow-up. Patient is refusing ibuprofen and Ultram. Patient be discharged home with instructions to follow-up with Workmen's Comp. or her PCP for further evaluation. Reassessment at the time of disposition demonstrates that the patient is in no acute distress. The patient has remained stable throughout the entire ED visit and is without objective evidence for acute process requiring urgent intervention or hospitalization. The patient is stable for discharge, counseling is provided as documented above, discussed symptomatic treatment and specific conditions for return. I have spoken with the patient/caregiver and discussed todays findings, in addition to providing specific details for the plan of care. Questions are answered and there is agreement with the plan. Definitive disposition and diagnosis as appropriate pending reevaluation and review of above. Head Pain Score (Numeric/FACES): 8 - Related Data Allergies Allergy/AdvReac Type Severity Reaction Status Date / Time No Known Allergies Allergy Verified 01/24/21 20:43 Home Meds: Home Meds Furosemide [Lasix] 20 mg PO DAILY tablet 11/17/20 [Rx] Lactulose 10 gm PO BID PRN 10 Days #1 bottle 11/17/20 [Rx] LORazepam [Ativan] 0.5 mg PO BID PRN 12/10/20 [History] Spironolactone [Aldactone] 50 mg PO DAILY 12/10/20 [History] oxyCODONE 5 mg PO DAILY PRN 12/10/20 [History] Omeprazole Magnesium [Prilosec Otc] 20 mg PO BID PRN 01/05/21 [History] Past Medical History HEENT History: Reports: None Other HEENT History: Yellow sclera Cardiovascular History: Reports: None Respiratory History: Reports: Other (See Below) Other Respiratory History: Pluerisy Gastrointestinal History: Reports: Cirrhosis, Other (See Below) Other Gastrointestinal History: heartburn Genitourinary History: Reports: Other (See Below) Other Genitourinary History: yeast infection during [employer] History: Reports: Musculoskeletal History: Reports: Back Pain, Chronic Other Musculoskeletal History: hx herniated disc in lower back Neurological History: Reports: None Psychiatric History: Reports: Anxiety Endocrine/Metabolic History: Reports: None Insulin Pump Model and Copra Processor: None Hematologic History: Reports: None Immunologic History: Reports: None Oncologic (Cancer) History: Reports: Cervix Dermatologic History: Reports: None - Infectious Disease History Infectious Disease History: Reports: Chicken Pox, Influenza, Novel Coronavirus - Past Surgical History Head Surgeries/Procedures: Reports: None HEENT Surgical History: Reports: Oral Surgery Other HEENT Surgeries/Procedures: teeth removed at 26 years of age wears dentures Respiratory Surgical History: Reports: None GI Surgical History: Reports: Other (See Below) Other GI Surgeries/Procedures: Weekly paracentesis in [facility] Female Surgical History: Reports: None Musculoskeletal Surgical History: Reports: None Oncologic Surgical History: Reports: Other (See Below) Other Oncologic Surgeries/Procedures: LEEP Social & Family History - Family History Family Medical History: No Pertinent Family History HEENT: Reports: Cataract, Glaucoma, Impaired Vision Cardiac: Reports: CAD, High Cholesterol, Hypertension GI: Reports: Cholelithiasis, Hepatitis OBGYN: Reports: Endometriosis Musculoskeletal: Reports: Arthritis, Back pain, Chronic, Neck Pain, Chronic, Osteoarthritis, RA Neurological: Reports: Alzheimers Disease, Dementia, Parkinson's Psychiatric: Reports: ADD, ADHD, Anxiety, Depression, Emotional Problems, Learning Disability, Mood Swings, Panic Attack Endocrine/Metabolic: Reports: Diabetes, type II, Hyperthyroidism Oncologic: Reports: Leukemia - Tobacco Use Tobacco Use Status *Q: Never Tobacco User - Caffeine Use Caffeine Use: Reports: None - Recreational Drug Use Recreational Drug Use: No ED ROS GENERAL - Review of Systems Review Of Systems: See Below ED EXAM, HEAD INJURY - Physical Exam Exam: See Below Course - Vital Signs Last Recorded V/S: Last Vital Signs Temp 98.2 F 01/24/21 21:15 Pulse 97 01/24/21 21:15 Resp 18 01/24/21 21:15 BP 93/64 01/24/21 21:15 Pulse Ox 94 L 01/24/21 21:15 - Orders/Labs/Meds Labs: Laboratory Tests 01/24/21 Range/Units 21:01 Urine Color YELLOW Urine Appearance CLEAR Urine pH 6.0 (5.0-8.0) Ur Specific [place] 1.015 (1.001-1.035) Urine Protein NEGATIVE (NEGATIVE) mg/dL Urine Glucose (UA) NEGATIVE (NEGATIVE) mg/dL Urine Ketones NEGATIVE (NEGATIVE) mg/dL Urine Occult Blood NEGATIVE (NEGATIVE) Urine Nitrite NEGATIVE (NEGATIVE) Urine Bilirubin NEGATIVE (NEGATIVE) Urine Urobilinogen 1.0 (<2.0) EU/dL Ur Leukocyte Esterase NEGATIVE (NEGATIVE) Meds: Medications Discontinued Medications Generic Name Dose Route Start Last Admin Trade Name Tanvir PRN Reason Stop Dose Admin Ibuprofen 600 mg 01/24/21 21:53 01/24/21 22:05 Ibuprofen 600 Mg Tab PO 01/24/21 21:54 Not Given ONETIME ONE Tramadol HCl 50 mg 01/24/21 21:53 01/24/21 22:06 Tramadol 50 Mg Tab PO 01/24/21 21:54 Not Given ONETIME ONE Departure - Departure Time of Disposition: 22:10 Disposition: Home, Self-Care 01 Clinical Impression: Concussion injury of brain, Musculoskeletal pain - Discharge Information Instructions: Concussion, Adult, [id number], Musculoskeletal Pain Referrals: Carlin Mansfield MD [Primary Care Provider] - Forms: ED Department Discharge Additional Instructions: Your seen and evaluated the ER today secondary to a head injury. The CT scan of your head and your neck are both negative. Please make an appointment to see Workmen's Comp. or your family doctor for further evaluation. [facility] [address] [place] [address] The following information is given to patients seen in the emergency department who are being discharged to home. This information is to outline your options for follow-up care. We provide all patients seen in our emergency department with a follow-up referral. The need for follow-up, as well as the timing and circumstances, are variable depending upon the specifics of your emergency department visit. If you don't have a primary care physician on staff, we will provide you with a referral. We always advise you to contact your personal physician following an emergency department visit to inform them of the circumstance of the visit and for follow-up with them and/or the need for any referrals to a consulting specialist. The emergency department will also refer you to a specialist when appropriate. This referral assures that you have the opportunity for follow-up care with a specialist. All of these measure are taken in an effort to provide you with optimal care, which includes your follow-up. Under all circumstances we always encourage you to contact your private physician who remains a resource for coordinating your care. When calling for follow-up care, please make the office aware that this follow-up is from your recent emergency room visit. If for any reason you are refused follow-up, please contact the [facility] Emergency Department at and asked to speak to the emergency department charge nurse. [facility] [address] [place] [id number] [facility] [address] [place] [address] Sepsis Event Note (ED) - Evaluation Sepsis Screening Result: No Definite Risk - Focused Exam Vital Signs: Vital Signs Temp Pulse Resp BP Pulse Ox 01/24/21 21:15 98.2 F 97 18 93/64 94 L 01/24/21 20:39 96.8 F L 104 H 18 88/47 L 98
--- NOTE | 2021-01-24 21:59 | CT ---
INDICATION: Status post head trauma with neck pain. COMPARISON: None available TECHNIQUE: CT examination of the cervical spine is performed without contrast using spiral technique. 2 mm thick axial, sagittal and coronal reconstructions were made. Please note that all CT scans at this facility use dose modulation, iterative reconstruction, and/or weight-based dosing when appropriate to reduce radiation dose to as low as reasonably achievable. FINDINGS: : There is straightening of the cervical spine which may be the result of muscular spasm or positioning for the examination. There is no sign of fracture or subluxation. The cervical vertebral bodies and intervertebral discs are normal in height and are in anatomic alignment. There is no sign of prevertebral soft tissue swelling. The airway structures are normal in appearance. The visualized skull base is normal in appearance. The visualized inferior brain is normal in appearance for the patient`s age. The apices of the lungs are clear. IMPRESSION: Straightening of the cervical spine which may be the result of muscular spasm or positioning for the examination. Otherwise normal CT of the cervical spine with no sign of acute injury. Please note that all CT scans at this facility use dose modulation, iterative reconstruction, and/or weight-based dosing when appropriate to reduce radiation dose to as low as reasonably achievable. Dictated by Jessee Sun MD @ Jan 24 2021 9:55PM Signed by Dr. Jessee Sun @ Jan 24 2021 9:58PM
== END 2021-01-24 22:21 | disposition home or self-care (01) ==
LOC: MW.ED 20:27
DX: S06.0X9A Concussion with loss of consciousness of unspecified duration, initial encounter (principal); M54.5 Low back pain; M54.2 Cervicalgia; Z79.899 Other long term (current) drug therapy; W01.198A Fall on same level from slipping, tripping and stumbling with subsequent striking against other object, initial encounter; Y92.89 Other specified places as the place of occurrence of the external cause; Y99.0 Civilian activity done for income or pay
CPT/HCPCS: 70450; 70450-26; 72125; 72125-26; 81003; 99284; 99284-25

== ENCOUNTER 2021-01-27 18:08 | Emergency (ER) | payer SELFPAY ==
[2021-01-27] MEDS ORDERED: Ketorolac 60 MG/2 ML SDV IM ONE ×2 (18:32→22:44)
[2021-01-27] MEDS ORDERED: Ondansetron 4 MG Tab.DIS PO ONE (18:53)
[2021-01-27 19:23] LABS: BLOOD UREA NITROGEN,BUN 6 mg/dL (7.0-18.0); CARBON DIOXIDE,CO2 31.9 mmol/L (21.0-32.0); CHLORIDE,CL 102 mmol/L (98-107); GLUCOSE RANDOM 75 mg/dL (74-106); POTASSIUM,K 3.5 mmol/L (3.5-5.1); SODIUM,NA 139 mmol/L (136-145)
--- NOTE | 2021-01-27 20:52 | EDM.PDOC ---
<Cirilo Contreras - Last Filed: 01/27/21 23:56> ED HPI GENERAL MEDICAL PROBLEM - General Chief Complaint: Abdominal Pain Stated Complaint: SLIPPED ON ICE, HURT HERSELF Time Seen by Provider: 01/27/21 18:10 - History of Present Illness INITIAL COMMENTS - FREE TEXT/NARRATIVE: Signout received by me at 10 PM. Ultrasound has been pending. Patient's ultrasound reveals a sonographic Zepeda sign with mild thickening of the gallbladder wall. Possibly consistent with acute cholecystitis. Upon my evaluation of the patient, the patient does not present with a sonographic Zepeda sign. Patient has tenderness palpation to her right upper quadrant but there is no apneic. With inspiration. I have discussed the results of the ultrasound with the patient and she reports that she has a surgeon that she has followed up with in the past and that they have told her that her gallbladder may need to be taken out however due to her liver they have not recommended it be removed. At this time the patient does not wish evaluation for cholecystectomy. Patient is concerned about her liver. I have discussed with the patient the possibility that it might be infected and she is still insistent regarding the conversations that she has had in the past with her other surgeons that her gallbladder should not be taken out at this point. I have an extremely low suspicion this patient that she has acute cholecystitis given a normal WBC count, unremarkable LFTs, a exam that does not reveal a Zepeda sign by my evaluation. I believe that the patient has a significant amount of pain to her right upper quadrant from her injury and that likely was misinterpreted by the cdl service technician for a sonographic Zepeda. Irregardless, the patient does not wish further evaluation for a cholecystectomy at this time. Patient is requesting 1 oxycodone prior to discharge. Patient be given oxycodone 10 mg ER and will be discharged home in stable condition. Patient was encouraged to return to the ER should she change her mind about wanting surgical consultation and otherwise she should follow up with her doctor soon as possible for reevaluation. Reassessment at the time of disposition demonstrates that the patient is in no acute distress. The patient has remained stable throughout the entire ED visit and is without objective evidence for acute process requiring urgent intervention or hospitalization. The patient is stable for discharge, counseling is provided as documented above, discussed symptomatic treatment and specific conditions for return. I have spoken with the patient/caregiver and discussed todays findings, in addition to providing specific details for the plan of care. Questions are answered and there is agreement with the plan. - Related Data Allergies Allergy/AdvReac Type Severity Reaction Status Date / Time No Known Allergies Allergy Verified 01/27/21 18:21 Home Meds: Home Meds Furosemide [Lasix] 20 mg PO DAILY tablet 11/17/20 [Rx] Lactulose 10 gm PO BID PRN 10 Days #1 bottle 11/17/20 [Rx] LORazepam [Ativan] 0.5 mg PO BID PRN 12/10/20 [History] Spironolactone [Aldactone] 50 mg PO DAILY 12/10/20 [History] oxyCODONE 5 mg PO DAILY PRN 12/10/20 [History] Omeprazole Magnesium [Prilosec Otc] 20 mg PO BID PRN 01/05/21 [History] ED ROS GENERAL - Review of Systems Review Of Systems: See Below ED EXAM, GENERAL - Physical Exam Exam: See Below Departure - Departure Time of Disposition: 23:59 Disposition: Home, Self-Care 01 Clinical Impression: Abnormal ultrasound of biliary tract Abdominal injury Qualifiers: Encounter type: initial encounter Qualified Code(s): S39.91XA - Unspecified injury of abdomen, initial encounter Injury of abdominal wall Qualifiers: Encounter type: initial encounter Qualified Code(s): S39.91XA - Unspecified injury of abdomen, initial encounter - Discharge Information Instructions: Blunt Abdominal Trauma, Cholecystitis, [id number] Referrals: PCP,None [Primary Care Provider] - Forms: ED Department Discharge Additional Instructions: You were seen and evaluated ER today secondary to pain to your right side after an injury. Your blood tests are all within normal limits. The ultrasound reveals an abnormality in your gallbladder that we have discussed that you have been aware of in the past. Please make sure that you follow-up with your doctor for further evaluation for possible removal of your gallbladder. Please return to the ER if you should change her mind and wish further evaluation here with her surgeon regarding your gallbladder. In the meantime, continue with your current pain management at home and follow-up with your doctor in the next 1 to 2 days. Return to the ER if you start developing any high fevers or worsening pain. The following information is given to patients seen in the emergency department who are being discharged to home. This information is to outline your options for follow-up care. We provide all patients seen in our emergency department with a follow-up referral. The need for follow-up, as well as the timing and circumstances, are variable depending upon the specifics of your emergency department visit. If you don't have a primary care physician on staff, we will provide you with a referral. We always advise you to contact your personal physician following an emergency department visit to inform them of the circumstance of the visit and for follow-up with them and/or the need for any referrals to a consulting specialist. The emergency department will also refer you to a specialist when appropriate. This referral assures that you have the opportunity for follow-up care with a specialist. All of these measure are taken in an effort to provide you with optimal care, which includes your follow-up. Under all circumstances we always encourage you to contact your private physician who remains a resource for coordinating your care. When calling for follow-up care, please make the office aware that this follow-up is from your recent emergency room visit. If for any reason you are refused follow-up, please contact the [facility] Emergency Department at and asked to speak to the emergency department charge nurse. [facility] [address] [place] [address] [place] [address] 1. Ibuprofen as directed for pain management or discomfort. 2. Follow up with the primary care provider as discussed. Return to the ED as ne eded and as discussed. <Lila Kendall - Last Filed: 01/30/21 10:02> ED HPI GENERAL MEDICAL PROBLEM - General Source of Information: Reports: Patient History Limitations: Reports: No Limitations - History of Present Illness INITIAL COMMENTS - FREE TEXT/NARRATIVE: HISTORY AND PHYSICAL: History of present illness: Patient is a 35-year-old female, who is well-known to me, who presents to the ED today with concern of injury to her right lower abdomen and right upper abdomen that occurred 30 minutes prior to arrival to the ED. Patient states that she was at the pharmacy and she was at her car. Patient states she slipped and hit her abdomen on the seat of the car. Patient states she did not hit her head or lose consciousness. Patient states she did not completely fall to the ground. Patient is also concerned because she has gallstones and thinks that the injury caused it to flare up. Patient has a history of alcoholic cirrhosis. Patient denies fever, chills, chest pain, shortness of breath, or cough. Denies headache, neck stiff ness, change in vision, syncope, or near syncope. Denies nausea, vomiting, diarrhea, constipation, or dysuria. Has not noted any blood in urine or stool. Patient has been eating and drinking appropriately. Review of systems: As per history of present illness and below otherwise all systems reviewed and negative. Past medical history: As per history of present illness and as reviewed below otherwise noncontributory. Surgical history: As per history of present illness and as reviewed below otherwise noncontributory. Social history: See social history for further information Family history: As per history of present illness and as reviewed below otherwise noncontributory. Physical exam: General: Patient is alert, oriented, and in no acute distress. Patient sitting comfortably on exam table. Vitals stable and reviewed by me. HEENT: Atraumatic, normocephalic, pupils equal and reactive bilaterally, negative for conjunctival pallor or scleral icterus, mucous membranes moist, TMs normal bilaterally, throat clear, neck supple, nontender, trachea midline. No drooling or trismus noted. No meningeal signs. No hot potato voice noted. Lungs: Clear to auscultation, breath sounds equal bilaterally, chest nontender. Heart: S1S2, regular rate and rhythm without overt murmur Abdomen: No eccymosis or signs of abdominal contusion. Otherwise, soft, nondistended, mild right sided abdominal tenderness without guarding, negative zepeda/rebound. Negative for masses or hepatosplenomegaly. Negative for costovertebral tenderness. Pelvis: Stable nontender. Genitourinary: Deferred. Rectal: Deferred. Skin: Intact, warm, dry. No lesions or rashes noted. Extremities: Atraumatic, negative for cords or calf pain. Neurovascular unremarkable. Neuro: Awake, alert, oriented. Cranial nerves II through XII unremarkable. Cerebellum unremarkable. Motor and sensory unremarkable throughout. Exam nonfocal. Notes: Patient does have a history of softer blood pressures chronically and her blood pressure today is stable from all past visits. Bedside FAST exam of abdomen shows no acute intraabdominal bleeding-performed by Dr. Chacon. CBC shows hgb 10.8. Hgb is stable from past labwork. Patients mechanism of injury is not severe, however, patient thinks that the injury has "infected her gallbladder." Will get formal RUQ US. Signs and symptoms that were prompt return to the ED thoroughly discussed with patient. Discussed importance for follow-up with a primary care provider. Diagnostics: CBC, CMP, UA, Lipase, RUQ US Therapeutics: Zofran (Patient declines Toradol for pain "as it is not strong enough") Prescription: None Impression: Abdominal wall injury Plan: 1. Ibuprofen as directed for pain management or discomfort. 2. Follow up with the primary care provider as discussed. Return to the ED as needed and as discussed. Definitive disposition and diagnosis as appropriate pending reevaluation and review of above. 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: Musculoskeletal History: Reports: Back Pain, Chronic Other Musculoskeletal History: hx herniated disc in lower back Neurological History: Reports: None Psychiatric History: Reports: Anxiety Endocrine/Metabolic History: Reports: None Insulin Pump Model and Laboratory Engineer: None Hematologic History: Reports: None Immunologic History: Reports: None Oncologic (Cancer) History: Reports: Cervix Dermatologic History: Reports: None - Infectious Disease History Infectious Disease History: Reports: Chicken Pox, Influenza, Novel Coronavirus - Past Surgical History Head Surgeries/Procedures: Reports: None HEENT Surgical History: Reports: Oral Surgery Other HEENT Surgeries/Procedures: teeth removed at 26 years of age wears dentures Respiratory Surgical History: Reports: None GI Surgical History: Reports: Other (See Below) Other GI Surgeries/Procedures: Weekly paracentesis in [place]-Rad[facility] Dept Female Surgical History: Reports: None Musculoskeletal Surgical History: Reports: None Oncologic Surgical History: Reports: Other (See Below) Other Oncologic Surgeries/Procedures: LEEP Social & Family History - Family History Family Medical History: No Pertinent Family History HEENT: Reports: Cataract, Glaucoma, Impaired Vision Cardiac: Reports: CAD, High Cholesterol, Hypertension GI: Reports: Cholelithiasis, Hepatitis OBGYN: Reports: Endometriosis Musculoskeletal: Reports: Arthritis, Back pain, Chronic, Neck Pain, Chronic, Osteoarthritis, RA Neurological: Reports: Alzheimers Disease, Dementia, Parkinson's Psychiatric: Reports: ADD, ADHD, Anxiety, Depression, Emotional Problems, Learning Disability, Mood Swings, Panic Attack Endocrine/Metabolic: Reports: Diabetes, type II, Hyperthyroidism Oncologic: Reports: Leukemia - Tobacco Use Tobacco Use Status *Q: Never Tobacco User - Caffeine Use Caffeine Use: Reports: None - Recreational Drug Use Recreational Drug Use: No Course - Vital Signs Last Recorded V/S: Last Vital Signs Temp 97.0 F 01/27/21 18:22 Pulse 88 01/28/21 00:09 Resp 18 01/28/21 00:09 BP 102/59 L 01/28/21 00:09 Pulse Ox 99 01/28/21 00:09 - Orders/Labs/Meds Labs: Laboratory Tests 01/27/21 01/27/21 01/27/21 Range/Units 18:33 18:46 18:51 WBC 4.83 (4.0-11.0) K/uL RBC 3.61 L (4.30-5.90) M/uL Hgb 10.8 L (12.0-16.0) g/dL Hct 33.5 L (36.0-46.0) % MCV 92.8 (80.0-98.0) fL MCH 29.9 (27.0-32.0) pg MCHC 32.2 (31.0-37.0) g/dL RDW Std Deviation 47.0 (28.0-62.0) fl RDW Coeff of Blue 14 (11.0-15.0) % Plt Count 272 (150-400) K/uL MPV 10.90 (7.40-12.00) fL Neut % (Auto) 49.9 (48.0-80.0) % Lymph % (Auto) 35.4 (16.0-40.0) % [place] % (Auto) 10.6 (0.0-15.0) % Eos % (Auto) 2.9 (0.0-7.0) % Baso % (Auto) 1.2 (0.0-1.5) % Neut # (Auto) 2.4 (1.4-5.7) K/uL Lymph # (Auto) 1.7 (0.6-2.4) K/uL [place] # (Auto) 0.5 (0.0-0.8) K/uL Eos # (Auto) 0.1 (0.0-0.7) K/uL Baso # (Auto) 0.1 (0.0-0.1) K/uL Nucleated RBC % 0.0 /100WBC Nucleated RBCs # 0 K/uL Sodium (136-145) mmol/L Potassium (3.5-5.1) mmol/L Chloride (98-107) mmol/L Carbon Dioxide (21.0-32.0) mmol/L BUN (7.0-18.0) mg/dL Creatinine (0.6-1.0) mg/dL Est Cr Clr Drug Dosing mL/min Estimated GFR (MDRD) ml/min Glucose (74-106) mg/dL Calcium (8.5-10.1) mg/dL Total Bilirubin (0.2-1.0) mg/dL AST (15-37) IU/L ALT (14-63) IU/L Alkaline Phosphatase (46-116) U/L Total Protein (6.4-8.2) g/dL Albumin (3.4-5.0) g/dL Globulin (2.6-4.0) g/dL Albumin/Globulin Ratio (0.9-1.6) Urine Color YELLOW Urine Appearance CLEAR Urine pH 6.0 (5.0-8.0) Ur Specific [place] 1.015 (1.001-1.035) Urine Protein NEGATIVE (NEGATIVE) mg/dL Urine Glucose (UA) NEGATIVE (NEGATIVE) mg/dL Urine Ketones NEGATIVE (NEGATIVE) mg/dL Urine Occult Blood NEGATIVE (NEGATIVE) Urine Nitrite NEGATIVE (NEGATIVE) Urine Bilirubin NEGATIVE (NEGATIVE) Urine Urobilinogen 0.2 (<2.0) EU/dL Ur Leukocyte Esterase NEGATIVE (NEGATIVE) Urine HCG, Qual NEGATIVE (NEGATIVE) 01/27/21 Range/Units 18:51 WBC (4.0-11.0) K/uL RBC (4.30-5.90) M/uL Hgb (12.0-16.0) g/dL Hct (36.0-46.0) % MCV (80.0-98.0) fL MCH (27.0-32.0) pg MCHC (31.0-37.0) g/dL RDW Std Deviation (28.0-62.0) fl RDW Coeff of Blue (11.0-15.0) % Plt Count (150-400) K/uL MPV (7.40-12.00) fL Neut % (Auto) (48.0-80.0) % Lymph % (Auto) (16.0-40.0) % [place] % (Auto) (0.0-15.0) % Eos % (Auto) (0.0-7.0) % Baso % (Auto) (0.0-1.5) % Neut # (Auto) (1.4-5.7) K/uL Lymph # (Auto) (0.6-2.4) K/uL [place] # (Auto) (0.0-0.8) K/uL Eos # (Auto) (0.0-0.7) K/uL Baso # (Auto) (0.0-0.1) K/uL Nucleated RBC % /100WBC Nucleated RBCs # K/uL Sodium 139 (136-145) mmol/L Potassium 3.5 (3.5-5.1) mmol/L Chloride 102 (98-107) mmol/L Carbon Dioxide 31.9 (21.0-32.0) mmol/L BUN 6 L (7.0-18.0) mg/dL Creatinine 0.8 (0.6-1.0) mg/dL Est Cr Clr Drug Dosing 75.88 mL/min Estimated GFR (MDRD) > 60.0 ml/min Glucose 75 (74-106) mg/dL Calcium 9.1 (8.5-10.1) mg/dL Total Bilirubin 0.2 (0.2-1.0) mg/dL AST 20 (15-37) IU/L ALT 16 (14-63) IU/L Alkaline Phosphatase 75 (46-116) U/L Total Protein 7.1 (6.4-8.2) g/dL Albumin 3.1 L (3.4-5.0) g/dL Globulin 4.0 (2.6-4.0) g/dL Albumin/Globulin Ratio 0.8 L (0.9-1.6) Urine Color Urine Appearance Urine pH (5.0-8.0) Ur Specific [place] (1.001-1.035) Urine Protein (NEGATIVE) mg/dL Urine Glucose (UA) (NEGATIVE) mg/dL Urine Ketones (NEGATIVE) mg/dL Urine Occult Blood (NEGATIVE) Urine Nitrite (NEGATIVE) Urine Bilirubin (NEGATIVE) Urine Urobilinogen (<2.0) EU/dL Ur Leukocyte Esterase (NEGATIVE) Urine HCG, Qual (NEGATIVE) Meds: Medications Discontinued Medications Generic Name Dose Route Start Last Admin Trade Name Freq PRN Reason Stop Dose Admin Ketorolac Tromethamine 60 mg 01/27/21 18:32 01/27/21 18:51 Ketorolac 60 Mg/2 Ml Sdv IM 01/27/21 18:33 Not Given ONETIME ONE Ketorolac Tromethamine 60 mg 01/27/21 22:44 01/27/21 23:01 Ketorolac 60 Mg/2 Ml Sdv IM 01/27/21 22:45 Not Given ONETIME ONE Ondansetron HCl 4 mg 01/27/21 18:53 01/27/21 19:07 Ondansetron 4 Mg Tab.Dis PO 01/27/21 18:54 4 mg ONETIME ONE Administration Oxycodone HCl 10 mg 01/27/21 23:50 01/28/21 00:09 Oxycodone Er 10 Mg Tab.Er PO 01/27/21 23:51 10 mg ONETIME ONE Administration Sepsis Event Note (ED) - Evaluation Sepsis Screening Result: No Definite Risk
--- NOTE | 2021-01-27 23:20 | US ---
INDICATION: Right upper quadrant pain COMPARISON: CT of the abdomen from 01/05/2021 TECHNIQUE: Ultrasound examination of the right upper quadrant was performed. FINDINGS: There is mild gallbladder wall thickening at 4 millimeters, and a sonographic Zepeda sign is present, with pain over the gallbladder during ultrasound examination. The wall thickening is not evident on the previous CT. There is an echogenic, shadowing, dependent, mobile 0.9 centimeter calculus in the gallbladder. The common bile duct is normal in caliber at 5 mm. The pancreatic head and body were examined, and these are normal in appearance. The abdominal aorta and visualized portions of the inferior vena cava are normal in appearance. The liver shows no sign of mass or contour abnormality, and there is no sign of ascites. The liver has increased echogenicity consistent with fatty infiltration, consistent with the appearance on CT. There is antegrade flow in the main portal vein and hepatic artery. The right kidney is unremarkable. IMPRESSION: The mild thickening of the gallbladder wall with a sonographic Zepeda sign consistent with acute cholecystitis. Cholelithiasis. No sign of biliary ductal dilatation. Fatty infiltration of the liver. Dictated by Jessee Sun MD @ Jan 27 2021 11:07PM Signed by Dr. Jessee Sun @ Jan 27 2021 11:18PM
[2021-01-27] MEDS ORDERED: oxyCODONE ER 10 MG TAB.ER PO ONE (23:50)
== END 2021-01-28 00:19 | disposition home or self-care (01) ==
LOC: MW.ED 18:08
DX: S39.91XA Unspecified injury of abdomen, initial encounter (principal); R93.2 Abnormal findings on diagnostic imaging of liver and biliary tract; X58.XXXA Exposure to other specified factors, initial encounter
CPT/HCPCS: 36415; 76705; 80053; 81003; 81025; 85025; 99284; A9270; 99283

== ENCOUNTER 2021-02-01 20:53 | Emergency (ER) | payer SELFPAY ==
[2021-02-01] MEDS ORDERED: Sodium Chloride 0.9% 2.5 ML Syringe FLUSH PRN ×2 (21:19→22:35)
[2021-02-01] MEDS ORDERED: Sodium Chloride 0.9% 10 ML Syringe FLUSH PRN ×2 (21:19→22:35)
--- NOTE | 2021-02-01 22:28 | EDM.PDOC ---
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 She fell and landed on her back. She has back pain rib pain right hip pain and had temporary numbness and weakness of her right lower extremity. Subsequently syncopal episode and was caught by the person near her. She did not injure self at that time but thinks she may have injured herself with the primary fall. Review of systems: As per history of present illness and below otherwise all systems reviewed and negative. Past medical history: As per history of present illness and as reviewed below otherwise noncontributory. Surgical history: As per history of present illness and as reviewed below otherwise no ncontributory. Social history: No reported history of drug or alcohol abuse. Family history: As per history of present illness and as reviewed below otherwise noncontributory. Physical exam: Constitutional - well developed, well-nourished and in no acute distress HEENT - normocephalic, no evidence of trauma - external nose and mouth normal - no mass in neck and no JVD - mucosae moist EYES - full EOM, PERRL, no icterus - no evidence of inflammation, injection, or drainage Respiratory - no respiratory distress, equal bilateral expansion, lungs clear to auscultation and no abnormal lung sounds Cardiovascular - Regular Rhythm with S1 and S2 appreciated and no murmur, gallop or rub. GI - abdomen soft without distension or organomegaly - normal bowel sounds - no guard or rebound Musculoskeletal mild tenderness without step-off or deformity in the low cervical spine. Tenderness to lateral rib compression on both sides of her chest. Tenderness in the right hip and tenderness to pelvic compression without crepitation or abnormal movement. Otherwise no gross deformity of long bones or joints - no tenderness, swelling or edema Neurologic - Alert and oriented times four - CN II-XII grossly intact - motor sensory and coordination symmetrically normal at this time she moves her feet and feels her feet. Psychiatric - appropriate mood and affect with normal thought content Hematologic - No petechiae or purpura - mucosa appropriate color and sclera not pale - normal nail bed color and refill Integument - no rash or evidence of trauma - normal turgor Diagnostics: [] Therapeutics: [] Impression: [] Plan: [] Definitive disposition and diagnosis as appropriate pending reevaluation and review of above. - Related Data Allergies Allergy/AdvReac Type Severity Reaction Status Date / Time No Known Allergies Allergy Verified 01/27/21 18:21 Home Meds: Home Meds Furosemide [Lasix] 20 mg PO DAILY tablet 11/17/20 [Rx] Lactulose 10 gm PO BID PRN 10 Days #1 bottle 11/17/20 [Rx] LORazepam [Ativan] 0.5 mg PO BID PRN 12/10/20 [History] Spironolactone [Aldactone] 50 mg PO DAILY 12/10/20 [History] oxyCODONE 10 mg PO DAILY PRN 12/10/20 [History] Omeprazole Magnesium [Prilosec Otc] 20 mg PO BID PRN 01/05/21 [History] Acetaminophen/HYDROcodone [Boykins 325-10 MG] 1 tab PO Q6H PRN #10 tablet 02/02/21 [Rx] Past Medical History HEENT History: Reports: None Other HEENT History: Yellow sclera Cardiovascular History: Reports: None Respiratory History: Reports: Other (See Below) Other Respiratory History: Pluerisy Gastrointestinal History: Reports: Cirrhosis, Other (See Below) Other Gastrointestinal History: heartburn Genitourinary History: Reports: Other (See Below) Other Genitourinary History: yeast infection during [employer] History: Reports: Musculoskeletal History: Reports: Back Pain, Chronic Other Musculoskeletal History: hx herniated disc in lower back Neurological History: Reports: None Psychiatric History: Reports: Anxiety Endocrine/Metabolic History: Reports: None 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 Hematologic History: Reports: None Immunologic History: Reports: None Oncologic (Cancer) History: Reports: Cervix Dermatologic History: Reports: None - Infectious Disease History Infectious Disease History: Reports: Chicken Pox, Influenza, Novel Coronavirus - Past Surgical History Head Surgeries/Procedures: Reports: None HEENT Surgical History: Reports: Oral Surgery Other HEENT Surgeries/Procedures: teeth removed at 26 years of age wears dentures Respiratory Surgical History: Reports: None GI Surgical History: Reports: Other (See Below) Other GI Surgeries/Procedures: Weekly paracentesis in [place] Female Surgical History: Reports: None Musculoskeletal Surgical History: Reports: None Oncologic Surgical History: Reports: Other (See Below) Other Oncologic Surgeries/Procedures: LEEP Social & Family History - Family History Family Medical History: No Pertinent Family History HEENT: Reports: Cataract, Glaucoma, Impaired Vision Cardiac: Reports: CAD, High Cholesterol, Hypertension GI: Reports: Cholelithiasis, Hepatitis OBGYN: Reports: Endometriosis Musculoskeletal: Reports: Arthritis, Back pain, Chronic, Neck Pain, Chronic, Osteoarthritis, RA Neurological: Reports: Alzheimers Disease, Dementia, Parkinson's Psychiatric: Reports: ADD, ADHD, Anxiety, Depression, Emotional Problems, Learning Disability, Mood Swings, Panic Attack Endocrine/Metabolic: Reports: Diabetes, type II, Hyperthyroidism Oncologic: Reports: Leukemia - Caffeine Use Caffeine Use: Reports: None ED ROS GENERAL - Review of Systems Review Of Systems: Comprehensive ROS is negative, except as noted in HPI. ED EXAM, GENERAL - Physical Exam Exam: See Below Free Text/Narrative:: Physical exam is in the HPI Course - Vital Signs Last Recorded V/S: Last Vital Signs Temp 36.4 C 02/01/21 22:23 Pulse 81 02/01/21 22:23 Resp 16 02/01/21 22:23 BP 103/41 L 02/01/21 22:23 Pulse Ox 100 02/01/21 22:23 - Orders/Labs/Meds Orders: Active Orders 24 hr Category Date Time Status EKG 12 Lead [EKG Documentation Completion] [RC] STAT Care 02/01/21 22:38 Active Sodium Chloride 0.9% [Saline Flush] Med 02/01/21 21:19 Active 10 ml FLUSH ASDIRECTED PRN Sodium Chloride 0.9% [Saline Flush] Med 02/01/21 22:35 Active 10 ml FLUSH ASDIRECTED PRN Sodium Chloride 0.9% [Saline Flush] Med 02/01/21 21:19 Active 2.5 ml FLUSH ASDIRECTED PRN Sodium Chloride 0.9% [Saline Flush] Med 02/01/21 22:35 Active 2.5 ml FLUSH ASDIRECTED PRN Saline Lock Insert [OM.PC] Stat Oth 02/01/21 21:19 Ordered Saline Lock Insert [OM.PC] Stat Oth 02/01/21 22:35 Ordered Medication Orders Sodium Chloride (Sodium Chloride 0.9% 10 Ml Syringe) 10 ml FLUSH ASDIRECTED PRN PRN Reason: Keep Vein Open Sodium Chloride (Sodium Chloride 0.9% 2.5 Ml Syringe) 2.5 ml FLUSH ASDIRECTED PRN PRN Reason: Keep Vein Open Sodium Chloride (Sodium Chloride 0.9% 10 Ml Syringe) 10 ml FLUSH ASDIRECTED PRN PRN Reason: Keep Vein Open Sodium Chloride (Sodium Chloride 0.9% 2.5 Ml Syringe) 2.5 ml FLUSH ASDIRECTED PRN PRN Reason: Keep Vein Open Labs: Laboratory Tests 02/01/21 02/01/21 02/01/21 Range/Units 21:34 21:34 23:14 WBC 4.02 (4.0-11.0) K/uL RBC 3.25 L (4.30-5.90) M/uL Hgb 9.7 L (12.0-16.0) g/dL Hct 29.7 L (36.0-46.0) % MCV 91.4 (80.0-98.0) fL MCH 29.8 (27.0-32.0) pg MCHC 32.7 (31.0-37.0) g/dL RDW Std Deviation 43.4 (28.0-62.0) fl RDW Coeff of Blue 13 (11.0-15.0) % Plt Count 199 (150-400) K/uL MPV 10.80 (7.40-12.00) fL Neut % (Auto) 42.7 L (48.0-80.0) % Lymph % (Auto) 40.5 H (16.0-40.0) % [place] % (Auto) 10.9 (0.0-15.0) % Eos % (Auto) 4.2 (0.0-7.0) % Baso % (Auto) 1.7 H (0.0-1.5) % Neut # (Auto) 1.7 (1.4-5.7) K/uL Lymph # (Auto) 1.6 (0.6-2.4) K/uL [place] # (Auto) 0.4 (0.0-0.8) K/uL Eos # (Auto) 0.2 (0.0-0.7) K/uL Baso # (Auto) 0.1 (0.0-0.1) K/uL Sodium (136-145) mmol/L Potassium (3.5-5.1) mmol/L Chloride (98-107) mmol/L Carbon Dioxide (21.0-32.0) mmol/L BUN (7.0-18.0) mg/dL Creatinine (0.6-1.0) mg/dL Est Cr Clr Drug Dosing mL/min Estimated GFR (MDRD) ml/min Glucose (74-106) mg/dL Calcium (8.5-10.1) mg/dL Total Bilirubin (0.2-1.0) mg/dL AST (15-37) IU/L ALT (14-63) IU/L Alkaline Phosphatase (46-116) U/L Total Protein (6.4-8.2) g/dL Albumin (3.4-5.0) g/dL Globulin (2.6-4.0) g/dL Albumin/Globulin Ratio (0.9-1.6) Lipase (73-393) U/L Urine Color YELLOW Urine Appearance CLEAR Urine pH 6.0 (5.0-8.0) Ur Specific Maud 1.010 (1.001-1.035) Urine Protein NEGATIVE (NEGATIVE) mg/dL Urine Glucose (UA) NEGATIVE (NEGATIVE) mg/dL Urine Ketones NEGATIVE (NEGATIVE) mg/dL Urine Occult Blood NEGATIVE (NEGATIVE) Urine Nitrite NEGATIVE (NEGATIVE) Urine Bilirubin NEGATIVE (NEGATIVE) Urine Urobilinogen 1.0 (<2.0) EU/dL Ur Leukocyte Esterase NEGATIVE (NEGATIVE) Urine HCG, Qual NEGATIVE (NEGATIVE) 02/01/21 Range/Units 23:14 WBC (4.0-11.0) K/uL RBC (4.30-5.90) M/uL Hgb (12.0-16.0) g/dL Hct (36.0-46.0) % MCV (80.0-98.0) fL MCH (27.0-32.0) pg MCHC (31.0-37.0) g/dL RDW Std Deviation (28.0-62.0) fl RDW Coeff of Blue (11.0-15.0) % Plt Count (150-400) K/uL MPV (7.40-12.00) fL Neut % (Auto) (48.0-80.0) % Lymph % (Auto) (16.0-40.0) % [place] % (Auto) (0.0-15.0) % Eos % (Auto) (0.0-7.0) % Baso % (Auto) (0.0-1.5) % Neut # (Auto) (1.4-5.7) K/uL Lymph # (Auto) (0.6-2.4) K/uL Fill[place] # (Auto) (0.0-0.8) K/uL Eos # (Auto) (0.0-0.7) K/uL Baso # (Auto) (0.0-0.1) K/uL Sodium 139 (136-145) mmol/L Potassium 3.8 (3.5-5.1) mmol/L Chloride 104 (98-107) mmol/L Carbon Dioxide 26.9 (21.0-32.0) mmol/L BUN 3 L (7.0-18.0) mg/dL Creatinine 0.9 (0.6-1.0) mg/dL Est Cr Clr Drug Dosing 67.45 mL/min Estimated GFR (MDRD) > 60.0 ml/min Glucose 86 (74-106) mg/dL Calcium 8.7 (8.5-10.1) mg/dL Total Bilirubin 0.3 (0.2-1.0) mg/dL AST 18 (15-37) IU/L ALT 12 L (14-63) IU/L Alkaline Phosphatase 67 (46-116) U/L Total Protein 6.5 (6.4-8.2) g/dL Albumin 2.8 L (3.4-5.0) g/dL Globulin 3.7 (2.6-4.0) g/dL Albumin/Globulin Ratio 0.8 L (0.9-1.6) Lipase 89 (73-393) U/L Urine Color Urine Appearance Urine pH (5.0-8.0) Ur Specific Maud (1.001-1.035) Urine Protein (NEGATIVE) mg/dL Urine Glucose (UA) (NEGATIVE) mg/dL Urine Ketones (NEGATIVE) mg/dL Urine Occult Blood (NEGATIVE) Urine Nitrite (NEGATIVE) Urine Bilirubin (NEGATIVE) Urine Urobilinogen (<2.0) EU/dL Ur Leukocyte Esterase (NEGATIVE) Urine HCG, Qual (NEGATIVE) Meds: Medications Generic Name Dose Route Start Last Admin Trade Name Freq PRN Reason Stop Dose Admin Sodium Chloride 10 ml 02/01/21 21:19 Sodium Chloride 0.9% 10 Ml Syringe FLUSH ASDIRECTED PRN Keep Vein Open Sodium Chloride 2.5 ml 02/01/21 21:19 Sodium Chloride 0.9% 2.5 Ml Syringe FLUSH ASDIRECTED PRN Keep Vein Open Sodium Chloride 10 ml 02/01/21 22:35 Sodium Chloride 0.9% 10 Ml Syringe FLUSH ASDIRECTED PRN Keep Vein Open Sodium Chloride 2.5 ml 02/01/21 22:35 Sodium Chloride 0.9% 2.5 Ml Syringe FLUSH ASDIRECTED PRN Keep Vein Open Discontinued Medications Generic Name Dose Route Start Last Admin Trade Name Freq PRN Reason Stop Dose Admin Hydrocodone Bitart/Acetaminophen 1 tab 02/02/21 00:33 02/02/21 01:09 Acetaminophen/Hydrocodone 325-10 Mg Tab PO 02/02/21 00:34 1 tab ONETIME ONE Administration Ondansetron HCl 4 mg 02/02/21 00:07 02/02/21 00:20 Ondansetron 4 Mg Tab.Dis PO 02/02/21 00:08 4 mg ONETIME ONE Administration Departure - Departure Time of Disposition: 02:03 Disposition: Home, Self-Care 01 Condition: Good Clinical Impression: Syncope Abdominal pain Qualifiers: Abdominal location: left upper quadrant Qualified Code(s): R10.12 - Left upper quadrant pain - Discharge Information Prescriptions: Acetaminophen/HYDROcodone [Boykins 325-10 MG] 1 tab PO Q6H PRN #10 tablet PRN Reason: Pain (Severe 7-10) Instructions: Near-Syncope, [id number], Syncope, [id number] Referrals: Carlin Mansfield MD [Primary Care Provider] - Forms: ED Department Discharge Additional Instructions: Please Call Respiratory Therapy Tomorrow Morning to get your ZIO patch put on. Please contact [phone] and ask for Respiratory Therapy. I have sent the zio patch prescription to [facility], attached you will have a copy. The following information is given to patients seen in the emergency department who are being discharged to home. This information is to outline your options for follow-up care. We provide all patients seen in our emergency department with a follow-up referral. The need for follow-up, as well as the timing and circumstances, are variable depending upon the specifics of your emergency department visit. If you don't have a primary care physician on staff, we will provide you with a referral. We always advise you to contact your personal physician following an emergency department visit to inform them of the circumstance of the visit and for follow-up with them and/or the need for any referrals to a consulting specialist. The emergency department will also refer you to a specialist when appropriate. This referral assures that you have the opportunity for follow-up care with a specialist. All of these measure are taken in an effort to provide you with optimal care, which includes your follow-up. Under all circumstances we always encourage you to contact your private physician who remains a resource for coordinating your care. When calling for follow-up care, please make the office aware that this follow-up is from your recent emergency room visit. If for any reason you are refused follow-up, please contact the [facility] Emergency Department at and asked to speak to the emergency department charge nurse. [facility] [address] [place] [address] [place] [address] Sepsis Event Note (ED) - Evaluation Sepsis Screening Result: No Definite Risk - Focused Exam Vital Signs: Vital Signs Temp Pulse Resp BP Pulse Ox 02/01/21 22:23 36.4 C 81 16 103/41 L 100 - My Orders Last 24 Hours: My Active Orders 02/01/21 22:35 Sodium Chloride 0.9% [Saline Flush] 10 ml FLUSH ASDIRECTED PRN Sodium Chloride 0.9% [Saline Flush] 2.5 ml FLUSH ASDIRECTED PRN Saline Lock Insert [OM.PC] Stat 02/01/21 22:38 EKG 12 Lead [EKG Documentation Completion] [RC] STAT - Assessment/Plan Last 24 Hours: My Active Orders 02/01/21 22:35 Sodium Chloride 0.9% [Saline Flush] 10 ml FLUSH ASDIRECTED PRN Sodium Chloride 0.9% [Saline Flush] 2.5 ml FLUSH ASDIRECTED PRN Saline Lock Insert [OM.PC] Stat 02/01/21 22:38 EKG 12 Lead [EKG Documentation Completion] [RC] STAT
[2021-02-01 23:39] LABS: BLOOD UREA NITROGEN,BUN 3 mg/dL (7.0-18.0); CARBON DIOXIDE,CO2 26.9 mmol/L (21.0-32.0); CHLORIDE,CL 104 mmol/L (98-107); GLUCOSE RANDOM 86 mg/dL (74-106); LIPASE 89 U/L (73-393); POTASSIUM,K 3.8 mmol/L (3.5-5.1); SODIUM,NA 139 mmol/L (136-145)
[2021-02-02] MEDS ORDERED: Ondansetron 4 MG Tab.DIS PO ONE (00:07)
--- NOTE | 2021-02-02 00:23 | CR ---
INDICATION: fall CHEST, PA AND LATERAL Upright PA and lateral radiographs of the chest were performed. Comparison: No previous studies are currently available for comparison. The lungs appear clear and there are no pleural effusions. Heart size and pulmonary vasculature appear normal. Visualized bones show no significant findings. IMPRESSION: No acute intrathoracic abnormality identified. HELEN FIERRO MD [facility] Dictated by: Sathish Fierro MD @ 02/02/2021 00:22:54 (Electronically Signed)
--- NOTE | 2021-02-02 00:23 | CR ---
INDICATION: fall, pain RIGHT SHOULDER No fracture, dislocation, or destructive lesion of bone is seen. No arthritic changes or soft tissue abnormalities are identified. IMPRESSION: Negative right shoulder radiographs. HELEN FIERRO MD [facility] Dictated by: Sathish Fierro MD @ 02/02/2021 00:22:03 (Electronically Signed)
--- NOTE | 2021-02-02 00:25 | CR ---
INDICATION: fall, pain LUMBAR SPINE FINDINGS: No acute fractures are identified. Disc spaces appear preserved. Osseous alignment is within normal limits and no subluxation is seen. Paravertebral soft tissues are unremarkable. IMPRESSION: No fracture, subluxation, or other acute finding identified. HELEN FIERRO MD [facility] Dictated by: Sathish Fierro MD @ 02/02/2021 00:23:26 (Electronically Signed)
--- NOTE | 2021-02-02 00:25 | CR ---
INDICATION: fall, pain CERVICAL SPINE FINDINGS: No acute fractures are identified. There is straightening of cervical lordosis, possibly due to muscle spasm. Osseous alignment is otherwise unremarkable and no subluxation is seen. Prevertebral soft tissues appear normal. Included portions of the airway and lung apices are within normal limits. IMPRESSION: Straightened lordosis, possibly due to muscle spasm. No fracture, subluxation, or other acute finding identified. HELEN FIERRO MD [facility] Dictated by: Sathish Fierro MD @ 02/02/2021 00:24:59 (Electronically Signed)
--- NOTE | 2021-02-02 00:27 | CR ---
INDICATION: fall, pain PELVIS Comparison: No previous studies are currently available for comparison. No fractures or destructive lesions of bone are identified. No hip dislocation is evident. No significant hip arthritic changes are demonstrated. Included soft tissues show no significant findings. IMPRESSION: No significant abnormality identified. HELEN FIERRO MD [facility] Dictated by: Sathish Fierro MD @ 02/02/2021 00:26:30 (Electronically Signed)
[2021-02-02] MEDS ORDERED: Acetaminophen/HYDROcodone 325-10 MG Tab PO ONE (00:33)
== END 2021-02-02 02:45 | disposition home or self-care (01) ==
LOC: MW.ED 20:53
DX: R10.12 Left upper quadrant pain (principal); R55 Syncope and collapse; M54.9 Dorsalgia, unspecified; R07.81 Pleurodynia; M25.551 Pain in right hip; R53.1 Weakness
CPT/HCPCS: 36415; 71046; 72040; 72100; 72170; 73030; 80053; 81003; 81025; 83690; 85025; 93005; 99284; A9270; 99285

== ENCOUNTER 2021-02-09 19:44 | Emergency (ER) | payer SELFPAY ==
--- NOTE | 2021-02-09 19:46 | EDM.PDOC ---
ED HPI GENERAL MEDICAL PROBLEM - General Stated Complaint: CIRRHOSIS, DIZZY, WEAK Time Seen by Provider: 02/09/21 19:45 Source of Information: Reports: Patient History Limitations: Reports: No Limitations - History of Present Illness INITIAL COMMENTS - FREE TEXT/NARRATIVE: 35-year-old female with history of alcoholic cirrhosis, colitis, UGIB, electrolyte abnormality presents with generalized weakness and dizziness worsening over the past week. She has not been tolerating p.o. intake over the past 4 days secondary to the nausea and vomiting. She also states she has slept about 10 hours over the last 4 days. She admits to feeling chills, nonbloody vomiting and diarrhea too many times to count, chronic diffuse abdominal pain that has not changed since July. Her last paracentesis was in October, since then she has been taking lactulose, spironolactone, Lasix 20 mg daily. She slipped and fell 2 weeks ago, hitting her head, her CT head/C-spine then were normal. She denies fever, headache, cough, chest pain, dysuria. ROS: A 10-point review of systems, other than pertinent positives and negatives as stated per HPI, is otherwise negative Past medical history: No additional pertinent history Past Surgical history: No additional pertinent history Social history: No additional pertinent history Family history: No additional pertinent history PHYSICAL EXAM General: AOx4, GCS = 15, No distress HEENT: dry mucous membrane Neck: supple, no meningismus, no Kernig or Brudzinski Cardiac: S1S2 tachycardia Respiratory: CTAB, no crackles or rales, no wheezing Abdomen: Soft, mild diffuse abdominal tenderness, no fluid wave, no rebound or guarding, nondistended, no pulsatile mass. Back: Bilateral CVAT Musculoskeletal: NVI distally, no deformity Neuro: No focal deficits, no asterixis back area Pain Score (Numeric/FACES): 8 - Related Data Allergies Allergy/AdvReac Type Severity Reaction Status Date / Time No Known Allergies Allergy Verified 02/09/21 20:10 Home Meds: Home Meds Furosemide [Lasix] 20 mg PO DAILY tablet 11/17/20 [Rx] Lactulose 10 gm PO BID PRN 10 Days #1 bottle 11/17/20 [Rx] LORazepam [Ativan] 0.5 mg PO BID PRN 12/10/20 [History] Spironolactone [Aldactone] 50 mg PO DAILY 12/10/20 [History] oxyCODONE 10 mg PO DAILY PRN 12/10/20 [History] Omeprazole Magnesium [Prilosec Otc] 20 mg PO BID PRN 01/05/21 [History] Acetaminophen/HYDROcodone [Jefferson 325-10 MG] 1 tab PO Q6H PRN #10 tablet 02/02/21 [Rx] Ondansetron [Zofran ODT] 4 mg PO Q6H PRN #12 tab.dis 02/09/21 [Rx] Past Medical History HEENT History: Reports: None Other HEENT History: Yellow sclera Cardiovascular History: Reports: None Respiratory History: Reports: Other (See Below) Other Respiratory History: Pluerisy Gastrointestinal History: Reports: Cirrhosis, Other (See Below) Other Gastrointestinal History: heartburn Genitourinary History: Reports: Other (See Below) Other Genitourinary History: yeast infection during [employer] History: Reports: Musculoskeletal History: Reports: Back Pain, Chronic Other Musculoskeletal History: hx herniated disc in lower back Neurological History: Reports: None Psychiatric History: Reports: Anxiety Endocrine/Metabolic History: Reports: None Insulin Pump Model and Retread Technician: None Hematologic History: Reports: None Immunologic History: Reports: None Oncologic (Cancer) History: Reports: Cervix Dermatologic History: Reports: None - Infectious Disease History Infectious Disease History: Reports: Chicken Pox, Influenza, Novel Coronavirus - Past Surgical History Head Surgeries/Procedures: Reports: None HEENT Surgical History: Reports: Oral Surgery Other HEENT Surgeries/Procedures: teeth removed at 26 years of age wears dentures Respiratory Surgical History: Reports: None GI Surgical History: Reports: Other (See Below) Other GI Surgeries/Procedures: Weekly paracentesis in [place] Female Surgical History: Reports: None Musculoskeletal Surgical History: Reports: None Oncologic Surgical History: Reports: Other (See Below) Other Oncologic Surgeries/Procedures: LEEP Social & Family History - Family History Family Medical History: No Pertinent Family History HEENT: Reports: Cataract, Glaucoma, Impaired Vision Cardiac: Reports: CAD, High Cholesterol, Hypertension GI: Reports: Cholelithiasis, Hepatitis OBGYN: Reports: Endometriosis Musculoskeletal: Reports: Arthritis, Back pain, Chronic, Neck Pain, Chronic, Osteoarthritis, RA Neurological: Reports: Alzheimers Disease, Dementia, Parkinson's Psychiatric: Reports: ADD, ADHD, Anxiety, Depression, Emotional Problems, Learning Disability, Mood Swings, Panic Attack Endocrine/Metabolic: Reports: Diabetes, type II, Hyperthyroidism Oncologic: Reports: Leukemia - Caffeine Use Caffeine Use: Reports: None ED ROS GENERAL - Review of Systems Review Of Systems: See Below (see dictation) ED EXAM, GENERAL - Physical Exam Exam: See Below (see dictation) #1 Interpretation EKG Interpretation Comments: Heart rate = 78 bpm, normal sinus rhythm, normal QRS interval, no STEMI. EKG and rhythm strip interpreted by me at 2058 Course - Vital Signs Last Recorded V/S: Last Vital Signs Temp 97.6 F 02/09/21 20:05 Pulse 109 H 02/09/21 20:05 Resp 18 02/09/21 21:15 BP 102/58 L 02/09/21 21:15 Pulse Ox 97 02/09/21 21:15 - Orders/Labs/Meds Orders: Active Orders 24 hr Category Date Time Status Cardiac Monitoring [RC] . DIRECTED Care 02/09/21 20:28 Active EKG Documentation Completion [RC] STAT Care 02/09/21 20:29 Active Pulse Oximetry [RC] ASDIRECTED Care 02/09/21 20:28 Active Sodium Chloride 0.9% [Saline Flush] Med 02/09/21 20:28 Active 10 ml FLUSH ASDIRECTED PRN Sodium Chloride 0.9% [Saline Flush] Med 02/09/21 20:28 Active 2.5 ml FLUSH ASDIRECTED PRN Saline Lock Insert [OM.PC] Stat Oth 02/09/21 20:28 Ordered Medication Orders Sodium Chloride (Sodium Chloride 0.9% 10 Ml Syringe) 10 ml FLUSH ASDIRECTED PRN PRN Reason: Keep Vein Open Sodium Chloride (Sodium Chloride 0.9% 2.5 Ml Syringe) 2.5 ml FLUSH ASDIRECTED PRN PRN Reason: Keep Vein Open Labs: Laboratory Tests 0402/09/21 02/09/21 Range/Units 20:55 20:55 20:55 WBC (4.0-11.0) K/uL RBC (4.30-5.90) M/uL Hgb (12.0-16.0) g/dL Hct (36.0-46.0) % MCV (80.0-98.0) fL MCH (27.0-32.0) pg MCHC (31.0-37.0) g/dL RDW Std Deviation (28.0-62.0) fl RDW Coeff of Blue (11.0-15.0) % Plt Count (150-400) K/uL MPV (7.40-12.00) fL Neut % (Auto) (48.0-80.0) % Lymph % (Auto) (16.0-40.0) % Oldham % (Auto) (0.0-15.0) % Eos % (Auto) (0.0-7.0) % Baso % (Auto) (0.0-1.5) % Neut # (Auto) (1.4-5.7) K/uL Lymph # (Auto) (0.6-2.4) K/uL Oldham # (Auto) (0.0-0.8) K/uL Eos # (Auto) (0.0-0.7) K/uL Baso # (Auto) (0.0-0.1) K/uL Nucleated RBC % /100WBC Nucleated RBCs # K/uL INR APTT (18.6-31.3) SEC Lactate (0.20-2.00) mmol/L Sodium (136-145) mmol/L Potassium (3.5-5.1) mmol/L Chloride (98-107) mmol/L Carbon Dioxide (21.0-32.0) mmol/L BUN (7.0-18.0) mg/dL Creatinine (0.6-1.0) mg/dL Est Cr Clr Drug Dosing mL/min Estimated GFR (MDRD) ml/min Glucose (74-106) mg/dL Calcium (8.5-10.1) mg/dL Phosphorus (2.6-4.7) mg/dL Magnesium (1.8-2.4) mg/dL Ammonia (19-54) ug/dL Troponin I (0.000-0.056) ng/mL Lipase (73-393) U/L Urine Color YELLOW Urine Appearance CLOUDY Urine pH 6.0 (5.0-8.0) Ur Specific Garrison >= 1.030 (1.001-1.035) Urine Protein TRACE H (NEGATIVE) mg/dL Urine Glucose (UA) NEGATIVE (NEGATIVE) mg/dL Urine Ketones NEGATIVE (NEGATIVE) mg/dL Urine Occult Blood MODERATE H (NEGATIVE) Urine Nitrite NEGATIVE (NEGATIVE) Urine Bilirubin NEGATIVE (NEGATIVE) Urine Urobilinogen 1.0 (<2.0) EU/dL Ur Leukocyte Esterase NEGATIVE (NEGATIVE) Urine RBC 0-3 (0-2/HPF) Urine WBC 1-3 (0-5/HPF) Ur Epithelial Cells RARE (NONE-FEW) Urine Bacteria FEW (NEGATIVE) Urine Mucus LIGHT (NONE-MOD) Urine Opiates Screen NEGATIVE (NEGATIVE) Ur Oxycodone Screen NEGATIVE (NEGATIVE) Urine Methadone Screen NEGATIVE (NEGATIVE) Ur Barbiturates Screen NEGATIVE (NEGATIVE) Ur Phencyclidine Scrn NEGATIVE (NEGATIVE) Ur Amphetamine Screen NEGATIVE (NEGATIVE) U Methamphetamines Scrn NEGATIVE (NEGATIVE) U Benzodiazepines Scrn POSITIVE (NEGATIVE) U Cocaine Metab Screen NEGATIVE (NEGATIVE) U Marijuana (THC) Screen NEGATIVE (NEGATIVE) Ethyl Alcohol mg/dL SARS-CoV-2 RNA (TORITO) NEGATIVE (NEGATIVE) 02/09/21 02/09/21 02/09/21 Range/Units 21:30 21:30 21:30 WBC 4.25 (4.0-11.0) K/uL RBC 3.54 L (4.30-5.90) M/uL Hgb 10.4 L (12.0-16.0) g/dL Hct 32.2 L (36.0-46.0) % MCV 91.0 (80.0-98.0) fL MCH 29.4 (27.0-32.0) pg MCHC 32.3 (31.0-37.0) g/dL RDW Std Deviation 49.3 (28.0-62.0) fl RDW Coeff of Blue 15 (11.0-15.0) % Plt Count 201 (150-400) K/uL MPV 11.50 (7.40-12.00) fL Neut % (Auto) 47.5 L (48.0-80.0) % Lymph % (Auto) 44.2 H (16.0-40.0) % Oldham % (Auto) 5.9 (0.0-15.0) % Eos % (Auto) 1.9 (0.0-7.0) % Baso % (Auto) 0.5 (0.0-1.5) % Neut # (Auto) 2.0 (1.4-5.7) K/uL Lymph # (Auto) 1.9 (0.6-2.4) K/uL Oldham # (Auto) 0.3 (0.0-0.8) K/uL Eos # (Auto) 0.1 (0.0-0.7) K/uL Baso # (Auto) 0.0 (0.0-0.1) K/uL Nucleated RBC % 0.0 /100WBC Nucleated RBCs # 0 K/uL INR APTT (18.6-31.3) SEC Lactate 2.4 H* (0.20-2.00) mmol/L Sodium 144 (136-145) mmol/L Potassium 3.2 L (3.5-5.1) mmol/L Chloride 108 H (98-107) mmol/L Carbon Dioxide 27.6 (21.0-32.0) mmol/L BUN 8 (7.0-18.0) mg/dL Creatinine 0.7 (0.6-1.0) mg/dL Est Cr Clr Drug Dosing 86.72 mL/min Estimated GFR (MDRD) > 60.0 ml/min Glucose 83 (74-106) mg/dL Calcium 8.3 L (8.5-10.1) mg/dL Phosphorus 4.5 (2.6-4.7) mg/dL Magnesium 2.0 (1.8-2.4) mg/dL Ammonia (19-54) ug/dL Troponin I < 0.050 (0.000-0.056) ng/mL Lipase 637 H (73-393) U/L Urine Color Urine Appearance Urine pH (5.0-8.0) Ur Specific Garrison (1.001-1.035) Urine Protein (NEGATIVE) mg/dL Urine Glucose (UA) (NEGATIVE) mg/dL Urine Ketones (NEGATIVE) mg/dL Urine Occult Blood (NEGATIVE) Urine Nitrite (NEGATIVE) Urine Bilirubin (NEGATIVE) Urine Urobilinogen (<2.0) EU/dL Ur Leukocyte Esterase (NEGATIVE) Urine RBC (0-2/HPF) Urine WBC (0-5/HPF) Ur Epithelial Cells (NONE-FEW) Urine Bacteria (NEGATIVE) Urine Mucus (NONE-MOD) Urine Opiates Screen (NEGATIVE) Ur Oxycodone Screen (NEGATIVE) Urine Methadone Screen (NEGATIVE) Ur Barbiturates Screen (NEGATIVE) Ur Phencyclidine Scrn (NEGATIVE) Ur Amphetamine Screen (NEGATIVE) U Methamphetamines Scrn (NEGATIVE) U Benzodiazepines Scrn (NEGATIVE) U Cocaine Metab Screen (NEGATIVE) U Marijuana (THC) Screen (NEGATIVE) Ethyl Alcohol < 3.0 mg/dL SARS-CoV-2 RNA (TORITO) (NEGATIVE) 02/09/21 02/09/21 02/09/21 Range/Units 21:30 21:50 23:10 WBC (4.0-11.0) K/uL RBC (4.30-5.90) M/uL Hgb (12.0-16.0) g/dL Hct (36.0-46.0) % MCV (80.0-98.0) fL MCH (27.0-32.0) pg MCHC (31.0-37.0) g/dL RDW Std Deviation (28.0-62.0) fl RDW Coeff of Blue (11.0-15.0) % Plt Count (150-400) K/uL MPV (7.40-12.00) fL Neut % (Auto) (48.0-80.0) % Lymph % (Auto) (16.0-40.0) % Oldham % (Auto) (0.0-15.0) % Eos % (Auto) (0.0-7.0) % Baso % (Auto) (0.0-1.5) % Neut # (Auto) (1.4-5.7) K/uL Lymph # (Auto) (0.6-2.4) K/uL Oldham # (Auto) (0.0-0.8) K/uL Eos # (Auto) (0.0-0.7) K/uL Baso # (Auto) (0.0-0.1) K/uL Nucleated RBC % /100WBC Nucleated RBCs # K/uL INR 1.24 APTT 26.5 (18.6-31.3) SEC Lactate 0.9 (0.20-2.00) mmol/L Sodium (136-145) mmol/L Potassium (3.5-5.1) mmol/L Chloride (98-107) mmol/L Carbon Dioxide (21.0-32.0) mmol/L BUN (7.0-18.0) mg/dL Creatinine (0.6-1.0) mg/dL Est Cr Clr Drug Dosing mL/min Estimated GFR (MDRD) ml/min Glucose (74-106) mg/dL Calcium (8.5-10.1) mg/dL Phosphorus (2.6-4.7) mg/dL Magnesium (1.8-2.4) mg/dL Ammonia 20 (19-54) ug/dL Troponin I (0.000-0.056) ng/mL Lipase (73-393) U/L Urine Color Urine Appearance Urine pH (5.0-8.0) Ur Specific Garrison (1.001-1.035) Urine Protein (NEGATIVE) mg/dL Urine Glucose (UA) (NEGATIVE) mg/dL Urine Ketones (NEGATIVE) mg/dL Urine Occult Blood (NEGATIVE) Urine Nitrite (NEGATIVE) Urine Bilirubin (NEGATIVE) Urine Urobilinogen (<2.0) EU/dL Ur Leukocyte Esterase (NEGATIVE) Urine RBC (0-2/HPF) Urine WBC (0-5/HPF) Ur Epithelial Cells (NONE-FEW) Urine Bacteria (NEGATIVE) Urine Mucus (NONE-MOD) Urine Opiates Screen (NEGATIVE) Ur Oxycodone Screen (NEGATIVE) Urine Methadone Screen (NEGATIVE) Ur Barbiturates Screen (NEGATIVE) Ur Phencyclidine Scrn (NEGATIVE) Ur Amphetamine Screen (NEGATIVE) U Methamphetamines Scrn (NEGATIVE) U Benzodiazepines Scrn (NEGATIVE) U Cocaine Metab Screen (NEGATIVE) U Marijuana (THC) Screen (NEGATIVE) Ethyl Alcohol mg/dL SARS-CoV-2 RNA (TORITO) (NEGATIVE) Meds: Medications Generic Name Dose Route Start Last Admin Trade Name Freq PRN Reason Stop Dose Admin Sodium Chloride 10 ml 02/09/21 20:28 Sodium Chloride 0.9% 10 Ml Syringe FLUSH ASDIRECTED PRN Keep Vein Open Sodium Chloride 2.5 ml 02/09/21 20:28 Sodium Chloride 0.9% 2.5 Ml Syringe FLUSH ASDIRECTED PRN Keep Vein Open Discontinued Medications Generic Name Dose Route Start Last Admin Trade Name Tanvir PRN Reason Stop Dose Admin Lactated Ringer's 1,000 mls @ 999 mls/hr 02/09/21 20:31 02/09/21 21:06 Ringers, Lactated IV 02/09/21 21:31 999 mls/hr STAT STA Administration Morphine Sulfate 4 mg 02/09/21 22:54 02/09/21 23:20 Morphine 4 Mg/Ml Syringe IVPUSH 02/09/21 22:55 4 mg ONETIME ONE Administration Potassium Chloride 40 meq 02/09/21 22:53 02/09/21 23:21 Potassium Chloride 20 Meq Tab.Er PO 02/09/21 22:54 40 meq ONETIME ONE Administration - Re-Assessments/Exams Free Text/Narrative Re-Assessment/Exam: 02/09/21 20:33 Order 1 L IV fluids. 02/09/21 23:30 After IV morphine and IVF in the ER, her lactate cleared to 0.9 from 2.4, her pain is improved, she feels better and wants to go home. She exhibits normal vital signs and has a normal gait on road test. I advised the patient to return to the ER for reevaluation if symptoms worsened, including fever, worsening pain, or any other worrisome symptoms. I instructed the patient to follow up with her PCP within 2-3 days. She has an appointment to see Dr. Bartholomew (GI) at [facility] on 02/24. MEDICAL DECISION MAKING: I reviewed the patients past medical records, lab and radiographic findings. I discussed the case with the patient. My differential diagnosis included: Ascites, pancreatitis, obstruction. Patient's lactic acid doses cleared after 1 L IV fluids. Her K = 3.3, repleted with p.o. repletion's. Her CT abdomen/pelvis did not reveal any ascites or bowel obstruction. Her lipase was elevated and improved with IV morphine. She has a prescription of oxycodone 10 as needed at home. She was also prescribed trazodone today. She also takes lorazepam 1 mg daily to aid with her sleep. She is comfortable getting discharged home and take her pain medication at home. She has a follow- up appointment already made with her GI doctor at [facility]. Departure - Departure Time of Disposition: 23:34 Disposition: Home, Self-Care 01 Condition: Good Clinical Impression: Hypokalemia, Cirrhosis of liver, Nausea, vomiting, and diarrhea, Dehydration Abdominal pain Qualifiers: Abdominal location: left upper quadrant Qualified Code(s): R10.12 - Left upper quadrant pain Pancreatitis Qualifiers: Chronicity: acute Pancreatitis type: unspecified pancreatitis type Acute pancreatitis complication: unspecified Qualified Code(s): K85.90 - Acute pancreatitis without necrosis or infection, unspecified - Discharge Information *PRESCRIPTION DRUG MONITORING PROGRAM REVIEWED*: Not Applicable *COPY OF PRESCRIPTION DRUG MONITORING REPORT IN PATIENT TATE: Not Applicable Prescriptions: Ondansetron [Zofran ODT] 4 mg PO Q6H PRN #12 tab.dis PRN Reason: Vomiting Instructions: Hypokalemia, Nausea and Vomiting, Adult, Acute Pancreatitis, [id number], Rehydration, Adult, Diarrhea, Adult, Pancreatitis Eating Plan Referrals: Carlin Mansfield MD [Primary Care Provider] - 3 Days Forms: ED Department Discharge Additional Instructions: The need for follow-up, as well as the timing and circumstances, are variable depending upon the specifics of your emergency department visit. If you don't have a primary care physician on staff, we will provide you with a referral. We always advise you to contact your personal physician following an emergency department visit to inform them of the circumstance of the visit and for follow-up with them and/or the need for any referrals to a consulting specialist. The emergency department will also refer you to a specialist when appropriate. This referral assures that you have the opportunity for follow-up care with a specialist. All of these measure are taken in an effort to provide you with optimal care, which includes your follow-up. Under all circumstances we always encourage you to contact your private physician who remains a resource for coordinating your care. When calling for follow-up care, please make the office aware that this follow-up is from your recent emergency room visit. If for any reason you are refused follow-up, please contact the [facility] Emergency Department at and asked to speak to the emergency department charge nurse. If you do not have a primary care doctor, please follow up with the clinics below within 3-5 days. [facility] [address] [place] [address] [facility] [address] [place] [address] Sepsis Event Note (ED) - Focused Exam Vital Signs: Vital Signs Temp Pulse Resp BP Pulse Ox 02/09/21 21:15 18 102/58 L 97 02/09/21 20:05 97.6 F 109 H 18 96/53 L 100 - My Orders Last 24 Hours: My Active Orders 02/09/21 20:28 Cardiac Monitoring [RC] . DIRECTED Pulse Oximetry [RC] ASDIRECTED Sodium Chloride 0.9% [Saline Flush] 10 ml FLUSH ASDIRECTED PRN Sodium Chloride 0.9% [Saline Flush] 2.5 ml FLUSH ASDIRECTED PRN Saline Lock Insert [OM.PC] Stat 02/09/21 20:29 EKG Documentation Completion [RC] STAT - Assessment/Plan Last 24 Hours: My Active Orders 02/09/21 20:28 Cardiac Monitoring [RC] . DIRECTED Pulse Oximetry [RC] ASDIRECTED Sodium Chloride 0.9% [Saline Flush] 10 ml FLUSH ASDIRECTED PRN Sodium Chloride 0.9% [Saline Flush] 2.5 ml FLUSH ASDIRECTED PRN Saline Lock Insert [OM.PC] Stat 02/09/21 20:29 EKG Documentation Completion [RC] STAT
[2021-02-09] MEDS ORDERED: Sodium Chloride 0.9% 2.5 ML Syringe FLUSH PRN (20:28)
[2021-02-09] MEDS ORDERED: Sodium Chloride 0.9% 10 ML Syringe FLUSH PRN (20:28)
[2021-02-09] MEDS ORDERED: Lactated Ringers 1,000 ML IV STA (20:31)
--- NOTE | 2021-02-09 21:33 | CT ---
Indication: Abdominal pain, history of colitis and ascites Technique: Nonenhanced axial CT imaging through the abdomen and pelvis. Sagittal and coronal reconstructions are provided. Comparison: CT abdomen pelvis with contrast 01/05/2021 Findings: There is unremarkable noncontrast appearance of the liver, spleen, pancreas, adrenal glands, and kidneys. A small hyperdense stone is noted in the gallbladder, which is otherwise contracted. There is no abdominal lymphadenopathy. There is normal caliber of the abdominal aorta. The stomach and duodenum are unremarkable. There are no abnormally dilated small bowel loops. The appendix is noninflamed. There is no colonic wall thickening or mesenteric edema. The urinary bladder, uterus, and adnexa are grossly unremarkable. No lymphadenopathy or free fluid appreciated in the pelvis. The osseous structures are unremarkable. The included lung bases are clear. Impression: 1. No acute process demonstrated, within limitations of noncontrast technique. 2. Incidental note of cholelithiasis, similar to prior. Please note that all CT scans at this facility use dose modulation, iterative reconstruction, and/or weight-based dosing when appropriate to reduce radiation dose to as low as reasonably achievable. Dictated by Ambrose Solomon MD @ Feb 09 2021 9:22PM Signed by Dr. Ambrose Solomon @ Feb 09 2021 9:31PM
[2021-02-09 22:12] LABS: BLOOD UREA NITROGEN,BUN 8 mg/dL (7.0-18.0); CARBON DIOXIDE,CO2 27.6 mmol/L (21.0-32.0); CHLORIDE,CL 108 mmol/L (98-107); GLUCOSE RANDOM 83 mg/dL (74-106); LIPASE 637 U/L (73-393); POTASSIUM,K 3.2 mmol/L (3.5-5.1); SODIUM,NA 144 mmol/L (136-145)
[2021-02-09] MEDS ORDERED: Potassium Chloride 20 MEQ Tab.ER PO ONE (22:53)
[2021-02-09] MEDS ORDERED: Morphine 4 MG/ML Syringe IVPUSH ONE (22:54)
== END 2021-02-09 23:45 | disposition home or self-care (01) ==
LOC: MW.ED 19:44
DX: E86.0 Dehydration (principal); K74.60 Unspecified cirrhosis of liver; K85.90 Acute pancreatitis without necrosis or infection, unspecified; E87.6 Hypokalemia; Z86.16 Personal history of COVID-19; Z79.899 Other long term (current) drug therapy; Z20.822 Contact with and (suspected) exposure to COVID-19
CPT/HCPCS: 36415; 74176; 80048; 80305; 80307; 81001; 82140; 83605; 83690; 83735; 84100; 84484; 85025; 85610; 85730; 87635; 93005; 96361; 96374; 99285; A9270; J2270; J7120; 93010; 99284; U0002

== ENCOUNTER 2021-02-21 22:24 | Emergency (ER) | payer SELFPAY ==
[2021-02-21] MEDS ORDERED: HYDROmorphone 2 MG/ML Syringe IVPUSH ONE (23:01)
[2021-02-21] MEDS ORDERED: Ondansetron 4 MG/2 ML SDV IVPUSH ONE (23:01)
[2021-02-21] MEDS ORDERED: Sodium Chloride 0.9% 1,000 ML IV ONE (23:01)
--- NOTE | 2021-02-21 23:19 | EDM.PDOC ---
ED HPI GENERAL MEDICAL PROBLEM - General Chief Complaint: Abdominal Pain Stated Complaint: POSIBLE PANCREATITIS, ABOMINAL PAIN Time Seen by Provider: 02/21/21 22:41 - History of Present Illness INITIAL COMMENTS - FREE TEXT/NARRATIVE: CHIEF COMPLAINT(S): "I have cirrhosis and my pancreatitis tends to act up." HISTORY OF PRESENT ILLNESS: This is a 35-year-old woman with a past medical history of cirrhosis secondary to alcohol use and pancreatitis who comes to the emergency department with a chief complaint of "I have cirrhosis and my pancreatitis tends to act up." The patient states that I have services in my pancreatitis tends to act up. She states that it started this morning while she was at work. She states that she is experiencing right and left abdominal pain which radiates together into the whole abdomen. She states that this is usually a sign that her pancreatitis is back. She states that she is dying and pain. She describes the pain as stabbing and cramping rated 9 out of 10. She states that initially this morning it was 5 out of 10. She describes the pain is constant associated with nausea. She denies any vomiting or blood in her stool. She states that her abdomen does appear to be mildly swollen however it is significantly better than it has been in the past. She states the last time she had it drained was November 14, 2020 and has been started on spironolactone and Lasix which has been helping. She denies any melena or hematochezia. She denies any fevers or chills. She denies any cough or shortness of breath. She states that she has not yet taken any pain medication because she is out of her oxycodone extended release at home. REVIEW OF SYSTEMS: Constitutional: Denies fever, chills. Eyes: Denies eye pain Ears, Nose, Mouth, & Throat: Denies earache Cardiovascular: Denies chest pain Respiratory: Denies shortness of breath Gastrointestinal: Positive for abdominal pain and nausea. Denies vomiting, melena, hematochezia, hematemesis, bilious emesis Genitourinary: Denies hematuria, dysuria Skin:Denies a rash MSK: Denies joint pain Neurological: Denies blurred vision Psychiatric: Denies depression PAST MEDICAL HISTORY: As per history of present illness and as reviewed below otherwise noncontributory. SURGICAL HISTORY: As per history of present illness and as reviewed below otherwise noncontributory. SOCIAL HISTORY: As per history of present illness and as reviewed below otherwise noncontributory. FAMILY HISTORY: As per history of present illness and as reviewed below otherwise noncontributory. EXAMINATION OF ORGAN SYSTEMS/BODY AREAS: Constitutional: Blood pressure was 99/55, heart rate 97, respiratory rate 18 with an oxygen saturation 98% on room air. Temperature 36.3 General: Overall well-appearing woman who is in no acute distress Psychiatric: Appropriate mood and affect. Eyes: No scleral icterus or conjunctival erythema ENMT: Moist mucous membranes. No pharyngeal erythema Cardiovascular: Regular, rate, and rhythm. No gallops, murmurs, or rubs. Bilateral upper extremity pulses symmetric and intact. No peripheral edema. No JVD. Respiratory: Lungs clear to auscultation bilaterally. No wheezes, rales, or rhonchi. Gastrointestinal: Soft, nondistended, tenderness to palpation throughout the abdomen. No rebound or guarding. Normoactive bowel sounds Genitourinary: No suprapubic tenderness no CVA tenderness Musculoskeletal: Normal range of motion. Skin: No lesions or abrasions. Neurological: Alert, GCS 15 MEDICAL DECISION MAKING AND COURSE IN THE ED WITH INTERPRETATION/REVIEW OF DIAGNOSTIC STUDIES: This is a 35-year-old with a past medical history of cirrhosis secondary to alcohol use and pancreatitis who comes to the emergency department with diffuse abdominal pain associated with nausea which she describes as similar to her prior pancreatitis episodes. At this time I do not believe the patient requires any imaging we will provide the patient with Zofran, Dilaudid, and 1 L of normal saline. We will obtain labs including CBC, CMP, lipase, ammonia. We will reevaluate after. The patient does have frequent imaging without any known history of pancreatic pseudocyst or necrotic pancreatitis. Laboratory: CBC reveals a normocytic anemia with a hemoglobin of 10.2 and hematocrit of 30.9 which is unchanged from prior. Lactic acid is 1.9. CMP reveals hyponatremia at 146, hypokalemia at 3.4, hyperchloremia at 109, no metabolic acidosis with a bicarb of 28.2. AST and ALT are normal. Bilirubin is normal. Lipase is elevated at 484 which is decreased from prior on February 09, 2021 at 637. On reevaluation, the patient stated that her pain had improved. At this time her vitals are normal. I did discuss with her the option of admission versus discharge. She did elect for discharge. I did provide the patient with 1 tablet of OxyContin and sent her a prescription for OxyContin as this is her home dose. I did discuss with her that I am only going to give her a 3-day supply until she follows up with her GI specialist. I discussed with her that she needed to obtain her pain medication prescriptions from her primary care doctor or her GI specialist. I did provide her with a prescription for Zofran. She is to return for any new or worsening symptoms. She was amenable to discharge at this time and had no further questions. DISPOSITION: The patient was discharged home in stable condition. The patient will follow up with GI specialist in 3 days CONDITION: Fair PROCEDURES: None FINAL IMPRESSION(S)/DIAGNOSES: 1. Acute on chronic mild pancreatitis Antony Chacon M.D. Mid-Anterior Abdomen Pain Score (Numeric/FACES): 10 - Related Data Allergies Allergy/AdvReac Type Severity Reaction Status Date / Time No Known Allergies Allergy Verified 02/21/21 22:38 Home Meds: Home Meds Furosemide [Lasix] 20 mg PO DAILY tablet 11/17/20 [Rx] Lactulose 10 gm PO BID PRN 10 Days #1 bottle 11/17/20 [Rx] LORazepam [Ativan] 0.5 mg PO BID PRN 12/10/20 [History] Spironolactone [Aldactone] 50 mg PO DAILY 12/10/20 [History] oxyCODONE 10 mg PO DAILY PRN 12/10/20 [History] Omeprazole Magnesium [Prilosec Otc] 20 mg PO BID PRN 01/05/21 [History] Acetaminophen/HYDROcodone [[place] 325-10 MG] 1 tab PO Q6H PRN #10 tablet 02/02/21 [Rx] Ondansetron [Zofran ODT] 4 mg PO Q6H PRN #12 tab.dis 02/09/21 [Rx] Ondansetron [Zofran ODT] 4 mg PO Q6H PRN #12 tab.dis 02/22/21 [Rx] oxyCODONE ER [OxyCONTIN] 10 mg PO Q12H PRN #6 tab.er 02/22/21 [Rx] Past Medical History HEENT History: Reports: None Other HEENT History: Yellow sclera Cardiovascular History: Reports: None Respiratory History: Reports: Other (See Below) Other Respiratory History: Pluerisy Gastrointestinal History: Reports: Cirrhosis, Other (See Below) Other Gastrointestinal History: heartburn Genitourinary History: Reports: Other (See Below) Other Genitourinary History: yeast infection during [employer] History: Reports: Musculoskeletal History: Reports: Back Pain, Chronic Other Musculoskeletal History: hx herniated disc in lower back Neurological History: Reports: None Psychiatric History: Reports: Anxiety Endocrine/Metabolic History: Reports: None Insulin 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 Model and Power Saw 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 Hematologic History: Reports: None Immunologic History: Reports: None Oncologic (Cancer) History: Reports: Cervix Dermatologic History: Reports: None - Infectious Disease History Infectious Disease History: Reports: Chicken Pox, Influenza, Novel Coronavirus - Past Surgical History Head Surgeries/Procedures: Reports: None HEENT Surgical History: Reports: Oral Surgery Other HEENT Surgeries/Procedures: teeth removed at 26 years of age wears dentures Respiratory Surgical History: Reports: None GI Surgical History: Reports: Other (See Below) Other GI Surgeries/Procedures: Weekly paracentesis in [facility] Female Surgical History: Reports: None Musculoskeletal Surgical History: Reports: None Oncologic Surgical History: Reports: Other (See Below) Other Oncologic Surgeries/Procedures: LEEP Social & Family History - Family History Family Medical History: No Pertinent Family History HEENT: Reports: Cataract, Glaucoma, Impaired Vision Cardiac: Reports: CAD, High Cholesterol, Hypertension GI: Reports: Cholelithiasis, Hepatitis OBGYN: Reports: Endometriosis Musculoskeletal: Reports: Arthritis, Back pain, Chronic, Neck Pain, Chronic, Osteoarthritis, RA Neurological: Reports: Alzheimers Disease, Dementia, Parkinson's Psychiatric: Reports: ADD, ADHD, Anxiety, Depression, Emotional Problems, Learning Disability, Mood Swings, Panic Attack Endocrine/Metabolic: Reports: Diabetes, type II, Hyperthyroidism Oncologic: Reports: Leukemia - Caffeine Use Caffeine Use: Reports: Soda ED ROS GENERAL - Review of Systems Review Of Systems: See Below ED EXAM, GENERAL - Physical Exam Exam: See Below Course - Vital Signs Last Recorded V/S: Last Vital Signs Temp 36.3 C 02/21/21 22:41 Pulse 95 02/22/21 01:06 Resp 18 02/22/21 01:06 BP 97/63 02/22/21 01:06 Pulse Ox 99 02/22/21 01:06 - Orders/Labs/Meds Labs: Laboratory Tests 02/21/21 02/21/21 02/21/21 Range/Units 23:15 23:15 23:15 WBC 4.68 (4.0-11.0) K/uL RBC 3.36 L (4.30-5.90) M/uL Hgb 10.2 L (12.0-16.0) g/dL Hct 30.9 L (36.0-46.0) % MCV 92.0 (80.0-98.0) fL MCH 30.4 (27.0-32.0) pg MCHC 33.0 (31.0-37.0) g/dL RDW Std Deviation 53.0 (28.0-62.0) fl RDW Coeff of Blue 16 H (11.0-15.0) % Plt Count 200 (150-400) K/uL MPV 11.10 (7.40-12.00) fL Neut % (Auto) 49.8 (48.0-80.0) % Lymph % (Auto) 38.2 (16.0-40.0) % [place] % (Auto) 6.8 (0.0-15.0) % Eos % (Auto) 4.1 (0.0-7.0) % Baso % (Auto) 1.1 (0.0-1.5) % Neut # (Auto) 2.3 (1.4-5.7) K/uL Lymph # (Auto) 1.8 (0.6-2.4) K/uL [place] # (Auto) 0.3 (0.0-0.8) K/uL Eos # (Auto) 0.2 (0.0-0.7) K/uL Baso # (Auto) 0.1 (0.0-0.1) K/uL Nucleated RBC % 0.0 /100WBC Nucleated RBCs # 0 K/uL Lactate 1.5 (0.20-2.00) mmol/L Sodium 146 H (136-145) mmol/L Potassium 3.4 L (3.5-5.1) mmol/L Chloride 109 H (98-107) mmol/L Carbon Dioxide 28.2 (21.0-32.0) mmol/L BUN 7 (7.0-18.0) mg/dL Creatinine 0.7 (0.6-1.0) mg/dL Est Cr Clr Drug Dosing 81.15 mL/min Estimated GFR (MDRD) > 60.0 ml/min Glucose 97 (74-106) mg/dL Calcium 8.9 (8.5-10.1) mg/dL Total Bilirubin 0.2 (0.2-1.0) mg/dL AST 14 L (15-37) IU/L ALT 15 (14-63) IU/L Alkaline Phosphatase 67 (46-116) U/L Ammonia (19-54) ug/dL Total Protein 6.0 L (6.4-8.2) g/dL Albumin 3.0 L (3.4-5.0) g/dL Globulin 3.0 (2.6-4.0) g/dL Albumin/Globulin Ratio 1.0 (0.9-1.6) Lipase 484 H (73-393) U/L 02/21/21 Range/Units 23:15 WBC (4.0-11.0) K/uL RBC (4.30-5.90) M/uL Hgb (12.0-16.0) g/dL Hct (36.0-46.0) % MCV (80.0-98.0) fL MCH (27.0-32.0) pg MCHC (31.0-37.0) g/dL RDW Std Deviation (28.0-62.0) fl RDW Coeff of Blue (11.0-15.0) % Plt Count (150-400) K/uL MPV (7.40-12.00) fL Neut % (Auto) (48.0-80.0) % Lymph % (Auto) (16.0-40.0) % [place] % (Auto) (0.0-15.0) % Eos % (Auto) (0.0-7.0) % Baso % (Auto) (0.0-1.5) % Neut # (Auto) (1.4-5.7) K/uL Lymph # (Auto) (0.6-2.4) K/uL [place] # (Auto) (0.0-0.8) K/uL Eos # (Auto) (0.0-0.7) K/uL Baso # (Auto) (0.0-0.1) K/uL Nucleated RBC % /100WBC Nucleated RBCs # K/uL Lactate (0.20-2.00) mmol/L Sodium (136-145) mmol/L Potassium (3.5-5.1) mmol/L Chloride (98-107) mmol/L Carbon Dioxide (21.0-32.0) mmol/L BUN (7.0-18.0) mg/dL Creatinine (0.6-1.0) mg/dL Est Cr Clr Drug Dosing mL/min Estimated GFR (MDRD) ml/min Glucose (74-106) mg/dL Calcium (8.5-10.1) mg/dL Total Bilirubin (0.2-1.0) mg/dL AST (15-37) IU/L ALT (14-63) IU/L Alkaline Phosphatase (46-116) U/L Ammonia 54 (19-54) ug/dL Total Protein (6.4-8.2) g/dL Albumin (3.4-5.0) g/dL Globulin (2.6-4.0) g/dL Albumin/Globulin Ratio (0.9-1.6) Lipase (73-393) U/L Meds: Medications Discontinued Medications Generic Name Dose Route Start Last Admin Trade Name Freq PRN Reason Stop Dose Admin Hydromorphone HCl 1 mg 02/21/21 23:01 02/21/21 23:11 Hydromorphone 2 Mg/Ml Syringe IVPUSH 02/21/21 23:02 1 mg ONETIME ONE Administration Sodium Chloride 1,000 mls @ 999 mls/hr 02/21/21 23:01 02/21/21 23:11 Normal Saline IV 02/22/21 00:01 999 mls/hr .Bolus ONE Administration Ondansetron HCl 4 mg 02/21/21 23:01 02/21/21 23:11 Ondansetron 4 Mg/2 Ml Sdv IVPUSH 02/21/21 23:02 4 mg ONETIME ONE Administration Oxycodone HCl 10 mg 02/22/21 00:37 02/22/21 00:48 Oxycodone Er 10 Mg Tab.Er PO 02/22/21 00:38 10 mg ONETIME ONE Administration Potassium Chloride 40 meq 02/21/21 23:40 02/22/21 00:07 Potassium Chloride 10% 20 Meq/15 Ml Soln 30 Ml Ud Cup PO 02/21/21 23:41 40 meq ONETIME ONE Administration Departure - Departure Time of Disposition: 00:38 Disposition: Home, Self-Care 01 Condition: Fair Clinical Impression: Pancreatitis Qualifiers: Chronicity: acute Pancreatitis type: unspecified pancreatitis type Acute pancreatitis complication: unspecified Qualified Code(s): K85.90 - Acute pancreatitis without necrosis or infection, unspecified - Discharge Information Prescriptions: oxyCODONE ER [OxyCONTIN] 10 mg PO Q12H PRN #6 tab.er PRN Reason: Pain Ondansetron [Zofran ODT] 4 mg PO Q6H PRN #12 tab.dis PRN Reason: Nausea Instructions: Pancreatitis Eating Plan, Acute Pancreatitis Referrals: Carlin Mansfield MD [Primary Care Provider] - Forms: ED Department Discharge Additional Instructions: Your evaluated today on an emergent basis. At this time you were able to tolerate p.o. There is evidence of some mild pancreatitis. I do recommend the use of oxycodone 10 mg twice a day. I would like you to keep your appointment with GI on Tuesday. If you have any worsening symptoms you are welcome to return to the emergency department. [facility] [address] [place] [address] [place] [address] The patient is informed of any results of their evaluation and diagnostic workup and all questions are answered. They are given discharge instructions and return precautions. The patient is stable for discharge. The patient states they understand and agree with the plan and that they will return if their symptoms get worse or if they have any new concerns. The following information is given to patients seen in the emergency department who are being discharged to home. This information is to outline your options for follow-up care. We provide all patients seen in our emergency department with a follow-up referral. The need for follow-up, as well as the timing and circumstances, are variable depending upon the specifics of your emergency department visit. If you don't have a primary care physician on staff, we will provide you with a referral. We always advise you to contact your personal physician following an emergency department visit to inform them of the circumstance of the visit and for follow-up with them and/or the need for any referrals to a consulting specialist. The emergency department will also refer you to a specialist when appropriate. This referral assures that you have the opportunity for follow-up care with a specialist. All of these measure are taken in an effort to provide you with optimal care, which includes your follow-up. Under all circumstances we always encourage you to contact your private physician who remains a resource for coordinating your care. When calling for follow-up care, please make the office aware that this follow-up is from your recent emergency room visit. If for any reason you are refused follow-up, please contact the [facility] Emergency Department at and asked to speak to the emergency department charge nurse. Sepsis Event Note (ED) - Evaluation Sepsis Screening Result: No Definite Risk - Focused Exam Vital Signs: Vital Signs Temp Pulse Resp BP Pulse Ox 02/22/21 01:06 95 18 97/63 99 02/21/21 22:41 36.3 C 97 18 99/55 L 98
[2021-02-21 23:37] LABS: BLOOD UREA NITROGEN,BUN 7 mg/dL (7.0-18.0); CARBON DIOXIDE,CO2 28.2 mmol/L (21.0-32.0); CHLORIDE,CL 109 mmol/L (98-107); GLUCOSE RANDOM 97 mg/dL (74-106); LIPASE 484 U/L (73-393); POTASSIUM,K 3.4 mmol/L (3.5-5.1); SODIUM,NA 146 mmol/L (136-145)
[2021-02-21] MEDS ORDERED: Potassium Chloride 10% 20 MEQ/15 ML Soln 30 ML UD Cup PO ONE (23:40)
[2021-02-22] MEDS ORDERED: oxyCODONE ER 10 MG TAB.ER PO ONE (00:37)
== END 2021-02-22 01:09 | disposition home or self-care (01) ==
LOC: MW.ED 22:24
DX: K85.90 Acute pancreatitis without necrosis or infection, unspecified (principal); Z79.899 Other long term (current) drug therapy
CPT/HCPCS: 36415; 80053; 82140; 83605; 83690; 85025; 96374; 96375; 99284; A9270; J1170; J2405; J7030

== ENCOUNTER 2021-03-02 13:32 | Emergency (ER) | payer BC ==
[2021-03-02] MEDS ORDERED: Morphine 4 MG/ML Syringe IVPUSH ONE (14:17)
[2021-03-02] MEDS ORDERED: Ondansetron 4 MG/2 ML SDV IVPUSH ONE (14:38)
[2021-03-02] MEDS ORDERED: diphenhydrAMINE 25 MG Cap PO ONE (15:06)
[2021-03-02 15:12] LABS: BLOOD UREA NITROGEN,BUN 6 mg/dL (7.0-18.0); CARBON DIOXIDE,CO2 23.3 mmol/L (21.0-32.0); CHLORIDE,CL 104 mmol/L (98-107); GLUCOSE RANDOM 112 mg/dL (74-106); LIPASE 364 U/L (73-393); POTASSIUM,K 3.7 mmol/L (3.5-5.1); SODIUM,NA 140 mmol/L (136-145)
--- NOTE | 2021-03-02 16:12 | CT ---
INDICATION: Hematemesis; pancreatitis; history of liver cirrhosis. COMPARISON: CT abdomen and pelvis December 21, 2020 and February 09, 2021. TECHNIQUE: CT abdomen and pelvis with intravenous contrast; coronal and sagittal reformats. FINDINGS: No abnormal intra pulmonary nodular densities through the lung bases . No evidence of pleural effusion. Normal size cardiac silhouette without any evidence of pericardial effusion. No focal hepatic or splenic pathology. no pancreatic pathology. No peripancreatic inflammatory changes . No evidence of pancreatic ductal dilatation. Cholelithiasis. No adrenal pathology. No kidney stones or obstructive uropathy. No retroperitoneal lymphadenopathy. Normal appendix. Diverticulosis sigmoid colon without any CT evidence of diverticulitis or abscess. CT study of the pelvis is unremarkable. Impression: 1. Normal appendix. 2. No kidneys stones or obstructive uropathy. 3. Non cirrhotic liver. 4. Negative CT abdomen and pelvis with intravenous contrast otherwise. Please note that all CT scans at this facility use dose modulation, iterative reconstruction, and/or weight-based dosing when appropriate to reduce radiation dose to as low as reasonably achievable. Dictated by Swathi Reveles MD @ 03/02/2021 4:11:[address] Swathi Reveles @ Mar 02 2021 4:11PM
[2021-03-02] MEDS ORDERED: oxyCODONE ER 10 MG TAB.ER PO ONE (16:15)
[2021-03-02] MEDS ORDERED: Sodium Chloride 0.9% 1,000 ML IV SCH (16:15)
[2021-03-02] MEDS ORDERED: Iopamidol 755 MG/ML 500 ML Multipack Bottle IVPUSH STA (17:13)
--- NOTE | 2021-03-02 17:35 | EDM.PDOC ---
ED HPI GENERAL MEDICAL PROBLEM - General Chief Complaint: Abdominal Pain Stated Complaint: VOMITING BLOOD Time Seen by Provider: 03/02/21 13:50 - History of Present Illness INITIAL COMMENTS - FREE TEXT/NARRATIVE: CHIEF COMPLAINT(S): Vomiting blood HISTORY OF PRESENT ILLNESS: This is a 35-year-old woman with a past medical history of cirrhosis secondary to alcohol use and pancreatitis who comes to the emergency department with a chief complaint of vomiting blood. The patient states that approximately 5 hours prior to arrival she had 1 episode of vomiting with streaks of blood in her vomit and then additional episode happened approximately 3 hours later. She states that she called and was told to come to the ER. She states that she has not had any further episodes of vomiting. She states that she does not know if she has any esophageal varices and denies any prior GI bleeds. She states that she is experiencing pain in her stomach which radiates from the left lower quadrant and right upper quadrant to the middle. She states this feels similar to her pancreatitis. She is describes the pain as stabbing/cramping radiating to the middle of her abdomen rated 9 out of 10. She denies any aggravating or relieving factors. She has not yet taken any medication. She states that "I am a frequent flyer." She states that she did see Dr. Bartholomew who is a GI specialist who did not recommend EGD at that time. This was approximately 1 week ago. She denies any melena, hematochezia. She states that she did eat some red meat approximately 2 days ago and took an extra lactulose because she was concerned that her ammonia would be elevated. She denies any other symptoms. REVIEW OF SYSTEMS: Constitutional: Denies fever, chills. Eyes: Denies eye pain Ears, Nose, Mouth, & Throat: Denies earache Cardiovascular: Denies chest pain Respiratory: Denies shortness of breath Gastrointestinal: Positive for abdominal pain, vomiting, streaked blood in vomit. Denies diarrhea, hematochezia, melena, bilious emesis Genitourinary: Denies hematuria Skin:Denies a rash MSK: Denies joint pain Neurological: Denies blurred vision Psychiatric: Denies depression PAST MEDICAL HISTORY: As per history of present illness and as reviewed below otherwise noncontributory. SURGICAL HISTORY: As per history of present illness and as reviewed below otherwise noncontributory. SOCIAL HISTORY: As per history of present illness and as reviewed below otherwise noncontributory. FAMILY HISTORY: As per history of present illness and as reviewed below otherwise noncontributory. EXAMINATION OF ORGAN SYSTEMS/BODY AREAS: Constitutional: Blood pressure is 105/66, heart rate 86, respiratory rate 18 with an oxygen saturation of 100% on room air. Temperature 36.0 General: Young woman who does not appear to be in acute distress. Psychiatric: Appropriate mood and affect. Eyes: No scleral icterus or conjunctival erythema ENMT: Moist mucous membranes. No pharyngeal erythema no blood in the oropharynx. Cardiovascular: Regular, rate, and rhythm. No gallops, murmurs, or rubs. Bilateral upper extremity pulses symmetric and intact. No peripheral edema. No JVD. Respiratory: Lungs clear to auscultation bilaterally. No wheezes, rales, or rhonchi. Gastrointestinal: Soft, diffusely tender to palpation. Nondistended. No rebound or guarding. Negative Zepeda's and McBurney's. Normoactive bowel sounds Genitourinary: No suprapubic tenderness no CVA tenderness Musculoskeletal: Normal range of motion. Skin: No lesions or abrasions. Neurological: Alert, GCS 15 MEDICAL DECISION MAKING AND COURSE IN THE ED WITH INTERPRETATION/REVIEW OF DIAGNOSTIC STUDIES: This is a 35-year-old woman with a past medical history of cirrhosis secondary to alcohol use and pancreatitis who comes to the emergency department with a chief complaint of vomiting blood who has diffuse abdominal pain which is similar to her prior examinations by myself and other physicians who has stable vital signs at this time. We will obtain labs including CBC, CMP, lipase, lactic acid. We will provide the patient with 1 L of normal saline, a OxyContin 10 mg which is her home dose and obtain a CT abdomen pelvis with IV contrast. Differential does include esophageal variceal bleeding, Jessy-Adam tear, GI bleed. Laboratory: CBC reveals a normocytic anemia with a hemoglobin of 11.1 and hematocrit 33.5 which is actually up from prior on 02/21/2021. Coags are within normal limits. Lactic acid is 2.7. CMP is unremarkable except for hypoalbuminemia at 3.3. Lipase is 364 which is down from 484. The radiological images were viewed by myself along with reading the report from the radiologist. CT abdomen pelvis does not reveal any acute intra-abdominal process. No kidney stones or obstructive nephropathy. There is a noncirrhotic liver. There is diverticulosis without any evidence of diverticulitis or abscess. While in the emergency department the patient did not have any further episodes of vomiting. The patient's vitals continue to remain normal. I did discuss with her that after fluid resuscitation we would repeat her lactic acid. I did discuss with her that she likely needs an EGD however I do not believe that this is emergent however I will contact her GI specialist to further discuss this. She was amenable to this plan. I contacted Dr. Bartholomew at [facility] in [place] and spoke with him. He did recommend observation admission for idiopathic pancreatitis and that he would arrange for an out patient EGD. Laboratory: Lactic acid is 2.0. On reevaluation I did discuss with Dr. Bartholomew had discussed with me. I did offer observation admission versus discharge. I do believe that the patient is having baseline pain as she is on chronic opiates. She was asking for a refill of her OxyContin for which I did discuss with her that she need to follow-up with her primary care physician for further opiate prescriptions. I did offer admission and she stated that she would rather go home. I did discuss with her that she had any further episodes of bloody vomit or worsening pain she needed to return to the emergency department. She was amenable to discharge at this time and had no further questions DISPOSITION: The patient was discharged home in stable condition. The patient will follow up with Dr. Bartholomew at her outpatient scheduled ED for which they will contact her CONDITION: Fair PROCEDURES: None FINAL IMPRESSION(S)/DIAGNOSES: 1. Acute bloody emesis 2. Acute on chronic abdominal pain Antony Chacon M.D. Epigastric Pain Score (Numeric/FACES): 9 - Related Data Allergies Allergy/AdvReac Type Severity Reaction Status Date / Time No Known Allergies Allergy Verified 03/02/21 13:46 Home Meds: Home Meds Furosemide [Lasix] 20 mg PO DAILY tablet 11/17/20 [Rx] Lactulose 10 gm PO BID PRN 10 Days #1 bottle 11/17/20 [Rx] LORazepam [Ativan] 0.5 mg PO BID PRN 12/10/20 [History] Spironolactone [Aldactone] 50 mg PO DAILY 12/10/20 [History] Omeprazole Magnesium [Prilosec Otc] 20 mg PO BID PRN 01/05/21 [History] Acetaminophen/HYDROcodone [Beatrice 325-10 MG] 1 tab PO Q6H PRN #10 tablet 02/02/21 [Rx] Ondansetron [Zofran ODT] 4 mg PO Q6H PRN #12 tab.dis 02/09/21 [Rx] Ondansetron [Zofran ODT] 4 mg PO Q6H PRN #12 tab.dis 02/22/21 [Rx] oxyCODONE ER [OxyCONTIN] 10 mg PO Q12H PRN #6 tab.er 02/22/21 [Rx] Past Medical History HEENT History: Reports: None Other HEENT History: Yellow sclera Cardiovascular History: Reports: None Respiratory History: Reports: Other (See Below) Other Respiratory History: Pluerisy Gastrointestinal History: Reports: Cirrhosis, Other (See Below) Other Gastrointestinal History: heartburn Genitourinary History: Reports: Other (See Below) Other Genitourinary History: yeast infection during [place] History: Reports: Musculoskeletal History: Reports: Back Pain, Chronic Other Musculoskeletal History: hx herniated disc in lower back Neurological History: Reports: None Psychiatric History: Reports: Anxiety Endocrine/Metabolic History: Reports: None 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 Hematologic History: Reports: None Immunologic History: Reports: None Oncologic (Cancer) History: Reports: Cervix Dermatologic History: Reports: None - Infectious Disease History Infectious Disease History: Reports: Chicken Pox, Influenza, Novel Coronavirus - Past Surgical History Head Surgeries/Procedures: Reports: None HEENT Surgical History: Reports: Oral Surgery Other HEENT Surgeries/Procedures: teeth removed at 26 years of age wears dentures Respiratory Surgical History: Reports: None GI Surgical History: Reports: Other (See Below) Other GI Surgeries/Procedures: Weekly paracentesis in [place]-Radiology Dept Female Surgical History: Reports: None Musculoskeletal Surgical History: Reports: None Oncologic Surgical History: Reports: Other (See Below) Other Oncologic Surgeries/Procedures: LEEP Social & Family History - Family History Family Medical History: No Pertinent Family History HEENT: Reports: Cataract, Glaucoma, Impaired Vision Cardiac: Reports: CAD, High Cholesterol, Hypertension GI: Reports: Cholelithiasis, Hepatitis OBGYN: Reports: Endometriosis Musculoskeletal: Reports: Arthritis, Back pain, Chronic, Neck Pain, Chronic, Osteoarthritis, RA Neurological: Reports: Alzheimers Disease, Dementia, Parkinson's Psychiatric: Reports: ADD, ADHD, Anxiety, Depression, Emotional Problems, Learning Disability, Mood Swings, Panic Attack Endocrine/Metabolic: Reports: Diabetes, type II, Hyperthyroidism Oncologic: Reports: Leukemia - Tobacco Use Tobacco Use Status *Q: Never Tobacco User Second Hand Smoke Exposure: No - Caffeine Use Caffeine Use: Reports: None - Recreational Drug Use Recreational Drug Use: No ED ROS GENERAL - Review of Systems Review Of Systems: See Below ED EXAM, GENERAL - Physical Exam Exam: See Below Course - Vital Signs Last Recorded V/S: Last Vital Signs Temp 36.0 C L 03/02/21 13:47 Pulse 67 03/02/21 16:55 Resp 17 03/02/21 16:55 BP 106/65 03/02/21 16:55 Pulse Ox 100 03/02/21 16:55 - Orders/Labs/Meds Labs: Laboratory Tests 03/02/21 03/02/21 03/02/21 Range/Units 14:27 14:27 14:27 WBC 5.47 (4.0-11.0) K/uL RBC 3.65 L (4.30-5.90) M/uL Hgb 11.1 L (12.0-16.0) g/dL Hct 33.5 L (36.0-46.0) % MCV 91.8 (80.0-98.0) fL MCH 30.4 (27.0-32.0) pg MCHC 33.1 (31.0-37.0) g/dL RDW Std Deviation 54.1 (28.0-62.0) fl RDW Coeff of Blue 16 H (11.0-15.0) % Plt Count 241 (150-400) K/uL MPV 11.10 (7.40-12.00) fL Neut % (Auto) 61.7 (48.0-80.0) % Lymph % (Auto) 26.5 (16.0-40.0) % [place] % (Auto) 6.9 (0.0-15.0) % Eos % (Auto) 4.4 (0.0-7.0) % Baso % (Auto) 0.5 (0.0-1.5) % Neut # (Auto) 3.4 (1.4-5.7) K/uL Lymph # (Auto) 1.5 (0.6-2.4) K/uL [place] # (Auto) 0.4 (0.0-0.8) K/uL Eos # (Auto) 0.2 (0.0-0.7) K/uL Baso # (Auto) 0.0 (0.0-0.1) K/uL Nucleated RBC % 0.0 /100WBC Nucleated RBCs # 0 K/uL INR 0.96 APTT 25.0 (18.6-31.3) SEC Lactate 2.7 H* (0.20-2.00) mmol/L Sodium (136-145) mmol/L Potassium (3.5-5.1) mmol/L Chloride (98-107) mmol/L Carbon Dioxide (21.0-32.0) mmol/L BUN (7.0-18.0) mg/dL Creatinine (0.6-1.0) mg/dL Est Cr Clr Drug Dosing mL/min Estimated GFR (MDRD) ml/min Glucose (74-106) mg/dL Calcium (8.5-10.1) mg/dL Total Bilirubin (0.2-1.0) mg/dL AST (15-37) IU/L ALT (14-63) IU/L Alkaline Phosphatase (46-116) U/L Ammonia (19-54) ug/dL Total Protein (6.4-8.2) g/dL Albumin (3.4-5.0) g/dL Globulin (2.6-4.0) g/dL Albumin/Globulin Ratio (0.9-1.6) Lipase (73-393) U/L 03/02/21 03/02/21 03/02/21 Range/Units 14:27 14:45 17:21 WBC (4.0-11.0) K/uL RBC (4.30-5.90) M/uL Hgb (12.0-16.0) g/dL Hct (36.0-46.0) % MCV (80.0-98.0) fL MCH (27.0-32.0) pg MCHC (31.0-37.0) g/dL RDW Std Deviation (28.0-62.0) fl RDW Coeff of Blue (11.0-15.0) % Plt Count (150-400) K/uL MPV (7.40-12.00) fL Neut % (Auto) (48.0-80.0) % Lymph % (Auto) (16.0-40.0) % [place] % (Auto) (0.0-15.0) % Eos % (Auto) (0.0-7.0) % Baso % (Auto) (0.0-1.5) % Neut # (Auto) (1.4-5.7) K/uL Lymph # (Auto) (0.6-2.4) K/uL [place] # (Auto) (0.0-0.8) K/uL Eos # (Auto) (0.0-0.7) K/uL Baso # (Auto) (0.0-0.1) K/uL Nucleated RBC % /100WBC Nucleated RBCs # K/uL INR APTT (18.6-31.3) SEC Lactate 2.0 (0.20-2.00) mmol/L Sodium 140 (136-145) mmol/L Potassium 3.7 (3.5-5.1) mmol/L Chloride 104 (98-107) mmol/L Carbon Dioxide 23.3 (21.0-32.0) mmol/L BUN 6 L (7.0-18.0) mg/dL Creatinine 0.8 (0.6-1.0) mg/dL Est Cr Clr Drug Dosing 71.01 mL/min Estimated GFR (MDRD) > 60.0 ml/min Glucose 112 H (74-106) mg/dL Calcium 8.5 (8.5-10.1) mg/dL Total Bilirubin 0.2 (0.2-1.0) mg/dL AST 16 (15-37) IU/L ALT 18 (14-63) IU/L Alkaline Phosphatase 80 (46-116) U/L Ammonia 32 (19-54) ug/dL Total Protein 7.1 (6.4-8.2) g/dL Albumin 3.3 L (3.4-5.0) g/dL Globulin 3.8 (2.6-4.0) g/dL Albumin/Globulin Ratio 0.9 (0.9-1.6) Lipase 364 (73-393) U/L Meds: Medications Discontinued Medications Generic Name Dose Route Start Last Admin Trade Name Tanvir PRN Reason Stop Dose Admin Diphenhydramine HCl 25 mg 03/02/21 15:06 03/02/21 15:19 Diphenhydramine 25 Mg Cap PO 03/02/21 15:07 25 mg ONETIME ONE Administration Sodium Chloride 1,000 mls @ 999 mls/hr 03/02/21 16:15 03/02/21 16:24 Normal Saline IV 999 mls/hr ASDIRECTED DENISE Administration Iopamidol 100 ml 03/02/21 17:13 03/02/21 17:14 Iopamidol 755 Mg/Ml 500 Ml Multipack Bottle IVPUSH 03/02/21 17:14 100 ml ONETIME STA Administration Morphine Sulfate 4 mg 03/02/21 14:17 03/02/21 14:32 Morphine 4 Mg/Ml Syringe IVPUSH 03/02/21 14:18 4 mg ONETIME ONE Administration Ondansetron HCl 4 mg 03/02/21 14:38 03/02/21 14:46 Ondansetron 4 Mg/2 Ml Sdv IVPUSH 03/02/21 14:39 4 mg ONETIME ONE Administration Oxycodone HCl 10 mg 03/02/21 16:15 03/02/21 16:24 Oxycodone Er 10 Mg Tab.Er PO 03/02/21 16:16 10 mg ONETIME ONE Administration Departure - Departure Time of Disposition: 17:33 Disposition: Home, Self-Care 01 Condition: Fair Clinical Impression: Pancreatitis, chronic, Vomiting of blood - Discharge Information *PRESCRIPTION DRUG MONITORING PROGRAM REVIEWED*: No *COPY OF PRESCRIPTION DRUG MONITORING REPORT IN PATIENT TATE: No Instructions: Hematemesis, Chronic Pancreatitis Referrals: Carlin Mansfield MD [Primary Care Provider] - Elsie Bartholomew MD [Ordering Only Provider] - Forms: ED Department Discharge Additional Instructions: Your evaluated today on an emergent basis. At this time and discussion with you you elected to do treatment at home versus observation. At this time we did provide you with OxyContin and you need to contact your primary care doctor tomorrow if you would like further opiate prescriptions. In addition I did contact Dr. Bartholomew with your GI specialist at [facility] in [place] and he will contact you for an outpatient scope to evaluate for any evidence of stomach ulcers, esophageal varices. Please return to the emergency department if you have any new or worsening symptoms such as worsening bloody vomit, abdominal pain. [facility] - Primary Care [address] [place] [id number] [address] [id number] The patient is informed of any results of their evaluation and diagnostic workup and all questions are answered. They are given discharge instructions and return precautions. The patient is stable for discharge. The patient states they understand and agree with the plan and that they will return if their symptoms get worse or if they have any new concerns. The following information is given to patients seen in the emergency department who are being discharged to home. This information is to outline your options for follow-up care. We provide all patients seen in our emergency department with a follow-up referral. The need for follow-up, as well as the timing and circumstances, are variable depending upon the specifics of your emergency department visit. If you don't have a primary care physician on staff, we will provide you with a referral. We always advise you to contact your personal physician following an emergency department visit to inform them of the circumstance of the visit and for follow-up with them and/or the need for any referrals to a consulting specialist. The emergency department will also refer you to a specialist when appropriate. This referral assures that you have the opportunity for follow-up care with a specialist. All of these measure are taken in an effort to provide you with optimal care, which includes your follow-up. Under all circumstances we always encourage you to contact your private physician who remains a resource for coordinating your care. When calling for follow-up care, please make the office aware that this follow-up is from your recent emergency room visit. If for any reason you are refused follow-up, please contact the [facility] Emergency Department at and asked to speak to the emergency department charge nurse. Sepsis Event Note (ED) - Evaluation Sepsis Screening Result: No Definite Risk
== END 2021-03-02 17:48 | disposition home or self-care (01) ==
LOC: MW.ED 13:32
DX: K85.90 Acute pancreatitis without necrosis or infection, unspecified (principal); K92.0 Hematemesis
CPT/HCPCS: 36415; 74177; 80053; 82140; 83605; 83690; 85025; 85610; 85730; 96374; 96375; 99284; A9270; J2270; J2405; J7030; Q9967

== ENCOUNTER 2021-03-04 09:19 | Emergency (ER) | payer BC ==
--- NOTE | 2021-03-04 09:36 | EDM.PDOC ---
ED HPI GENERAL MEDICAL PROBLEM - General Chief Complaint: General Stated Complaint: pain due to cirrhosis and pancreatitis Time Seen by Provider: 03/04/21 09:26 - History of Present Illness INITIAL COMMENTS - FREE TEXT/NARRATIVE: HISTORY AND PHYSICAL: History of present illness: This is a 35-year-old female with a past medical history significant for cirrhosis of the liver believed to be secondary to significant alcohol use, pancreatitis, who presents ER today for further evaluation of diffuse abdominal pain greatest in her right upper quadrant. Patient reports that her last alcoholic drink was October 05 approximately 6 months ago. Patient reports that she was seen here approximately 2 days ago secondary to abdominal pain and hematemesis. Patient presents to the ER today after speaking to her stomach specialist over the phone and was recommended to come the ER for assistance with pain control. Patient reports that she has been having difficulty managing her abdominal pain and that her doctors recently weaned her off all her pain medicine and plan was to initiate medical marijuana to assist with her pain management. Patient reports that she has not been able to afford the medical card as well as the medical visits for her medical marijuana cards. She reports that she is currently not taking any pain medicines at home other than the benzodiazepines that she takes for her anxiety. Patient reports that this morning she started having recurrence of her abdominal discomfort/pancreatitis pain, she called her physician's office and they recommended that she come to the ER for possible admission and pain management. Patient reports that she is no longer having any further episodes of hematemesis. Patient denies any recent fevers, shakes, chills, vomiting. Patient reports that she does feel slightly nauseous but has not had any further episodes of vomiting over the last 36 hours. Patient reports that she does have loose stools but she believes that this is related to her chronic lactulose use. Patient denies any other URI symptoms. Patient denies any cough, cold, congestion, rhinorrhea. Patient denies any sore throat. Patient reports that she has been able to tolerate Jell-O at home without any difficulty. Patient reports that she has not been taking broth secondary to the sodium load and her liver disease. Patient's labs were reviewed and her CT scan that was obtained 2 days ago reveals a normal- appearing liver without evidence of cirrhosis. It also revealed a normal- appearing pancreas without evidence of calcifications/inflammation/chronic pancreatitis. Review of systems: As per history of present illness and below otherwise all systems reviewed and negative. Past medical history: As per history of present illness and as reviewed below otherwise noncontributo ry. Surgical history: As per history of present illness and as reviewed below otherwise noncontributory. Social history: No reported history of drug abuse. Family history: As per history of present illness and as reviewed below otherwise noncontributory. Physical exam: This patient was seen and evaluated during the 2019 SARS-CoV-2 novel coronavirus pandemic period. Community viral transmission is ongoing at time of this encounter and the emergency department is operating under pandemic response procedures. Constitutional: Patient is oriented to person, place, and time. Appears well- developed and well-nourished. No distress. HEENT: Moist mucous membranes Head: Normocephalic and atraumatic Eyes: Right eye exhibits no discharge. Left eye exhibits no discharge. No scleral icterus Neck: Normal range of motion. No tracheal deviation present. Cardiovascular: Normal rate and regular rhythm. Pulmonary: Effort normal, no respiratory distress. Abd: Soft, nondistended, no rebound/guarding, no psoas or obturator signs, no tenderness at Mcberney's point, no Zepeda's sign. Pt does not present with an exam that would be consistent with an acute surgical abdomen at this time, tenderness to palpation to the right upper quadrant as well as her left side of her abdomen. Patient does not appear to be in any acute distress at this time. Musculoskeletal: Normal range of motion Neurologic: Alert and oriented to person, place and time. Skin: [place], warm and dry. Psychiatric: Normal mood and affect. Behavior is normal. Judgment and thought content normal. Nursing note and vital signs have been reviewed Diagnostics: CBC, CMP, lipase, UA, U Therapeutics: NSS x1 L, Zofran, Protonix, Toradol, Assessment and plan: This is a 35-year-old female with a history significant for cirrhosis and chronic pancreatitis who had a CT scan obtained approximately 2 days ago that did not reveal any evidence of an abnormal liver/pancreatitis. Per the CT report, patient has a noncirrhotic liver, no splenic pathology, no pancreatic pathology, no pancreatic inflammatory changes, no evidence of pancreatic duct dilatation. Patient does have cholelithiasis identified in her gallbladder. Etiology of this patient's pain at this time appears to be unclear. It does not appear that she has any evidence of chronic pancreatitis on the CT scan with no calcific changes. Although patient reports that she is currently on lactulose and has been diagnosed with cirrhosis, the CT scan looks remarkably normal for patient with that diagnosis. In the ED, patient will be given Protonix, Toradol, NSS and will repeat her labs to see if there is any changes from 2 days ago. 10:38 AM: Patient's labs are all within normal limits. As discussed with the patient her normal CT scan findings regarding her liver and her pancreas being normal on her CT scan from 2 days ago. Patient is resting comfortably but is requesting assistance with pain meds prior to discharge. Patient is requesting no prescription for pain medicines as she does have an appointment on Tuesday to see her pain specialist for her marijuana card. At this time, patient does not present with signs or symptoms that would be concerning with an acute surgical abdomen. Patient has an appointment scheduled on Tuesday for an endoscopy. Reassessment at the time of disposition demonstrates that the patient is in no acute distress. The patient has remained stable throughout the entire ED visit and is without objective evidence for acute process requiring urgent intervention or hospitalization. The patient is stable for discharge, counseling is provided as documented above, discussed symptomatic treatment and specific conditions for return. I have spoken with the patient/caregiver and discussed todays findings, in addition to providing specific details for the plan of care. Questions are answered and there is agreement with the plan. Definitive disposition and diagnosis as appropriate pending reevaluation and review of above. Abdominal Pain Pain Score (Numeric/FACES): 10 - Related Data Allergies Allergy/AdvReac Type Severity Reaction Status Date / Time No Known Allergies Allergy Verified 03/02/21 13:46 Home Meds: Home Meds Furosemide [Lasix] 20 mg PO DAILY tablet 11/17/20 [Rx] Lactulose 10 gm PO BID PRN 10 Days #1 bottle 11/17/20 [Rx] LORazepam [Ativan] 0.5 mg PO BID PRN 12/10/20 [History] Spironolactone [Aldactone] 50 mg PO DAILY 12/10/20 [History] Omeprazole Magnesium [Prilosec Otc] 20 mg PO BID PRN 01/05/21 [History] Acetaminophen/HYDROcodone [[place] 325-10 MG] 1 tab PO Q6H PRN #10 tablet 02/02/21 [Rx] Ondansetron [Zofran ODT] 4 mg PO Q6H PRN #12 tab.dis 02/09/21 [Rx] Ondansetron [Zofran ODT] 4 mg PO Q6H PRN #12 tab.dis 02/22/21 [Rx] oxyCODONE ER [OxyCONTIN] 10 mg PO Q12H PRN #6 tab.er 02/22/21 [Rx] Past Medical History HEENT History: Reports: None Other HEENT History: Yellow sclera Cardiovascular History: Reports: None Respiratory History: Reports: Other (See Below) Other Respiratory History: Pluerisy Gastrointestinal History: Reports: Cirrhosis, Other (See Below) Other Gastrointestinal History: heartburn Genitourinary History: Reports: Other (See Below) Other Genitourinary History: yeast infection during [employer] History: Reports: Musculoskeletal History: Reports: Back Pain, Chronic Other Musculoskeletal History: hx herniated disc in lower back Neurological History: Reports: None Psychiatric History: Reports: Anxiety Endocrine/Metabolic History: Reports: None Insulin Pump Model and Home Office Representative: None Hematologic History: Reports: None Immunologic History: Reports: None Oncologic (Cancer) History: Reports: Cervix Dermatologic History: Reports: None - Infectious Disease History Infectious Disease History: Reports: Chicken Pox, Influenza, Novel Coronavirus - Past Surgical History Head Surgeries/Procedures: Reports: None HEENT Surgical History: Reports: Oral Surgery Other HEENT Surgeries/Procedures: teeth removed at 26 years of age wears dentures Respiratory Surgical History: Reports: None GI Surgical History: Reports: Other (See Below) Other GI Surgeries/Procedures: Weekly paracentesis in [facility] Female Surgical History: Reports: None Musculoskeletal Surgical History: Reports: None Oncologic Surgical History: Reports: Other (See Below) Other Oncologic Surgeries/Procedures: LEEP Social & Family History - Family History Family Medical History: No Pertinent Family History HEENT: Reports: Cataract, Glaucoma, Impaired Vision Cardiac: Reports: CAD, High Cholesterol, Hypertension GI: Reports: Cholelithiasis, Hepatitis OBGYN: Reports: Endometriosis Musculoskeletal: Reports: Arthritis, Back pain, Chronic, Neck Pain, Chronic, Osteoarthritis, RA Neurological: Reports: Alzheimers Disease, Dementia, Parkinson's Psychiatric: Reports: ADD, ADHD, Anxiety, Depression, Emotional Problems, Learning Disability, Mood Swings, Panic Attack Endocrine/Metabolic: Reports: Diabetes, type II, Hyperthyroidism Oncologic: Reports: Leukemia - Caffeine Use Caffeine Use: Reports: None ED ROS GENERAL - Review of Systems Review Of Systems: See Below ED EXAM, GENERAL - Physical Exam Exam: See Below Course - Vital Signs Last Recorded V/S: Last Vital Signs Temp 97.8 F 03/04/21 09:32 Pulse 106 H 03/04/21 09:32 Resp 17 03/04/21 09:32 BP 111/52 L 03/04/21 09:32 Pulse Ox 99 03/04/21 09:32 - Orders/Labs/Meds Orders: Active Orders 24 hr Category Date Time Status Sodium Chloride 0.9% [Normal Saline] 1,000 ml Med 03/04/21 09:42 Active IV .Bolus Saline Lock Insert [OM.PC] Stat Oth 03/04/21 09:42 Ordered Medication Orders Sodium Chloride (Normal Saline) 1,000 mls @ 999 mls/hr IV .Bolus ONE Stop: 03/04/21 10:42 Last Admin: 03/04/21 10:04 Dose: 999 mls/hr Documented by: [id number] Labs: Laboratory Tests 03/04/21 03/04/21 03/04/21 Range/Units 09:47 09:47 09:53 WBC (4.0-11.0) K/uL RBC (4.30-5.90) M/uL Hgb (12.0-16.0) g/dL Hct (36.0-46.0) % MCV (80.0-98.0) fL MCH (27.0-32.0) pg MCHC (31.0-37.0) g/dL RDW Std Deviation (28.0-62.0) fl RDW Coeff of Blue (11.0-15.0) % Plt Count (150-400) K/uL MPV (7.40-12.00) fL Neut % (Auto) (48.0-80.0) % Lymph % (Auto) (16.0-40.0) % [place] % (Auto) (0.0-15.0) % Eos % (Auto) (0.0-7.0) % Baso % (Auto) (0.0-1.5) % Neut # (Auto) (1.4-5.7) K/uL Lymph # (Auto) (0.6-2.4) K/uL [place] # (Auto) (0.0-0.8) K/uL Eos # (Auto) (0.0-0.7) K/uL Baso # (Auto) (0.0-0.1) K/uL Nucleated RBC % /100WBC Nucleated RBCs # K/uL Sodium 141 (136-145) mmol/L Potassium 3.7 (3.5-5.1) mmol/L Chloride 105 (98-107) mmol/L Carbon Dioxide 24.7 (21.0-32.0) mmol/L BUN 5 L (7.0-18.0) mg/dL Creatinine 0.8 (0.6-1.0) mg/dL Est Cr Clr Drug Dosing 76.89 mL/min Estimated GFR (MDRD) > 60.0 ml/min Glucose 71 L (74-106) mg/dL Calcium 8.3 L (8.5-10.1) mg/dL Total Bilirubin 0.3 (0.2-1.0) mg/dL AST 22 (15-37) IU/L ALT 17 (14-63) IU/L Alkaline Phosphatase 73 (46-116) U/L Total Protein 6.8 (6.4-8.2) g/dL Albumin 3.0 L (3.4-5.0) g/dL Globulin 3.8 (2.6-4.0) g/dL Albumin/Globulin Ratio 0.8 L (0.9-1.6) Lipase 179 (73-393) U/L Urine Color YELLOW Urine Appearance CLEAR Urine pH 5.5 (5.0-8.0) Ur Specific [place] 1.020 (1.001-1.035) Urine Protein NEGATIVE (NEGATIVE) mg/dL Urine Glucose (UA) NEGATIVE (NEGATIVE) mg/dL Urine Ketones NEGATIVE (NEGATIVE) mg/dL Urine Occult Blood NEGATIVE (NEGATIVE) Urine Nitrite NEGATIVE (NEGATIVE) Urine Bilirubin NEGATIVE (NEGATIVE) Urine Urobilinogen 0.2 (<2.0) EU/dL Ur Leukocyte Esterase NEGATIVE (NEGATIVE) Urine HCG, Qual NEGATIVE (NEGATIVE) 03/04/21 Range/Units 09:53 WBC 5.60 (4.0-11.0) K/uL RBC 3.48 L (4.30-5.90) M/uL Hgb 10.6 L (12.0-16.0) g/dL Hct 31.9 L (36.0-46.0) % MCV 91.7 (80.0-98.0) fL MCH 30.5 (27.0-32.0) pg MCHC 33.2 (31.0-37.0) g/dL RDW Std Deviation 54.7 (28.0-62.0) fl RDW Coeff of Blue 16 H (11.0-15.0) % Plt Count 230 (150-400) K/uL MPV 10.80 (7.40-12.00) fL Neut % (Auto) 64.2 (48.0-80.0) % Lymph % (Auto) 22.3 (16.0-40.0) % [place] % (Auto) 9.8 (0.0-15.0) % Eos % (Auto) 3.0 (0.0-7.0) % Baso % (Auto) 0.7 (0.0-1.5) % Neut # (Auto) 3.6 (1.4-5.7) K/uL Lymph # (Auto) 1.3 (0.6-2.4) K/uL [place] # (Auto) 0.6 (0.0-0.8) K/uL Eos # (Auto) 0.2 (0.0-0.7) K/uL Baso # (Auto) 0.0 (0.0-0.1) K/uL Nucleated RBC % 0.0 /100WBC Nucleated RBCs # 0 K/uL Sodium (136-145) mmol/L Potassium (3.5-5.1) mmol/L Chloride (98-107) mmol/L Carbon Dioxide (21.0-32.0) mmol/L BUN (7.0-18.0) mg/dL Creatinine (0.6-1.0) mg/dL Est Cr Clr Drug Dosing mL/min Estimated GFR (MDRD) ml/min Glucose (74-106) mg/dL Calcium (8.5-10.1) mg/dL Total Bilirubin (0.2-1.0) mg/dL AST (15-37) IU/L ALT (14-63) IU/L Alkaline Phosphatase (46-116) U/L Total Protein (6.4-8.2) g/dL Albumin (3.4-5.0) g/dL Globulin (2.6-4.0) g/dL Albumin/Globulin Ratio (0.9-1.6) Lipase (73-393) U/L Urine Color Urine Appearance Urine pH (5.0-8.0) Ur Specific [place] (1.001-1.035) Urine Protein (NEGATIVE) mg/dL Urine Glucose (UA) (NEGATIVE) mg/dL Urine Ketones (NEGATIVE) mg/dL Urine Occult Blood (NEGATIVE) Urine Nitrite (NEGATIVE) Urine Bilirubin (NEGATIVE) Urine Urobilinogen (<2.0) EU/dL Ur Leukocyte Esterase (NEGATIVE) Urine HCG, Qual (NEGATIVE) Meds: Medications Generic Name Dose Route Start Last Admin Trade Name Freq PRN Reason Stop Dose Admin Sodium Chloride 1,000 mls @ 999 mls/hr 03/04/21 09:42 03/04/21 10:04 Normal Saline IV 03/04/21 10:42 999 mls/hr .Bolus ONE Administration Discontinued Medications Generic Name Dose Route Start Last Admin Trade Name Freq PRN Reason Stop Dose Admin Pantoprazole Sodium 40 mg/ 10 mls @ 300 mls/hr 03/04/21 09:42 03/04/21 10:04 Sodium Chloride IV 03/04/21 09:43 300 mls/hr NOW ONE Administration Ketorolac Tromethamine 15 mg 03/04/21 09:42 03/04/21 10:04 Ketorolac 15 Mg/Ml Sdv IVPUSH 03/04/21 09:43 15 mg ONETIME ONE Administration Ondansetron HCl 4 mg 03/04/21 09:42 03/04/21 10:04 Ondansetron 4 Mg/2 Ml Sdv IVPUSH 03/04/21 09:43 4 mg ONETIME ONE Administration Departure - Departure Time of Disposition: 10:40 Disposition: Home, Self-Care 01 Condition: Good Clinical Impression: Abdominal pain Qualifiers: Abdominal location: left upper quadrant Qualified Code(s): R10.12 - Left upper quadrant pain - Discharge Information Instructions: Abdominal Pain, Adult, [id number] Referrals: Carlin Mansfield MD [Primary Care Provider] - Forms: ED Department Discharge Additional Instructions: You were seen and evaluated in the ER today secondary to abdominal pain. Your tests were reviewed from your prior visit which revealed a CT scan that showed a noncirrhotic normal-appearing liver. Your pancreas also does not have any suggestion of acute inflammation or calcifications within it that would be suggestive of chronic pancreatitis. The etiology of your pain at this time is extremely unclear. We are recommending that you keep your appointment on Tuesday for the endoscopy to rule out gastritis or stomach ulcers as the cause of your discomfort. Please keep your appointment on Tuesday to obtain your medical marijuana card. Please return to the ER if you have any worsening or new concerning symptoms. Please call your family doctor today so they can assist you with pain management until Tuesday when you see your medical marijuana physician. The following information is given to patients seen in the emergency department who are being discharged to home. This information is to outline your options for follow-up care. We provide all patients seen in our emergency department with a follow-up referral. The need for follow-up, as well as the timing and circumstances, are variable depending upon the specifics of your emergency department visit. If you don't have a primary care physician on staff, we will provide you with a referral. We always advise you to contact your personal physician following an emergency department visit to inform them of the circumstance of the visit and for follow-up with them and/or the need for any referrals to a consulting specialist. The emergency department will also refer you to a specialist when appropriate. This referral assures that you have the opportunity for follow-up care with a specialist. All of these measure are taken in an effort to provide you with optimal care, which includes your follow-up. Under all circumstances we always encourage you to contact your private physician who remains a resource for coordinating your care. When calling for follow-up care, please make the office aware that this follow-up is from your recent emergency room visit. If for any reason you are refused follow-up, please contact the [facility] Emergency Department at and asked to speak to the emergency department charge nurse. [facility] - Primary [facility] [address] [place] [address] [id number] Sepsis Event Note (ED) - Focused Exam Vital Signs: Vital Signs Temp Pulse Resp BP Pulse Ox 03/04/21 09:32 97.8 F 106 H 17 111/52 L 99 - My Orders Last 24 Hours: My Active Orders 03/04/21 09:42 Sodium Chloride 0.9% [Normal Saline] 1,000 ml IV .Bolus Saline Lock Insert [OM.PC] Stat - Assessment/Plan Last 24 Hours: My Active Orders 03/04/21 09:42 Sodium Chloride 0.9% [Normal Saline] 1,000 ml IV .Bolus Saline Lock Insert [OM.PC] Stat
[2021-03-04] MEDS ORDERED: Ketorolac 15 MG/ML SDV IVPUSH ONE (09:42)
[2021-03-04] MEDS ORDERED: Pantoprazole 40 MG in Sodium Chloride 0.9% 10 ML IV ONE (09:42)
[2021-03-04] MEDS ORDERED: Sodium Chloride 0.9% 1,000 ML IV ONE (09:42)
[2021-03-04] MEDS ORDERED: Ondansetron 4 MG/2 ML SDV IVPUSH ONE (09:42)
[2021-03-04 10:28] LABS: BLOOD UREA NITROGEN,BUN 5 mg/dL (7.0-18.0); CARBON DIOXIDE,CO2 24.7 mmol/L (21.0-32.0); CHLORIDE,CL 105 mmol/L (98-107); GLUCOSE RANDOM 71 mg/dL (74-106); LIPASE 179 U/L (73-393); POTASSIUM,K 3.7 mmol/L (3.5-5.1); SODIUM,NA 141 mmol/L (136-145)
[2021-03-04] MEDS ORDERED: Morphine 2 MG/ML SYRINGE IVPUSH ONE (10:42)
== END 2021-03-04 11:06 | disposition home or self-care (01) ==
LOC: MW.ED 09:19
DX: R10.12 Left upper quadrant pain (principal)
CPT/HCPCS: 36415; 80053; 81003; 81025; 83690; 85025; 96374; 96375; 99284; C9113; J1885; J2270; J2405; J7030; 99283

== ENCOUNTER 2021-03-13 15:57 | Emergency (ER) | payer BC ==
[2021-03-13 18:09] LABS: BLOOD UREA NITROGEN,BUN 9 mg/dL (7.0-18.0); CARBON DIOXIDE,CO2 25.4 mmol/L (21.0-32.0); CHLORIDE,CL 105 mmol/L (98-107); GLUCOSE RANDOM 116 mg/dL (74-106); LIPASE 151 U/L (73-393); POTASSIUM,K 3.2 mmol/L (3.5-5.1); SODIUM,NA 140 mmol/L (136-145)
[2021-03-13] MEDS ORDERED: Potassium Chloride 20 MEQ Tab.ER PO ONE (18:28)
[2021-03-13] MEDS: Acetaminophen/HYDROcodone 325-5 MG Tab PO ONE ×2 (18:40→18:42)
[2021-03-13] MEDS ORDERED: HYDROmorphone 1 MG/ML Syringe IM ONE (18:50)
--- NOTE | 2021-03-13 19:07 | EDM.PDOC ---
ED HPI GENERAL MEDICAL PROBLEM - General Chief Complaint: Abdominal Pain Stated Complaint: FEELS LIKE LIVER IS SWOLLEN Time Seen by Provider: 03/13/21 15:59 Source of Information: Reports: Patient History Limitations: Reports: No Limitations - History of Present Illness INITIAL COMMENTS - FREE TEXT/NARRATIVE: HISTORY AND PHYSICAL: History of present illness: Patient is a 35-year-old female who presents to the emergency room with complaints of "liver pain" and possible bloody stools. She states she started a new job at [employer], [place] where she is carrying heavy totes frequently. She believes the totes have been hitting her "in my liver" causing her to have swelling and pain. She states she is currently on her menstrual period but that she might have some blood in her stool. She recently stopped taking her narcotic pain medications that were prescribed for her abdominal pain as she did not want to mix these with Ativan she takes for her anxiety. Review of systems: As per history of present illness and below otherwise all systems reviewed and negative. Past medical history: As per history of present illness and as reviewed below otherwise noncontributory. Surgical history: As per history of present illness and as reviewed below otherwise noncontributory. Social history: See social history for further information Family history: As per history of present illness and as reviewed below otherwise noncontributory. Physical exam: General: Well developed and well nourished 35 year old female. Alert and orientated x 3. Nontoxic in appearance and in no acute distress. Vital signs are stable and have been reviewed by me. Nursing notes were reviewed. HEENT: Atraumatic, normocephalic, pupils equal and reactive bilaterally, negative for conjunctival pallor or scleral icterus, mucous membranes moist, TMs normal bilaterally, throat clear, neck supple, nontender, trachea midline. No drooling or trismus noted. No meningeal signs. No hot potato voice noted. Lungs: Clear to auscultation bilaterally. No wheezes, rales, or rhonchi. Chest nontender. Normal work of breathing, no accessory muscles used. Heart: S1S2, regular rate and rhythm without overt murmur, gallops, or rubs. No JVD. No peripheral edema Abdomen: Soft, nondistended, upper abdominal tenderness. Normoactive bowel sounds. Negative for masses or costovertebral tenderness. Pelvis: Stable nontender. Genitourinary/Rectal: This was done with consent and contracts administrator at bedside. Good rectal tone. Trace hemoccult stool; although she is on her menstrual period wearing a pad. Skin: Intact, warm, dry. No lesions or rashes noted. Hematologic: No petechiae or purpra. Mucosa appropriate color and normal nail bed color and refill. Extremities: Atraumatic, moves all extremities per self without difficulty or deficits. Neurovascular unremarkable. Neuro: Awake, alert, oriented. Cranial nerves II through XII unremarkable. Cerebellum unremarkable. Motor and sensory unremarkable throughout. Exam n onfocal. Psychiatric: Mood and affect are appropriate. Normal thought process. Answering questions appropriately. Notes: *This patient was seen and evaluated during the 2019 SARS-CoV-2 novel coronav irus pandemic period. Community viral transmission is ongoing at time of this encounter and the emergency department is operating under pandemic response procedures. Due to patient's multiple CTs she states she would prefer to not have a CT done at this time. She does see Dr. Mansfield, last seen him a week ago. States she had an endoscopy for further evaluation of her liver cirrhosis. She was told everything looks well. My physical exam is unremarkable. She has chronic abdominal pain. Believes the totes have been pushing into her stomach causing it to be "swollen". I do not see any abdominal distention, bruising or immediate need for CT of the abdomen and pelvis with contrast. I will do some basic lab work. She has been eating and drinking without any nausea or vomiting. Do not feel she needs any IV fluids at this time. Patient is refusing anything with Tylenol. She states she will take some Dilaudid IM. I have talked with the patient about today's findings, in addition to providing specific details for plan of care. Reassessment at the time of disposition demonstrates that the patient is in no acute distress. The patient is stable for discharge, counseling was provided and we discussed in great detail signs and symptoms that would prompt them to return to the Emergency Department. Medication, follow up and supportive care measures were reviewed and discussed. Voices understanding and is agreeable to plan of care. Denies any further questions or concerns at this time. Diagnostics: CBC, CMP, UA, lipase Therapeutics: IM Dilaudid Prescription: None Impression: Abdominal pain Plan: 1. You were evaluated today on an emergent basis. Your lab work is unremarkable. 2. You can alternate Tylenol and ibuprofen as needed for pain and fever management. 3. We encourage you to follow up with your Dr Mansfield in the next few days for re-evaluation and further care/management. 4. If your symptoms should worsen, new symptoms develop or any of the signs and symptoms we discussed should arise please return to the emergency room or call 911 (if needed). Definitive disposition and diagnosis as appropriate pending reevaluation and review of above. liver Pain Score (Numeric/FACES): 8 - Related Data Allergies Allergy/AdvReac Type Severity Reaction Status Date / Time No Known Allergies Allergy Verified 03/13/21 17:10 Home Meds: Home Meds Furosemide [Lasix] 20 mg PO DAILY tablet 11/17/20 [Rx] Lactulose 10 gm PO BID PRN 10 Days #1 bottle 11/17/20 [Rx] LORazepam [Ativan] 0.5 mg PO BID PRN 12/10/20 [History] Spironolactone [Aldactone] 50 mg PO DAILY 12/10/20 [History] Omeprazole Magnesium [Prilosec Otc] 20 mg PO BID PRN 01/05/21 [History] Acetaminophen/HYDROcodone [[place]lin 325-10 MG] 1 tab PO Q6H PRN #10 tablet 02/02/21 [Rx] Ondansetron [Zofran ODT] 4 mg PO Q6H PRN #12 tab.dis 02/09/21 [Rx] Ondansetron [Zofran ODT] 4 mg PO Q6H PRN #12 tab.dis 02/22/21 [Rx] oxyCODONE ER [OxyCONTIN] 10 mg PO Q12H PRN #6 tab.er 02/22/21 [Rx] Past Medical History HEENT History: Reports: None Other HEENT History: Yellow sclera Cardiovascular History: Reports: None Respiratory History: Reports: Other (See Below) Other Respiratory History: Pluerisy Gastrointestinal History: Reports: Cirrhosis, Other (See Below) Other Gastrointestinal History: heartburn Genitourinary History: Reports: Other (See Below) Other Genitourinary History: yeast infection during 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[employer] 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: Musculoskeletal History: Reports: Back Pain, Chronic Other Musculoskeletal History: hx herniated disc in lower back Neurological History: Reports: None Psychiatric History: Reports: Anxiety Endocrine/Metabolic History: Reports: None 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 Hematologic History: Reports: None Immunologic History: Reports: None Oncologic (Cancer) History: Reports: Cervix Dermatologic History: Reports: None - Infectious Disease History Infectious Disease History: Reports: Chicken Pox, Influenza, Novel Coronavirus - Past Surgical History Head Surgeries/Procedures: Reports: None HEENT Surgical History: Reports: Oral Surgery Other HEENT Surgeries/Procedures: teeth removed at 26 years of age wears dentures Respiratory Surgical History: Reports: None GI Surgical History: Reports: Other (See Below) Other GI Surgeries/Procedures: Weekly paracentesis in [place]-Radiology Dept Female Surgical History: Reports: None Musculoskeletal Surgical History: Reports: None Oncologic Surgical History: Reports: Other (See Below) Other Oncologic Surgeries/Procedures: LEEP Social & Family History - Family History Family Medical History: No Pertinent Family History HEENT: Reports: Cataract, Glaucoma, Impaired Vision Cardiac: Reports: CAD, High Cholesterol, Hypertension GI: Reports: Cholelithiasis, Hepatitis OBGYN: Reports: Endometriosis Musculoskeletal: Reports: Arthritis, Back pain, Chronic, Neck Pain, Chronic, Osteoarthritis, RA Neurological: Reports: Alzheimers Disease, Dementia, Parkinson's Psychiatric: Reports: ADD, ADHD, Anxiety, Depression, Emotional Problems, Learning Disability, Mood Swings, Panic Attack Endocrine/Metabolic: Reports: Diabetes, type II, Hyperthyroidism Oncologic: Reports: Leukemia - Tobacco Use Tobacco Use Status *Q: Never Tobacco User - Caffeine Use Caffeine Use: Reports: None - Recreational Drug Use Recreational Drug Use: No ED ROS GENERAL - Review of Systems Review Of Systems: Comprehensive ROS is negative, except as noted in HPI. ED EXAM, GI/ABD - Physical Exam Exam: See Below (See dictation) Course - Vital Signs Last Recorded V/S: Last Vital Signs Temp 96.9 F 03/13/21 17:08 Pulse 86 03/13/21 17:08 Resp BP 92/56 L 03/13/21 17:08 Pulse Ox 96 03/13/21 17:08 - Orders/Labs/Meds Orders: Active Orders 24 hr Category Date Time Status Fecal Occult Blood Collection [RC] ASDIRECTED Care 03/13/21 17:11 Active Labs: Laboratory Tests 03/13/21 03/13/21 03/13/21 Range/Units 17:14 17:14 17:14 WBC 4.23 (4.0-11.0) K/uL RBC 3.72 L (4.30-5.90) M/uL Hgb 11.1 L (12.0-16.0) g/dL Hct 33.9 L (36.0-46.0) % MCV 91.1 (80.0-98.0) fL MCH 29.8 (27.0-32.0) pg MCHC 32.7 (31.0-37.0) g/dL RDW Std Deviation 55.0 (28.0-62.0) fl RDW Coeff of Blue 17 H (11.0-15.0) % Plt Count 333 (150-400) K/uL MPV 11.30 (7.40-12.00) fL Neut % (Auto) 57.8 (48.0-80.0) % Lymph % (Auto) 30.0 (16.0-40.0) % [place] % (Auto) 8.5 (0.0-15.0) % Eos % (Auto) 2.8 (0.0-7.0) % Baso % (Auto) 0.9 (0.0-1.5) % Neut # (Auto) 2.4 (1.4-5.7) K/uL Lymph # (Auto) 1.3 (0.6-2.4) K/uL [place] # (Auto) 0.4 (0.0-0.8) K/uL Eos # (Auto) 0.1 (0.0-0.7) K/uL Baso # (Auto) 0.0 (0.0-0.1) K/uL Nucleated RBC % 0.0 /100WBC Nucleated RBCs # 0 K/uL INR 1.09 Sodium 140 (136-145) mmol/L Potassium 3.2 L (3.5-5.1) mmol/L Chloride 105 (98-107) mmol/L Carbon Dioxide 25.4 (21.0-32.0) mmol/L BUN 9 (7.0-18.0) mg/dL Creatinine 0.8 (0.6-1.0) mg/dL Est Cr Clr Drug Dosing 71.70 mL/min Estimated GFR (MDRD) > 60.0 ml/min Glucose 116 H (74-106) mg/dL Calcium 8.2 L (8.5-10.1) mg/dL Total Bilirubin 0.3 (0.2-1.0) mg/dL AST 22 (15-37) IU/L ALT 22 (14-63) IU/L Alkaline Phosphatase 77 (46-116) U/L Total Protein 7.2 (6.4-8.2) g/dL Albumin 3.2 L (3.4-5.0) g/dL Globulin 4.0 (2.6-4.0) g/dL Albumin/Globulin Ratio 0.8 L (0.9-1.6) Lipase 151 (73-393) U/L Urine Color Urine Appearance Urine pH (5.0-8.0) Ur Specific [place] (1.001-1.035) Urine Protein (NEGATIVE) mg/dL Urine Glucose (UA) (NEGATIVE) mg/dL Urine Ketones (NEGATIVE) mg/dL Urine Occult Blood (NEGATIVE) Urine Nitrite (NEGATIVE) Urine Bilirubin (NEGATIVE) Urine Urobilinogen (<2.0) EU/dL Ur Leukocyte Esterase (NEGATIVE) Urine RBC (0-2/HPF) Urine WBC (0-5/HPF) Ur Epithelial Cells (NONE-FEW) Urine Bacteria (NEGATIVE) Urine Mucus (NONE-MOD) 03/13/21 Range/Units 17:52 WBC (4.0-11.0) K/uL RBC (4.30-5.90) M/uL Hgb (12.0-16.0) g/dL Hct (36.0-46.0) % MCV (80.0-98.0) fL MCH (27.0-32.0) pg MCHC (31.0-37.0) g/dL RDW Std Deviation (28.0-62.0) fl RDW Coeff of Blue (11.0-15.0) % Plt Count (150-400) K/uL MPV (7.40-12.00) fL Neut % (Auto) (48.0-80.0) % Lymph % (Auto) (16.0-40.0) % [place] % (Auto) (0.0-15.0) % Eos % (Auto) (0.0-7.0) % Baso % (Auto) (0.0-1.5) % Neut # (Auto) (1.4-5.7) K/uL Lymph # (Auto) (0.6-2.4) K/uL [place] # (Auto) (0.0-0.8) K/uL Eos # (Auto) (0.0-0.7) K/uL Baso # (Auto) (0.0-0.1) K/uL Nucleated RBC % /100WBC Nucleated RBCs # K/uL INR Sodium (136-145) mmol/L Potassium (3.5-5.1) mmol/L Chloride (98-107) mmol/L Carbon Dioxide (21.0-32.0) mmol/L BUN (7.0-18.0) mg/dL Creatinine (0.6-1.0) mg/dL Est Cr Clr Drug Dosing mL/min Estimated GFR (MDRD) ml/min Glucose (74-106) mg/dL Calcium (8.5-10.1) mg/dL Total Bilirubin (0.2-1.0) mg/dL AST (15-37) IU/L ALT (14-63) IU/L Alkaline Phosphatase (46-116) U/L Total Protein (6.4-8.2) g/dL Albumin (3.4-5.0) g/dL Globulin (2.6-4.0) g/dL Albumin/Globulin Ratio (0.9-1.6) Lipase (73-393) U/L Urine Color YELLOW Urine Appearance SLT CLOUDY Urine pH 5.5 (5.0-8.0) Ur Specific [place] >= 1.030 (1.001-1.035) Urine Protein NEGATIVE (NEGATIVE) mg/dL Urine Glucose (UA) NEGATIVE (NEGATIVE) mg/dL Urine Ketones NEGATIVE (NEGATIVE) mg/dL Urine Occult Blood LARGE H (NEGATIVE) Urine Nitrite NEGATIVE (NEGATIVE) Urine Bilirubin NEGATIVE (NEGATIVE) Urine Urobilinogen 0.2 (<2.0) EU/dL Ur Leukocyte Esterase NEGATIVE (NEGATIVE) Urine RBC 1-4 (0-2/HPF) Urine WBC 4-8 (0-5/HPF) Ur Epithelial Cells MANY (NONE-FEW) Urine Bacteria FEW (NEGATIVE) Urine Mucus LIGHT (NONE-MOD) Meds: Medications Discontinued Medications Generic Name Dose Route Start Last Admin Trade Name Freq PRN Reason Stop Dose Admin Hydrocodone Bitart/Acetaminophen 1 tab 05/14/21 18:28 03/13/21 18:42 Acetaminophen/Hydrocodone 325-5 Mg Tab PO 03/13/21 18:29 Not Given ONETIME ONE Hydromorphone HCl 1 mg 03/13/21 18:50 Hydromorphone 1 Mg/Ml Syringe IM 03/13/21 18:51 ONETIME ONE Potassium Chloride 40 meq 03/13/21 18:28 03/13/21 18:40 Potassium Chloride 20 Meq Tab.Er PO 03/13/21 18:29 40 meq ONETIME ONE Administration Departure - Departure Time of Disposition: 19:12 Disposition: Home, Self-Care 01 Clinical Impression: Abdominal pain Qualifiers: Abdominal location: left upper quadrant Qualified Code(s): R10.12 - Left upper quadrant pain - Discharge Information Instructions: Abdominal Pain, Adult, [id number] Referrals: Carlin Mansfield MD [Primary Care Provider] - Forms: ED Department Discharge Additional Instructions: The following information is given to patients seen in the emergency department who are being discharged to home. This information is to outline your options for follow-up care. We provide all patients seen in our emergency department with a follow-up referral. The need for follow-up, as well as the timing and circumstances, are variable depending upon the specifics of your emergency department visit. If you don't have a primary care physician on staff, we will provide you with a referral. We always advise you to contact your personal physician following an emergency department visit to inform them of the circumstance of the visit and for follow-up with them and/or the need for any referrals to a consulting specialist. The emergency department will also refer you to a specialist when appropriate. This referral assures that you have the opportunity for follow-up care with a specialist. All of these measure are taken in an effort to provide you with optimal care, which includes your follow-up. Under all circumstances we always encourage you to contact your private physician who remains a resource for coordinating your care. When calling for follow-up care, please make the office aware that this follow-up is from your recent emergency room visit. If for any reason you are refused follow-up, please contact the [facility] Emergency Department at and asked to speak to the emergency department charge nurse. [facility] [address] [place] [address] [facility] [address] [place] [id number] Thank you for choosing the [facility] emergency department in [place] for your medical needs today. It was a pleasure caring for you. Today you were seen in the emergency department for abdominal pain. 1. You were evaluated today on an emergent basis. Your lab work is unremarkable. 2. You can alternate Tylenol and ibuprofen as needed for pain and fever management. 3. We encourage you to follow up with your Dr Mansfield in the next few days for re-evaluation and further care/management. 4. If your symptoms should worsen, new symptoms develop or any of the signs and symptoms we discussed should arise please return to the emergency room or call 911 (if needed). Sepsis Event Note (ED) - Evaluation Sepsis Screening Result: No Definite Risk - Focused Exam Vital Signs: Vital Signs Temp Pulse BP Pulse Ox 03/13/21 17:08 96.9 F 86 92/56 L 96 - My Orders Last 24 Hours: My Active Orders 03/13/21 17:11 Fecal Occult Blood Collection [RC] ASDIRECTED - Assessment/Plan Last 24 Hours: My Active Orders 03/13/21 17:11 Fecal Occult Blood Collection [RC] ASDIRECTED
[2021-03-13] MEDS ORDERED: HYDROmorphone 1 MG/ML Syringe ONE (19:10)
== END 2021-03-13 19:20 | disposition home or self-care (01) ==
LOC: MW.ED 15:57
DX: R10.12 Left upper quadrant pain (principal); Z79.899 Other long term (current) drug therapy
CPT/HCPCS: 36415; 80053; 81001; 83690; 85025; 85610; 96372; 99284; A9270; J1170; 99283

== ENCOUNTER 2021-03-14 20:44 | Emergency (ER) | payer BC ==
[2021-03-14] MEDS ORDERED: Furosemide 20 MG Tab PO ONE (22:25)
[2021-03-14] MEDS ORDERED: Spironolactone 25 MG Tab PO ONE (22:25)
[2021-03-14] MEDS ORDERED: Ketorolac 15 MG/ML SDV IM ONE (22:26)
--- NOTE | 2021-03-14 22:31 | EDM.PDOC ---
ED HPI GENERAL MEDICAL PROBLEM - General Chief Complaint: Abdominal Pain Stated Complaint: LIVER PAIN, CIRRHOSIS Time Seen by Provider: 03/14/21 22:14 - History of Present Illness INITIAL COMMENTS - FREE TEXT/NARRATIVE: HISTORY AND PHYSICAL: History of present illness: This is a 35-year-old female with history significant for liver disease who is currently on lactulose spironolactone and Lasix who presents ER today complainin g of pain to her right upper quadrant which she feels is secondary to the basins at [employer] hitting her abdominal wall while she is transferring them at work. Patient reports that she was here yesterday for identical symptoms was given a shot of Dilaudid which helped her pain. Patient went back to work today and continue doing the same type of work resulting in blunt trauma to her abdominal wall similar to yesterday. Patient presents ER today requesting more pain medicines. Patient denies any recent fevers, shakes, chills, nausea, vomiting, diarrhea, dysuria, frequency, urgency, chest pain, shortness of breath. Patient reports that the pain that she is experiencing today is similar to the discomfort that she had yesterday. Patient reports that her physician has wanted her off all narcotics and has attempted to switch her over to medical marijuana which she has not been able to get as of yet secondary to the cost. Patient reports that Ultram makes her nauseous and she is declining Ultram. Patient reports that she will not take anything with acetaminophen secondary to her liver. Patient reports that Toradol p.o. at home does not work for her very well. Patient does not want to take ibuprofen secondary to the stress on her kidneys. Review of systems: As per history of present illness and below otherwise all systems reviewed and negative. Past medical history: As per history of present illness and as reviewed below otherwise noncontributory. Surgical history: As per history of present illness and as reviewed below otherwise noncontributory. Social history: No reported history of drug abuse. Family history: As per history of present illness and as reviewed below otherwise noncontributory. Physical exam: This patient was seen and evaluated during the 2019 SARS-CoV-2 novel coronavirus pandemic period. Community viral transmission is ongoing at time of this encounter and the emergency department is operating under pandemic response procedures. Constitutional: Patient is oriented to person, place, and time. Appears well- developed and well-nourished. No distress. HEENT: Moist mucous membranes Head: Normocephalic and atraumatic Eyes: Right eye exhibits no discharge. Left eye exhibits no discharge. No scleral icterus Neck: Normal range of motion. No tracheal deviation present. Cardiovascular: Normal rate and regular rhythm. Pulmonary: Effort normal, no respiratory distress. Abd: Soft, nondistended, no rebound/guarding, no psoas or obturator signs, no tenderness at Mcberney's point, no Zepeda's sign. Pt does not present with an exam that would be consistent with an acute surgical abdomen at this time. Patient with tenderness to palpation to her upper abdominal wall. Musculoskeletal: Normal range of motion Neurologic: Alert and oriented to person, place and time. Skin: [place], warm and dry. Psychiatric: Normal mood and affect. Behavior is normal. Judgment and thought content normal. Nursing note and vital signs have been reviewed Diagnostics: Not indicated Patient is tolerating p.o. liquids well in the ED. No IV fluids are indicated at this time. Patient looks clinically well hydrated. Patient is once again declined a CT scan of her abdomen pelvis. Patient reports that she is had multiple of them in the past and I agree with the patient that at this time the risk benefits probably do not warrant a definitive need for it. I will respect the patient's autonomy and not order CT scan at this time. Patient had refused a CT scan yesterday as well. Therapeutics: [Toradol 15 mg IM Patient is requesting a dose of her spironolactone and Lasix here in the ED as she slept through the pharmacy today and did not get her medicines filled. Patient was given a dose of spironolactone 50 mg p.o. and Lasix 20 mg p.o. here in the ED. Assessment and plan: 35-year-old female with a history significant for liver disease who presents ER today with likely blunt abdominal wall trauma from work. I have discussed with the patient the need to follow-up with her Workmen's Comp. doctors for further evaluation of changing her workload at [facility]. Patient will be given a work note for today. Patient reports that she is off from work tomorrow. Patient will be given a dose of Toradol 15 mg IM here in the ED after long discussion regarding pain management patient is agreeable to this plan. I discussed with her the need to call her primary care physician to assess a new plan for pain management if she is unable to obtain her medical marijuana. Reassessment at the time of disposition demonstrates that the patient is in no acute distress. The patient has remained stable throughout the entire ED visit and is without objective evidence for acute process requiring urgent intervention or hospitalization. The patient is stable for discharge, counseling is provided as documented above, discussed symptomatic treatment and specific conditions for return. I have spoken with the patient/caregiver and discussed todays findings, in addition to providing specific details for the plan of care. Questions are answered and there is agreement with the plan. Definitive disposition and diagnosis as appropriate pending reevaluation and review of above. Right Abdomen Pain Score (Numeric/FACES): 10 - Related Data Allergies Allergy/AdvReac Type Severity Reaction Status Date / Time No Known Allergies Allergy Verified 03/14/21 22:09 Home Meds: Home Meds Furosemide [Lasix] 20 mg PO DAILY tablet 11/17/20 [Rx] Lactulose 10 gm PO BID PRN 10 Days #1 bottle 11/17/20 [Rx] LORazepam [Ativan] 0.5 mg PO BID PRN 12/10/20 [History] Spironolactone [Aldactone] 50 mg PO DAILY 12/10/20 [History] Omeprazole Magnesium [Prilosec Otc] 20 mg PO BID PRN 01/05/21 [History] Acetaminophen/HYDROcodone [[place] 325-10 MG] 1 tab PO Q6H PRN #10 tablet 02/02/21 [Rx] Ondansetron [Zofran ODT] 4 mg PO Q6H PRN #12 tab.dis 02/09/21 [Rx] Ondansetron [Zofran ODT] 4 mg PO Q6H PRN #12 tab.dis 02/22/21 [Rx] oxyCODONE ER [OxyCONTIN] 10 mg PO Q12H PRN #6 tab.er 02/22/21 [Rx] Past Medical History HEENT History: Reports: None Other HEENT History: Yellow sclera Cardiovascular History: Reports: None Respiratory History: Reports: Other (See Below) Other Respiratory History: Pluerisy Gastrointestinal History: Reports: Cirrhosis, Other (See Below) Other Gastrointestinal History: heartburn Genitourinary History: Reports: Other (See Below) Other Genitourinary History: yeast infection during [employer] History: Reports: Musculoskeletal History: Reports: Back Pain, Chronic Other Musculoskeletal History: hx herniated disc in lower back Neurological History: Reports: None Psychiatric History: Reports: Anxiety Endocrine/Metabolic History: Reports: None Insulin Pump Model and Bellows Assembler: None Hematologic History: Reports: None Immunologic History: Reports: None Oncologic (Cancer) History: Reports: Cervix Dermatologic History: Reports: None - Infectious Disease History Infectious Disease History: Reports: Chicken Pox, Influenza, Novel Coronavirus - Past Surgical History Head Surgeries/Procedures: Reports: None HEENT Surgical History: Reports: Oral Surgery Other HEENT Surgeries/Procedures: teeth removed at 26 years of age wears dentures Respiratory Surgical History: Reports: None GI Surgical History: Reports: Other (See Below) Other GI Surgeries/Procedures: Weekly 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 Female Surgical History: Reports: None Musculoskeletal Surgical History: Reports: None Oncologic Surgical History: Reports: Other (See Below) Other Oncologic Surgeries/Procedures: LEEP Social & Family History - Family History Family Medical History: No Pertinent Family History HEENT: Reports: Cataract, Glaucoma, Impaired Vision Cardiac: Reports: CAD, High Cholesterol, Hypertension GI: Reports: Cholelithiasis, Hepatitis OBGYN: Reports: Endometriosis Musculoskeletal: Reports: Arthritis, Back pain, Chronic, Neck Pain, Chronic, Osteoarthritis, RA Neurological: Reports: Alzheimers Disease, Dementia, Parkinson's Psychiatric: Reports: ADD, ADHD, Anxiety, Depression, Emotional Problems, Learning Disability, Mood Swings, Panic Attack Endocrine/Metabolic: Reports: Diabetes, type II, Hyperthyroidism Oncologic: Reports: Leukemia - Tobacco Use Tobacco Use Status *Q: Never Tobacco User - Caffeine Use Caffeine Use: Reports: None - Recreational Drug Use Recreational Drug Use: No ED ROS GENERAL - Review of Systems Review Of Systems: See Below ED EXAM, GENERAL - Physical Exam Exam: See Below Course - Vital Signs Last Recorded V/S: Last Vital Signs Temp 97.2 F 03/14/21 22:09 Pulse 80 03/14/21 22:09 Resp 16 03/14/21 22:09 BP 98/48 L 03/14/21 22:09 Pulse Ox 100 03/14/21 22:09 - Orders/Labs/Meds Orders: Active Orders 24 hr Category Date Time Status Furosemide [Lasix] Med 03/14/21 22:25 Once 20 mg PO ONETIME ONE Ketorolac [Toradol] Med 03/14/21 22:26 Once 15 mg IM ONETIME ONE Spironolactone [Aldactone] Med 03/14/21 22:25 Once 50 mg PO ONETIME ONE Departure - Departure Time of Disposition: 22:30 Disposition: Home, Self-Care 01 Condition: Good Clinical Impression: Abdominal wall pain - Discharge Information Instructions: Musculoskeletal Pain Referrals: Carlin Mansfield MD [Primary Care Provider] - Additional Instructions: Your seen and evaluated in the ER today secondary to pain in your abdomen. This is most likely related to your workload at [facility]. Please make an appointment to see [facility] [employer] doctors or the occupational medicine clinic number that we will provide for you so they can ensure that you will provide you with a different workload so that you are not continuously injuring your abdominal wall. Please get plenty rest. You were given a dose of Toradol here in the ED. Please continue use your pain medicines that have been recommended to you by your primary care physician. If you are unable to obtain medical marijuana you must talk to your family doctor about a different plan for your pain management. [place] [address] The following information is given to patients seen in the emergency department who are being discharged to home. This information is to outline your options for follow-up care. We provide all patients seen in our emergency department with a follow-up referral. The need for follow-up, as well as the timing and circumstances, are variable depending upon the specifics of your emergency department visit. If you don't have a primary care physician on staff, we will provide you with a referral. We always advise you to contact your personal physician following an emergency department visit to inform them of the circumstance of the visit and for follow-up with them and/or the need for any referrals to a consulting specialist. The emergency department will also refer you to a specialist when appropriate. This referral assures that you have the opportunity for follow-up care with a specialist. All of these measure are taken in an effort to provide you with optimal care, which includes your follow-up. Under all circumstances we always encourage you to contact your private physician who remains a resource for coordinating your care. When calling for follow-up care, please make the office aware that this follow-up is from your recent emergency room visit. If for any reason you are refused follow-up, please contact the [facility] Emergency Department at and asked to speak to the emergency department charge nurse. [facility] [address] [place] [id number] [facility] [address] [place] [id number] Sepsis Event Note (ED) - Evaluation Sepsis Screening Result: No Definite Risk - Focused Exam Vital Signs: Vital Signs Temp Pulse Resp BP Pulse Ox 03/14/21 22:09 97.2 F 80 16 98/48 L 100 - My Orders Last 24 Hours: My Active Orders 03/14/21 22:25 Furosemide [Lasix] 20 mg PO ONETIME ONE Spironolactone [Aldactone] 50 mg PO ONETIME ONE 03/14/21 22:26 Ketorolac [Toradol] 15 mg IM ONETIME ONE - Assessment/Plan Last 24 Hours: My Active Orders 03/14/21 22:25 Furosemide [Lasix] 20 mg PO ONETIME ONE Spironolactone [Aldactone] 50 mg PO ONETIME ONE 03/14/21 22:26 Ketorolac [Toradol] 15 mg IM ONETIME ONE
== END 2021-03-14 22:50 | disposition home or self-care (01) ==
LOC: MW.ED 20:44
DX: R10.11 Right upper quadrant pain (principal); Z86.16 Personal history of COVID-19
CPT/HCPCS: 96372; 99283; A9270; J1885

== ENCOUNTER 2021-03-17 16:09 | Emergency (ER) | payer BC ==
[2021-03-17 18:02] LABS: BLOOD UREA NITROGEN,BUN 7 mg/dL (7.0-18.0); CARBON DIOXIDE,CO2 24.6 mmol/L (21.0-32.0); CHLORIDE,CL 108 mmol/L (98-107); GLUCOSE RANDOM 118 mg/dL (74-106); LIPASE 198 U/L (73-393); POTASSIUM,K 3.6 mmol/L (3.5-5.1); SODIUM,NA 143 mmol/L (136-145)
[2021-03-17] MEDS ORDERED: HYDROmorphone 2 MG Tab PO STA (18:46)
--- NOTE | 2021-03-17 19:29 | EDM.PDOC ---
ED HPI GENERAL MEDICAL PROBLEM - General Chief Complaint: Abdominal Pain Stated Complaint: LIVER PAIN Time Seen by Provider: 03/17/21 18:14 - History of Present Illness INITIAL COMMENTS - FREE TEXT/NARRATIVE: CHIEF COMPLAINT(S): Bleeding liver HISTORY OF PRESENT ILLNESS: This is a 35-year-old woman with a past medical history of cirrhosis secondary to alcohol use and pancreatitis who comes to the emergency department with a chief complaint of bleeding liver. The patient states that she was at her primary care physician's office to get the results of her EGD from her GI specialist Dr. Bartholomew. She states that while at the office she had some right upper quadrant abdominal pain which she describes as 10 out of 10 without any radiation. She denies any blood in her stool, nausea, vomiting. She states that they did review the EGD and her primary care physician told her to come to the emergency department for a CT scan as her EGD showed a bleeding liver. She denies any fevers, chills, chest pain, shortness of breath. She denies any other symptoms. She has not yet taken any pain medication therefore there are no relieving factors. There are no exacerbating factors. REVIEW OF SYSTEMS: Constitutional: Denies fever, chills. Eyes: Denies eye pain Ears, Nose, Mouth, & Throat: Denies earache Cardiovascular: Denies chest pain Respiratory: Denies shortness of breath Gastrointestinal: Positive for right upper quadrant abdominal pain. Denies nausea, vomiting, diarrhea, hematochezia, hematemesis, bilious emesis Genitourinary: Denies hematuria Skin:Denies a rash MSK: Denies joint pain Neurological: Denies blurred vision Psychiatric: Denies depression PAST MEDICAL HISTORY: As per history of present illness and as reviewed below otherwise noncontributory. SURGICAL HISTORY: As per history of present illness and as reviewed below otherwise noncontributory. SOCIAL HISTORY: As per history of present illness and as reviewed below otherwise noncontributory. FAMILY HISTORY: As per history of present illness and as reviewed below otherwise noncontributory. EXAMINATION OF ORGAN SYSTEMS/BODY AREAS: Constitutional: Blood pressure is 111/64, heart rate 86, respiratory rate 18 with an oxygen saturation 1% on room air. Temperature 36.1 General: Overall well-appearing woman who is in no acute distress. Psychiatric: Appropriate mood and affect. Eyes: No scleral icterus or conjunctival erythema ENMT: Moist mucous membranes. No pharyngeal erythema Cardiovascular: Regular, rate, and rhythm. No gallops, murmurs, or rubs. Bilateral upper extremity pulses symmetric and intact. No peripheral edema. No JVD. Respiratory: Lungs clear to auscultation bilaterally. No wheezes, rales, or rhonchi. Gastrointestinal: Soft, minimal tenderness in the right upper quadrant. Nondistended. No rebound or guarding. Normoactive bowel sounds Genitourinary: No suprapubic tenderness Musculoskeletal: Normal range of motion. Skin: No lesions or abrasions. Neurological: Alert, GCS 15 MEDICAL DECISION MAKING AND COURSE IN THE ED WITH INTERPRETATION/REVIEW OF DIAGNOSTIC STUDIES: This is a 35-year-old woman with a past medical history of cirrhosis secondary to alcohol use and pancreatitis who comes to the emergency department with a chief complaint of bleeding liver in a patient who has right upper quadrant pain. The patient's vitals are normal. We did get the records from her EGD. The EGD report stated that there was inflammation in the stomach otherwise no esophageal varices, ulcers or other abnormality. At this time I did discuss with patient that I provide her with Dilaudid for pain relief at her home dose and encourage p.o. intake. I did discuss with her that at this time I do not believe a CT is indicated as an EGD does not evaluate for bleeding in the liver. It is uncertain as to what her primary care physician was referring to however her vitals are normal and she appears to be at her baseline. Will obtain screening labs and reevaluate. Laboratory: CBC reveals a normocytic anemia with a hemoglobin of 10.9 and hematocrit of 33.5 which is around the patient's baseline. CMP reveals hyperchloremia at 108, hyperglycemia at 118, hypocalcemia at 7.9, hypoalbuminemia at 3.1 otherwise no transaminitis. Urinalysis was a clean catch and was trace for leukocyte esterase, negative for nitrites, and negative for blood. Interpretation: Negative. On reevaluation I did discuss that she would be stable for discharge. I discussed with her that if she had any worsening pain or blood in her stool or fevers that she needs to return to the emergency department. She was amenable discharge at this time and had no further questions. DISPOSITION: The patient was discharged home in stable condition. The patient will follow up with primary care physician for further evaluation and treatment. CONDITION: Fair PROCEDURES: None FINAL IMPRESSION(S)/DIAGNOSES: 1. Acute on chronic right upper quadrant abdominal pain Antony Chacon M.D.. right upper quadrant Pain Score (Numeric/FACES): 10 - Related Data Allergies Allergy/AdvReac Type Severity Reaction Status Date / Time No Known Allergies Allergy Verified 03/18/21 16:52 Home Meds: Home Meds Furosemide [Lasix] 20 mg PO DAILY tablet 11/17/20 [Rx] Lactulose 10 gm PO BID PRN 10 Days #1 bottle 11/17/20 [Rx] LORazepam [Ativan] 0.5 mg PO BID PRN 12/10/20 [History] Spironolactone [Aldactone] 50 mg PO DAILY 12/10/20 [History] Omeprazole Magnesium [Prilosec Otc] 20 mg PO BID PRN 01/05/21 [History] Ondansetron [Zofran ODT] 4 mg PO Q6H PRN #12 tab.dis 02/09/21 [Rx] Ondansetron [Zofran ODT] 4 mg PO Q6H PRN #12 tab.dis 02/22/21 [Rx] Folic Acid 03/18/21 [History] Past Medical History HEENT History: Reports: None Other HEENT History: Yellow sclera Cardiovascular History: Reports: None Respiratory History: Reports: Other (See Below) Other Respiratory History: Pluerisy Gastrointestinal History: Reports: Cirrhosis, Other (See Below) Other Gastrointestinal History: heartburn Genitourinary History: Reports: Other (See Below) Other Genitourinary History: yeast infection during [employer] History: Reports: Musculoskeletal History: Reports: Back Pain, Chronic Other Musculoskeletal History: hx herniated disc in lower back Neurological History: Reports: None Psychiatric History: Reports: Anxiety Endocrine/Metabolic History: Reports: None Insulin Pump Model and Sales Rep: None Hematologic History: Reports: None Immunologic History: Reports: None Oncologic (Cancer) History: Reports: Cervix Dermatologic History: Reports: None - Infectious Disease History Infectious Disease History: Reports: Chicken Pox, Influenza, Novel Coronavirus - Past Surgical History Head Surgeries/Procedures: Reports: None HEENT Surgical History: Reports: Oral Surgery Other HEENT Surgeries/Procedures: teeth removed at 26 years of age wears dentures Respiratory Surgical History: Reports: None GI Surgical History: Reports: Other (See Below) Other GI Surgeries/Procedures: Weekly paracentesis in [place] Female Surgical History: Reports: None Musculoskeletal Surgical History: Reports: None Oncologic Surgical History: Reports: Other (See Below) Other Oncologic Surgeries/Procedures: LEEP Social & Family History - Family History Family Medical History: No Pertinent Family History HEENT: Reports: Cataract, Glaucoma, Impaired Vision Cardiac: Reports: CAD, High Cholesterol, Hypertension GI: Reports: Cholelithiasis, Hepatitis OBGYN: Reports: Endometriosis Musculoskeletal: Reports: Arthritis, Back pain, Chronic, Neck Pain, Chronic, Osteoarthritis, RA Neurological: Reports: Alzheimers Disease, Dementia, Parkinson's Psychiatric: Reports: ADD, ADHD, Anxiety, Depression, Emotional Problems, Learning Disability, Mood Swings, Panic Attack Endocrine/Metabolic: Reports: Diabetes, type II, Hyperthyroidism Oncologic: Reports: Leukemia - Caffeine Use Caffeine Use: Reports: None ED ROS GENERAL - Review of Systems Review Of Systems: See Below ED EXAM, GENERAL - Physical Exam Exam: See Below Course - Vital Signs Last Recorded V/S: Last Vital Signs Temp 36.1 C 03/17/21 17:08 Pulse 78 03/17/21 19:40 Resp 17 03/17/21 19:40 BP 132/83 03/17/21 19:40 Pulse Ox 100 03/17/21 19:40 - Orders/Labs/Meds Labs: Laboratory Tests 03/17/21 03/17/21 03/17/21 Range/Units 17:16 17:16 17:26 WBC 4.28 (4.0-11.0) K/uL RBC 3.62 L (4.30-5.90) M/uL Hgb 10.9 L (12.0-16.0) g/dL Hct 33.5 L (36.0-46.0) % MCV 92.5 (80.0-98.0) fL MCH 30.1 (27.0-32.0) pg MCHC 32.5 (31.0-37.0) g/dL RDW Std Deviation 55.2 (28.0-62.0) fl RDW Coeff of Blue 16 H (11.0-15.0) % Plt Count 258 (150-400) K/uL MPV 10.90 (7.40-12.00) fL Neut % (Auto) 55.4 (48.0-80.0) % Lymph % (Auto) 35.7 (16.0-40.0) % Anderson % (Auto) 5.4 (0.0-15.0) % Eos % (Auto) 2.3 (0.0-7.0) % Baso % (Auto) 1.2 (0.0-1.5) % Neut # (Auto) 2.4 (1.4-5.7) K/uL Lymph # (Auto) 1.5 (0.6-2.4) K/uL Anderson # (Auto) 0.2 (0.0-0.8) K/uL Eos # (Auto) 0.1 (0.0-0.7) K/uL Baso # (Auto) 0.1 (0.0-0.1) K/uL Nucleated RBC % 0.0 /100WBC Nucleated RBCs # 0 K/uL Sodium 143 (136-145) mmol/L Potassium 3.6 (3.5-5.1) mmol/L Chloride 108 H (98-107) mmol/L Carbon Dioxide 24.6 (21.0-32.0) mmol/L BUN 7 (7.0-18.0) mg/dL Creatinine 0.7 (0.6-1.0) mg/dL Est Cr Clr Drug Dosing 87.87 mL/min Estimated GFR (MDRD) > 60.0 ml/min Glucose 118 H (74-106) mg/dL Calcium 7.9 L (8.5-10.1) mg/dL Total Bilirubin 0.2 (0.2-1.0) mg/dL AST 16 (15-37) IU/L ALT 17 (14-63) IU/L Alkaline Phosphatase 77 (46-116) U/L Total Protein 6.9 (6.4-8.2) g/dL Albumin 3.1 L (3.4-5.0) g/dL Globulin 3.8 (2.6-4.0) g/dL Albumin/Globulin Ratio 0.8 L (0.9-1.6) Lipase 198 (73-393) U/L Urine Color YELLOW Urine Appearance CLEAR Urine pH 6.0 (5.0-8.0) Ur Specific [place] <= 1.005 (1.001-1.035) Urine Protein NEGATIVE (NEGATIVE) mg/dL Urine Glucose (UA) NEGATIVE (NEGATIVE) mg/dL Urine Ketones NEGATIVE (NEGATIVE) mg/dL Urine Occult Blood NEGATIVE (NEGATIVE) Urine Nitrite NEGATIVE (NEGATIVE) Urine Bilirubin NEGATIVE (NEGATIVE) Urine Urobilinogen 0.2 (<2.0) EU/dL Ur Leukocyte Esterase TRACE H (NEGATIVE) Urine RBC 0-1 (0-2/HPF) Urine WBC 0-3 (0-5/HPF) Ur Epithelial Cells FEW (NONE-FEW) Urine Bacteria FEW (NEGATIVE) Urine HCG, Qual (NEGATIVE) 03/17/21 Range/Units 17:26 WBC (4.0-11.0) K/uL RBC (4.30-5.90) M/uL Hgb (12.0-16.0) g/dL Hct (36.0-46.0) % MCV (80.0-98.0) fL MCH (27.0-32.0) pg MCHC (31.0-37.0) g/dL RDW Std Deviation (28.0-62.0) fl RDW Coeff of Blue (11.0-15.0) % Plt Count (150-400) K/uL MPV (7.40-12.00) fL Neut % (Auto) (48.0-80.0) % Lymph % (Auto) (16.0-40.0) % Anderson % (Auto) (0.0-15.0) % Eos % (Auto) (0.0-7.0) % Baso % (Auto) (0.0-1.5) % Neut # (Auto) (1.4-5.7) K/uL Lymph # (Auto) (0.6-2.4) K/uL Anderson # (Auto) (0.0-0.8) K/uL Eos # (Auto) (0.0-0.7) K/uL Baso # (Auto) (0.0-0.1) K/uL Nucleated RBC % /100WBC Nucleated RBCs # K/uL Sodium (136-145) mmol/L Potassium (3.5-5.1) mmol/L Chloride (98-107) mmol/L Carbon Dioxide (21.0-32.0) mmol/L BUN (7.0-18.0) mg/dL Creatinine (0.6-1.0) mg/dL Est Cr Clr Drug Dosing mL/min Estimated GFR (MDRD) ml/min Glucose (74-106) mg/dL Calcium (8.5-10.1) mg/dL Total Bilirubin (0.2-1.0) mg/dL AST (15-37) IU/L ALT (14-63) IU/L Alkaline Phosphatase (46-116) U/L Total Protein (6.4-8.2) g/dL Albumin (3.4-5.0) g/dL Globulin (2.6-4.0) g/dL Albumin/Globulin Ratio (0.9-1.6) Lipase (73-393) U/L Urine Color Urine Appearance Urine pH (5.0-8.0) Ur Specific [place] (1.001-1.035) Urine Protein (NEGATIVE) mg/dL Urine Glucose (UA) (NEGATIVE) mg/dL Urine Ketones (NEGATIVE) mg/dL Urine Occult Blood (NEGATIVE) Urine Nitrite (NEGATIVE) Urine Bilirubin (NEGATIVE) Urine Urobilinogen (<2.0) EU/dL Ur Leukocyte Esterase (NEGATIVE) Urine RBC (0-2/HPF) Urine WBC (0-5/HPF) Ur Epithelial Cells (NONE-FEW) Urine Bacteria (NEGATIVE) Urine HCG, Qual NEGATIVE (NEGATIVE) Meds: Medications Discontinued Medications Generic Name Dose Route Start Last Admin Trade Name Freq PRN Reason Stop Dose Admin Hydromorphone HCl 2 mg 03/17/21 18:46 03/17/21 19:27 Hydromorphone 2 Mg Tab PO 03/17/21 18:47 2 mg ONETIME STA Administration Departure - Departure Time of Disposition: 19:29 Disposition: Home, Self-Care 01 Condition: Fair Clinical Impression: Chronic abdominal pain - Discharge Information *PRESCRIPTION DRUG MONITORING PROGRAM REVIEWED*: No *COPY OF PRESCRIPTION DRUG MONITORING REPORT IN PATIENT TATE: No Instructions: Abdominal Pain, Adult, [id number] Referrals: Carlin Mansfield MD [Primary Care Provider] - Forms: ED Department Discharge Additional Instructions: You were evaluated today on an emergent basis. At this time we did repeat your laboratory analysis and your hemoglobin your liver enzymes and your bilirubin are all normal and at your baseline. Your vitals were also normal. It is uncertain as to what blood your primary care physician was talking about however the EGD did not show any evidence of bleeding. There was some evidence of some inflammation in your stomach. You typically do not see any bleeding in the liver at in an EGD as it is not visualized with an EGD. I do recommend that she continue to take your home dose of medication. If you have any worsening abdominal pain, passing out or blood in your stool I would like you to return to the emergency department. [facility] [address] [place], [place] [id number] [address] [address] The patient is informed of any results of their evaluation and diagnostic workup and all questions are answered. They are given discharge instructions and return precautions. The patient is stable for discharge. The patient states they understand and agree with the plan and that they will return if their symptoms get worse or if they have any new concerns. The following information is given to patients seen in the emergency department who are being discharged to home. This information is to outline your options for follow-up care. We provide all patients seen in our emergency department with a follow-up referral. The need for follow-up, as well as the timing and circumstances, are variable depending upon the specifics of your emergency department visit. If you don't have a primary care physician on staff, we will provide you with a referral. We always advise you to contact your personal physician following an emergency department visit to inform them of the circumstance of the visit and for follow-up with them and/or the need for any referrals to a consulting specialist. The emergency department will also refer you to a specialist when appropriate. This referral assures that you have the opportunity for follow-up care with a specialist. All of these measure are taken in an effort to provide you with optimal care, which includes your follow-up. Under all circumstances we always encourage you to contact your private physician who remains a resource for coordinating your care. When calling for follow-up care, please make the office aware that this follow-up is from your recent emergency room visit. If for any reason you are refused follow-up, please contact the [facility] Department at and asked to speak to the emergency department charge nurse. Sepsis Event Note (ED) - Evaluation Sepsis Screening Result: No Definite Risk
== END 2021-03-17 19:40 | disposition home or self-care (01) ==
LOC: MW.ED 16:09
DX: R10.11 Right upper quadrant pain (principal); G89.29 Other chronic pain; Z79.899 Other long term (current) drug therapy
CPT/HCPCS: 36415; 80053; 81001; 81025; 83690; 85025; 87086; 99284; A9270; 99283

== ENCOUNTER 2021-03-18 16:33 | Emergency (ER) | payer BC ==
--- NOTE | 2021-03-18 16:45 | EDM.PDOC ---
ED HPI GENERAL MEDICAL PROBLEM - General Stated Complaint: BLOODY STOOL Time Seen by Provider: 03/18/21 16:35 Source of Information: Reports: Patient History Limitations: Reports: No Limitations - History of Present Illness INITIAL COMMENTS - FREE TEXT/NARRATIVE: HISTORY AND PHYSICAL: History of present illness: Patient is a 35-year-old female who presents to the emergency room with complaints of right lower quadrant pain. She is well-known to our emergency room and this is her sixth visit this month for GI related complaints. Past medical history of alcohol abuse, cirrhosis of the liver, esophageal varices, hypokalemia, hematemesis, and depression. Patient's last CT of the abdomen and pelvis with contrast was unremarkable on 03/02/2021. On 03/09/2021 she had a endoscopy at [facility] which was unremarkable, impression noted chronic gastropathy secondary to patient's cirrhosis. No varices, no active bleeding. She states the pain is "so bad... I'll do what ever I need to for pain relief." She reports she has had some bloody stools, this is not new to her. She has a colonoscopy scheduled next week for her chronic bloody stools. Patient denies any fever, chills, headache, change in vision, syncope or near syncope. Denies any chest pain, back pain, shortness of breath or cough. Denies any nausea, vomiting, diarrhea, constipation or dysuria. Patient has been eating and drinking appropriately. Review of systems: As per history of present illness and below otherwise all systems reviewed and negative. Past medical history: As per history of present illness and as reviewed below otherwise noncontributory. Surgical history: As per history of present illness and as reviewed below otherwise noncontributory. Social history: See social history for further information Family history: As per history of present illness and as reviewed below otherwise noncontributory. Physical exam: General: Well developed and well nourished. Alert and orientated x 3. Nontoxic in appearance and in no acute distress. Vital signs are stable and have been reviewed by me. Nursing notes were reviewed. HEENT: Atraumatic, normocephalic, pupils equal and reactive bilaterally, negative for conjunctival pallor or scleral icterus, mucous membranes moist, TMs normal bilaterally, throat clear, neck supple, nontender, trachea midline. No drooling or trismus noted. No meningeal signs. No hot potato voice noted. Lungs: Clear to auscultation bilaterally. No wheezes, rales, or rhonchi. Chest nontender. Normal work of breathing, no accessory muscles used. Heart: S1S2, regular rate and rhythm without overt murmur, gallops, or rubs. No JVD. No peripheral edema Abdomen: Soft, nondistended, nontender. Normoactive bowel sounds. Negative for masses or costovertebral tenderness. Genitourinary/Rectal: This was done with consent and a dispatcher bus and trolley at the bedside. Faintly positive hemoccult stool Good rectal tone. No hemorrhoids noted. Skin: Intact, warm, dry. No lesions or rashes noted. Hematologic: No petechiae or purpra. Mucosa appropriate color and normal nail bed color and refill. Extremities: Atraumatic, moves all extremities per self without difficulty or deficits, negative for cords or calf pain. Neurovascular unremarkable. Neuro: Awake, alert, oriented. Cranial nerves II through XII unremarkable. Cerebellum unremarkable. Motor and sensory unremarkable throughout. Exam nonfoc al. Psychiatric: Mood and affect are appropriate. Normal thought process. Answering questions appropriately. Notes: *This patient was seen and evaluated during the 2019 SARS-CoV-2 novel coronavirus pandemic period. Community viral transmission is ongoing at time of this encounter and the emergency department is operating under pandemic response procedures. 03/17/2021: CBC, CMP, UA, HCGU, Lipase was done and within normal limits. Lab work is unremarkable. CT shows no acute abdominopelvic process identified. No significant change. Patient has been requesting Dilaudid numerous times while here in the ED. Stating its the only thing that helps with her pain. She is refusing Toradol, anything with Tylenol in it, Fentanyl, or additional Tramadol. I have talked with the patient about today's findings, in addition to providing specific details for plan of care. Reassessment at the time of disposition demonstrates that the patient is in no acute distress. The patient is stable for discharge, counseling was provided and we discussed in great detail signs and symptoms that would prompt them to return to the Emergency Department. Medication, follow up and supportive care measures were reviewed and discussed. Voices understanding and is agreeable to plan of care. Denies any further questions or concerns at this time. Diagnostics: CBC, CMP, Lipase, UA Therapeutics: IV fluids, Tramadol, Toradol Prescription: None Impression: Abdominal pain Encounter for pain management Plan: 1. You were evaluated today on an emergent basis. Your lab work and CT are normal. You need to talk to your primary care provider about pain management as this is a chronic issue. We do not refill narcotics in the emergency room. 2. You can take your prescribed medications as directed. 3. We encourage you to follow up with your primary care provider and/or recommended specialist in the next few days for re-evaluation and further care/management. 4. If your symptoms should worsen, new symptoms develop or any of the signs and symptoms we discussed should arise please return to the emergency room or call 911 (if needed). Definitive disposition and diagnosis as appropriate pending reevaluation and review of above. right lower abdomen Pain Score (Numeric/FACES): 10 - Related Data Allergies Allergy/AdvReac Type Severity Reaction Status Date / Time No Known Allergies Allergy Verified 03/18/21 16:52 Home Meds: Home Meds Furosemide [Lasix] 20 mg PO DAILY tablet 11/17/20 [Rx] Lactulose 10 gm PO BID PRN 10 Days #1 bottle 11/17/20 [Rx] LORazepam [Ativan] 0.5 mg PO BID PRN 12/10/20 [History] Spironolactone [Aldactone] 50 mg PO DAILY 12/10/20 [History] Omeprazole Magnesium [Prilosec Otc] 20 mg PO BID PRN 01/05/21 [History] Ondansetron [Zofran ODT] 4 mg PO Q6H PRN #12 tab.dis 02/09/21 [Rx] Ondansetron [Zofran ODT] 4 mg PO Q6H PRN #12 tab.dis 02/22/21 [Rx] Folic Acid 03/18/21 [History] Past Medical History HEENT History: Reports: None Other HEENT History: Yellow sclera Cardiovascular History: Reports: None Respiratory History: Reports: Other (See Below) Other Respiratory History: Pluerisy Gastrointestinal History: Reports: Cirrhosis, Other (See Below) Other Gastrointestinal History: heartburn Genitourinary History: Reports: Other (See Below) Other Genitourinary History: yeast infection during [employer] History: Reports: Musculoskeletal History: Reports: Back Pain, Chronic Other Musculoskeletal History: hx herniated disc in lower back Neurological History: Reports: None Psychiatric History: Reports: Anxiety Endocrine/Metabolic History: Reports: None Insulin Pump Model and Barge Hand: None Hematologic History: Reports: None Immunologic History: Reports: None Oncologic (Cancer) History: Reports: Cervix Dermatologic History: Reports: None - Infectious Disease History Infectious Disease History: Reports: Chicken Pox, Influenza, Novel Coronavirus - Past Surgical History Head Surgeries/Procedures: Reports: None HEENT Surgical History: Reports: Oral Surgery Other HEENT Surgeries/Procedures: teeth removed at 26 years of age wears dentures Respiratory Surgical History: Reports: None GI Surgical History: Reports: Other (See Below) Other GI Surgeries/Procedures: Weekly paracentesis in [place]Rad[facility] Dept Female Surgical History: Reports: None Musculoskeletal Surgical History: Reports: None Oncologic Surgical History: Reports: Other (See Below) Other Oncologic Surgeries/Procedures: LEEP Social & Family History - Family History Family Medical History: No Pertinent Family History HEENT: Reports: Cataract, Glaucoma, Impaired Vision Cardiac: Reports: CAD, High Cholesterol, Hypertension GI: Reports: Cholelithiasis, Hepatitis OBGYN: Reports: Endometriosis Musculoskeletal: Reports: Arthritis, Back pain, Chronic, Neck Pain, Chronic, Osteoarthritis, RA Neurological: Reports: Alzheimers Disease, Dementia, Parkinson's Psychiatric: Reports: ADD, ADHD, Anxiety, Depression, Emotional Problems, Learning Disability, Mood Swings, Panic Attack Endocrine/Metabolic: Reports: Diabetes, type II, Hyperthyroidism Oncologic: Reports: Leukemia - Caffeine Use Caffeine Use: Reports: None ED ROS GENERAL - Review of Systems Review Of Systems: Comprehensive ROS is negative, except as noted in HPI. ED EXAM, GI/ABD - Physical Exam Exam: See Below (See dictation) Course - Vital Signs Last Recorded V/S: Last Vital Signs Temp 98.0 F 03/18/21 16:43 Pulse 94 03/18/21 16:43 Resp 20 03/18/21 16:43 BP 106/50 L 03/18/21 16:43 Pulse Ox 100 03/18/21 16:43 - Orders/Labs/Meds Orders: Active Orders 24 hr Category Date Time Status Hemoccult [Fecal Occult Blood Collection] [RC] Care 03/18/21 17:02 Active ASDIRECTED Labs: Laboratory Tests 03/18/21 03/18/2121 Range/Units 17:05 17:05 17:41 WBC 4.76 (4.0-11.0) K/uL RBC 3.65 L (4.30-5.90) M/uL Hgb 11.0 L (12.0-16.0) g/dL Hct 33.5 L (36.0-46.0) % MCV 91.8 (80.0-98.0) fL MCH 30.1 (27.0-32.0) pg MCHC 32.8 (31.0-37.0) g/dL RDW Std Deviation 54.0 (28.0-62.0) fl RDW Coeff of Blue 16 H (11.0-15.0) % Plt Count 266 (150-400) K/uL MPV 11.00 (7.40-12.00) fL Neut % (Auto) 58.6 (48.0-80.0) % Lymph % (Auto) 31.3 (16.0-40.0) % [place] % (Auto) 6.9 (0.0-15.0) % Eos % (Auto) 2.1 (0.0-7.0) % Baso % (Auto) 1.1 (0.0-1.5) % Neut # (Auto) 2.8 (1.4-5.7) K/uL Lymph # (Auto) 1.5 (0.6-2.4) K/uL [place] # (Auto) 0.3 (0.0-0.8) K/uL Eos # (Auto) 0.1 (0.0-0.7) K/uL Baso # (Auto) 0.1 (0.0-0.1) K/uL Nucleated RBC % 0.0 /100WBC Nucleated RBCs # 0 K/uL Sodium 141 (136-145) mmol/L Potassium 3.5 (3.5-5.1) mmol/L Chloride 106 (98-107) mmol/L Carbon Dioxide 27.3 (21.0-32.0) mmol/L BUN 5 L (7.0-18.0) mg/dL Creatinine 0.8 (0.6-1.0) mg/dL Est Cr Clr Drug Dosing 76.89 mL/min Estimated GFR (MDRD) > 60.0 ml/min Glucose 95 (74-106) mg/dL Calcium 8.1 L (8.5-10.1) mg/dL Total Bilirubin 0.3 (0.2-1.0) mg/dL AST 19 (15-37) IU/L ALT 17 (14-63) IU/L Alkaline Phosphatase 80 (46-116) U/L Total Protein 6.9 (6.4-8.2) g/dL Albumin 3.2 L (3.4-5.0) g/dL Globulin 3.7 (2.6-4.0) g/dL Albumin/Globulin Ratio 0.9 (0.9-1.6) Lipase 208 (73-393) U/L Urine Color YELLOW Urine Appearance CLEAR Urine pH 7.0 (5.0-8.0) Ur Specific [place] <= 1.005 (1.001-1.035) Urine Protein NEGATIVE (NEGATIVE) mg/dL Urine Glucose (UA) NEGATIVE (NEGATIVE) mg/dL Urine Ketones NEGATIVE (NEGATIVE) mg/dL Urine Occult Blood TRACE-INTACT H (NEGATIVE) Urine Nitrite NEGATIVE (NEGATIVE) Urine Bilirubin NEGATIVE (NEGATIVE) Urine Urobilinogen 0.2 (<2.0) EU/dL Ur Leukocyte Esterase NEGATIVE (NEGATIVE) Urine RBC 0-2 (0-2/HPF) Urine WBC 2-3 (0-5/HPF) Ur Epithelial Cells FEW (NONE-FEW) Amorphous Sediment FEW (NEGATIVE) Urine Bacteria FEW (NEGATIVE) Urine Mucus FEW (NONE-MOD) Meds: Medications Discontinued Medications Generic Name Dose Route Start Last Admin Trade Name Galoq PRN Reason Stop Dose Admin Iopamidol 100 ml 03/18/21 19:08 03/18/21 19:09 Iopamidol 755 Mg/Ml 100 Ml Bottle IVPUSH 03/18/21 19:09 100 ml ONETIME ONE Administration Ketorolac Tromethamine 15 mg 03/18/21 20:12 Ketorolac 15 Mg/Ml Sdv IM 03/18/21 20:13 ONETIME ONE Tramadol HCl 50 mg 03/18/21 17:25 03/18/21 17:39 Tramadol 50 Mg Tab PO 03/18/21 17:26 50 mg ONETIME ONE Administration Departure - Departure Time of Disposition: 20:12 Disposition: Home, Self-Care 01 Clinical Impression: Encounter for pain management Abdominal pain Qualifiers: Abdominal location: generalized Qualified Code(s): R10.84 - Generalized abdominal pain - Discharge Information Instructions: Abdominal Pain, Adult, [id number] Referrals: Carlin Mansfield MD [Primary Care Provider] - Additional Instructions: The following information is given to patients seen in the emergency department who are being discharged to home. This information is to outline your options for follow-up care. We provide all patients seen in our emergency department with a follow-up referral. The need for follow-up, as well as the timing and circumstances, are variable depending upon the specifics of your emergency department visit. If you don't have a primary care physician on staff, we will provide you with a referral. We always advise you to contact your personal physician following an emergency department visit to inform them of the circumstance of the visit and for follow-up with them and/or the need for any referrals to a consulting specialist. The emergency department will also refer you to a specialist when appropriate. This referral assures that you have the opportunity for follow-up care with a specialist. All of these measure are taken in an effort to provide you with optimal care, which includes your follow-up. Under all circumstances we always encourage you to contact your private physician who remains a resource for coordinating your care. When calling for follow-up care, please make the office aware that this follow-up is from your recent emergency room visit. If for any reason you are refused follow-up, please contact the [facility] at and asked to speak to the emergency department charge nurse. [facility] [address] [place] [id number] [address] [id number] Thank you for choosing the [facility] emergency department in [place] for your medical needs today. It was a pleasure caring for you. Today you were seen in the emergency department for abdominal pain. 1. You were evaluated today on an emergent basis. Your lab work and CT are normal. You need to talk to your primary care provider about pain management as this is a chronic issue. We do not refill narcotics in the emergency room. 2. You can take your prescribed medications as directed. 3. We encourage you to follow up with your primary care provider and/or recommended specialist in the next few days for re-evaluation and further care/management. 4. If your symptoms should worsen, new symptoms develop or any of the signs and symptoms we discussed should arise please return to the emergency room or call 911 (if needed). Sepsis Event Note (ED) - Focused Exam Vital Signs: Vital Signs Temp Pulse Resp BP Pulse Ox 03/18/21 16:43 98.0 F 94 20 106/50 L 100 - My Orders Last 24 Hours: My Active Orders 03/18/21 17:02 Hemoccult [Fecal Occult Blood Collection] [RC] ASDIRECTED - Assessment/Plan Last 24 Hours: My Active Orders 03/18/21 17:02 Hemoccult [Fecal Occult Blood Collection] [RC] ASDIRECTED
[2021-03-18] MEDS ORDERED: traMADol 50 MG Tab PO ONE (17:25)
[2021-03-18 17:39] LABS: BLOOD UREA NITROGEN,BUN 5 mg/dL (7.0-18.0); CARBON DIOXIDE,CO2 27.3 mmol/L (21.0-32.0); CHLORIDE,CL 106 mmol/L (98-107); GLUCOSE RANDOM 95 mg/dL (74-106); LIPASE 208 U/L (73-393); POTASSIUM,K 3.5 mmol/L (3.5-5.1); SODIUM,NA 141 mmol/L (136-145)
[2021-03-18] MEDS ORDERED: Iopamidol 755 Mg/ML 100 ML Bottle IVPUSH ONE (19:08)
--- NOTE | 2021-03-18 20:08 | CT ---
INDICATION: Abdominal pain. TECHNIQUE: Contrast-enhanced CT of the abdomen and pelvis. COMPARISON: March 02, 2021. FINDINGS: Clear included lung bases. Normal-appearing liver, spleen, pancreas, and adrenal glands. Contracted gallbladder containing small stones. No pericholecystic fluid. The kidneys are negative for is masses or obstruction. Normal caliber abdominal aorta and iliac arteries. Normal inferior vena cava. Normal appendix image 103 series 2. Scattered sigmoid diverticula. No diverticulitis. No bowel obstruction or ileus. No ascites or lymphadenopathy. The uterus, urinary bladder, and ovaries are unremarkable. The included skeleton is unremarkable. IMPRESSION: No acute abdominopelvic process identified. No significant change. Please note that all CT scans at this facility use dose modulation, iterative reconstruction, and/or weight-based dosing when appropriate to reduce radiation dose to as low as reasonably achievable. Dictated by Kleber Nance MD @ 03/18/2021 8:05:[address] Kleber Nance @ Mar 18 2021 8:05PM
[2021-03-18] MEDS ORDERED: Ketorolac 15 MG/ML SDV IM ONE (20:12)
[2021-03-18] MEDS ORDERED: Ketorolac 15 MG/ML SDV ONE (20:13)
[2021-03-18] MEDS ORDERED: Ketorolac 15 MG/ML SDV IVPUSH STA (20:18)
== END 2021-03-18 20:30 | disposition home or self-care (01) ==
LOC: MW.ED 16:33
DX: R10.84 Generalized abdominal pain (principal); R10.31 Right lower quadrant pain
CPT/HCPCS: 36415; 74177; 80053; 81001; 83690; 85025; 96374; 99284; A9270; J1885; Q9967

== ENCOUNTER 2021-03-26 14:43 | Emergency (ER) | payer BC ==
[2021-03-26] MEDS ORDERED: HYDROmorphone 2 MG Tab PO ONE (15:12)
--- NOTE | 2021-03-26 15:32 | EDM.PDOC ---
ED HPI GENERAL MEDICAL PROBLEM - General Chief Complaint: Abdominal Pain Stated Complaint: GALLSTONES AND STOMACH PAIN Time Seen by Provider: 03/26/21 14:50 Source of Information: Reports: Patient - History of Present Illness INITIAL COMMENTS - FREE TEXT/NARRATIVE: 35-year-old female presenting with right upper quadrant pain which is an acute flareup of her chronic abdominal pain. She has a prior history of multiple ED visits for cirrhosis, alcoholic liver disease, cholelithiasis and chronic abdominal pain for which she has been taking multiple narcotic medications and for which she is requesting Dilaudid by name. Her chief complaint is that today while working at [employer] bags she bumped one against her abdominal wall and this caused increase in her pain, reported to be an 8-10 out of 10. The patient was seen twice last week here and also in the interim seen at the hospital in [place] and [place] on separate occasions all for the same pain. She reports she has gallstones and she has upcoming gallbladder cholecystectomy planned for a few months from now. She is currently under pain management by her primary care physician and reports that she has stopped taking all her pain medications and is working on weaning herself off of the lorazepam as well. She reports she can only take morphine, fentanyl and Dilaudid. Other medication she does not tolerate or do not help at all with her pain. Abdomen Pain Score (Numeric/FACES): 9 - Related Data Allergies Allergy/AdvReac Type Severity Reaction Status Date / Time No Known Allergies Allergy Verified 03/26/21 14:52 Home Meds: Home Meds Furosemide [Lasix] 20 mg PO DAILY tablet 11/17/20 [Rx] Lactulose 10 gm PO BID PRN 10 Days #1 bottle 11/17/20 [Rx] LORazepam [Ativan] 0.5 mg PO BID PRN 12/10/20 [History] Spironolactone [Aldactone] 50 mg PO DAILY 12/10/20 [History] Omeprazole Magnesium [Prilosec Otc] 20 mg PO BID PRN 01/05/21 [History] Ondansetron [Zofran ODT] 4 mg PO Q6H PRN #12 tab.dis 02/09/21 [Rx] Ondansetron [Zofran ODT] 4 mg PO Q6H PRN #12 tab.dis 02/22/21 [Rx] Folic Acid 03/18/21 [History] Past Medical History HEENT History: Reports: None Other HEENT History: Yellow sclera Cardiovascular History: Reports: None Respiratory History: Reports: Other (See Below) Other Respiratory History: Pluerisy Gastrointestinal History: Reports: Cirrhosis, Other (See Below) Other Gastrointestinal History: heartburn Genitourinary History: Reports: Other (See Below) Other Genitourinary History: yeast infection during [employer] History: Reports: Musculoskeletal History: Reports: Back Pain, Chronic Other Musculoskeletal History: hx herniated disc in lower back Neurological History: Reports: None Psychiatric History: Reports: Anxiety Endocrine/Metabolic History: Reports: None Insulin Pump Model and [employer]: None Hematologic History: Reports: None Immunologic History: Reports: None Oncologic (Cancer) History: Reports: Cervix Dermatologic History: Reports: None - Infectious Disease History Infectious Disease History: Reports: Chicken Pox, Influenza, Novel Coronavirus - Past Surgical History Head Surgeries/Procedures: Reports: None HEENT Surgical History: Reports: Oral Surgery Other HEENT Surgeries/Procedures: teeth removed at 26 years of age wears dentures Respiratory Surgical History: Reports: None GI Surgical History: Reports: Other (See Below) Other GI Surgeries/Procedures: Weekly paracentesis in [place]-Radiology Dept Female Surgical History: Reports: None Musculoskeletal Surgical History: Reports: None Oncologic Surgical History: Reports: Other (See Below) Other Oncologic Surgeries/Procedures: LEEP Social & Family History - Family History Family Medical History: No Pertinent Family History HEENT: Reports: Cataract, Glaucoma, Impaired Vision Cardiac: Reports: CAD, High Cholesterol, Hypertension GI: Reports: Cholelithiasis, Hepatitis OBGYN: Reports: Endometriosis Musculoskeletal: Reports: Arthritis, Back pain, Chronic, Neck Pain, Chronic, Osteoarthritis, RA Neurological: Reports: Alzheimers Disease, Dementia, Parkinson's Psychiatric: Reports: ADD, ADHD, Anxiety, Depression, Emotional Problems, Learning Disability, Mood Swings, Panic Attack Endocrine/Metabolic: Reports: Diabetes, type II, Hyperthyroidism Oncologic: Reports: Leukemia - Tobacco Use Tobacco Use Status *Q: Never Tobacco User - Caffeine Use Caffeine Use: Reports: None - Recreational Drug Use Recreational Drug Use: No ED ROS GENERAL - Review of Systems Review Of Systems: See Below Constitutional: Reports: No Symptoms Cardiovascular: Reports: No Symptoms GI/Abdominal: Reports: Abdominal Pain (Acute on chronic) ED EXAM, GI/ABD - Physical Exam Exam: See Below General Appearance: Alert, WD/WN, No Apparent Distress Head: Atraumatic, Normocephalic Neck: Normal Inspection Respiratory/Chest: No Respiratory Distress Cardiovascular: Regular Rate, Rhythm GI/Abdominal Exam: Soft, No Organomegaly, No Distention, No Mass, Other (Tenderness right upper quadrant. No rebound or guarding). No: Guarding (Female) Exam: Deferred Neurological: Alert, Oriented Psychiatric: Normal Affect, Normal Mood Skin Exam: Warm, Dry, Intact, Normal Color Course - Vital Signs Text/Narrative:: Patient again presenting with acute flare of her chronic pain, today for a minor traumatic injury: bumped in the abdomen with a supermarket bag. She already had 2 CT scans in the last week for her abdominal pain, both of which were negative. Requesting Dilaudid IV by name and route. Discussed with patient no indication for IV pain medications at this time but as she cannot take Tylenol or ibuprofen and Toradol has not helped her in the past will give one-time dose of p.o. Dilaudid. However I did discuss with the patient at length that she will need to follow-up with her PCP who is also at her pain management physician to better work on her pain and avoid repeat visits to the emergency department for recurrent episodes of her chronic pain. Discussed plan for avoidance of narcotics. Discussed need to first consult with her physician prior to coming to the emergency department for recurrence of her chronic pain but if pain is severe or changed, return to the emergency department. Last Recorded V/S: Last Vital Signs Temp 96.9 F 03/26/21 14:53 Pulse 97 03/26/21 14:53 Resp 16 03/26/21 14:53 BP 108/67 03/26/21 14:53 Pulse Ox 99 03/26/21 14:53 - Orders/Labs/Meds Meds: Medications Discontinued Medications Generic Name Dose Route Start Last Admin Trade Name Tanvir PRN Reason Stop Dose Admin Hydromorphone HCl 1 mg 03/26/21 15:12 03/26/21 15:44 Hydromorphone 2 Mg Tab PO 03/26/21 15:13 1 mg ONETIME ONE Administration Departure - Departure Time of Disposition: 15:39 Disposition: Home, Self-Care 01 Clinical Impression: Abdominal pain Qualifiers: Abdominal location: generalized Qualified Code(s): R10.84 - Generalized abdominal pain - Discharge Information Instructions: Abdominal Pain, Adult, [id number] Referrals: Carlin Mansfield MD [Primary Care Provider] - 1 Day Forms: ED Department Discharge Additional Instructions: The following information is given to patients seen in the emergency department who are being discharged to home. This information is to outline your options for follow-up care. We provide all patients seen in our emergency department with a follow-up referral. The need for follow-up, as well as the timing and circumstances, are variable depending upon the specifics of your emergency department visit. If you don't have a primary care physician on staff, we will provide you with a referral. We always advise you to contact your personal physician following an emergency department visit to inform them of the circumstance of the visit and for follow-up with them and/or the need for any referrals to a consulting sp ecialist. The emergency department will also refer you to a specialist when appropriate. This referral assures that you have the opportunity for follow-up care with a specialist. All of these measure are taken in an effort to provide you with optimal care, which includes your follow-up. Under all circumstances we always encourage you to contact your private physician who remains a resource for coordinating your care. When calling for follow-up care, please make the office aware that this follow-up is from your recent emergency room visit. If for any reason you are refused follow-up, please contact the [facility] Emergency Department at and asked to speak to the emergency department charge nurse. Sepsis Event Note (ED) - Evaluation Sepsis Screening Result: No Definite Risk - Focused Exam Vital Signs: Vital Signs Temp Pulse Resp BP Pulse Ox 03/26/21 14:53 96.9 F 97 16 108/67 99
[2021-03-26] MEDS ORDERED: Ketorolac 30 MG/ML SDV IM ONE (16:13)
== END 2021-03-26 16:39 | disposition home or self-care (01) ==
LOC: MW.ED 14:43
DX: R10.84 Generalized abdominal pain (principal); R10.811 Right upper quadrant abdominal tenderness; Z79.899 Other long term (current) drug therapy
CPT/HCPCS: 96372; 99283; A9270; J1885

== ENCOUNTER 2021-03-30 14:04 | Emergency (ER) | payer BC | END 2021-03-30 16:49 | disposition left against medical advice (07) | LOC: MW.ED 14:04 | DX: R10.9 Unspecified abdominal pain (principal); Z53.21 Procedure and treatment not carried out due to patient leaving prior to being seen by health care provider ==

== ENCOUNTER 2021-04-21 23:26 | Emergency (ER) | payer BC ==
[2021-04-22] MEDS ORDERED: Sodium Chloride 0.9% 2.5 ML Syringe FLUSH PRN (00:01)
[2021-04-22] MEDS ORDERED: Sodium Chloride 0.9% 10 ML Syringe FLUSH PRN (00:01)
[2021-04-22] MEDS ORDERED: Ketorolac 15 MG/ML SDV IM ONE (00:01)
[2021-04-22] MEDS ORDERED: Ondansetron 4 MG Tab.DIS PO ONE (00:03)
[2021-04-22 00:48] LABS: BLOOD UREA NITROGEN,BUN 10 mg/dL (7.0-18.0); CHLORIDE,CL 105 mmol/L (98-107); GLUCOSE RANDOM 85 mg/dL (74-106); LIPASE 207 U/L (73-393); POTASSIUM,K 3.8 mmol/L (3.5-5.1); SODIUM,NA 140 mmol/L (136-145)
[2021-04-22] MEDS ORDERED: Dicyclomine 10 MG Cap PO ONE (02:03)
--- NOTE | 2021-04-22 02:06 | EDM.PDOC ---
ED HPI GENERAL MEDICAL PROBLEM - General Chief Complaint: Abdominal Pain Stated Complaint: GALLSTONE PAIN Time Seen by Provider: 04/21/21 23:58 - History of Present Illness INITIAL COMMENTS - FREE TEXT/NARRATIVE: History of present illness: [] The patient states she has right upper quadrant pain. Pain severe for a day or 2. Patient has frequent episodes of pain and says it is because of gallstones. The patient has surgery scheduled in May of this year. The patient is here frequently with pain complaint often because of a fall. Review of systems: As per history of present illness and below otherwise all systems reviewed and negative. Past medical history: As per history of present illness and as reviewed below otherwise noncontributory. Surgical history: As per history of present illness and as reviewed below otherwise noncontributory. Social history: No reported history of drug or alcohol abuse. Family history: As per history of present illness and as reviewed below otherwise noncontributory. Physical exam: Constitutional - well developed, well-nourished and in no acute distress HEENT - normocephalic, no evidence of trauma - external nose and mouth normal - no mass in neck and no JVD - mucosae moist EYES - full EOM, PERRL, no icterus - no evidence of inflammation, injection, or drainage Respiratory - no respiratory distress, equal bilateral expansion, lungs clear to auscultation and no abnormal lung sounds Cardiovascular - Regular Rhythm with S1 and S2 appreciated and no murmur, gallop or rub. GI -tender right upper quadrant. Abdomen soft without distension or organomegaly - normal bowel sounds - no guard or rebound Musculoskeletal no gross deformity of long bones or joints - no tenderness, swelling or edema Neurologic - Alert and oriented times four - CN II-XII grossly intact - motor sensory and coordination symmetrically normal Psychiatric - appropriate mood and affect with normal thought content Hematologic - No petechiae or purpura - mucosa appropriate color and sclera not pale - normal nail bed color and refill Integument - no rash or evidence of trauma - normal turgor Diagnostics: [] Therapeutics: [] Impression: [] Plan: [] Definitive disposition and diagnosis as appropriate pending reevaluation and review of above. Abdomen Pain Score (Numeric/FACES): 8 - Related Data Allergies Allergy/AdvReac Type Severity Reaction Status Date / Time No Known Allergies Allergy Verified 04/21/21 23:42 Home Meds: Home Meds Furosemide [Lasix] 20 mg PO DAILY tablet 11/17/20 [Rx] Lactulose 10 gm PO BID PRN 10 Days #1 bottle 11/17/20 [Rx] LORazepam [Ativan] 0.5 mg PO BID PRN 12/10/20 [History] Spironolactone [Aldactone] 50 mg PO DAILY 12/10/20 [History] Omeprazole Magnesium [Prilosec Otc] 20 mg PO BID PRN 01/05/21 [History] Ondansetron [Zofran ODT] 4 mg PO Q6H PRN #12 tab.dis 02/09/21 [Rx] Ondansetron [Zofran ODT] 4 mg PO Q6H PRN #12 tab.dis 02/22/21 [Rx] Folic Acid 1 tab PO DAILY 03/18/21 [History] Dicyclomine [Bentyl] 20 mg PO TID #3 tab 04/22/21 [Rx] Dicyclomine [Bentyl] 20 mg PO TID PRN #14 tab 04/22/21 [Rx] Past Medical History HEENT History: Reports: None Other HEENT History: Yellow sclera Cardiovascular History: Reports: None Respiratory History: Reports: Other (See Below) Other Respiratory History: Pluerisy Gastrointestinal History: Reports: Cirrhosis, Other (See Below) Other Gastrointestinal History: heartburn Genitourinary History: Reports: Other (See Below) Other Genitourinary History: yeast infection during [employer] History: Reports: Musculoskeletal History: Reports: Back Pain, Chronic Other Musculoskeletal History: hx herniated disc in lower back Neurological History: Reports: None Psychiatric History: Reports: Anxiety Endocrine/Metabolic History: Reports: None 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 Hematologic History: Reports: None Immunologic History: Reports: None Oncologic (Cancer) History: Reports: Cervix Dermatologic History: Reports: None - Infectious Disease History Infectious Disease History: Reports: Chicken Pox, Influenza, Novel Coronavirus - Past Surgical History Head Surgeries/Procedures: Reports: None HEENT Surgical History: Reports: Oral Surgery Respiratory Surgical History: Reports: None GI Surgical History: Reports: Other (See Below) Other GI Surgeries/Procedures: Weekly paracentesis in [place]-Radiology Dept Female Surgical History: Reports: None Musculoskeletal Surgical History: Reports: None Oncologic Surgical History: Reports: Other (See Below) Other Oncologic Surgeries/Procedures: LEEP Social & Family History - Family History Family Medical History: No Pertinent Family History HEENT: Reports: Cataract, Glaucoma, Impaired Vision Cardiac: Reports: CAD, High Cholesterol, Hypertension GI: Reports: Cholelithiasis, Hepatitis OBGYN: Reports: Endometriosis Musculoskeletal: Reports: Arthritis, Back pain, Chronic, Neck Pain, Chronic, Osteoarthritis, RA Neurological: Reports: Alzheimers Disease, Dementia, Parkinson's Psychiatric: Reports: ADD, ADHD, Anxiety, Depression, Emotional Problems, Learning Disability, Mood Swings, Panic Attack Endocrine/Metabolic: Reports: Diabetes, type II, Hyperthyroidism Oncologic: Reports: Leukemia - Caffeine Use Caffeine Use: Reports: None ED ROS GENERAL - Review of Systems Review Of Systems: Comprehensive ROS is negative, except as noted in HPI. ED EXAM, GENERAL - Physical Exam Exam: See Below Free Text/Narrative:: My physical exam is in the HPI. Course - Vital Signs Text/Narrative:: Labs and vital signs do not indicate any acute emergent condition. Last Recorded V/S: Last Vital Signs Temp 36.0 C L 04/21/21 23:42 Pulse 88 04/21/21 23:42 Resp 18 04/21/21 23:42 BP 116/66 04/21/21 23:42 Pulse Ox 99 04/21/21 23:42 - Orders/Labs/Meds Orders: Active Orders 24 hr Category Date Time Status CULTURE URINE [MREF] Stat Lab 04/22/21 00:00 Received Sodium Chloride 0.9% [Saline Flush] Med 04/22/21 00:01 Active 10 ml FLUSH ASDIRECTED PRN Sodium Chloride 0.9% [Saline Flush] Med 04/22/21 00:01 Active 2.5 ml FLUSH ASDIRECTED PRN Saline Lock Insert [OM.PC] Stat Oth 04/22/21 00:01 Ordered Medication Orders Sodium Chloride (Sodium Chloride 0.9% 10 Ml Syringe) 10 ml FLUSH ASDIRECTED PRN PRN Reason: Keep Vein Open Sodium Chloride (Sodium Chloride 0.9% 2.5 Ml Syringe) 2.5 ml FLUSH ASDIRECTED PRN PRN Reason: Keep Vein Open Labs: Laboratory Tests 04/21/21 04/22/21 04/22/21 Range/Units 00:00 00:25 00:25 WBC 6.83 (4.0-11.0) K/uL RBC 3.74 L (4.30-5.90) M/uL Hgb 11.2 L (12.0-16.0) g/dL Hct 33.7 L (36.0-46.0) % MCV 90.1 (80.0-98.0) fL MCH 29.9 (27.0-32.0) pg MCHC 33.2 (31.0-37.0) g/dL RDW Std Deviation 49.4 (28.0-62.0) fl RDW Coeff of Blue 15 (11.0-15.0) % Plt Count 211 (150-400) K/uL MPV 10.70 (7.40-12.00) fL Neut % (Auto) 60.3 (48.0-80.0) % Lymph % (Auto) 25.9 (16.0-40.0) % [place] % (Auto) 10.2 (0.0-15.0) % Eos % (Auto) 2.9 (0.0-7.0) % Baso % (Auto) 0.7 (0.0-1.5) % Neut # (Auto) 4.1 (1.4-5.7) K/uL Lymph # (Auto) 1.8 (0.6-2.4) K/uL [place] # (Auto) 0.7 (0.0-0.8) K/uL Eos # (Auto) 0.2 (0.0-0.7) K/uL Baso # (Auto) 0.1 (0.0-0.1) K/uL Sodium 140 (136-145) mmol/L Potassium 3.8 (3.5-5.1) mmol/L Chloride 105 (98-107) mmol/L Carbon Dioxide 23.0 (21.0-32.0) mmol/L BUN 10 (7.0-18.0) mg/dL Creatinine 0.7 (0.6-1.0) mg/dL Est Cr Clr Drug Dosing TNP Estimated GFR (MDRD) > 60.0 ml/min Glucose 85 (74-106) mg/dL Calcium 9.2 (8.5-10.1) mg/dL Total Bilirubin 0.2 (0.2-1.0) mg/dL AST 16 (15-37) IU/L ALT 17 (14-63) IU/L Alkaline Phosphatase 75 (46-116) U/L Total Protein 6.9 (6.4-8.2) g/dL Albumin 3.2 L (3.4-5.0) g/dL Globulin 3.7 (2.6-4.0) g/dL Albumin/Globulin Ratio 0.9 (0.9-1.6) Lipase 207 (73-393) U/L Urine Color YELLOW Urine Appearance SLT CLOUDY Urine pH 6.0 (5.0-8.0) Ur Specific [place] 1.010 (1.001-1.035) Urine Protein NEGATIVE (NEGATIVE) mg/dL Urine Glucose (UA) NEGATIVE (NEGATIVE) mg/dL Urine Ketones NEGATIVE (NEGATIVE) mg/dL Urine Occult Blood NEGATIVE (NEGATIVE) Urine Nitrite NEGATIVE (NEGATIVE) Urine Bilirubin NEGATIVE (NEGATIVE) Urine Urobilinogen 0.2 (<2.0) EU/dL Ur Leukocyte Esterase TRACE H (NEGATIVE) Urine RBC 0-2 (0-2/HPF) Urine WBC 1-4 (0-5/HPF) Ur Epithelial Cells FEW (NONE-FEW) Urine Bacteria FEW (NEGATIVE) Meds: Medications Generic Name Dose Route Start Last Admin Trade Name Tanvir PRN Reason Stop Dose Admin Sodium Chloride 10 ml 04/22/21 00:01 Sodium Chloride 0.9% 10 Ml Syringe FLUSH ASDIRECTED PRN Keep Vein Open Sodium Chloride 2.5 ml 04/22/21 00:01 Sodium Chloride 0.9% 2.5 Ml Syringe FLUSH ASDIRECTED PRN Keep Vein Open Discontinued Medications Generic Name Dose Route Start Last Admin Trade Name Tanvir PRN Reason Stop Dose Admin Ketorolac Tromethamine 30 mg 04/22/21 00:01 04/22/21 00:33 Ketorolac 15 Mg/Ml Sdv IM 04/22/21 00:02 30 mg ONETIME ONE Administration Ondansetron HCl 4 mg 04/22/21 00:03 04/22/21 00:33 Ondansetron 4 Mg Tab.Dis PO 04/22/21 00:04 4 mg ONETIME ONE Administration Departure - Departure Time of Disposition: 02:04 Disposition: Home, Self-Care 01 Condition: Good Clinical Impression: Abdominal pain - Discharge Information Instructions: Abdominal Pain, Adult, [id number] Referrals: Carlin Mansfield MD [Primary Care Provider] - Additional Instructions: [facility] - Primary Care [address] [place] [address] [facility] [address] [place] [address] The following information is given to patients seen in the emergency department who are being discharged to home. This information is to outline your options for follow-up care. We provide all patients seen in our emergency department with a follow-up referral. The need for follow-up, as well as the timing and circumstances, are variable depending upon the specifics of your emergency department visit. If you don't have a primary care physician on staff, we will provide you with a referral. We always advise you to contact your personal physician following an emergency department visit to inform them of the circumstance of the visit and for follow-up with them and/or the need for any referrals to a consulting specialist. The emergency department will also refer you to a specialist when appropriate. This referral assures that you have the opportunity for follow-up care with a specialist. All of these measure are taken in an effort to provide you with optimal care, which includes your follow-up. Under all circumstances we always encourage you to contact your private physician who remains a resource for coordinating your care. When calling for follow-up care, please make the office aware that this follow-up is from your recent emergency room visit. If for any reason you are refused follow-up, please contact the [facility] Emergency Department at and asked to speak to the emergency department charge nurse. Sepsis Event Note (ED) - Evaluation Sepsis Screening Result: No Definite Risk - Focused Exam Vital Signs: Vital Signs Temp Pulse Resp BP Pulse Ox 04/21/21 23:42 36.0 C L 88 18 116/66 99 - My Orders Last 24 Hours: My Active Orders 04/22/21 00:00 CULTURE URINE [MREF] Stat 04/22/21 00:01 Sodium Chloride 0.9% [Saline Flush] 10 ml FLUSH ASDIRECTED PRN Sodium Chloride 0.9% [Saline Flush] 2.5 ml FLUSH ASDIRECTED PRN Saline Lock Insert [OM.PC] Stat - Assessment/Plan Last 24 Hours: My Active Orders 04/22/21 00:00 CULTURE URINE [MREF] Stat 04/22/21 00:01 Sodium Chloride 0.9% [Saline Flush] 10 ml FLUSH ASDIRECTED PRN Sodium Chloride 0.9% [Saline Flush] 2.5 ml FLUSH ASDIRECTED PRN Saline Lock Insert [OM.PC] Stat
== END 2021-04-22 02:15 | disposition home or self-care (01) ==
LOC: MW.ED 23:26
DX: R10.11 Right upper quadrant pain (principal); Z79.899 Other long term (current) drug therapy
CPT/HCPCS: 36415; 80053; 81001; 83690; 85025; 87086; 96372; 99284; A9270; J1885; 99283

== ENCOUNTER 2021-04-26 16:03 | Emergency (ER) | payer BC ==
[2021-04-26] MEDS ORDERED: Ketorolac 60 MG/2 ML SDV IM ONE (16:44)
[2021-04-26] MEDS ORDERED: Dicyclomine 10 MG Cap PO ONE (16:44)
--- NOTE | 2021-04-26 17:41 | EDM.PDOC ---
ED HPI GENERAL MEDICAL PROBLEM - General Chief Complaint: Abdominal Pain Stated Complaint: LIVER PAIN, GALL STONES, PANCREASE PAIN Time Seen by Provider: 04/26/21 16:05 Source of Information: Reports: Patient History Limitations: Reports: No Limitations - History of Present Illness INITIAL COMMENTS - FREE TEXT/NARRATIVE: HISTORY AND PHYSICAL: History of present illness: Patient is a 35-year-old female who presents emergency room today with concern of right upper quadrant abdominal pain faire up of her chronic RUQ pain slightly worse today than her baseline. Patient does have frequent episodes of right upper quadrant abdominal pain and states that she has chronic right upper quadrant abdominal pain at baseline in relation to gallstones. Patient states she has a surgery scheduled for June 22 of this year with the surgeon at [facility] to remove her gallbladder. Patient states that the right upper quadrant abdominal pain is typical of her usual gallbladder/gallstone pain. Patient denies any change of her right upper quadrant abdominal pain or any trauma or injury. Patient denies fever, chills, chest pain, shortness of breath, or cough. Denies headache, neck stiff ness, change in vision, syncope, or near syncope. Denies nausea, vomiting, diarrhea, constipation, or dysuria. Has not noted any blood in urine or stool. Patient has been eating and drinking appropriately. Review of systems: As per history of present illness and below otherwise all systems reviewed and negative. Past medical history: As per history of present illness and as reviewed below otherwise noncontributory. Surgical history: As per history of present illness and as reviewed below otherwise noncontributory. Social history: See social history for further information Family history: As per history of present illness and as reviewed below otherwise noncontributory. Physical exam: General: Patient is alert, oriented, and in no acute distress. Patient sitting comfortably on exam table. Vitals stable and reviewed by me. HEENT: Atraumatic, normocephalic, pupils equal and reactive bilaterally, negative for conjunctival pallor or scleral icterus, mucous membranes moist, TMs normal bilaterally, throat clear, neck supple, nontender, trachea midline. No drooling or trismus noted. No meningeal signs. No hot potato voice noted. Lungs: Clear to auscultation, breath sounds equal bilaterally, chest nontender. Heart: S1S2, regular rate and rhythm without overt murmur Abdomen: Soft, nondistended, mild right upper quadrant tenderness without guarding, negative zepeda / negative rebound. Negative for masses or hepatosplenomegaly. Negative for costovertebral tenderness. Pelvis: Stable nontender. Genitourinary: Deferred. Rectal: Deferred. Skin: Intact, warm, dry. No lesions or rashes noted. Extremities: Atraumatic, negative for cords or calf pain. Neurovascular unremarkable. Neuro: Awake, alert, oriented. Cranial nerves II through XII unremarkable. Cerebellum unremarkable. Motor and sensory unremarkable throughout. Exam nonfocal. Notes: Patient is a 35-year-old female, with history of chronic right upper quadrant abdominal pain who presents to the ED today with concern of a flareup of her right upper quadrant abdominal pain that started this morning. Patient states that the pain is typical of her usual flareups and not any different in nature. Upon arrival to the ED, patient is vitally stable and well-appearing on exam. Patient does have some mild right upper quadrant tenderness without guarding negative rebound and negative Zepeda sign. Will perform routine lab work. Mild derangements of lab work today unremarkable. Lipase within normal limits. Upon reevaluation of patient, she remains vitally stable and comfortable throughout stay in ED. Signs and symptoms are prompt return to ED thoroughly discussed with patient. Discussed importance for follow-up with her primary care provider. Voices understanding and is agreeable to plan of care. Denies any further questions or concerns at this time. Diagnostics: CBC, CMP, UA, Lipase Therapeutics: Toradol, Bentyl Prescription: None Impression: Acute on chronic right upper quadrant abdominal pain Plan: 1. You can take ibuprofen as directed for pain and discomfort. 2. Follow-up with your primary care provider as discussed. Return to the ED as needed and as discussed. Definitive disposition and diagnosis as appropriate pending reevaluation and review of above. right upper and left lower Pain Score (Numeric/FACES): 9 - Related Data Allergies Allergy/AdvReac Type Severity Reaction Status Date / Time No Known Allergies Allergy Verified 04/26/21 16:28 Home Meds: Home Meds Furosemide [Lasix] 20 mg PO DAILY tablet 11/17/20 [Rx] Lactulose 10 gm PO BID PRN 10 Days #1 bottle 11/17/20 [Rx] LORazepam [Ativan] 0.5 mg PO BID PRN 12/10/20 [History] Spironolactone [Aldactone] 50 mg PO DAILY 12/10/20 [History] Omeprazole Magnesium [Prilosec Otc] 20 mg PO BID PRN 01/05/21 [History] Ondansetron [Zofran ODT] 4 mg PO Q6H PRN #12 tab.dis 02/09/21 [Rx] Ondansetron [Zofran ODT] 4 mg PO Q6H PRN #12 tab.dis 02/22/21 [Rx] Folic Acid 1 tab PO DAILY 03/18/21 [History] Dicyclomine [Bentyl] 20 mg PO TID #3 tab 04/22/21 [Rx] Dicyclomine [Bentyl] 20 mg PO TID PRN #14 tab 04/22/21 [Rx] Past Medical History HEENT History: Reports: None Other HEENT History: Yellow sclera Cardiovascular History: Reports: None Respiratory History: Reports: Other (See Below) Other Respiratory History: Pluerisy Gastrointestinal History: Reports: Cirrhosis, Other (See Below) Other Gastrointestinal History: heartburn Genitourinary History: Reports: Other (See Below) Other Genitourinary History: yeast infection during [employer] History: Reports: Musculoskeletal History: Reports: Back Pain, Chronic Other Musculoskeletal History: hx herniated disc in lower back Neurological History: Reports: None Psychiatric History: Reports: Anxiety Endocrine/Metabolic History: Reports: None Insulin Pump Model and Manager Order: None Hematologic History: Reports: None Immunologic History: Reports: None Oncologic (Cancer) History: Reports: Cervix Dermatologic History: Reports: None - Infectious Disease History Infectious Disease History: Reports: Chicken Pox, Influenza, Novel Coronavirus - Past Surgical History Head Surgeries/Procedures: Reports: None HEENT Surgical History: Reports: Oral Surgery Other HEENT Surgeries/Procedures: teeth removed at 26 years of age wears dentures Respiratory Surgical History: Reports: None GI Surgical History: Reports: Other (See Below) Other GI Surgeries/Procedures: Weekly paracentesis in [place] Female Surgical History: Reports: None Musculoskeletal Surgical History: Reports: None Oncologic Surgical History: Reports: Other (See Below) Other Oncologic Surgeries/Procedures: LEEP Social & Family History - Family History Family Medical History: No Pertinent Family History HEENT: Reports: Cataract, Glaucoma, Impaired Vision Cardiac: Reports: CAD, High Cholesterol, Hypertension GI: Reports: Cholelithiasis, Hepatitis OBGYN: Reports: Endometriosis Musculoskeletal: Reports: Arthritis, Back pain, Chronic, Neck Pain, Chronic, Osteoarthritis, RA Neurological: Reports: Alzheimers Disease, Dementia, Parkinson's Psychiatric: Reports: ADD, ADHD, Anxiety, Depression, Emotional Problems, Learning Disability, Mood Swings, Panic Attack Endocrine/Metabolic: Reports: Diabetes, type II, Hyperthyroidism Oncologic: Reports: Leukemia - Tobacco Use Tobacco Use Status *Q: Never Tobacco User - Caffeine Use Caffeine Use: Reports: None - Recreational Drug Use Recreational Drug Use: No ED ROS GENERAL - Review of Systems Review Of Systems: Comprehensive ROS is negative, except as noted in HPI. ED EXAM, GENERAL - Physical Exam Exam: See Below (See dictation) Course - Vital Signs Last Recorded V/S: Last Vital Signs Temp 97.4 F 04/26/21 16:25 Pulse 93 04/26/21 18:00 Resp 18 04/26/21 16:25 BP 108/68 04/26/21 18:00 Pulse Ox 100 04/26/21 18:00 - Orders/Labs/Meds Labs: Laboratory Tests 04/26/21 04/26/21 04/26/21 Range/Units 16:43 16:43 17:22 WBC 5.02 (4.0-11.0) K/uL RBC 3.79 L (4.30-5.90) M/uL Hgb 11.2 L (12.0-16.0) g/dL Hct 34.3 L (36.0-46.0) % MCV 90.5 (80.0-98.0) fL MCH 29.6 (27.0-32.0) pg MCHC 32.7 (31.0-37.0) g/dL RDW Std Deviation 48.4 (28.0-62.0) fl RDW Coeff of Blue 15 (11.0-15.0) % Plt Count 208 (150-400) K/uL MPV 10.50 (7.40-12.00) fL Neut % (Auto) 63.7 (48.0-80.0) % Lymph % (Auto) 25.5 (16.0-40.0) % [place] % (Auto) 7.8 (0.0-15.0) % Eos % (Auto) 2.6 (0.0-7.0) % Baso % (Auto) 0.4 (0.0-1.5) % Neut # (Auto) 3.2 (1.4-5.7) K/uL Lymph # (Auto) 1.3 (0.6-2.4) K/uL [place] # (Auto) 0.4 (0.0-0.8) K/uL Eos # (Auto) 0.1 (0.0-0.7) K/uL Baso # (Auto) 0.0 (0.0-0.1) K/uL Sodium (136-145) mmol/L Potassium (3.5-5.1) mmol/L Chloride (98-107) mmol/L Carbon Dioxide (21.0-32.0) mmol/L BUN (7.0-18.0) mg/dL Creatinine (0.6-1.0) mg/dL Est Cr Clr Drug Dosing mL/min Estimated GFR (MDRD) ml/min Glucose (74-106) mg/dL Calcium (8.5-10.1) mg/dL Total Bilirubin (0.2-1.0) mg/dL AST (15-37) IU/L ALT (14-63) IU/L Alkaline Phosphatase (46-116) U/L Total Protein (6.4-8.2) g/dL Albumin (3.4-5.0) g/dL Globulin (2.6-4.0) g/dL Albumin/Globulin Ratio (0.9-1.6) Lipase (73-393) U/L Urine Color YELLOW Urine Appearance CLEAR Urine pH 6.0 (5.0-8.0) Ur Specific [place] <= 1.005 (1.001-1.035) Urine Protein NEGATIVE (NEGATIVE) mg/dL Urine Glucose (UA) NEGATIVE (NEGATIVE) mg/dL Urine Ketones NEGATIVE (NEGATIVE) mg/dL Urine Occult Blood MODERATE H (NEGATIVE) Urine Nitrite NEGATIVE (NEGATIVE) Urine Bilirubin NEGATIVE (NEGATIVE) Urine Urobilinogen 0.2 (<2.0) EU/dL Ur Leukocyte Esterase NEGATIVE (NEGATIVE) Urine RBC 1-3 (0-2/HPF) Urine WBC 0-1 (0-5/HPF) Ur Epithelial Cells FEW (NONE-FEW) Urine Bacteria FEW (NEGATIVE) Urine HCG, Qual NEGATIVE (NEGATIVE) 04/26/21 Range/Units 17:22 WBC (4.0-11.0) K/uL RBC (4.30-5.90) M/uL Hgb (12.0-16.0) g/dL Hct (36.0-46.0) % MCV (80.0-98.0) fL MCH (27.0-32.0) pg MCHC (31.0-37.0) g/dL RDW Std Deviation (28.0-62.0) fl RDW Coeff of Blue (11.0-15.0) % Plt Count (150-400) K/uL MPV (7.40-12.00) fL Neut % (Auto) (48.0-80.0) % Lymph % (Auto) (16.0-40.0) % [place] % (Auto) (0.0-15.0) % Eos % (Auto) (0.0-7.0) % Baso % (Auto) (0.0-1.5) % Neut # (Auto) (1.4-5.7) K/uL Lymph # (Auto) (0.6-2.4) K/uL [place] # (Auto) (0.0-0.8) K/uL Eos # (Auto) (0.0-0.7) K/uL Baso # (Auto) (0.0-0.1) K/uL Sodium 140 (136-145) mmol/L Potassium 3.7 (3.5-5.1) mmol/L Chloride 105 (98-107) mmol/L Carbon Dioxide 27.4 (21.0-32.0) mmol/L BUN 7 (7.0-18.0) mg/dL Creatinine 0.7 (0.6-1.0) mg/dL Est Cr Clr Drug Dosing 87.87 mL/min Estimated GFR (MDRD) > 60.0 ml/min Glucose 83 (74-106) mg/dL Calcium 8.6 (8.5-10.1) mg/dL Total Bilirubin 0.4 (0.2-1.0) mg/dL AST 14 L (15-37) IU/L ALT 17 (14-63) IU/L Alkaline Phosphatase 88 (46-116) U/L Total Protein 7.1 (6.4-8.2) g/dL Albumin 3.5 (3.4-5.0) g/dL Globulin 3.6 (2.6-4.0) g/dL Albumin/Globulin Ratio 1.0 (0.9-1.6) Lipase 214 (73-393) U/L Urine Color Urine Appearance Urine pH (5.0-8.0) Ur Specific [place] (1.001-1.035) Urine Protein (NEGATIVE) mg/dL Urine Glucose (UA) (NEGATIVE) mg/dL Urine Ketones (NEGATIVE) mg/dL Urine Occult Blood (NEGATIVE) Urine Nitrite (NEGATIVE) Urine Bilirubin (NEGATIVE) Urine Urobilinogen (<2.0) EU/dL Ur Leukocyte Esterase (NEGATIVE) Urine RBC (0-2/HPF) Urine WBC (0-5/HPF) Ur Epithelial Cells (NONE-FEW) Urine Bacteria (NEGATIVE) Urine HCG, Qual (NEGATIVE) Meds: Medications Discontinued Medications Generic Name Dose Route Start Last Admin Trade Name Freq PRN Reason Stop Dose Admin Dicyclomine HCl 10 mg 04/26/21 16:44 04/26/21 18:05 Dicyclomine 10 Mg Cap PO 04/26/21 16:45 10 mg ONETIME ONE Administration Ketorolac Tromethamine 60 mg 04/26/21 16:44 04/26/21 18:05 Ketorolac 60 Mg/2 Ml Sdv IM 04/26/21 16:45 60 mg ONETIME ONE Administration Departure - Departure Time of Disposition: 17:58 Disposition: Home, Self-Care 01 Clinical Impression: Abdominal pain Qualifiers: Abdominal location: right upper quadrant Qualified Code(s): R10.11 - Right upper quadrant pain - Discharge Information Instructions: Abdominal Pain, Adult Referrals: Carlin Mansfield MD [Primary Care Provider] - Forms: ED Department Discharge Additional Instructions: The following information is given to patients seen in the emergency department who are being discharged to home. This information is to outline your options for follow-up care. We provide all patients seen in our emergency department with a follow-up referral. The need for follow-up, as well as the timing and circumstances, are variable depending upon the specifics of your emergency department visit. If you don't have a primary care physician on staff, we will provide you with a referral. We always advise you to contact your personal physician following an emergency department visit to inform them of the circumstance of the visit and for follow-up with them and/or the need for any referrals to a consulting specialist. The emergency department will also refer you to a specialist when appropriate. This referral assures that you have the opportunity for follow-up care with a specialist. All of these measure are taken in an effort to provide you with optimal care, which includes your follow-up. Under all circumstances we always encourage you to contact your private physician who remains a resource for coordinating your care. When calling for follow-up care, please make the office aware that this follow-up is from your recent emergency room visit. If for any reason you are refused follow-up, please contact the [facility] Emergency Department at and asked to speak to the emergency department charge nurse. [facility] [address] [place] [address] [place] [address] 1. You can take ibuprofen as directed for pain and discomfort. 2. Follow-up with your primary care provider as discussed. Return to the ED as needed and as discussed. Sepsis Event Note (ED) - Evaluation Sepsis Screening Result: No Definite Risk - Focused Exam Vital Signs: Vital Signs Temp Pulse Resp BP Pulse Ox 04/26/21 18:00 93 108/68 100 04/26/21 16:25 97.4 F 92 18 108/71 98
[2021-04-26 17:49] LABS: BLOOD UREA NITROGEN,BUN 7 mg/dL (7.0-18.0); CARBON DIOXIDE,CO2 27.4 mmol/L (21.0-32.0); CHLORIDE,CL 105 mmol/L (98-107); GLUCOSE RANDOM 83 mg/dL (74-106); LIPASE 214 U/L (73-393); POTASSIUM,K 3.7 mmol/L (3.5-5.1); SODIUM,NA 140 mmol/L (136-145)
== END 2021-04-26 18:17 | disposition home or self-care (01) ==
LOC: MW.ED 16:03
DX: R10.11 Right upper quadrant pain (principal); Z79.899 Other long term (current) drug therapy
CPT/HCPCS: 36415; 80053; 81001; 81025; 83690; 85025; 96372; 99284; A9270; J1885; 99283

== ENCOUNTER 2021-05-26 17:50 | Emergency (ER) | payer BC ==
[2021-05-26] MEDS ORDERED: Sodium Chloride 0.9% 1,000 ML IV ONE (18:21)
[2021-05-26] MEDS ORDERED: Ondansetron 4 MG/2 ML SDV IVPUSH ONE (18:21)
--- NOTE | 2021-05-26 18:38 | EDM.PDOC ---
<Zachery Oliveros - Last Filed: 05/26/21 19:53> ED HPI GENERAL MEDICAL PROBLEM - General Chief Complaint: General Stated Complaint: PAIN, CIRRHOSIS Time Seen by Provider: 05/26/21 18:07 Source of Information: Reports: Patient - History of Present Illness INITIAL COMMENTS - FREE TEXT/NARRATIVE: Patient presents complaining of acute on chronic abdominal pain for 1 day in duration. Several episodes of vomiting. Patient states she has lactulose and still having bowel movements. Patient states that she has temperature elevations into the 98 Fahrenheit range. Patient denies any dysuria or vaginal bleeding or discharge. Moderate abdominal pain without exacerbating or relieving factors. abdominal Pain Score (Numeric/FACES): 7 - Related Data Allergies Allergy/AdvReac Type Severity Reaction Status Date / Time No Known Allergies Allergy Verified 05/26/21 18:18 Home Meds: Home Meds Furosemide [Lasix] 20 mg PO DAILY tablet 11/17/20 [Rx] Lactulose 10 gm PO BID PRN 10 Days #1 bottle 11/17/20 [Rx] LORazepam [Ativan] 0.5 mg PO BID PRN 12/10/20 [History] Spironolactone [Aldactone] 50 mg PO DAILY 12/10/20 [History] Omeprazole Magnesium [Prilosec Otc] 20 mg PO BID PRN 01/05/21 [History] Ondansetron [Zofran ODT] 4 mg PO Q6H PRN #12 tab.dis 02/09/21 [Rx] Ondansetron [Zofran ODT] 4 mg PO Q6H PRN #12 tab.dis 02/22/21 [Rx] Folic Acid 1 tab PO DAILY 03/18/21 [History] Dicyclomine [Bentyl] 20 mg PO TID #3 tab 04/22/21 [Rx] Dicyclomine [Bentyl] 20 mg PO TID PRN #14 tab 04/22/21 [Rx] Past Medical History HEENT History: Reports: None Other HEENT History: Yellow sclera Cardiovascular History: Reports: None Respiratory History: Reports: Other (See Below) Other Respiratory History: Pluerisy Gastrointestinal History: Reports: Cirrhosis, Other (See Below) Other Gastrointestinal History: heartburn Genitourinary History: Reports: Other (See Below) Other Genitourinary History: yeast infection during [employer] History: Reports: Musculoskeletal History: Reports: Back Pain, Chronic Other Musculoskeletal History: hx herniated disc in lower back Neurological History: Reports: None Psychiatric History: Reports: Anxiety Endocrine/Metabolic History: Reports: None Insulin Pump Model and Freight Rate Clerk: None Hematologic History: Reports: None Immunologic History: Reports: None Oncologic (Cancer) History: Reports: Cervix Dermatologic History: Reports: None - Infectious Disease History Infectious Disease History: Reports: Chicken Pox, Influenza, Novel Coronavirus - Past Surgical History Head Surgeries/Procedures: Reports: None HEENT Surgical History: Reports: Oral Surgery Other HEENT Surgeries/Procedures: teeth removed at 26 years of age wears dentures Respiratory Surgical History: Reports: None GI Surgical History: Reports: Other (See Below) Other GI Surgeries/Procedures: Weekly paracentesis in [place]-[facility]iology Dept Female Surgical History: Reports: None Musculoskeletal Surgical History: Reports: None Oncologic Surgical History: Reports: Other (See Below) Other Oncologic Surgeries/Procedures: LEEP Social & Family History - Family History Family Medical History: No Pertinent Family History HEENT: Reports: Cataract, Glaucoma, Impaired Vision Cardiac: Reports: CAD, High Cholesterol, Hypertension GI: Reports: Cholelithiasis, Hepatitis OBGYN: Reports: Endometriosis Musculoskeletal: Reports: Arthritis, Back pain, Chronic, Neck Pain, Chronic, Osteoarthritis, RA Neurological: Reports: Alzheimers Disease, Dementia, Parkinson's Psychiatric: Reports: ADD, ADHD, Anxiety, Depression, Emotional Problems, Learning Disability, Mood Swings, Panic Attack Endocrine/Metabolic: Reports: Diabetes, type II, Hyperthyroidism Oncologic: Reports: Leukemia - Tobacco Use Tobacco Use Status *Q: Never Tobacco User - Caffeine Use Caffeine Use: Reports: None - Recreational Drug Use Recreational Drug Use: No ED ROS GENERAL - Review of Systems Review Of Systems: See Below Constitutional: Reports: Chills Respiratory: Denies: Shortness of Breath Cardiovascular: Reports: Other (Patient complaining of chest pain today. But the focus is her abdominal discomfort) GI/Abdominal: Reports: Abdominal Pain, Vomiting. Denies: Diarrhea : Denies: Dysuria, Frequency Musculoskeletal: Reports: Back Pain Skin: Denies: Rash Neurological: Reports: Headache Hematologic/Lymphatic: Denies: Easy Bleeding ED EXAM, GENERAL - Physical Exam Exam: See Below Free Text/Narrative:: CONSTITUTIONAL: well appearing in no acute distress SKIN: Warm, dry, and intact without rash HENT: Normocephalic, atraumatic, PULMONARY: clear to ausculation bilaterally. No rales, rhonchi, wheezing CARDIOVASCULAR: regular rate, No murmur, rubs, or gallops GASTROINTESTINAL: Abdomen soft, nondistended. Very mild diffuse tenderness. NEUROLOGIC: normal speech, II-XII intact. light touch/5/5 power equal and symmetric in upper and lower extremities without deficit MUSCULOSKELETAL: no gross deformities, atraumatic PSYCHIATRIC: normal mood and affect beside ultrasound with out evidence of ascitic fluid or thickening of the gallbladder wall or pericholecystic fluid #1 Interpretation EKG Date: 05/26/21 Time: 18:37 EKG Interpretation Comments: EKG: NSR, nonspecific ST/T changes, Rate - 90. Changes compared to last ekg Course - Vital Signs Text/Narrative:: Differential Diagnosis: Pancreatitis, acute cholecystitis, SBP, peptic ulcer disease, ACS, medication seeking, other Presents to the emergency department with abdominal pain. Patient has a history of chronic abdominal pain. This time the patient's lipase is elevated above his baseline. Imaging is ordered to rule out acute cholecystitis as a cause of this patient's mild lipase elevations. Otherwise she is well appearing. She denies drinking any alcohol currently. Patient also has a low potassium. Potassium was given here in the emergency department and patient will be encouraged to follow-up to have this rechecked in the next couple of days. I will give additional potassium but the patient is taking a potassium sparing diuretic and I do not want to overshoot. BAILEY Pablo 8pm Departure - Departure Disposition: Home, Self-Care 01 Clinical Impression: Cholelithiasis Qualifiers: Cholelithiasis location: gallbladder Cholecystitis presence: without cholecystitis Biliary obstruction: without biliary obstruction Qualified Code(s): K80.20 - Calculus of gallbladder without cholecystitis without obstruction - Discharge Information Instructions: Cholelithiasis Referrals: Carlin Mansfield MD [Primary Care Provider] - Forms: ED Department Discharge Additional Instructions: You have gallstones. You will need to have your gallbladder removed. Please follow up with general surgery. The following information is given to patients seen in the emergency department who are being discharged to home. This information is to outline your options for follow-up care. We provide all patients seen in our emergency department with a follow-up referral. The need for follow-up, as well as the timing and circumstances, are variable depending upon the specifics of your emergency department visit. If you don't have a primary care physician on staff, we will provide you with a referral. We always advise you to contact your personal physician following an emergency department visit to inform them of the circumstance of the visit and for follow-up with them and/or the need for any referrals to a consulting specialist. The emergency department will also refer you to a specialist when appropriate. This referral assures that you have the opportunity for follow-up care with a specialist. All of these measure are taken in an effort to provide you with optimal care, which includes your follow-up. Under all circumstances we always encourage you to contact your private physician who remains a resource for coordinating your care. When calling for f ollow-up care, please make the office aware that this follow-up is from your recent emergency room visit. If for any reason you are refused follow-up, please contact the [facility] Emergency Department at and asked to speak to the emergency department charge nurse. Please follow up with your primary care physician. If you do not have a primary care physician, see below: [facility] [address] [place] [id number] [facility] [address] [place] [id number] [facility] [address] [place] [id number] Sepsis Event Note (ED) - Evaluation Sepsis Screening Result: No Definite Risk <Randy Pablo - Last Filed: 05/26/21 21:07> Course - Vital Signs Last Recorded V/S: Last Vital Signs Temp 97.6 F 05/26/21 18:15 Pulse 102 H 05/26/21 18:15 Resp 16 05/26/21 18:15 BP 106/71 05/26/21 18:15 Pulse Ox 98 05/26/21 18:15 - Orders/Labs/Meds Orders: Active Orders 24 hr Category Date Time Status EKG Documentation Completion [RC] STAT Care 05/26/21 18:37 Active Labs: Laboratory Tests 05/26/21 05/26/21 05/26/21 Range/Units 18:03 18:03 18:36 WBC 4.09 (4.0-11.0) K/uL RBC 4.11 L (4.30-5.90) M/uL Hgb 12.5 (12.0-16.0) g/dL Hct 36.3 (36.0-46.0) % MCV 88.3 (80.0-98.0) fL MCH 30.4 (27.0-32.0) pg MCHC 34.4 (31.0-37.0) g/dL RDW Std Deviation 47.9 (28.0-62.0) fl RDW Coeff of Blue 15 (11.0-15.0) % Plt Count 220 (150-400) K/uL MPV 11.60 (7.40-12.00) fL Neut % (Auto) 59.2 (48.0-80.0) % Lymph % (Auto) 30.3 (16.0-40.0) % [place] % (Auto) 8.3 (0.0-15.0) % Eos % (Auto) 2.0 (0.0-7.0) % Baso % (Auto) 0.2 (0.0-1.5) % Neut # (Auto) 2.4 (1.4-5.7) K/uL Lymph # (Auto) 1.2 (0.6-2.4) K/uL [place] # (Auto) 0.3 (0.0-0.8) K/uL Eos # (Auto) 0.1 (0.0-0.7) K/uL Baso # (Auto) 0.0 (0.0-0.1) K/uL Nucleated RBC % 0.0 /100WBC Nucleated RBCs # 0 K/uL INR Sodium (136-145) mmol/L Potassium (3.5-5.1) mmol/L Chloride (98-107) mmol/L Carbon Dioxide (21.0-32.0) mmol/L BUN (7.0-18.0) mg/dL Creatinine (0.6-1.0) mg/dL Est Cr Clr Drug Dosing mL/min Estimated GFR (MDRD) ml/min Glucose (74-106) mg/dL Calcium (8.5-10.1) mg/dL Total Bilirubin (0.2-1.0) mg/dL AST (15-37) IU/L ALT (14-63) IU/L Alkaline Phosphatase (46-116) U/L Ammonia (19-54) ug/dL Troponin I (0.000-0.056) ng/mL Total Protein (6.4-8.2) g/dL Albumin (3.4-5.0) g/dL Globulin (2.6-4.0) g/dL Albumin/Globulin Ratio (0.9-1.6) Lipase (73-393) U/L Urine Color YELLOW Urine Appearance CLEAR Urine pH 5.5 (5.0-8.0) Ur Specific [place] <= 1.005 (1.001-1.035) Urine Protein NEGATIVE (NEGATIVE) mg/dL Urine Glucose (UA) NEGATIVE (NEGATIVE) mg/dL Urine Ketones NEGATIVE (NEGATIVE) mg/dL Urine Occult Blood MODERATE H (NEGATIVE) Urine Nitrite NEGATIVE (NEGATIVE) Urine Bilirubin NEGATIVE (NEGATIVE) Urine Urobilinogen 0.2 (<2.0) EU/dL Ur Leukocyte Esterase NEGATIVE (NEGATIVE) Urine RBC 1-3 (0-2/HPF) Urine WBC 0-2 (0-5/HPF) Ur Epithelial Cells FEW (NONE-FEW) Urine Bacteria FEW (NEGATIVE) Urine HCG, Qual NEGATIVE (NEGATIVE) 05/26/21 05/26/21 05/26/21 Range/Units 18:36 18:36 18:36 WBC (4.0-11.0) K/uL RBC (4.30-5.90) M/uL Hgb (12.0-16.0) g/dL Hct (36.0-46.0) % MCV (80.0-98.0) fL MCH (27.0-32.0) pg MCHC (31.0-37.0) g/dL RDW Std Deviation (28.0-62.0) fl RDW Coeff of Blue (11.0-15.0) % Plt Count (150-400) K/uL MPV (7.40-12.00) fL Neut % (Auto) (48.0-80.0) % Lymph % (Auto) (16.0-40.0) % [place] % (Auto) (0.0-15.0) % Eos % (Auto) (0.0-7.0) % Baso % (Auto) (0.0-1.5) % Neut # (Auto) (1.4-5.7) K/uL Lymph # (Auto) (0.6-2.4) K/uL [place] # (Auto) (0.0-0.8) K/uL Eos # (Auto) (0.0-0.7) K/uL Baso # (Auto) (0.0-0.1) K/uL Nucleated RBC % /100WBC Nucleated RBCs # K/uL INR 1.04 Sodium 142 (136-145) mmol/L Potassium 2.8 L (3.5-5.1) mmol/L Chloride 106 (98-107) mmol/L Carbon Dioxide 27.0 (21.0-32.0) mmol/L BUN 5 L (7.0-18.0) mg/dL Creatinine 0.9 (0.6-1.0) mg/dL Est Cr Clr Drug Dosing 68.07 mL/min Estimated GFR (MDRD) > 60.0 ml/min Glucose 93 (74-106) mg/dL Calcium 8.7 (8.5-10.1) mg/dL Total Bilirubin 0.3 (0.2-1.0) mg/dL AST 18 (15-37) IU/L ALT 20 (14-63) IU/L Alkaline Phosphatase 85 (46-116) U/L Ammonia 37 (19-54) ug/dL Troponin I < 0.050 (0.000-0.056) ng/mL Total Protein 7.0 (6.4-8.2) g/dL Albumin 3.6 (3.4-5.0) g/dL Globulin 3.4 (2.6-4.0) g/dL Albumin/Globulin Ratio 1.1 (0.9-1.6) Lipase 448 H (73-393) U/L Urine Color Urine Appearance Urine pH (5.0-8.0) Ur Specific [place] (1.001-1.035) Urine Protein (NEGATIVE) mg/dL Urine Glucose (UA) (NEGATIVE) mg/dL Urine Ketones (NEGATIVE) mg/dL Urine Occult Blood (NEGATIVE) Urine Nitrite (NEGATIVE) Urine Bilirubin (NEGATIVE) Urine Urobilinogen (<2.0) EU/dL Ur Leukocyte Esterase (NEGATIVE) Urine RBC (0-2/HPF) Urine WBC (0-5/HPF) Ur Epithelial Cells (NONE-FEW) Urine Bacteria (NEGATIVE) Urine HCG, Qual (NEGATIVE) Meds: Medications Discontinued Medications Generic Name Dose Route Start Last Admin Trade Name Tanvir PRN Reason Stop Dose Admin Sodium Chloride 1,000 mls @ 999 mls/hr 05/26/21 18:21 05/26/21 18:46 Normal Saline IV 05/26/21 19:21 999 mls/hr .BOLUS ONE Administration Iopamidol 100 ml 05/26/21 20:09 05/26/21 20:44 Iopamidol 755 Mg/Ml 100 Ml Bottle IVPUSH 05/26/21 20:10 100 ml ONETIME ONE Administration Morphine Sulfate 4 mg 05/26/21 19:55 05/26/21 20:23 Morphine 4 Mg/Ml Syringe IVPUSH 05/26/21 19:56 4 mg ONETIME ONE Administration Ondansetron HCl 4 mg 05/26/21 18:21 05/26/21 18:46 Ondansetron 4 Mg/2 Ml Sdv IVPUSH 05/26/21 18:22 4 mg ONETIME ONE Administration Potassium Chloride 40 meq 05/26/21 19:52 05/26/21 20:23 Potassium Chloride 20 Meq Tab.Er PO 05/26/21 19:53 40 meq NOW STA Administration - Re-Assessments/Exams Free Text/Narrative Re-Assessment/Exam: 05/26/21 20:00 Patient care transitioned from day-team physician pending CT imaging results. 05/26/21 21:03 CT scan shows cholelithiasis; low clinical suspicion of cholecystitis given normal labs and unremarkable abdominal exam. Patient has known gallbladder disease with surgery planned for May of this year. Will d/c with instructions to f/u with general surgery. Departure - Departure Time of Disposition: 21:04 Condition: Good Sepsis Event Note (ED) - Focused Exam Vital Signs: Vital Signs Temp Pulse Resp BP Pulse Ox 05/26/21 18:15 97.6 F 102 H 16 106/71 98
[2021-05-26 19:20] LABS: BLOOD UREA NITROGEN,BUN 5 mg/dL (7.0-18.0); CHLORIDE,CL 106 mmol/L (98-107); GLUCOSE RANDOM 93 mg/dL (74-106); LIPASE 448 U/L (73-393); POTASSIUM,K 2.8 mmol/L (3.5-5.1); SODIUM,NA 142 mmol/L (136-145)
[2021-05-26] MEDS ORDERED: Potassium Chloride 20 MEQ Tab.ER PO STA (19:52)
[2021-05-26] MEDS ORDERED: Morphine 4 MG/ML Syringe IVPUSH ONE (19:55)
[2021-05-26] MEDS ORDERED: Iopamidol 755 Mg/ML 100 ML Bottle IVPUSH ONE (20:09)
--- NOTE | 2021-05-26 20:56 | CT ---
INDICATION: Abdominal pain. COMPARISON: CT abdomen and pelvis March 18, 2021. TECHNIQUE: CT abdomen and pelvis with intravenous contrast; coronal and sagittal reformats. FINDINGS: No abnormal intra pulmonary nodular densities through the lung bases. No evidence of pleural effusion. Normal size cardiac silhouette without any evidence of pericardial effusion. No focal hepatic or splenic pathology. No pancreatic pathology. Cholelithiasis. Minimal thickening of the gallbladder wall without any obvious pericholecystic fluid collections. No adrenal pathology. No kidney stones or obstructive uropathy. No retroperitoneal lymphadenopathy. Normal appendix. Minimal diffuse thickening of the wall of the rectum and the sigmoid colon; rule out nonspecific colitis. No pneumoperitoneum or intestinal obstruction. The splenic vein, superior mesenteric vein and the portal vein are unremarkable. Impression: 1. Cholelithiasis with Minimal thickening of the gallbladder wall without any pericholecystic fluid collections; if acute cholecystitis is a clinical concern, suggest obtaining ultrasound examination of the gallbladder for further assessment. 2. Normal appendix. 3. No kidney stones or obstructive uropathy. 4. Minimal thickening of the wall of the rectum and sigmoid colon; nonspecific colitis. Please note that all CT scans at this facility use dose modulation, iterative reconstruction, and/or weight-based dosing when appropriate to reduce radiation dose to as low as reasonably achievable. Dictated by Swathi Reveles MD @ 05/26/2021 8:56:[address] Swathi Reveles @ May 26 2021 8:56PM
== END 2021-05-26 21:25 | disposition home or self-care (01) ==
LOC: MW.ED 17:50
DX: K80.20 Calculus of gallbladder without cholecystitis without obstruction (principal); Z79.899 Other long term (current) drug therapy
CPT/HCPCS: 36415; 74177; 80053; 81001; 81025; 82140; 83690; 84484; 85025; 85610; 93005; 96374; 96375; 99284; A9270; J2270; J2405; J7030; Q9967

== ENCOUNTER 2021-05-31 14:59 | Emergency (ER) | payer BC ==
--- NOTE | 2021-05-31 15:48 | EDM.PDOC ---
ED HPI GENERAL MEDICAL PROBLEM - General Chief Complaint: Abdominal Pain Stated Complaint: GALLSTONES Time Seen by Provider: 05/31/21 15:03 Source of Information: Reports: Patient History Limitations: Reports: No Limitations - History of Present Illness INITIAL COMMENTS - FREE TEXT/NARRATIVE: 35-year-old woman with a past medical history of cirrhosis secondary to alcohol use presents with abdominal pain. She notes chronic abdominal pain but worsening today. I saw the patient on 727 and she was noted to have a high lipase but otherwise labs are at baseline. Patient was sent home with a prescription for 15 mg oxycodone. She states that she has been taking this medication as needed and she has not run out of the medicine but today at work the pain became unbearable. She notes that she has been on an all liquid diet secondary to the elevated lipase during last time visit but does not seem to be helping. Patient is concerned that her pancreatitis is worsening. Abdominal Pain Pain Score (Numeric/FACES): 10 - Related Data Allergies Allergy/AdvReac Type Severity Reaction Status Date / Time codeine Allergy Nausea and Verified 05/31/21 15:52 Vomiting Home Meds: Home Meds Furosemide [Lasix] 20 mg PO DAILY tablet 11/17/20 [Rx] Lactulose 10 gm PO BID PRN 10 Days #1 bottle 11/17/20 [Rx] LORazepam [Ativan] 0.5 mg PO BID PRN 12/10/20 [History] Spironolactone [Aldactone] 50 mg PO DAILY 12/10/20 [History] Omeprazole Magnesium [Prilosec Otc] 20 mg PO BID PRN 01/05/21 [History] Ondansetron [Zofran ODT] 4 mg PO Q6H PRN #12 tab.dis 02/22/21 [Rx] Folic Acid 1 tab PO DAILY 03/18/21 [History] Dicyclomine [Bentyl] 20 mg PO TID #3 tab 04/22/21 [Rx] oxyCODONE HCl [oxyCODONE] 15 mg PO Q4H PRN #24 tablet 05/26/21 [Rx] oxyCODONE HCl [Oxycodone HCL] 10 mg PO Q6H PRN 1 Days #4 tablet 05/31/21 [Rx] Past Medical History HEENT History: Reports: None Other HEENT History: Yellow sclera Cardiovascular History: Reports: None Respiratory History: Reports: Other (See Below) Other Respiratory History: Pluerisy Gastrointestinal History: Reports: Cirrhosis, Other (See Below) Other Gastrointestinal History: heartburn Genitourinary History: Reports: Other (See Below) Other Genitourinary History: yeast infection during [employer] History: Reports: Musculoskeletal History: Reports: Back Pain, Chronic Other Musculoskeletal History: hx herniated disc in lower back Neurological History: Reports: None Psychiatric History: Reports: Anxiety Endocrine/Metabolic History: Reports: None Insulin Pump Model and [employer]: None Hematologic History: Reports: None Immunologic History: Reports: None Oncologic (Cancer) History: Reports: Cervix Dermatologic History: Reports: None - Infectious Disease History Infectious Disease History: Reports: Chicken Pox, Influenza, Novel Coronavirus - Past Surgical History Head Surgeries/Procedures: Reports: None HEENT Surgical History: Reports: Oral Surgery Other HEENT Surgeries/Procedures: teeth removed at 26 years of age wears dentures Respiratory Surgical History: Reports: None GI Surgical History: Reports: Other (See Below) Other GI Surgeries/Procedures: 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 Female Surgical History: Reports: None Musculoskeletal Surgical History: Reports: None Oncologic Surgical History: Reports: Other (See Below) Other Oncologic Surgeries/Procedures: LEEP Social & Family History - Family History Family Medical History: No Pertinent Family History HEENT: Reports: Cataract, Glaucoma, Impaired Vision Cardiac: Reports: CAD, High Cholesterol, Hypertension GI: Reports: Cholelithiasis, Hepatitis OBGYN: Reports: Endometriosis Musculoskeletal: Reports: Arthritis, Back pain, Chronic, Neck Pain, Chronic, Osteoarthritis, RA Neurological: Reports: Alzheimers Disease, Dementia, Parkinson's Psychiatric: Reports: ADD, ADHD, Anxiety, Depression, Emotional Problems, Learning Disability, Mood Swings, Panic Attack Endocrine/Metabolic: Reports: Diabetes, type II, Hyperthyroidism Oncologic: Reports: Leukemia - Caffeine Use Caffeine Use: Reports: None ED ROS GENERAL - Review of Systems Review Of Systems: Comprehensive ROS is negative, except as noted in HPI. ED EXAM, GENERAL - Physical Exam Exam: See Below Exam Limited By: No Limitations General Appearance: Alert, WD/WN, No Apparent Distress Ears: Hearing Grossly Normal Throat/Mouth: Normal Voice, No Airway Compromise Head: Atraumatic, Normocephalic Neck: Normal Inspection Respiratory/Chest: No Respiratory Distress, Lungs Clear, Normal Breath Sounds, No Accessory Muscle Use Cardiovascular: Normal Peripheral Pulses, Regular Rate, Rhythm GI/Abdominal: Soft, No Distention, Other (Diffusely tender without guarding or rebound) Extremities: Normal Inspection Neurological: Alert, Normal Cognition, Normal Gait Psychiatric: Normal Affect, Normal Mood Skin Exam: Warm, Dry, Intact, Normal Color Course - Vital Signs Last Recorded V/S: Last Vital Signs Temp 98.7 F 05/31/21 17:06 Pulse 76 05/31/21 17:06 Resp 18 05/31/21 17:06 BP 104/65 05/31/21 17:06 Pulse Ox 100 05/31/21 17:06 - Orders/Labs/Meds Orders: Active Orders 24 hr Category Date Time Status Sodium Chloride 0.9% [Saline Flush] Med 05/31/21 15:51 Active 10 ml FLUSH ASDIRECTED PRN Sodium Chloride 0.9% [Saline Flush] Med 05/31/21 15:51 Active 2.5 ml FLUSH ASDIRECTED PRN Saline Lock Insert [OM.PC] Stat Oth 05/31/21 15:51 Ordered Medication Orders Sodium Chloride (Sodium Chloride 0.9% 2.5 Ml Syringe) 2.5 ml FLUSH ASDIRECTED PRN PRN Reason: Keep Vein Open Last Admin: 05/31/21 16:25 Dose: 2.5 ml Documented by: CADEN Sodium Chloride (Sodium Chloride 0.9% 10 Ml Syringe) 10 ml FLUSH ASDIRECTED PRN PRN Reason: Keep Vein Open Last Admin: 05/31/21 16:25 Dose: 10 ml Documented by: CADEN Labs: Laboratory Tests 05/31/21 05/31/21 05/31/21 Range/Units 16:33 16:33 16:33 WBC 3.53 L (4.0-11.0) K/uL RBC 4.18 L (4.30-5.90) M/uL Hgb 12.5 (12.0-16.0) g/dL Hct 37.2 (36.0-46.0) % MCV 89.0 (80.0-98.0) fL MCH 29.9 (27.0-32.0) pg MCHC 33.6 (31.0-37.0) g/dL RDW Std Deviation 48.8 (28.0-62.0) fl RDW Coeff of Blue 15 (11.0-15.0) % Plt Count 244 (150-400) K/uL MPV 11.10 (7.40-12.00) fL Neut % (Auto) 53.7 (48.0-80.0) % Lymph % (Auto) 32.6 (16.0-40.0) % [place]val % (Auto) 9.1 (0.0-15.0) % Eos % (Auto) 4.0 (0.0-7.0) % Baso % (Auto) 0.6 (0.0-1.5) % Neut # (Auto) 1.9 (1.4-5.7) K/uL Lymph # (Auto) 1.2 (0.6-2.4) K/uL Duval # (Auto) 0.3 (0.0-0.8) K/uL Eos # (Auto) 0.1 (0.0-0.7) K/uL Baso # (Auto) 0.0 (0.0-0.1) K/uL Nucleated RBC % 0.0 /100WBC Nucleated RBCs # 0 K/uL Sodium 140 (136-145) mmol/L Potassium 4.0 (3.5-5.1) mmol/L Chloride 105 (98-107) mmol/L Carbon Dioxide 28.0 (21.0-32.0) mmol/L BUN 7 (7.0-18.0) mg/dL Creatinine 0.8 (0.6-1.0) mg/dL Est Cr Clr Drug Dosing 76.89 mL/min Estimated GFR (MDRD) > 60.0 ml/min Glucose 82 (74-106) mg/dL Lactic Acid 1.7 (0.4-2.0) mmol/L Calcium 8.9 (8.5-10.1) mg/dL Total Bilirubin 0.4 (0.2-1.0) mg/dL AST 25 (15-37) IU/L ALT 23 (14-63) IU/L Alkaline Phosphatase 88 (46-116) U/L Total Protein 7.2 (6.4-8.2) g/dL Albumin 3.7 (3.4-5.0) g/dL Globulin 3.5 (2.6-4.0) g/dL Albumin/Globulin Ratio 1.1 (0.9-1.6) Lipase 189 (73-393) U/L Meds: Medications Generic Name Dose Route Start Last Admin Trade Name Freq PRN Reason Stop Dose Admin Sodium Chloride 2.5 ml 05/31/21 15:51 05/31/21 16:25 Sodium Chloride 0.9% 2.5 Ml Syringe FLUSH 2.5 ml ASDIRECTED PRN Administration Keep Vein Open Sodium Chloride 10 ml 05/31/21 15:51 05/31/21 16:25 Sodium Chloride 0.9% 10 Ml Syringe FLUSH 10 ml ASDIRECTED PRN Administration Keep Vein Open Discontinued Medications Generic Name Dose Route Start Last Admin Trade Name Freq PRN Reason Stop Dose Admin Hydromorphone HCl 1 mg 05/31/21 15:51 05/31/21 16:22 Hydromorphone 1 Mg/Ml Syringe IVPUSH 05/31/21 15:52 1 mg ONETIME ONE Administration Hydromorphone HCl 1 mg 05/31/21 17:13 05/31/21 18:09 Hydromorphone 1 Mg/Ml Syringe IVPUSH 05/31/21 17:14 1 mg ONETIME ONE Administration Sodium Chloride 1,000 mls @ 999 mls/hr 05/31/21 15:51 05/31/21 17:10 Normal Saline IV 05/31/21 16:51 999 mls/hr .Bolus ONE Administration Ondansetron HCl 4 mg 05/31/21 15:51 05/31/21 16:18 Ondansetron 4 Mg/2 Ml Sdv IVPUSH 05/31/21 15:52 4 mg ONETIME ONE Administration - Re-Assessments/Exams Free Text/Narrative Re-Assessment/Exam: 05/31/21 15:57 I had a long discussion with patient. Will get labs to ensure that lipase is not uptrending. Will give 1 L IV fluid bolus. Patient informed that we can give 2 rounds of analgesia in the emergency department but that if she requires more or if her labs require admission that she will need admission and cannot get any more narcotic pain medication in the emergency department. 05/31/21 17:12 Patient's labs are all unremarkable. Her lipase is down trended significantly. Patient notes that her pain is somewhat improved but she is still in pain. I informed her that we could try 1 more dose of pain medication in the ER and then disposition from there. Departure - Departure Time of Disposition: 18:36 Disposition: Home, Self-Care 01 Condition: Good Clinical Impression: Abdominal pain Qualifiers: Abdominal location: right upper quadrant Qualified Code(s): R10.11 - Right upper quadrant pain - Discharge Information Prescriptions: oxyCODONE HCl [Oxycodone HCL] 10 mg PO Q6H PRN 1 Days #4 tablet PRN Reason: Pain Referrals: Carlin Mansfield MD [Primary Care Provider] - Forms: ED Department Discharge Additional Instructions: The following information is given to patients seen in the emergency department who are being discharged to home. This information is to outline your options for follow-up care. We provide all patients seen in our emergency department with a follow-up referral. The need for follow-up, as well as the timing and circumstances, are variable depending upon the specifics of your emergency department visit. If you don't have a primary care physician on staff, we will provide you with a referral. We always advise you to contact your personal physician following an emergency department visit to inform them of the circumstance of the visit and for follow-up with them and/or the need for any referrals to a consulting specialist. The emergency department will also refer you to a specialist when appropriate. This referral assures that you have the opportunity for follow-up care with a specialist. All of these measure are taken in an effort to provide you with optimal care, which includes your follow-up. Under all circumstances we always encourage you to contact your private physician who remains a resource for coordinating your care. When calling for follow-up care, please make the office aware that this follow-up is from your recent emergency room visit. If for any reason you are refused follow-up, please contact the [facility] Emergency Department at and asked to speak to the emergency department charge nurse. Please follow up with your primary care physician. If you do not have a primary care physician, see below: [facility] [address] [place] [id number] [id number] [facility] [address] [place] [id number] Sepsis Event Note (ED) - Focused Exam Vital Signs: Vital Signs Temp Pulse Resp BP Pulse Ox 05/31/21 17:06 98.7 F 76 18 104/65 100 05/31/21 15:47 97.6 F 99 17 105/68 99 - My Orders Last 24 Hours: My Active Orders 05/31/21 15:51 Sodium Chloride 0.9% [Saline Flush] 10 ml FLUSH ASDIRECTED PRN Sodium Chloride 0.9% [Saline Flush] 2.5 ml FLUSH ASDIRECTED PRN Saline Lock Insert [OM.PC] Stat - Assessment/Plan Last 24 Hours: My Active Orders 05/31/21 15:51 Sodium Chloride 0.9% [Saline Flush] 10 ml FLUSH ASDIRECTED PRN Sodium Chloride 0.9% [Saline Flush] 2.5 ml FLUSH ASDIRECTED PRN Saline Lock Insert [OM.PC] Stat
[2021-05-31] MEDS ORDERED: Ondansetron 4 MG/2 ML SDV IVPUSH ONE (15:51)
[2021-05-31] MEDS ORDERED: HYDROmorphone 1 MG/ML Syringe IVPUSH ONE ×2 (15:51→17:13)
[2021-05-31] MEDS ORDERED: Sodium Chloride 0.9% 2.5 ML Syringe FLUSH PRN (15:51)
[2021-05-31] MEDS ORDERED: Sodium Chloride 0.9% 10 ML Syringe FLUSH PRN (15:51)
[2021-05-31] MEDS ORDERED: Sodium Chloride 0.9% 1,000 ML IV ONE (15:51)
[2021-05-31 17:06] LABS: BLOOD UREA NITROGEN,BUN 7 mg/dL (7.0-18.0); CHLORIDE,CL 105 mmol/L (98-107); GLUCOSE RANDOM 82 mg/dL (74-106); LIPASE 189 U/L (73-393); SODIUM,NA 140 mmol/L (136-145)
== END 2021-05-31 19:04 | disposition home or self-care (01) ==
LOC: MW.ED 14:59
DX: R10.11 Right upper quadrant pain (principal); Z88.5 Allergy status to narcotic agent; Z86.16 Personal history of COVID-19; Z79.899 Other long term (current) drug therapy
CPT/HCPCS: 36415; 80053; 83605; 83690; 85025; 96374; 96375; 96376; 99284; J1170; J2405; J7030

== ENCOUNTER 2021-06-12 14:43 | Emergency (ER) | payer BC ==
--- NOTE | 2021-06-12 15:00 | EDM.PDOC ---
ED HPI GENERAL MEDICAL PROBLEM - General Chief Complaint: Abdominal Pain Stated Complaint: GALL STONES Time Seen by Provider: 06/12/21 14:51 Source of Information: Reports: Patient History Limitations: Reports: No Limitations - History of Present Illness INITIAL COMMENTS - FREE TEXT/NARRATIVE: HISTORY AND PHYSICAL: History of present illness: Patient is a 35-year-old female who presents to the emergency room with complaints of gallbladder pain. Patient has a past medical history of cirrhosis secondary to alcohol use. She has been seen in the emergency room for pain related to her gallbladder. Was seen on 05/26/2021 and again on 05/31/21. She states she was prescribed oxycodone and has ran out. She was informed for further medication refills she would need to be seen by her surgeon, Dr. Perez at [facility] in [place]. She has cholecystectomy scheduled for 06/22/2021. Reports she did not want to drive 2 hours to get a medication refill thus coming to the emergency room. Patient denies any fever, chills, headache, change in vision, syncope or near syncope. Denies any chest pain, back pain, shortness of breath or cough. Denies any nausea, vomiting, diarrhea, constipation or dysuria. Has not noted any blood in urine or stool. Patient has been eating and drinking appropriately. Review of systems: As per history of present illness and below otherwise all systems reviewed and negative. Past medical history: As per history of present illness and as reviewed below otherwise noncontributory. Surgical history: As per history of present illness and as reviewed below otherwise noncontributory. Social history: See social history for further information Family history: As per history of present illness and as reviewed below otherwise noncontributory. Physical exam: General: Well developed and well nourished. Alert and orientated x 3. Nontoxic in appearance and in no acute distress. Vital signs are stable and have been reviewed by me. Nursing notes were reviewed. HEENT: Atraumatic, normocephalic, pupils equal and reactive bilaterally, negative for conjunctival pallor or scleral icterus, mucous membranes moist, TMs normal bilaterally, throat clear, neck supple, nontender, trachea midline. No drooling or trismus noted. No meningeal signs. No hot potato voice noted. Lungs: Clear to auscultation bilaterally. No wheezes, rales, or rhonchi. Chest n ontender. Normal work of breathing, no accessory muscles used. Heart: S1S2, regular rate and rhythm without overt murmur, gallops, or rubs. No JVD. No peripheral edema Abdomen: Soft, nondistended, nontender. Normoactive bowel sounds. Negative for masses or costovertebral tenderness. Pelvis: Stable nontender. Genitourinary/Rectal: Deferred. Skin: Intact, warm, dry. No lesions or rashes noted. Hematologic: No petechiae or purpra. Mucosa appropriate color and normal nail bed color and refill. Extremities: Atraumatic, moves all extremities per self without difficulty or deficits, negative for cords or calf pain. Neurovascular unremarkable. Neuro: Awake, alert, oriented. Cranial nerves II through XII unremarkable. Cerebellum unremarkable. Motor and sensory unremarkable throughout. Exam nonfocal. Psychiatric: Mood and affect are appropriate. Normal thought process. Answering questions appropriately. Notes: *This patient was seen and evaluated during the 2019 SARS-CoV-2 novel coronavirus pandemic period. Community viral transmission is ongoing at time of this encounter and the emergency department is operating under pandemic response procedures. 05/26/21: CT of the abdomen and pelvis shows cholelithiasis with minimal thickening of the gallbladder wall without any pericholecystic fluid collection. I did review the [place] prescription drug monitoring program: She had 4 tabs of oxycodone filled on 05/31/21. Today's lab work is unremarkable. I see that Dr Webber has prescribe Oxycodone 5mg every 6 hours PRN. I will give her enough to last her till her surgery. I have talked with the patient about today's findings, in addition to providing specific details for plan of care. Reassessment at the time of disposition demonstrates that the patient is in no acute distress. The patient is stable for discharge, counseling was provided and we discussed in great detail signs and symptoms that would prompt them to return to the Emergency Department. Medication, follow up and supportive care measures were reviewed and discussed. Voices understanding and is agreeable to plan of care. Denies any further questions or concerns at this time. Diagnostics: CBC, CMP, UA, Lipase Therapeutics: None Prescription: Oxycodone TID PRN (#30) Impression: Encounter for pain management Encounter for medication refill Plan: 1. You were evaluated today on an emergent basis. Please take the medication as prescribed and as needed. You do have enough medication to last you until your surgery on 06/22/2021. 2. You can alternate Tylenol and ibuprofen as needed for pain and fever management. 3. We encourage you to follow up with Dr Webber in the next few days for re- evaluation and further care/management. 4. If your symptoms should worsen, new symptoms develop or any of the signs and symptoms we discussed should arise please return to the emergency room or call 911 (if needed). Definitive disposition and diagnosis as appropriate pending reevaluation and review of above. Abdomin Pain Score (Numeric/FACES): 4 - Related Data Allergies Allergy/AdvReac Type Severity Reaction Status Date / Time codeine Allergy Nausea and Verified 06/12/21 15:12 Vomiting Home Meds: Home Meds Furosemide [Lasix] 20 mg PO DAILY tablet 11/17/20 [Rx] Lactulose 10 gm PO BID PRN 10 Days #1 bottle 11/17/20 [Rx] LORazepam [Ativan] 0.5 mg PO BID PRN 12/10/20 [History] Spironolactone [Aldactone] 50 mg PO DAILY 12/10/20 [History] Omeprazole Magnesium [Prilosec Otc] 20 mg PO BID PRN 01/05/21 [History] Ondansetron [Zofran ODT] 4 mg PO Q6H PRN #12 tab.dis 02/22/21 [Rx] Folic Acid 1 tab PO DAILY 03/18/21 [History] Dicyclomine [Bentyl] 20 mg PO TID #3 tab 04/22/21 [Rx] oxyCODONE HCl [oxyCODONE] 15 mg PO Q4H PRN #24 tablet 05/26/21 [Rx] oxyCODONE HCl [Oxycodone HCL] 10 mg PO Q6H PRN 1 Days #4 tablet 05/31/21 [Rx] oxyCODONE 5 mg PO TID PRN 10 Days #30 tab 06/12/21 [Rx] Past Medical History HEENT History: Reports: None Other HEENT History: Yellow sclera Cardiovascular History: Reports: None Respiratory History: Reports: Other (See Below) Other Respiratory History: Pluerisy Gastrointestinal History: Reports: Cirrhosis, Other (See Below) Other Gastrointestinal History: heartburn Genitourinary History: Reports: Other (See Below) Other Genitourinary History: yeast infection during [employer] History: Reports: Musculoskeletal History: Reports: Back Pain, Chronic Other Musculoskeletal History: hx herniated disc in lower back Neurological History: Reports: None Psychiatric History: Reports: Anxiety Endocrine/Metabolic History: Reports: None Insulin Pump Model and Automatic Profile 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 Hematologic History: Reports: None Immunologic History: Reports: None Oncologic (Cancer) History: Reports: Cervix Dermatologic History: Reports: None - Infectious Disease History Infectious Disease History: Reports: Chicken Pox, Influenza, Novel Coronavirus - Past Surgical History Head Surgeries/Procedures: Reports: None HEENT Surgical History: Reports: Oral Surgery Other HEENT Surgeries/Procedures: teeth removed at 26 years of age wears dentu res Respiratory Surgical History: Reports: None GI Surgical History: Reports: Other (See Below) Other GI Surgeries/Procedures: Weekly paracentesis in [place]-Radiology Dept Female Surgical History: Reports: None Musculoskeletal Surgical History: Reports: None Oncologic Surgical History: Reports: Other (See Below) Other Oncologic Surgeries/Procedures: LEEP Social & Family History - Family History Family Medical History: No Pertinent Family History HEENT: Reports: Cataract, Glaucoma, Impaired Vision Cardiac: Reports: CAD, High Cholesterol, Hypertension GI: Reports: Cholelithiasis, Hepatitis OBGYN: Reports: Endometriosis Musculoskeletal: Reports: Arthritis, Back pain, Chronic, Neck Pain, Chronic, Osteoarthritis, RA Neurological: Reports: Alzheimers Disease, Dementia, Parkinson's Psychiatric: Reports: ADD, ADHD, Anxiety, Depression, Emotional Problems, Learning Disability, Mood Swings, Panic Attack Endocrine/Metabolic: Reports: Diabetes, type II, Hyperthyroidism Oncologic: Reports: Leukemia - Caffeine Use Caffeine Use: Reports: None ED ROS GENERAL - Review of Systems Review Of Systems: Comprehensive ROS is negative, except as noted in HPI. ED EXAM, GI/ABD - Physical Exam Exam: See Below (See dictation) Course - Vital Signs Last Recorded V/S: Last Vital Signs Temp 97.6 F 06/12/21 15:13 Pulse 88 06/12/21 15:13 Resp 15 06/12/21 15:13 BP 98/62 06/12/21 15:13 Pulse Ox 97 06/12/21 15:13 - Orders/Labs/Meds Orders: Active Orders 24 hr Category Date Time Status CULTURE URINE [MREF] Stat Lab 06/12/21 15:49 Received Labs: Laboratory Tests 06/12/21 06/12/21 06/12/21 Range/Units 15:47 15:47 15:49 WBC 5.10 (4.0-11.0) K/uL RBC 4.08 L (4.30-5.90) M/uL Hgb 12.4 (12.0-16.0) g/dL Hct 36.6 (36.0-46.0) % MCV 89.7 (80.0-98.0) fL MCH 30.4 (27.0-32.0) pg MCHC 33.9 (31.0-37.0) g/dL RDW Std Deviation 50.3 (28.0-62.0) fl RDW Coeff of Blue 16 H (11.0-15.0) % Plt Count 204 (150-400) K/uL MPV 11.20 (7.40-12.00) fL Neut % (Auto) 69.2 (48.0-80.0) % Lymph % (Auto) 22.7 (16.0-40.0) % [place] % (Auto) 6.3 (0.0-15.0) % Eos % (Auto) 1.0 (0.0-7.0) % Baso % (Auto) 0.8 (0.0-1.5) % Neut # (Auto) 3.5 (1.4-5.7) K/uL Lymph # (Auto) 1.2 (0.6-2.4) K/uL [place] # (Auto) 0.3 (0.0-0.8) K/uL Eos # (Auto) 0.1 (0.0-0.7) K/uL Baso # (Auto) 0.0 (0.0-0.1) K/uL Nucleated RBC % 0.0 /100WBC Nucleated RBCs # 0 K/uL Sodium 142 (136-145) mmol/L Potassium 4.3 (3.5-5.1) mmol/L Chloride 105 (98-107) mmol/L Carbon Dioxide 28.6 (21.0-32.0) mmol/L BUN 6 L (7.0-18.0) mg/dL Creatinine 0.7 (0.6-1.0) mg/dL Est Cr Clr Drug Dosing 87.51 mL/min Estimated GFR (MDRD) > 60.0 ml/min Glucose 82 (74-106) mg/dL Calcium 9.0 (8.5-10.1) mg/dL Total Bilirubin 0.4 (0.2-1.0) mg/dL AST 23 (15-37) IU/L ALT 19 (14-63) IU/L Alkaline Phosphatase 77 (46-116) U/L Total Protein 7.0 (6.4-8.2) g/dL Albumin 3.8 (3.4-5.0) g/dL Globulin 3.2 (2.6-4.0) g/dL Albumin/Globulin Ratio 1.2 (0.9-1.6) Lipase 146 (73-393) U/L Urine Color YELLOW Urine Appearance CLEAR Urine pH 7.5 (5.0-8.0) Ur Specific [place] 1.010 (1.001-1.035) Urine Protein NEGATIVE (NEGATIVE) mg/dL Urine Glucose (UA) NEGATIVE (NEGATIVE) mg/dL Urine Ketones NEGATIVE (NEGATIVE) mg/dL Urine Occult Blood NEGATIVE (NEGATIVE) Urine Nitrite NEGATIVE (NEGATIVE) Urine Bilirubin NEGATIVE (NEGATIVE) Urine Urobilinogen 0.2 (<2.0) EU/dL Ur Leukocyte Esterase SMALL H (NEGATIVE) Urine RBC 0-2 (0-2/HPF) Urine WBC 0-2 (0-5/HPF) Ur Epithelial Cells FEW (NONE-FEW) Urine Bacteria FEW (NEGATIVE) Departure - Departure Time of Disposition: 15:56 Disposition: Home, Self-Care 01 Clinical Impression: Encounter for pain management, Medication refill - Discharge Information Prescriptions: oxyCODONE 5 mg PO TID PRN 10 Days #30 tab PRN Reason: Pain Referrals: Carlin Mansfield MD [Primary Care Provider] - Forms: ED Department Discharge Additional Instructions: The following information is given to patients seen in the emergency department who are being discharged to home. This information is to outline your options for follow-up care. We provide all patients seen in our emergency department with a follow-up referral. The need for follow-up, as well as the timing and circumstances, are variable depending upon the specifics of your emergency department visit. If you don't have a primary care physician on staff, we will provide you with a referral. We always advise you to contact your personal physician following an emergency department visit to inform them of the circumstance of the visit and for follow-up with them and/or the need for any referrals to a consulting specialist. The emergency department will also refer you to a specialist when appropriate. This referral assures that you have the opportunity for follow-up care with a specialist. All of these measure are taken in an effort to provide you with optimal care, which includes your follow-up. Under all circumstances we always encourage you to contact your private physician who remains a resource for coordinating your care. When calling for follow-up care, please make the office aware that this follow-up is from your recent emergency room visit. If for any reason you are refused follow-up, please contact the [facility] Emergency Department at and asked to speak to the emergency department charge nurse. [facility] [address] [place] [id number] [address] Thank you for choosing the [facility] emergency department in [place] for your medical needs today. It was a pleasure caring for you. Today you were seen in the emergency department for pain management. 1. You were evaluated today on an emergent basis. Please take the medication as prescribed and as needed. You do have enough medication to last you until your surgery on 06/22/2021. 2. You can alternate Tylenol and ibuprofen as needed for pain and fever management. 3. We encourage you to follow up with Dr Webber in the next few days for re- evaluation and further care/management. 4. If your symptoms should worsen, new symptoms develop or any of the signs and symptoms we discussed should arise please return to the emergency room or call 911 (if needed). Sepsis Event Note (ED) - Focused Exam Vital Signs: Vital Signs Temp Pulse Resp BP Pulse Ox 06/12/21 15:13 97.6 F 88 15 98/62 97 - My Orders Last 24 Hours: My Active Orders 06/12/21 15:49 CULTURE URINE [MREF] Stat - Assessment/Plan Last 24 Hours: My Active Orders 06/12/21 15:49 CULTURE URINE [MREF] Stat
[2021-06-12 16:23] LABS: BLOOD UREA NITROGEN,BUN 6 mg/dL (7.0-18.0); CARBON DIOXIDE,CO2 28.6 mmol/L (21.0-32.0); CHLORIDE,CL 105 mmol/L (98-107); GLUCOSE RANDOM 82 mg/dL (74-106); LIPASE 146 U/L (73-393); POTASSIUM,K 4.3 mmol/L (3.5-5.1); SODIUM,NA 142 mmol/L (136-145)
== END 2021-06-12 16:55 | disposition home or self-care (01) ==
LOC: MW.ED 14:43
DX: R10.9 Unspecified abdominal pain (principal); Z76.0 Encounter for issue of repeat prescription; Z79.899 Other long term (current) drug therapy; Z88.5 Allergy status to narcotic agent
CPT/HCPCS: 36415; 80053; 81001; 83690; 85025; 87086; 99284

== ENCOUNTER 2021-06-28 10:10 | Emergency (ER) | payer BC ==
[2021-06-28] MEDS: Sodium Chloride 0.9% 1,000 ML IV ONE (11:26)
[2021-06-28] MEDS: Sodium Chloride 0.9% 2.5 ML Syringe FLUSH PRN (11:27)
[2021-06-28] MEDS: HYDROmorphone 1 MG/ML Syringe IVPUSH ONE (11:28)
[2021-06-28] MEDS: Sodium Chloride 0.9% 10 ML Syringe FLUSH PRN (11:28)
[2021-06-28] MEDS: Ketorolac 30 MG/ML SDV IVPUSH ONE (11:29)
--- NOTE | 2021-06-28 11:34 | EDM.PDOC ---
ED HPI GENERAL MEDICAL PROBLEM - General Chief Complaint: Abdominal Pain Stated Complaint: PAIN Time Seen by Provider: 06/28/21 10:37 Source of Information: Reports: Patient History Limitations: Reports: No Limitations - History of Present Illness INITIAL COMMENTS - FREE TEXT/NARRATIVE: HISTORY AND PHYSICAL: History of present illness: The patient is a 36-year-old who presents to the emergency room with generalized abdominal pain which she describes as knives and needles all over her abdomen. The patient had a cholecystectomy on 06/22/2021 and a liver biopsy. The patient states that she attempted to call her surgeon on Tuesday but no response. The patient states that she was given oxycodone 30 tablets and had to double up on those the first day. The patient states she called in sought permission to take her medication every 5-1/2 hours due to the pain. She describes as having a bubble still and being unable to get rid of it. She states she is unable to lie flat due to. The patient states that her last oxycodone was at 03 100 this morning and she also took Zofran. She denies nausea vomiting at this time. She states that she has normal bowel movements as she takes lactulose 3 times a day for her cirrhosis. Patient denies any fever, chills, headache, change in vision, syncope or near syncope. Denies any chest pain, back pain, shortness of breath or cough. Denies any constipation or dysuria. Has not noted any blood in urine or stool. Patient has been eating and drinking appropriately. Review of systems: As per history of present illness and below otherwise all systems reviewed and negative. Past medical history: As per history of present illness and as reviewed below otherwise noncontributory. Surgical history: As per history of present illness and as reviewed below otherwise noncontributory. Social history: See social history for further information Family history: As per history of present illness and as reviewed below otherwise noncontributory. Physical exam: General: Well developed and well nourished. Alert and orientated x 3. Nontoxic in appearance and in no acute distress. Vital signs are stable and have been reviewed by me. Nursing notes were reviewed. HEENT: Atraumatic, normocephalic, pupils equal and reactive bilaterally, negative for conjunctival pallor or scleral icterus, mucous membranes moist, TMs normal bilaterally, throat clear, neck supple, nontender, trachea midline. No drooling or trismus noted. No meningeal signs. No hot potato voice noted. Lungs: Clear to auscultation bilaterally. No wheezes, rales, or rhonchi. Chest nontender. Normal work of breathing, no accessory muscles used. Heart: S1S2, regular rate and rhythm without overt murmur, gallops, or rubs. No JVD. No peripheral edema Abdomen: Soft, nondistended, tender. Normoactive bowel sounds. Negative for masses or costovertebral tenderness. Skin: Intact, warm, dry. Noted healing cholecystitis puncture sites. No signs of infection. no lesions or rashes noted. Hematologic: No petechiae or purpra. Mucosa appropriate color and normal nail bed color and refill. Extremities: Atraumatic, moves all extremities per self without difficulty or deficits, negative for cords or calf pain. Neurovascular unremarkable. Neuro: Awake, alert, oriented. Cranial nerves II through XII unremarkable. Cerebellum unremarkable. Motor and sensory unremarkable throughout. Exam nonfocal. Psychiatric: Mood and affect are appropriate. Normal thought process. Answering questions appropriately. Notes: *This patient was seen and evaluated during the 2019 SARS-CoV-2 novel coronavirus pandemic period. Community viral transmission is ongoing at time of this encounter and the emergency department is operating under pandemic response procedures. As stated above the patient is a 36-year-old who presents to the emergency room for complaints of generalized abdominal pain that she has had since her cholecystectomy on 06/22/2021. The patient has a longstanding history of abdominal pain and seeking relief in the emergency department. Upon exam I am unable to touch the patient's belly adequately as she is coming off the bed and asking me not to touch her. The limited exam would appear to have a soft abdomen. Her incision site are healing without signs of infection. The patient is having normal bowel movements. She describes her pain as knives and needles all over her abdomen. I called the surgeon in my not for his advice as the patient has a long history of abdominal pain. The surgeon said the surgery report was no spillage of bile and no need to irrigate the abdomen. The liver biopsy was consistent with cirrhosis. The surgeon felt that the general public turns the corner around 3 to 5 days. And most pain associated with cholecystec brigid is a bruise, or deep dull ache. He has never heard of the knives. He suggested lab work and a CT abdomen pelvis to look for fluid collection. He stated there might be a small amount but we would be looking for a significant amount of fluid collection. The patient had initially declined getting her labs as she said she is a hard stick. I explained to the patient the advice of the surgeon in my not and she consented. Offered the patient Toradol and she stated, "that never works. I need something stronger." The patient indicated that she would be unable to lie down in the CT scan. I have ordered Toradol and 1 mg of Dilaudid IV. Patient CBC and CMP are unremarkable. The patient's abdomen pelvis CT IMPRESSION: 1. Recent cholecystectomy on 06/22/2021. Small amount of postoperative free air with residual fluid in the gallbladder fossa, which may be due to resolving postoperative changes. No drainable abscess at this time. If any clinical concern for postoperative bile leak, consider nuclear medicine study. I phoned Dr. Sawant, the surgeon at my not, back regarding the CT results and he stated that there was little concern for a infection. The patient was not exhibiting signs of an infection. The surgeon did not advise for any more narcotics to be given. I have discussed this with the patient. She voiced concern over not getting pain medication but stated that she was understanding. After the patient was discharged I was informed by the nurses the patient was holding her IV and stating that she would not leave until she got more pain medication and wanted a prescription for pain medication at home. I was not informed of this prior to the patient leaving. I was also told that the patient went out into the waiting room and yelled something to the effect that they do not help you here. I was not aware of this at the time. I have talked with the patient about today's findings, in addition to providing specific details for plan of care. Reassessment at the time of disposition demonstrates that the patient is in no acute distress. The patient is stable for discharge, counseling was provided and we discussed in great detail signs and symptoms that would prompt them to return to the Emergency Department. Medication, follow up and supportive care measures were reviewed and discussed. Voices understanding and is agreeable to plan of care. Denies any further questions or concerns at this time. Diagnostics: CBC, CMP, CT abdomen pelvis Therapeutics: Fluids, Toradol, Dilaudid Impression: Abdominal pain Plan: 1. You were evaluated today on an emergent basis. Your abdominal pain was evaluated with blood work which was normal and a CT which showed Small amount of postoperative free air with residual fluid in the gallbladder fossa, which may be due to resolving postoperative changes. I spoke with Dr. Fry who wants you to follow-up with Dr. Perez tomorrow by phone. If you get fever or chills please return to the emergency department. You can use your 2 Motrin a day for pain control but again please follow-up with your design printer balloon or your GI physician regarding your cirrhosis. 2. We encourage you to follow up with your primary care provider and/or recommended specialist in the next few days for re-evaluation and further care/management. 3. If your symptoms should worsen, new symptoms develop or any of the signs and symptoms we discussed should arise please return to the emergency room or call 911 (if needed). Definitive disposition and diagnosis as appropriate pending reevaluation and review of above. abdomen Pain Score (Numeric/FACES): 10 - Related Data Allergies Allergy/AdvReac Type Severity Reaction Status Date / Time codeine Allergy Nausea and Verified 06/28/21 10:39 Vomiting Home Meds: Home Meds Furosemide [Lasix] 20 mg PO DAILY tablet 11/17/20 [Rx] Lactulose 10 gm PO BID PRN 10 Days #1 bottle 11/17/20 [Rx] LORazepam [Ativan] 0.5 mg PO BID PRN 12/10/20 [History] Spironolactone [Aldactone] 50 mg PO DAILY 12/10/20 [History] Omeprazole Magnesium [Prilosec Otc] 20 mg PO BID PRN 01/05/21 [History] Ondansetron [Zofran ODT] 4 mg PO Q6H PRN #12 tab.dis 02/22/21 [Rx] Folic Acid 1 tab PO DAILY 03/18/21 [History] oxyCODONE HCl [oxyCODONE] 15 mg PO Q4H PRN #24 tablet 05/26/21 [Rx] Past Medical History HEENT History: Reports: None Other HEENT History: Yellow sclera Cardiovascular History: Reports: None Respiratory History: Reports: Other (See Below) Other Respiratory History: Pluerisy Gastrointestinal History: Reports: Cirrhosis, Other (See Below) Other Gastrointestinal History: heartburn Genitourinary History: Reports: Other (See Below) Other Genitourinary History: yeast infection during [employer] History: Reports: Musculoskeletal History: Reports: Back Pain, Chronic Other Musculoskeletal History: hx herniated disc in lower back Neurological History: Reports: None Psychiatric History: Reports: Anxiety Endocrine/Metabolic History: Reports: None Insulin Pump Model and Social Media Designer: None Hematologic History: Reports: None Immunologic History: Reports: None Oncologic (Cancer) History: Reports: Cervix Dermatologic History: Reports: None - Infectious Disease History Infectious Disease History: Reports: Chicken Pox, Influenza, Novel Coronavirus - Past Surgical History Head Surgeries/Procedures: Reports: None HEENT Surgical History: Reports: Oral Surgery Other HEENT Surgeries/Procedures: teeth removed at 26 years of age wears dentures Respiratory Surgical History: Reports: None GI Surgical History: Reports: Cholecystectomy, Other (See Below) Other GI Surgeries/Procedures: Weekly paracentesis in [facility], Liver Biopsy Female Surgical History: Reports: None Musculoskeletal Surgical History: Reports: None Oncologic Surgical History: Reports: Other (See Below) Other Oncologic Surgeries/Procedures: LEEP Social & Family History - Family History Family Medical History: No Pertinent Family History HEENT: Reports: Cataract, Glaucoma, Impaired Vision Cardiac: Reports: CAD, High Cholesterol, Hypertension GI: Reports: Cholelithiasis, Hepatitis OBGYN: Reports: Endometriosis Musculoskeletal: Reports: Arthritis, Back pain, Chronic, Neck Pain, Chronic, Osteoarthritis, RA Neurological: Reports: Alzheimers Disease, Dementia, Parkinson's Psychiatric: Reports: ADD, ADHD, Anxiety, Depression, Emotional Problems, Learning Disability, Mood Swings, Panic Attack Endocrine/Metabolic: Reports: Diabetes, type II, Hyperthyroidism Oncologic: Reports: Leukemia - Tobacco Use Tobacco Use Status *Q: Never Tobacco User Second Hand Smoke Exposure: No - Caffeine Use Caffeine Use: Reports: None - Recreational Drug Use Recreational Drug Use: No ED ROS GENERAL - Review of Systems Review Of Systems: Comprehensive ROS is negative, except as noted in HPI. ED EXAM, GI/ABD - Physical Exam Exam: See Below (See dictation) Course - Vital Signs Last Recorded V/S: Last Vital Signs Temp 96.9 F 06/28/21 15:10 Pulse 87 06/28/21 15:10 Resp 16 06/28/21 15:10 BP 99/67 06/28/21 15:10 Pulse Ox 100 06/28/21 15:10 - Orders/Labs/Meds Orders: Active Orders 24 hr Category Date Time Status Saline Lock Insert [OM.PC] Stat Oth 06/28/21 11:07 Ordered Labs: Laboratory Tests 06/28/21 06/28/21 Range/Units 11:30 11:30 WBC 6.29 (4.0-11.0) K/uL RBC 4.56 (4.30-5.90) M/uL Hgb 14.1 (12.0-16.0) g/dL Hct 40.0 (36.0-46.0) % MCV 87.7 (80.0-98.0) fL MCH 30.9 (27.0-32.0) pg MCHC 35.3 (31.0-37.0) g/dL RDW Std Deviation 49.6 (28.0-62.0) fl RDW Coeff of Blue 16 H (11.0-15.0) % Plt Count 293 (150-400) K/uL MPV 10.80 (7.40-12.00) fL Neut % (Auto) 63.8 (48.0-80.0) % Lymph % (Auto) 19.7 (16.0-40.0) % [place] % (Auto) 10.2 (0.0-15.0) % Eos % (Auto) 5.2 (0.0-7.0) % Baso % (Auto) 1.1 (0.0-1.5) % Neut # (Auto) 4.0 (1.4-5.7) K/uL Lymph # (Auto) 1.2 (0.6-2.4) K/uL [place] # (Auto) 0.6 (0.0-0.8) K/uL Eos # (Auto) 0.3 (0.0-0.7) K/uL Baso # (Auto) 0.1 (0.0-0.1) K/uL Nucleated RBC % 0.0 /100WBC Nucleated RBCs # 0 K/uL Sodium 138 (136-145) mmol/L Potassium 3.9 (3.5-5.1) mmol/L Chloride 99 (98-107) mmol/L Carbon Dioxide 25.8 (21.0-32.0) mmol/L BUN 7 (7.0-18.0) mg/dL Creatinine 0.8 (0.6-1.0) mg/dL Est Cr Clr Drug Dosing 76.15 mL/min Estimated GFR (MDRD) > 60.0 ml/min Glucose 90 (74-106) mg/dL Calcium 9.3 (8.5-10.1) mg/dL Total Bilirubin 0.7 (0.2-1.0) mg/dL AST 17 (15-37) IU/L ALT 18 (14-63) IU/L Alkaline Phosphatase 98 (46-116) U/L Total Protein 8.4 H (6.4-8.2) g/dL Albumin 4.1 (3.4-5.0) g/dL Globulin 4.3 H (2.6-4.0) g/dL Albumin/Globulin Ratio 1.0 (0.9-1.6) Meds: Medications Discontinued Medications Generic Name Dose Route Start Last Admin Trade Name Freq PRN Reason Stop Dose Admin Hydromorphone HCl 1 mg 06/28/21 11:13 06/28/21 11:28 Hydromorphone 1 Mg/Ml Syringe IVPUSH 06/28/21 11:14 1 mg ONETIME ONE Administration Sodium Chloride 1,000 mls @ 999 mls/hr 06/28/21 11:07 06/28/21 11:26 Normal Saline IV 06/28/21 12:07 999 mls/hr .BOLUS ONE Administration Iopamidol 60 ml 06/28/21 12:49 06/28/21 12:49 Iopamidol 755 Mg/Ml 500 Ml Multipack Bottle IVPUSH 06/28/21 12:50 60 ml ONETIME ONE Administration Ketorolac Tromethamine 30 mg 06/28/21 11:07 06/28/21 11:29 Ketorolac 30 Mg/Ml Sdv IVPUSH 06/28/21 11:08 30 mg ONETIME ONE Administration Ondansetron HCl 4 mg 06/28/21 11:49 06/28/21 11:56 Ondansetron 4 Mg/2 Ml Sdv IVPUSH 06/28/21 11:50 4 mg ONETIME ONE Administration Sodium Chloride 10 ml 06/28/21 11:07 06/28/21 11:28 Sodium Chloride 0.9% 10 Ml Syringe FLUSH 10 ml ASDIRECTED PRN Administration Keep Vein Open Sodium Chloride 2.5 ml 06/28/21 11:07 06/28/21 11:27 Sodium Chloride 0.9% 2.5 Ml Syringe FLUSH 2.5 ml ASDIRECTED PRN Administration Keep Vein Open Departure - Departure Time of Disposition: 14:41 Disposition: Home, Self-Care 01 Condition: Good Clinical Impression: Abdominal pain Qualifiers: Abdominal location: right upper quadrant Qualified Code(s): R10.11 - Right upper quadrant pain - Discharge Information *PRESCRIPTION DRUG MONITORING PROGRAM REVIEWED*: Not Applicable *COPY OF PRESCRIPTION DRUG MONITORING REPORT IN PATIENT TATE: Not Applicable Instructions: Abdominal Pain, Adult, [id number] Referrals: Carlin Mansfield MD [Primary Care Provider] - Forms: ED Department Discharge Additional Instructions: The following information is given to patients seen in the emergency department who are being discharged to home. This information is to outline your options for follow-up care. We provide all patients seen in our emergency department with a follow-up referral. The need for follow-up, as well as the timing and circumstances, are variable depending upon the specifics of your emergency department visit. If you don't have a primary care physician on staff, we will provide you with a referral. We always advise you to contact your personal physician following an emergency department visit to inform them of the circumstance of the visit and for follow-up with them and/or the need for any referrals to a consulting specialist. The emergency department will also refer you to a specialist when appropriate. This referral assures that you have the opportunity for follow-up care with a specialist. All of these measure are taken in an effort to provide you with optimal care, which includes your follow-up. Under all circumstances we always encourage you to contact your private physician who remains a resource for coordinating your care. When calling for follow-up care, please make the office aware that this follow-up is from your recent emergency room visit. If for any reason you are refused follow-up, please contact the [facility] Emergency Department at and asked to speak to the emergency department charge nurse. Meeker Demario [facility] [address] [place] [id number] [facility] [address] [place] [address] Plan: 1. You were evaluated today on an emergent basis. Your abdominal pain was evaluated with blood work which was normal and a CT which showed Small amount of postoperative free air with residual fluid in the gallbladder fossa, which may be due to resolving postoperative changes. I spoke with Dr. Fry who wants you to follow-up with Dr. Perez tomorrow by phone. If you get fever or chills please return to the emergency department. You can use your 2 Motrin a day for pain control but again please follow-up with your design printer balloon or your GI physician regarding your cirrhosis. 2. We encourage you to follow up with your primary care provider and/or recommended specialist in the next few days for re-evaluation and further care/management. 3. If your symptoms should worsen, new symptoms develop or any of the signs and symptoms we discussed should arise please return to the emergency room or call 911 (if needed). Sepsis Event Note (ED) - Focused Exam Vital Signs: Vital Signs Temp Pulse Resp BP Pulse Ox 06/28/21 15:10 96.9 F 87 16 99/67 100 06/28/21 14:19 76 103/58 L 99 06/28/21 13:49 78 101/68 98 06/28/21 13:19 75 102/60 99 06/28/21 12:49 77 105/67 100 06/28/21 11:46 97.1 F 85 16 91/52 L 93 L 06/28/21 10:36 97.3 F 108 H 18 96/54 L 94 L - My Orders Last 24 Hours: My Active Orders 06/28/21 11:07 Saline Lock Insert [OM.PC] Stat - Assessment/Plan Last 24 Hours: My Active Orders 06/28/21 11:07 Saline Lock Insert [OM.PC] Stat
[2021-06-28] MEDS: Ondansetron 4 MG/2 ML SDV IVPUSH ONE (11:56)
[2021-06-28 12:03] LABS: BLOOD UREA NITROGEN,BUN 7 mg/dL (7.0-18.0); CARBON DIOXIDE,CO2 25.8 mmol/L (21.0-32.0); CHLORIDE,CL 99 mmol/L (98-107); GLUCOSE RANDOM 90 mg/dL (74-106); POTASSIUM,K 3.9 mmol/L (3.5-5.1); SODIUM,NA 138 mmol/L (136-145)
[2021-06-28] MEDS: Iopamidol 755 MG/ML 500 ML Multipack Bottle IVPUSH ONE (12:49)
--- NOTE | 2021-06-28 13:55 | CT ---
INDICATION: Cholecystectomy 06/22/2021. Increased abdominal pain. TECHNIQUE: CT abdomen and pelvis acquired with i.v. 60 mL Isovue 370. Coronal and sagittal reformats were obtained. COMPARISON: CT study dated 05/26/2021 FINDINGS: Consultant Dietitian CT images: Nonobstructive bowel gas pattern. Cholecystectomy surgical clips are noted in the upper right abdomen. Lower chest: Unremarkable. Liver: Unremarkable. Spleen: Unremarkable. Pancreas: Unremarkable. Gallbladder and bile ducts: Gallbladder is surgically absent. Small amount of residual fluid in the gallbladder fossa. With tiny focus of free air in the anterior right upper abdomen, series 201, image 66. Punctate foci of air within the gallbladder fossa fluid, reference series 201, image 67. Bile ducts are normal in caliber. Kidneys: Unremarkable. No kidney or ureteral stones and no hydronephrosis seen. Adrenal glands: Unremarkable. GI tract: Unremarkable. The appendix is normal in appearance and size. Vascular: Portal vein branches, splenic vein, and SMV are patent. Abdominal aorta normal in caliber. Origins of the celiac artery and SMA are patent. No abnormal twisting of mesenteric vessels. Lymph nodes: Unremarkable. Miscellaneous: Small foci of extraluminal air in the upper right abdomen and within the gallbladder fossa. No peripherally enhancing postoperative abscess at this time. Pelvic Organs: Unremarkable. Bones: Unremarkable for age. IMPRESSION: 1. Recent cholecystectomy on 06/22/2021. Small amount of postoperative free air with residual fluid in the gallbladder fossa, which may be due to resolving postoperative changes. No drainable abscess at this time. If any clinical concern for postoperative bile leak, consider nuclear medicine study. Please note that all CT scans at this facility use dose modulation, iterative reconstruction, and/or weight-based dosing when appropriate to reduce radiation dose to as low as reasonably achievable. Dictated by Francisco Romo MD @ 06/28/2021 1:53:[address] Francisco Romo @ Jun 28 2021 1:53PM
== END 2021-06-28 15:11 | disposition home or self-care (01) ==
LOC: MW.ED 10:10
DX: R10.11 Right upper quadrant pain (principal); Z90.49 Acquired absence of other specified parts of digestive tract; Z88.5 Allergy status to narcotic agent; Z79.899 Other long term (current) drug therapy
CPT/HCPCS: 36415; 74177; 80053; 85025; 96374; 96375; 99284; J1170; J1885; J2405; J7030; Q9967

== ENCOUNTER 2021-07-12 12:36 | Emergency (ER) | payer BC ==
[2021-07-12] MEDS ORDERED: Sodium Chloride 0.9% 2.5 ML Syringe FLUSH PRN (14:43)
[2021-07-12] MEDS ORDERED: Sodium Chloride 0.9% 10 ML Syringe FLUSH PRN (14:43)
[2021-07-12] MEDS ORDERED: Sodium Chloride 0.9% 1,000 ML IV ONE (14:44)
--- NOTE | 2021-07-12 15:24 | EDM.PDOC ---
ED HPI GENERAL MEDICAL PROBLEM - General Chief Complaint: Abdominal Pain Stated Complaint: pain Time Seen by Provider: 07/12/21 14:33 Source of Information: Reports: Patient History Limitations: Reports: No Limitations - History of Present Illness INITIAL COMMENTS - FREE TEXT/NARRATIVE: HISTORY AND PHYSICAL: History of present illness: The patient is a 36-year-old female who presents to the emergency room with complaints of right upper quad pain and left lower quad pain. The patient states that the left lower quad pain started around 9 AM this morning. The patient has a long history of abdominal pain recently having her gallbladder removed. The patient states that she saw her surgeon on Tuesday and had a CAT scan. She states that her surgeon stated that she has cirrhosis of the liver. The patient takes lactulose and thus has diarrhea. The patient states that she does not have any nausea vomiting as she takes Zofran on a daily basis. The patient states that she went to work this morning at 08:00 and was unable to work and left at around 12;15. Patient describes the right upper quad pain as stabbing and the left lower quad pain as stabbing and throbbing. Patient states that she took her last pain medication at 8:00 this morning. Review of systems: As per history of present illness and below otherwise all systems reviewed and negative. Past medical history: As per history of present illness and as reviewed below otherwise noncontributory. Surgical history: As per history of present illness and as reviewed below otherwise noncontributory. Social history: See social history for further information Family history: As per history of present illness and as reviewed below otherwise noncontributory. Physical exam: General: Well developed and well nourished. Alert and orientated x 3. Nontoxic in appearance and in no acute distress. Vital signs are stable and have been reviewed by me. Nursing notes were reviewed. HEENT: Atraumatic, normocephalic, pupils equal and reactive bilaterally, negative for conjunctival pallor or scleral icterus, mucous membranes moist, TMs normal bilaterally, throat clear, neck supple, nontender, trachea midline. No drooling or trismus noted. No meningeal signs. No hot potato voice noted. Lungs: Clear to auscultation bilaterally. No wheezes, rales, or rhonchi. Chest nontender. Normal work of breathing, no accessory muscles used. Heart: S1S2, regular rate and rhythm without overt murmur, gallops, or rubs. No JVD. No peripheral edema Abdomen: Soft, nondistended, generalized exaggerated pain with palpation. Normoactive bowel sounds. Negative for masses or costovertebral tenderness. Skin: Intact, warm, dry. No lesions or rashes noted. Hematologic: No petechiae or purpra. Mucosa appropriate color and normal nail bed color and refill. Extremities: Atraumatic, moves all extremities per self without difficulty or deficits, negative for cords or calf pain. Neurovascular unremarkable. Neuro: Awake, alert, oriented. Cranial nerves II through XII unremarkable. Cerebellum unremarkable. Motor and sensory unremarkable throughout. Exam nonfocal. Psychiatric: Mood and affect are appropriate. Normal thought process. Answering questions appropriately. Notes: *This patient was seen and evaluated during the 2019 SARS-CoV-2 novel coronavirus pandemic period. Community viral transmission is ongoing at time of this encounter and the emergency department is operating under pandemic response procedures. The patient was seen in the emergency room on 06/28/2021 for complaints of abdominal pain which she described as knives and needle on her abdomen after having a cholecystectomy on 06/22/2021 and a liver biopsy. Her CT MPRESSION:1. Recent cholecystectomy on 06/22/2021. Small amount of postoperative free air with residual fluid in the gallbladder fossa, which may be due to resolving postoperative changes. No drainable abscess at this time. If any clinical concern for postoperative bile leak, consider nuclear medicine study. On-call surgeon Dr. Flores consulted as to CT results and treatment. No further treatment was recommended at that time. The patient returns today with complaints of right upper quad pain and left lower quad pain. She states her left lower quad pain is new and is concerned about it. The patient states that she did see her surgeon on Tuesday who repeated a CT of her abdomen and stated that she had cirrhosis of the liver which she takes lactulose on a daily basis. I have ordered blood work and an abdominal CT along with IV fluids for the patient. I will wait to see CT results prior to administering any narcotics. The patient is requesting to take her normal 5 prescribed home narcotics. I have instructed to wait until we get the CT. The CT has been delayed due to other emergencies in the emergency department. The patient's CT results IMPRESSION: 1. Improving postoperative changes in the gallbladder fossa without evidence for significant postoperative complication. 2. Moderate fluid retention throughout much of the GI tract is nonspecific. The bowel pattern does not appear to be obstructive. An ileus is possible. 3. No other acute or specific finding to explain pain. I spoke with the patient regarding the possible ileus diagnosis and the need to follow-up with her surgeon as taking the opioids could be making the situation worse. The patient voiced understanding and asked for Toradol. I ordered Toradol 30 mg IV for pain control and then the patient can be discharged. The patient was agreeable with this discharge plan. I was told by the nursing staff the patient verbalized that she was unable to take Toradol. The patient can manage her pain at home, however I did instruct her on the possibility that the narcotics could be decreasing peristalsis and making her pain worse. The patient is discharged. I have talked with the patient about today's findings, in addition to providing specific details for plan of care. Reassessment at the time of disposition demonstrates that the patient is in no acute distress. The patient is stable for discharge, counseling was provided and we discussed in great detail signs and symptoms that would prompt them to return to the Emergency Department. Medication, follow up and supportive care measures were reviewed and discussed. Voices understanding and is agreeable to plan of care. Denies any further questions or concerns at this time. Diagnostics: BC, CMP, CT abdomen pelvis Therapeutics: IV fluids, Zofran, Toradol Impression: Abdominal pain Plan: 1. You were evaluated today on an emergent basis. Your complaints of right upper quad pain and your new left lower quad pain's was evaluated with blood work which was negative. We did a CT of your abdomen pelvis which showed IMPRESSION: 1. Improving postoperative changes in the gallbladder fossa without evidence for significant postoperative complication. 2. Moderate fluid retention throughout much of the GI tract is nonspecific. The bowel pattern does not appear to be obstructive. An ileus is possible. 3. No other acute or specific finding to explain pain. As you are having normal bowel from your lactulose it is less likely that you have an ileus. However the narcotics can make the ileus worse. The ileus is just a slow wean of your GI tract. You need to follow-up with your surgeon for further treatment. You might need to stop the narcotics the situation worse. 2. You can alternate Tylenol and ibuprofen as needed for pain and fever management. 3. We encourage you to follow up with your primary care provider and/or recommended specialist in the next few days for re-evaluation and further care/management. 4. If your symptoms should worsen, new symptoms develop or any of the signs and symptoms we discussed should arise please return to the emergency room or call 911 (if needed). Definitive disposition and diagnosis as appropriate pending reevaluation and review of above. Right Abdomen Pain Score (Numeric/FACES): 10 - Related Data Allergies Allergy/AdvReac Type Severity Reaction Status Date / Time codeine Allergy Nausea and Verified 06/28/21 10:39 Vomiting Home Meds: Home Meds Furosemide [Lasix] 20 mg PO DAILY tablet 11/17/20 [Rx] Lactulose 10 gm PO BID PRN 10 Days #1 bottle 11/17/20 [Rx] LORazepam [Ativan] 0.5 mg PO BID PRN 12/10/20 [History] Spironolactone [Aldactone] 50 mg PO DAILY 12/10/20 [History] Omeprazole Magnesium [Prilosec Otc] 20 mg PO BID PRN 01/05/21 [History] Ondansetron [Zofran ODT] 4 mg PO Q6H PRN #12 tab.dis 02/22/21 [Rx] Folic Acid 1 tab PO DAILY 03/18/21 [History] oxyCODONE HCl [oxyCODONE] 15 mg PO Q4H PRN #24 tablet 05/26/21 [Rx] Past Medical History HEENT History: Reports: None Other HEENT History: Yellow sclera Cardiovascular History: Reports: None Respiratory History: Reports: Other (See Below) Other Respiratory History: Pluerisy Gastrointestinal History: Reports: Cirrhosis, Other (See Below) Other Gastrointestinal History: heartburn Genitourinary History: Reports: Other (See Below) Other Genitourinary History: yeast infection during [facility] FACER History: Reports: Musculoskeletal History: Reports: Back Pain, Chronic Other Musculoskeletal History: hx herniated disc in lower back Neurological History: Reports: None Psychiatric History: Reports: Anxiety Endocrine/Metabolic History: Reports: None Insulin Pump Model and Linseed Cake Trimmer: None Hematologic History: Reports: None Immunologic History: Reports: None Oncologic (Cancer) History: Reports: Cervix Dermatologic History: Reports: None - Infectious Disease History Infectious Disease History: Reports: Chicken Pox, Influenza, Novel Coronavirus - Past Surgical History Head Surgeries/Procedures: Reports: None HEENT Surgical History: Reports: Oral Surgery Other HEENT Surgeries/Procedures: teeth removed at 26 years of age wears dentu res Respiratory Surgical History: Reports: None GI Surgical History: Reports: Cholecystectomy, Other (See Below) Other GI Surgeries/Procedures: Weekly paracentesis in [facility], Liver Biopsy Female Surgical History: Reports: None Musculoskeletal Surgical History: Reports: None Oncologic Surgical History: Reports: Other (See Below) Other Oncologic Surgeries/Procedures: LEEP Social & Family History - Family History Family Medical History: No Pertinent Family History HEENT: Reports: Cataract, Glaucoma, Impaired Vision Cardiac: Reports: CAD, High Cholesterol, Hypertension GI: Reports: Cholelithiasis, Hepatitis OBGYN: Reports: Endometriosis Musculoskeletal: Reports: Arthritis, Back pain, Chronic, Neck Pain, Chronic, Osteoarthritis, RA Neurological: Reports: Alzheimers Disease, Dementia, Parkinson's Psychiatric: Reports: ADD, ADHD, Anxiety, Depression, Emotional Problems, Learning Disability, Mood Swings, Panic Attack Endocrine/Metabolic: Reports: Diabetes, type II, Hyperthyroidism Oncologic: Reports: Leukemia - Tobacco Use Tobacco Use Status *Q: Current Every Day Tobacco User Years of Tobacco use: 10 Packs/Tins Daily: 1 - Caffeine Use Caffeine Use: Reports: None - Recreational Drug Use Recreational Drug Use: No ED ROS GENERAL - Review of Systems Review Of Systems: Comprehensive ROS is negative, except as noted in HPI. ED EXAM, GI/ABD - Physical Exam Exam: See Below (See dictation) Course - Vital Signs Last Recorded V/S: Last Vital Signs Temp 95.0 F L 07/12/21 14:13 Pulse 83 07/12/21 18:58 Resp 18 07/12/21 18:58 BP 104/75 07/12/21 17:07 Pulse Ox 99 07/12/21 18:58 - Orders/Labs/Meds Orders: Active Orders 24 hr Category Date Time Status Saline Lock Insert [OM.PC] Stat Oth 07/12/21 14:43 Ordered Labs: Laboratory Tests 07/12/21 07/12/21 Range/Units 15:02 15:02 WBC 6.53 (4.0-11.0) K/uL RBC 4.11 L (4.30-5.90) M/uL Hgb 12.5 (12.0-16.0) g/dL Hct 36.5 (36.0-46.0) % MCV 88.8 (80.0-98.0) fL MCH 30.4 (27.0-32.0) pg MCHC 34.2 (31.0-37.0) g/dL RDW Std Deviation 49.7 (28.0-62.0) fl RDW Coeff of Blue 15 (11.0-15.0) % Plt Count 272 (150-400) K/uL MPV 11.20 (7.40-12.00) fL Neut % (Auto) 71.7 (48.0-80.0) % Lymph % (Auto) 19.1 (16.0-40.0) % Hudson % (Auto) 6.3 (0.0-15.0) % Eos % (Auto) 2.6 (0.0-7.0) % Baso % (Auto) 0.3 (0.0-1.5) % Neut # (Auto) 4.7 (1.4-5.7) K/uL Lymph # (Auto) 1.3 (0.6-2.4) K/uL Hudson # (Auto) 0.4 (0.0-0.8) K/uL Eos # (Auto) 0.2 (0.0-0.7) K/uL Baso # (Auto) 0.0 (0.0-0.1) K/uL Nucleated RBC % 0.0 /100WBC Nucleated RBCs # 0 K/uL Sodium 142 (136-145) mmol/L Potassium 3.7 (3.5-5.1) mmol/L Chloride 107 (98-107) mmol/L Carbon Dioxide 27.6 (21.0-32.0) mmol/L BUN 4 L (7.0-18.0) mg/dL Creatinine 0.7 (0.6-1.0) mg/dL Est Cr Clr Drug Dosing 86.67 mL/min Estimated GFR (MDRD) > 60.0 ml/min Glucose 86 (74-106) mg/dL Calcium 8.5 (8.5-10.1) mg/dL Total Bilirubin 0.3 (0.2-1.0) mg/dL AST 16 (15-37) IU/L ALT 23 (14-63) IU/L Alkaline Phosphatase 84 (46-116) U/L Total Protein 6.9 (6.4-8.2) g/dL Albumin 3.5 (3.4-5.0) g/dL Globulin 3.4 (2.6-4.0) g/dL Albumin/Globulin Ratio 1.0 (0.9-1.6) Meds: Medications Discontinued Medications Generic Name Dose Route Start Last Admin Trade Name Freq PRN Reason Stop Dose Admin Sodium Chloride 1,000 mls @ 999 mls/hr 07/12/21 14:44 07/12/21 14:57 Normal Saline IV 07/12/21 15:44 999 mls/hr .BOLUS ONE Administration Iopamidol 60 ml 07/12/21 18:09 07/12/21 18:10 Iopamidol 755 Mg/Ml 500 Ml Multipack Bottle IVPUSH 07/12/21 18:10 60 ml ONETIME STA Administration Ketorolac Tromethamine 30 mg 07/12/21 19:27 07/12/21 19:46 Ketorolac 30 Mg/Ml Sdv IVPUSH 07/12/21 19:28 Not Given ONETIME ONE Ondansetron HCl 4 mg 07/12/21 18:39 07/12/21 18:56 Ondansetron 4 Mg/2 Ml Sdv IVPUSH 07/12/21 18:40 4 mg ONETIME ONE Administration Sodium Chloride 10 ml 07/12/21 14:43 07/12/21 15:02 Sodium Chloride 0.9% 10 Ml Syringe FLUSH 10 ml ASDIRECTED PRN Administration Keep Vein Open Sodium Chloride 2.5 ml 07/12/21 14:43 07/12/21 15:05 Sodium Chloride 0.9% 2.5 Ml Syringe FLUSH 2.5 ml ASDIRECTED PRN Administration Keep Vein Open Departure - Departure Time of Disposition: 19:22 Disposition: Home, Self-Care 01 Condition: Good Clinical Impression: Abdominal pain Qualifiers: Abdominal location: right upper quadrant Qualified Code(s): R10.11 - Right upper quadrant pain - Discharge Information *PRESCRIPTION DRUG MONITORING PROGRAM REVIEWED*: Not Applicable *COPY OF PRESCRIPTION DRUG MONITORING REPORT IN PATIENT TATE: Not Applicable Instructions: Abdominal Pain, Adult, [id number] Referrals: Syed Nichols MD [Primary Care Provider] - Forms: ED Department Discharge Additional Instructions: The following information is given to patients seen in the emergency department who are being discharged to home. This information is to outline your options for follow-up care. We provide all patients seen in our emergency department with a follow-up referral. The need for follow-up, as well as the timing and circumstances, are variable depending upon the specifics of your emergency department visit. If you don't have a primary care physician on staff, we will provide you with a referral. We always advise you to contact your personal physician following an emergency department visit to inform them of the circumstance of the visit and for follow-up with them and/or the need for any referrals to a consulting specialist. The emergency department will also refer you to a specialist when appropriate. This referral assures that you have the opportunity for follow-up care with a specialist. All of these measure are taken in an effort to provide you with optimal care, which includes your follow-up. Under all circumstances we always encourage you to contact your private physician who remains a resource for coordinating your care. When calling for follow-up care, please make the office aware that this follow-up is from your recent emergency room visit. If for any reason you are refused follow-up, please contact the [facility] Emergency Department at and asked to speak to the emergency department charge nurse. [facility] [address] [place] [address] [place] [address] Plan: 1. You were evaluated today on an emergent basis. Your complaints of right upper quad pain and your new left lower quad pain's was evaluated with blood work which was negative. We did a CT of your abdomen pelvis which showed IMPRESSION: 1. Improving postoperative changes in the gallbladder fossa without evidence for significant postoperative complication. 2. Moderate fluid retention throughout much of the GI tract is nonspecific. The bowel pattern does not appear to be obstructive. An ileus is possible. 3. No other acute or specific finding to explain pain. As you are having normal bowel from your lactulose it is less likely that you have an ileus. However the narcotics can make the ileus worse. The ileus is just a slow wean of your GI tract. You need to follow-up with your surgeon for further treatment. You might need to stop the narcotics the situation worse. 2. You can alternate Tylenol and ibuprofen as needed for pain and fever management. 3. We encourage you to follow up with your primary care provider and/or recommended specialist in the next few days for re-evaluation and further care/management. 4. If your symptoms should worsen, new symptoms develop or any of the signs and symptoms we discussed should arise please return to the emergency room or call 911 (if needed). Sepsis Event Note (ED) - Focused Exam Vital Signs: Vital Signs Temp Pulse Resp BP Pulse Ox 07/12/21 18:58 83 18 99 07/12/21 17:07 78 18 104/75 94 L 07/12/21 14:13 95.0 F L 75 18 101/75 100 - My Orders Last 24 Hours: My Active Orders 07/12/21 14:43 Saline Lock Insert [OM.PC] Stat - Assessment/Plan Last 24 Hours: My Active Orders 07/12/21 14:43 Saline Lock Insert [OM.PC] Stat
[2021-07-12 15:30] LABS: BLOOD UREA NITROGEN,BUN 4 mg/dL (7.0-18.0); CARBON DIOXIDE,CO2 27.6 mmol/L (21.0-32.0); CHLORIDE,CL 107 mmol/L (98-107); GLUCOSE RANDOM 86 mg/dL (74-106); POTASSIUM,K 3.7 mmol/L (3.5-5.1); SODIUM,NA 142 mmol/L (136-145)
[2021-07-12] MEDS ORDERED: Iopamidol 755 MG/ML 500 ML Multipack Bottle IVPUSH STA (18:09)
[2021-07-12] MEDS ORDERED: Ondansetron 4 MG/2 ML SDV IVPUSH ONE (18:39)
--- NOTE | 2021-07-12 19:15 | CT ---
INDICATION: Abdominal pain. TECHNIQUE: CT abdomen and pelvis acquired with 100 cc Isovue 370 IV contrast. COMPARISON: June 28, 2021. FINDINGS: Lower chest: Unremarkable. Liver: Unremarkable. Normal in size and attenuation. No suspicious masses. Gallbladder and bile ducts: There are postoperative changes from a cholecystectomy. Small amount of residual fluid in the gallbladder fossa persists but has improved. Otherwise no postoperative complication. Pancreas: Unremarkable. No mass or inflammation. Spleen: Unremarkable. Normal in size. No masses. Adrenal glands: Unremarkable. No nodules. Kidneys: Unremarkable. No suspicious masses, stones, or hydronephrosis. GI tract: There is moderate fluid retention throughout much of the small bowel and colon. No obstructive changes. Normal appendix. Vasculature: Unremarkable. Mesenteric arteries are patent. Lymph nodes: No lymphadenopathy. Omentum/Peritoneum/Abdominal Wall: Unremarkable. No sign of mass or infiltration. No free air or significant free fluid. Pelvis: Unremarkable. Bones: Unremarkable for age. IMPRESSION: 1. Improving postoperative changes in the gallbladder fossa without evidence for significant postoperative complication. 2. Moderate fluid retention throughout much of the GI tract is nonspecific. The bowel pattern does not appear to be obstructive. An ileus is possible. 3. No other acute or specific finding to explain pain. Please note that all CT scans at this facility use dose modulation, iterative reconstruction, and/or weight-based dosing when appropriate to reduce radiation dose to as low as reasonably achievable. Dictated by Jayson Coley MD @ 07/12/2021 7:14:47 PM (Electronically Signed)
[2021-07-12] MEDS ORDERED: Ketorolac 30 MG/ML SDV IVPUSH ONE (19:27)
== END 2021-07-12 19:47 | disposition home or self-care (01) ==
LOC: MW.ED 12:36
DX: R10.11 Right upper quadrant pain (principal); Z88.5 Allergy status to narcotic agent; Z86.16 Personal history of COVID-19; Z90.49 Acquired absence of other specified parts of digestive tract; Z72.0 Tobacco use
CPT/HCPCS: 36415; 74177; 80053; 85025; 96374; 99284; J2405; J7030; Q9967

== ENCOUNTER 2021-08-03 20:40 | Emergency (ER) | payer BC, MEDICAID ==
[2021-08-03] MEDS ORDERED: Morphine 4 MG/ML Syringe IVPUSH ONE (21:26)
--- NOTE | 2021-08-03 21:26 | EDM.PDOC ---
ED HPI GENERAL MEDICAL PROBLEM - General Chief Complaint: Abdominal Pain Stated Complaint: LIVER SWOLLEN, PAIN Time Seen by Provider: 08/03/21 20:59 Source of Information: Reports: Patient History Limitations: Reports: No Limitations - History of Present Illness INITIAL COMMENTS - FREE TEXT/NARRATIVE: Patient is a 36-year-old female history of liver cirrhosis presents today for right upper quadrant pain. Patient has had her gallbladder removed back in May has been having because of pain since then. Patient states that he called her surgeon and he recommended come to the ER for pain control. Denies any masses to the area. Denies any drainage from the surgical sites. Patient denies any fevers or nausea or vomiting or any injuries to the abdomen. She also twisted her ankle when she saw someone in the ER before previously as well. Right Middle Abdominal Pain Score (Numeric/FACES): 8 - Related Data Allergies Allergy/AdvReac Type Severity Reaction Status Date / Time codeine Allergy Nausea and Verified 06/28/21 10:39 Vomiting Home Meds: Home Meds Furosemide [Lasix] 20 mg PO DAILY tablet 11/17/20 [Rx] Spironolactone [Aldactone] 50 mg PO DAILY 12/10/20 [History] Omeprazole Magnesium [Prilosec Otc] 20 mg PO BID PRN 01/05/21 [History] Ondansetron [Zofran ODT] 4 mg PO Q6H PRN #12 tab.dis 02/22/21 [Rx] Folic Acid 1 tab PO DAILY 03/18/21 [History] Lactulose 10 gm PO DAILY PRN 08/03/21 [History] Past Medical History HEENT History: Reports: None Other HEENT History: Yellow sclera Cardiovascular History: Reports: None Respiratory History: Reports: Other (See Below) Other Respiratory History: Pluerisy Gastrointestinal History: Reports: Cirrhosis, Other (See Below) Other Gastrointestinal History: heartburn Genitourinary History: Reports: Other (See Below) Other Genitourinary History: yeast infection during [employer] History: Reports: Musculoskeletal History: Reports: Back Pain, Chronic Other Musculoskeletal History: hx herniated disc in lower back Neurological History: Reports: None Psychiatric History: Reports: Anxiety Endocrine/Metabolic History: Reports: None Insulin Pump Model and Drop Forger: None Hematologic History: Reports: None Immunologic History: Reports: None Oncologic (Cancer) History: Reports: Cervix Dermatologic History: Reports: None - Infectious Disease History Infectious Disease History: Reports: Chicken Pox, Influenza, Novel Coronavirus - Past Surgical History Head Surgeries/Procedures: Reports: None HEENT Surgical History: Reports: Oral Surgery Other HEENT Surgeries/Procedures: teeth removed at 26 years of age wears dentures Respiratory Surgical History: Reports: None GI Surgical History: Reports: Cholecystectomy, Other (See Below) Other GI Surgeries/Procedures: Weekly paracentesis in [place]-Radiology Dept, Liver Biopsy Female Surgical History: Reports: None Musculoskeletal Surgical History: Reports: None Oncologic Surgical History: Reports: Other (See Below) Other Oncologic Surgeries/Procedures: LEEP Social & Family History - Family History Family Medical History: No Pertinent Family History HEENT: Reports: Cataract, Glaucoma, Impaired Vision Cardiac: Reports: CAD, High Cholesterol, Hypertension GI: Reports: Cholelithiasis, Hepatitis OBGYN: Reports: Endometriosis Musculoskeletal: Reports: Arthritis, Back pain, Chronic, Neck Pain, Chronic, Osteoarthritis, RA Neurological: Reports: Alzheimers Disease, Dementia, Parkinson's Psychiatric: Reports: ADD, ADHD, Anxiety, Depression, Emotional Problems, Learning Disability, Mood Swings, Panic Attack Endocrine/Metabolic: Reports: Diabetes, type II, Hyperthyroidism Oncologic: Reports: Leukemia - Caffeine Use Caffeine Use: Reports: None ED ROS GENERAL - Review of Systems Review Of Systems: See Below Constitutional: Reports: No Symptoms HEENT: Reports: No Symptoms Respiratory: Reports: No Symptoms Cardiovascular: Reports: No Symptoms Endocrine: Reports: No Symptoms GI/Abdominal: Reports: Abdominal Pain : Reports: No Symptoms Musculoskeletal: Reports: No Symptoms Skin: Reports: No Symptoms Neurological: Reports: No Symptoms Psychiatric: Reports: No Symptoms Hematologic/Lymphatic: Reports: No Symptoms Immunologic: Reports: No Symptoms ED EXAM, GI/ABD - Physical Exam Exam: See Below Exam Limited By: No Limitations General Appearance: Alert, WD/WN, No Apparent Distress Head: Atraumatic, Normocephalic Neck: Normal Inspection Respiratory/Chest: No Respiratory Distress, Lungs Clear, Normal Breath Sounds Cardiovascular: Normal Peripheral Pulses, Regular Rate, Rhythm GI/Abdominal Exam: Normal Bowel Sounds, Soft, Tender (Rt Upper quadrant) Extremities: Normal Inspection, Normal Range of Motion Neurological: Alert, Oriented, Normal Cognition, Normal Gait Course - Vital Signs Last Recorded V/S: Last Vital Signs Temp 96.5 F L 08/03/21 21:18 Pulse 101 H 08/03/21 21:18 Resp 18 08/03/21 21:18 BP 120/65 08/03/21 21:18 Pulse Ox 100 08/03/21 21:18 - Orders/Labs/Meds Orders: Active Orders 24 hr Category Date Time Status UA W/MICROSCOPIC [URIN] Stat Lab 08/03/21 21:13 Results HYDROmorphone [Dilaudid] Med 08/04/21 00:50 Once 1 mg IVPUSH ONETIME ONE Labs: Laboratory Tests 08/03/21 08/03/21 08/03/21 Range/Units 21:13 21:13 21:45 WBC 6.02 (4.0-11.0) K/uL RBC 3.80 L (4.30-5.90) M/uL Hgb 11.7 L (12.0-16.0) g/dL Hct 34.5 L (36.0-46.0) % MCV 90.8 (80.0-98.0) fL MCH 30.8 (27.0-32.0) pg MCHC 33.9 (31.0-37.0) g/dL RDW Std Deviation 50.7 (28.0-62.0) fl RDW Coeff of Blue 15 (11.0-15.0) % Plt Count 233 (150-400) K/uL MPV 11.10 (7.40-12.00) fL Neut % (Auto) 50.2 (48.0-80.0) % Lymph % (Auto) 36.2 (16.0-40.0) % Stanly % (Auto) 6.6 (0.0-15.0) % Eos % (Auto) 6.0 (0.0-7.0) % Baso % (Auto) 1.0 (0.0-1.5) % Neut # (Auto) 3.0 (1.4-5.7) K/uL Lymph # (Auto) 2.2 (0.6-2.4) K/uL Stanly # (Auto) 0.4 (0.0-0.8) K/uL Eos # (Auto) 0.4 (0.0-0.7) K/uL Baso # (Auto) 0.1 (0.0-0.1) K/uL Nucleated RBC % 0.0 /100WBC Nucleated RBCs # 0 K/uL Sodium (136-145) mmol/L Potassium (3.5-5.1) mmol/L Chloride (98-107) mmol/L Carbon Dioxide (21.0-32.0) mmol/L BUN (7.0-18.0) mg/dL Creatinine (0.6-1.0) mg/dL Est Cr Clr Drug Dosing mL/min Estimated GFR (MDRD) ml/min Glucose (74-106) mg/dL Calcium (8.5-10.1) mg/dL Total Bilirubin (0.2-1.0) mg/dL AST (15-37) IU/L ALT (14-63) IU/L Alkaline Phosphatase (46-116) U/L Total Protein (6.4-8.2) g/dL Albumin (3.4-5.0) g/dL Globulin (2.6-4.0) g/dL Albumin/Globulin Ratio (0.9-1.6) Lipase (73-393) U/L Urine Color YELLOW Urine Appearance HAZY Urine pH 6.5 (5.0-8.0) Ur Specific Dolphin <= 1.005 (1.001-1.035) Urine Protein NEGATIVE (NEGATIVE) mg/dL Urine Glucose (UA) NEGATIVE (NEGATIVE) mg/dL Urine Ketones NEGATIVE (NEGATIVE) mg/dL Urine Occult Blood LARGE H (NEGATIVE) Urine Nitrite NEGATIVE (NEGATIVE) Urine Bilirubin NEGATIVE (NEGATIVE) Urine Urobilinogen 0.2 (<2.0) EU/dL Ur Leukocyte Esterase NEGATIVE (NEGATIVE) Urine Opiates Screen NEGATIVE (NEGATIVE) Ur Oxycodone Screen NEGATIVE (NEGATIVE) Urine Methadone Screen NEGATIVE (NEGATIVE) Ur Barbiturates Screen NEGATIVE (NEGATIVE) Ur Phencyclidine Scrn NEGATIVE (NEGATIVE) Ur Amphetamine Screen NEGATIVE (NEGATIVE) U Methamphetamines Scrn NEGATIVE (NEGATIVE) U Benzodiazepines Scrn NEGATIVE (NEGATIVE) U Cocaine Metab Screen NEGATIVE (NEGATIVE) U Marijuana (THC) Screen NEGATIVE (NEGATIVE) 08/03/21 Range/Units 21:45 WBC (4.0-11.0) K/uL RBC (4.30-5.90) M/uL Hgb (12.0-16.0) g/dL Hct (36.0-46.0) % MCV (80.0-98.0) fL MCH (27.0-32.0) pg MCHC (31.0-37.0) g/dL RDW Std Deviation (28.0-62.0) fl RDW Coeff of Blue (11.0-15.0) % Plt Count (150-400) K/uL MPV (7.40-12.00) fL Neut % (Auto) (48.0-80.0) % Lymph % (Auto) (16.0-40.0) % Stanly % (Auto) (0.0-15.0) % Eos % (Auto) (0.0-7.0) % Baso % (Auto) (0.0-1.5) % Neut # (Auto) (1.4-5.7) K/uL Lymph # (Auto) (0.6-2.4) K/uL Stanly # (Auto) (0.0-0.8) K/uL Eos # (Auto) (0.0-0.7) K/uL Baso # (Auto) (0.0-0.1) K/uL Nucleated RBC % /100WBC Nucleated RBCs # K/uL Sodium 143 (136-145) mmol/L Potassium 3.7 (3.5-5.1) mmol/L Chloride 105 (98-107) mmol/L Carbon Dioxide 32.6 H (21.0-32.0) mmol/L BUN 8 (7.0-18.0) mg/dL Creatinine 0.8 (0.6-1.0) mg/dL Est Cr Clr Drug Dosing 76.00 mL/min Estimated GFR (MDRD) > 60.0 ml/min Glucose 90 (74-106) mg/dL Calcium 9.0 (8.5-10.1) mg/dL Total Bilirubin 0.2 (0.2-1.0) mg/dL AST 17 (15-37) IU/L ALT 22 (14-63) IU/L Alkaline Phosphatase 83 (46-116) U/L Total Protein 6.5 (6.4-8.2) g/dL Albumin 3.5 (3.4-5.0) g/dL Globulin 3.0 (2.6-4.0) g/dL Albumin/Globulin Ratio 1.2 (0.9-1.6) Lipase 221 (73-393) U/L Urine Color Urine Appearance Urine pH (5.0-8.0) Ur Specific Dolphin (1.001-1.035) Urine Protein (NEGATIVE) mg/dL Urine Glucose (UA) (NEGATIVE) mg/dL Urine Ketones (NEGATIVE) mg/dL Urine Occult Blood (NEGATIVE) Urine Nitrite (NEGATIVE) Urine Bilirubin (NEGATIVE) Urine Urobilinogen (<2.0) EU/dL Ur Leukocyte Esterase (NEGATIVE) Urine Opiates Screen (NEGATIVE) Ur Oxycodone Screen (NEGATIVE) Urine Methadone Screen (NEGATIVE) Ur Barbiturates Screen (NEGATIVE) Ur Phencyclidine Scrn (NEGATIVE) Ur Amphetamine Screen (NEGATIVE) U Methamphetamines Scrn (NEGATIVE) U Benzodiazepines Scrn (NEGATIVE) U Cocaine Metab Screen (NEGATIVE) U Marijuana (THC) Screen (NEGATIVE) Meds: Medications Discontinued Medications Generic Name Dose Route Start Last Admin Trade Name Freq PRN Reason Stop Dose Admin Iopamidol 100 ml 08/03/21 23:33 08/03/21 23:33 Iopamidol 755 Mg/Ml 500 Ml Multipack Bottle IVPUSH 08/03/21 23:34 100 ml ONETIME STA Administration Morphine Sulfate 4 mg 08/03/21 21:26 08/03/21 21:49 Morphine 4 Mg/Ml Syringe IVPUSH 08/03/21 21:27 4 mg ONETIME ONE Administration Morphine Sulfate 4 mg 08/04/21 00:29 Morphine 4 Mg/Ml Syringe IVPUSH 08/04/21 00:30 ONETIME ONE Ondansetron HCl Confirm 08/03/21 22:32 Ondansetron 4 Mg/2 Ml Sdv Administered 08/03/21 22:33 Dose 4 mg .ROUTE .STK-MED ONE - Re-Assessments/Exams Free Text/Narrative Re-Assessment/Exam: 08/04/21 00:50 We do not find any identifying cause the patient pain. Patient's had this before he has pain in the past and we have stressed importance of patient follow-up with her surgeon to get understand and was causing his pain. Patient is stable vitals are stable she looks well tolerating p.o. Departure - Departure Time of Disposition: 00:51 Disposition: Home, Self-Care 01 Condition: Good Clinical Impression: Abdominal pain Qualifiers: Abdominal location: right upper quadrant Qualified Code(s): R10.11 - Right upper quadrant pain - Discharge Information *PRESCRIPTION DRUG MONITORING PROGRAM REVIEWED*: Not Applicable *COPY OF PRESCRIPTION DRUG MONITORING REPORT IN PATIENT TATE: Not Applicable Instructions: Abdominal Pain, Adult, [id number] Referrals: PCP,Not In Area [Primary Care Provider] - Forms: ED Department Discharge Additional Instructions: The following information is given to patients seen in the emergency department who are being discharged to home. This information is to outline your options for follow-up care. We provide all patients seen in our emergency department with a follow-up referral. The need for follow-up, as well as the timing and circumstances, are variable depending upon the specifics of your emergency department visit. If you don't have a primary care physician on staff, we will provide you with a referral. We always advise you to contact your personal physician following an emergency department visit to inform them of the circumstance of the visit and for follow-up with them and/or the need for any referrals to a consulting specialist. The emergency department will also refer you to a specialist when appropriate. This referral assures that you have the opportunity for follow-up care with a specialist. All of these measure are taken in an effort to provide you with optimal care, which includes your follow-up. Under all circumstances we always encourage you to contact your private physician who remains a resource for coordinating your care. When calling for follow-up care, please make the office aware that this follow-up is from your recent emergency room visit. If for any reason you are refused follow-up, please contact the [facility] Emergency Department at and asked to speak to the emergency department charge nurse. Please follow up with your primary care physician. If you do not have a primary care physician, see below: [facility] [address] [place] [id number] [facility] [address] [place] [id number] Your seen today for abdominal pain. You have had abdominal pain for the past and had multiple CAT scans cannot find the identified cause at this pain. We r ecommend that you please follow-up with your surgeon instead of coming to the ER as the surgeons wanted did the surgery. You had to find a reason that was causing his pain we recommend you follow-up with him but if you have any concerning signs or symptoms please feel free to return to the ED. Sepsis Event Note (ED) - Evaluation Sepsis Screening Result: No Definite Risk - Focused Exam Vital Signs: Vital Signs Temp Pulse Resp BP Pulse Ox 08/03/21 21:18 96.5 F L 101 H 18 120/65 100 - My Orders Last 24 Hours: My Active Orders 08/04/21 00:50 HYDROmorphone [Dilaudid] 1 mg IVPUSH ONETIME ONE - Assessment/Plan Last 24 Hours: My Active Orders 08/04/21 00:50 HYDROmorphone [Dilaudid] 1 mg IVPUSH ONETIME ONE Plan: Patient is a 36-year-old female who presents today for abdominal pain. Patient has liver cirrhosis also had a cholecystectomy. Will obtain a CT scan to make sure she does not have any abscesses or other findings causing her pain after having a closed ectomy 2 months ago.
[2021-08-03 22:14] LABS: BLOOD UREA NITROGEN,BUN 8 mg/dL (7.0-18.0); CARBON DIOXIDE,CO2 32.6 mmol/L (21.0-32.0); CHLORIDE,CL 105 mmol/L (98-107); GLUCOSE RANDOM 90 mg/dL (74-106); LIPASE 221 U/L (73-393); POTASSIUM,K 3.7 mmol/L (3.5-5.1); SODIUM,NA 143 mmol/L (136-145)
--- NOTE | 2021-08-03 22:22 | CR ---
INDICATION: Pain to medial and lateral sides of ankle. When flexing pain to anterior portion and up. No specified injury TECHNIQUE: Ankle radiograph 3 views left COMPARISON: None FINDINGS: Bone: No acute fractures or aggressive bone lesions are identified. Joint: The ankle mortise joint and the visualized hindfoot joints are unremarkable in appearance. No significant ankle effusion is seen. Soft tissue: The Kager fat pad and the Achilles` tendon is normal in appearance. No radiopaque foreign bodies are seen. IMPRESSION: 1. No acute osseous injuries or abnormalities are noted. Dictated by: Carlos Otero MD @ 08/03/2021 22:21:27 (Electronically Signed)
[2021-08-03] MEDS ORDERED: Ondansetron 4 MG/2 ML SDV ONE (22:32)
[2021-08-03] MEDS ORDERED: Iopamidol 755 MG/ML 500 ML Multipack Bottle IVPUSH STA (23:33)
--- NOTE | 2021-08-04 00:11 | CT ---
INDICATION: Right-sided pain status post cholecystectomy. COMPARISON: CT of the abdomen and pelvis from 07/12/2021. TECHNIQUE: CT examination of the abdomen and pelvis was performed with the uneventful intravenous administration of 100 cc of Isovue 370 while 2.5 mm thick axial sections were obtained from the lung bases through the pubic symphysis. Oral contrast was not administered. Please note that all CT scans at this facility use dose modulation, iterative reconstruction, and/or weight-based dosing when appropriate to reduce radiation dose to as low as reasonably achievable. FINDINGS: In the abdomen, the liver, spleen, pancreas, and adrenals are normal in appearance. The kidneys are normal in appearance. Again seen is early contrast excretion into the nondistended urinary system, making it impossible to exclude tiny nonobstructive calculi. Clips are again seen in the gall bladder fossa from cholecystectomy. There is a tiny amount of residual fluid in the gallbladder fossa, decreased compared to the previous study. This is consistent with a resolving postoperative seroma. The abdominal aorta is normal in caliber with no sign of dilatation. There is no sign of retroperitoneal mass or adenopathy. The stomach, loops of small bowel, and colon in the abdomen are normal in appearance. Again seen is a small fat containing periumbilical hernia. In the pelvis, the retrocecal appendix is normal in appearance with no sign of inflammatory process. The loops of small bowel and colon in the pelvis are normal in appearance. The right ovary is now seen to have a peripherally enhancing cyst measuring 1.2 centimeters in diameter consistent with an involuting primary follicular cyst. The uterus and left ovary are normal in appearance. The urinary bladder is normal in appearance. There is no sign of pelvic or inguinal mass or adenopathy. There is no sign of free air or free fluid in the abdomen or pelvis. The lung bases are clear. There is mild scoliosis of the thoracolumbar spine convex towards the right. IMPRESSION: CT of the abdomen shows a small fluid collection remaining in the gallbladder fossa consistent with a resolving postoperative seroma. Again seen are surgical clips from cholecystectomy with no sign of biliary ductal dilatation. CT of the pelvis shows a new peripherally enhancing right ovarian cyst measuring 1.2 centimeters in diameter consistent with an involuting follicular cyst. Please note that all CT scans at this facility use dose modulation, iterative reconstruction, and/or weight-based dosing when appropriate to reduce radiation dose to as low as reasonably achievable. Dictated by Jessee Sun MD @ 08/04/2021 12:08:44 AM (Electronically Signed)
[2021-08-04] MEDS ORDERED: Morphine 4 MG/ML Syringe IVPUSH ONE (00:29)
[2021-08-04] MEDS ORDERED: HYDROmorphone 1 MG/ML Syringe IVPUSH ONE (00:50)
== END 2021-08-04 01:06 | disposition home or self-care (01) ==
LOC: MW.ED 20:40
DX: R10.11 Right upper quadrant pain (principal); Z88.5 Allergy status to narcotic agent; Z79.899 Other long term (current) drug therapy
CPT/HCPCS: 36415; 73610; 74177; 80053; 80305; 81001; 83690; 85025; 96374; 96375; 99284; J1170; J2270; J2405; Q9967

== ENCOUNTER 2021-08-06 01:18 | Emergency (ER) | payer MEDICAID ==
--- NOTE | 2021-08-06 02:06 | EDM.PDOC ---
ED HPI GENERAL MEDICAL PROBLEM - General Chief Complaint: Abdominal Pain Stated Complaint: ABDOMINAL PAIN; CIRRHOSIS OF THE LIVER Time Seen by Provider: 08/06/21 01:22 Source of Information: Reports: Patient History Limitations: Reports: No Limitations - History of Present Illness INITIAL COMMENTS - FREE TEXT/NARRATIVE: Patient is a 36-year-old female who presents today for abdominal pain. Patient is presented multiple times before in the past for similar pain has had multiple CAT scans did not show any concerning findings of the patient's pain. Saw patient myself 3 days ago and she states she has some pain in the right upper quadrants that she called her surgeon and surgeon told her get here right away and get pain control. We did a work-up CT scan did not show any findings of the pain but she did have an ovarian cyst but her pain was upper abdomen area. Tonight she states that her pain became very intense she tried to call her surgeon her GI doctor and pain management doctor but none to them answer the phone can refill her medications. States she has had this pain came out of nowhere denies any vomiting diarrhea or other complaints. Abdominal Pain Score (Numeric/FACES): 10 - Related Data Allergies Allergy/AdvReac Type Severity Reaction Status Date / Time codeine Allergy Nausea and Verified 08/06/21 01:32 Vomiting Home Meds: Home Meds Furosemide [Lasix] 20 mg PO DAILY tablet 11/17/20 [Rx] Spironolactone [Aldactone] 50 mg PO DAILY 12/10/20 [History] Folic Acid 1 tab PO DAILY 03/18/21 [History] Lactulose 10 gm PO DAILY PRN 08/03/21 [History] Past Medical History HEENT History: Reports: None Other HEENT History: Yellow sclera Cardiovascular History: Reports: None Respiratory History: Reports: Other (See Below) Other Respiratory History: Pluerisy Gastrointestinal History: Reports: Cirrhosis, Other (See Below) Other Gastrointestinal History: heartburn Genitourinary History: Reports: Other (See Below) Other Genitourinary History: yeast infection during 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: Musculoskeletal History: Reports: Back Pain, Chronic Other Musculoskeletal History: hx herniated disc in lower back Neurological History: Reports: None Psychiatric History: Reports: Anxiety Endocrine/Metabolic History: Reports: None 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 Pump Model and 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 Instructor: None Hematologic History: Reports: None Immunologic History: Reports: None Oncologic (Cancer) History: Reports: Cervix Dermatologic History: Reports: None - Infectious Disease History Infectious Disease History: Reports: Chicken Pox, Influenza, Novel Coronavirus - Past Surgical History Head Surgeries/Procedures: Reports: None HEENT Surgical History: Reports: Oral Surgery Other HEENT Surgeries/Procedures: teeth removed at 26 years of age wears dentures Respiratory Surgical History: Reports: None GI Surgical History: Reports: Cholecystectomy, Other (See Below) Other GI Surgeries/Procedures: Weekly paracentesis in [place]-Radiology Dept, Liver Biopsy Female Surgical History: Reports: None Musculoskeletal Surgical History: Reports: None Oncologic Surgical History: Reports: Other (See Below) Other Oncologic Surgeries/Procedures: LEEP Social & Family History - Family History Family Medical History: No Pertinent Family History HEENT: Reports: Cataract, Glaucoma, Impaired Vision Cardiac: Reports: CAD, High Cholesterol, Hypertension GI: Reports: Cholelithiasis, Hepatitis OBGYN: Reports: Endometriosis Musculoskeletal: Reports: Arthritis, Back pain, Chronic, Neck Pain, Chronic, Osteoarthritis, RA Neurological: Reports: Alzheimers Disease, Dementia, Parkinson's Psychiatric: Reports: ADD, ADHD, Anxiety, Depression, Emotional Problems, Learning Disability, Mood Swings, Panic Attack Endocrine/Metabolic: Reports: Diabetes, type II, Hyperthyroidism Oncologic: Reports: Leukemia - Caffeine Use Caffeine Use: Reports: Soda ED ROS GENERAL - Review of Systems Review Of Systems: See Below Constitutional: Reports: No Symptoms HEENT: Reports: No Symptoms Respiratory: Reports: No Symptoms Cardiovascular: Reports: No Symptoms Endocrine: Reports: No Symptoms GI/Abdominal: Reports: Abdominal Pain : Reports: No Symptoms Musculoskeletal: Reports: No Symptoms Skin: Reports: No Symptoms Neurological: Reports: No Symptoms Psychiatric: Reports: No Symptoms Hematologic/Lymphatic: Reports: No Symptoms Immunologic: Reports: No Symptoms ED EXAM, GI/ABD - Physical Exam Exam: See Below Exam Limited By: No Limitations General Appearance: Alert, WD/WN, Moderate Distress Respiratory/Chest: No Respiratory Distress Cardiovascular: Normal Peripheral Pulses, Regular Rate, Rhythm GI/Abdominal Exam: Normal Bowel Sounds, Tender Extremities: Normal Inspection Neurological: Alert, Oriented Course - Vital Signs Last Recorded V/S: Last Vital Signs Temp 99.1 F 08/06/21 01:26 Pulse 101 H 08/06/21 01:45 Resp 20 08/06/21 01:45 BP 110/70 08/06/21 01:45 Pulse Ox 99 08/06/21 01:45 Departure - Departure Time of Disposition: 02:05 Disposition: Against Medical Advice 07 Condition: Fair Clinical Impression: Abdominal pain - Discharge Information *PRESCRIPTION DRUG MONITORING PROGRAM REVIEWED*: Not Applicable *COPY OF PRESCRIPTION DRUG MONITORING REPORT IN PATIENT TATE: Not Applicable Referrals: Carlin Mansfield MD [Primary Care Provider] - Forms: ED Department Discharge Sepsis Event Note (ED) - Evaluation Sepsis Screening Result: No Definite Risk - Focused Exam Vital Signs: Vital Signs Temp Pulse Resp BP Pulse Ox 08/06/21 01:45 101 H 20 110/70 99 08/06/21 01:26 99.1 F 111 H 20 108/62 98 - Assessment/Plan Plan: Patient is a 36-year-old female history of liver cirrhosis per patient presents today for abdominal pain. Patient was seen here few days ago by myself for similar pain has been here multiple times for pain of the abdomen in the past has multiple CAT scans. Her last CAT scan did show an ovarian cyst. Satish spoke to patient and was going to give alternative pain meds patient that she cannot take Tylenol due to her liver cirrhosis you know patient's liver enzymes are normal and CT scans not show any nodules or signs of liver cirrhosis. We try to offer Toradol patient also refused patient decided to leave and not want to try any other alternative pain medicines. Patient understands the risks of leaving. The patient is clinically not intoxicated, free from distracting pain, appears to have intact insight, judgment and reason and in my medical opinion has the capacity to make decisions. The patient is also not under any duress to leave the hospital. In this scenario, it would be battery to subject a patient to treatment against his/her will. I have voiced my concerns for the patient's health given that a full evaluation and treatment had not occurred. I have discussed the need for continued evaluation to determine if their symptoms are caused by a condition that present risk of or morbidity. Risks including but not limited to , permanent disability, prolonged hospitalization, prolonged illness, were discussed. I tried offering alternative options in hopes that the patient might be amenable to partial evaluation and treatment which would be medically beneficial to the patient, though the patient declined my options and insisted on leaving. Because I have been unable to convince the patient to stay, I answered all of their questions about their condition and asked them to return to the ED as soon as possible to complete their evaluation, especially if their symptoms worsen or do not improve. I emphasized that leaving against medical advice does not preclude returning here for further evaluation. I asked the patient to return if they change their mind about the further evaluation and treatment. I strongly encouraged the patient to return to this Emergency Department or any Emergency Department at any time, particularly with worsening symptoms.
== END 2021-08-06 01:45 | disposition left against medical advice (07) ==
LOC: MW.ED 01:18
DX: R10.11 Right upper quadrant pain (principal); Z88.5 Allergy status to narcotic agent
CPT/HCPCS: 99283

== ENCOUNTER 2021-08-20 00:05 | Emergency (ER) | payer MEDICAID ==
--- NOTE | 2021-08-20 00:36 | EDM.PDOC ---
ED HPI GENERAL MEDICAL PROBLEM - General Chief Complaint: General Stated Complaint: PANIC ATTACK, LIVER PAIN, CONFUSION Time Seen by Provider: 08/20/21 00:06 Source of Information: Reports: Patient History Limitations: Reports: No Limitations - History of Present Illness INITIAL COMMENTS - FREE TEXT/NARRATIVE: 36-year-old female presents for abdominal pain. This is the patient's 35th ER visit this year. Past medical history of cirrhosis secondary to alcohol abuse although patient is stopped for about 1 year. Patient had been waiting a long time to get her gallbladder removed but was able to get it done in May. She had residual pain ever since. She is on oxycodone daily. She is in the process of finding a pain management doctor. She is here for abdominal pain as well as concern for high ammonia levels due to her bleach smelling breath. She endorses anxiety. Left Lower Abdomen Pain Score (Numeric/FACES): 5 - Related Data Allergies Allergy/AdvReac Type Severity Reaction Status Date / Time codeine Allergy Nausea and Verified 08/20/21 00:24 Vomiting Home Meds: Home Meds Furosemide [Lasix] 20 mg PO DAILY tablet 11/17/20 [Rx] Spironolactone [Aldactone] 50 mg PO DAILY 12/10/20 [History] Folic Acid 1 tab PO DAILY 03/18/21 [History] Lactulose 10 gm PO DAILY PRN 08/03/21 [History] Past Medical History HEENT History: Reports: None Other HEENT History: Yellow sclera Cardiovascular History: Reports: None Respiratory History: Reports: Other (See Below) Other Respiratory History: Pluerisy Gastrointestinal History: Reports: Cirrhosis, Other (See Below) Other Gastrointestinal History: heartburn Genitourinary History: Reports: Other (See Below) Other Genitourinary History: yeast infection during [employer] 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: Reports: Musculoskeletal History: Reports: Back Pain, Chronic Other Musculoskeletal History: hx herniated disc in lower back Neurological History: Reports: None Psychiatric History: Reports: Anxiety Endocrine/Metabolic History: Reports: None Insulin 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 Model 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 Hematologic History: Reports: None Immunologic History: Reports: None Oncologic (Cancer) History: Reports: Cervix Dermatologic History: Reports: None - Infectious Disease History Infectious Disease History: Reports: Chicken Pox, Influenza, Novel Coronavirus - Past Surgical History Head Surgeries/Procedures: Reports: None HEENT Surgical History: Reports: Oral Surgery Other HEENT Surgeries/Procedures: teeth removed at 26 years of age wears dentures Respiratory Surgical History: Reports: None GI Surgical History: Reports: Cholecystectomy, Other (See Below) Other GI Surgeries/Procedures: Weekly paracentesis in [place]-[facility] Dept, Liver Biopsy Female Surgical History: Reports: None Musculoskeletal Surgical History: Reports: None Oncologic Surgical History: Reports: Other (See Below) Other Oncologic Surgeries/Procedures: LEEP Social & Family History - Family History Family Medical History: No Pertinent Family History HEENT: Reports: Cataract, Glaucoma, Impaired Vision Cardiac: Reports: CAD, High Cholesterol, Hypertension GI: Reports: Cholelithiasis, Hepatitis OBGYN: Reports: Endometriosis Musculoskeletal: Reports: Arthritis, Back pain, Chronic, Neck Pain, Chronic, Osteoarthritis, RA Neurological: Reports: Alzheimers Disease, Dementia, Parkinson's Psychiatric: Reports: ADD, ADHD, Anxiety, Depression, Emotional Problems, Learning Disability, Mood Swings, Panic Attack Endocrine/Metabolic: Reports: Diabetes, type II, Hyperthyroidism Oncologic: Reports: Leukemia - Tobacco Use Tobacco Use Status *Q: Never Tobacco User - Caffeine Use Caffeine Use: Reports: None - Recreational Drug Use Recreational Drug Use: No ED ROS GENERAL - Review of Systems Review Of Systems: Comprehensive ROS is negative, except as noted in HPI. ED EXAM, GENERAL - Physical Exam Exam: See Below Exam Limited By: No Limitations General Appearance: Alert, WD/WN, No Apparent Distress Ears: Hearing Grossly Normal Throat/Mouth: Normal Voice, No Airway Compromise Head: Atraumatic, Normocephalic Respiratory/Chest: No Respiratory Distress, Lungs Clear, Normal Breath Sounds, No Accessory Muscle Use Cardiovascular: Normal Peripheral Pulses, Regular Rate, Rhythm GI/Abdominal: Soft, Non-Tender Extremities: Normal Inspection Neurological: Alert, Normal Cognition, Normal Gait Psychiatric: Normal Affect, Normal Mood Skin Exam: Warm, Dry, Intact, Normal Color Course - Vital Signs Last Recorded V/S: Last Vital Signs Temp 96.8 F L 08/20/21 00:20 Pulse 84 08/20/21 00:20 Resp 18 08/20/21 00:20 BP 106/77 08/20/21 00:20 Pulse Ox 97 08/20/21 00:20 - Orders/Labs/Meds Orders: Active Orders 24 hr Category Date Time Status Sodium Chloride 0.9% [Normal Saline] 1,000 ml Med 08/20/21 00:40 Active IV .Bolus Saline Lock Insert [OM.PC] Stat Oth 08/20/21 00:40 Ordered Medication Orders Sodium Chloride (Normal Saline) 1,000 mls @ 999 mls/hr IV .Bolus ONE Stop: 08/20/21 01:40 Last Admin: 08/20/21 00:51 Dose: 999 mls/hr Documented by: ALAN Labs: Laboratory Tests 08/20/21 08/20/21 08/20/21 Range/Units 00:38 00:38 00:38 WBC 3.95 L (4.0-11.0) K/uL RBC 4.17 L (4.30-5.90) M/uL Hgb 13.1 (12.0-16.0) g/dL Hct 38.1 (36.0-46.0) % MCV 91.4 (80.0-98.0) fL MCH 31.4 (27.0-32.0) pg MCHC 34.4 (31.0-37.0) g/dL RDW Std Deviation 47.4 (28.0-62.0) fl RDW Coeff of Blue 15 (11.0-15.0) % Plt Count 207 (150-400) K/uL MPV 10.80 (7.40-12.00) fL Neut % (Auto) 51.9 (48.0-80.0) % Lymph % (Auto) 32.9 (16.0-40.0) % [place] % (Auto) 12.4 (0.0-15.0) % Eos % (Auto) 2.0 (0.0-7.0) % Baso % (Auto) 0.8 (0.0-1.5) % Neut # (Auto) 2.1 (1.4-5.7) K/uL Lymph # (Auto) 1.3 (0.6-2.4) K/uL [place] # (Auto) 0.5 (0.0-0.8) K/uL Eos # (Auto) 0.1 (0.0-0.7) K/uL Baso # (Auto) 0.0 (0.0-0.1) K/uL Sodium 141 (136-145) mmol/L Potassium 3.7 (3.5-5.1) mmol/L Chloride 102 (98-107) mmol/L Carbon Dioxide 26.2 (21.0-32.0) mmol/L BUN 10 (7.0-18.0) mg/dL Creatinine 0.8 (0.6-1.0) mg/dL Est Cr Clr Drug Dosing 76.15 mL/min Estimated GFR (MDRD) > 60.0 ml/min Glucose 94 (74-106) mg/dL Lactic Acid (0.4-2.0) mmol/L Calcium 9.2 (8.5-10.1) mg/dL Magnesium 2.1 (1.8-2.4) mg/dL Total Bilirubin 1.3 H (0.2-1.0) mg/dL AST 30 (15-37) IU/L ALT 24 (14-63) IU/L Alkaline Phosphatase 111 (46-116) U/L Ammonia (19-54) ug/dL Total Protein 7.4 (6.4-8.2) g/dL Albumin 3.8 (3.4-5.0) g/dL Globulin 3.6 (2.6-4.0) g/dL Albumin/Globulin Ratio 1.1 (0.9-1.6) Lipase 63 L (73-393) U/L HCG, Qual NEGATIVE (NEG) 08/20/21 08/20/21 Range/Units 00:53 00:53 WBC (4.0-11.0) K/uL RBC (4.30-5.90) M/uL Hgb (12.0-16.0) g/dL Hct (36.0-46.0) % MCV (80.0-98.0) fL MCH (27.0-32.0) pg MCHC (31.0-37.0) g/dL RDW Std Deviation (28.0-62.0) fl RDW Coeff of Blue (11.0-15.0) % Plt Count (150-400) K/uL MPV (7.40-12.00) fL Neut % (Auto) (48.0-80.0) % Lymph % (Auto) (16.0-40.0) % [place] % (Auto) (0.0-15.0) % Eos % (Auto) (0.0-7.0) % Baso % (Auto) (0.0-1.5) % Neut # (Auto) (1.4-5.7) K/uL Lymph # (Auto) (0.6-2.4) K/uL [place] # (Auto) (0.0-0.8) K/uL Eos # (Auto) (0.0-0.7) K/uL Baso # (Auto) (0.0-0.1) K/uL Sodium (136-145) mmol/L Potassium (3.5-5.1) mmol/L Chloride (98-107) mmol/L Carbon Dioxide (21.0-32.0) mmol/L BUN (7.0-18.0) mg/dL Creatinine (0.6-1.0) mg/dL Est Cr Clr Drug Dosing mL/min Estimated GFR (MDRD) ml/min Glucose (74-106) mg/dL Lactic Acid 1.5 (0.4-2.0) mmol/L Calcium (8.5-10.1) mg/dL Magnesium (1.8-2.4) mg/dL Total Bilirubin (0.2-1.0) mg/dL AST (15-37) IU/L ALT (14-63) IU/L Alkaline Phosphatase (46-116) U/L Ammonia 44 (19-54) ug/dL Total Protein (6.4-8.2) g/dL Albumin (3.4-5.0) g/dL Globulin (2.6-4.0) g/dL Albumin/Globulin Ratio (0.9-1.6) Lipase (73-393) U/L HCG, Qual (NEG) Meds: Medications Generic Name Dose Route Start Last Admin Trade Name Freq PRN Reason Stop Dose Admin Sodium Chloride 1,000 mls @ 999 mls/hr 08/20/21 00:40 08/20/21 00:51 Normal Saline IV 08/20/21 01:40 999 mls/hr .Bolus ONE Administration Discontinued Medications Generic Name Dose Route Start Last Admin Trade Name Freq PRN Reason Stop Dose Admin Morphine Sulfate 4 mg 08/20/21 00:40 08/20/21 00:55 Morphine 4 Mg/Ml Syringe IVPUSH 08/20/21 00:41 Not Given ONETIME ONE Morphine Sulfate 2 mg 08/20/21 00:45 08/20/21 00:52 Morphine 2 Mg/Ml Syringe IVPUSH 08/20/21 00:46 2 mg ONETIME ONE Administration Morphine Sulfate 2 mg 08/20/21 00:46 08/20/21 00:52 Morphine 2 Mg/Ml Syringe IVPUSH 08/20/21 00:47 2 mg ONETIME ONE Administration Ondansetron HCl 4 mg 08/20/21 00:40 08/20/21 00:51 Ondansetron 4 Mg/2 Ml Sdv IVPUSH 08/20/21 00:41 4 mg ONETIME ONE Administration - Re-Assessments/Exams Free Text/Narrative Re-Assessment/Exam: 08/20/21 00:44 We will get labs including ammonia. 08/20/21 01:25 Labs unremarkable. Will discharge patient home. Departure - Departure Time of Disposition: Disposition: Home, Self-Care 01 Condition: Good Clinical Impression: Abdominal pain Qualifiers: Abdominal location: generalized Qualified Code(s): R10.84 - Generalized abdominal pain - Discharge Information Instructions: Abdominal Pain, Adult Referrals: Carlin Mansfield MD [Primary Care Provider] - Forms: ED Department Discharge Additional Instructions: Your labs including your liver function test and ammonia level are normal. Please follow-up with your primary care physician. The following information is given to patients seen in the emergency department who are being discharged to home. This information is to outline your options for follow-up care. We provide all patients seen in our emergency department with a follow-up referral. The need for follow-up, as well as the timing and circumstances, are variable depending upon the specifics of your emergency department visit. If you don't have a primary care physician on staff, we will provide you with a referral. We always advise you to contact your personal physician following an emergency department visit to inform them of the circumstance of the visit and for follow-up with them and/or the need for any referrals to a consulting specialist. The emergency department will also refer you to a specialist when appropriate. This referral assures that you have the opportunity for follow-up care with a specialist. All of these measure are taken in an effort to provide you with optimal care, which includes your follow-up. Under all circumstances we always encourage you to contact your private physician who remains a resource for coordinating your care. When calling for follow-up care, please make the office aware that this follow-up is from your recent emergency room visit. If for any reason you are refused follow-up, please contact the [facility] Emergency Department at and asked to speak to the emergency department charge nurse. Please follow up with your primary care physician. If you do not have a primary care physician, see below: [facility] [address] [place] [address] [id number] [facility] [address] [place] [address] [facility] [address] [place] [id number] Sepsis Event Note (ED) - Evaluation Sepsis Screening Result: No Definite Risk - Focused Exam Vital Signs: Vital Signs Temp Pulse Resp BP Pulse Ox 08/20/21 00:20 96.8 F L 84 18 106/77 97 - My Orders Last 24 Hours: My Active Orders 08/20/21 00:40 Sodium Chloride 0.9% [Normal Saline] 1,000 ml IV .Bolus Saline Lock Insert [OM.PC] Stat - Assessment/Plan Last 24 Hours: My Active Orders 08/20/21 00:40 Sodium Chloride 0.9% [Normal Saline] 1,000 ml IV .Bolus Saline Lock Insert [OM.PC] Stat
[2021-08-20] MEDS ORDERED: Ondansetron 4 MG/2 ML SDV IVPUSH ONE (00:40)
[2021-08-20] MEDS ORDERED: Sodium Chloride 0.9% 1,000 ML IV ONE (00:40)
[2021-08-20] MEDS ORDERED: Morphine 4 MG/ML Syringe IVPUSH ONE (00:40)
[2021-08-20] MEDS ORDERED: Morphine 2 MG/ML SYRINGE IVPUSH ONE ×2 (00:45→00:46)
[2021-08-20 01:11] LABS: BLOOD UREA NITROGEN,BUN 10 mg/dL (7.0-18.0); CARBON DIOXIDE,CO2 26.2 mmol/L (21.0-32.0); CHLORIDE,CL 102 mmol/L (98-107); GLUCOSE RANDOM 94 mg/dL (74-106); LIPASE 63 U/L (73-393); POTASSIUM,K 3.7 mmol/L (3.5-5.1); SODIUM,NA 141 mmol/L (136-145)
[2021-08-20] MEDS ORDERED: oxyCODONE 5 MG Tab PO ONE (01:33)
== END 2021-08-20 01:43 | disposition home or self-care (01) ==
LOC: MW.ED 00:05
DX: R10.84 Generalized abdominal pain (principal); Z88.5 Allergy status to narcotic agent; Z86.16 Personal history of COVID-19
CPT/HCPCS: 36415; 80053; 82140; 83605; 83690; 83735; 84703; 85025; 96374; 96375; 99284; A9270; J2270; J2405; J7030

== ENCOUNTER 2021-09-20 16:22 | Emergency (ER) | payer BC, MEDICAID ==
[2021-09-20] MEDS ORDERED: Ondansetron 4 MG/2 ML SDV IVPUSH ONE (17:01)
[2021-09-20] MEDS ORDERED: Ketorolac 15 MG/ML SDV IVPUSH ONE (17:02)
[2021-09-20] MEDS ORDERED: fentaNYL 50 MCG/ML SDV IVPUSH ONE (17:07)
[2021-09-20] MEDS ORDERED: Lactated Ringers 1,000 ML IV SCH (17:15)
--- NOTE | 2021-09-20 17:17 | EDM.PDOC ---
ED HPI GENERAL MEDICAL PROBLEM - General Chief Complaint: Abdominal Pain Stated Complaint: LOWER RT SIDE PAIN Time Seen by Provider: 09/20/21 16:33 - History of Present Illness INITIAL COMMENTS - FREE TEXT/NARRATIVE: CHIEF COMPLAINT(S): Abdominal pain HISTORY OF PRESENT ILLNESS: This is a 36-year-old woman with a past medical history of prior alcohol use with development of cirrhosis on lactulose, pancreatitis who comes to the emergency department with a chief complaint of abdominal pain. The patient states that starting yesterday morning she started to experience sharp constant pain in her right lower quadrant. She denies any radiation of this pain. She states that she has associated nausea and vomiting which is nonbloody and nonbilious. She denies any increased diarrhe she denies any dysuria, hematuria, vaginal bleeding or vaginal discharge a. She denies any blood in her stool. She states that she has not tried anything at home and the pain is not relieved by anything. She denies any exacerbating symptoms. She denies any fever or chills. REVIEW OF SYSTEMS: Constitutional: Denies fever, chills. Eyes: Denies eye pain Ears, Nose, Mouth, & Throat: Denies earache Cardiovascular: Denies chest pain Respiratory: Denies shortness of breath Gastrointestinal: Positive for right lower quadrant abdominal pain, nausea, vomiting. Denies melena, hematochezia, hematemesis, bilious emesis Genitourinary: Denies hematuria, vaginal bleeding, vaginal discharge Skin:Denies a rash MSK: Denies joint pain Neurological: Denies blurred vision Psychiatric: Denies depression PAST MEDICAL HISTORY: As per history of present illness and as reviewed below otherwise noncontributory. SURGICAL HISTORY: As per history of present illness and as reviewed below otherwise noncontributory. SOCIAL HISTORY: As per history of present illness and as reviewed below otherwise noncontributory. FAMILY HISTORY: As per history of present illness and as reviewed below otherwise noncontributory. EXAMINATION OF ORGAN SYSTEMS/BODY AREAS: Constitutional: Blood pressure was 126/69, heart rate 115, respiratory rate 19 with an oxygen saturation of 100% on room air. Temperature 36.6 General: Young woman who does not appear to be in acute distress Psychiatric: Appropriate mood and affect. Eyes: No scleral icterus or conjunctival erythema ENMT: Moist mucous membranes. No pharyngeal erythema Cardiovascular: Regular, rate, and rhythm. No gallops, murmurs, or rubs. Bilateral upper extremity pulses symmetric and intact. No peripheral edema. No JVD. Respiratory: Lungs clear to auscultation bilaterally. No wheezes, rales, or rhonchi. Gastrointestinal: Soft, nondistended, tenderness to palpation in the right lower quadrant. No rebound or guarding. Genitourinary: No suprapubic tenderness no CVA tenderness Musculoskeletal: Normal range of motion. Skin: No lesions or abrasions. Neurological: Alert, GCS 15 MEDICAL DECISION MAKING AND COURSE IN THE ED WITH INTERPRETATION/REVIEW OF DIAGNOSTIC STUDIES: This is a 36-year-old man with a past medical history of prior alcohol use with resultant cirrhosis on lactulose who comes to the emergency department with acute onset right lower quadrant abdominal pain associated with nausea and vomiting who is tachycardic and afebrile. At this time I am concerned about the possibility of appendicitis. Will obtain labs including CBC, CMP, INR, lactic acid. We will provide the patient 1 L of lactated Ringer's bolus given the tachycardia and provide the patient with 50 mcg of fentanyl and 4 mg of IV Zofran for nausea. Will obtain a CT abdomen pelvis with contrast for further evaluation to evaluate for appendicitis. DDx: Appendicitis, nephrolithiasis Laboratory: CBC is unremarkable. INR is normal. CMP is unremarkable. Lactic acid is 2.1 which is just above normal. Urinalysis reveals leukocyte esterase with trace and 1+ bacteria. Interpretation: Positive. The radiological images were viewed by myself along with reading the report from the radiologist. CT abdomen pelvis does not reveal any evidence of appendicitis with moderate amount of constipation. Otherwise no abnormality. After imaging I did provide the patient with antibiotics by mouth. At this time the patient has already received 1 L of lactated Ringer's. No need to repeat lactic acid. I did discuss treatment at home. She was amenable to discharge and had no further questions. DISPOSITION: The patient was discharged home in stable condition. The patient will follow up with pcp within 3-5 days CONDITION: fair PROCEDURES: None FINAL IMPRESSION(S)/DIAGNOSES: 1. acute cystitis 2. Acute constipation Antony Chacon M.D. Right Lower Abdomen Pain Score (Numeric/FACES): 3 - Related Data Allergies Allergy/AdvReac Type Severity Reaction Status Date / Time codeine Allergy Nausea and Verified 09/20/21 16:27 Vomiting Home Meds: Home Meds Furosemide [Lasix] 20 mg PO DAILY tablet 11/17/20 [Rx] Spironolactone [Aldactone] 50 mg PO DAILY 12/10/20 [History] Folic Acid 1 tab PO DAILY 03/18/21 [History] Lactulose 10 gm PO DAILY PRN 08/03/21 [History] cephALEXin [Keflex] 500 mg PO BID #6 cap 09/20/21 [Rx] Past Medical History HEENT History: Reports: None Other HEENT History: Yellow sclera Cardiovascular History: Reports: None Respiratory History: Reports: Other (See Below) Other Respiratory History: Pluerisy Gastrointestinal History: Reports: Cirrhosis, Other (See Below) Other Gastrointestinal History: heartburn Genitourinary History: Reports: Other (See Below) Other Genitourinary History: yeast infection during [employer] History: Reports: Endometriosis, , Other (See Below) Other [employer] History: HPV treated at 15 y/o Musculoskeletal History: Reports: Back Pain, Chronic Other Musculoskeletal History: hx herniated disc in lower back Neurological History: Reports: None Psychiatric History: Reports: Anxiety Endocrine/Metabolic History: Reports: None Insulin Pump Model and Machine Set Up: None Hematologic History: Reports: None Immunologic History: Reports: None Oncologic (Cancer) History: Reports: Cervix Dermatologic History: Reports: None - Infectious Disease History Infectious Disease History: Reports: Chicken Pox, Influenza, Novel Coronavirus - Past Surgical History Head Surgeries/Procedures: Reports: None HEENT Surgical History: Reports: Oral Surgery, Other (See Below) Other HEENT Surgeries/Procedures: teeth removed at 26 years of age wears dent ures Respiratory Surgical History: Reports: None GI Surgical History: Reports: Cholecystectomy, Other (See Below) Other GI Surgeries/Procedures: Weekly paracentesis in [place] ended Oct 2020, Liver Biopsy Female Surgical History: Reports: None Musculoskeletal Surgical History: Reports: None Oncologic Surgical History: Reports: Other (See Below) Other Oncologic Surgeries/Procedures: LEEP Social & Family History - Family History Family Medical History: No Pertinent Family History HEENT: Reports: Cataract, Glaucoma, Impaired Vision Cardiac: Reports: CAD, High Cholesterol, Hypertension GI: Reports: Cholelithiasis, Hepatitis OBGYN: Reports: Endometriosis Musculoskeletal: Reports: Arthritis, Back pain, Chronic, Neck Pain, Chronic, Osteoarthritis, RA Neurological: Reports: Alzheimers Disease, Dementia, Parkinson's Psychiatric: Reports: ADD, ADHD, Anxiety, Depression, Emotional Problems, Learning Disability, Mood Swings, Panic Attack Endocrine/Metabolic: Reports: Diabetes, type II, Hyperthyroidism Oncologic: Reports: Leukemia - Tobacco Use Tobacco Use Status *Q: Former Tobacco User Used Tobacco, but Quit: Yes Month/Year Tobacco Last Used: 05/2021 - Caffeine Use Caffeine Use: Reports: None - Recreational Drug Use Recreational Drug Use: No ED ROS GENERAL - Review of Systems Review Of Systems: See Below ED EXAM, GENERAL - Physical Exam Exam: See Below Course - Vital Signs Last Recorded V/S: Last Vital Signs Temp 36.3 C 09/20/21 19:45 Pulse 83 09/20/21 19:45 Resp 18 09/20/21 19:45 BP 110/70 09/20/21 19:45 Pulse Ox 97 09/20/21 19:45 - Orders/Labs/Meds Labs: Laboratory Tests 09/20/21 09/20/21 09/20/21 Range/Units 17:35 17:35 17:35 WBC 7.01 (4.0-11.0) K/uL RBC 4.66 (4.30-5.90) M/uL Hgb 14.6 (12.0-16.0) g/dL Hct 43.5 (36.0-46.0) % MCV 93.3 (80.0-98.0) fL MCH 31.3 (27.0-32.0) pg MCHC 33.6 (31.0-37.0) g/dL RDW Std Deviation 50.7 (28.0-62.0) fl RDW Coeff of Blue 15 (11.0-15.0) % Plt Count 312 (150-400) K/uL MPV 11.00 (7.40-12.00) fL Neut % (Auto) 59.2 (48.0-80.0) % Lymph % (Auto) 30.4 (16.0-40.0) % [place] % (Auto) 8.1 (0.0-15.0) % Eos % (Auto) 1.4 (0.0-7.0) % Baso % (Auto) 0.9 (0.0-1.5) % Neut # (Auto) 4.2 (1.4-5.7) K/uL Lymph # (Auto) 2.1 (0.6-2.4) K/uL [place] # (Auto) 0.6 (0.0-0.8) K/uL Eos # (Auto) 0.1 (0.0-0.7) K/uL Baso # (Auto) 0.1 (0.0-0.1) K/uL Nucleated RBC % 0.0 /100WBC Nucleated RBCs # 0 K/uL INR 0.98 Sodium 139 (136-145) mmol/L Potassium 4.4 (3.5-5.1) mmol/L Chloride 102 (98-107) mmol/L Carbon Dioxide 28.3 (21.0-32.0) mmol/L BUN 14 (7.0-18.0) mg/dL Creatinine 0.7 (0.6-1.0) mg/dL Est Cr Clr Drug Dosing TNP Estimated GFR (MDRD) > 60.0 ml/min Glucose 102 (74-106) mg/dL Lactic Acid (0.4-2.0) mmol/L Calcium 9.6 (8.5-10.1) mg/dL Total Bilirubin 0.4 (0.2-1.0) mg/dL AST 15 (15-37) IU/L ALT 23 (14-63) IU/L Alkaline Phosphatase 105 (46-116) U/L Total Protein 8.1 (6.4-8.2) g/dL Albumin 3.6 (3.4-5.0) g/dL Globulin 4.5 H (2.6-4.0) g/dL Albumin/Globulin Ratio 0.8 L (0.9-1.6) Urine Color Urine Appearance Urine pH (5.0-8.0) Ur Specific [place] (1.001-1.035) Urine Protein (NEGATIVE) mg/dL Urine Glucose (UA) (NEGATIVE) mg/dL Urine Ketones (NEGATIVE) mg/dL Urine Occult Blood (NEGATIVE) Urine Nitrite (NEGATIVE) Urine Bilirubin (NEGATIVE) Urine Urobilinogen (<2.0) EU/dL Ur Leukocyte Esterase (NEGATIVE) Urine RBC (0-2/HPF) Urine WBC (0-5/HPF) Ur Epithelial Cells (NONE-FEW) Amorphous Sediment (NEGATIVE) Urine Bacteria (NEGATIVE) 09/20/21 09/20/21 Range/Units 18:04 18:53 WBC (4.0-11.0) K/uL RBC (4.30-5.90) M/uL Hgb (12.0-16.0) g/dL Hct (36.0-46.0) % MCV (80.0-98.0) fL MCH (27.0-32.0) pg MCHC (31.0-37.0) g/dL RDW Std Deviation (28.0-62.0) fl RDW Coeff of Blue (11.0-15.0) % Plt Count (150-400) K/uL MPV (7.40-12.00) fL Neut % (Auto) (48.0-80.0) % Lymph % (Auto) (16.0-40.0) % [place] % (Auto) (0.0-15.0) % Eos % (Auto) (0.0-7.0) % Baso % (Auto) (0.0-1.5) % Neut # (Auto) (1.4-5.7) K/uL Lymph # (Auto) (0.6-2.4) K/uL [place] # (Auto) (0.0-0.8) K/uL Eos # (Auto) (0.0-0.7) K/uL Baso # (Auto) (0.0-0.1) K/uL Nucleated RBC % /100WBC Nucleated RBCs # K/uL INR Sodium (136-145) mmol/L Potassium (3.5-5.1) mmol/L Chloride (98-107) mmol/L Carbon Dioxide (21.0-32.0) mmol/L BUN (7.0-18.0) mg/dL Creatinine (0.6-1.0) mg/dL Est Cr Clr Drug Dosing Estimated GFR (MDRD) ml/min Glucose (74-106) mg/dL Lactic Acid 2.1 H* (0.4-2.0) mmol/L Calcium (8.5-10.1) mg/dL Total Bilirubin (0.2-1.0) mg/dL AST (15-37) IU/L ALT (14-63) IU/L Alkaline Phosphatase (46-116) U/L Total Protein (6.4-8.2) g/dL Albumin (3.4-5.0) g/dL Globulin (2.6-4.0) g/dL Albumin/Globulin Ratio (0.9-1.6) Urine Color YELLOW Urine Appearance SLT CLOUDY Urine pH 7.5 (5.0-8.0) Ur Specific [place] 1.015 (1.001-1.035) Urine Protein NEGATIVE (NEGATIVE) mg/dL Urine Glucose (UA) NEGATIVE (NEGATIVE) mg/dL Urine Ketones NEGATIVE (NEGATIVE) mg/dL Urine Occult Blood NEGATIVE (NEGATIVE) Urine Nitrite NEGATIVE (NEGATIVE) Urine Bilirubin NEGATIVE (NEGATIVE) Urine Urobilinogen 0.2 (<2.0) EU/dL Ur Leukocyte Esterase TRACE H (NEGATIVE) Urine RBC 0-2 (0-2/HPF) Urine WBC 0-3 (0-5/HPF) Ur Epithelial Cells FEW (NONE-FEW) Amorphous Sediment LIGHT (NEGATIVE) Urine Bacteria 1+ H (NEGATIVE) Meds: Medications Discontinued Medications Generic Name Dose Route Start Last Admin Trade Name Galoq PRN Reason Stop Dose Admin Cephalexin 500 mg 09/20/21 18:35 09/20/21 19:36 Cephalexin 500 Mg Cap PO 09/20/21 18:36 500 mg ONETIME ONE Administration Fentanyl 50 mcg 09/20/21 17:07 09/20/21 18:11 Fentanyl 50 Mcg/Ml Sdv IVPUSH 09/20/21 17:08 50 mcg ONETIME ONE Administration Lactated Ringer's 1,000 mls @ 999 mls/hr 09/20/21 17:15 09/20/21 18:28 Ringers, Lactated IV 999 mls/hr ASDIRECTED DENISE Administration Iopamidol 100 ml 09/20/21 19:00 09/20/21 19:00 Iopamidol 755 Mg/Ml 500 Ml Multipack Bottle IVPUSH 09/20/21 19:01 100 ml ONETIME ONE Administration Ketorolac Tromethamine 15 mg 09/20/21 17:02 09/20/21 18:15 Ketorolac 15 Mg/Ml Sdv IVPUSH 09/20/21 17:03 Not Given ONETIME ONE Ondansetron HCl 4 mg 09/20/21 17:01 09/20/21 18:11 Ondansetron 4 Mg/2 Ml Sdv IVPUSH 09/20/21 17:02 4 mg ONETIME ONE Administration Departure - Departure Time of Disposition: 19:38 Disposition: Home, Self-Care 01 Condition: Fair Clinical Impression: Constipation UTI (urinary tract infection) Qualifiers: Urinary tract infection type: acute cystitis Hematuria presence: with hematuria Qualified Code(s): N30.01 - Acute cystitis with hematuria - Discharge Information *PRESCRIPTION DRUG MONITORING PROGRAM REVIEWED*: No *COPY OF PRESCRIPTION DRUG MONITORING REPORT IN PATIENT TATE: No Prescriptions: cephALEXin [Keflex] 500 mg PO BID #6 cap Instructions: Constipation, Adult, Urinary Tract Infection, Adult Referrals: Carlin Mansfield MD [Primary Care Provider] - Forms: ED Department Discharge Additional Instructions: You were evaluated today on an emergent basis. At this time your CT did not reveal any evidence of appendicitis. I do believe your symptoms are secondary to constipation given the CT findings. I recommend that you use the magnesium citrate that we provided with you and to continue with your lactulose at home. Please maintain adequate hydration. In addition your urine did show some evidence of infection therefore I recommend you take the medication as prescribed until all antibiotics are gone. If you have any worsening symptoms please return to the emergency department otherwise follow-up with your primary care physician within 3 to 5 days. Your prescription was sent to [facility] [address] [place] [address] [place] [address] The patient is informed of any results of their evaluation and diagnostic workup and all questions are answered. They are given discharge instructions and return precautions. The patient is stable for discharge. The patient states they understand and agree with the plan and that they will return if their symptoms get worse or if they have any new concerns. The following information is given to patients seen in the emergency department who are being discharged to home. This information is to outline your options for follow-up care. We provide all patients seen in our emergency department with a follow-up referral. The need for follow-up, as well as the timing and circumstances, are variable depending upon the specifics of your emergency department visit. If you don't have a primary care physician on staff, we will provide you with a referral. We always advise you to contact your personal physician following an emergency department visit to inform them of the circumstance of the visit and for follow-up with them and/or the need for any referrals to a consulting specialist. The emergency department will also refer you to a specialist when appropriate. This referral assures that you have the opportunity for follow-up care with a specialist. All of these measure are taken in an effort to provide you with optimal care, which includes your follow-up. Under all circumstances we always encourage you to contact your private ysician who remains a resource for coordinating your care. When calling for follow-up care, please make the office aware that this follow-up is from your recent emergency room visit. If for any reason you are refused follow-up, please contact the [facility] Emergency Department at and asked to speak to the emergency department charge nurse. Sepsis Event Note (ED) - Evaluation Sepsis Screening Result: No Definite Risk
[2021-09-20 18:02] LABS: BLOOD UREA NITROGEN,BUN 14 mg/dL (7.0-18.0); CARBON DIOXIDE,CO2 28.3 mmol/L (21.0-32.0); CHLORIDE,CL 102 mmol/L (98-107); GLUCOSE RANDOM 102 mg/dL (74-106); POTASSIUM,K 4.4 mmol/L (3.5-5.1); SODIUM,NA 139 mmol/L (136-145)
--- NOTE | 2021-09-20 18:30 | CT ---
Indication: RLQ pain, r/o appendicitis Technique: Postcontrast CT abdomen and pelvis. 100 cc Isovue 370 intravenous contrast. Please note that all CT scans at this facility use dose modulation, iterative reconstruction, and/or weight-based dosing when appropriate to reduce radiation dose to as low as reasonably achievable. Comparison: 08/03/2021 Findings: Lung bases clear. No pleural effusion or infiltrate. The liver is normal. The gallbladder is absent. Normal adrenal glands and kidneys. Normal spleen and pancreas. No adenopathy, free air or free fluid. Increased stool located throughout the colon particularly within the right side of the abdomen. The appendix is well visualized and appears normal. The bladder is unremarkable. Normal ovaries. Incidental simple left ovarian cyst measuring 1.5 cm. No large uterine fibroid. Osseous structures are within normal limits. Impression: Normal CT appendix. Resolved postoperative seroma from gallbladder surgery. Increased colonic stool consistent with constipation, likely the cause of the patient`s symptoms. Please note that all CT scans at this facility use dose modulation, iterative reconstruction, and/or weight-based dosing when appropriate to reduce radiation dose to as low as reasonably achievable. Dictated by Garrett Bowles MD @ 09/20/2021 6:27:35 PM (Electronically Signed)
[2021-09-20] MEDS ORDERED: Cephalexin 500 MG Cap PO ONE (18:35)
[2021-09-20] MEDS ORDERED: Iopamidol 755 MG/ML 500 ML Multipack Bottle IVPUSH ONE (19:00)
== END 2021-09-20 19:45 | disposition home or self-care (01) ==
LOC: MW.ED 16:22
DX: N30.01 Acute cystitis with hematuria (principal); K59.00 Constipation, unspecified; Z88.5 Allergy status to narcotic agent
CPT/HCPCS: 36415; 74177; 80053; 81001; 83605; 85025; 85610; 87086; 96374; 96375; 99284; A9270; J2405; J3010; J7120; Q9967

== ENCOUNTER 2021-09-27 14:21 | Emergency (ER) | payer MEDICAID, OTHER ==
[2021-09-27] MEDS ORDERED: Cyclobenzaprine 10 MG Tab PO ONE (14:37)
[2021-09-27] MEDS ORDERED: Ondansetron 4 MG Tab.DIS PO ONE (14:45)
--- NOTE | 2021-09-27 14:47 | EDM.PDOC ---
ED HPI GENERAL MEDICAL PROBLEM - General Chief Complaint: Abdominal Pain Stated Complaint: lower abdominal pain Time Seen by Provider: 09/27/21 14:22 Source of Information: Reports: Patient History Limitations: Reports: No Limitations - History of Present Illness INITIAL COMMENTS - FREE TEXT/NARRATIVE: HISTORY AND PHYSICAL: History of present illness: The patient is a 36-year-old female with a history of abdominal pain and pancreatitis. The patient presents to the emergency department with complaints of left lower quad sharp pain, right lower quad dull pain that extends around into a "C" shape pain, extending to right upper quad that darted last night. The patient states that she also had nausea associated with this for which she took Zofran at 9 PM last night. The patient states her nausea resolved but she does have some mild nausea at this time. The patient denies any vomiting. The denies dysuria or any urinary symptoms. The patient denies any diarrhea. Patient has a history of chronic abdominal pain and states this pain is different than her previous pain. Review of systems: As per history of present illness and below otherwise all systems reviewed and negative. Past medical history: As per history of present illness and as reviewed below otherwise noncontributory. Surgical history: As per history of present illness and as reviewed below otherwise noncontributory. Social history: See social history for further information Family history: As per history of present illness and as reviewed below otherwise noncontributory. Physical exam: General: Well developed and well nourished. Alert and orientated x 3. Nontoxic in appearance and in no acute distress. Vital signs are stable and have been reviewed by me. Nursing notes were reviewed. HEENT: Atraumatic, normocephalic, pupils equal and reactive bilaterally, negative for conjunctival pallor or scleral icterus, mucous membranes moist, TMs normal bilaterally, throat clear, neck supple, nontender, trachea midline. No drooling or trismus noted. No meningeal signs. No hot potato voice noted. Lungs: Clear to auscultation bilaterally. No wheezes, rales, or rhonchi. Chest nontender. Normal work of breathing, no accessory muscles used. Heart: S1S2, regular rate and rhythm without overt murmur, gallops, or rubs. No JVD. No peripheral edema Abdomen: Soft, nondistended, generalized tenderness. Normoactive bowel sounds. Positive bilateral costovertebral tenderness. Skin: Intact, warm, dry. No lesions or rashes noted. Hematologic: No petechiae or purpra. Mucosa appropriate color and normal nail bed color and refill. Extremities: Atraumatic, moves all extremities per self without difficulty or deficits, negative for cords or calf pain. Neurovascular unremarkable. Neuro: Awake, alert, oriented. Cranial nerves II through XII unremarkable. Cerebellum unremarkable. Motor and sensory unremarkable throughout. Exam nonfocal. Psychiatric: Mood and affect are appropriate. Normal thought process. Answering questions appropriately. Notes: *This patient was seen and evaluated during the 2019 SARS-CoV-2 novel coronavirus pandemic period. Community viral transmission is ongoing at time of this encounter and the emergency department is operating under pandemic response procedures. As stated above the patient is a 36-year-old female who presents to the emergency department with abdominal pain. The patient has chronic abdominal pain but states this is unlike her other pain. I will order an abdominal work- up to include a CT of the abdomen pelvis without contrast as the patient has CVA tenderness. I will treat the patient's nausea with Zofran and her pain with Toradol. Patient's CBC, CMP and urinalysis is unremarkable. Abdominal/pelvis CT Impression: No acute findings of the abdomen or pelvis. A moderate to large amount of stool is identified within the colon. Discussed the findings with patient and she does not understand how she could have a moderate to large amount of stool in the colon as she takes lactulose and has been doing her best to keep her stools normal. I explained to the patient that as I can see no explanation for her abdominal pain she is safe to go home and follow-up with her primary care and her pain management team. I have talked with the patient about today's findings, in addition to providing specific details for plan of care. Reassessment at the time of disposition demonstrates that the patient is in no acute distress. The patient is stable for discharge, counseling was provided and we discussed in great detail signs and symptoms that would prompt them to return to the Emergency Department. Medication, follow up and supportive care measures were reviewed and discussed. Voices understanding and is agreeable to plan of care. Denies any further questions or concerns at this time. Diagnostics: CBC, CMP, UA, abdomen/pelvis CT without contrast Therapeutics: Zofran, Toradol Impression: Abdominal pain Plan: 1. You were evaluated today on an emergent basis. Your C-shaped abdominal pain that starts on the left and extends up to the right of your abdomen was evaluated with a blood work your CBC was normal and your chemistry set was normal. Your urinalysis was normal there was no infection. Your CT of your abdomen showed a moderate to large amount of stool within the colon. Otherwise there was no acute findings on your abdomen. I would suggest that you continue to work with your primary care and pain management staff to manage your chronic abdominal pain. 2. You can alternate Tylenol and ibuprofen as needed for pain and fever management. 3. We encourage you to follow up with your primary care provider and/or recommended specialist in the next few days for re-evaluation and further care/management. 4. If your symptoms should worsen, new symptoms develop or any of the signs and symptoms we discussed should arise please return to the emergency room or call 911 (if needed). Definitive disposition and diagnosis as appropriate pending reevaluation and review of above. right abd Pain Score (Numeric/FACES): 7 - Related Data Allergies Allergy/AdvReac Type Severity Reaction Status Date / Time codeine Allergy Nausea and Verified 09/20/21 16:27 Vomiting Home Meds: Home Meds Furosemide [Lasix] 20 mg PO DAILY tablet 11/17/20 [Rx] Spironolactone [Aldactone] 50 mg PO DAILY 12/10/20 [History] Folic Acid 1 tab PO DAILY 03/18/21 [History] Lactulose 10 gm PO DAILY PRN 08/03/21 [History] cephALEXin [Keflex] 500 mg PO BID #6 cap 09/20/21 [Rx] Past Medical History HEENT History: Reports: None Other HEENT History: Yellow sclera Cardiovascular History: Reports: None Respiratory History: Reports: Other (See Below) Other Respiratory History: Pluerisy Gastrointestinal History: Reports: Cirrhosis, Other (See Below) Other Gastrointestinal History: heartburn Genitourinary History: Reports: Other (See Below) Other Genitourinary History: yeast infection during HEALTH PLAN ADVISOR History: Reports: Endometriosis, , Other (See Below) Other HEALTH PLAN ADVISOR History: HPV treated at 15 y/o Musculoskeletal History: Reports: Back Pain, Chronic Other Musculoskeletal History: hx herniated disc in lower back Neurological History: Reports: None Psychiatric History: Reports: Anxiety Endocrine/Metabolic History: Reports: None Insulin Pump Model and Claim Technician: None Hematologic History: Reports: None Immunologic History: Reports: None Oncologic (Cancer) History: Reports: Cervix Dermatologic History: Reports: None - Infectious Disease History Infectious Disease History: Reports: Chicken Pox, Influenza, Novel Coronavirus - Past Surgical History Head Surgeries/Procedures: Reports: None HEENT Surgical History: Reports: Oral Surgery, Other (See Below) Other HEENT Surgeries/Procedures: teeth removed at 26 years of age wears dent ures Respiratory Surgical History: Reports: None GI Surgical History: Reports: Cholecystectomy, Other (See Below) Other GI Surgeries/Procedures: Weekly paracentesis in [facility] ended Oct 2020, Liver Biopsy Female Surgical History: Reports: None Musculoskeletal Surgical History: Reports: None Oncologic Surgical History: Reports: Other (See Below) Other Oncologic Surgeries/Procedures: LEEP Social & Family History - Family History Family Medical History: No Pertinent Family History HEENT: Reports: Cataract, Glaucoma, Impaired Vision Cardiac: Reports: CAD, High Cholesterol, Hypertension GI: Reports: Cholelithiasis, Hepatitis OBGYN: Reports: Endometriosis Musculoskeletal: Reports: Arthritis, Back pain, Chronic, Neck Pain, Chronic, Osteoarthritis, RA Neurological: Reports: Alzheimers Disease, Dementia, Parkinson's Psychiatric: Reports: ADD, ADHD, Anxiety, Depression, Emotional Problems, Learning Disability, Mood Swings, Panic Attack Endocrine/Metabolic: Reports: Diabetes, type II, Hyperthyroidism Oncologic: Reports: Leukemia - Caffeine Use Caffeine Use: Reports: None ED ROS GENERAL - Review of Systems Review Of Systems: Comprehensive ROS is negative, except as noted in HPI. ED EXAM, GI/ABD - Physical Exam Exam: See Below (See dictation) Course - Vital Signs Last Recorded V/S: Last Vital Signs Temp 97.8 F 09/27/21 14:31 Pulse 94 09/27/21 16:32 Resp 18 09/27/21 16:32 BP 90/62 09/27/21 16:32 Pulse Ox 98 09/27/21 16:32 - Orders/Labs/Meds Labs: Laboratory Tests 09/27/21 09/27/21 09/27/21 Range/Units 14:41 14:58 14:58 WBC 4.36 (4.0-11.0) K/uL RBC 3.65 L (4.30-5.90) M/uL Hgb 11.7 L (12.0-16.0) g/dL Hct 34.4 L (36.0-46.0) % MCV 94.2 (80.0-98.0) fL MCH 32.1 H (27.0-32.0) pg MCHC 34.0 (31.0-37.0) g/dL RDW Std Deviation 50.2 (28.0-62.0) fl RDW Coeff of Blue 15 (11.0-15.0) % Plt Count 247 (150-400) K/uL MPV 10.90 (7.40-12.00) fL Neut % (Auto) 63.3 (48.0-80.0) % Lymph % (Auto) 28.7 (16.0-40.0) % [place] % (Auto) 4.1 (0.0-15.0) % Eos % (Auto) 2.5 (0.0-7.0) % Baso % (Auto) 1.4 (0.0-1.5) % Neut # (Auto) 2.8 (1.4-5.7) K/uL Lymph # (Auto) 1.3 (0.6-2.4) K/uL [place] # (Auto) 0.2 (0.0-0.8) K/uL Eos # (Auto) 0.1 (0.0-0.7) K/uL Baso # (Auto) 0.1 (0.0-0.1) K/uL Nucleated RBC % 0.0 /100WBC Nucleated RBCs # 0 K/uL Sodium 144 (136-145) mmol/L Potassium 4.0 (3.5-5.1) mmol/L Chloride 107 (98-107) mmol/L Carbon Dioxide 29.5 (21.0-32.0) mmol/L BUN 10 (7.0-18.0) mg/dL Creatinine 0.7 (0.6-1.0) mg/dL Est Cr Clr Drug Dosing 87.03 mL/min Estimated GFR (MDRD) > 60.0 ml/min Glucose 93 (74-106) mg/dL Calcium 8.7 (8.5-10.1) mg/dL Total Bilirubin 0.4 (0.2-1.0) mg/dL AST 18 (15-37) IU/L ALT 20 (14-63) IU/L Alkaline Phosphatase 78 (46-116) U/L Total Protein 6.7 (6.4-8.2) g/dL Albumin 3.1 L (3.4-5.0) g/dL Globulin 3.6 (2.6-4.0) g/dL Albumin/Globulin Ratio 0.9 (0.9-1.6) Urine Color YELLOW Urine Appearance CLEAR Urine pH 7.0 (5.0-8.0) Ur Specific [place] 1.020 (1.001-1.035) Urine Protein NEGATIVE (NEGATIVE) mg/dL Urine Glucose (UA) NEGATIVE (NEGATIVE) mg/dL Urine Ketones NEGATIVE (NEGATIVE) mg/dL Urine Occult Blood TRACE-INTACT H (NEGATIVE) Urine Nitrite NEGATIVE (NEGATIVE) Urine Bilirubin NEGATIVE (NEGATIVE) Urine Urobilinogen 0.2 (<2.0) EU/dL Ur Leukocyte Esterase NEGATIVE (NEGATIVE) Urine RBC 0-2 (0-2/HPF) Urine WBC 0-2 (0-5/HPF) Ur Epithelial Cells FEW (NONE-FEW) Urine Bacteria FEW (NEGATIVE) Urine Mucus LIGHT (NONE-MOD) Meds: Medications Discontinued Medications Generic Name Dose Route Start Last Admin Trade Name Freq PRN Reason Stop Dose Admin Cyclobenzaprine HCl 10 mg 09/27/21 14:37 Cyclobenzaprine 10 Mg Tab PO 09/27/21 14:38 ONETIME ONE Ketorolac Tromethamine 60 mg 09/27/21 14:53 09/27/21 15:24 Ketorolac 60 Mg/2 Ml Sdv IM 09/27/21 14:54 60 mg ONETIME ONE Administration Ondansetron HCl 4 mg 09/27/21 14:45 09/27/21 14:50 Ondansetron 4 Mg Tab.Dis PO 09/27/21 14:46 4 mg ONETIME ONE Administration Departure - Departure Time of Disposition: 16:14 Disposition: Home, Self-Care 01 Clinical Impression: Abdominal pain Qualifiers: Abdominal location: generalized Qualified Code(s): R10.84 - Generalized abdominal pain - Discharge Information *PRESCRIPTION DRUG MONITORING PROGRAM REVIEWED*: No *COPY OF PRESCRIPTION DRUG MONITORING REPORT IN PATIENT TATE: No Instructions: Abdominal Pain, Adult, [id number] Referrals: Carlin Mansfield MD [Primary Care Provider] - Forms: ED Department Discharge Additional Instructions: The following information is given to patients seen in the emergency department who are being discharged to home. This information is to outline your options for follow-up care. We provide all patients seen in our emergency department with a follow-up referral. The need for follow-up, as well as the timing and circumstances, are variable depending upon the specifics of your emergency department visit. If you don't have a primary care physician on staff, we will provide you with a referral. We always advise you to contact your personal physician following an emergency department visit to inform them of the circumstance of the visit and for follow-up with them and/or the need for any referrals to a consulting specialist. The emergency department will also refer you to a specialist when appropriate. This referral assures that you have the opportunity for follow-up care with a specialist. All of these measure are taken in an effort to provide you with optimal care, which includes your follow-up. Under all circumstances we always encourage you to contact your private physician who remains a resource for coordinating your care. When calling for follow-up care, please make the office aware that this follow-up is from your recent emergency room visit. If for any reason you are refused follow-up, please contact the [facility] Emergency Department at and asked to speak to the emergency department charge nurse. [facility] - Primary [facility] [address] [place] [id number] [place] [address] Plan: 1. You were evaluated today on an emergent basis. Your C-shaped abdominal pain that starts on the left and extends up to the right of your abdomen was evaluated with a blood work your CBC was normal and your chemistry set was normal. Your urinalysis was normal there was no infection. Your CT of your abdomen showed a moderate to large amount of stool within the colon. Otherwise there was no acute findings on your abdomen. I would suggest that you continue to work with your primary care and pain management staff to manage your chronic abdominal pain. 2. You can alternate Tylenol and ibuprofen as needed for pain and fever management. 3. We encourage you to follow up with your primary care provider and/or recommended specialist in the next few days for re-evaluation and further care/management. 4. If your symptoms should worsen, new symptoms develop or any of the signs and symptoms we discussed should arise please return to the emergency room or call 911 (if needed). Sepsis Event Note (ED) - Evaluation Sepsis Screening Result: No Definite Risk - Focused Exam Vital Signs: Vital Signs Temp Pulse Resp BP Pulse Ox 09/27/21 16:32 94 18 90/62 98 09/27/21 15:51 104 H 16 107/67 100 09/27/21 15:08 98 16 100/57 L 100 09/27/21 14:31 97.8 F 107 H 16 102/49 L 100
[2021-09-27] MEDS ORDERED: Ketorolac 60 MG/2 ML SDV IM ONE (14:53)
[2021-09-27 15:27] LABS: BLOOD UREA NITROGEN,BUN 10 mg/dL (7.0-18.0); CARBON DIOXIDE,CO2 29.5 mmol/L (21.0-32.0); CHLORIDE,CL 107 mmol/L (98-107); GLUCOSE RANDOM 93 mg/dL (74-106); SODIUM,NA 144 mmol/L (136-145)
--- NOTE | 2021-09-27 16:10 | CT ---
Indication: Abdominal pain. Technique: Multiple contiguous axial images were obtained from the lung bases through the symphysis pubis without intravenous contrast enhancement. Please note that all CT scans at this facility use dose modulation, iterative reconstruction, and/or weight-based dosing when appropriate to reduce radiation dose to as low as reasonably achievable. Comparison: September 20, 2021. Findings: The lung bases are clear. No infiltrate, pleural effusion, or pneumothorax is identified. The heart is normal in size. No pericardial effusion is identified. The visualized portions of the unenhanced liver, spleen, pancreas, adrenals, and kidneys are normal. No hydronephrosis is identified. Postsurgical changes of the cholecystectomy are identified. A small fat containing umbilical hernia is identified. The small and large bowel are normal in caliber. The appendix is normal in size. No periappendiceal fat stranding or fluid collections are identified. A moderate to large amount of stool is identified within the colon. No free fluid or free air is identified within the abdomen or pelvis. The aorta is normal in caliber. No lytic or blastic lesions of the spine are identified. In the pelvis, the uterus is normal. The urinary bladder is normal. Impression: No acute findings of the abdomen or pelvis. Please note that all CT scans at this facility use dose modulation, iterative reconstruction, and/or weight-based dosing when appropriate to reduce radiation dose to as low as reasonably achievable. Dictated by Steph Spear MD @ 09/27/2021 4:09:33 PM (Electronically Signed)
== END 2021-09-27 16:34 | disposition home or self-care (01) ==
LOC: MW.ED 14:21
DX: R10.84 Generalized abdominal pain (principal); Z88.5 Allergy status to narcotic agent; Z86.16 Personal history of COVID-19
CPT/HCPCS: 36415; 74176; 80053; 81001; 85025; 96372; 99284; A9270; J1885

== ENCOUNTER 2021-10-09 20:38 | Emergency (ER) | payer MEDICAID, OTHER ==
[2021-10-09] MEDS ORDERED: HYDROmorphone 1 MG/ML Syringe IM ONE (21:14)
--- NOTE | 2021-10-09 21:15 | EDM.PDOC ---
ED HPI GENERAL MEDICAL PROBLEM - General Chief Complaint: Lower Extremity Injury/Pain Stated Complaint: SLIPPED ON ICE Time Seen by Provider: 10/09/21 21:01 Source of Information: Reports: Patient History Limitations: Reports: No Limitations - History of Present Illness INITIAL COMMENTS - FREE TEXT/NARRATIVE: Patient is a 36-year-old female history of liver cirrhosis presents today for right-sided rib pain after trip and fall. Patient that she slipped on ice and landed on her right side on a metal pole. She has had pain over her ribs and hurts when she takes deep breath is nonradiating she has not taken medication for. She also has some right hip pain as well as able to ambulate. She denies any other injuries. R ribs Pain Score (Numeric/FACES): 9 - Related Data Allergies Allergy/AdvReac Type Severity Reaction Status Date / Time codeine Allergy Nausea and Verified 10/09/21 21:06 Vomiting Home Meds: Home Meds Furosemide [Lasix] 20 mg PO DAILY tablet 11/17/20 [Rx] Spironolactone [Aldactone] 50 mg PO DAILY 12/10/20 [History] Folic Acid 1 tab PO DAILY 03/18/21 [History] Lactulose 10 gm PO DAILY PRN 08/03/21 [History] Past Medical History HEENT History: Reports: None Other HEENT History: Yellow sclera Cardiovascular History: Reports: None Respiratory History: Reports: Other (See Below) Other Respiratory History: Pluerisy Gastrointestinal History: Reports: Cirrhosis, Other (See Below) Other Gastrointestinal History: heartburn Genitourinary History: Reports: Other (See Below) Other Genitourinary History: yeast infection during FEATHER TRIMMER History: Reports: Endometriosis, , Other (See Below) Other FEATHER TRIMMER History: HPV treated at 15 y/o Musculoskeletal History: Reports: Back Pain, Chronic Other Musculoskeletal History: hx herniated disc in lower back Neurological History: Reports: None Psychiatric History: Reports: Anxiety Endocrine/Metabolic History: Reports: None 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 Hematologic History: Reports: None Immunologic History: Reports: None Oncologic (Cancer) History: Reports: Cervix Dermatologic History: Reports: None - Infectious Disease History Infectious Disease History: Reports: Chicken Pox, Influenza, Novel Coronavirus - Past Surgical History Head Surgeries/Procedures: Reports: None HEENT Surgical History: Reports: Oral Surgery, Other (See Below) Other HEENT Surgeries/Procedures: teeth removed at 26 years of age wears dentures Respiratory Surgical History: Reports: None GI Surgical History: Reports: Cholecystectomy, Other (See Below) Other GI Surgeries/Procedures: Weekly paracentesis in [facility] ended Oct 2020, Liver Biopsy Female Surgical History: Reports: None Musculoskeletal Surgical History: Reports: None Oncologic Surgical History: Reports: Other (See Below) Other Oncologic Surgeries/Procedures: LEEP Social & Family History - Family History Family Medical History: No Pertinent Family History HEENT: Reports: Cataract, Glaucoma, Impaired Vision Cardiac: Reports: CAD, High Cholesterol, Hypertension GI: Reports: Cholelithiasis, Hepatitis OBGYN: Reports: Endometriosis Musculoskeletal: Reports: Arthritis, Back pain, Chronic, Neck Pain, Chronic, Osteoarthritis, RA Neurological: Reports: Alzheimers Disease, Dementia, Parkinson's Psychiatric: Reports: ADD, ADHD, Anxiety, Depression, Emotional Problems, Learning Disability, Mood Swings, Panic Attack Endocrine/Metabolic: Reports: Diabetes, type II, Hyperthyroidism Oncologic: Reports: Leukemia - Tobacco Use Tobacco Use Status *Q: Never Tobacco User - Caffeine Use Caffeine Use: Reports: Soda - Recreational Drug Use Recreational Drug Use: No Review of Systems - Review of Systems Review Of Systems: See Below Constitutional: Reports: No Symptoms Eyes: Reports: No Symptoms Ears: Reports: No Symptoms Nose: Reports: No Symptoms Mouth/Throat: Reports: No Symptoms Respiratory: Reports: No Symptoms Cardiovascular: Reports: Other (rib pain ) GI/Abdominal: Reports: No Symptoms Genitourinary: Reports: No Symptoms Musculoskeletal: Reports: No Symptoms Skin: Reports: No Symptoms Neurological: Reports: No Symptoms Psychiatric: Reports: No Symptoms ED EXAM, GENERAL - Physical Exam Exam: See Below Exam Limited By: No Limitations General Appearance: Alert, WD/WN, No Apparent Distress Eye Exam: Bilateral Eye: EOMI Head: Atraumatic Neck: Normal Inspection, Supple, Non-Tender Respiratory/Chest: No Respiratory Distress, Lungs Clear, Normal Breath Sounds Cardiovascular: Normal Peripheral Pulses, Regular Rate, Rhythm GI/Abdominal: Normal Bowel Sounds, Soft, Non-Tender Back Exam: Normal Inspection, Full Range of Motion Extremities: Normal Inspection, Normal Range of Motion, Non-Tender Neurological: Alert, Oriented Course - Vital Signs Last Recorded V/S: Last Vital Signs Temp 97.6 F 10/09/21 21:07 Pulse 91 10/09/21 21:07 Resp 18 10/09/21 21:07 BP 94/59 L 10/09/21 21:07 Pulse Ox 100 10/09/21 21:07 - Orders/Labs/Meds Meds: Medications Discontinued Medications Generic Name Dose Route Start Last Admin Trade Name Tanvir PRN Reason Stop Dose Admin Hydromorphone HCl 1 mg 10/09/21 21:14 10/09/21 21:39 Hydromorphone 1 Mg/Ml Syringe IM 10/09/21 21:15 1 mg ONETIME ONE Administration - Re-Assessments/Exams Free Text/Narrative Re-Assessment/Exam: 10/09/21 22:29 Patient x-rays are negative patient will be discharged home. Departure - Departure Time of Disposition: 22:29 Disposition: Home, Self-Care 01 Condition: Good Clinical Impression: Rib pain, Fall - Discharge Information *PRESCRIPTION DRUG MONITORING PROGRAM REVIEWED*: Not Applicable *COPY OF PRESCRIPTION DRUG MONITORING REPORT IN PATIENT TATE: Not Applicable Instructions: Chest Wall Pain Forms: ED Department Discharge Additional Instructions: The following information is given to patients seen in the emergency department who are being discharged to home. This information is to outline your options for follow-up care. We provide all patients seen in our emergency department with a follow-up referral. You seen today after slip and fall. We did x-rays not show any fractures. You likely have some bruising will be sore for the next few days. Please take Tylenol Motrin as needed. The need for follow-up, as well as the timing and circumstances, are variable depending upon the specifics of your emergency department visit. If you don't have a primary care physician on staff, we will provide you with a referral. We always advise you to contact your personal physician following an emergency department visit to inform them of the circumstance of the visit and for follow-up with them and/or the need for any referrals to a consulting specialist. The emergency department will also refer you to a specialist when appropriate. This referral assures that you have the opportunity for follow-up care with a specialist. All of these measure are taken in an effort to provide you with optimal care, which includes your follow-up. Under all circumstances we always encourage you to contact your private physician who remains a resource for coordinating your care. When calling for follow-up care, please make the office aware that this follow-up is from your recent emergency room visit. If for any reason you are refused follow-up, please contact the [facility] Emergency Department at and asked to speak to the emergency department charge nurse. Please follow up with your primary care physician. If you do not have a primary care physician, see below: [facility] [address] [place] [address] [id number] [facility] [address] [place] [address] Sepsis Event Note (ED) - Evaluation Sepsis Screening Result: No Definite Risk - Focused Exam Vital Signs: Vital Signs Temp Pulse Resp BP Pulse Ox 10/09/21 21:07 97.6 F 91 18 94/59 L 100 - Assessment/Plan Plan: Patient is a 36-year-old female presents today after slip and fall on ice. Patient has pain over the right side of her ribs. Will obtain images give pain control and reassess.
--- NOTE | 2021-10-09 22:10 | CR ---
Indication: Fall on ice. Technique: PA view of the chest. Two views of the right ribs. Comparison: None Findings: The heart is normal in size. The lungs are clear. No infiltrate, pleural effusion, or pneumothorax is identified. No displaced right rib fractures. Impression: No displaced right rib fractures. Dictated by Steph Spear MD @ 10/09/2021 10:08:35 PM (Electronically Signed)
--- NOTE | 2021-10-09 22:10 | CR ---
Indication: Fall on ice. Technique: Two standing views of the right hip Comparison: February 01, 2021 x-ray of the pelvis. Findings: The femoral head is seated within the acetabulum. No fracture or subluxation is identified. Impression: No fracture identified. Dictated by Steph Spear MD @ 10/09/2021 10:07:54 PM (Electronically Signed)
== END 2021-10-09 22:41 | disposition home or self-care (01) ==
LOC: MW.ED 20:38
DX: R07.81 Pleurodynia (principal); Z88.5 Allergy status to narcotic agent
CPT/HCPCS: 71101; 73502; 96372; 99283; J1170

== ENCOUNTER 2021-12-06 14:40 | Emergency (ER) | payer MEDICAID ==
[2021-12-06] MEDS ORDERED: oxyCODONE 5 MG Tab PO ONE (15:03)
[2021-12-06] MEDS ORDERED: Ondansetron 4 MG Tab.DIS PO ONE (15:03)
== END 2021-12-06 16:45 | disposition home or self-care (01) ==
LOC: MW.ED 14:40
DX: S06.0X0A Concussion without loss of consciousness, initial encounter (principal); Z88.5 Allergy status to narcotic agent; W00.0XXA Fall on same level due to ice and snow, initial encounter; Y92.481 Parking lot as the place of occurrence of the external cause
CPT/HCPCS: 70450; 99283; A9270

== ENCOUNTER 2021-12-23 16:05 | Emergency (ER) | payer BC, MEDICAID ==
[2021-12-23] MEDS ORDERED: Ondansetron 4 MG/2 ML SDV IVPUSH ONE (16:46)
[2021-12-23] MEDS ORDERED: Sodium Chloride 0.9% 10 ML Syringe FLUSH PRN (16:46)
[2021-12-23] MEDS ORDERED: Sodium Chloride 0.9% 1,000 ML IV ONE ×2 (16:46→16:48)
[2021-12-23] MEDS ORDERED: Sodium Chloride 0.9% 2.5 ML Syringe FLUSH PRN (16:46)
[2021-12-23] MEDS ORDERED: Ketorolac 30 MG/ML SDV IVPUSH ONE (16:47)
[2021-12-23 18:30] LABS: BLOOD UREA NITROGEN,BUN 9 mg/dL (7.0-18.0); CARBON DIOXIDE,CO2 26.2 mmol/L (21.0-32.0); CHLORIDE,CL 104 mmol/L (98-107); GLUCOSE RANDOM 88 mg/dL (74-106); LIPASE 121 U/L (73-393); POTASSIUM,K 3.8 mmol/L (3.5-5.1); SODIUM,NA 140 mmol/L (136-145)
[2021-12-23 18:34] LABS: CORONAVIRUS COVID-19 NAA POSITIVE (NEGATIVE); INFLUENZA A NAA NEGATIVE (NEGATIVE); INFLUENZA B NAA NEGATIVE (NEGATIVE)
[2021-12-23] MEDS ORDERED: Iopamidol 755 MG/ML 500 ML Multipack Bottle IVPUSH STA (19:13)
[2021-12-23] MEDS ORDERED: HYDROmorphone 1 MG/ML Syringe IVPUSH ONE (19:59)
== END 2021-12-23 20:14 | disposition home or self-care (01) ==
LOC: MW.ED 16:05
DX: U07.1 COVID-19 (principal); Z88.5 Allergy status to narcotic agent
CPT/HCPCS: 0240U; 36415; 74177; 80053; 81003; 83690; 85025; 96374; 96375; 99284; J1170; J1885; J2405; J7030; Q9967; 99283

== ENCOUNTER 2021-12-26 11:45 | Emergency (ER) | payer MEDICAID ==
[2021-12-26] MEDS ORDERED: Sodium Chloride 0.9% 2.5 ML Syringe FLUSH PRN (12:05)
[2021-12-26] MEDS ORDERED: Sodium Chloride 0.9% 10 ML Syringe FLUSH PRN (12:05)
[2021-12-26] MEDS ORDERED: Famotidine 20 MG/2 ML SDV IVPUSH ONE (12:06)
[2021-12-26] MEDS ORDERED: Ondansetron 4 MG/2 ML SDV IVPUSH ONE (12:06)
[2021-12-26] MEDS ORDERED: Sodium Chloride 0.9% 1,000 ML IV ONE (12:06)
[2021-12-26 12:42] LABS: BLOOD UREA NITROGEN,BUN 5 mg/dL (7.0-18.0); CARBON DIOXIDE,CO2 27.2 mmol/L (21.0-32.0); CHLORIDE,CL 105 mmol/L (98-107); GLUCOSE RANDOM 112 mg/dL (74-106); LIPASE 172 U/L (73-393); SODIUM,NA 143 mmol/L (136-145)
[2021-12-26] MEDS ORDERED: oxyCODONE 5 MG Tab PO ONE (12:49)
== END 2021-12-26 13:41 | disposition home or self-care (01) ==
LOC: MW.ED 11:45
DX: U07.1 COVID-19 (principal); Z88.5 Allergy status to narcotic agent; Z79.899 Other long term (current) drug therapy; Z90.49 Acquired absence of other specified parts of digestive tract
CPT/HCPCS: 36415; 71045; 80053; 83690; 83735; 84484; 85025; 93005; 96374; 96375; 99285; A9270; J2405; J3490; J7030; 93010; 99283

== ENCOUNTER 2022-02-15 13:37 | Emergency (ER) | payer OTHER, MEDICAID ==
[2022-02-15] MEDS ORDERED: Ketorolac 60 MG/2 ML SDV IM ONE (15:38)
== END 2022-02-15 17:20 | disposition home or self-care (01) ==
LOC: MW.ED 13:37
DX: S29.9XXA Unspecified injury of thorax, initial encounter (principal); Z88.5 Allergy status to narcotic agent; Z79.899 Other long term (current) drug therapy; Z86.16 Personal history of COVID-19; Z90.49 Acquired absence of other specified parts of digestive tract; V49.40XA Driver injured in collision with unspecified motor vehicles in traffic accident, initial encounter; Y92.410 Unspecified street and highway as the place of occurrence of the external cause
CPT/HCPCS: 71046; 96372; 99284; J1885; 99283

== ENCOUNTER 2022-04-22 18:58 | Emergency (ER) | payer MEDICAID ==
[2022-04-22] MEDS ORDERED: Ondansetron 4 MG/2 ML SDV IVPUSH ONE (22:37)
[2022-04-22] MEDS ORDERED: Morphine 4 MG/ML VIAL IVPUSH ONE (22:37)
[2022-04-22 23:46] LABS: CARBON DIOXIDE,CO2 30.4 mmol/L (21.0-32.0); POTASSIUM,K 3.1 mmol/L (3.5-5.1)
[2022-04-23] MEDS ORDERED: Morphine 4 MG/ML VIAL IVPUSH ONE (00:09)
[2022-04-23] MEDS ORDERED: HYDROmorphone 1 MG/ML Syringe IVPUSH STA (00:24)
[2022-04-23] MEDS ORDERED: Iopamidol 755 MG/ML 500 ML Multipack Bottle IVPUSH STA (00:44)
== END 2022-04-23 01:57 | disposition home or self-care (01) ==
LOC: MW.ED 18:58
DX: R10.84 Generalized abdominal pain (principal); Z88.5 Allergy status to narcotic agent
CPT/HCPCS: 36415; 74177; 80053; 81001; 83690; 84703; 85025; 87086; 96374; 96375; 99284; J1170; J2270; J2405; Q9967

== ENCOUNTER 2022-05-06 13:09 | Emergency (ER) | payer OTHER, MEDICAID ==
[2022-05-06] MEDS ORDERED: Sodium Chloride 0.9% 2.5 ML Syringe FLUSH PRN (13:10)
[2022-05-06] MEDS ORDERED: Morphine 4 MG/ML VIAL IVPUSH ONE (13:12)
[2022-05-06] MEDS ORDERED: Ondansetron 4 MG/2 ML SDV IVPUSH ONE (13:12)
[2022-05-06] MEDS ORDERED: HYDROmorphone 1 MG/ML Syringe IM STA (13:26)
[2022-05-06] MEDS: Sodium Chloride 0.9% 10 ML Syringe FLUSH PRN ×2 (13:57→14:42)
[2022-05-06] MEDS ORDERED: HYDROmorphone 1 MG/ML Syringe IVPUSH ONE (14:24)
[2022-05-06] MEDS ORDERED: Ketorolac 30 MG/ML SDV IVPUSH ONE (15:31)
[2022-05-06] MEDS ORDERED: Diazepam 5 MG Tab PO ONE (15:32)
[2022-05-06 15:33] LABS: BLOOD UREA NITROGEN,BUN 10 mg/dL (7.0-18.0); CARBON DIOXIDE,CO2 19.9 mmol/L (21.0-32.0); CHLORIDE,CL 102 mmol/L (98-107); GLUCOSE RANDOM 87 mg/dL (74-106); SODIUM,NA 135 mmol/L (136-145)
[2022-05-06 15:35] LABS: ESTIMATED GFR 97 mL/min (>60)
== END 2022-05-06 17:48 | disposition home or self-care (01) ==
LOC: MW.ED 13:09
DX: S32.019A Unspecified fracture of first lumbar vertebra, initial encounter for closed fracture (principal); Z88.5 Allergy status to narcotic agent; Z79.899 Other long term (current) drug therapy; Z86.16 Personal history of COVID-19; Z90.49 Acquired absence of other specified parts of digestive tract; V49.40XA Driver injured in collision with unspecified motor vehicles in traffic accident, initial encounter; Y92.410 Unspecified street and highway as the place of occurrence of the external cause
CPT/HCPCS: 36415; 36573; 70450; 71045; 71275; 72125; 72128; 72131; 72170; 73600; 74177; 80053; 80307; 85025; 86850; 86900; 86901; 96372; 96374; 96375; 99285; A9270; J1170; J1885; J2270; J2405; J3490

== ENCOUNTER 2022-06-18 10:28 | Emergency (ER) | payer MEDICAID | END 2022-06-18 11:26 | disposition home or self-care (01) | LOC: MW.ED 10:28 | DX: G89.29 Other chronic pain (principal); M54.50 Low back pain, unspecified; Z88.5 Allergy status to narcotic agent; Z86.16 Personal history of COVID-19 | CPT/HCPCS: 99283 ==

== ENCOUNTER 2022-10-04 02:06 | Emergency (ER) | payer MEDICAID ==
[2022-10-04] MEDS ORDERED: HYDROmorphone 1 MG/ML Syringe IM ONE (02:38)
== END 2022-10-04 04:41 | disposition home or self-care (01) ==
LOC: MW.ED 02:06
DX: M54.50 Low back pain, unspecified (principal); Z88.5 Allergy status to narcotic agent; W18.30XA Fall on same level, unspecified, initial encounter
CPT/HCPCS: 72131; 96372; 99284; J1170

== ENCOUNTER 2023-05-15 15:28 | Emergency (ER) | payer MEDICAID ==
[2023-05-15] MEDS ORDERED: Sodium Chloride 0.9% 10 ML Syringe FLUSH PRN (15:57)
[2023-05-15] MEDS ORDERED: Sodium Chloride 0.9% 2.5 ML Syringe FLUSH PRN (15:57)
[2023-05-15] MEDS ORDERED: Ondansetron 4 MG/2 ML SDV IVPUSH ONE (15:57)
[2023-05-15] MEDS ORDERED: HYDROmorphone 1 MG/ML Syringe IVPUSH ONE ×2 (15:57→19:04)
[2023-05-15] MEDS ORDERED: Sodium Chloride 0.9% 1,000 ML IV ONE (16:00)
[2023-05-15 16:49] LABS: BASOPHILS PERCENT AUTO 0.4 % (0.0-1.5); EOSINOPHILS ABSOLUTE AUTO 0.1 K/uL (0.0-0.7); EOSINOPHILS PERCENT AUTO 1.2 % (0.0-7.0); HEMATOCRIT 37.7 % (36.0-46.0); HEMOGLOBIN 12.7 g/dL (12.0-16.0); LYMPHOCYTES ABSOLUTE AUTO 1.5 K/uL (0.6-2.4); LYMPHOCYTES PERCENT AUTO 30.4 % (16.0-40.0); MEAN CORPUSCULAR HEMOGLOBIN 31.8 pg (27.0-32.0); MEAN CORPUSCULAR HGB CONC 33.7 g/dL (31.0-37.0); MEAN CORPUSCULAR VOLUME 94.5 fL (80.0-98.0); MONOCYTES ABSOLUTE AUTO 0.3 K/uL (0.0-0.8); MONOCYTES PERCENT AUTO 6.2 % (0.0-15.0); NEUTROPHILS ABSOLUTE AUTO 3.1 K/uL (1.4-5.7); NEUTROPHILS PERCENT AUTO 61.8 % (48.0-80.0); NRBC ABSOLUTE 0 K/uL; PLATELET COUNT,PLT 266 K/uL (150-400); RED BLOOD CELL COUNT 3.99 M/uL (4.30-5.90); WHITE BLOOD CELL COUNT,WBC 4.97 K/uL (4.0-11.0)
[2023-05-15 16:53] LABS: APPEARANCE,URINE CLEAR; BILIRUBIN,URINE NEGATIVE (NEGATIVE); COLOR,URINE YELLOW; GLUCOSE,URINE NEGATIVE (NEGATIVE); KETONES,URINE NEGATIVE (NEGATIVE); LEUKOCYTE ESTERASE,URINE NEGATIVE (NEGATIVE); NITRITE,URINE NEGATIVE (NEGATIVE); OCCULT BLOOD,URINE NEGATIVE (NEGATIVE); PROTEIN,URINE NEGATIVE (NEGATIVE); UROBILINOGEN,URINE 0.2 EU/dL (<2.0)
[2023-05-15 17:06] LABS: A/G RATIO 0.9 (0.9-1.6); ALBUMIN 3.3 g/dL (3.4-5.0); BILIRUBIN TOTAL 0.6 mg/dL (0.2-1.0); CALCIUM 8.5 mg/dL (8.5-10.1); CARBON DIOXIDE,CO2 27.2 mmol/L (21.0-32.0); CREATININE 0.8 mg/dL (0.6-1.0); EST CRCL DRUG DOSING (CG) 71.95 mL/min; POTASSIUM,K 3.5 mmol/L (3.5-5.1); PROTEIN TOTAL,TP 6.9 g/dL (6.4-8.2)
[2023-05-15] MEDS ORDERED: Ketorolac 30 MG/ML SDV IVPUSH ONE (17:15)
[2023-05-15] MEDS ORDERED: Iopamidol 755 Mg/ML 100 ML Bottle IVPUSH ONE (18:23)
[2023-05-15] MEDS ORDERED: Naloxone 0.4 MG/ML SDV IVPUSH PRN (19:04)
== END 2023-05-15 19:25 | disposition home or self-care (01) ==
LOC: MW.ED 15:28
DX: R10.32 Left lower quadrant pain (principal); S32.019A Unspecified fracture of first lumbar vertebra, initial encounter for closed fracture; F17.210 Nicotine dependence, cigarettes, uncomplicated; Z86.16 Personal history of COVID-19; Z88.5 Allergy status to narcotic agent; Z79.899 Other long term (current) drug therapy
CPT/HCPCS: 36415; 74177; 80053; 81003; 83690; 83735; 85025; 85610; 85730; 96374; 96375; 96376; 99284; J1170; J1885; J2405; J3490; Q9967

== ENCOUNTER 2023-05-23 02:14 | Emergency (ER) | payer MEDICAID ==
[2023-05-23] MEDS ORDERED: HYDROmorphone 1 MG/ML Syringe IM ONE (02:33)
== END 2023-05-23 03:01 | disposition home or self-care (01) ==
LOC: MW.ED 02:14
DX: S32.000A Wedge compression fracture of unspecified lumbar vertebra, initial encounter for closed fracture (principal); Z88.5 Allergy status to narcotic agent; Z86.16 Personal history of COVID-19
CPT/HCPCS: 96372; 99283; J1170

== ENCOUNTER 2023-06-07 14:40 | Emergency (ER) | payer MEDICAID ==
[2023-06-07] MEDS ORDERED: Ketorolac 60 MG/2 ML SDV IM ONE (15:51)
[2023-06-07] MEDS ORDERED: Lidocaine 4% 1 each Patch TOP ONE (16:15)
[2023-06-07 16:19] LABS: BASOPHILS PERCENT AUTO 0.6 % (0.0-1.5); EOSINOPHILS ABSOLUTE AUTO 0.1 K/uL (0.0-0.7); EOSINOPHILS PERCENT AUTO 1.2 % (0.0-7.0); HEMATOCRIT 36.5 % (36.0-46.0); HEMOGLOBIN 12.4 g/dL (12.0-16.0); LYMPHOCYTES ABSOLUTE AUTO 1.7 K/uL (0.6-2.4); LYMPHOCYTES PERCENT AUTO 32.9 % (16.0-40.0); MEAN CORPUSCULAR HEMOGLOBIN 31.4 pg (27.0-32.0); MEAN CORPUSCULAR VOLUME 92.4 fL (80.0-98.0); MONOCYTES ABSOLUTE AUTO 0.4 K/uL (0.0-0.8); MONOCYTES PERCENT AUTO 8.1 % (0.0-15.0); NEUTROPHILS ABSOLUTE AUTO 2.9 K/uL (1.4-5.7); NEUTROPHILS PERCENT AUTO 57.2 % (48.0-80.0); NRBC ABSOLUTE 0 K/uL; PLATELET COUNT,PLT 253 K/uL (150-400); RED BLOOD CELL COUNT 3.95 M/uL (4.30-5.90); WHITE BLOOD CELL COUNT,WBC 5.07 K/uL (4.0-11.0)
[2023-06-07 17:16] LABS: ALBUMIN 3.1 g/dL (3.4-5.0); BILIRUBIN TOTAL 0.5 mg/dL (0.2-1.0); CALCIUM 8.9 mg/dL (8.5-10.1); CARBON DIOXIDE,CO2 32.5 mmol/L (21.0-32.0); CREATININE 0.7 mg/dL (0.6-1.0); EST CRCL DRUG DOSING (CG) 86.18 mL/min; POTASSIUM,K 3.5 mmol/L (3.5-5.1); PROTEIN TOTAL,TP 6.2 g/dL (6.4-8.2)
== END 2023-06-07 18:04 | disposition home or self-care (01) ==
LOC: MW.ED 14:40
DX: R07.81 Pleurodynia (principal); Z88.5 Allergy status to narcotic agent; Z86.16 Personal history of COVID-19
CPT/HCPCS: 36415; 71046; 80053; 85025; 85652; 86140; 96372; 99285; A9270; J1885; 93010; 99283

== ENCOUNTER 2023-07-02 22:58 | Emergency (ER) | payer OTHER, MEDICAID ==
[2023-07-03] MEDS ORDERED: Ketorolac 30 MG/ML SDV IM ONE (00:20)
[2023-07-03] MEDS ORDERED: Cyclobenzaprine 10 MG Tab PO ONE (00:20)
== END 2023-07-03 00:40 | disposition home or self-care (01) ==
LOC: MW.ED 22:58
DX: M54.9 Dorsalgia, unspecified (principal); G89.29 Other chronic pain; M79.10 Myalgia, unspecified site; Z86.16 Personal history of COVID-19; Z79.899 Other long term (current) drug therapy; Z88.5 Allergy status to narcotic agent; V89.2XXA Person injured in unspecified motor-vehicle accident, traffic, initial encounter; Y92.410 Unspecified street and highway as the place of occurrence of the external cause
CPT/HCPCS: 96372; 99283; A9270; J1885